=== PATIENT | male | born 1970 | race Caucasian/White ===

== ENCOUNTER 2020-12-17 08:38 | Outpatient (CLI) | payer MEDICARE, SELFPAY ==
--- NOTE | 2020-12-17 08:46 | FL_ITS ---
WS: [id number] DOUBLE CONTRAST UPPER GI EXAMINATION HISTORY: K21.9 - Gastro-esophageal reflux disease without esophagitis COMPARISON: None available. FLUOROSCOPY TIME: 2.5 minutes. Barium mixture traversed normally throughout the esophagus. No filling defects within the stomach. Du odenal bulb was normally distensible and pliable. No gastroesophageal reflux No hiatal hernia was demonstrated on this exam. FL/FL upper GI w air* [id number] IMPRESSION: Normal upper GI examination.
== END 2020-12-17 08:39 | disposition home or self-care (01) ==
LOC: RADWPI 08:41
PROVIDERS: PCP Nurse Practitioner Family; Visit Provider Surgery
DX: K21.9 Gastro-esophageal reflux disease without esophagitis (principal)
CPT/HCPCS: 74246

== ENCOUNTER 2021-02-03 13:11 | Outpatient (CLI) | payer MEDICARE, SELFPAY | END 2021-02-03 13:12 | disposition home or self-care (01) | LOC: WOUND 13:12 | PROVIDERS: PCP Nurse Practitioner Family; Visit Provider Thoracic Surgery (Cardiothoracic Vascular Surgery) | DX: E11.621 Type 2 diabetes mellitus with foot ulcer (principal); L97.422 Non-pressure chronic ulcer of left heel and midfoot with fat layer exposed | CPT/HCPCS: 11042; G0463 ==

== ENCOUNTER 2021-02-05 07:59 | Day surgery (SDC) | payer MEDICARE, SELFPAY ==
[2021-02-03 10:45] VITALS: BMI 37.5
--- NOTE | 2021-02-05 08:07 | ANES.PREANE2 ---
Pre-Anesthetic Assessment Pre-Anesthetic Assessment: Height/Weight: Height 2.03 m Weight 155.129 kg Preop Diagnosis: screning Proposed Procedure: Operation Date: 02/05/21 09:45 Proposed Procedures p Colonoscopy 46296 Z12.11(Not Applicable) - Orlando Olguin MD Familial anesthetic complications: None Was Beta Kennedy taken within 24 hours: Yes Was Clonidine taken within 24 hours: N/A Last intake: NPO > 8 hrs Social: Social History: No alcohol and No tobacco Exam: Pre-Anes Outpt Exam: alert, oriented x 3, clear to auscultation bilaterally and regular rate & rhythm Airway: Cervical ROM: WNL MP: 3 Dentition: Other (missing) Additional comments: full [place] Pulmonary: Pulmonary: COPD and Sleep apnea CV/HEM: CV/HEM: Arrythmia and HTN Comments: hx infective endocarditis afer back surgery infection in 2016, heart doing well now, unable to achieve > 4 METS without SOB, but he attributes this to physical deconditioning. Denies chest pains or palpitations. Metabolic: Metabolic: DM and Hyperlipidemia PFSH Anesthesia PFSH: Family History Denies family history of Anesthesia complication Bleeding disorder Social History Smoking and tobacco status: never smoked Data Anesthesia Cardiac Studies: No Data to Display
[2021-02-05 08:55] VITALS: BP 152/106; PULSE 69; RESP 18; TEMP 36.7; O2SAT 99
[2021-02-05] MEDS: sodium chloride 0.9% 1,000 ML 30 ML IV (09:12)
[2021-02-05 09:14] LABS: Glucose Point of Care 85 mg/dL (70-110)
--- NOTE | 2021-02-05 09:24 | W.PM.OPSUD ---
Surgery/Procedure H&P Update DATE OF PROCEDURE: February 05, 2021 DATE H&P PERFORMED: 01/09/21 H&P UPDATE INFORMATION: I have reviewed H&P completed within last 30 days, I have examined patient prior to procedure and No changes to prior documentation PREOP DIAGNOSIS: Screening colonoscopy PRIMARY INDICATION FOR PROCEDURE: The same PLANNED PROCEDURE: Operation Date: 02/05/21 09:45 Proposed Procedures p Colonoscopy 82953 Z12.11(Not Applicable) - Orlando Olguin MD
[2021-02-05 10:18] VITALS: BP 128/74; PULSE 68; RESP 16; TEMP 36.4; O2SAT 94
[2021-02-05 10:28] VITALS: BP 140/81; PULSE 70; RESP 18; O2SAT 98
--- NOTE | 2021-02-05 13:14 | ANE.PACU2 ---
Inpatient post-anesthesia follow up: Airway intact: Yes Vital signs: Temperature 97.6 F Pulse Rate 70 Respiratory Rate 18 Blood Pressure 140/81 Pulse Oximetry 98 Oxygen Delivery Me thod Room Air Oxygen Flow Rate Fraction of Inspir ed Oxygen Hydration adequate: Yes Nausea and vomiting: No Pain level: 1 Mental status: Baseline
== END 2021-02-05 10:50 | disposition home or self-care (01) ==
PROVIDERS: PCP Nurse Practitioner Family; Visit Provider Surgery
PROC: 0DJD8ZZ Inspection of Lower Intestinal Tract, Via Natural or Artificial Opening Endoscopic (ICD-10-PCS; CPT 45378; principal; 2021-02-05 09:45)
DX: Z12.11 Encounter for screening for malignant neoplasm of colon (principal); D12.2 Benign neoplasm of ascending colon; D12.8 Benign neoplasm of rectum; J44.9 Chronic obstructive pulmonary disease, unspecified; G47.30 Sleep apnea, unspecified; I10 Essential (primary) hypertension; E78.5 Hyperlipidemia, unspecified; E11.9 Type 2 diabetes mellitus without complications
CPT/HCPCS: 36416; 45385; 82962; 88305; 96360; J2704; J7030

== ENCOUNTER 2021-02-10 14:31 | Outpatient (CLI) | payer MEDICARE, SELFPAY | END 2021-02-10 14:32 | disposition home or self-care (01) | LOC: WOUND 14:32 | PROVIDERS: PCP Nurse Practitioner Family; Visit Provider Thoracic Surgery (Cardiothoracic Vascular Surgery) | DX: E11.621 Type 2 diabetes mellitus with foot ulcer (principal); L97.422 Non-pressure chronic ulcer of left heel and midfoot with fat layer exposed | CPT/HCPCS: 11042 ==

== ENCOUNTER 2021-02-17 13:59 | Outpatient (CLI) | payer MEDICARE, SELFPAY | END 2021-02-17 14:00 | disposition home or self-care (01) | LOC: WOUND 14:00 | PROVIDERS: PCP Nurse Practitioner Family; Visit Provider Thoracic Surgery (Cardiothoracic Vascular Surgery) | DX: E11.621 Type 2 diabetes mellitus with foot ulcer (principal); L97.421 Non-pressure chronic ulcer of left heel and midfoot limited to breakdown of skin | CPT/HCPCS: 97597 ==

== ENCOUNTER 2021-02-24 13:49 | Outpatient (CLI) | payer MEDICARE, SELFPAY | END 2021-02-24 13:50 | disposition home or self-care (01) | LOC: WOUND 13:51 | PROVIDERS: PCP Nurse Practitioner Family; Visit Provider Thoracic Surgery (Cardiothoracic Vascular Surgery) | DX: Z09 Encounter for follow-up examination after completed treatment for conditions other than malignant neoplasm (principal) | CPT/HCPCS: 99212 ==

== ENCOUNTER → 2021-05-29 13:27 | Outpatient (BNVA) | payer MEDICARE, SELFPAY | PROVIDERS: PCP Nurse Practitioner Family; Visit Provider Psychiatry & Neurology Psychiatry | DX: F32.9 Major depressive disorder, single episode, unspecified (principal); F41.1 Generalized anxiety disorder; F17.200 Nicotine dependence, unspecified, uncomplicated; Z63.4 Disappearance and death of family member | CPT/HCPCS: 99204 ==

== ENCOUNTER 2021-07-07 14:21 | Outpatient (CLI) | payer MEDICARE, SELFPAY ==
[2021-07-07 15:34] LABS: Basophils % 0.7 %; Eosinophils # 0.1 10^3/uL (0.0-0.8); Hematocrit 40.3 % (42.0-52.0); Hemoglobin 12.7 g/dL (11.7-16.6); Lymphocytes # 1.1 10^3/uL (0.8-4.8); Lymphocytes % 18.8 %; Mean Corpuscular HGB Conc 31.5 g/dL (30.0-36.0); Mean Corpuscular Hemoglobin 28.2 pg (28.0-34.0); Mean Corpuscular Volume 89.6 fl (80-94); Mean Platelet Volume 11.7 fL (7.4-10.4); Monocytes # 0.4 10^3/uL (0.2-0.9); Monocytes % 6.9 %; Neutrophils # 4.34 10^3/uL (1.8-7.7); Neutrophils % 71.4 %; Nucleated Red Blood Cells % 0 %; Platelet Count 182 10^3/cmm (130-400); Red Cell Distribution Width 13.6 % (12.1-15.1); White Blood Count 6.1 10^3/uL (4.0-10.0)
[2021-07-07 16:16] LABS: Calcium 8.5 mg/dL (8.5-10.5)
[2021-07-07 16:21] LABS: Parathyroid Hormone 50.4 pg/mL (15-65)
[2021-07-07 16:27] LABS: Alanine Aminotransferase 29 U/L (0-41); Albumin Level 3.2 g/dL (3.5-5.2); Alkaline Phosphatase 88 IU/L (40-130); Anion Gap 12.5 (5-19); Aspartate Amino Transferase 26 U/L (0-40); Blood Urea Nitrogen 27 mg/dL (6-20); Calcium 8.7 mg/dL (8.5-10.5); Carbon Dioxide 30 mmol/L (22-29); Chloride 105 mmol/L (98-107); Chol HDL Ratio 3.54 mg/dL (1.0-5.00); Cholesterol 145 mg/dL (0-200); Ferritin 290 ng/mL (30-400); Globulin 2.8 g/dL (1.3-4.6); Glomerular Filtration Rate 49.3 mL/min (90-130); Glucose 89 mg/dL (65-115); HDL Cholesterol 41 mg/dL (60-100); Iron 52 ug/dL (59-158); LDL Cholesterol Calculated 73 mg/dL (50-129); LDL HDL Ratio 1.78 RATIO (0.00-3.22); Magnesium 1.9 mg/dL (1.7-2.3); Osmolality Calculated 301 mOsm/kg (285-295); Percent Saturation 19.4 % (20-50); Potassium 4.5 mmol/L (3.5-5.1); Sodium 143 mmol/L (136-145); Thyroid Stimulating Hormone 3.06 uIU/mL (0.27-4.20); Total Bilirubin 0.2 mg/dL (0.15-1.2); Total Iron Binding Capacity 267 mcg/dl; Triglycerides 157 mg/dL (0-150); Unsaturated Iron Binding 215 ug/dL (112-347); Vitamin B12 744 pg/mL (232-1245)
[2021-07-07 16:49] LABS: Folate Level 15.2 ng/mL (4.5-32.2)
[2021-07-10 16:41] LABS: Vit D 1,25 (Oh)2, Total 15 pg/mL (18-72); Vit D2 1,25 (Oh)2 <8 pg/mL; Vit D3 1,25 (Oh)2 15 pg/mL
[2021-07-11 16:29] LABS: Vitamin B1(Thiamin) Plas/Ser 22 nmol/L (8-30)
[2021-07-18 16:02] LABS: Zinc Level, Serum or Plasma 67 mcg/dL (60-130)
== END 2021-07-07 14:22 | disposition home or self-care (01) ==
LOC: LAB 14:35
PROVIDERS: PCP Nurse Practitioner Family; Visit Provider Surgery
DX: E11.9 Type 2 diabetes mellitus without complications (principal); E66.01 Morbid (severe) obesity due to excess calories
CPT/HCPCS: 36415; 80053; 80061; 82310; 82607; 82652; 82728; 82746; 83540; 83550; 83735; 83970; 84425; 84443; 84630; 85025

== ENCOUNTER → 2021-07-10 10:23 | Outpatient (BNVA) | payer MEDICARE, SELFPAY | PROVIDERS: PCP Nurse Practitioner Family; Visit Provider Psychiatry & Neurology Psychiatry | DX: F41.1 Generalized anxiety disorder (principal); F33.2 Major depressive disorder, recurrent severe without psychotic features; F17.200 Nicotine dependence, unspecified, uncomplicated | CPT/HCPCS: 87635; 99214 ==

== ENCOUNTER 2021-07-15 13:45 | Inpatient (IN) | payer MEDICARE, SELFPAY ==
[2021-07-14 09:11] VITALS: BMI 38.3
--- NOTE | 2021-07-14 18:38 | ANES.PREANE2 ---
Pre-Anesthetic Assessment Pre-Anesthetic Assessment: Height/Weight: Height 2.03 m Weight 158.304 kg Preop Diagnosis: Screening colonoscopy Proposed Procedure: Operation Date: 07/15/21 09:00 Proposed Procedures p Laparoscopic Gastric Sleeve w/ EGD 13671 07301 E66.01 Z68.41 e11.9(Not Applicable) - Orlando Olguin MD Was Beta Kennedy taken within 24 hours: Yes Was Clonidine taken within 24 hours: N/A Social: Social History: Tobacco and No alcohol Exam: Pre-Anes Outpt Exam: alert, oriented x 3 and regular rate & rhythm Airway: Submandibular: WNL Cervical ROM: WNL MP: 2 Dentition: Chipped Pulmonary: Pulmonary: Asthma and Sleep apnea CV/HEM: CV/HEM: HTN Metabolic: Metabolic: DM, Hyperlipidemia and Morbid obesity Musc/skel: Musc/skel: Lower Back Pain Neuropsych: Neuropsych: Anxiety and Depression Anesthetic Plan: ASA status: 3 Anesthesia: General Risk of > 500 ml blood loss (7ml/kg in children): No PFSH Anesthesia PFSH: Medical History Chronic major depressive disorder Colon polyp Diabetes Encounter for screening colonoscopy Morbid obesity Family History Denies family history of Anesthesia complication Bleeding disorder Social History Quit status (tobacco): has tried quititng Number of times tried to quit tobacco: 3 Second hand smoke exposure: Yes Data Anesthesia Cardiac Studies: No Data to Display
[2021-07-15] VITALS (15 sets, daily range): BP systolic 130–169; BP diastolic 75–103; PULSE 78–113; RESP 12–20; TEMP 36.1–36.8; O2SAT 91–98
[2021-07-15] MEDS: sodium chloride 0.9% 1,000 ML 999 ML IV (07:51)
[2021-07-15] MEDS: acetaminophen 1,000 MG/100 ML PIGGYBACK 400 MG IV ×2 (07:53→16:04)
[2021-07-15] MEDS: heparin 5,000 unit/mL INJ 1 mL 5000 UNIT SUBCUT (07:55)
--- NOTE | 2021-07-15 07:55 | P.ANESUD_ITS ---
Pre-Anesthetic Update Pre-Anesthetic Assessment: Date of Surgery/Procedure: 07/15/21 Preop Angle gnosis: Screening colonoscopy Proposed Procedure: Operation Date: 07/15/21 09:00 Proposed Procedures p Laparoscopic Gastric Sleeve w/ EGD 41595 76483 E66.01 Z68.41 e11.9(Not Applicable) - Orlando Olguin MD Any changes to Pre-Anesthetic Assessment?: No Last Intake: Intake Last Liquid Date 07/14/21 Last Liquid Time 19:30 Last Solid Date 07/14/21 Last Solid Time 19:30 Vitals: Temperature 97.3 F L 07/15/21 07:34 Temperature Source Temporal Artery S can 07/15/21 07:34 Pulse Rate 78 07/15/21 07:34 Respiratory Rate 18 07/15/21 07:34 Blood Pressure 165/82 07/15/21 07:34 Blood Pressure [place] 109 07/15/21 07:34 Pulse Oximetry 93 07/15/21 07:34 Oxygen Delivery Me thod 07/15/21 07:37 Exam: Pre-Anes Outpt Exam: alert, oriented x 3, clear to auscultation bilaterally and regular rate & rhythm Cardiac Studies: No Data to Display
[2021-07-15] MEDS: scopolamine 1.5 Patch 1 PATCH TRANSDERMA ×2 (07:56→15:05)
[2021-07-15] MEDS: pantoprazole 40 mg SDV IVP (08:00)
--- NOTE | 2021-07-15 09:27 | W.PM.OPSUD ---
Surgery/Procedure H&P Update DATE OF PROCEDURE: July 15, 2021 DATE H&P PERFORMED: 06/19/21 H&P UPDATE INFORMATION: I have reviewed H&P completed within last 30 days, I have examined patient prior to procedure and Changes to prior documentation as noted here (Patient lost 16 pounds over 2 weeks on liquid protein diet.) PREOP DIAGNOSIS: Obesity PRIMARY INDICATION FOR PROCEDURE: The same PLANNED PROCEDURE: Operation Date: 07/15/21 09:00 Proposed Procedures p Laparoscopic Gastric Sleeve w/ EGD 91629 36769 E66.01 Z68.41 e11.9(Not Applicable) - Orlando Olguin MD
[2021-07-15] MEDS: clindamycin 900 MG/50 ML PREMIX 100 MG IV (10:20)
[2021-07-15 10:50] LABS: Glucose Point of Care 72 mg/dL (70-110)
--- NOTE | 2021-07-15 13:04 | P.OP_ITS ---
Operative Report Date of procedure: July 15, 2021 Pre-op Diagnosis: Obesity Post-op diagnosis: same Procedure Done: Laparoscopic vertical sleeve gastrectomy and intraoperative EGD Implants: Surgicel towards the GE junction Specimens removed/disposition: Subtotal gastrectomy status post sleeve gastrectomy with sutures marked proximal Surgeon: Orlando Olguin Tube Sizer And Cutter Operator: Surgical rome Keating/PAT Circulating nurse Sunshine Proctor Anesthesia: General (ALVARO Estrada and Dr. Luz) Estimated blood loss (mL): 20 IV fluids (mL): 1,100 Urine output (mL): 300 Condition: stable Disposition: floor Brief History: Obesity Procedure: Patient was identified in holding area , appropriate pharmacologic DVT prophylaxis was given and preoperative IV fluid hydration, patient was then taken to the operating room where the patient was placed in supine position, intubated by anesthesia prophylactic antibiotics were given per protocol,Time- out was done verifying the patient's name/date of /planned procedure and destination after the procedure, all were in agreement.SCDs confirmed to be functioning, and beta twyla protocol was confirmed. A Viramontes catheter was inserted by the circulating nurse revealing clear urine. A foot board was applied to secure the patient while the patient is placed in reversed Trendelenburg, all pressure points were padded, and the patient was appropriately secured to the table, anesthesia was asked to rotate the table back and forth to verify that the patient is appropriately secured, and that was the case, special attention was paid to the patient's feet due to history of diabetic foot ulcers. As they were well padded. The abdomen was prepped and draped under the usual sterile technique. A transverse incision was made with a 15 blade scalpel approximately 15 cm below the xiphoid process and 3 cm left of the midline.A 5 mm optical trocar port was placed under direct vision into the peritoneal cavity without intial evidence of injury to peritoneal structures upon entry. The peritoneal cavity was insufflated with carbon dioxide gas up to 15 mmHg pressure.A 45? angle laparoscopy was placed through the port into the peritoneal cavity there was no significant blood, fluid, or evidence of intra-abdominal injury under direct visualization,Longer trocars were then used;a 12 mm trocar port was placed in the right epigastric region and a fourth 5 mm trocar port was placed in the mid epigastric region more caudad than and medial to the previous port. A 5 mm trocar port was placed in the left lateral flank and additional 5 mm trocar was inserted midway between the left lateral flank trocar and the initial 5 mm trocar. There after the index 5 mm trocar was switched to a 12 mm trocar under direct visualization after extending the skin incision. I lifted the omentum up to make sure there were no injuries encountered from the initial trocar insertion, the underlying transverse colon and small bowel viscera were normal. A subxiphoid stab incision was made and dissection into the peritoneum with 5 mm obturator. A grasping laparoscopic clamp was inserted through here and clamped to the right eulalia of the diaphragm to elevate The liver for the entirety of the case. All trocars inserted were long arc trocars due to the thick layer of subcutaneous tissue that the patient has Patient was then placed in the reversed Trendelenburg. Following this, the greater curvature of the stomach was freed from the omentum using the Enseal device. This division included the short gastric vessels proximally. This dissection was carried from approximately 4 cm-6 cm proximal to the pylorus and extending all the way up to the angle of Hiss. During this process the posterior aspect of the stomach was mobilized from the underlying peritoneum and the posterior aspect of the stomach was well exposed. With the greater curvature of the stomach exposed from within 4-6 cm of the pylorus and extending to the angle of Hiss, which also included the posterior stomach, a 40 Emir[place] standard template passed under direct vision down the esophagus, stomach, and into the first part of the duodenum by the anesthesia provider and under direct guidance and visualization by me,via the laparoscopy. Using the template 40 Emir[place] aligned along the lesser curvature of the stomach and all the way to the first part of the Duodenum,the 40 [place] Bougie was used as a template the laparoscopic vertical gastric sleeve was performed starting from a point about 5 cm from the pylorus along the greater curvature.Using the Gorst Laparoscopic EMILY linear cutting stapler with Poly Adaptive enforcement, a series of osiel were used to transect the stomach in a vertical fashion along the left side of the template. Through the entire division of the stomach using the staplers,the template was always checked to be in good place and well aligned to the lesser curvature while dividing the stomach. This was carried all the way to the angle of Hiss.Gorst 60 mm Green loads were used for the distal third of the stomach and Gold loads were used for the more proximal part of the stomach and then blue loads with reinforcement.All staplers were reinforced by Endopath. The staple line along the remaining tubularized stomach was tested for leaks and bleeding under direct vision as the 40 [place] template was exchanged (and there was no evidence of blood on the tip of the template) by a standard diagnostic EGD via the mouth by my me after I scrubbed out, insufflation was achieved using CO2 gas and the staple line submerged under saline ,meanwhile a clamp was applied distally onto the end of the tubularized stomach to allow insufflation test for leak. There was no evidence of leak .There was adequate hemostasis along the staple line.EGD was taken out at this point after deflation of the tubularized stomach. The transected partial stomach, which included the greater curvature, was removed from the peritoneum through the first 12 mm trocar site, and was sent fo r permanent pathology.Prior to closure of the fascia. A final look laparoscopy identified no injuries or bleeding. Multiple 5 mm clips were applied to secure hemostasis along the staple line and small piece of Surgicel at the GE junction was placed followed by placement of [id number] suture to grab the omentum onto that same site to secure hemostasis. Bilateral TAP (transversus abdominous plain peripheral nerve block )block using Exparel 20 mL Exparel 40 ml Normal saline 20 ml bupivacaine 0.25% 30 mL on each side injected 20 mL injected the port sites An interrupted #1 PDS suture on a granny needle suture passer was used to close the right epigastric and the other 12 mm trocar left of the midline fascial defects under direct visualization.The other trocars were removed under direct vision and no evidence of bleeding was identified. The pneumoperitoneum was decompressed.All skin incisions were irrigated with saline, then closed with osiel, followed by application of sterile dressings.The patient was extubated and taken to the recovery room with normal vital signs. All counts of instruments,sponges and needles were completed at the end of the procedure I was present for the whole entire procedure
--- NOTE | 2021-07-15 13:58 | PC.NUTR ---
Nutrition consult for post-bariatric surgery received. Have updated diet order per Bariatric Phase 1 guidelines. Will complete full assessment tomorrow 07/16/21.
[2021-07-15] MEDS: sodium chloride 0.9% 1,000 ML 150 ML IV ×2 (15:05→22:04)
[2021-07-15] MEDS: ondansetron 2 mg/ML SDV 2 mL 4 MG IVP (15:06)
[2021-07-15 17:08] LABS: Glucose Point of Care 165 mg/dL (70-110)
[2021-07-15] MEDS: morphine 4 mg/mL SDV 1 mL 2 MG IVP (18:19)
[2021-07-15] MEDS: metoprolol tartrate 50 mg Tablet 75 MG PO (19:46)
--- NOTE | 2021-07-15 19:52 | NUR.SHIFT ---
Dr Pereira called and said to give the 75mg of metoprolol ordered at 2099 as soon as possible due to patients high bp and tachy heart rate. Metoprolol given to patient at 1946. Bp was 174/111. Tameka Reeder LPN
--- NOTE | 2021-07-15 20:22 | PC.NURSE ---
i reported high pulse 110
[2021-07-15 21:18] LABS: Glucose Point of Care 164 mg/dL (70-110)
[2021-07-15] MEDS: lisinopril 10 mg Tablet PO (22:03)
[2021-07-15] MEDS: HYDROmorphone 1 mg/mL INJ 1 mL IVP (23:52)
--- NOTE | 2021-07-15 23:55 | PC.NURSE ---
prn pain med Dilaudid admin per order for primary nurse.
--- NOTE | 2021-07-15 23:59 | PC.NURSE ---
Called Dr. Olguin about Mr. Cochran at 2129 and explained to him that after taking the metoprolol at 1946 patients BP was 174/111. Explained to doctor that patient takes captopril 25mg BID at home per his home meds. Dr. Olguin said to order the Captopril BID for him for now as well. also said that after the GI series in the morning he would consider starting the patient back on his home medications. Non formulary medication ordered through pharmacy and given to patient. BP is still remaining high. Will continue monitoring. Murray is resting in bed with no complaints. HENOK Cuenca
[2021-07-16] VITALS (11 sets, daily range): BP systolic 137–178; BP diastolic 89–100; PULSE 77–103; RESP 16–20; TEMP 36.4–37.2; O2SAT 88–93
--- NOTE | 2021-07-16 01:01 | PC.NURSE ---
i reported high pulse 103 and low 02 88 to nurse
[2021-07-16 02:35] LABS: Hemoglobin 13.3 g/dL (11.7-16.6)
[2021-07-16 03:11] LABS: Anion Gap 20.2 (5-19); Blood Urea Nitrogen 30 mg/dL (6-20); Calcium 8.4 mg/dL (8.5-10.5); Carbon Dioxide 18 mmol/L (22-29); Chloride 108 mmol/L (98-107); Glomerular Filtration Rate 45.8 mL/min (90-130); Glucose 160 mg/dL (65-115); Osmolality Calculated 302 mOsm/kg (285-295); Potassium 5.2 mmol/L (3.5-5.1); Sodium 141 mmol/L (136-145)
[2021-07-16] MEDS: heparin 5,000 unit/mL INJ 1 mL 5000 UNIT SUBCUT ×3 (04:00→20:41)
[2021-07-16] MEDS: sodium chloride 0.9% 1,000 ML 150 ML IV ×2 (04:01→13:16)
[2021-07-16] MEDS: morphine 4 mg/mL SDV 1 mL 2 MG IVP (05:12)
--- NOTE | 2021-07-16 06:14 | PM.PN ---
Documented by User: CECILIA Cadet [email or web address] 07/16/21 06:38 Subjective Subjective: Interval history: Mr. Cochran is postop day one from laparoscopic vertical sleeve gastrectomy. He reports he is overall feeling well. He does report some mild abdominal tenderness at incision sites. Viramontes catheter was removed last night. He has been able to ambulate. He denies fever, nausea, and vomiting. He has not had a bowel movement, but has passed flatus. There were no acute events overnight. Vitals/I&O/Wt Last Vital Signs Temp 98.6 F 07/16/21 04:00 Pulse 97 07/16/21 04:00 Resp 18 07/16/21 05:12 BP 159/94 07/16/21 04:00 Pulse Ox 91 07/16/21 04:00 07/15/21 07/15/21 07/16/21 14:59 22:59 06:59 Intake Total 1150 / 1150 1100 / 2250 892.5 / 3142.5 Output Total 620 / 620 1800 / 2420 Balance 530 / 530 1100 / 1630 -907.5 / 722.5 Weight last 48 hrs Weight 158.304 kg Physical Exam Narrative: EXAM NARRATIVE: General pleasant male in no acute distress. HEENT pupils reactive, oropharynx clear. No JVD or lymphadenopathy. Cardio regular rate and rhythm, positive S1-S2. No murmurs rubs or gallops. Respiratory clear to auscultation bilaterally. No wheezes rales or rhonchi. Abdomen mild tenderness at incision sites. Incisions are dry and clean. Otherwise abdomen soft nontender, no organomegaly, positive bowel sounds. Skin no rash. Extremities no cyanosis clubbing or edema. deferred. Urinary Catheter Management^: Viramontes: Cath Placed During This Visit: yes Reason for Continuing Indwelling Catheter: Perioperative Use in Selected Surgeries Urinary Catheter Date of Insertion: 07/15/21 Urinary Catheter Time of Insertion: 10:30 Data : 07/16/21 02:20 07/16/21 02:20 Other data: Anion gap 20.2 Calcium 8.4 A&P Additional A&P Information Remain n.p.o. until upper GI study is completed today, will reevaluate advancing diet once study is reviewed. Continue incentive spirometry. Encourage ambulation Coding Level of Care Code Acute Lockstitch Hemmer for Chg Fwd Diagnoses S/P laparoscopic sleeve gastrectomy Z98.84 Documented by User: Orlando Olguin MD 07/16/21 18:43 Subjective Subjective: Interval history: Overall patient is feeling well,no acute events overnight,foly catheter emoved on am rounds,BP meds started post op w sips of water. Medications: Reviewed: Yes Physical Exam Urinary Catheter Management^: Viramontes: Cath Placed During This Visit: no Data : 07/16/21 02:20 07/16/21 02:20 A&P Assessment and plan (1) S/P laparoscopic sleeve gastrectomy: S/P Laparoscopic Sleeve Gastrectomy 07/15/21 Will follow on Upper GI study,once cleared will start PO stage one psot Bariatirc surgery Drop IVF to 100 ml /hr Encourge ambulation DVT propylaxis Close monitring of K levels Status: Acute Attestations Medical Necessity Statement*: Patient will require inpatient hospitalization passing two midnights for post op care and awaiting GI study Time Spent in Patient Care: 16 - 35 minutes (>than 50% of time spent in counselling and/or direct pt care on unit). Other Attestations: I have reviewed the medical student chas's evaluation and I did perform physical exam my self and I agree on the assessment and plan of care. Coding Level of Care Code Acute Lockstitch Hemmer for Chg Fwd Diagnoses S/P laparoscopic sleeve gastrectomy Z98.84
[2021-07-16 06:46] LABS: Glucose Point of Care 149 mg/dL (70-110)
--- NOTE | 2021-07-16 08:00 | FL_ITS ---
WS: [id number] [place] upper GI series [id number] REASON FOR EXAM: Status Post Gastric Sleeve FLUOROSCOPY TIME: 0.4 minutes FINDINGS: Expected narrowing of the stomach from the gastric sleeve procedure. Orally ingested contrast passed through the region of the sleeve into the distal stomach and on into the duodenal sweep without reten tion. There was no extravasation of contrast. FL/FL upper GI series 83771 IMPRESSION: Normal postgastric sleeve upper GI examination.
[2021-07-16] MEDS: diatrizoate meglumine 120 mL Sol PO (08:40)
[2021-07-16] MEDS: metoprolol tartrate 50 mg Tablet 75 MG PO ×2 (08:50→20:41)
[2021-07-16] MEDS: lisinopril 10 mg Tablet PO ×2 (08:50→17:28)
[2021-07-16] MEDS: acetaminophen 1,000 MG/100 ML PIGGYBACK 400 MG IV ×3 (08:52→23:52)
--- NOTE | 2021-07-16 09:56 | PC.CHAP ---
Pastoral Care Encounter/Spiritual Assessment Type of Contact [] Declined county nurse visit [] Patient/Family/Request visit [] Outpatient visit [] Follow-up visit [] Physician referral [] Code/Alert [X] Routine visit [] Staff referral [] Actively dying [] Patient sleeping [] Family support [] [] Out of room [] Palliative care [] [] Receiving care in room [] Pre-surgical visit [] Trauma [] Long length of stay [] ICU visit [] Other: Relational/Emotional Strength [X] Patient feels connected with others/family/visitors/staff [] Distress [] Loneliness/isolation [] Abandonment Spirituality of Patient [X] Person of Jania [X] Attends Religious of their Jania [X] Believes in Prayer [] Reads Bible or Roman Catholic materials [] There are Spiritual issues to be addressed Hospital Mortician Interventions [X] Prayer [X] Active listening [X] Non-anxious presence [] Spiritual/emotional support [] Crisis/trauma care [] Spiritual counseling [] Bereavement support [] Provided bereavement packet [] Provided Bible/devotional materials [] Provided toy/stuffed animal, coloring book to patient or family member [] Provided Communion [] Anointing/[place] [] Salvation [X] Completed spiritual assessment [] Other: Impact on Illness or Injury [] Angry [] Fearful [] Anxious [] Often cries [] Exhaustion [] Unable to work [] Unable to attend orthodoxy [] Unable to walk/stand [] Unable to read [] Unable to drive [] Unable to eat/drink [] Unable to sleep [] Unable to be with family [] Patient intubated [] Other: Summary Time spent with patient 15 MIN
[2021-07-16 11:05] LABS: Glucose Point of Care 111 mg/dL (70-110)
[2021-07-16] MEDS: HYDROcodone-acetaminophen 5-325 mg Tablet 1 TAB PO ×2 (13:19→18:47)
--- NOTE | 2021-07-16 16:45 | ANE.PACU2 ---
Inpatient post-anesthesia follow up: Airway intact: Yes Vital signs: Temperature 99.0 F Pulse Rate 89 Respiratory Rate 16 Blood Pressure 141/90 Pulse Oximetry 91 Oxygen Delivery Me thod Room Air Oxygen Flow Rate 0 Fraction of Inspir ed Oxygen Hydration adequate: Yes Nausea and vomiting: No Pain level: 3 Mental status: Baseline
[2021-07-16 17:37] LABS: Glucose Point of Care 126 mg/dL (70-110)
--- NOTE | 2021-07-16 19:49 | PC.NURSE ---
It was reported this nurse that the patient's BP was 169/100 at the start of shift, looking back he has had high pressures all day, this nurse assessed the patient and at the time he denied any pain, DILLON, SOB, or visually changes. BANANA CARRIER took a manual BP and got 160/89.
[2021-07-16 20:37] LABS: Glucose Point of Care 122 mg/dL (70-110)
[2021-07-17] VITALS (12 sets, daily range): BP systolic 160–206; BP diastolic 80–115; PULSE 83–88; RESP 16–20; TEMP 36.4–36.9; O2SAT 91–92
[2021-07-17] MEDS: morphine 4 mg/mL SDV 1 mL 2 MG IVP ×2 (02:45→11:18)
[2021-07-17 03:47] LABS: Hematocrit 36.7 % (42.0-52.0); Hemoglobin 11.9 g/dL (11.7-16.6)
[2021-07-17 04:17] LABS: Anion Gap 12.6 (5-19); Blood Urea Nitrogen 26 mg/dL (6-20); Carbon Dioxide 23 mmol/L (22-29); Chloride 107 mmol/L (98-107); Glomerular Filtration Rate 45.8 mL/min (90-130); Glucose 122 mg/dL (65-115); Osmolality Calculated 292 mOsm/kg (285-295); Potassium 4.6 mmol/L (3.5-5.1); Sodium 138 mmol/L (136-145)
[2021-07-17] MEDS: heparin 5,000 unit/mL INJ 1 mL 5000 UNIT SUBCUT (05:19)
[2021-07-17 06:43] LABS: Glucose Point of Care 122 mg/dL (70-110)
--- NOTE | 2021-07-17 06:47 | P.PN_ITS ---
Subjective Subjective: Interval history: No acute events per night per nursing staff except a trend of high BP fluctuates and respond some to pain meds.BP home meds have been resumed.Adequate UOP. Patient passing gas. Per patient's description has been doing well and denies any complaints. He r eports that he receives 75 mg of metoprolol 3 times daily. Medications: Reviewed: Yes Vitals/I&O/Wt Last Vital Signs Temp 98.4 F 07/17/21 03:02 Pulse 83 07/17/21 03:02 Resp 16 07/17/21 03:02 BP 160/80 07/17/21 03:02 Pulse Ox 92 07/17/21 03:02 07/16/21 07/16/21 07/17/21 14:59 22:59 06:59 Intake Total 1340 / 1340 460 / 1800 340 / 2140 Output Total 400 / 400 1375 / 1775 Balance 1340 / 1340 60 / 1400 -1035 / 365 Physical Exam Narrative: EXAM NARRATIVE: Patient is conscious alert oriented X3 BMI 38.3 Head and neck examination PERRLA no masses no cervical lymphadenopathy no ja undice Cardiac examination audible S1-S2 no murmurs no gallops no arrhythmias Chest is clear bilateral,abscence of Rhonchi or wheezes,no surgical emphysema Abdomen nontender nondistended soft no organomegaly guarding or rigidity/no signs of peritonitis. Incisions are clean dry and intact and skin osiel in place Urinary Catheter Management^: Viramontes: Cath Placed During This Visit: yes, but has since been removed by the nurse Reason for Continuing Indwelling Catheter: Perioperative Use in Selected Surg eries Urinary Catheter Date of Insertion: 07/15/21 Urinary Catheter Time of Insertion: 10:30 Date Urinary Catheter Removed: 07/16/21 Time Urinary Catheter Discontinued: 06:05 Data : 07/17/21 03:33 07/17/21 03:33 Attestation for Other Data: I personally reviewed and interpreted the following: (Normal looking gastric conduit s/p Gastric sleeve w/o extravasation or strictures.) Other data: Upper GI study: Expected narrowing of the stomach from the gastric sleeve procedure. Orally ingested contrast passed through the region of the sleeve into the distal stomach and on into the duodenal sweep without retention. There was no extravasation of contrast. FL/[place] upper GI series [id number] IMPRESSION: Normal postgastric sleeve upper GI examination. A&P Assessment and plan (1) S/P laparoscopic sleeve gastrectomy: Assessment Status post laparoscopic sleeve gastrectomy 07/15/2021. Plan of care; Continue p.o. intake as patient tolerating it well. We will adjust blood pressure medications after confirming with pharmacy. Consider hospitalist consultation for blood pressure management Potential discharge home today when appropriate Assurance and education All questions have been answered. Status: Acute Attestations Medical Necessity Statement*: Patient requiring inpatient hospitalization passing 2 midnights for perioperative bariatric surgery care. Time Spent in Patient Care: (>than 50% of time spent in counselling and/or direct pt care on unit) . Coding Level of Care Code Acute Venetian Blind Cleaner And Repairer for Chg Fwd Diagnoses S/P laparoscopic sleeve gastrectomy Z98.84
[2021-07-17] MEDS: hyDRALAzine 20 mg/mL INJ 1 mL 10 MG IVP (07:15)
[2021-07-17] MEDS: HYDROcodone-acetaminophen 5-325 mg Tablet 1 TAB PO (07:25)
[2021-07-17] MEDS: tamsulosin 0.4 mg Capsule PO (08:08)
[2021-07-17] MEDS: metoprolol tartrate 50 mg Tablet 75 MG PO ×2 (08:08→14:31)
[2021-07-17] MEDS: lisinopril 10 mg Tablet PO (08:08)
[2021-07-17] MEDS: sodium chloride 0.9% 1,000 ML 150 ML IV (09:56)
[2021-07-17] MEDS: famotidine 20 mg/2 mL INJ IVP (11:16)
--- NOTE | 2021-07-17 11:27 | PM.CONSULT ---
Providers/Reason For Consult Consulting Physician/Specialty*: Ruy Nguyen MD Reason for Consult*: Elevated blood pressure Attending Physician: Orlando Olguin MD Primary Care Provider: ALONDRA Caldera History of Present Illness History of Present Illness Abimael Cochran is a 51 year old male who I am seeing for elevated blood pressure. On July 15 he underwent laparoscopic vertical sleeve gastrectomy. From what I understand he has done well with the surgery with no significant complications. Blood pressure has been high so I been consulted. Patient reports he is asymptomatic without chest discomfort or other symptomatology. Nurse reports that his metoprolol has just been adjusted to 3 times a day which he was taking at home. Review of Systems General: Reports: 10 or more systems reviewed and unremarkable except in HPI and below Const: Denies: fever(s) Eyes: Denies: change in vision ENMT: Denies: throat pain Card: Denies: chest pain Resp: Denies: dyspnea GI: Reports: abdominal pain (Postsurgical) : Denies: flank pain Musc: Denies: neck pain Skin/Breast: Denies: rash Neuro: Denies: headache(s) Psych: Denies: anxiety Endo: Denies: polyuria Liban/Lymph: Denies: easy bruising All/Imm: Denies: urticaria Meds/Allergies Home Medications and Allergies Home Medications Medication Instructions Recorded Confirmed Last Taken Type albuterol sulfate 90 mcg/actuation 2 puff INHALATION Q6H PRN 11/07/20 07/15/21 07/13/21 History aerosol inhaler atorvastatin 40 mg tablet 40 mg PO DAILY 11/07/20 07/15/21 07/14/21 History captopril 25 mg tablet 25 mg PO BID 11/07/20 07/15/21 07/14/21 History cetirizine 10 mg tablet 10 mg PO DAILY 11/07/20 07/15/21 07/14/21 History diltiazem HCl 240 mg 240 mg PO DAILY 11/07/20 07/15/21 07/14/21 History capsule,extended release 24 hr fluticasone furoate 50 1 inh INHALATION BID ea 11/07/20 07/15/21 07/11/21 History mcg/actuation blister powder for inhalation insulin aspart U-100 100 unit/mL 100 unit SUBCUT DAILY 11/07/20 07/15/21 07/09/21 History (3 mL) subcutaneous pen insulin glargine U-300 conc 300 60 unit SUBCUT BID ml 11/07/20 07/15/21 07/09/21 History unit/mL (3 mL) subcutaneous pen oxycodone 10 mg tablet 10 mg PO Q6H PRN 11/07/20 07/15/21 07/14/21 History tamsulosin 0.4 mg capsule 0.4 mg PO DAILY 11/07/20 07/15/21 07/14/21 History aspirin 81 mg PO DAILY 02/03/21 07/15/21 07/11/21 History brexpiprazole 2 mg tablet 2 mg PO DAILY #30 tab 05/29/21 07/15/21 07/14/21 Rx cyclobenzaprine 10 mg tablet 10 mg PO TID 05/29/21 07/15/21 06/25/21 History metoprolol tartrate 75 mg tablet 75 mg PO TID tab 05/29/21 07/15/21 07/15/21 06:00 History multivitamin 1 tab PO DAILY 05/29/21 07/15/21 07/14/21 History pregabalin 100 mg capsule 100 mg PO TID cap 05/29/21 07/15/21 07/14/21 History sertraline 100 mg tablet 150 mg PO DAILY #45 tab 05/29/21 07/15/21 07/14/21 Rx trazodone 100 mg tablet 200 mg PO .HS PRN #60 tab 05/29/21 07/15/21 07/14/21 Rx alprazolam 0.5 mg tablet 0.5 mg PO DAILY PRN #14 tab 07/10/21 07/15/21 07/14/21 Rx duloxetine 200 mg PO DAILY 07/14/21 07/15/21 07/14/21 History Allergies Allergy/AdvReac Type Severity Reaction Status Date / Time diphenhydramine Allergy Unknown Unknown Verified 07/15/21 07:30 [From Benadryl] ertapenem [From Invanz] Allergy Unknown Unknown Verified 07/15/21 07:30 Current Medications Current Medications Generic Name Dose Route Start Last Admin Trade Name Freq PRN Reason Stop Dose Admin Hydrocodone Bitart/Acetaminophen 1 tab 07/16/21 13:11 07/17/21 07:25 Hydrocodone-Acetaminophen 5-325 Mg Tablet PO 1 tab Q6H PRN Administration MODERATE PAIN Famotidine 20 mg 07/17/21 11:00 07/17/21 11:16 Famotidine 20 Mg/2 Ml Inj IVP 20 mg Q12H ISABEL Administration Hydromorphone HCl 1 mg 07/15/21 13:05 07/15/21 23:52 Hydromorphone 1 Mg/Ml Inj 1 Ml IVP 1 mg Q2H PRN Administration PAIN Sodium Chloride 1,000 mls @ 50 mls/hr 07/15/21 13:15 07/17/21 09:56 Sodium Chloride 0.9% IV 150 mls/hr .Q20H ISABEL Administration Insulin Aspart 0 unit 07/15/21 18:00 07/17/21 07:32 Insulin Aspart 100 Unit/1 Ml SUBCUT Not Given [facility] Protocol Lisinopril 10 mg 07/15/21 22:00 07/17/21 08:08 Lisinopril 10 Mg Tablet PO 10 mg BID ISABEL Administration Morphine Sulfate 2 mg 07/15/21 13:05 07/17/21 11:18 Morphine 4 Mg/Ml Sdv 1 Ml IVP 2 mg Q2H PRN Administration SEVERE PAIN Ondansetron HCl 4 mg 07/15/21 13:05 07/15/21 15:06 Ondansetron 2 Mg/Ml Sdv 2 Ml IVP 4 mg Q6H PRN Administration NAUSEA AND VOMITING Scopolamine 1 patch 07/15/21 13:15 07/15/21 15:05 Scopolamine 1.5 Patch TRANSDERMA 1 patch Q3D ISABEL Administration Tamsulosin HCl 0.4 mg 07/17/21 09:00 07/17/21 08:08 Tamsulosin 0.4 Mg Capsule PO 0.4 mg DAILY ISABEL Administration PFSH Acute PFSH: Medical History (Updated 07/17/21 @ 13:36 by Ruy Nguyen MD) Chronic kidney disease Chronic major depressive disorder Colon polyp Diabetes Encounter for screening colonoscopy GERD (gastroesophageal reflux disease) Hyperlipidemia Hypertension Morbid obesity Surgical History (Updated 07/17/21 @ 13:35 by Ruy Nguyen MD) History of colonoscopy with polypectomy History of foot surgery History of shoulder surgery History of tonsillectomy Family History Denies family history of Anesthesia complication Bleeding disorder Social History Quit status (tobacco): has tried quititng Number of times tried to quit tobacco: 3 Second hand smoke exposure: Yes Vitals/I&O/Wt Last Vital Signs Temp 97.6 F 07/17/21 07:08 Pulse 88 07/17/21 07:08 Resp 20 H 07/17/21 11:18 BP 164/98 07/17/21 09:45 Pulse Ox 91 07/17/21 07:08 07/16/21 07/17/21 07/17/21 22:59 06:59 14:59 Intake Total 1460 / 2800 340 / 3140 310 / 310 Output Total 400 / 400 1375 / 1775 875 / 875 Balance 1060 / 2400 -1035 / 1365 -565 / -565 Physical Exam Narrative: EXAM NARRATIVE: General exam is a white male, no distress HEENT: Atraumatic normocephalic. Oropharynx clear Neck is supple no lymphadenopathy or thyromegaly Cardiovascular regular rate and rhythm, no murmur Lungs clear Abdomen is soft. Laparoscopic surgical sites noted without significant drainage. deferred Extremities no cyanosis clubbing or edema, cap refill brisk Skin without rash Neuro no obvious focal deficits. Urinary Catheter Management^: Viramontes: Cath Placed During This Visit: yes, but has since been removed by the nurse Reason for Continuing Indwelling Catheter: Perioperative Use in Selected Surgeries Urinary Catheter Date of Insertion: 07/15/21 Urinary Catheter Time of Insertion: 10:30 Date Urinary Catheter Removed: 07/16/21 Time Urinary Catheter Discontinued: 06:05 A&P Assessment and plan (1) Hypertension: Significant elevations in have been recorded. Agree with increasing his metoprolol to 3 times daily Add back his Cardizem which he takes at home We will restart his Lyrica he takes for neuropathy. Discontinuation of this abruptly can occasionally cause hypertension. Continue his lisinopril he has been placed on here in substitution for his captopril No issues from a blood pressure standpoint to keep him in the hospital. He can resume his blood pressure medications, and do home blood pressure monitoring if discharged. Status: Acute (2) Diabetes: Currently on sliding scale Status: Chronic (3) Peripheral neuropathy: Will resume Lyrica Status: Acute (4) Morbid obesity with BMI of 40.0-44.9, adult: Status post laparoscopic gastric sleeve Status: Chronic Additional A&P Information Thank you for this consultation. Consult Attestations Medical Necessity Statement: As per primary Time Spent in Patient Care: Greater than 35 minutes Coding Level of Care Code Acute Geriatric Personal Care Aide for Rhondag Fwd Diagnoses Hypertension I10 Diabetes E11.9 Peripheral neuropathy G62.9 Morbid obesity with BMI of 40.0-44.9, adult E66.01; Z68.41
[2021-07-17] MEDS: dilTIAZem ER (24HR) 240 mg Capsule PO (11:49)
[2021-07-17 12:03] LABS: Glucose Point of Care 175 mg/dL (70-110)
--- NOTE | 2021-07-17 14:08 | P.DS_ITS ---
Discharge Providers Date of Admission: 07/15/21 13:45 Date of Discharge: July 17, 2021 Attending Provider at Admission: Orlando Olguin MD Attending Provider at Discharge: Orlando Olguin MD Primary Care Provider: ALONDRA Caldera Diagnoses at Discharge Discharge Diagnosis (1) S/P laparoscopic sleeve gastrectomy: Status: Acute Reason for Visit Reason for Visit: lap gastric sleeve Hospital Course Hospital Course Mr. Cochran is a pleasant 51 years old gentleman with history of obesity and associated multiple medical comorbidities. Patient undergone uneventful laparoscopic vertical sleeve gastrectomy. Postoperative course showed high blood pressure that required resumption of home medications and hospitalist was consulted for further evaluation and adjustment of medications. Adequate urine output and patient has been passing gas. Pain is under control. And patient's hyperglycemia was under appropriate control based on a sliding scale. Patient has been receiving pharmacologic DVT prophylaxis as well as SCDs and has been mobile. And has been working on the incentive spirometer. Upper GI study was done and showed appropriate postoperative findings. Patient meets the appropriate criteria for safe discharge and [facility] with regard to hypertension, is deemed appropriate to be discharged home and resume his blood pressure medications. Patient was offered pain medications yet he prefers to stay on his chronic pain dosages. Patient was educated about the importance of following up with the primary care provider service upon discharge for close monitoring of blood glucose and hypertension. Physical Exam Urinary Catheter Management^: Viramontes: Cath Placed During This Visit: yes, but has since been removed by the nurse Reason for Continuing Indwelling Catheter: Perioperative Use in Selected Surgeries Urinary Catheter Date of Insertion: 07/15/21 Urinary Catheter Time of Insertion: 10:30 Date Urinary Catheter Removed: 07/16/21 Time Urinary Catheter Discontinued: 06:05 Discharge Data Data Completed and Pending: Completed Studies During Hospitalization Category Date Time Status [place] [id number] Routine Exams 07/16/21 08:00 Completed Pathology: Surgic al [PTH] Routine Pth 07/15/21 13:38 Completed Pending at discharge Category Date Time Status ES surgery / GI i mages Routine Exams 07/15/21 11:42 Ordered Basic Metabolic P hazel AM LABS Lab 07/18/21 04:00 Ordered Hemoglobin and He matocrit AM LABS Lab 07/18/21 04:00 Ordered Labs from last 24 hours 07/17/21 07/17/21 07/17/21 11:46 06:32 03:33 Hgb Hct Sodium 138 Potassium 4.6 Chloride 107 Carbon Dioxide 23 Anion Gap 12.6 BUN 26 H Creatinine 1.6 H GFR Calculation 45.8 L Glucose 122 H POC Glucose 175 H 122 H Calculated Osmolal ity 292 Calcium 8.0 L 07/17/21 07/16/21 07/16/21 03:33 20:28 17:34 Hgb 11.9 Hct 36.7 L Sodium Potassium Chloride Carbon Dioxide Anion Gap BUN Creatinine GFR Calculation Glucose POC Glucose 122 H 126 H Calculated Osmolal ity Calcium Vitals: Last Vital Signs Temp 97.6 F 07/17/21 11:50 Pulse 87 07/17/21 11:47 Resp 18 07/17/21 11:50 BP 174/96 07/17/21 11:47 Pulse Ox 92 07/17/21 11:50 Discharge Plan Discharge Patient Disposition: Home Condition: Stable Prescriptions: New Protonix 40 mg tablet,delayed release (DR/EC) 40 mg PO DAILY 30 Days Qty: 30 RF: 3 Zofran 4 mg tablet 4 mg PO Q6H PRN (Reason: nausea and vomiting) Qty: 30 RF: 2 Continued atorvastatin 40 mg tablet 40 mg PO DAILY RF: 0 captopril 25 mg tablet 25 mg PO BID RF: 0 diltiazem HCl [Cartia XT] 240 mg capsule,extended release 24hr 240 mg PO DAILY RF: 0 cetirizine 10 mg tablet 10 mg PO DAILY RF: 0 fluticasone furoate 50 mcg/actuation blister with device 1 inh inhalation BID RF: 0 insulin aspart U-100 [Novolog Flexpen U-100 Insulin] 100 unit/mL (3 mL) insulin pen 100 unit SUBCUT DAILY RF: 0 oxycodone 10 mg tablet 10 mg PO Q6H PRN (Reason: Pain) RF: 0 tamsulosin [Flomax] 0.4 mg capsule 0.4 mg PO DAILY RF: 0 Toujeo Max U-300 SoloStar 300 unit/mL (3 mL) insulin pen 60 unit SUBCUT BID RF: 0 albuterol sulfate [Ventolin HFA] 90 mcg/actuation HFA aerosol inhaler 2 puff inhalation Q6H PRN (Reason: sob) RF: 0 metoprolol tartrate 75 mg tablet 75 mg PO TID RF: 0 pregabalin [Lyrica] 100 mg capsule 100 mg PO TID RF: 0 multivitamin Tablet 1 tab PO DAILY RF: 0 cyclobenzaprine 10 mg tablet 10 mg PO TID RF: 0 sertraline [Zoloft] 100 mg tablet 150 mg PO DAILY Qty: 45 RF: 2 trazodone 100 mg tablet 200 mg PO .HS PRN (Reason: insomnia) Qty: 60 RF: 2 Rexulti 2 mg tablet 2 mg PO DAILY Qty: 30 RF: 2 alprazolam [Xanax] 0.5 mg tablet 0.5 mg PO DAILY PRN (Reason: anxiety) Qty: 14 RF: 0 duloxetine 60 mg capsule,delayed release(DR/EC) 200 mg PO DAILY RF: 0 Held aspirin 81 mg Tablet,Delayed Release (Dr/Ec) 81 mg PO DAILY RF: 0 Hold Instructions: Resume on 07/23/21. Discharge Orders: Discharge Order (Routine); Ordered 07/17/21 Ordered By: Orlando Olguin Referrals: Orlando Olguin MD [Physician] - (Return to bariatric surgery office in person in 1 week) Discharge Diet: As Directed Discharge Activity: Limit activity as instructed Patient Instructions: Opioid Safety Activity Restrictions/Additional Instructions: 1. Patient can shower after 48 hours from surgery 2. Remove Dermabond 7 to 10 days after surgery, if there is a secondary dressing can take down after 48 hours. 3. Up and walking as tolerated 4. Do NOT lift more than 5 pounds first 2 weeks after surgery and not more than 25 pounds 6 to 8 weeks after surgery. 5. Do not operate heavy machinery or drive while using pain medications. 6.Contact the office or return to the ER for worsening nausea vomiting fevers or chills, or noticing any redness around incision sites or discharge. Diet guidelines Stage 1 When do I start this stage? The day after your surgery (Day 1). You will get to start this stage after you pass the upper GI study and/or methylene blue test. How long will I be on this stage? Day 1 thru day 2 or until you are discharged from the hospital. Goals: ? Drink 4 to 6 ounces of fluid per hour. ? Aim for a total of 64 ounces of fluid daily. Add the following food/beverages to your diet: Clear broth or bouillon 100% no sugar added apple, cranberry, or grape juice. Dilute with 1 part juice and 1 part water. No citrus justice (i.e. organe juice, grapefruit juice, etc.) Limit to 8 ounces per or less per day. Tea (do not add milk) Coffee (do not add milk or creamer) Sugar-free gelatin Sugar-free popsicles Sugar-free flavored beverages (Crystal Light?, Sugar-Free Javier-Aid?, Propel?, PowerAde Zero?, Vitamin Water 10?, Fruit?0?, Sob? Lean?, etc.) Artificial sweetener of your choice Stage 2 When do I start this stage? Day 3 (or once you are discharged from the hospital) How long will I be on this stage? Day 3 thru Day 13 Goals: ? Drink 4 to 6 ounces of fluid per hour. ? Aim for a total of 64 ounces of fluid daily. ? Aim to meet protein goals with liquid protein supplements Add the following food/beverages to your diet: Protein supplements (thin, water-based supplement may be easier to digest at first while milk-based supplements may feel ``heavy?? and uncomfortable at first) Milk: 1%, skim, light soy milk, or lactose-free milk Educate patient about the importance to monitor blood glucose closely at home due to the need for adjustment of his insulin accordingly, guided by patient's primary care provider supervision. Also the importance of close monitoring of blood pressure. Discharge Attestations Time Spent in Discharge Care*: greater than 30 min Specific Discharge Activities: educating patient Status at Discharge: Cognitive status at discharge: cognitively intact , Behavioral status at discharge: cooperative , Functional status at discharge: independent ambulation Overall status at discharge: patient is progressing back to baseline Quality Metrics Clinical Quality Measures During this hospital stay, did patient experience: None Coding Level of Care Code Acute Chg FW DC note Diagnoses S/P laparoscopic sleeve gastrectomy Z98.84
[2021-07-17] MEDS: pregabalin 100 mg Capsule PO (14:31)
--- NOTE | 2021-07-18 08:31 | PC.SOCIAL ---
discharge follow up call made, spoke with patient. patient reports he is doing good. patient picked up zofran and protonix from the pharmacy and he is taking as directed. patient is aware to hold aspirin, he reports until next week when he sees Dr. Lee. patient is taking oxycodone for patient with pain relief. patient is aware of follow up appointment dates and times with pcp and dr. lee. discussed wound care with patient, shower after 48 hours, dermabond in place. patient denies any redness or swelling to incision sites. patient is aware of lifting restrictions. patient is on day 3 of the diet plan and has understanding. patient denies questions or concerns.
--- NOTE | 2021-07-18 14:24 | PC.RESP ---
SMOKING CESSATION INFORMATION SENT TO PATIENT.
== END 2021-07-17 16:26 | disposition home or self-care (01) | DRG 621 ==
LOC: MEDSURG 13:49
PROVIDERS: Admitting Provider Surgery; PCP Nurse Practitioner Family; Visit Provider Surgery
PROC: 0DB64Z3 Excision of Stomach, Percutaneous Endoscopic Approach, Vertical (ICD-10-PCS; CPT 43775; principal; 2021-07-15 09:00)
PROC: 0DJ08ZZ Inspection of Upper Intestinal Tract, Via Natural or Artificial Opening Endoscopic (ICD-10-PCS; CPT 43235; 2021-07-15 09:00)
DX: E66.01 Morbid (severe) obesity due to excess calories (principal); Z68.41 Body mass index [BMI] 40.0-44.9, adult; E11.9 Type 2 diabetes mellitus without complications; K21.9 Gastro-esophageal reflux disease without esophagitis; J44.9 Chronic obstructive pulmonary disease, unspecified; I10 Essential (primary) hypertension; G47.33 Obstructive sleep apnea (adult) (pediatric); G89.29 Other chronic pain; Z99.89 Dependence on other enabling machines and devices; M54.9 Dorsalgia, unspecified; F41.9 Anxiety disorder, unspecified; Z86.010 Personal history of colon polyps; Z79.51 Long term (current) use of inhaled steroids; Z79.82 Long term (current) use of aspirin; Z79.4 Long term (current) use of insulin; Z79.891 Long term (current) use of opiate analgesic; F32.9 Major depressive disorder, single episode, unspecified; F17.210 Nicotine dependence, cigarettes, uncomplicated; G62.9 Polyneuropathy, unspecified
CPT/HCPCS: 36415; 36416; 51702; 74240; 80048; 82962; 85014; 85018; 88309; 96372; C9113; C9290; J0330; J0360; J0610; J1100; J1170; J1644; J1815; J2270; J2310; J2405; J2704; J2710; J3010; J3490; J7030; Q9963

== ENCOUNTER → 2021-08-21 10:25 | Outpatient (BNVA) | payer MEDICARE, SELFPAY | PROVIDERS: PCP Nurse Practitioner Family; Visit Provider Psychiatry & Neurology Psychiatry | DX: F41.1 Generalized anxiety disorder (principal); F33.2 Major depressive disorder, recurrent severe without psychotic features; F17.200 Nicotine dependence, unspecified, uncomplicated | CPT/HCPCS: 99213 ==

== ENCOUNTER → 2021-09-11 08:14 | Outpatient (BNVA) | payer MEDICARE, SELFPAY | PROVIDERS: PCP Nurse Practitioner Family; Visit Provider Social Worker | DX: F33.2 Major depressive disorder, recurrent severe without psychotic features (principal); F41.1 Generalized anxiety disorder; Z63.4 Disappearance and death of family member | CPT/HCPCS: 90834 ==

== ENCOUNTER → 2021-09-17 12:18 | Outpatient (BNVA) | payer MEDICARE, SELFPAY | PROVIDERS: PCP Nurse Practitioner Family; Visit Provider Social Worker | DX: F33.2 Major depressive disorder, recurrent severe without psychotic features (principal); F41.1 Generalized anxiety disorder; Z63.4 Disappearance and death of family member | CPT/HCPCS: 90834 ==

== ENCOUNTER → 2021-09-25 08:14 | Outpatient (BNVA) | payer MEDICARE, SELFPAY | PROVIDERS: PCP Nurse Practitioner Family; Visit Provider Social Worker | DX: F33.2 Major depressive disorder, recurrent severe without psychotic features (principal); F41.1 Generalized anxiety disorder | CPT/HCPCS: 90832 ==

== ENCOUNTER → 2021-10-01 11:16 | Outpatient (BNVA) | payer MEDICARE, SELFPAY | PROVIDERS: PCP Nurse Practitioner Family; Visit Provider Social Worker | DX: F33.2 Major depressive disorder, recurrent severe without psychotic features (principal); F41.1 Generalized anxiety disorder; Z63.4 Disappearance and death of family member | CPT/HCPCS: 90837; 90834 ==

== ENCOUNTER → 2021-10-09 08:15 | Outpatient (BNVA) | payer MEDICARE, SELFPAY | PROVIDERS: PCP Nurse Practitioner Family; Visit Provider Social Worker | DX: F33.2 Major depressive disorder, recurrent severe without psychotic features (principal); F41.1 Generalized anxiety disorder | CPT/HCPCS: 90834 ==

== ENCOUNTER 2021-10-13 15:42 | Outpatient (CLI) | payer MEDICARE, SELFPAY ==
[2021-10-13 16:21] LABS: Basophils # 0.1 10^3/uL (0.0-0.1); Basophils % 0.6 %; Eosinophils # 0.1 10^3/uL (0.0-0.8); Eosinophils % 1.7 %; Hematocrit 41.7 % (42.0-52.0); Hemoglobin 13.4 g/dL (11.7-16.6); Lymphocytes # 1.3 10^3/uL (0.8-4.8); Lymphocytes % 17.3 %; Mean Corpuscular HGB Conc 32.1 g/dL (30.0-36.0); Mean Corpuscular Hemoglobin 27.3 pg (28.0-34.0); Mean Corpuscular Volume 85.1 fl (80-94); Mean Platelet Volume 11.2 fL (7.4-10.4); Monocytes # 0.4 10^3/uL (0.2-0.9); Monocytes % 5.4 %; Neutrophils % 74.7 %; Nucleated Red Blood Cells % 0 %; Platelet Count 204 10^3/cmm (130-400); Red Cell Distribution Width 14.1 % (12.1-15.1); White Blood Count 7.8 10^3/uL (4.0-10.0)
[2021-10-13 16:50] LABS: Alanine Aminotransferase 19 U/L (0-41); Albumin Level 3.7 g/dL (3.5-5.2); Alkaline Phosphatase 88 IU/L (40-130); Anion Gap 16.5 (5-19); Aspartate Amino Transferase 15 U/L (0-40); Blood Urea Nitrogen 23 mg/dL (6-20); Calcium 8.5 mg/dL (8.5-10.5); Carbon Dioxide 24 mmol/L (22-29); Chloride 104 mmol/L (98-107); Chol HDL Ratio 3.75 mg/dL (1.0-5.00); Cholesterol 180 mg/dL (0-200); Ferritin 285 ng/mL (30-400); Globulin 2.7 g/dL (1.3-4.6); Glomerular Filtration Rate 49.3 mL/min (90-130); Glucose 135 mg/dL (65-115); HDL Cholesterol 48 mg/dL (60-100); Iron 81 ug/dL (59-158); LDL Cholesterol Calculated 95 mg/dL (50-129); LDL HDL Ratio 1.98 RATIO (0.00-3.22); Magnesium 1.8 mg/dL (1.7-2.3); Osmolality Calculated 296 mOsm/kg (285-295); Percent Saturation 34.1 % (20-50); Potassium 4.5 mmol/L (3.5-5.1); Sodium 140 mmol/L (136-145); Total Bilirubin 0.2 mg/dL (0.15-1.2); Total Iron Binding Capacity 237 mcg/dl; Total Protein 6.4 g/dL (6.6-8.7); Triglycerides 187 mg/dL (0-150); Unsaturated Iron Binding 156 ug/dL (112-347)
[2021-10-13 16:56] LABS: Calcium 8.4 mg/dL (8.5-10.5)
[2021-10-13 17:03] LABS: Parathyroid Hormone 57.6 pg/mL (15-65); Vitamin B12 1130 pg/mL (232-1245)
[2021-10-13 17:29] LABS: Folate Level > 20.0 ng/mL (4.5-32.2)
[2021-10-17 12:18] LABS: Vit D 1,25 (Oh)2, Total 45 pg/mL (18-72); Vit D2 1,25 (Oh)2 <8 pg/mL; Vit D3 1,25 (Oh)2 45 pg/mL
[2021-10-17 17:43] LABS: Vitamin B1(Thiamin) Plas/Ser 24 nmol/L (8-30)
[2021-10-19 08:33] LABS: Zinc Level, Serum or Plasma 59 mcg/dL (60-130)
== END 2021-10-13 15:43 | disposition home or self-care (01) ==
PROVIDERS: PCP Nurse Practitioner Family; Visit Provider Surgery
DX: Z98.84 Bariatric surgery status (principal)
CPT/HCPCS: 80053; 80061; 82310; 82607; 82652; 82728; 82746; 83540; 83550; 83735; 83970; 84425; 84630; 85025

== ENCOUNTER → 2024-02-09 09:58 | Outpatient (BNVA) | payer MEDICARE, SELFPAY | PROVIDERS: PCP Nurse Practitioner Family; Referring Provider Nurse Practitioner Family; Visit Provider Anesthesiology Pain Medicine | DX: M54.16 Radiculopathy, lumbar region (principal); G89.29 Other chronic pain; F11.90 Opioid use, unspecified, uncomplicated; G62.9 Polyneuropathy, unspecified; F12.10 Cannabis abuse, uncomplicated; F33.2 Major depressive disorder, recurrent severe without psychotic features; F41.1 Generalized anxiety disorder; M47.816 Spondylosis without myelopathy or radiculopathy, lumbar region | CPT/HCPCS: 99204 ==

== ENCOUNTER 2024-04-03 08:24 | Outpatient (CLI) | payer MEDICARE, SELFPAY ==
--- NOTE | 2024-04-03 08:31 | MR_ITS ---
WS: [id number] MRI LUMBAR SPINE NONCONTRAST TECHNIQUE: Sagittal T1, T2 and STIR imaging. Axial T1 and T2 imaging. CLINICAL INFORMATION: M54.16 - Radiculopathy, lumbar region COMPARISON: None. FINDINGS: Lumbar curve convex RIGHT. No acute compression fractures. Ankylosis across the L2-3 disc space is ne w since 2014. Complete loss of the L2-3 disc space. Ankylosis across the L3-4 disc space. Anterior hy pertrophic changes at L2-3. L1-L2: Mild osteophytic ridging. Mild LEFT foraminal narrowing. Mild facet arthropathy. L2-L3: Bony fusion across the L2-3 disc space with evidence of prior surgery. Moderate LEFT and no si gnificant RIGHT bony foraminal narrowing. Moderate facet arthropathy. Laminectomy defects. L3-L4: Partial fusion across the L3-4 disc space. Mild LEFT and no significant RIGHT foraminal narrow ing. Narrowing of the LEFT subarticular recess. Moderate facet arthropathy. L4-L5: Mild disc bulge with osteophytic ridging. Moderate facet arthropathy. Mild RIGHT and no signif icant LEFT foraminal narrowing. L5-S1: Mild disc bulging with endplate ridging. Moderate facet arthropathy. Mild RIGHT and no signifi cant LEFT foraminal narrowing. Visualized pelvic bony structures: Normal. Paravertebral soft tissues: Normal. MR/MR lumbar spine wo con* [id number] IMPRESSION: 1. Lumbar curve convex RIGHT. No acute compression. 2. Postoperative changes with bony fusion across the L2-3 and L3-4 disc spaces new from previous with laminectomy defects. Complete loss of the L2-3 disc spa ce. 3. Mild LEFT L1-2 and moderate LEFT L2-3 foraminal narrowing. 4. Mild LEFT L3-4 foraminal narrowing with narrowing of the LEFT subarticular recess 5. Mild RIGHT L4-5 and RIGHT L5-S1 foraminal narrowing. 6. No significant central canal stenosis. 7. Moderate facet arthropathy L3-L5.
== END 2024-04-03 08:25 | disposition home or self-care (01) ==
PROVIDERS: PCP Nurse Practitioner Family; Visit Provider Anesthesiology Pain Medicine
DX: M99.63 Osseous and subluxation stenosis of intervertebral foramina of lumbar region (principal); M43.26 Fusion of spine, lumbar region; M47.896 Other spondylosis, lumbar region; M47.898 Other spondylosis, sacral and sacrococcygeal region
CPT/HCPCS: 72148

== ENCOUNTER 2024-07-04 09:58 | Inpatient (IN) | payer MEDICARE, MEDICAID, SELFPAY ==
[2024-07-04] VITALS (58 sets, daily range): BP systolic 153–208; BP diastolic 91–120; PULSE 62–87; RESP 14–31; TEMP 36.6–36.9; O2SAT 95–100; BMI 34.2
--- NOTE | 2024-07-04 10:23 | XRR_ITS ---
PROCEDURE INFORMATION: Exam: XR Chest Exam date and time: 07/04/2024 10:26 AM Age: 54 years old Clinical indication: Cough and dyspnea and shortness of breath; Additional info: Dyspnea/cough TECHNIQUE: Imaging protocol: Radiologic exam of the chest. Views: 1 view. COMPARISON: [place] [id number] 09/06/2018 10:52 AM FINDINGS: Lungs: Unremarkable. No consolidation. Pleural spaces: Unremarkable. No pleural effusion. No pneumothorax. Heart/Mediastinum: Heart is enlarged. Mediastinal contours are normal. Bones/joints: Unremarkable. XR/XR chest 1V portable [id number] IMPRESSION: 1. Cardiomegaly.
[2024-07-04 10:31] LABS: Basophils # 0.1 10^3/uL (0.0-0.1); Basophils % 1.2 %; Eosinophils # 0.2 10^3/uL (0.0-0.8); Eosinophils % 2.1 %; Hematocrit 33.7 % (37-53); Lymphocytes # 0.9 10^3/uL (0.8-4.8); Lymphocytes % 12.4 %; Mean Corpuscular HGB Conc 33.8 g/dL (30-55); Mean Corpuscular Hemoglobin 27.3 pg (27-33); Mean Corpuscular Volume 80.8 fl (82-101); Mean Platelet Volume 10.2 fL (7.4-10.4); Monocytes # 0.4 10^3/uL (0.2-0.9); Monocytes % 5.2 %; Neutrophils # 5.91 10^3/uL (1.8-7.7); Nucleated Red Blood Cells % 0 %; Platelet Count 192 10^3/cmm (157-399); Red Blood Count 4.17 10^6/uL (3.85-5.65); Red Cell Distribution Width 13.4 % (12.1-15.1); White Blood Count 7.49 10^3/uL (3.29-11.43)
[2024-07-04 10:48] LABS: Ketone (Acetest) Serum Negative (Negative)
[2024-07-04 10:57] LABS: Alanine Aminotransferase 11 U/L (0-41); Albumin Level 3.5 g/dL (3.5-5.2); Alkaline Phosphatase 72 U/L (40-130); Aspartate Amino Transferase 17 U/L (0-40); Blood Urea Nitrogen 49 mg/dL (6-20); Calcium 7.3 mg/dL (8.5-10.5); Carbon Dioxide 23 mmol/L (22-29); Chloride 98 mmol/L (98-107); Creatine Phosphokinase 174 U/L (39-308); Creatinine Clr Calc Pharmacy 17.8411; Globulin 2.2 g/dL (1.3-4.6); Glomerular Filtration Rate 8.4 mL/min (90-130); Glucose 192 mg/dL (65-115); Magnesium 1.8 mg/dL (1.7-2.3); Osmolality Calculated 300 mOsm/kg (285-295); Sodium 136 mmol/L (136-145); Total Bilirubin 0.3 mg/dL (0.15-1.2); Total Protein 5.7 g/dL (6.6-8.7)
--- NOTE | 2024-07-04 12:36 | ED_ITS ---
HPI - Recheck/Abnormal Lab/Rx 2 General: Chief Complaint: Recheck/Abnormal Lab/Rx Stated Complaint: emergency dialysis doctor sent Time Seen by Provider: 07/04/24 10:07 History of Present Illness: 54-year-old male presents emergency room referred here by his primary care doctor after persistent abnormal test. He has had a problem with chronic kidney disease and in 2015 he did require dialysis has not been requiring it recently but his creatinine has been elevating. Potassium is not significantly elevated he has labs from his primary care doctor who directed him here Related Data Home Medications Medication Instructions Recorded Confirmed albuterol sulfate 90 mcg/actuation 2 puff inhalation Q6H PRN sob 11/07/20 07/04/24 aerosol inhaler (Ventolin HFA) atorvastatin 40 mg tablet 40 mg PO DAILY 11/07/20 07/04/24 cetirizine 10 mg tablet 10 mg PO DAILY 11/07/20 07/04/24 diltiazem HCl 240 mg 240 mg PO DAILY 11/07/20 07/04/24 capsule,extended release 24 hr (Cartia XT) fluticasone furoate 50 1 inh inhalation BID 11/07/20 07/04/24 mcg/actuation blister powder for inhalation insulin aspart U-100 100 unit/mL 100 unit SUBCUT DAILY PRN blood 11/07/20 07/04/24 (3 mL) subcutaneous pen (Novolog sugar FlexPen U-100 Insulin aspart) insulin glargine U-300 conc 300 60 unit SUBCUT BID 11/07/20 07/04/24 unit/mL (3 mL) subcutaneous pen (Toujeo Max U-300 SoloStar) oxycodone 10 mg tablet 10 mg PO Q6H PRN Pain 11/07/20 07/04/24 tamsulosin 0.4 mg capsule (Flomax) 0.4 mg PO DAILY 11/07/20 07/04/24 aspirin 81 mg tablet,delayed 81 mg PO DAILY 02/03/21 07/04/24 release cyclobenzaprine 10 mg tablet 10 mg PO TID 05/29/21 07/04/24 metoprolol tartrate 75 mg tablet 75 mg PO TID 05/29/21 07/04/24 multivitamin 1 tab PO DAILY 05/29/21 07/04/24 pregabalin 100 mg capsule (Lyrica) 100 mg PO TID 05/29/21 07/04/24 captopril 25 mg tablet 25 mg PO TID 03/22/23 07/04/24 dapagliflozin propanediol 5 mg 5 mg PO DAILY 03/22/23 07/04/24 tablet (Farxiga) terazosin 1 mg capsule 1 mg PO DAILY 07/06/23 07/04/24 testosterone cypionate 100 mg/mL 100 mg SUBCUT Q7D 01/04/24 07/04/24 intramuscular oil Previous Rx's Medication Instructions Recorded ondansetron HCl 4 mg tablet 4 mg PO Q6H PRN nausea and 07/17/21 (Zofran) vomiting #30 tabs pantoprazole 40 mg tablet,delayed 40 mg PO DAILY POST GASTRIC SLEEVE 07/17/21 release (Protonix) 30 days #30 tabs brexpiprazole 2 mg tablet (Rexulti) 2 mg PO DAILY #30 tabs 04/06/24 duloxetine 60 mg capsule,delayed 120 mg (2 x 60 mg) PO DAILY #60 04/06/24 release caps sertraline 100 mg tablet (Zoloft) 200 mg (2 x 100 mg) PO DAILY #60 04/06/24 tabs trazodone 100 mg tablet 400 mg (4 x 100 mg) PO .HS PRN 04/06/24 insomnia #120 tabs Allergies Allergy/AdvReac Type Severity Reaction Status Date / Time diphenhydramine Allergy Unknown Unknown Verified 01/04/24 09:36 [From Benadryl] ertapenem [From Invanz] Allergy Unknown Unknown Verified 01/04/24 09:36 Review of Systems 2 Const: Denies: fever(s) or chills Card: Denies: chest pain Resp: Denies: dyspnea GI: Denies: abdominal pain : Denies: dysuria, urinary frequency or urinary urgency Musc: Denies: neck pain or back pain Skin/Breast: Denies: rash PFSH ED 2 PFSH: Medical History Psychiatric care GERD (gastroesophageal reflux disease) Chronic kidney disease Hypertension Hyperlipidemia Diabetes Morbid obesity Bereavement Chronic major depressive disorder Colon polyp Encounter for screening colonoscopy Surgical History History of colonoscopy with polypectomy History of tonsillectomy History of foot surgery History of shoulder surgery Family History Denies family history of Anesthesia complication Bleeding disorder Social History Smoking and tobacco/nicotine status: current every day tobacco/nicotine user smokeless tobacco Smokeless tobacco user: snuff Smokeless tobacco details: One can/day. Chewed for 30 or 40 yrs. Quit status (tobacco/nicotine): has tried quititng Number of times tried to quit tobacco: 3 Second hand smoke exposure: Yes (Occ.) Alcohol intake: current Alcohol intake frequency: holidays/special occasions only Alcohol type: beer Substance/Drug Use: current Substance/Drug use frequency: few times a week Other substance/drug use details: A few times a week. Physical Exam 2 Const: COMMON NORMALS: no acute distress GENERAL APPEARANCE: cooperative and comfortable ORIENTATION/CONSCIOUSNESS: Yes awake, Yes oriented to person, Yes oriented to place and Yes oriented to time HENMT: COMMON NORMALS: normocephalic, atraumatic and hearing grossly normal bilaterally HEAD & SCALP: normocephalic and atraumatic Resp: COMMON NORMALS: normal respiratory effort, No retractions, No use of accessory muscles and clear to auscultation bilaterally AUSCULTATION: clear to auscultation bilaterally Cardio: COMMON NORMALS: regular rate, regular rhythm and No murmurs present (Cardio) RATE: regular rate RHYTHM: regular rhythm GI: COMMON NORMALS: Soft to palpation and No hepatosplenomegaly present A USCULTATION: Yes normoactive bowel sounds PALPATION: Yes Soft to palpation, No Tenderness to palpation present (GI), No Guarding due to palpation present (GI) and Yes No hepatosplenomegaly present Extremity: COMMON NORMALS: normal to inspection, capillary refill normal, no clubbing, cyanosis or edema, no calf tenderness and no pedal edema Neuro: SENSORIUM/ORIENTATION: Yes oriented to person, Yes oriented to place and Yes oriented to time Skin: COMMON NORMALS: no rashes or lesions noted GENERAL SKIN EXAM: no rashes or lesions noted Course 2 Vital Signs: Vital signs: Vital Signs Temperature 97.9 F 07/04/24 10:10 Pulse Rate 62 07/04/24 14:00 Respiratory Rate 19 H 07/04/24 10:30 Blood Pressure 200/113 07/04/24 14:00 Pulse Oximetry 96 07/04/24 14:00 Oxygen Delivery Me thod Room Air 07/04/24 10:10 MDM - Recheck/Abnormal Lab/Rx Medical Decision Making Patient does have acute on chronic kidney injury. We did get old labs earlier this year he was 3.4 now is at 6.9 is not developing hyperkalemia his anion gap is normal but his BUN is markedly elevated. I discussed Dr. King nephrology she recommends IV fluids and reevaluate suspect she likely will need dialysis but wants to see his response to fluids first. Will admit to Dr. Demarco. Medical Records I reviewed the patient's medical records. Lab Data I reviewed the patient's lab results. 07/04/24 10:17 07/04/24 10:17 Radiology Impressions Chest X-Ray 07/04/24 10:23 IMPRESSION: 1. Cardiomegaly. Laboratory Results WBC 7.49 10^3/uL (3.29-11.43) 07/04/24 10:17 RBC 4.17 10^6/uL (3.85-5.65) 07/04/24 10:17 Hgb 11.40 g/dL (11.27-16.99) 07/04/24 10:17 Hct 33.7 % (37-53) L 07/04/24 10:17 MCV 80.8 fl (82-101) L 07/04/24 10:17 MCH 27.3 pg (27-33) 07/04/24 10:17 MCHC 33.8 g/dL (30-55) 07/04/24 10:17 RDW 13.4 % (12.1-15.1) 07/04/24 10:17 Plt Count 192 10^3/cmm (157-399) 07/04/24 10:17 MPV 10.2 fL (7.4-10.4) 07/04/24 10:17 Neut % (Auto) 79.0 % 07/04/24 10:17 Lymph % (Auto) 12.4 % 07/04/24 10:17 Crawford % (Auto) 5.2 % 07/04/24 10:17 Eos % (Auto) 2.1 % 07/04/24 10:17 Baso % (Auto) 1.2 % 07/04/24 10:17 Neut # (Auto) 5.91 10^3/uL (1.8-7.7) 07/04/24 10:17 Lymph # (Auto) 0.9 10^3/uL (0.8-4.8) 07/04/24 10:17 Crawford # (Auto) 0.4 10^3/uL (0.2-0.9) 07/04/24 10:17 Eos # (Auto) 0.2 10^3/uL (0.0-0.8) 07/04/24 10:17 Baso # (Auto) 0.1 10^3/uL (0.0-0.1) 07/04/24 10:17 Nucleated RBC % (auto) 0 % 07/04/24 10:17 Nucleated RBCs # 0.0 /100WBC 07/04/24 10:17 Sodium 136 mmol/L (136-145) 07/04/24 10:17 Potassium 3.0 mmol/L (3.5-5.1) L 07/04/24 10:17 Chloride 98 mmol/L (98-107) 07/04/24 10:17 Carbon Dioxide 23 mmol/L (22-29) 07/04/24 10:17 Anion Gap 18.0 (5-19) 07/04/24 10:17 BUN 49 mg/dL (6-20) H 07/04/24 10:17 Creatinine 6.9 mg/dL (0.7-1.2) H* 07/04/24 10:17 GFR Calculation 8.4 mL/min (90-130) L 07/04/24 10:17 Glucose 192 mg/dL (65-115) H 07/04/24 10:17 Calculated Osmolality 300 mOsm/kg (285-295) H 07/04/24 10:17 Calcium 7.3 mg/dL (8.5-10.5) L 07/04/24 10:17 Magnesium 1.8 mg/dL (1.7-2.3) 07/04/24 10:17 Total Bilirubin 0.3 mg/dL (0.15-1.2) 07/04/24 10:17 AST 17 U/L (0-40) 07/04/24 10:17 ALT 11 U/L (0-41) 07/04/24 10:17 Alkaline Phosphatase 72 U/L (40-130) 07/04/24 10:17 Creatine Kinase 174 U/L (39-308) 07/04/24 10:17 Total Protein 5.7 g/dL (6.6-8.7) L 07/04/24 10:17 Albumin 3.5 g/dL (3.5-5.2) 07/04/24 10:17 Globulin 2.2 g/dL (1.3-4.6) 07/04/24 10:17 Serum Ketones Negative (Negative) 07/04/24 10:17 All radiology interpretation(s) finalized by discharge Discharge Plan Discharge Patient Disposition: Admitted As Inpatient Admit Provider: Yaneth Demarco Clinical Impression: Acute kidney injury superimposed on chronic kidney disease, Hypertension, Diabetes mellitus Condition: Stable Coding Level of Care Code ED 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
[2024-07-04] MEDS: sodium chloride 0.9% 1,000 ML 999 ML IV (13:43)
--- NOTE | 2024-07-04 14:38 | PM.HP ---
Providers/Chief Complaint Admitting Physician: Yaneth Demarco MD Primary Care Provider: ALONDRA Caldera Chief Complaint: emergency dialysis doctor sent History of Present Illness Abimael Cochran is a 54 year old male with past medical history of uncontrolled hypertension, hyperlipidemia, major depressive disorder, generalized anxiety disorder, chronic low back pain, type 2 diabetes mellitus was referred by primary care physician for abnormal labs. He was found to have a creatinine of 6.9. He has been following up with nephrology as outpatient, last follow-up was 6 months ago. He has scheduled appointment after 1 week with nephrology for possible kidney biopsy. He denies any complaint of fever, chest pain, palpitations, dizziness, shortness of breath, urinary or bowel complaints. He has history of brief dialysis in 2015. Nephrology consulted in ER. As per the ER physician plan for for IV fluids and hydration for now. Nephrology to plan for HD catheter and dialysis later today. He is found to have acute on chronic kidney injury. As per his labs earlier this year he had creatinine of 3.4 and now with 6.9. Review of Systems General: Reports: 10 or more systems reviewed and unremarkable except in HPI and below Medications/Allergies Home Medications Medication Instructions Recorded Confirmed Last Taken Type albuterol sulfate 90 mcg/actuation 2 puff inhalation Q6H PRN sob 11/07/20 07/04/24 07/13/21 History aerosol inhaler (Ventolin HFA) atorvastatin 40 mg tablet 40 mg PO DAILY 11/07/20 07/04/24 07/04/24 09:00 History cetirizine 10 mg tablet 10 mg PO DAILY 11/07/20 07/04/24 07/04/24 09:00 History diltiazem HCl 240 mg 240 mg PO DAILY 11/07/20 07/04/24 07/04/24 09:00 History capsule,extended release 24 hr (Cartia XT) fluticasone furoate 50 1 inh inhalation BID 11/07/20 07/04/24 07/11/21 History mcg/actuation blister powder for inhalation insulin aspart U-100 100 unit/mL 100 unit SUBCUT DAILY PRN blood 11/07/20 07/04/24 07/09/21 History (3 mL) subcutaneous pen (Novolog sugar FlexPen U-100 Insulin aspart) insulin glargine U-300 conc 300 60 unit SUBCUT BID 11/07/20 07/04/24 07/04/24 09:00 History unit/mL (3 mL) subcutaneous pen (Toujeo Max U-300 SoloStar) oxycodone 10 mg tablet 10 mg PO Q6H PRN Pain 11/07/20 07/04/24 07/04/24 09:00 History tamsulosin 0.4 mg capsule (Flomax) 0.4 mg PO DAILY 11/07/20 07/04/24 07/04/24 History aspirin 81 mg tablet,delayed 81 mg PO DAILY 02/03/21 07/04/24 07/03/24 History release cyclobenzaprine 10 mg tablet 10 mg PO TID 05/29/21 07/04/24 07/04/24 09:00 History metoprolol tartrate 75 mg tablet 75 mg PO TID 05/29/21 07/04/24 07/04/24 09:00 History multivitamin 1 tab PO DAILY 05/29/21 07/04/24 07/04/24 History pregabalin 100 mg capsule (Lyrica) 100 mg PO TID 05/29/21 07/04/24 07/04/24 09:00 History ondansetron HCl 4 mg tablet 4 mg PO Q6H PRN nausea and 07/17/21 07/04/24 07/04/24 Rx (Zofran) vomiting #30 tabs pantoprazole 40 mg tablet,delayed 40 mg PO DAILY POST GASTRIC SLEEVE 07/17/21 07/04/24 07/04/24 09:00 Rx release (Protonix) 30 days #30 tabs captopril 25 mg tablet 25 mg PO TID 03/22/23 07/04/24 07/04/24 09:00 History dapagliflozin propanediol 5 mg 5 mg PO DAILY 03/22/23 07/04/24 07/04/24 09:00 History tablet (Farxiga) terazosin 1 mg capsule 1 mg PO DAILY 07/06/23 07/04/24 07/04/24 09:00 History testosterone cypionate 100 mg/mL 100 mg SUBCUT Q7D 01/04/24 07/04/24 Unknown History intramuscular oil brexpiprazole 2 mg tablet (Rexulti) 2 mg PO DAILY #30 tabs 04/06/24 07/04/24 07/04/24 Rx duloxetine 60 mg capsule,delayed 120 mg (2 x 60 mg) PO DAILY #60 04/06/24 07/04/24 07/04/24 Rx release caps sertraline 100 mg tablet (Zoloft) 200 mg (2 x 100 mg) PO DAILY #60 04/06/24 07/04/24 07/04/24 Rx tabs trazodone 100 mg tablet 400 mg (4 x 100 mg) PO .HS PRN 04/06/24 07/04/24 07/03/24 Rx insomnia #120 tabs Allergies Allergy/AdvReac Type Severity Reaction Status Date / Time diphenhydramine Allergy Unknown Unknown Verified 01/04/24 09:36 [From Benadryl] ertapenem [From Invanz] Allergy Unknown Unknown Verified 01/04/24 09:36 PFSH Acute PFSH: Medical History (Updated 07/04/24 @ 14:46 by Yaneth Demarco MD) Psychiatric care GERD (gastroesophageal reflux disease) Chronic kidney disease Hypertension Hyperlipidemia Diabetes Morbid obesity Bereavement Chronic major depressive disorder Colon polyp Encounter for screening colonoscopy Surgical History History of colonoscopy with polypectomy History of tonsillectomy History of foot surgery History of shoulder surgery Family History Denies family history of Anesthesia complication Bleeding disorder Social History Smoking and tobacco/nicotine status: current every day tobacco/nicotine user smokeless tobacco Smokeless tobacco user: snuff Smokeless tobacco details: One can/day. Chewed for 30 or 40 yrs. Quit status (tobacco/nicotine): has tried quititng Number of times tried to quit tobacco: 3 Second hand smoke exposure: Yes (Occ.) Alcohol intake: current Alcohol intake frequency: holidays/special occasions only Alcohol type: beer Substance/Drug Use: current Substance/Drug use frequency: few times a week Other substance/drug use details: A few times a week. Vitals/I&O/Wt Last Vital Signs Temp 97.9 F 07/04/24 10:10 Pulse 62 07/04/24 14:00 Resp 19 H 07/04/24 10:30 BP 200/113 07/04/24 14:00 Pulse Ox 96 07/04/24 14:00 O2 Del Method Room Air 07/04/24 10:10 Weight last 48 hrs Weight 127.459 kg Physical Exam Narrative: He is alert awake oriented x 3, obese, not in acute distress but seems highly anxious. Chest clear to auscultation bilaterally Cardiovascular normal heart sounds Abdomen NAD Extremities no edema noted bilateral lower extremity Data 07/04/24 10:17 07/04/24 10:17 A&P Assessment and plan (1) Acute kidney injury superimposed on chronic kidney disease: (2) Diabetes mellitus: (3) Hypertension: (4) Peripheral neuropathy: (5) Morbid obesity: (6) Generalized anxiety disorder: (7) Major depressive disorder, recurrent severe without psychotic features: (8) GERD (gastroesophageal reflux disease): Plan Abimael Cochran is a 54 year old male with past medical history of uncontrolled hypertension, hyperlipidemia, major depressive disorder, generalized anxiety disorder, chronic low back pain, type 2 diabetes mellitus was referred by primary care physician for abnormal labs and found to have creatinine of 6.9, potassium of 3.0, BUN 49. Admit to [facility] Acute on chronic kidney disease- Nephrology consulted in ED Plan for hydration with IV fluids at 125cc/hr Follow up nephrology for further recommendations. Follow-up renal ultrasound Uncontrolled hypertension-systolic blood pressure in high 190s Also has component of anxiety, hence will do Xanax 0.5 mg 3 times daily as needed Captopril, diltiazem and metoprolol on hold secondary to Tommie Continue Coreg 12.5 mg twice daily, hydralazine 50 mg 3 times daily and nifedipine ER 30 mg daily as per nephrology. Monitor for now. 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 for now for possible HD catheter later today. Attestations Medical Necessity Statement*: He needs continued hospitalization for management and monitoring of acute on chronic kidney disease and uncontrolled hypertension Time Spent in Patient Care: 40 minutes Coding Level of Care Code Acute Code for Chg Fwd Diagnoses Acute kidney injury superimposed on chronic kidney disease N17.9; N18.9 Diabetes mellitus E11.9 Hypertension I10 Peripheral neuropathy G62.9 Morbid obesity E66.01 Generalized anxiety disorder F41.1 Major depressive disorder, recurrent severe without psychotic features F33.2 GERD (gastroesophageal reflux disease) K21.9 Time Spent (min) 40
--- NOTE | 2024-07-04 14:45 | US_ITS ---
WS: [id number] ULTRASOUND RENAL TECHNIQUE: Ultrasound examination of both kidneys. CLINICAL INFORMATION: MIRANDA COMPARISON: CT 2018 FINDINGS: RIGHT: Right kidney is normal in size and appearance. Echogenicity: Normal. Cortical thickness: 2.0 cm; Normal. Hydronephrosis: None. Perinephric fluid: None. Right kidney measures: 11.2 cm x 6.2 cm x 6.1 cm. LEFT: Left kidney is normal in size and appearance. Echogenicity: Normal. Cortical thickness: 2.1 cm; Normal. Hydronephrosis: None. Perinephric fluid: None. Left kidney measures: 11.3 cm x 4.9 cm x 5.5 cm. Normal visualized aorta. Normal bladder. US/US renal BI* [id number] IMPRESSION: 1. No hydronephrosis in either kidney. 2. Normal-appearing bladder. 3. No other acute findings.
--- NOTE | 2024-07-04 14:46 | P.CONIM_ITS ---
Providers/Reason For Consult 2 Consulting Physician/Specialty*: kommana/ nEPHROLOGY Reason for Consult*: aCUTE ON ckd Attending Physician: Yaneth Demarco MD Primary Care Provider: ALONDRA Caldera History of Present Illness History of Present Illness Abimael Cochran is a 54 year old male 54-year-old male with past medical history of poorly controlled hypertension, dyslipidemia, depression, chronic kidney disease followed by nephrology as outpatient, was sent to the emergency department due to abnormal labs. No no recent labs available. Patient reports that he a follows with nephrology was last seen them about 6 months ago, at that time patient was recommended to have kidney biopsy but due to high blood pressures biopsy was not performed. Earlier this year creatinine was around 3.4. In the ER his blood pressures were elevated up to 200s, on room air, lab data was significant for potassium of 3.0 and creatinine was 6.9. Patient reports poor p.o. intake and nausea. Review of Systems 2 Narrative: Other review of systems negative Medications/Allergies Home Medications Medication Instructions Recorded Confirmed Last Taken Type albuterol sulfate 90 mcg/actuation 2 puff inhalation Q6H PRN sob 11/07/20 07/04/24 07/13/21 History aerosol inhaler (Ventolin HFA) atorvastatin 40 mg tablet 40 mg PO DAILY 11/07/20 07/04/24 07/04/24 09:00 History cetirizine 10 mg tablet 10 mg PO DAILY 11/07/20 07/04/24 07/04/24 09:00 History diltiazem HCl 240 mg 240 mg PO DAILY 11/07/20 07/04/24 07/04/24 09:00 History capsule,extended release 24 hr (Cartia XT) fluticasone furoate 50 1 inh inhalation BID 11/07/20 07/04/24 07/11/21 History mcg/actuation blister powder for inhalation insulin aspart U-100 100 unit/mL 100 unit SUBCUT DAILY PRN blood 11/07/20 07/04/24 07/09/21 History (3 mL) subcutaneous pen (Novolog sugar FlexPen U-100 Insulin aspart) insulin glargine U-300 conc 300 60 unit SUBCUT BID 11/07/20 07/04/24 07/04/24 09:00 History unit/mL (3 mL) subcutaneous pen (Toujeo Max U-300 SoloStar) oxycodone 10 mg tablet 10 mg PO Q6H PRN Pain 11/07/20 07/04/24 07/04/24 09:00 History tamsulosin 0.4 mg capsule (Flomax) 0.4 mg PO DAILY 11/07/20 07/04/24 07/04/24 History aspirin 81 mg tablet,delayed 81 mg PO DAILY 02/03/21 07/04/24 07/03/24 History release cyclobenzaprine 10 mg tablet 10 mg PO TID 05/29/21 07/04/24 07/04/24 09:00 History metoprolol tartrate 75 mg tablet 75 mg PO TID 05/29/21 07/04/24 07/04/24 09:00 History multivitamin 1 tab PO DAILY 05/29/21 07/04/24 07/04/24 History pregabalin 100 mg capsule (Lyrica) 100 mg PO TID 05/29/21 07/04/24 07/04/24 09:00 History ondansetron HCl 4 mg tablet 4 mg PO Q6H PRN nausea and 07/17/21 07/04/24 07/04/24 Rx (Zofran) vomiting #30 tabs pantoprazole 40 mg tablet,delayed 40 mg PO DAILY POST GASTRIC SLEEVE 07/17/21 07/04/24 07/04/24 09:00 Rx release (Protonix) 30 days #30 tabs captopril 25 mg tablet 25 mg PO TID 03/22/23 07/04/24 07/04/24 09:00 History dapagliflozin propanediol 5 mg 5 mg PO DAILY 03/22/23 07/04/24 07/04/24 09:00 History tablet (Farxiga) terazosin 1 mg capsule 1 mg PO DAILY 07/06/23 07/04/24 07/04/24 09:00 History testosterone cypionate 100 mg/mL 100 mg SUBCUT Q7D 01/04/24 07/04/24 Unknown History intramuscular oil brexpiprazole 2 mg tablet (Rexulti) 2 mg PO DAILY #30 tabs 04/06/24 07/04/24 07/04/24 Rx duloxetine 60 mg capsule,delayed 120 mg (2 x 60 mg) PO DAILY #60 04/06/24 07/04/24 07/04/24 Rx release caps sertraline 100 mg tablet (Zoloft) 200 mg (2 x 100 mg) PO DAILY #60 04/06/24 07/04/24 07/04/24 Rx tabs trazodone 100 mg tablet 400 mg (4 x 100 mg) PO .HS PRN 04/06/24 07/04/24 07/03/24 Rx insomnia #120 tabs Allergies Allergy/AdvReac Type Severity Reaction Status Date / Time diphenhydramine Allergy Unknown Unknown Verified 01/04/24 09:36 [From Benadryl] ertapenem [From Invanz] Allergy Unknown Unknown Verified 01/04/24 09:36 PFSH Acute 2 PFSH: Medical History (Updated 07/04/24 @ 14:46 by Yaneth Demarco MD) Psychiatric care GERD (gastroesophageal reflux disease) Chronic kidney disease Hypertension Hyperlipidemia Diabetes Morbid obesity Bereavement Chronic major depressive disorder Colon polyp Encounter for screening colonoscopy Surgical History History of colonoscopy with polypectomy History of tonsillectomy History of foot surgery History of shoulder surgery Family History Denies family history of Anesthesia complication Bleeding disorder Social History Smoking and tobacco/nicotine status: current every day tobacco/nicotine user smokeless tobacco Smokeless tobacco user: snuff Smokeless tobacco details: One can/day. Chewed for 30 or 40 yrs. Quit status (tobacco/nicotine): has tried quititng Number of times tried to quit tobacco: 3 Second hand smoke exposure: Yes (Occ.) Alcohol intake: current Alcohol intake frequency: holidays/special occasions only Alcohol type: beer Substance/Drug Use: current Substance/Drug use frequency: few times a week Other substance/drug use details: A few times a week. Vitals/I&O/Wt Last Vital Signs Temp 97.9 F 07/04/24 10:10 Pulse 62 07/04/24 14:00 Resp 19 H 07/04/24 10:30 BP 200/113 07/04/24 14:00 Pulse Ox 96 07/04/24 14:00 O2 Del Method Room Air 07/04/24 10:10 Weight last 48 hrs Weight 127.459 kg Physical Exam 2 Narrative: Patient is awake alert, no distress and on room air HEENT S1-S2 regular rate and rhythm per report Lungs clear per report has pedal edema Data 07/04/24 10:17 07/04/24 10:17 A&P Assessment and plan (1) Acute kidney injury superimposed on chronic kidney disease: 1. Acute on chronic kidney disease: Last creatinine known was October and creatinine was 3.4. I suspect patient has progression of CKD due to poorly controlled hypertension but may have a component of MIRANDA as well., Will give gentle IV fluids tonight and if no improvement in renal function, will likely benefit from initiation of HD ,will discussed with patient. Will also order UA urine protein to creatinine ratio, other serologies, -Once blood pressures are optimized could consider renal biopsy-can be done as outpatient . 2. Hypertension: Poorly controlled, started on Coreg nifedipine and hydralazine 3. Hypokalemia: Monitor, repleted 4. History of diabetes Patient evaluated using audiovisual cart. Time spent 40 minutes. Consult Attestations 2 Medical Necessity Statement: per mediicne team Coding Level of Care Code Acute Code for Chg Fwd Diagnoses Acute kidney injury superimposed on chronic kidney disease N17.9; N18.9
[2024-07-04] MEDS: pregabalin 100 mg Capsule PO ×2 (15:40→21:17)
[2024-07-04] MEDS: famotidine 20 mg/2 mL INJ IVP (15:40)
[2024-07-04] MEDS: hyDRALAzine 50 mg Tablet PO ×2 (15:40→21:17)
[2024-07-04] MEDS: sodium chloride 0.9% 1,000 ML 125 ML IV (15:41)
[2024-07-04 16:15] LABS: Bilirubin Urine Negative (Negative); Blood Urine 1+ (Negative); Glucose Urine UA 3+ (Normal); Ketones Urine Negative (Negative); Leukocyte Esterase Urine Negative (Negative); Nitrate Urine Negative (Negative); Protein Urine 4+ (Negative); Specific Gravity, Urine 1.014 (1.005-1.030); Urine Appearance Clear (CLEAR); Urine Color Yellow (Yellow); Urobilinogen Urine 0.2 mg/dL (Negative); pH Urine 6.5 (5-7)
[2024-07-04 16:17] LABS: Add Urine Microscopic? YES; Bacteria Urine None Seen /hpf; Hyaline Casts Urine 2.05 /lpf; RBC Urine 0-2 /hpf (0-2); Squamous Epithelial Cell Urine 0-5 /hpf (0-5); WBC Urine 0-5 /hpf (0-5)
[2024-07-04] MEDS: hyDRALAzine 20 mg/mL INJ 1 mL 10 MG IVP ×2 (16:31→18:33)
[2024-07-04] MEDS: ALPRAZolam 0.5 mg Tablet PO (16:31)
[2024-07-04 16:51] LABS: Creatinine Urine, Random 47 mg/dL (39-259)
[2024-07-04 16:56] LABS: Urine Random Sodium 41 mmol/L
--- NOTE | 2024-07-04 17:00 | PC.NURSE ---
Physician orders: Potassium 40MEQ q6h x2
[2024-07-04 17:07] LABS: Urine Protein Random 565 mg/dL
[2024-07-04 17:22] LABS: Glucose Point of Care 108 mg/dL (70-110)
[2024-07-04] MEDS: potassium chloride ER 20 mEq Tablet 40 MEQ PO ×2 (18:11→23:46)
[2024-07-04] MEDS: carvedilol 12.5 mg Tablet PO (18:11)
[2024-07-04] MEDS: NIFEdipine ER (24 hr) 30 mg Tablet PO (18:33)
[2024-07-04 19:16] LABS: Anion Gap 16.8 (5-19); Blood Urea Nitrogen 49 mg/dL (6-20); Calcium 7.2 mg/dL (8.5-10.5); Carbon Dioxide 22 mmol/L (22-29); Chloride 101 mmol/L (98-107); Creatinine Clr Calc Pharmacy 18.6521; Glomerular Filtration Rate 8.8 mL/min (90-130); Glucose 116 mg/dL (65-115); Osmolality Calculated 298 mOsm/kg (285-295); Sodium 137 mmol/L (136-145)
[2024-07-04 19:21] LABS: Potassium 2.8 mmol/L (3.5-5.1)
[2024-07-04] MEDS: insulin glargine 100 units/1 mL 40 UNIT SUBCUT (20:06)
[2024-07-04 20:58] LABS: Complement C3 100 mg/dL (90-180)
[2024-07-04 22:50] LABS: Hepatitis B Surface AB < 3.5 (11.5-1000); Hepatitis B Surface Antigen Non-Reactive (Nonreactive); Hepatitis C Virus Antibody Non-Reactive (Nonreactive)
[2024-07-05] VITALS (9 sets, daily range): BP systolic 147–187; BP diastolic 84–96; PULSE 71–89; RESP 15–25; TEMP 36.4–36.9; O2SAT 93–98; BMI 34.4
[2024-07-05] MEDS: trazodone 100 mg Tablet 400 MG PO ×2 (00:04→20:42)
[2024-07-05 00:34] LABS: Bilirubin Urine Negative (Negative); Blood Urine Trace (Negative); Glucose Urine UA 2+ (Normal); Ketones Urine Negative (Negative); Leukocyte Esterase Urine Negative (Negative); Nitrate Urine Negative (Negative); Protein Urine 3+ (Negative); Specific Gravity, Urine 1.011 (1.005-1.030); Urine Appearance Clear (CLEAR); Urine Color Yellow (Yellow); Urobilinogen Urine 0.2 mg/dL (Negative); pH Urine 6.5 (5-7)
[2024-07-05 00:36] LABS: Add Urine Microscopic? YES; Bacteria Urine None Seen /hpf; Hyaline Casts Urine 0-4 /lpf; RBC Urine 0-2 /hpf (0-2); Squamous Epithelial Cell Urine 0-5 /hpf (0-5); WBC Urine 0-5 /hpf (0-5)
[2024-07-05 00:48] LABS: Creatinine Urine, Random 42 mg/dL (39-259)
[2024-07-05 01:06] LABS: Urine Protein Random 386 mg/dL
[2024-07-05] MEDS: famotidine 20 mg/2 mL INJ IVP ×2 (03:08→13:56)
[2024-07-05 04:18] LABS: Basophils # 0.1 10^3/uL (0.0-0.1); Basophils % 1.2 %; Eosinophils # 0.2 10^3/uL (0.0-0.8); Hematocrit 33.8 % (37-53); Lymphocytes # 0.9 10^3/uL (0.8-4.8); Lymphocytes % 11.7 %; Mean Corpuscular HGB Conc 33.7 g/dL (30-55); Mean Corpuscular Hemoglobin 27.4 pg (27-33); Mean Corpuscular Volume 81.3 fl (82-101); Mean Platelet Volume 10.2 fL (7.4-10.4); Monocytes # 0.4 10^3/uL (0.2-0.9); Monocytes % 5.2 %; Neutrophils % 79.6 %; Nucleated Red Blood Cells % 0 %; Platelet Count 179 10^3/cmm (157-399); Red Blood Count 4.16 10^6/uL (3.85-5.65); Red Cell Distribution Width 13.6 % (12.1-15.1); White Blood Count 7.53 10^3/uL (3.29-11.43)
[2024-07-05 04:40] LABS: Anion Gap 17.3 (5-19); Blood Urea Nitrogen 46 mg/dL (6-20); Calcium 7.6 mg/dL (8.5-10.5); Carbon Dioxide 21 mmol/L (22-29); Chloride 105 mmol/L (98-107); Creatinine Clr Calc Pharmacy 18.3737; Glomerular Filtration Rate 8.7 mL/min (90-130); Glucose 114 mg/dL (65-115); Osmolality Calculated 303 mOsm/kg (285-295); Potassium 3.3 mmol/L (3.5-5.1); Sodium 140 mmol/L (136-145)
[2024-07-05 06:54] LABS: Glucose Point of Care 97 mg/dL (70-110)
[2024-07-05] MEDS: sertraline 100 mg Tablet 200 MG PO (08:42)
[2024-07-05] MEDS: tamsulosin 0.4 mg Capsule PO (08:43)
[2024-07-05] MEDS: potassium chloride ER 20 mEq Tablet 40 MEQ PO ×2 (08:43→13:56)
[2024-07-05] MEDS: duloxetine 60 mg Capsule 120 MG PO (08:43)
[2024-07-05] MEDS: atorvastatin 40 mg Tablet PO (08:44)
[2024-07-05] MEDS: hyDRALAzine 50 mg Tablet PO ×3 (08:44→20:32)
[2024-07-05] MEDS: carvedilol 12.5 mg Tablet PO ×2 (08:44→17:29)
[2024-07-05] MEDS: NIFEdipine ER (24 hr) 30 mg Tablet PO (08:44)
[2024-07-05] MEDS: aspirin 81 mg EC Tablet PO (08:45)
[2024-07-05] MEDS: pregabalin 100 mg Capsule PO ×3 (08:45→20:32)
[2024-07-05] MEDS: insulin glargine 100 units/1 mL 40 UNIT SUBCUT ×2 (08:46→17:30)
[2024-07-05] MEDS: ALPRAZolam 0.5 mg Tablet PO ×2 (08:53→20:32)
[2024-07-05 11:47] LABS: Glucose Point of Care 89 mg/dL (70-110)
--- NOTE | 2024-07-05 13:21 | P.PN_ITS ---
Subjective 2 Subjective: No acute overnight events noted. Seen him at bedside this morning. Denies any new complaints. Blood pressure has been trending down with most recent blood pressure of 147/90. Medications: Reviewed: Yes Vitals/I&O/Wt Last Vital Signs Temp 97.6 F 07/05/24 12:00 Pulse 77 07/05/24 12:00 Resp 16 07/05/24 12:00 BP 147/90 07/05/24 12:00 Pulse Ox 98 07/05/24 12:00 O2 Del Method Room Air 07/05/24 12:00 07/04/24 07/05/24 07/05/24 22:59 06:59 14:59 Intake Total 1240 / 1240 1000 / 2240 Output Total 600 / 600 450 / 1050 Balance 640 / 640 550 / 1190 Weight last 48 hrs Weight 128.367 kg Weight 127.459 kg Weight 127.459 kg Physical Exam 2 Narrative: He is alert awake oriented x 3, obese, not in acute distress but seems highly anxious. Chest clear to auscultation bilaterally Cardiovascular normal heart sounds Abdomen NAD Extremities no edema noted bilateral lower extremity Data 07/05/24 03:50 07/05/24 03:50 A&P Assessment and plan (1) Acute kidney injury superimposed on chronic kidney disease: (2) Diabetes mellitus: (3) Hypertension: (4) Peripheral neuropathy: (5) Morbid obesity: (6) Generalized anxiety disorder: (7) Major depressive disorder, recurrent severe without psychotic features: (8) GERD (gastroesophageal reflux disease): Plan Abimael Cochran is a 54 year old male with past medical history of uncontrolled hypertension, hyperlipidemia, major depressive disorder, generalized anxiety disorder, chronic low back pain, type 2 diabetes mellitus was referred by primary care physician for abnormal labs and found to have creatinine of 6.9, potassium of 3.0, BUN 49. Admit to CSU Acute on chronic kidney disease- Nephrology consulted in ED Plan for hydration with IV fluids at 125cc/hr Follow up nephrology for further recommendations. Follow-up renal ultrasound Uncontrolled hypertension-systolic blood pressure in high 190s Also has component of anxiety, hence will do Xanax 0.5 mg 3 times daily as needed Captopril, diltiazem and metoprolol on hold secondary to Tommie Continue Coreg 12.5 mg twice daily, hydralazine 50 mg 3 times daily and nifedipine ER 30 mg daily as per nephrology. Monitor for now. Continue aspirin and Lipitor Type 2 diabetes mellitus-will continue with insulin glargine 60 units twice daily Monitor fingersticks 3 times daily with meals and bedtime Major depressive disorder/RODERICK-continue OPERATIONS CLERK Cymbalta, Zoloft, trazodone and Rexulti Chronic low back pain-continue OPERATIONS CLERK pregabalin GI prophylaxis with IV Pepcid DVT prophylaxis with SCD N.p.o. for now for possible HD catheter later today. 07/05-creatinine still 6.7 today. Spoke with nephrology, wants to monitor for 1 more day. In view of normal renal ultrasound, normal potassium levels, patient not uremic, as per nephrology patient can have an outpatient kidney biopsy and further intervention if needed. Blood pressure better controlled on current regimen. Will continue to monitor. Attestations 2 Medical Necessity Statement*: Patient needs continued hospitalization for monitoring of creatinine and further intervention if needed. Awaiting tentative discharge in a.m. Time Spent in Patient Care: 15 minutes Coding Level of Care Code Acute Code for [facility] Fwd Diagnoses Acute kidney injury superimposed on chronic kidney disease N17.9; N18.9 Diabetes mellitus E11.9 Hypertension I10 Peripheral neuropathy G62.9 Morbid obesity E66.01 Generalized anxiety disorder F41.1 Major depressive disorder, recurrent severe without psychotic features F33.2 GERD (gastroesophageal reflux disease) K21.9 Time Spent (min) 15
--- NOTE | 2024-07-05 13:24 | PC.NURSE ---
Patient asked for an update on progress about hemodialysis port placement. I asked the hospitalist and she said that Dr. Hughes wanted to wait and watch him today and to make patient renal dialysis diet. I took a tray into him and told him the news and the patient told me he wants to leave AMA because we aren't doing anything for him . I relayed this information to the doctor, who said she would come see him in 15 min.
--- NOTE | 2024-07-05 18:09 | P.PN_ITS ---
Subjective 2 Subjective: no new c/p BP better controlled Medications: Reviewed: Yes Vitals/I&O/Wt Last Vital Signs Temp 97.7 F 07/05/24 16:00 Pulse 84 07/05/24 16:30 Resp 20 H 07/05/24 16:00 BP 170/94 07/05/24 16:00 Pulse Ox 97 07/05/24 16:00 O2 Del Method Room Air 07/05/24 16:00 07/05/24 07/05/24 07/05/24 06:59 14:59 22:59 Intake Total 1000 / 2240 240 / 240 Output Total 450 / 1050 Balance 550 / 1190 240 / 240 Weight last 48 hrs Weight 128.367 kg Weight 127.459 kg Weight 127.459 kg Physical Exam 2 Narrative: Patient is awake alert, no distress and on room air HEENT S1-S2 regular rate and rhythm per report Lungs clear per report has pedal edema Data 07/05/24 03:50 07/05/24 03:50 A&P Assessment and plan (1) Acute kidney injury superimposed on chronic kidney disease: 1. Acute on chronic kidney disease: Last creatinine known was October and creatinine was 3.4. I suspect patient has progression of CKD due to poorly controlled hypertension but may have a component of MIRANDA as well., getting IV fluidbut no improvement in renal fxn yet . Recheck renal fxn in Am and if Cr remains high , will discuss inititation of HD Will also order UA urine protein to creatinine ratio, other serologies- PENDING -Once blood pressures are optimized could consider renal biopsy-can be done as outpatient . 2. Hypertension: Poorly controlled on presentation , started on Coreg nifedipine and hydralazine- better 3. Hypokalemia: Monitor, repleted 4. History of diabetes Patient evaluated using audiovisual cart. Time spent 40 minutes. Plan per [facility] Attestations 2 Medical Necessity Statement*: per mediicne team Coding Level of Care Code Acute Code for Chg Fwd Diagnoses Acute kidney injury superimposed on chronic kidney disease N17.9; N18.9
[2024-07-06] VITALS (95 sets, daily range): BP systolic 118–198; BP diastolic 63–106; PULSE 65–104; RESP 0–41; TEMP 36.2–36.8; O2SAT 81–100; BMI 34.4
[2024-07-06] MEDS: famotidine 20 mg/2 mL INJ IVP ×2 (03:14→14:35)
[2024-07-06 05:34] LABS: Anion Gap 16.4 (5-19); Blood Urea Nitrogen 47 mg/dL (6-20); Calcium 7.4 mg/dL (8.5-10.5); Carbon Dioxide 21 mmol/L (22-29); Chloride 105 mmol/L (98-107); Glomerular Filtration Rate 7.9 mL/min (90-130); Glucose 65 mg/dL (65-115); Osmolality Calculated 298 mOsm/kg (285-295); Potassium 3.4 mmol/L (3.5-5.1); Sodium 139 mmol/L (136-145)
[2024-07-06] MEDS: dextrose 10% 1,000 ML 30 ML IV (06:18)
[2024-07-06 07:47] LABS: Glucose Point of Care 255 mg/dL (70-110)
[2024-07-06 07:47] LABS: Glucose Point of Care 64 mg/dL (70-110)
[2024-07-06] MEDS: lidocaine 1% 5 ML in potassium chloride premix 100 ML 26.25 ML IV (07:59)
--- NOTE | 2024-07-06 08:03 | PM.PN ---
Subjective Subjective: no new c/o Medications: Reviewed: Yes Vitals/I&O/Wt Last Vital Signs Temp 97.5 F L 07/06/24 07:25 Pulse 97 07/06/24 07:25 Resp 20 H 07/06/24 07:25 BP 179/87 07/06/24 07:25 Pulse Ox 96 07/06/24 07:25 O2 Del Method Room Air 07/06/24 07:25 07/05/24 07/06/24 07/06/24 22:59 06:59 14:59 Intake Total 480 / 480 Output Total 800 / 800 Balance -320 / -320 Weight last 48 hrs Weight 128.367 kg Weight 128.367 kg Weight 127.459 kg Weight 127.459 kg Physical Exam Narrative: Patient is awake alert, no distress and on room air HEENT S1-S2 regular rate and rhythm per report Lungs clear per report has pedal edema Data 07/05/24 03:50 07/06/24 04:37 A&P Assessment and plan (1) Acute kidney injury superimposed on chronic kidney disease: 1. Acute on chronic kidney disease: Last creatinine known was October and creatinine was 3.4. I suspect patient has progression of CKD due to poorly controlled hypertension but may have a component of MIRANDA as well., getting IV fluidbut no improvement in renal fxn yet . Cr remains high , plan for inititation of HD --> pt agreed - recommend tunnelled catheter placement and plan to start HD Will also order UA urine protein to creatinine ratio, other serologies- PENDING -will benefit from renal biopsy-can be done as outpatient . - Also he wants to switch to PD at a later time 2. Hypertension: Poorly controlled on presentation , started on Coreg nifedipine and hydralazine- better 3. Hypokalemia: Monitor, repleted 4. History of diabetes Patient evaluated using audiovisual cart. Time spent 40 minutes. [facility] Attestations Medical Necessity Statement*: per oscar Coding Level of Care Code Acute Code for Chg Fwd Diagnoses Acute kidney injury superimposed on chronic kidney disease N17.9; N18.9
[2024-07-06] MEDS: hyDRALAzine 50 mg Tablet PO ×3 (08:10→20:31)
[2024-07-06] MEDS: tamsulosin 0.4 mg Capsule PO (08:11)
[2024-07-06] MEDS: carvedilol 12.5 mg Tablet PO ×2 (08:11→18:07)
[2024-07-06] MEDS: ALPRAZolam 0.5 mg Tablet PO ×2 (08:11→20:38)
[2024-07-06] MEDS: duloxetine 60 mg Capsule 120 MG PO (08:11)
[2024-07-06] MEDS: NIFEdipine ER (24 hr) 30 mg Tablet PO (08:11)
[2024-07-06] MEDS: pregabalin 100 mg Capsule PO ×3 (08:11→20:31)
[2024-07-06] MEDS: aspirin 81 mg EC Tablet PO (08:11)
[2024-07-06] MEDS: atorvastatin 40 mg Tablet PO (08:11)
[2024-07-06] MEDS: sertraline 100 mg Tablet 200 MG PO (08:12)
--- NOTE | 2024-07-06 09:55 | P.CONIM_ITS ---
Providers/Reason For Consult 2 Consulting Physician/Specialty*: Dr. Jose Garza, DO/General Surgery Reason for Consult*: Acute on chronic kidney disease Attending Physician: Yaneth Demarco MD Primary Care Provider: ALONDRA Caldera History of Present Illness History of Present Illness Abimael Cochran is a 54 year old male who presented to the hospital with acute on chronic kidney disease. He is very somnolent in bed while I am talking to him. Nephrology saw the patient and is requesting a tunneled hemodialysis catheter placement. Patient denies any abdominal pain, nausea, emesis, diarrhea, constipation, hematochezia and/or melena. Review of Systems 2 General: Reports: 10 or more systems reviewed and unremarkable except in HPI and below Medications/Allergies Home Medications Medication Instructions Recorded Confirmed Last Taken Type albuterol sulfate 90 mcg/actuation 2 puff inhalation Q6H PRN sob 11/07/20 07/04/24 07/13/21 History aerosol inhaler (Ventolin HFA) atorvastatin 40 mg tablet 40 mg PO DAILY 11/07/20 07/04/24 07/04/24 09:00 History cetirizine 10 mg tablet 10 mg PO DAILY 11/07/20 07/04/24 07/04/24 09:00 History diltiazem HCl 240 mg 240 mg PO DAILY 11/07/20 07/04/24 07/04/24 09:00 History capsule,extended release 24 hr (Cartia XT) fluticasone furoate 50 1 inh inhalation BID 11/07/20 07/04/24 07/11/21 History mcg/actuation blister powder for inhalation insulin aspart U-100 100 unit/mL 100 unit SUBCUT DAILY PRN blood 11/07/20 07/04/24 07/09/21 History (3 mL) subcutaneous pen (Novolog sugar FlexPen U-100 Insulin aspart) insulin glargine U-300 conc 300 60 unit SUBCUT BID 11/07/20 07/04/24 07/04/24 09:00 History unit/mL (3 mL) subcutaneous pen (Toujeo Max U-300 SoloStar) oxycodone 10 mg tablet 10 mg PO Q6H PRN Pain 11/07/20 07/04/24 07/04/24 09:00 History tamsulosin 0.4 mg capsule (Flomax) 0.4 mg PO DAILY 11/07/20 07/04/24 07/04/24 History aspirin 81 mg tablet,delayed 81 mg PO DAILY 02/03/21 07/04/24 07/03/24 History release cyclobenzaprine 10 mg tablet 10 mg PO TID 05/29/21 07/04/24 07/04/24 09:00 History metoprolol tartrate 75 mg tablet 75 mg PO TID 05/29/21 07/04/24 07/04/24 09:00 History multivitamin 1 tab PO DAILY 05/29/21 07/04/24 07/04/24 History pregabalin 100 mg capsule (Lyrica) 100 mg PO TID 05/29/21 07/04/24 07/04/24 09:00 History ondansetron HCl 4 mg tablet 4 mg PO Q6H PRN nausea and 07/17/21 07/04/24 07/04/24 Rx (Zofran) vomiting #30 tabs pantoprazole 40 mg tablet,delayed 40 mg PO DAILY POST GASTRIC SLEEVE 07/17/21 07/04/24 07/04/24 09:00 Rx release (Protonix) 30 days #30 tabs captopril 25 mg tablet 25 mg PO TID 03/22/23 07/04/24 07/04/24 09:00 History dapagliflozin propanediol 5 mg 5 mg PO DAILY 03/22/23 07/04/24 07/04/24 09:00 History tablet (Farxiga) terazosin 1 mg capsule 1 mg PO DAILY 07/06/23 07/04/24 07/04/24 09:00 History testosterone cypionate 100 mg/mL 100 mg SUBCUT Q7D 01/04/24 07/04/24 Unknown History intramuscular oil brexpiprazole 2 mg tablet (Rexulti) 2 mg PO DAILY #30 tabs 04/06/24 07/04/24 07/04/24 Rx duloxetine 60 mg capsule,delayed 120 mg (2 x 60 mg) PO DAILY #60 04/06/24 07/04/24 07/04/24 Rx release caps sertraline 100 mg tablet (Zoloft) 200 mg (2 x 100 mg) PO DAILY #60 04/06/24 07/04/24 07/04/24 Rx tabs trazodone 100 mg tablet 400 mg (4 x 100 mg) PO .HS PRN 04/06/24 07/04/24 07/03/24 Rx insomnia #120 tabs Allergies Allergy/AdvReac Type Severity Reaction Status Date / Time diphenhydramine Allergy Unknown Unknown Verified 01/04/24 09:36 [From Benadryl] ertapenem [From Invanz] Allergy Unknown Unknown Verified 01/04/24 09:36 Current Medications Generic Name Dose Route Start Last Admin Trade Name Fresarah PRN Reason Stop Dose Admin Alprazolam 0.5 mg 07/04/24 14:19 07/06/24 08:11 Alprazolam 0.5 Mg Tablet PO 0.5 mg TID PRN Administration ANXIETY Aspirin 81 mg 07/05/24 09:00 07/06/24 08:11 Aspirin 81 Mg Ec Tablet PO 81 mg DAILY ISABEL Administration Atorvastatin Calcium 40 mg 07/05/24 09:00 07/06/24 08:11 Atorvastatin 40 Mg Tablet PO 40 mg DAILY ISABEL Administration Carvedilol 12.5 mg 07/04/24 18:00 07/06/24 08:11 Carvedilol 12.5 Mg Tablet PO 12.5 mg BID ISABEL Administration Duloxetine HCl 120 mg 07/05/24 09:00 07/06/24 08:11 Duloxetine 60 Mg Capsule PO 120 mg DAILY ISABEL Administration Famotidine 20 mg 07/04/24 14:15 07/06/24 03:14 Famotidine 20 Mg/2 Ml Inj IVP 20 mg Q12H ISABEL Administration Hydralazine HCl 50 mg 07/04/24 15:00 07/06/24 08:10 Hydralazine 50 Mg Tablet PO 50 mg TID ISABEL Administration Sodium Chloride 1,000 mls @ 125 mls/hr 07/04/24 14:09 07/05/24 15:51 Sodium Chloride 0.9% IV Not Given .Q8H ISABEL Dextrose 1,000 mls @ 30 mls/hr 07/06/24 06:00 07/06/24 06:18 D10w IV 30 mls/hr .Q24H ISABEL Administration Lidocaine HCl 5 ml/ Potassium 105 mls @ 26.25 mls/hr 07/06/24 07:45 07/06/24 07:59 Chloride IV 07/06/24 11:44 26.25 mls/hr ONCE ONE Administration Insulin Glargine 40 unit 07/04/24 18:00 07/05/24 17:30 Insulin Glargine 100 Units/1 Ml SUBCUT 40 unit BID ISABEL Administration Nifedipine 30 mg 07/05/24 09:00 07/06/24 08:11 Nifedipine Er (24 Hr) 30 Mg Tablet PO 30 mg DAILY ISABEL Administration Pregabalin 100 mg 07/04/24 15:00 07/06/24 08:11 Pregabalin 100 Mg Capsule PO 100 mg TID ISABEL Administration Sertraline HCl 200 mg 07/05/24 09:00 07/06/24 08:12 Sertraline 100 Mg Tablet PO 200 mg DAILY ISABEL Administration Tamsulosin HCl 0.4 mg 07/05/24 09:00 07/06/24 08:11 Tamsulosin 0.4 Mg Capsule PO 0.4 mg DAILY ISABEL Administration Terazosin HCl 1 mg 07/05/24 09:00 07/06/24 08:10 Terazosin 1 Mg Capsule PO 1 mg DAILY ISABEL Administration Trazodone HCl 400 mg 07/04/24 14:17 07/05/24 20:42 Trazodone 100 Mg Tablet PO 400 mg BEDTIME PRN Administration insomnia PFSH Acute 2 PFSH: Medical History Psychiatric care GERD (gastroesophageal reflux disease) Chronic kidney disease Hypertension Hyperlipidemia Diabetes Morbid obesity Bereavement Chronic major depressive disorder Colon polyp Encounter for screening colonoscopy Surgical History History of colonoscopy with polypectomy History of tonsillectomy History of foot surgery History of shoulder surgery Family History Denies family history of Anesthesia complication Bleeding disorder Social History Smoking and tobacco/nicotine status: current every day tobacco/nicotine user smokeless tobacco Smokeless tobacco user: snuff Smokeless tobacco details: One can/day. Chewed for 30 or 40 yrs. Quit status (tobacco/nicotine): has tried quititng Number of times tried to quit tobacco: 3 Second hand smoke exposure: Yes (Occ.) Alcohol intake: current Alcohol intake frequency: holidays/special occasions only Alcohol type: beer Substance/Drug Use: current Substance/Drug use frequency: few times a week Other substance/drug use details: A few times a week. Vitals/I&O/Wt Last Vital Signs Temp 97.5 F L 07/06/24 07:25 Pulse 97 07/06/24 07:25 Resp 20 H 07/06/24 07:25 BP 179/87 07/06/24 07:25 Pulse Ox 96 07/06/24 07:25 O2 Del Method Room Air 07/06/24 07:25 07/05/24 07/06/24 07/06/24 22:59 06:59 14:59 Intake Total 480 / 480 Output Total 800 / 800 Balance -320 / -320 Weight last 48 hrs Weight 283 lb Weight 283 lb Weight 281 lb Weight 281 lb Physical Exam 2 Narrative: General : Patient is well developed , no acute distress, somnolent, oriented x3 Head : Normal cephalic, a-traumatic. Ears : Pinnae and external canal are normal. Hearing is normal. Eyes : PERRLA, Sclera and injection are normal. No conjunctival discharge. Nose : Mucous membranes are without erythema. Throat : buccal mucosa is normal, gums are without significant recession or hypertrophy. Lungs : Equal chest rise bilaterally, no use of accessory muscles, trachea is midline. Cor : Rate and rhythm are normal. Abdomen : Soft, ND, NT, no g/r/m Extremities : No edema, no cyanosis or clubbing, dorsalis pedis pulses are present bilaterally, non-tender to palpation of calves. Upper extremities are normal bilaterally. Back : non-tender to palpation, no CVA tenderness. Neuro : CN II - XII intact, Upper and lower extremities have equal and full strength Data 07/05/24 03:50 07/06/24 04:37 A&P Assessment and plan (1) Acute kidney injury superimposed on chronic kidney disease: Plan Permacath placement The risks and benefits of the procedure, including but not limited to, bleeding, infection, infection requiring Mediport removal antibiotic therapy and repeat surgery, damage to surrounding structures, scar, numbness, pain, pneumothorax requiring thoracostomy tube, were explained to the patient. He/She is understanding of the risks and wishes to proceed. Coding Level of Care Code 44685 Diagnoses Acute kidney injury superimposed on chronic kidney disease N17.9; N18.9
--- NOTE | 2024-07-06 10:46 | PM.PN ---
Subjective Subjective: No acute overnight events noted. Blood pressure is still on the higher side at 179/87. He denies any complaint of chest pain or shortness of breath. Medications: Reviewed: Yes Vitals/I&O/Wt Last Vital Signs Temp 97.5 F L 07/06/24 07:25 Pulse 97 07/06/24 07:25 Resp 20 H 07/06/24 07:25 BP 179/87 07/06/24 07:25 Pulse Ox 96 07/06/24 07:25 O2 Del Method Room Air 07/06/24 07:25 07/05/24 07/06/24 07/06/24 22:59 06:59 14:59 Intake Total 480 / 480 Output Total 800 / 800 Balance -320 / -320 Weight last 48 hrs Weight 128.367 kg Weight 128.367 kg Weight 127.459 kg Physical Exam Narrative: He is alert awake oriented x 3, obese, not in acute distress but seems highly anxious. Chest clear to auscultation bilaterally Cardiovascular normal heart sounds Abdomen NAD Extremities no edema noted bilateral lower extremity Data 07/05/24 03:50 07/06/24 04:37 A&P Assessment and plan (1) Acute kidney injury superimposed on chronic kidney disease: (2) Diabetes mellitus: (3) Hypertension: (4) Peripheral neuropathy: (5) Morbid obesity: (6) Generalized anxiety disorder: (7) Major depressive disorder, recurrent severe without psychotic features: (8) GERD (gastroesophageal reflux disease): Plan Abimael Cochran is a 54 year old male with past medical history of uncontrolled hypertension, hyperlipidemia, major depressive disorder, generalized anxiety disorder, chronic low back pain, type 2 diabetes mellitus was referred by primary care physician for abnormal labs and found to have creatinine of 6.9, potassium of 3.0, BUN 49. Admit to CSU Acute on chronic kidney disease- Nephrology consulted in ED Plan for hydration with IV fluids at 125cc/hr Follow up nephrology for further recommendations. Follow-up renal ultrasound Uncontrolled hypertension-systolic blood pressure in high 190s Also has component of anxiety, hence will do Xanax 0.5 mg 3 times daily as needed Captopril, diltiazem and metoprolol on hold secondary to Tommie Continue Coreg 12.5 mg twice daily, hydralazine 50 mg 3 times daily and nifedipine ER 30 mg daily as per nephrology. Monitor for now. Continue aspirin and Lipitor Type 2 diabetes mellitus-will continue with insulin glargine 60 units twice daily Monitor fingersticks 3 times daily with meals and bedtime Major depressive disorder/RODERICK-continue DIRECTOR OF COLLECTIONS Cymbalta, Zoloft, trazodone and Rexulti Chronic low back pain-continue DIRECTOR OF COLLECTIONS pregabalin GI prophylaxis with IV Pepcid DVT prophylaxis with SCD N.p.o. for now for possible HD catheter later today. 07/05-creatinine still 6.7 today. Spoke with nephrology, wants to monitor for 1 more day. In view of normal renal ultrasound, normal potassium levels, patient not uremic, as per nephrology patient can have an outpatient kidney biopsy and further intervention if needed. Blood pressure better controlled on current regimen. Will continue to monitor. 07/06-creatinine trending up to 7.3 today. Spoke with nephrology plan for permacath and initiation of hemodialysis. Surgery consulted. N.p.o. for procedure for now. Will continue Coreg, hydralazine and nifedipine for blood pressure control. Patient educated and counseled about plan of care.Had low sugars overnight, hence will change lantus to daily for now. Attestations Medical Necessity Statement*: Patient needs continued hospitalization crossing 2 midnights for Management of TOMMIE and permacath for new onset dialysis. Time Spent in Patient Care: 15 minutes Coding Level of Care Code Acute Code for g Fwd Diagnoses Acute kidney injury superimposed on chronic kidney disease N17.9; N18.9 Diabetes mellitus E11.9 Hypertension I10 Peripheral neuropathy G62.9 Morbid obesity E66.01 Generalized anxiety disorder F41.1 Major depressive disorder, recurrent severe without psychotic features F33.2 GERD (gastroesophageal reflux disease) K21.9 Time Spent (min) 15
--- NOTE | 2024-07-06 11:48 | PC.NURSE ---
Patient left unit for surgery.
--- NOTE | 2024-07-06 11:53 | P.ANESASSM_ITS ---
Pre-Anesthetic Assessment Height/Weight: Height 1.93 m Weight 128.367 kg Temp Pulse Resp BP Pulse Ox O2 Del Method 97.8 F 81 18 198/106 98 Room Air 07/06/24 11:52 07/06/24 11:52 07/06/24 11:52 07/06/24 11:52 07/06/24 11:52 07/06/24 11:52 Operation Date: 07/06/24 12:10 Proposed Procedures p Dialysis Catheter Insertion Permacath Insertion(Not Applicable) - Jose Garza DO Familial anesthetic complications: None Was Beta Kennedy taken within 24 hours: N/A Was Clonidine taken within 24 hours: N/A Last intake: > 8 hrs, no nausea Social Tobacco and No alcohol Exam alert, oriented x 3, clear to auscultation bilaterally and regular rate & rhythm Airway Mallampati: Class IV Dentition: other (missing) Comments: Comments: large neck circumference, excess submandibular tissue Pulmonary Chronic Obstructive Pulmonary Disease and Sleep Apnea Chronic Renal Failure Metabolic Diabetes Mellitus and Hyperlipidemia Anesthetic Plan ASA status: 4 Anesthesia: General Risk of > 500 ml blood loss (7ml/kg in children): No Medications/Allergies Home Medications Medication Instructions Recorded Confirmed Last Taken Type albuterol sulfate 90 mcg/actuation 2 puff inhalation Q6H PRN sob 11/07/20 07/04/24 07/13/21 History aerosol inhaler (Ventolin HFA) atorvastatin 40 mg tablet 40 mg PO DAILY 11/07/20 07/04/24 07/04/24 09:00 History cetirizine 10 mg tablet 10 mg PO DAILY 11/07/20 07/04/24 07/04/24 09:00 History diltiazem HCl 240 mg 240 mg PO DAILY 11/07/20 07/04/24 07/04/24 09:00 History capsule,extended release 24 hr (Cartia XT) fluticasone furoate 50 1 inh inhalation BID 11/07/20 07/04/24 07/11/21 History mcg/actuation blister powder for inhalation insulin aspart U-100 100 unit/mL 100 unit SUBCUT DAILY PRN blood 11/07/20 07/04/24 07/09/21 History (3 mL) subcutaneous pen (Novolog sugar FlexPen U-100 Insulin aspart) insulin glargine U-300 conc 300 60 unit SUBCUT BID 11/07/20 07/04/24 07/04/24 09:00 History unit/mL (3 mL) subcutaneous pen (Toujeo Max U-300 SoloStar) oxycodone 10 mg tablet 10 mg PO Q6H PRN Pain 11/07/20 07/04/24 07/04/24 09:00 History tamsulosin 0.4 mg capsule (Flomax) 0.4 mg PO DAILY 11/07/20 07/04/24 07/04/24 History aspirin 81 mg tablet,delayed 81 mg PO DAILY 02/03/21 07/04/24 07/03/24 History release cyclobenzaprine 10 mg tablet 10 mg PO TID 05/29/21 07/04/24 07/04/24 09:00 History metoprolol tartrate 75 mg tablet 75 mg PO TID 05/29/21 07/04/24 07/04/24 09:00 History multivitamin 1 tab PO DAILY 05/29/21 07/04/24 07/04/24 History pregabalin 100 mg capsule (Lyrica) 100 mg PO TID 05/29/21 07/04/24 07/04/24 09:00 History ondansetron HCl 4 mg tablet 4 mg PO Q6H PRN nausea and 07/17/21 07/04/24 07/04/24 Rx (Zofran) vomiting #30 tabs pantoprazole 40 mg tablet,delayed 40 mg PO DAILY POST GASTRIC SLEEVE 07/17/21 07/04/24 07/04/24 09:00 Rx release (Protonix) 30 days #30 tabs captopril 25 mg tablet 25 mg PO TID 03/22/23 07/04/24 07/04/24 09:00 History dapagliflozin propanediol 5 mg 5 mg PO DAILY 03/22/23 07/04/24 07/04/24 09:00 History tablet (Farxiga) terazosin 1 mg capsule 1 mg PO DAILY 07/06/23 07/04/24 07/04/24 09:00 History testosterone cypionate 100 mg/mL 100 mg SUBCUT Q7D 01/04/24 07/04/24 Unknown History intramuscular oil brexpiprazole 2 mg tablet (Rexulti) 2 mg PO DAILY #30 tabs 04/06/24 07/04/24 07/04/24 Rx duloxetine 60 mg capsule,delayed 120 mg (2 x 60 mg) PO DAILY #60 04/06/24 07/04/24 07/04/24 Rx release caps sertraline 100 mg tablet (Zoloft) 200 mg (2 x 100 mg) PO DAILY #60 04/06/24 07/04/24 07/04/24 Rx tabs trazodone 100 mg tablet 400 mg (4 x 100 mg) PO .HS PRN 04/06/24 07/04/24 07/03/24 Rx insomnia #120 tabs Allergies Allergy/AdvReac Type Severity Reaction Status Date / Time diphenhydramine Allergy Unknown Unknown Verified 01/04/24 09:36 [From Benadryl] ertapenem [From Invanz] Allergy Unknown Unknown Verified 01/04/24 09:36 Current Medications Generic Name Dose Route Start Last Admin Trade Name Freq PRN Reason Stop Dose Admin Alprazolam 0.5 mg 07/04/24 14:19 07/06/24 08:11 Alprazolam 0.5 Mg Tablet PO 0.5 mg TID PRN Administration ANXIETY Aspirin 81 mg 07/05/24 09:00 07/06/24 08:11 Aspirin 81 Mg Ec Tablet PO 81 mg DAILY ISABEL Administration Atorvastatin Calcium 40 mg 07/05/24 09:00 07/06/24 08:11 Atorvastatin 40 Mg Tablet PO 40 mg DAILY ISABEL Administration Carvedilol 12.5 mg 07/04/24 18:00 07/06/24 08:11 Carvedilol 12.5 Mg Tablet PO 12.5 mg BID ISABEL Administration Duloxetine HCl 120 mg 07/05/24 09:00 07/06/24 08:11 Duloxetine 60 Mg Capsule PO 120 mg DAILY ISABEL Administration Famotidine 20 mg 07/04/24 14:15 07/06/24 03:14 Famotidine 20 Mg/2 Ml Inj IVP 20 mg Q12H ISABEL Administration Hydralazine HCl 50 mg 07/04/24 15:00 07/06/24 08:10 Hydralazine 50 Mg Tablet PO 50 mg TID ISABEL Administration Sodium Chloride 1,000 mls @ 125 mls/hr 07/04/24 14:09 07/06/24 10:39 Sodium Chloride 0.9% IV Not Given .Q8H ISABEL Dextrose 1,000 mls @ 30 mls/hr 07/06/24 06:00 07/06/24 06:18 D10w IV 30 mls/hr .Q24H ISABEL Administration Nifedipine 30 mg 07/05/24 09:00 07/06/24 08:11 Nifedipine Er (24 Hr) 30 Mg Tablet PO 30 mg DAILY ISABEL Administration Pregabalin 100 mg 07/04/24 15:00 07/06/24 08:11 Pregabalin 100 Mg Capsule PO 100 mg TID ISABEL Administration Sertraline HCl 200 mg 07/05/24 09:00 07/06/24 08:12 Sertraline 100 Mg Tablet PO 200 mg DAILY ISABEL Administration Tamsulosin HCl 0.4 mg 07/05/24 09:00 07/06/24 08:11 Tamsulosin 0.4 Mg Capsule PO 0.4 mg DAILY ISABEL Administration Terazosin HCl 1 mg 07/05/24 09:00 07/06/24 08:10 Terazosin 1 Mg Capsule PO 1 mg DAILY ISABEL Administration Trazodone HCl 400 mg 07/04/24 14:17 07/05/24 20:42 Trazodone 100 Mg Tablet PO 400 mg BEDTIME PRN Administration insomnia PFSH Anesthesia Medical History Psychiatric care GERD (gastroesophageal reflux disease) Chronic kidney disease Hypertension Hyperlipidemia Diabetes Morbid obesity Bereavement Chronic major depressive disorder Colon polyp Encounter for screening colonoscopy Surgical History History of colonoscopy with polypectomy History of tonsillectomy History of foot surgery History of shoulder surgery Family History Denies family history of Anesthesia complication Bleeding disorder Social History Smoking and tobacco/nicotine status: current every day tobacco/nicotine user smokeless tobacco Smokeless tobacco user: snuff Smokeless tobacco details: One can/day. Chewed for 30 or 40 yrs. Quit status (tobacco/nicotine): has tried quititng Number of times tried to quit tobacco: 3 Second hand smoke exposure: Yes (Occ.) Alcohol intake: current Alcohol intake frequency: holidays/special occasions only Alcohol type: beer Substance/Drug Use: current Substance/Drug use frequency: few times a week Other substance/drug use details: A few times a week. Data Anesthesia 07/05/24 03:50 07/06/24 04:37 Short CBC 07/05/24 Range/Units 03:50 WBC 7.53 (3.29-11.43) 10^3/uL Hgb 11.40 (11.27-16.99) g/dL Hct 33.8 L (37-53) % MCV 81.3 L (82-101) fl Plt Count 179 (157-399) 10^3/cmm Neut % (Auto) 79.6 % Neut # (Auto) 6.00 (1.8-7.7) 10^3/uL BMP 07/04/24 07/05/24 07/06/24 18:37 03:50 04:37 Sodium 137 140 139 Potassium 2.8 L* 3.3 L 3.4 L Chloride 101 105 105 Carbon Dioxide 22 21 L 21 L BUN 49 H 46 H 47 H Creatinine 6.6 H* 6.7 H* 7.3 H* Glucose 116 H 114 65 Calcium 7.2 L 7.6 L 7.4 L Urine 07/04/24 07/05/24 Range/Units 15:50 00:10 Urine Color Yellow Yellow (Yellow) Urine Appearance Clear Clear (CLEAR) Urine pH 6.5 6.5 (5-7) Ur Specific [place] 1.014 1.011 (1.005-1.030) Urine Protein 4+ A 3+ A (Negative) Urine Glucose (UA) 3+ H 2+ H (Normal) Urine Ketones Negative Negative (Negative) Urine Nitrate Negative Negative (Negative) Urine Bilirubin Negative Negative (Negative) Ur Leukocyte Esterase Negative Negative (Negative) Urine RBC 0-2 0-2 (0-2) /hpf Urine WBC 0-5 0-5 (0-5) /hpf Cardiac Studies: 2 No Data to Display
[2024-07-06] MEDS: sodium chloride 0.9% 1,000 ML 30 ML IV (11:56)
--- NOTE | 2024-07-06 12:12 | SC_ITS ---
WS: [id number] Insertion dialysis catheter, 07/06/2024 Clinical Data: diaylsis cath Comparison: Portable chest, 07/04/2024 Findings: Dr. Garza inserted a right dialysis catheter. SC/C-arm FL for CVA [id number] Impression: Right dialysis catheter insertion.
--- NOTE | 2024-07-06 12:31 | PC.NURSE ---
1225 3gm Ancef given IVP by anesthesia in OR room. Will not be charted at MAR
[2024-07-06] MEDS: heparin, porcine 1,000 unit/mL INJ 10 mL 10000 UNIT INJECTION (12:40)
[2024-07-06] MEDS: lidocaine-epi 2% PF 1:200,000 20 mL SDV XX (12:42)
--- NOTE | 2024-07-06 12:58 | PM.OP ---
Operative Report Date of procedure: July 06, 2024 Pre-op diagnosis: Acute on chronic kidney disease Post-op diagnosis: same Procedure done: Permacath placement Intraoperative interpretation of fluoroscopy Implants: 27 cm permacath Specimens removed/disposition: None Surgeon: Jose Garza DO Anesthesia: General and Local Estimated blood loss (mL): 5 Complications: None apparent Brief History: This is a very pleasant 54-year-old gentleman who presented to the hospital with acute on chronic kidney disease. Nephrology requested PermCath placement. The risks and benefits of procedure were explained to the patient and documented. They were willing to proceed. Procedure: Patient was taken to the operating room and placed supine on the operating room table. All bony prominences were padded. He was given IV sedation and monitored throughout the case by the anesthesia personnel. SCDs were placed and turned on. The arms were tucked to the side. Patient received Vancomycin preoperatively IV. The bilateral chest wall was prepped and draped in usual sterile fashion using chlorhexidine base prep. Sterile drapes were applied. We did procedure pause prior to beginning. An 18 gauge needle was placed in the right internal jugular vein under ultrasound guidance. Dark, nonpulsatile blood was aspirated. A guidewire was placed through the needle centrally toward the atrial/vena caval junction. Fluoroscopy visualized good placement. The needle was removed and the guidewire was clipped to the drape with a hemostat. Further local anesthetic was infiltrated in the soft tissues of the right chest wall and a #15 blade was used to make a vertical skin incision. A #15 blade was used to make a small skin hany around the guidewire insertion area. The permacath tubing was tunneled through the subcutaneous tissues up to the needle insertion location. Serial dilators were used to serially dilate over the guidewire . A dilator with a peel-away sheath was placed over the guidewire and placed centrally. The guidewire was removed as well as the dilator and the permacath was fed into the split sheath. The split sheath was removed. Both ports were aspirated to reveal dark blood and were flushed with saline only as the patient has a heparin allergy. Final fluoroscopy visualization showed no kink in the catheter and the tip of the permacath overlying the right atrium. No obvious pneumothorax. Both skin incisions were thoroughly irrigated and suctioned dry. Meticulous hemostasis noted. The internal jugular access site was closed with 4-0 Vicryl in a subcuticular fashion. The skin overlying the permacath was closed in a similar manner. The permacath was then sutured into place using 2-0 nylon in a simple interrupted fashion. skin glue was applied as a topical dressing. This was allowed to dry. Patient was awakened from anesthesia and transferred via her cart to the recovery room in stable condition. All needle, sponge, and instrument counts were correct per the operating personnel x2 counts.
--- NOTE | 2024-07-06 13:00 | XR_ITS ---
WS: [id number] Portable AP semiupright chest, 07/06/2024 Clinical Data: S/P Permacath placement Comparison: Portable chest, 07/04/2024 Findings: There is a right dialysis catheter which enters the right internal jugular vein and ends at the caval atrial junction. No nodules, masses or effusions are seen. The heart is normal. The pulmon roberto vascularity is not increased. No pneumonia or pneumothorax is seen. The aortic arch shows mild to rtuosity. There are monitor leads on the chest wall. XR/XR chest 1V portable [id number] Impression: Satisfactory insertion of right dialysis catheter.
--- NOTE | 2024-07-06 13:35 | ANE.PACU2 ---
Inpatient post-anesthesia follow up: Airway intact: Yes Vital signs: Temperature 97.1 F Pulse Rate 82 Respiratory Rate 16 Blood Pressure 155/83 Pulse Oximetry 96 Oxygen Delivery Me thod Room Air Oxygen Flow Rate 6 Fraction of Inspir ed Oxygen Hydration adequate: Yes Nausea and vomiting: No Pain level: 1 Mental status: Baseline
--- NOTE | 2024-07-06 13:49 | PC.NURSE ---
Patient is back from surgery at 1350.
[2024-07-06 14:28] LABS: COMPLEMENT COMPONENT C3C 85 mg/dL (82-185); COMPLEMENT COMPONENT C4C 28 mg/dL (15-53)
[2024-07-06 14:39] LABS: CENTROMERE B ANTIBODY <1.0 NEG AI (<1.0 NEG); JO-1 ANTIBODY <1.0 NEG AI (<1.0 NEG); RNP ANTIBODY <1.0 NEG AI (<1.0 NEG); SCL-70 ANTIBODY <1.0 NEG AI (<1.0 NEG); SJOGREN'S ANTIBODY (SS-A) <1.0 NEG AI (<1.0 NEG); SM ANTIBODY <1.0 NEG AI (<1.0 NEG); SS-B <1.0 NEG AI (<1.0 NEG)
[2024-07-06] MEDS: sodium chloride 0.9% 1,000 ML 125 ML IV (14:51)
[2024-07-06] MEDS: HYDROcodone-acetaminophen 7.5-325 mg Tablet 1 TAB PO (14:56)
--- NOTE | 2024-07-06 15:16 | PC.NURSE ---
Patient is leaving the unit to dialysis at 1517.
--- NOTE | 2024-07-06 15:44 | PC.HD ---
Heparin 1000 units loading dose administered at 1534 via venous port of HD catheter per job training specialist's orders.
[2024-07-06 16:25] LABS: Glucose Point of Care 201 mg/dL (70-110)
[2024-07-06] MEDS: trazodone 100 mg Tablet 400 MG PO (20:31)
[2024-07-07] VITALS (17 sets, daily range): BP systolic 148–197; BP diastolic 82–102; PULSE 64–114; RESP 16–36; TEMP 36.3–37; O2SAT 78–100
[2024-07-07] MEDS: famotidine 20 mg/2 mL INJ IVP ×2 (03:02→14:42)
[2024-07-07 04:09] LABS: Basophils % 0.4 %; Eosinophils % 0.1 %; Hematocrit 35.5 % (37-53); Lymphocytes # 0.5 10^3/uL (0.8-4.8); Lymphocytes % 5.6 %; Mean Corpuscular HGB Conc 32.1 g/dL (30-55); Mean Corpuscular Hemoglobin 27.3 pg (27-33); Mean Corpuscular Volume 84.9 fl (82-101); Mean Platelet Volume 10.4 fL (7.4-10.4); Monocytes # 0.3 10^3/uL (0.2-0.9); Monocytes % 3.2 %; Neutrophils # 7.66 10^3/uL (1.8-7.7); Neutrophils % 90.5 %; Nucleated Red Blood Cells % 0 %; Platelet Count 196 10^3/cmm (157-399); Red Blood Count 4.18 10^6/uL (3.85-5.65); White Blood Count 8.46 10^3/uL (3.29-11.43)
[2024-07-07 04:28] LABS: Anion Gap 14.3 (5-19); Blood Urea Nitrogen 36 mg/dL (6-20); Calcium 7.6 mg/dL (8.5-10.5); Carbon Dioxide 24 mmol/L (22-29); Chloride 104 mmol/L (98-107); Creatinine Clr Calc Pharmacy 19.8894; Glomerular Filtration Rate 9.5 mL/min (90-130); Glucose 151 mg/dL (65-115); Osmolality Calculated 297 mOsm/kg (285-295); Potassium 4.3 mmol/L (3.5-5.1); Sodium 138 mmol/L (136-145)
--- NOTE | 2024-07-07 04:56 | PM.PN ---
Subjective Subjective: no new c/o Medications: Reviewed: Yes Vitals/I&O/Wt Last Vital Signs Temp 98.5 F 07/07/24 04:00 Pulse 92 07/07/24 04:00 Resp 19 H 07/07/24 04:00 BP 180/102 07/07/24 04:00 Pulse Ox 100 07/07/24 04:00 O2 Del Method Room Air 07/06/24 13:32 O2 Flow Rate 6 07/06/24 13:17 07/06/24 07/06/24 07/07/24 14:59 22:59 06:59 Intake Total 240 / 240 1158.5 / 1398.5 960 / 2358.5 Output Total / 3000 / 3002 750 / 3752 Balance 238 / 238 -1841.5 / -1603.5 210 / -1393.5 Weight last 48 hrs Weight 127.9 kg Weight 128.4 kg Weight 128.367 kg Weight 128.367 kg Physical Exam Narrative: Patient is awake alert, no distress and on room air HEENT S1-S2 regular rate and rhythm per report Lungs clear per report has pedal edema Data 07/07/24 03:15 07/07/24 03:15 A&P Assessment and plan (1) Acute kidney injury superimposed on chronic kidney disease: 1. Acute on chronic kidney disease: Last creatinine known was October and creatinine was 3.4. I suspect patient has progression of CKD due to poorly controlled hypertension but may have a component of MIRANDA as well., getting IV fluidbut no improvement in renal fxn yet . Cr remains high , plan for inititation of HD --> pt agreed - s/p tunnelled catheter placement and started HD , # 2 today Will also order UA urine protein to creatinine ratio, other serologies- PENDING -will benefit from renal biopsy-can be done as outpatient . - Also he wants to switch to PD at a later time 2. Hypertension: Poorly controlled on presentation , started on Coreg nifedipine and hydralazine- better 3. Hypokalemia: Monitor, repleted 4. History of diabetes Patient evaluated using audiovisual cart. Time spent 40 minutes. Plan per [facility] Attestations Medical Necessity Statement*: per [facility] team Coding Level of Care Code Acute Code for Chg Fwd Diagnoses Acute kidney injury superimposed on chronic kidney disease N17.9; N18.9
[2024-07-07 06:30] LABS: Glucose Point of Care 100 mg/dL (70-110)
[2024-07-07] MEDS: ALPRAZolam 0.5 mg Tablet PO ×2 (08:14→14:56)
[2024-07-07] MEDS: aspirin 81 mg EC Tablet PO (08:15)
[2024-07-07] MEDS: atorvastatin 40 mg Tablet PO (08:15)
[2024-07-07] MEDS: hyDRALAzine 50 mg Tablet PO ×3 (08:15→21:00)
[2024-07-07] MEDS: tamsulosin 0.4 mg Capsule PO (08:15)
[2024-07-07] MEDS: NIFEdipine ER (24 hr) 30 mg Tablet PO (08:15)
[2024-07-07] MEDS: pregabalin 100 mg Capsule PO ×3 (08:15→20:59)
[2024-07-07] MEDS: duloxetine 60 mg Capsule 120 MG PO (08:15)
[2024-07-07] MEDS: carvedilol 12.5 mg Tablet PO ×2 (08:15→17:23)
[2024-07-07] MEDS: sertraline 100 mg Tablet 200 MG PO (08:15)
[2024-07-07 09:08] LABS: Glucose Point of Care 149 mg/dL (70-110)
--- NOTE | 2024-07-07 09:27 | PC.HD ---
Heparin 1000 units loading dose administered via venous port of HD catheter at 0912 per program engagement director's orders. Dressing with small amount of bleeding breakthrough as well as running out the bottom of dressing. Dressing removed, clots cleansed with chloraprep, 2x2s applied to catheter access site, and fresh dressing applied.
--- NOTE | 2024-07-07 09:33 | PC.NURSE ---
Patient left unit for dialysis at 0855.
--- NOTE | 2024-07-07 11:16 | PC.SOCIAL ---
IMM Updated IMM dated and initialed, copy placed in chart and given to patient.
--- NOTE | 2024-07-07 12:12 | PC.NURSE ---
Patient returned from dialysis to CSU at 1210. TR Braga said that she pulled 2.5L off.
--- NOTE | 2024-07-07 12:20 | PC.NURSE ---
Provider ordered to discontinue his NS at 125ml/hr.
--- NOTE | 2024-07-07 12:43 | PM.PN ---
Subjective Subjective: No acute overnight events noted. He is s/p permacath yesterday. Planning for HD today. Denies any complaint of chest pain or shortness of breath. Medications: Reviewed: Yes Vitals/I&O/Wt Last Vital Signs Temp 98.6 F 07/07/24 09:25 Pulse 91 07/07/24 12:00 Resp 23 H 07/07/24 12:00 BP 148/82 07/07/24 12:00 Pulse Ox 94 07/07/24 12:00 O2 Del Method Room Air 07/07/24 12:00 O2 Flow Rate 2 07/07/24 07:59 07/06/24 07/07/24 07/07/24 22:59 06:59 14:59 Intake Total 1158.5 / 1398.5 960 / 2358.5 593 / 593 Output Total 3000 / 3002 750 / 3752 Balance -1841.5 / -1603.5 210 / -1393.5 593 / 593 Weight last 48 hrs Weight 127.9 kg Weight 128.4 kg Weight 128.367 kg Physical Exam Narrative: He is alert awake oriented x 3, obese, not in acute distress but seems highly anxious. Chest clear to auscultation bilaterally, HD catheter in place, no signs of active bleeding or infection seen. Cardiovascular normal heart sounds Abdomen NAD Extremities no edema noted bilateral lower extremity Data 07/07/24 03:15 07/07/24 03:15 A&P Assessment and plan (1) Acute kidney injury superimposed on chronic kidney disease: (2) Diabetes mellitus: (3) Hypertension: (4) Peripheral neuropathy: (5) Morbid obesity: (6) Generalized anxiety disorder: (7) Major depressive disorder, recurrent severe without psychotic features: (8) GERD (gastroesophageal reflux disease): Plan Abimael Cochran is a 54 year old male with past medical history of uncontrolled hypertension, hyperlipidemia, major depressive disorder, generalized anxiety disorder, chronic low back pain, type 2 diabetes mellitus was referred by primary care physician for abnormal labs and found to have creatinine of 6.9, potassium of 3.0, BUN 49. Admit to CSU Acute on chronic kidney disease- Nephrology consulted in ED Plan for hydration with IV fluids at 125cc/hr Follow up nephrology for further recommendations. Follow-up renal ultrasound Uncontrolled hypertension-systolic blood pressure in high 190s Also has component of anxiety, hence will do Xanax 0.5 mg 3 times daily as needed Captopril, diltiazem and metoprolol on hold secondary to Tommie Continue Coreg 12.5 mg twice daily, hydralazine 50 mg 3 times daily and nifedipine ER 30 mg daily as per nephrology. Monitor for now. 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 for now for possible HD catheter later today. 07/05-creatinine still 6.7 today. Spoke with nephrology, wants to monitor for 1 more day. In view of normal renal ultrasound, normal potassium levels, patient not uremic, as per nephrology patient can have an outpatient kidney biopsy and further intervention if needed. Blood pressure better controlled on current regimen. Will continue to monitor. 07/06-creatinine trending up to 7.3 today. Spoke with nephrology plan for permacath and initiation of hemodialysis. Surgery consulted. N.p.o. for procedure for now. Will continue Coreg, hydralazine and nifedipine for blood pressure control. Patient educated and counseled about plan of care.Had low sugars overnight, hence will change lantus to daily for now. 07/07-he received hemodialysis this morning. Creatinine trending down to 6.2 today. Blood pressure improved post dialysis, 148/82 on Coreg, hydralazine and nifedipine. Will continue to monitor and follow-up nephrology for further recommendations. Attestations Medical Necessity Statement*: Patient needs continued hospitalization crossing 2 midnights for Management of acute on chronic renal failure, with hemodialysis. Anticipating discharge in a.m. Time Spent in Patient Care: 15 minutes Coding Level of Care Code Acute Code for Chg Fwd Diagnoses Acute kidney injury superimposed on chronic kidney disease N17.9; N18.9 Diabetes mellitus E11.9 Hypertension I10 Peripheral neuropathy G62.9 Morbid obesity E66.01 Generalized anxiety disorder F41.1 Major depressive disorder, recurrent severe without psychotic features F33.2 GERD (gastroesophageal reflux disease) K21.9 Time Spent (min) 15
--- NOTE | 2024-07-07 13:33 | PC.HD ---
At conclusion of treatment, catheter site no longer oozing/bleeding. Dressing clean and dry.
[2024-07-07 14:44] LABS: COMPLEMENT, TOTAL (CH50) 55 U/mL (31-60)
[2024-07-07 15:18] LABS: ANA SCREEN, IFA NEGATIVE (NEGATIVE)
[2024-07-07 17:13] LABS: Glucose Point of Care 211 mg/dL (70-110)
--- NOTE | 2024-07-07 18:38 | PC.NURSE ---
Provider is updated on patients blood sugars, his lantus has been on hold because of being NPO for surgery and low blood sugars. Patient is now eating and drinking normally so lantus will be started tonight. order entered.
[2024-07-07 20:27] LABS: Glucose Point of Care 258 mg/dL (70-110)
[2024-07-07] MEDS: insulin glargine 100 units/1 mL 40 UNIT SUBCUT (20:59)
[2024-07-07] MEDS: trazodone 100 mg Tablet 400 MG PO (21:00)
[2024-07-08] VITALS (67 sets, daily range): BP systolic 130–205; BP diastolic 76–113; PULSE 78–109; RESP 6–51; TEMP 36.4–37.3; O2SAT 94–100
[2024-07-08] MEDS: famotidine 20 mg/2 mL INJ IVP ×2 (02:36→16:45)
[2024-07-08 04:08] LABS: Anion Gap 13.6 (5-19); Blood Urea Nitrogen 32 mg/dL (6-20); Calcium 7.4 mg/dL (8.5-10.5); Carbon Dioxide 26 mmol/L (22-29); Chloride 99 mmol/L (98-107); Glomerular Filtration Rate 11.6 mL/min (90-130); Glucose 101 mg/dL (65-115); Osmolality Calculated 287 mOsm/kg (285-295); Potassium 3.6 mmol/L (3.5-5.1); Sodium 135 mmol/L (136-145)
[2024-07-08 04:16] LABS: Creatinine Clr Calc Pharmacy 23.5949
--- NOTE | 2024-07-08 06:02 | P.PN_ITS ---
Subjective 2 Subjective: no new c/o Medications: Reviewed: Yes Vitals/I&O/Wt Last Vital Signs Temp 97.7 F 07/08/24 04:12 Pulse 79 07/08/24 05:28 Resp 9 L 07/08/24 05:28 BP 136/82 07/08/24 05:28 Pulse Ox 96 07/08/24 05:28 O2 Del Method Room Air 07/08/24 00:00 O2 Flow Rate 2 07/07/24 07:59 07/07/24 07/07/24 07/08/24 14:59 22:59 06:59 Intake Total 3395 / 3395 220 / 3615 240 / 3855 Output Total 3000 / 3000 700 / 3700 700 / 4400 Balance 395 / 395 -480 / -85 -460 / -545 Weight last 48 hrs Weight 126.6 kg Weight 127.9 kg Weight 128.4 kg Physical Exam 2 Narrative: Patient is awake alert, no distress and on room air HEENT S1-S2 regular rate and rhythm per report Lungs clear per report has pedal edema Data 07/07/24 03:15 07/08/24 03:32 A&P Assessment and plan (1) Acute kidney injury superimposed on chronic kidney disease: 1. Acute on chronic kidney disease: Last creatinine known was October and creatinine was 3.4. I suspect patient has progression of CKD due to poorly controlled hypertension but may have a component of MIRANDA as well., getting IV fluidbut no improvement in renal fxn yet . Cr remains high , plan for inititation of HD --> pt agreed - s/p tunnelled catheter placement and started HD , # 3 today Will also order UA urine protein to creatinine ratio, other serologies- PENDING -will benefit from renal biopsy-can be done as outpatient . - Also he wants to switch to PD at a later time 2. Hypertension: Poorly controlled on presentation , started on Coreg nifedipine and hydralazine- better 3. Hypokalemia: Monitor, repleted 4. History of diabetes Patient evaluated using audiovisual cart. Time spent 40 minutes. Plan per [facility] Attestations 2 Medical Necessity Statement*: per medicine Coding Level of Care Code Acute Code for Chg Fwd Diagnoses Acute kidney injury superimposed on chronic kidney disease N17.9; N18.9
[2024-07-08 06:30] LABS: Glucose Point of Care 83 mg/dL (70-110)
[2024-07-08 07:01] LABS: Glucose Point of Care 88 mg/dL (70-110)
[2024-07-08] MEDS: atorvastatin 40 mg Tablet PO (09:35)
[2024-07-08] MEDS: NIFEdipine ER (24 hr) 30 mg Tablet PO ×2 (09:35→18:42)
[2024-07-08] MEDS: sertraline 100 mg Tablet 200 MG PO (09:35)
[2024-07-08] MEDS: hyDRALAzine 50 mg Tablet PO ×3 (09:36→20:23)
[2024-07-08] MEDS: pregabalin 100 mg Capsule PO (09:36)
[2024-07-08] MEDS: carvedilol 12.5 mg Tablet PO ×2 (09:36→17:48)
[2024-07-08] MEDS: aspirin 81 mg EC Tablet PO (09:36)
[2024-07-08] MEDS: duloxetine 60 mg Capsule 120 MG PO (09:36)
[2024-07-08] MEDS: tamsulosin 0.4 mg Capsule PO (09:36)
--- NOTE | 2024-07-08 10:25 | P.DS_ITS ---
Discharge Providers Date of Admission: 07/04/24 13:28 Date of Discharge: July 08, 2024 Attending Provider at Admission: Yaneth Demarco MD Attending Provider at Discharge: Yaneth Demarco MD Consults: Nephrology and surgery Primary Care Provider: ALONDRA Caldera Diagnoses at Discharge Discharge Diagnosis (1) Acute kidney injury superimposed on chronic kidney disease: Status: Acute Reason for Visit Reason for Visit: emergency dialysis doctor sent Brief History: Abimael Cochran is a 54 year old male with past medical history of uncontrolled hypertension, hyperlipidemia, major depressive disorder, generalized anxiety disorder, chronic low back pain, type 2 diabetes mellitus was referred by primary care physician for abnormal labs. He was found to have a creatinine of 6.9. He has been following up with nephrology as outpatient, last follow-up was 6 months ago. He has scheduled appointment after 1 week with nephrology for possible kidney biopsy. He denies any complaint of fever, chest pain, palpitations, dizziness, shortness of breath, urinary or bowel complaints. He has history of brief dialysis in 2014. Nephrology consulted in ER. As per the ER physician plan for for IV fluids and hydration for now. Nephrology to plan for HD catheter and dialysis later today. He is found to have acute on chronic kidney injury. As per his labs earlier this year he had creatinine of 3.4 and now with 6.9. Hospital Course Hospital Course Acute on chronic kidney disease- Nephrology consulted in ED Plan for hydration with IV fluids at 125cc/hr Follow up nephrology for further recommendations. Follow-up renal ultrasound Uncontrolled hypertension-systolic blood pressure in high 190s Also has component of anxiety, hence will do Xanax 0.5 mg 3 times daily as needed Captopril, diltiazem and metoprolol on hold secondary to Tommie Continue Coreg 12.5 mg twice daily, hydralazine 50 mg 3 times daily and nifedipine ER 30 mg daily as per nephrology. Monitor for now. Continue aspirin and Lipitor 07/05-creatinine still 6.7 today. Spoke with nephrology, wants to monitor for 1 more day. In view of normal renal ultrasound, normal potassium levels, patient not uremic, as per nephrology patient can have an outpatient kidney biopsy and further intervention if needed. Blood pressure better controlled on current regimen. Will continue to monitor. 07/06-creatinine trending up to 7.3 today. Spoke with nephrology plan for p ermacath and initiation of hemodialysis. Surgery consulted. N.p.o. for procedure for now. Will continue Coreg, hydralazine and nifedipine for blood pressure control. Patient educated and counseled about plan of care.Had low sugars overnight, hence will change lantus to daily for now. 07/07-he received hemodialysis this morning. Creatinine trending down to 6.2 today. Blood pressure improved post dialysis, 148/82 on Coreg, hydralazine and nifedipine. Will continue to monitor and follow-up nephrology for further recommendations. 07/08-Creatinine 5.2 today. he is doing and feeling better, will discharge home today. Blood pressure stable. Case management set him up for Hemodialysis for MWF. Physical Exam Narrative: He is alert awake oriented x 3, obese, not in acute distress but seems highly anxious. Chest clear to auscultation bilaterally, HD catheter in place, no signs of active bleeding or infection seen. Cardiovascular normal heart sounds Abdomen NAD Extremities no edema noted bilateral lower extremity Discharge Data Studies Completed and Pending Completed Studies During Hospitalization Category Date Time Status CXRP [XR chest 1V portable [id number]] Stat Exams 07/06/24 13:00 Completed XR chest 1V portable [id number] Stat Exams 07/04/24 10:23 Completed US renal BI* [id number] Routine Ultrasound 07/04/24 14:45 Completed Pending at discharge Category Date Time Status JULIANNE Profile Rheumatology Routine Lab 07/04/24 19:45 Results Radiology Impressions Renal Ultrasound 07/04/24 14:45 IMPRESSION: 1. No hydronephrosis in either kidney. 2. Normal-appearing bladder. 3. No other acute findings. C-Arm Fluoroscopy 07/06/24 12:12 Impression: Right dialysis catheter insertion. Chest X-Ray 07/06/24 13:00 Impression: Satisfactory insertion of right dialysis catheter. Laboratory Results WBC 8.46 10^3/uL (3.29-11.43) 07/07/24 03:15 RBC 4.18 10^6/uL (3.85-5.65) 07/07/24 03:15 Hgb 11.40 g/dL (11.27-16.99) 07/07/24 03:15 Hct 35.5 % (37-53) L 07/07/24 03:15 MCV 84.9 fl (82-101) 07/07/24 03:15 MCH 27.3 pg (27-33) 07/07/24 03:15 MCHC 32.1 g/dL (30-55) 07/07/24 03:15 RDW 14.0 % (12.1-15.1) 07/07/24 03:15 Plt Count 196 10^3/cmm (157-399) 07/07/24 03:15 MPV 10.4 fL (7.4-10.4) 07/07/24 03:15 Neut % (Auto) 90.5 % 07/07/24 03:15 Lymph % (Auto) 5.6 % 07/07/24 03:15 [place] % (Auto) 3.2 % 07/07/24 03:15 Eos % (Auto) 0.1 % 07/07/24 03:15 Baso % (Auto) 0.4 % 07/07/24 03:15 Neut # (Auto) 7.66 10^3/uL (1.8-7.7) 07/07/24 03:15 Lymph # (Auto) 0.5 10^3/uL (0.8-4.8) L 07/07/24 03:15 [place] # (Auto) 0.3 10^3/uL (0.2-0.9) 07/07/24 03:15 Eos # (Auto) 0.0 10^3/uL (0.0-0.8) 07/07/24 03:15 Baso # (Auto) 0.0 10^3/uL (0.0-0.1) 07/07/24 03:15 Nucleated RBC % (auto) 0 % 07/07/24 03:15 Nucleated RBCs # 0.0 /100WBC 07/07/24 03:15 Sodium 135 mmol/L (136-145) L 07/08/24 03:32 Potassium 3.6 mmol/L (3.5-5.1) 07/08/24 03:32 Chloride 99 mmol/L (98-107) 07/08/24 03:32 Carbon Dioxide 26 mmol/L (22-29) 07/08/24 03:32 Anion Gap 13.6 (5-19) 07/08/24 03:32 BUN 32 mg/dL (6-20) H 07/08/24 03:32 Creatinine 5.2 mg/dL (0.7-1.2) H 07/08/24 03:32 GFR Calculation 11.6 mL/min (90-130) L 07/08/24 03:32 Glucose 101 mg/dL (65-115) 07/08/24 03:32 POC Glucose 88 mg/dL (70-110) 07/08/24 06:58 Calculated Osmolality 287 mOsm/kg (285-295) 07/08/24 03:32 Calcium 7.4 mg/dL (8.5-10.5) L 07/08/24 03:32 Magnesium 1.8 mg/dL (1.7-2.3) 07/04/24 10:17 Total Bilirubin 0.3 mg/dL (0.15-1.2) 07/04/24 10:17 AST 17 U/L (0-40) 07/04/24 10:17 ALT 11 U/L (0-41) 07/04/24 10:17 Alkaline Phosphatase 72 U/L (40-130) 07/04/24 10:17 Creatine Kinase 174 U/L (39-308) 07/04/24 10:17 Total Protein 5.7 g/dL (6.6-8.7) L 07/04/24 10:17 Albumin 3.5 g/dL (3.5-5.2) 07/04/24 10:17 Globulin 2.2 g/dL (1.3-4.6) 07/04/24 10:17 Urine Color Yellow (Yellow) 07/05/24 00:10 Urine Appearance Clear (CLEAR) 07/05/24 00:10 Urine pH 6.5 (5-7) 07/05/24 00:10 Ur Specific [place] 1.011 (1.005-1.030) 07/05/24 00:10 Urine Protein 3+ (Negative) A 07/05/24 00:10 Urine Glucose (UA) 2+ (Normal) H 07/05/24 00:10 Urine Ketones Negative (Negative) 07/05/24 00:10 Urine Blood Trace (Negative) A 07/05/24 00:10 Urine Nitrate Negative (Negative) 07/05/24 00:10 Urine Bilirubin Negative (Negative) 07/05/24 00:10 Urine Urobilinogen 0.2 mg/dL (Negative) 07/05/24 00:10 Ur Leukocyte Esterase Negative (Negative) 07/05/24 00:10 Urine RBC 0-2 /hpf (0-2) 07/05/24 00:10 Urine WBC 0-5 /hpf (0-5) 07/05/24 00:10 Ur Squamous Epith Cells 0-5 /hpf (0-5) 07/05/24 00:10 Amorphous Sediment Not Reportable 07/05/24 00:10 Urine Bacteria None seen /hpf (NONE) 07/05/24 00:10 Hyaline Casts 0-4 /lpf H 07/05/24 00:10 U Random Total Protein 386 mg/dL 07/05/24 00:10 Ur Random Sodium 41 mmol/L 07/04/24 15:50 Urine Creatinine 42 mg/dL (39-259) 07/05/24 00:10 Serum Ketones Negative (Negative) 07/04/24 10:17 JULIANNE IFA Animal Tis Res Negative (NEGATIVE) 07/04/24 19:45 JIA-1 Antibody <1.0 neg AI (<1.0 NEG) 07/04/24 19:45 SS-A Antibody <1.0 neg AI (<1.0 NEG) 07/04/24 19:45 SS-B Antibody <1.0 neg AI (<1.0 NEG) 07/04/24 19:45 Sm ([place]) Antibody <1.0 neg AI (<1.0 NEG) 07/04/24 19:45 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 Antibody <1.0 neg AI (<1.0 NEG) 07/04/24 19:45 Scl-70 Antibody <1.0 neg AI (<1.0 NEG) 07/04/24 19:45 Anti-ds DNA IgG ([place]) Not Reportable 07/04/24 19:45 Centromere B Antibody <1.0 neg AI (<1.0 NEG) 07/04/24 19:45 Complement C3 100 mg/dL (90-180) 07/04/24 18:37 Complement C3c 85 mg/dL (82-185) 07/04/24 19:45 Complement C4 31 mg/dL (10-40) 07/04/24 18:37 Complement C4c 28 mg/dL (15-53) 07/04/24 19:45 CH50 Classical Pathway 55 U/mL (31-60) 07/04/24 19:45 Hep Bs Antigen Non-reactive (Nonreactive) 07/04/24 19:45 Hep Bs Antibody < 3.5 (11.5-1000) L 07/04/24 19:45 Hepatitis C Antibody Non-reactive (Nonreactive) 07/04/24 19:45 Vitals Last Vital Signs Temp 97.6 F 07/08/24 08:00 Pulse 98 07/08/24 08:00 Resp 15 07/08/24 08:00 BP 145/102 07/08/24 08:00 Pulse Ox 99 07/08/24 08:00 O2 Del Method Room Air 07/08/24 00:00 O2 Flow Rate 2 07/07/24 07:59 Discharge Plan Discharge Patient Disposition: Home Condition: Stable Prescriptions: New nifedipine 30 mg Tablet Extended Release 24hr 30 mg PO DAILY 30 Days Qty: 30 0RF carvedilol 12.5 mg Tablet 12.5 mg PO BID 30 Days Qty: 60 0RF hydralazine 50 mg Tablet 50 mg PO TID 30 Days Qty: 90 0RF Continued atorvastatin 40 mg tablet 40 mg PO DAILY cetirizine 10 mg tablet 10 mg PO DAILY fluticasone furoate 50 mcg/actuation blister with device 1 inh inhalation BID insulin aspart U-100 [Novolog FlexPen U-100 Insulin] 100 unit/mL (3 mL) insulin pen 100 unit SUBCUT DAILY PRN (Reason: blood sugar) tamsulosin [Flomax] 0.4 mg capsule 0.4 mg PO DAILY Toujeo Max U-300 SoloStar 300 unit/mL (3 mL) insulin pen 60 unit SUBCUT BID albuterol sulfate [Ventolin HFA] 90 mcg/actuation HFA aerosol inhaler 2 puff inhalation Q6H PRN (Reason: sob) metoprolol tartrate 75 mg tablet 75 mg PO TID pregabalin [Lyrica] 100 mg capsule 100 mg PO TID multivitamin Tablet 1 tab PO DAILY cyclobenzaprine 10 mg tablet 10 mg PO TID Farxiga 5 mg tablet 5 mg PO DAILY terazosin 1 mg capsule 1 mg PO DAILY Rexulti 2 mg tablet 2 mg PO DAILY Qty: 30 2RF duloxetine 60 mg capsule,delayed release(DR/EC) 120 mg PO DAILY Qty: 60 2RF sertraline [Zoloft] 100 mg tablet 200 mg PO DAILY Qty: 60 2RF trazodone 100 mg tablet 400 mg PO .HS PRN (Reason: insomnia) Qty: 120 2RF pantoprazole [Protonix] 40 mg tablet,delayed release (DR/EC) 40 mg PO DAILY 30 Days Qty: 30 3RF aspirin 81 mg Tablet,Delayed Release (Dr/Ec) 81 mg PO DAILY Hold Instructions: Resume on 07/23/21. Discontinued diltiazem HCl [Cartia XT] 240 mg capsule,extended release 24hr 240 mg PO DAILY oxycodone 10 mg tablet 10 mg PO Q6H PRN (Reason: Pain) captopril 25 mg tablet 25 mg PO TID testosterone cypionate 100 mg/mL oil 100 mg SUBCUT Q7D ondansetron HCl [Zofran] 4 mg tablet 4 mg PO Q6H PRN (Reason: nausea and vomiting) Qty: 30 2RF Discharge Orders: Discharge Order (Routine); Ordered 07/08/24 Ordered By: Yaneth Demarco Referrals: [facility] - [Outside] - 07/10/24 12:50 pm (Your chair time for Dialysis is 12:50 on Wednesday, Wednesday, Wednesday. Please arrive 30 minutes prior on your 1st treatment to fill out paperwork. ) Funmilayo Horne FNP [Primary Care Provider] - Discharge Diet: As Directed Discharge Activity: Increase activity as tolerated Patient Instructions: Generalized Anxiety Disorder, Type 2 Diabetes, Hypertension, Acute Kidney Injury (GEN), Dialysis Diet (DC), Depression (GEN), GERD (Gastroesophageal Reflux Disease) (GEN), Acute Wound Care (DC), Peripheral Neuropathy (GEN), Hemodialysis (DC), Opioid Safety, Post Anesthesia Care Discharge Attestations Time Spent in Discharge Care*: less than 30 min Status at Discharge: Cognitive status at discharge: cognitively intact , Behavioral status at discharge: cooperative , Quality Metrics Clinical Quality Measures [ No reported AMI, CVA or VTE this stay] Coding Level of Care Code Acute Code for Chg Fwd Diagnoses Acute kidney injury superimposed on chronic kidney disease N17.9; N18.9 Time Spent (min) 15
--- NOTE | 2024-07-08 11:15 | P.PN_ITS ---
Subjective 2 Subjective: Patient seen and examined. The permacath has been used twice successfully for hemodialysis. He has no complaints Vitals/I&O/Wt Last Vital Signs Temp 97.6 F 07/08/24 08:00 Pulse 98 07/08/24 08:00 Resp 15 07/08/24 08:00 BP 145/102 07/08/24 08:00 Pulse Ox 99 07/08/24 08:00 O2 Del Method Room Air 07/08/24 00:00 O2 Flow Rate 2 07/07/24 07:59 07/07/24 07/08/24 07/08/24 22:59 06:59 14:59 Intake Total 220 / 3615 240 / 3855 360 / 360 Output Total 700 / 3700 700 / 4400 Balance -480 / -85 -460 / -545 360 / 360 Weight last 48 hrs Weight 279 lb 1.683 oz Weight 281 lb 15.539 oz Weight 283 lb 1.176 oz Physical Exam 2 Narrative: General: No acute distress, awake alert and oriented x 3 Skin: Insertion site intact without erythema exudate or bleeding Data 07/07/24 03:15 07/08/24 03:32 A&P Assessment and plan (1) Acute kidney injury superimposed on chronic kidney disease: Plan Postoperative day #2 status post right IJ permacath placement No further surgical intervention Medical management per hospitalist General Surgery will sign off. Please reconsult if need arises Attestations 2 Medical Necessity Statement*: Per primary Coding Level of Care Code 37596 Diagnoses Acute kidney injury superimposed on chronic kidney disease N17.9; N18.9
[2024-07-08 11:22] LABS: Glucose Point of Care 150 mg/dL (70-110)
--- NOTE | 2024-07-08 12:50 | PC.NURSE ---
Patient leaving unit to dialysis.
--- NOTE | 2024-07-08 13:23 | PC.HD ---
Heparin 1000 units loading dose administered at 1305 via venous port of HD catheter per human resources technician's orders. Upon treatment initiation, patient's BP was noted to be 205/96. Primary RN notified; requested antihypertensives if available/due.
--- NOTE | 2024-07-08 13:40 | PC.NURSE ---
Maria Luz, dialysis nurse called and said that patients blood pressure was 205/96, nurse was wondering if he had something we could give him to bring that down. He is due for hydralazine at 1500 and that was given.
--- NOTE | 2024-07-08 15:00 | PC.NURSE ---
Mr Dimas, he is up in dialysis since about 1220. His blood pressure has been elevated so, I gave him his 1500 hydralazine 50mg at 1322. Maria Luz from dialysis called me again and said that his blood pressure has not gone down. the last one was 194/130. Any new orders? Provider ordered hydralazine 10mg IVP once, now.
[2024-07-08] MEDS: hyDRALAzine 20 mg/mL INJ 1 mL 10 MG IVP (15:06)
--- NOTE | 2024-07-08 16:39 | PC.NURSE ---
Patient returned to unit from dialysis.
[2024-07-08] MEDS: hyDRALAzine 25 mg Tablet PO (16:45)
[2024-07-08] MEDS: ALPRAZolam 0.5 mg Tablet PO ×2 (17:05→23:07)
--- NOTE | 2024-07-08 17:09 | PC.NURSE ---
he just returned from dialysis. His current BP is 192/105, HR 100. Provider order hydralazine.
--- NOTE | 2024-07-08 17:12 | PC.NURSE ---
his xanax 0.5mg PO TID PRN has been discontinued. Can it be reordered? Provider ordered Xanax 0.5mg PO TID PRN.
[2024-07-08 17:35] LABS: Glucose Point of Care 94 mg/dL (70-110)
--- NOTE | 2024-07-08 18:29 | ECG_ITS ---
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 Measurements Intervals [place] Rate: 99 P: 45 ME: 186 QRS: -19 QRSD: 92 T: 110 QT: 369 QTc: 475 Interpretive Statements SINUS RHYTHM MINIMAL VOLTAGE CRITERIA FOR LVH, CONSIDER NORMAL VARIANT [MEETS CRITERIA IN ONE OF: R(aVL), S(V1), R(V5), R(V5/V6)+S(V1)] SEPTAL MYOCARDIAL INFARCTION , OF INDETERMINATE AGE [40+ ms Q WAVE IN V1/V2] MODERATE T-WAVE ABNORMALITY, CONSIDER LATERAL ISCHEMIA [-0.1+ mV T-WAVE IN I/aVL/V5/V6] Compared to ECG 09/06/2018 09:53:53 Myocardial infarct finding now present Possible ischemia now present T-wave abnormality still present Electronically Signed On 07-10-2024 18:50:45 CDT by Damaso Rivera M.D. [id number]
--- NOTE | 2024-07-08 18:32 | P.PN_ITS ---
Subjective 2 Subjective: Seen him at bedside today. He continues to have systolic blood pressure in 190s. He has been high all throughout his hemodialysis session. Was also complaining of chest pain initially at the start of hemodialysis. Medications: Reviewed: Yes Vitals/I&O/Wt Last Vital Signs Temp 98.2 F 07/08/24 16:18 Pulse 100 07/08/24 16:40 Resp 15 07/08/24 16:40 BP 192/105 07/08/24 16:40 Pulse Ox 98 07/08/24 16:40 O2 Del Method Room Air 07/08/24 16:40 O2 Flow Rate 2 07/07/24 07:59 07/08/24 07/08/24 07/08/24 06:59 14:59 22:59 Intake Total 240 / 3855 960 / 960 500 / 1460 Output Total 700 / 4400 3000 / 3000 Balance -460 / -545 960 / 960 -2500 / -1540 Weight last 48 hrs Weight 126.5 kg Weight 159 kg Weight 126.6 kg Weight 127.9 kg Physical Exam 2 Narrative: He is alert awake oriented x 3, obese, not in acute distress but seems highly anxious. Chest clear to auscultation bilaterally, HD catheter in place, no signs of active bleeding or infection seen. Cardiovascular normal heart sounds Abdomen NAD Extremities no edema noted bilateral lower extremity Data 07/09/24 00:36 07/09/24 00:36 A&P Assessment and plan (1) Acute kidney injury superimposed on chronic kidney disease: (2) Diabetes mellitus: (3) Hypertension: (4) Peripheral neuropathy: (5) Morbid obesity: (6) Generalized anxiety disorder: (7) Major depressive disorder, recurrent severe without psychotic features: (8) GERD (gastroesophageal reflux disease): Plan Abimael Cochran is a 54 year old male with past medical history of uncontrolled hypertension, hyperlipidemia, major depressive disorder, generalized anxiety disorder, chronic low back pain, type 2 diabetes mellitus was referred by primary care physician for abnormal labs and found to have creatinine of 6.9, potassium of 3.0, BUN 49. Admit to CSU Acute on chronic kidney disease- Nephrology consulted in ED Plan for hydration with IV fluids at 125cc/hr Follow up nephrology for further recommendations. Follow-up renal ultrasound Uncontrolled hypertension-systolic blood pressure in high 190s Also has component of anxiety, hence will do Xanax 0.5 mg 3 times daily as needed Captopril, diltiazem and metoprolol on hold secondary to Tommie Continue Coreg 12.5 mg twice daily, hydralazine 50 mg 3 times daily and nifedipine ER 30 mg daily as per nephrology. Monitor for now. Continue aspirin and Lipitor Type 2 diabetes mellitus-will continue with insulin glargine 60 units twice daily Monitor fingersticks 3 times daily with meals and bedtime Major depressive disorder/RODERICK-continue [place]ER Cymbalta, Zoloft, trazodone and Rexulti Chronic low back pain-continue [place] pregabalin GI prophylaxis with IV Pepcid DVT prophylaxis with SCD N.p.o. for now for possible HD catheter later today. 07/05-creatinine still 6.7 today. Spoke with nephrology, wants to monitor for 1 more day. In view of normal renal ultrasound, normal potassium levels, patient not uremic, as per nephrology patient can have an outpatient kidney biopsy and further intervention if needed. Blood pressure better controlled on current regimen. Will continue to monitor. 07/06-creatinine trending up to 7.3 today. Spoke with nephrology plan for permacath and initiation of hemodialysis. Surgery consulted. N.p.o. for procedure for now. Will continue Coreg, hydralazine and nifedipine for blood pressure control. Patient educated and counseled about plan of care.Had low sugars overnight, hence will change lantus to daily for now. 07/07-he received hemodialysis this morning. Creatinine trending down to 6.2 today. Blood pressure improved post dialysis, 148/82 on Coreg, hydralazine and nifedipine. Will continue to monitor and follow-up nephrology for further recommendations. 07/08-was plan to discharge today after hemodialysis but was found to have systolic blood pressure in 190s all throughout the hemodialysis session. Also complained of chest pain initially. Given IV hydralazine 10 mg x 1 with no significant change. Also given p.o. hydralazine 25 mg additional dose with no significant change hence will do Procardia XL 30 mg x 1 dose now. Check EKG and follow up. Attestations 2 Medical Necessity Statement*: He needs continued hospitalization for uncontrolled hypertension and workup for new chest pain with troponin and EKG series. Coding Level of Care Code Acute Code for Chg Fwd Diagnoses Acute kidney injury superimposed on chronic kidney disease N17.9; N18.9 Diabetes mellitus E11.9 Hypertension I10 Peripheral neuropathy G62.9 Morbid obesity E66.01 Generalized anxiety disorder F41.1 Major depressive disorder, recurrent severe without psychotic features F33.2 GERD (gastroesophageal reflux disease) K21.9
[2024-07-08 19:31] LABS: Troponin(5th) Baseline 118 ng/L (0-15)
--- NOTE | 2024-07-08 19:45 | P.EN_ITS ---
Event Note Event Note: Received notification that he was having chest discomfort with dialysis. He describes it as chest getting tight, he has also been hypertensive and received several antihypertensives so far including IV hydralazine, p.o. hydralazine, carvedilol and a dose of nifedipine 30 minutes ago. So far his blood pressure still elevated, 202/107 at the moment. He is no longer having chest pain. Troponin and EKG were obtained, baseline troponin 118. No priors available. He has history of smoking, DM2, HTN, HLD, currently MIRANDA, last stress test he had was 10 years ago. Complete troponin EKG series, assess for possible demand ischemia versus NSTEMI. He is on aspirin, beta-twyla and statin. Continue. With uncontrolled resistant, hypertension will start nitroglycerin drip. Discussed with nursing staff for now target blood pressure 160-170 systolic, subsequently with further slow optimization. Discussed with him to let us know in case he develops headache. Discussed with him consideration of anticoagulation in case of NSTEMI, he denies any issues with bleeding, no active or past bleeding, hematochezia, melena, hematuria, etc. Will obtain echocardiogram. He would benefit from further workup of progressed underlying heart disease with demand ischemia versus NSTEMI. Depending on further findings on troponin levels, his condition, echocardiographic findings, additional assessment could include stress test prior to discharge as opposed to cardiology consultation and coronary gavin ography depending on the above. He states in case of a stress test, states he could not do a treadmill test would have to have a chemical one.
[2024-07-08] MEDS: nitroglycerin drip 50 MG/250 ML PREMIX IV (20:04)
[2024-07-08 20:17] LABS: Glucose Point of Care 138 mg/dL (70-110)
[2024-07-08] MEDS: trazodone 100 mg Tablet 400 MG PO (20:24)
[2024-07-08] MEDS: insulin glargine 100 units/1 mL 40 UNIT SUBCUT (20:35)
--- NOTE | 2024-07-08 20:51 | ECG_ITS ---
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 Measurements Intervals [place] Rate: 96 P: 41 MN: 182 QRS: -4 QRSD: 92 T: 119 QT: 376 QTc: 477 Interpretive Statements SINUS RHYTHM SEPTAL MYOCARDIAL INFARCTION , OF INDETERMINATE AGE [40+ ms Q WAVE IN V1/V2] MODERATE T-WAVE ABNORMALITY, CONSIDER LATERAL ISCHEMIA [-0.1+ mV T-WAVE IN I/aVL/V5/V6] Compared to ECG 07/08/2024 18:29:52 No significant changes Electronically Signed On 07-10-2024 18:58:43 CDT by Damaso Rivera M.D. [id number]
[2024-07-08 21:08] LABS: Troponin 5 2HR Delta -0.8 ABS# (0-10)
[2024-07-08 21:11] LABS: Troponin 5 2HR 117.2 ng/L (0-15)
[2024-07-09] VITALS (27 sets, daily range): BP systolic 148–200; BP diastolic 73–107; PULSE 81–102; RESP 12–24; TEMP 36.6–37.1; O2SAT 92–100
[2024-07-09 01:03] LABS: Troponin 5 6HR Delta 5.9 ng/L (0-12)
[2024-07-09 01:10] LABS: Troponin 5 6HR 123.9 ng/L (0-15)
--- NOTE | 2024-07-09 01:10 | ECG_ITS ---
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 Measurements Intervals [place] Rate: 94 P: 46 SD: 169 QRS: -25 QRSD: 96 T: 114 QT: 393 QTc: 493 Interpretive Statements SINUS RHYTHM LEFT VENTRICULAR HYPERTROPHY AND ST-T CHANGE [VOLTAGE CRITERIA PLUS ST/T ABNORMALITY] POSSIBLE SEPTAL MYOCARDIAL INFARCTION , OF INDETERMINATE AGE [30 ms Q WAVE IN V1/V2] Compared to ECG 07/08/2024 21:58:24 Left ventricular hypertrophy now present ST (T wave) deviation now present T-wave abnormality no longer present Possible ischemia no longer present Myocardial infarct finding still present Electronically Signed On 07-10-2024 18:58:15 CDT by Damaso Rivera M.D. [id number]
[2024-07-09 01:17] LABS: Glucose Point of Care 91 mg/dL (70-110)
[2024-07-09] MEDS: famotidine 20 mg/2 mL INJ IVP ×2 (03:02→13:22)
--- NOTE | 2024-07-09 03:31 | XRR_ITS ---
PROCEDURE INFORMATION: Exam: XR Chest Exam date and time: 07/09/2024 5:04 AM Age: 54 years old Clinical indication: Shortness of breath; Prior surgery; Surgery date: 3-7 days post-operative; Surgery type: Permacath placement; Additional info: Cvc TECHNIQUE: Imaging protocol: Radiologic exam of the chest. Views: 1 view. COMPARISON: CR XR chest 1V portable [id number] 07/06/2024 1:23 PM FINDINGS: Tubes, catheters and devices: Dual-lumen catheter seen on the right with tips overlying the SVC. Lungs: Unremarkable. No consolidation. Pleural spaces: Unremarkable. No pleural effusion. No pneumothorax. Heart/Mediastinum: Unremarkable. No cardiomegaly. Bones/joints: Unremarkable. XR/XR chest 1V portable [id number] IMPRESSION: 1. No acute cardiopulmonary findings.
--- NOTE | 2024-07-09 06:00 | ECG_ITS ---
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 Measurements Intervals [place] Rate: 97 P: 42 IL: 175 QRS: -26 QRSD: 93 T: 92 QT: 377 QTc: 479 Interpretive Statements SINUS RHYTHM MODERATE VOLTAGE CRITERIA FOR LVH, CONSIDER NORMAL VARIANT [MEETS CRITERIA IN ONE OF: R(aVL), S(V1), R(V5), R(V5/V6)+S(V1)] POSSIBLE SEPTAL MYOCARDIAL INFARCTION , OF INDETERMINATE AGE [30 ms Q WAVE IN V1/V2] Compared to ECG 07/09/2024 01:10:23 ST (T wave) deviation no longer present Myocardial infarct finding still present Electronically Signed On 07-10-2024 18:57:19 CDT by Damaso Rivera M.D. [id number]
[2024-07-09 06:06] LABS: Basophils # 0.1 10^3/uL (0.0-0.1); Basophils % 1.2 %; Eosinophils # 0.2 10^3/uL (0.0-0.8); Eosinophils % 3.4 %; Hematocrit 32.1 % (37-53); Lymphocytes # 1.1 10^3/uL (0.8-4.8); Mean Corpuscular HGB Conc 32.4 g/dL (30-55); Mean Corpuscular Hemoglobin 27.4 pg (27-33); Mean Corpuscular Volume 84.5 fl (82-101); Mean Platelet Volume 11.1 fL (7.4-10.4); Monocytes # 0.5 10^3/uL (0.2-0.9); Monocytes % 7.4 %; Neutrophils # 4.85 10^3/uL (1.8-7.7); Neutrophils % 71.7 %; Nucleated Red Blood Cells % 0 %; Platelet Count 166 10^3/cmm (157-399); Red Cell Distribution Width 13.9 % (12.1-15.1); White Blood Count 6.76 10^3/uL (3.29-11.43)
[2024-07-09 06:26] LABS: Alanine Aminotransferase < 5 U/L (0-41); Albumin Level 3.1 g/dL (3.5-5.2); Alkaline Phosphatase 62 U/L (40-130); Anion Gap 12.5 (5-19); Aspartate Amino Transferase 15 U/L (0-40); Blood Urea Nitrogen 23 mg/dL (6-20); Calcium 7.7 mg/dL (8.5-10.5); Carbon Dioxide 26 mmol/L (22-29); Chloride 103 mmol/L (98-107); Creatinine Clr Calc Pharmacy 29.7038; Globulin 2.1 g/dL (1.3-4.6); Glomerular Filtration Rate 15.3 mL/min (90-130); Glucose 98 mg/dL (65-115); Osmolality Calculated 290 mOsm/kg (285-295); Potassium 3.5 mmol/L (3.5-5.1); Sodium 138 mmol/L (136-145); Total Bilirubin 0.2 mg/dL (0.15-1.2); Total Protein 5.2 g/dL (6.6-8.7)
[2024-07-09 06:35] LABS: Glucose Point of Care 88 mg/dL (70-110)
[2024-07-09] MEDS: sertraline 100 mg Tablet 200 MG PO (08:30)
[2024-07-09] MEDS: NIFEdipine ER (24 hr) 30 mg Tablet PO (08:30)
[2024-07-09] MEDS: duloxetine 60 mg Capsule 120 MG PO (08:31)
[2024-07-09] MEDS: carvedilol 12.5 mg Tablet PO ×2 (08:31→18:25)
[2024-07-09] MEDS: tamsulosin 0.4 mg Capsule PO (08:31)
[2024-07-09] MEDS: atorvastatin 40 mg Tablet PO (08:31)
[2024-07-09] MEDS: HYDROcodone-acetaminophen 7.5-325 mg Tablet 1 TAB PO (08:31)
[2024-07-09] MEDS: hyDRALAzine 50 mg Tablet PO (08:31)
[2024-07-09] MEDS: aspirin 81 mg EC Tablet PO (08:31)
--- NOTE | 2024-07-09 10:57 | PC.NURSE ---
Decreased nitroglycerin due to blood pressures reading slightly lower and due to patient's complaint of headache while waiting on doctor to write an order for something for it as the patient does not take acetaminophen.
[2024-07-09] MEDS: ALPRAZolam 0.5 mg Tablet PO ×2 (12:15→21:06)
[2024-07-09] MEDS: acetaminophen 325 mg Tablet 650 MG PO (12:15)
--- NOTE | 2024-07-09 12:22 | P.PN_ITS ---
Subjective 2 Subjective: denies any complaints Discharge post poned due to high BPs Medications: Reviewed: Yes Vitals/I&O/Wt Last Vital Signs Temp 97.8 F 07/09/24 07:31 Pulse 90 07/09/24 07:31 Resp 14 07/09/24 07:31 BP 158/107 07/09/24 07:31 Pulse Ox 97 07/09/24 07:31 O2 Del Method Nasal Cannula 07/09/24 07:31 O2 Flow Rate 2 07/09/24 07:31 07/08/24 07/09/24 07/09/24 22:59 06:59 14:59 Intake Total 626.35 / 1586.35 480.825 / 2067.175 1030.475 / 1030.475 Output Total 3500 / 3500 700 / 4200 Balance -2873.65 / -1913.65 -219.175 / -2132.825 1030.475 / 1030.475 Weight last 48 hrs Weight 124.7 kg Weight 126.5 kg Weight 159 kg Weight 126.6 kg Physical Exam 2 Narrative: Patient is awake alert, no distress and on room air HEENT S1-S2 regular rate and rhythm per report Lungs clear per report has pedal edema Data 07/09/24 00:36 07/09/24 00:36 A&P Assessment and plan (1) Acute kidney injury superimposed on chronic kidney disease: 1. Acute on chronic kidney disease: Last creatinine known was October and creatinine was 3.4. I suspect patient has progression of CKD due to poorly controlled hypertension but may have a component of MIRANDA as well., getting IV fluidbut no improvement in renal fxn yet . Cr remains high , plan for inititation of HD --> pt agreed - s/p tunnelled catheter placement and started HD , om MWF schedule Will also order UA urine protein to creatinine ratio, other serologies- PENDING -will benefit from renal biopsy-can be done as outpatient . - Also he wants to switch to PD at a later time 2. Hypertension: Poorly controlled on presentation , started on Coreg nifedipine and hydralazine-titrating doses 3. Hypokalemia: Monitor, repleted 4. History of diabetes Patient evaluated using audiovisual cart. Time spent 40 minutes. Plan per oscar Attestations 2 Medical Necessity Statement*: per medicine Coding Level of Care Code Acute Code for Chg Fwd Diagnoses Acute kidney injury superimposed on chronic kidney disease N17.9; N18.9
--- NOTE | 2024-07-09 12:52 | PC.NURSE ---
Dr Murillo called via telenephrology cart and ordered patient's nitro gtt be turned to 60 to bring down blood pressure. Blood pressure currently 167/73 iwth nitro at 60 and patient's pain (headache) assessed as a [address] Hughes did give permission to give patient tylenol, even though patient was told it would hurt his kidneys. Nurse informed patient that tylenol is more harmful to the liver. Dr Hughes also ordered 75mg of hydralizine to be given.
[2024-07-09] MEDS: hyDRALAzine 50 mg Tablet 75 MG PO ×3 (13:23→21:06)
--- NOTE | 2024-07-09 13:51 | PM.PN ---
Subjective Subjective: Seen at bedside this morning. Denies any more episodes of chest pain since yesterday afternoon. Denies any complaint of shortness of breath or palpitations. Blood pressure still between 1 70-1 90s. Was started on nitro drip yesterday. Also complained of headache intermittently. Medications: Reviewed: Yes Vitals/I&O/Wt Last Vital Signs Temp 97.9 F 07/09/24 12:00 Pulse 95 07/09/24 12:48 Resp 24 H 07/09/24 12:48 BP 167/73 07/09/24 12:48 Pulse Ox 96 07/09/24 12:48 O2 Del Method Room Air 07/09/24 12:00 O2 Flow Rate 2 07/09/24 07:31 07/08/24 07/09/24 07/09/24 22:59 06:59 14:59 Intake Total 626.35 / 1586.35 480.825 / 2067.175 1280.425 / 1280.425 Output Total 3500 / 3500 700 / 4200 Balance -2873.65 / -1913.65 -219.175 / -2132.825 1280.425 / 1280.425 Weight last 48 hrs Weight 124.7 kg Weight 126.5 kg Weight 159 kg Physical Exam Narrative: He is alert awake oriented x 3, obese, not in acute distress but seems highly anxious. Chest clear to auscultation bilaterally, HD catheter in place, no signs of active bleeding or infection seen. Cardiovascular normal heart sounds Abdomen NAD Extremities no edema noted bilateral lower extremity Data 07/09/24 00:36 07/09/24 00:36 A&P Assessment and plan (1) Acute kidney injury superimposed on chronic kidney disease: (2) Diabetes mellitus: (3) Hypertension: (4) Peripheral neuropathy: (5) Morbid obesity: (6) Generalized anxiety disorder: (7) Major depressive disorder, recurrent severe without psychotic features: (8) GERD (gastroesophageal reflux disease): Plan Abimael Cochran is a 54 year old male with past medical history of uncontrolled hypertension, hyperlipidemia, major depressive disorder, generalized anxiety disorder, chronic low back pain, type 2 diabetes mellitus was referred by primary care physician for abnormal labs and found to have creatinine of 6.9, potassium of 3.0, BUN 49. Admit to CSU Acute on chronic kidney disease- Nephrology consulted in ED Plan for hydration with IV fluids at 125cc/hr Follow up nephrology for further recommendations. Follow-up renal ultrasound Uncontrolled hypertension-systolic blood pressure in high 190s Also has component of anxiety, hence will do Xanax 0.5 mg 3 times daily as needed Captopril, diltiazem and metoprolol on hold secondary to Tommie Continue Coreg 12.5 mg twice daily, hydralazine 50 mg 3 times daily and nifedipine ER 30 mg daily as per nephrology. Monitor for now. 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 for now for possible HD catheter later today. 07/05-creatinine still 6.7 today. Spoke with nephrology, wants to monitor for 1 more day. In view of normal renal ultrasound, normal potassium levels, patient not uremic, as per nephrology patient can have an outpatient kidney biopsy and further intervention if needed. Blood pressure better controlled on current regimen. Will continue to monitor. 07/06-creatinine trending up to 7.3 today. Spoke with nephrology plan for permacath and initiation of hemodialysis. Surgery consulted. N.p.o. for procedure for now. Will continue Coreg, hydralazine and nifedipine for blood pressure control. Patient educated and counseled about plan of care.Had low sugars overnight, hence will change lantus to daily for now. 07/07-he received hemodialysis this morning. Creatinine trending down to 6.2 today. Blood pressure improved post dialysis, 148/82 on Coreg, hydralazine and nifedipine. Will continue to monitor and follow-up nephrology for further recommendations. 07/08-was plan to discharge today after hemodialysis but was found to have systolic blood pressure in 190s all throughout the hemodialysis session. Also complained of chest pain initially. Given IV hydralazine 10 mg x 1 with no significant change. Also given p.o. hydralazine 25 mg additional dose with no significant change hence will do Procardia XL 30 mg x 1 dose now. Check EKG and follow up. 07/09-discharge plan postponed due to uncontrolled hypertension/hypertensive urgency. Blood pressure still between 1 70-1 90s, started on nitro drip yesterday afternoon, continue nitro drip for now. 3 sets of troponins elevated at 118, 117, 123 but EKG did not show ST elevation. Since he is on nitro drip, will plan chemical stress test once blood pressure controlled. No more episodes of chest pain noted. Will do anticoagulation with subcutaneous Lovenox 120 mg daily as per creatinine clearance. Continue Coreg, hydralazine and Procardia for now. Attestations Medical Necessity Statement*: He needs continued hospitalization for management of uncontrolled hypertension/hypertensive urgency with nitroglycerin drip, and NSTEMI with further workup with chemical stress test and cardiology consult if needed. Time Spent in Patient Care: 20 minutes Coding Level of Care Code Acute Code for g Fwd Diagnoses Acute kidney injury superimposed on chronic kidney disease N17.9; N18.9 Diabetes mellitus E11.9 Hypertension I10 Peripheral neuropathy G62.9 Morbid obesity E66.01 Generalized anxiety disorder F41.1 Major depressive disorder, recurrent severe without psychotic features F33.2 GERD (gastroesophageal reflux disease) K21.9 Time Spent (min) 20
[2024-07-09] MEDS: enoxaparin 120 mg/0.8 mL Syringe SUBCUT (15:22)
[2024-07-09 16:49] LABS: Glucose Point of Care 160 mg/dL (70-110)
[2024-07-09] MEDS: nitroglycerin drip 50 MG/250 ML PREMIX 13.5 MG IV (18:29)
--- NOTE | 2024-07-09 19:52 | USCV_ITS ---
Abimael Cochran Age: 54 Gender: M : 1970 Exam Date: 07/09/2024 09:24 Ordering Phys: Anthony Talamantes MD Technologist: Trent Tan [place] [facility] [place]: chest tightness BP: 158 / 107 HR: 91 Rhythm: Sinus Technical Quality: Adequate MEASUREMENTS (Male / Female) Normal Values 2D ECHO LV Diastolic Diameter PLAX 4.1 cm 4.2 - 5.9 / 3.9 - 5.3 cm IVS Diastolic Thickness 1.7 cm 0.6 - 1.0 / 0.6 - 0.9 cm IVS Systolic Thickness 1.6 cm LVPW Diastolic Thickness 2.1 cm 0.6 - 1.0 / 0.6 - 0.9 cm LVPW Systolic Thickness 3.5 cm LVOT Diameter 2.3 cm LV Ejection Fraction 2D Teich 69.6 % LV Ejection Fraction MOD 4C 61.8 % LV Ejection Fraction MOD 2C 53.9 % LV Ejection Fraction 2C AL 55.4 % LA Diameter 4.6 cm RA Systolic Volume 4C AL 44.2 ml RA Systolic Volume 4C MOD 45.4 ml LA Sys Volume AL 58.3 cm cubed LA Sys Volume Index AL 22.3 cm cubed/m squared Aorta at Sinotubular Diameter 2.4 cm IVC Diameter 1.8 cm M-MODE LA Ao Ratio MM 1.2 AV Cusp Separation MM 2.8 cm DOPPLER AV Peak Velocity 145.0 cm/s LVOT Peak Velocity 133.0 cm/s AV Area Cont Eq vti 2.5 cm squared AV Area Cont Eq pk 3.6 cm squared MV Peak Velocity 139.0 cm/s MV Area PHT 22.4 cm squared Mitral E to A Ratio 0.7 TV Peak Velocity 135.5 cm/s TR Peak Velocity 140.0 cm/s TR Peak Gradient 7.8 mmHg TR Mean Velocity 102.0 cm/s TR Mean Gradient 5.1 mmHg TR Velocity Time Integral 24.0 cm PV Peak Velocity 154.0 cm/s RV Ejection Time 0.3 s FINDINGS Left Ventricle Left ventricle is normal size. LV systolic function is normal with EF of 55 to 60%. No regional wall motion abnormalities are seen. Grade 1 diastolic dysfunction. Moderate left ventricular hypertrophy. Right Ventricle Normal in size and function Right Atrium Normal in size Left Atrium Normal in size Mitral Valve Structurally normal mitral valve. Mild mitral regurgitation. Aortic Valve Structurally normal aortic valve. No stenosis or regurgitation Tricuspid Valve Mild tricuspid regurgitation. Pulmonary artery systolic function is normal. Pulmonic Valve Not well visualized Pericardium Normal Aorta Normal in size IVC Appears to be normal CONCLUSIONS LV systolic function is normal with EF of 55 to 60%. Grade 1 diastolic dysfunction. Moderate LVH Mild mitral regurgitation Mild tricuspid regurgitation Damaso Rivera MD (Electronically Signed) Final Date: 09 July 2024 10:56 S
[2024-07-09 20:45] LABS: Glucose Point of Care 126 mg/dL (70-110)
[2024-07-09] MEDS: insulin glargine 100 units/1 mL 40 UNIT SUBCUT (21:05)
[2024-07-09] MEDS: trazodone 100 mg Tablet 400 MG PO (21:06)
--- NOTE | 2024-07-09 22:30 | PC.NURSE ---
pt refused all 40 units of lantus. allowed nurse to give 20 units.
[2024-07-10] VITALS (11 sets, daily range): BP systolic 121–172; BP diastolic 68–98; PULSE 80–102; RESP 16–20; TEMP 36.7–36.9; O2SAT 93–98
[2024-07-10 01:00] LABS: Glucose Point of Care 128 mg/dL (70-110)
[2024-07-10] MEDS: famotidine 20 mg/2 mL INJ IVP ×2 (03:08→13:39)
[2024-07-10] MEDS: acetaminophen 325 mg Tablet 650 MG PO (03:11)
[2024-07-10 03:54] LABS: Basophils # 0.1 10^3/uL (0.0-0.1); Basophils % 0.5 %; Eosinophils # 0.2 10^3/uL (0.0-0.8); Eosinophils % 1.4 %; Hematocrit 30.1 % (37-53); Lymphocytes # 0.9 10^3/uL (0.8-4.8); Lymphocytes % 7.3 %; Mean Corpuscular HGB Conc 31.6 g/dL (30-55); Mean Corpuscular Hemoglobin 26.9 pg (27-33); Mean Corpuscular Volume 85.3 fl (82-101); Monocytes # 0.8 10^3/uL (0.2-0.9); Monocytes % 6.4 %; Neutrophils # 10.17 10^3/uL (1.8-7.7); Nucleated Red Blood Cells % 0 %; Platelet Count 175 10^3/cmm (157-399); Red Blood Count 3.53 10^6/uL (3.85-5.65); Red Cell Distribution Width 13.5 % (12.1-15.1); White Blood Count 12.11 10^3/uL (3.29-11.43)
[2024-07-10 04:14] LABS: Alanine Aminotransferase < 5 U/L (0-41); Alkaline Phosphatase 59 U/L (40-130); Aspartate Amino Transferase 15 U/L (0-40); Blood Urea Nitrogen 36 mg/dL (6-20); Calcium 7.7 mg/dL (8.5-10.5); Carbon Dioxide 24 mmol/L (22-29); Chloride 101 mmol/L (98-107); Globulin 2.1 g/dL (1.3-4.6); Glomerular Filtration Rate 11.4 mL/min (90-130); Glucose 98 mg/dL (65-115); Osmolality Calculated 288 mOsm/kg (285-295); Sodium 135 mmol/L (136-145); Total Bilirubin 0.3 mg/dL (0.15-1.2); Total Protein 5.1 g/dL (6.6-8.7)
[2024-07-10 04:15] LABS: Creatinine Clr Calc Pharmacy 24.2224
[2024-07-10 04:16] LABS: Anion Gap 14.1 (5-19); Potassium 4.1 mmol/L (3.5-5.1)
[2024-07-10 05:13] LABS: Glucose Point of Care 106 mg/dL (70-110)
--- NOTE | 2024-07-10 07:30 | PM.PN ---
Subjective Subjective: Patient was seen and examined. Patient has been on dialysis. Patient remains on a nitro drip. Patient has no nausea or vomiting. Decreasing edema. Rest review of systems within normal limits. Medications: Reviewed: Yes Medication Review Details: Current Medications Acetaminophen (Acetaminophen 325 Mg Tablet) 650 mg PO Q4H PRN PRN Reason: MILD PAIN OR INCREASE TEMP Last Admin: 07/10/24 03:11 Dose: 650 mg Hydrocodone Bitart/Acetaminophen (Hydrocodone-Acetaminophen 7.5-325 Mg Tablet) 1 tab PO Q4H PRN PRN Reason: MODERATE PAIN Last Admin: 07/09/24 08:31 Dose: 1 tab Albuterol Sulfate (Albuterol 2.5 Mg/3 Ml Neb) 2.5 mg INHALATION ONCE PRN PRN Reason: WHEEZING Alprazolam (Alprazolam 0.5 Mg Tablet) 0.5 mg PO TID PRN PRN Reason: ANXIETY Last Admin: 07/09/24 21:06 Dose: 0.5 mg Aspirin (Aspirin 81 Mg Ec Tablet) 81 mg PO DAILY [facility] Last Admin: 07/09/24 08:31 Dose: 81 mg Atorvastatin Calcium (Atorvastatin 40 Mg Tablet) 40 mg PO DAILY [facility] Last Admin: 07/09/24 08:31 Dose: 40 mg Carvedilol (Carvedilol 12.5 Mg Tablet) 12.5 mg PO BID [facility] Last Admin: 07/09/24 18:25 Dose: 12.5 mg Duloxetine HCl (Duloxetine 60 Mg Capsule) 120 mg PO DAILY [facility] Last Admin: 07/09/24 08:31 Dose: 120 mg Enoxaparin Sodium (Enoxaparin 120 Mg/0.8 Ml Syringe) 120 mg SUBCUT Q24H [facility] Last Admin: 07/09/24 15:22 Dose: 120 mg Famotidine (Famotidine 20 Mg/2 Ml Inj) 20 mg IVP Q12H [facility] Last Admin: 07/10/24 03:08 Dose: 20 mg Famotidine (Famotidine 20 Mg/2 Ml Inj) 20 mg IVP ONCE PRN PRN Reason: HEARTBURN Fentanyl (Fentanyl 50 Mcg/Ml Inj 2ml) 50 mcg IVP Q10M PRN PRN Reason: Preop Pain Fentanyl (Fentanyl 50 Mcg/Ml Inj 2ml) 100 mcg IVP ONCE PRN PRN Reason: Per anesthesia for block Glucagon (Glucagon 1 Mg/Ml Kit 1 Ml) 1 mg IM ONCE PRN; Protocol PRN Reason: Adult Acute Hypoglycemia Nursing Prot. Hydralazine HCl (Hydralazine 50 Mg Tablet) 75 mg PO TID [facility] Last Admin: 07/09/24 21:06 Dose: 75 mg Dextrose (D5w) 500 mls @ 0 mls/hr IV ONCE PRN; Protocol PRN Reason: Adult Acute Hypoglycemia Prot Dextrose (D10w) 125 mls @ 750 mls/hr IV PRN PRN; Protocol PRN Reason: Adult Acute Hypoglycemia Nursing Protocol Dextrose (D10w) 250 mls @ 1,000 mls/hr IV PRN PRN; Protocol PRN Reason: Adult Acute Hypoglycemia Nursing Protocol Sodium Chloride (Sodium Chloride 0.9%) 1,000 mls @ 0 mls/hr IV .Q0M PRN PRN Reason: hypotension or symptomatic Sodium Chloride (Sodium Chloride 0.9%) 1,000 mls @ 0 mls/hr IV .Q0M PRN PRN Reason: hypotension or symptomatic Sodium Chloride (Sodium Chloride 0.9%) 1,000 mls @ 0 mls/hr IV .Q0M PRN PRN Reason: hypotension or symptomatic Nitroglycerin/Dextrose (Nitroglycerin Drip) 50 mg in 250 mls @ 0 mls/hr IV .Q0M ISABEL; Protocol Last Admin: 07/09/24 18:29 Dose: 45 mcg/min, 13.5 mls/hr Sodium Chloride (Sodium Chloride 0.9%) 1,000 mls @ 0 mls/hr IV .Q0M PRN PRN Reason: hypotension or symptomatic Albumin Human (Albumin) 12.5 gm in 50 mls @ 60 mls/hr IV PRN PRN PRN Reason: Hypotension and/or symptomatic Insulin Glargine (Insulin Glargine 100 Units/1 Ml) 40 unit SUBCUT DAILY [facility] Insulin Glargine (Insulin Glargine 100 Units/1 Ml) 40 unit SUBCUT BEDTIME [facility] Last Admin: 07/09/24 21:05 Dose: 40 unit Ipratropium [place] (Ipratropium 0.5 Mg/2.5 Ml Neb) 0.5 mg INHALATION ONCE PRN PRN Reason: WHEEZING Metoclopramide HCl (Metoclopramide 5 Mg/Ml Sdv 2 Ml) 10 mg IVP ONCE PRN PRN Reason: N/V if zofran ineffective Midazolam HCl (Midazolam 1 Mg/Ml Inj 2 Ml) 2 mg IVP Q5M PRN PRN Reason: Preop Anxiety Midazolam HCl (Midazolam 1 Mg/Ml Inj 5 Ml) 5 mg IVP ONCE PRN PRN Reason: Per anesthesia for block Nifedipine (Nifedipine Er (24 Hr) 30 Mg Tablet) 60 mg PO DAILY [facility] Ondansetron HCl (Ondansetron 2 Mg/Ml Sdv 2 Ml) 4 mg IVP Q5M PRN PRN Reason: NAUSEA AND VOMITING Scopolamine (Scopolamine 1.5 Patch) 1 patch TRANSDERMA ONCE PRN PRN Reason: Nausea/ Vomiting Prophylaxis Sertraline HCl (Sertraline 100 Mg Tablet) 200 mg PO DAILY [facility] Last Admin: 07/09/24 08:30 Dose: 200 mg Tamsulosin HCl (Tamsulosin 0.4 Mg Capsule) 0.4 mg PO DAILY [facility] Last Admin: 07/09/24 08:31 Dose: 0.4 mg Terazosin HCl (Terazosin 1 Mg Capsule) 1 mg PO DAILY [facility] Last Admin: 07/09/24 08:31 Dose: 1 mg Trazodone HCl (Trazodone 100 Mg Tablet) 400 mg PO BEDTIME PRN PRN Reason: insomnia Last Admin: 07/09/24 21:06 Dose: 400 mg Vitals/I&O/Wt Last Vital Signs Temp 98.5 F 07/10/24 07:27 Pulse 87 07/10/24 07:27 Resp 18 07/10/24 07:27 BP 166/95 07/10/24 07:27 Pulse Ox 94 07/10/24 07:27 O2 Del Method Room Air 07/10/24 07:27 O2 Flow Rate 2 07/09/24 07:31 07/09/24 07/10/24 07/10/24 22:59 06:59 14:59 Intake Total 332.4 / 1612.825 Output Total 700 / 700 400 / 1100 Balance -367.6 / 912.825 -400 / 512.825 Weight last 48 hrs Weight 128.8 kg Weight 124.7 kg Weight 126.5 kg Physical Exam Narrative: Obese man in bed in no apparent distress. On nitro drip. Using oxygen. HEENT normocephalic atraumatic. Neck is supple no JVP. Lungs have dull bases. Heart is regular positive systolic murmur. Abdomen is soft positive bowel sounds. Extremities bilateral edema. Neuro awake alert oriented x 3. Patient has a right IJ permacath. Data 07/10/24 03:18 07/10/24 03:18 A&P Assessment and plan (1) Acute kidney injury superimposed on chronic kidney disease: 54-year-old gentleman with progressive renal insufficiency working diagnosis is diabetic hypertensive nephrosclerosis. Patient is starting dialysis as of is improving. Patient has severe volume overload and hypertension we will see if we can improve blood pressure with volume removal. Plan is for dialysis today for 3 hours to remove 3 L. Can do pure ultrafiltration. Plan dialysis, wean off nitro drip= start an arb Attestations Medical Necessity Statement*: htn urgency, esrd Time Spent in Patient Care: 16 - 35 minutes (>than 50% of time spent in counselling and/or direct pt care on unit). Coding Level of Care Code Acute Code for [facility] Fwd Diagnoses Acute kidney injury superimposed on chronic kidney disease N17.9; N18.9
[2024-07-10 08:09] LABS: Calcium 7.5 mg/dL (8.5-10.5); Ferritin 243 ng/mL (30-400); Iron 16 ug/dL (59-158); Percent Saturation 9.2 % (20-50); Total Iron Binding Capacity 173 mcg/dl; Unsaturated Iron Binding 157 ug/dL (112-347)
[2024-07-10 08:15] LABS: Parathyroid Hormone 316.1 pg/mL (15-65)
[2024-07-10 08:24] LABS: 25 Hydroxy Vitamin D 10 ng/mL (30-100)
[2024-07-10] MEDS: losartan 50 mg Tablet PO (08:27)
[2024-07-10] MEDS: tamsulosin 0.4 mg Capsule PO (08:27)
[2024-07-10] MEDS: sertraline 100 mg Tablet 200 MG PO (08:27)
[2024-07-10] MEDS: duloxetine 60 mg Capsule 120 MG PO (08:27)
[2024-07-10] MEDS: atorvastatin 40 mg Tablet PO (08:27)
[2024-07-10] MEDS: carvedilol 12.5 mg Tablet PO (08:27)
[2024-07-10] MEDS: NIFEdipine ER (24 hr) 30 mg Tablet 60 MG PO (08:28)
[2024-07-10] MEDS: aspirin 81 mg EC Tablet PO (08:28)
[2024-07-10] MEDS: ALPRAZolam 0.5 mg Tablet PO ×2 (08:35→22:04)
--- NOTE | 2024-07-10 11:17 | PC.SOCIAL ---
IMM Updated Updated pt on IMM. No questions voiced. Provided pt a copy. Initialed, dated, & timed copy in chart.
[2024-07-10] MEDS: nitroglycerin drip 50 MG/250 ML PREMIX 12 MG IV (13:39)
--- NOTE | 2024-07-10 13:53 | P.PN_ITS ---
Subjective 2 Subjective: No acute overnight events noted. He denies any more complaint of chest pain or palpitations. Explained to him about plan of care with nitro drip for control of blood pressure and once off drip plan for stress test. Medications: Reviewed: Yes Vitals/I&O/Wt Last Vital Signs Temp 98.3 F 07/10/24 11:23 Pulse 84 07/10/24 11:23 Resp 18 07/10/24 11:23 BP 172/82 07/10/24 11:23 Pulse Ox 98 07/10/24 11:23 O2 Del Method Room Air 07/10/24 11:23 O2 Flow Rate 2 07/09/24 07:31 07/09/24 07/10/24 07/10/24 22:59 06:59 14:59 Intake Total 332.4 / 1612.825 490.000 / 490.000 Output Total 700 / 700 400 / 1100 Balance -367.6 / 912.825 -400 / 512.825 490.000 / 490.000 Weight last 48 hrs Weight 128.8 kg Weight 124.7 kg Weight 126.5 kg Physical Exam 2 Narrative: He is alert awake oriented x 3, obese, not in acute distress but seems highly anxious. Chest clear to auscultation bilaterally, HD catheter in place, no signs of active bleeding or infection seen. Cardiovascular normal heart sounds Abdomen NAD Extremities no edema noted bilateral lower extremity Data 07/10/24 03:18 07/10/24 03:18 A&P Assessment and plan (1) Acute kidney injury superimposed on chronic kidney disease: (2) Diabetes mellitus: (3) Hypertension: (4) Peripheral neuropathy: (5) Morbid obesity: (6) Generalized anxiety disorder: (7) Major depressive disorder, recurrent severe without psychotic features: (8) GERD (gastroesophageal reflux disease): Plan Abimael Cochran is a 54 year old male with past medical history of uncontrolled hypertension, hyperlipidemia, major depressive disorder, generalized anxiety disorder, chronic low back pain, type 2 diabetes mellitus was referred by primary care physician for abnormal labs and found to have creatinine of 6.9, potassium of 3.0, BUN 49. Admit to CSU Acute on chronic kidney disease- Nephrology consulted in ED Plan for hydration with IV fluids at 125cc/hr Follow up nephrology for further recommendations. Follow-up renal ultrasound Uncontrolled hypertension-systolic blood pressure in high 190s Also has component of anxiety, hence will do Xanax 0.5 mg 3 times daily as needed Captopril, diltiazem and metoprolol on hold secondary to Tommie Continue Coreg 12.5 mg twice daily, hydralazine 50 mg 3 times daily and nifedipine ER 30 mg daily as per nephrology. Monitor for now. 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 for now for possible HD catheter later today. 07/05-creatinine still 6.7 today. Spoke with nephrology, wants to monitor for 1 more day. In view of normal renal ultrasound, normal potassium levels, patient not uremic, as per nephrology patient can have an outpatient kidney biopsy and further intervention if needed. Blood pressure better controlled on current regimen. Will continue to monitor. 07/06-creatinine trending up to 7.3 today. Spoke with nephrology plan for permacath and initiation of hemodialysis. Surgery consulted. N.p.o. for procedure for now. Will continue Coreg, hydralazine and nifedipine for blood pressure control. Patient educated and counseled about plan of care.Had low sugars overnight, hence will change lantus to daily for now. 07/07-he received hemodialysis this morning. Creatinine trending down to 6.2 today. Blood pressure improved post dialysis, 148/82 on Coreg, hydralazine and nifedipine. Will continue to monitor and follow-up nephrology for further recommendations. 07/08-was plan to discharge today after hemodialysis but was found to have systolic blood pressure in 190s all throughout the hemodialysis session. Also complained of chest pain initially. Given IV hydralazine 10 mg x 1 with no significant change. Also given p.o. hydralazine 25 mg additional dose with no significant change hence will do Procardia XL 30 mg x 1 dose now. Check EKG and follow up. 07/09-discharge plan postponed due to uncontrolled hypertension/hypertensive urgency. Blood pressure still between 1 70-1 90s, started on nitro drip yesterday afternoon, continue nitro drip for now. 3 sets of troponins elevated at 118, 117, 123 but EKG did not show ST elevation. Since he is on nitro drip, will plan chemical stress test once blood pressure controlled. No more episodes of chest pain noted. Will do anticoagulation with subcutaneous Lovenox 120 mg daily as per creatinine clearance. Continue Coreg, hydralazine and Procardia for now. 07/10-blood pressure still 172/82. Will continue nitro drip. Blood pressure medications adjusted as per nephro, on Coreg 12.5 twice daily, Procardia XL 60 mg daily and Cozaar 50 mg daily. Will increase Coreg to 25 mg twice a day and titrate down nitro drip. Once off nitro drip will plan for stress test. Continue therapeutic Lovenox. Attestations 2 Medical Necessity Statement*: He needs continued hospitalization for management of uncontrolled hypertension/hypertensive urgency with nitroglycerin drip, and NSTEMI with further workup with chemical stress test and cardiology consult if needed. Time Spent in Patient Care: 20 minutes Coding Level of Care Code Acute Code for [facility] Diagnoses Acute kidney injury superimposed on chronic kidney disease N17.9; N18.9 Diabetes mellitus E11.9 Hypertension I10 Peripheral neuropathy G62.9 Morbid obesity E66.01 Generalized anxiety disorder F41.1 Major depressive disorder, recurrent severe without psychotic features F33.2 GERD (gastroesophageal reflux disease) K21.9 Time Spent (min) 20
[2024-07-10 15:45] LABS: THYROID PEROXIDASE ANTIBODIES 1 IU/mL (<9)
[2024-07-10] MEDS: enoxaparin 120 mg/0.8 mL Syringe SUBCUT (15:58)
--- NOTE | 2024-07-10 17:00 | PC.NURSE ---
Patient left unit to dialysis at 1635.
[2024-07-10 17:24] LABS: Glucose Point of Care 250 mg/dL (70-110)
[2024-07-10 17:24] LABS: Glucose Point of Care 182 mg/dL (70-110)
[2024-07-10] MEDS: trazodone 100 mg Tablet 400 MG PO (22:04)
[2024-07-10] MEDS: carvedilol 12.5 mg Tablet 25 MG PO (22:05)
[2024-07-10] MEDS: insulin glargine 100 units/1 mL 40 UNIT SUBCUT (22:08)
[2024-07-11] VITALS (10 sets, daily range): BP systolic 141–200; BP diastolic 81–106; PULSE 74–92; RESP 14–24; TEMP 36.5–36.9; O2SAT 91–99
[2024-07-11] MEDS: famotidine 20 mg/2 mL INJ IVP ×2 (02:37→14:53)
--- NOTE | 2024-07-11 02:45 | PC.NURSE ---
nurse came to pt room to give meds. nurse uncovered pt to find blood covering pts gown. when investigated further, it was discovered the blood was coming from dialysis port in his right chest. dressing completly saturated. pressure dressing applied and nurse to continue to monitor site through the rest of the shift.
[2024-07-11 05:13] LABS: Hematocrit 32.3 % (37-53)
[2024-07-11 05:15] LABS: Alanine Aminotransferase < 5 U/L (0-41); Albumin Level 3.1 g/dL (3.5-5.2); Alkaline Phosphatase 58 U/L (40-130); Anion Gap 12.7 (5-19); Aspartate Amino Transferase 13 U/L (0-40); Blood Urea Nitrogen 27 mg/dL (6-20); Calcium 7.6 mg/dL (8.5-10.5); Carbon Dioxide 29 mmol/L (22-29); Chloride 103 mmol/L (98-107); Creatinine Clr Calc Pharmacy 28.3343; Globulin 2.3 g/dL (1.3-4.6); Glomerular Filtration Rate 13.4 mL/min (90-130); Glucose 105 mg/dL (65-115); Magnesium 2.1 mg/dL (1.7-2.3); Osmolality Calculated 297 mOsm/kg (285-295); Phosphorus 4.1 mg/dL (2.5-4.5); Potassium 3.7 mmol/L (3.5-5.1); Sodium 141 mmol/L (136-145); Total Bilirubin 0.2 mg/dL (0.15-1.2); Total Protein 5.4 g/dL (6.6-8.7)
--- NOTE | 2024-07-11 07:01 | PC.NURSE ---
Dr Garza is called and told that his dialysis catheter is bleeding. Night nurse has place a pressure dressing on the site and it has bleed through. Night nurse is holding pressure now. Provider order TXA 1 gram give now and give another 1 gram in one hour.
[2024-07-11] MEDS: tranexamic acid 1,000 MG/100 ML PREMIX 600 MG IV ×2 (07:20→10:05)
--- NOTE | 2024-07-11 07:31 | PM.PN ---
Subjective Subjective: The patient was seen and examined. Patient is feeling better however still swollen. No headaches no nausea vomiting no chest pain decreased shortness of breath Medications: Reviewed: Yes Medication Review Details: Current Medications Acetaminophen (Acetaminophen 325 Mg Tablet) 650 mg PO Q4H PRN PRN Reason: MILD PAIN OR INCREASE TEMP Last Admin: 07/10/24 03:11 Dose: 650 mg Albuterol Sulfate (Albuterol 2.5 Mg/3 Ml Neb) 2.5 mg INHALATION ONCE PRN PRN Reason: WHEEZING Alprazolam (Alprazolam 0.5 Mg Tablet) 0.5 mg PO TID PRN PRN Reason: ANXIETY Last Admin: 07/10/24 22:04 Dose: 0.5 mg Aspirin (Aspirin 81 Mg Ec Tablet) 81 mg PO DAILY ON LICENSE OF [facility] Last Admin: 07/10/24 08:28 Dose: 81 mg Atorvastatin Calcium (Atorvastatin 40 Mg Tablet) 40 mg PO DAILY ON LICENSE OF [facility] Last Admin: 07/10/24 08:27 Dose: 40 mg Carvedilol (Carvedilol 12.5 Mg Tablet) 25 mg PO BID ON LICENSE OF [facility] Last Admin: 07/10/24 22:05 Dose: 25 mg Duloxetine HCl (Duloxetine 60 Mg Capsule) 120 mg PO DAILY ON LICENSE OF [facility] Last Admin: 07/10/24 08:27 Dose: 120 mg Famotidine (Famotidine 20 Mg/2 Ml Inj) 20 mg IVP Q12H ON LICENSE OF [facility] Last Admin: 07/11/24 02:37 Dose: 20 mg Famotidine (Famotidine 20 Mg/2 Ml Inj) 20 mg IVP ONCE PRN PRN Reason: HEARTBURN Glucagon (Glucagon 1 Mg/Ml Kit 1 Ml) 1 mg IM ONCE PRN; Protocol PRN Reason: Adult Acute Hypoglycemia Nursing Prot. Dextrose (D5w) 500 mls @ 0 mls/hr IV ONCE PRN; Protocol PRN Reason: Adult Acute Hypoglycemia Prot Dextrose (D10w) 125 mls @ 750 mls/hr IV PRN PRN; Protocol PRN Reason: Adult Acute Hypoglycemia Nursing Protocol Dextrose (D10w) 250 mls @ 1,000 mls/hr IV PRN PRN; Protocol PRN Reason: Adult Acute Hypoglycemia Nursing Protocol Sodium Chloride (Sodium Chloride 0.9%) 1,000 mls @ 0 mls/hr IV .Q0M PRN PRN Reason: hypotension or symptomatic Nitroglycerin/Dextrose (Nitroglycerin Drip) 50 mg in 250 mls @ 0 mls/hr IV .Q0M ON LICENSE OF [facility]; Protocol Last Titration: 07/11/24 05:03 Dose: 10 mcg/min, 3 mls/hr Albumin Human (Albumin) 12.5 gm in 50 mls @ 60 mls/hr IV PRN PRN PRN Reason: Hypotension and/or symptomatic Tranexamic Acid (Tranexamic Acid) 1,000 mg in 100 mls @ 600 mls/hr IV Q1H PRN PRN Reason: BLEEDING Last Admin: 07/11/24 07:20 Dose: 600 mls/hr Insulin Glargine (Insulin Glargine 100 Units/1 Ml) 40 unit SUBCUT DAILY ON LICENSE OF [facility] Insulin Glargine (Insulin Glargine 100 Units/1 Ml) 40 unit SUBCUT BEDTIME ON LICENSE OF [facility] Last Admin: 07/10/24 22:08 Dose: 40 unit Ipratropium [place] (Ipratropium 0.5 Mg/2.5 Ml Neb) 0.5 mg INHALATION ONCE PRN PRN Reason: WHEEZING Losartan Potassium (Losartan 50 Mg Tablet) 50 mg PO DAILY ON LICENSE OF [facility] Last Admin: 07/10/24 08:27 Dose: 50 mg Metoclopramide HCl (Metoclopramide 5 Mg/Ml Sdv 2 Ml) 10 mg IVP ONCE PRN PRN Reason: N/V if zofran ineffective Nifedipine (Nifedipine Er (24 Hr) 30 Mg Tablet) 60 mg PO DAILY ON LICENSE OF [facility] Last Admin: 07/10/24 08:28 Dose: 60 mg Ondansetron HCl (Ondansetron 2 Mg/Ml Sdv 2 Ml) 4 mg IVP Q5M PRN PRN Reason: NAUSEA AND VOMITING Scopolamine (Scopolamine 1.5 Patch) 1 patch TRANSDERMA ONCE PRN PRN Reason: Nausea/ Vomiting Prophylaxis Sertraline HCl (Sertraline 100 Mg Tablet) 200 mg PO DAILY ON LICENSE OF [facility] Last Admin: 07/10/24 08:27 Dose: 200 mg Tamsulosin HCl (Tamsulosin 0.4 Mg Capsule) 0.4 mg PO DAILY ON LICENSE OF [facility] Last Admin: 07/10/24 08:27 Dose: 0.4 mg Terazosin HCl (Terazosin 1 Mg Capsule) 1 mg PO DAILY ON LICENSE OF [facility] Last Admin: 07/10/24 08:27 Dose: 1 mg Trazodone HCl (Trazodone 100 Mg Tablet) 400 mg PO BEDTIME PRN PRN Reason: insomnia Last Admin: 07/10/24 22:04 Dose: 400 mg Vitals/I&O/Wt Last Vital Signs Temp 97.7 F 07/11/24 04:00 Pulse 75 07/11/24 05:50 Resp 18 07/11/24 04:00 BP 164/85 07/11/24 04:00 Pulse Ox 91 07/11/24 04:00 O2 Del Method Room Air 07/11/24 04:00 O2 Flow Rate 2 07/09/24 07:31 07/10/24 07/11/24 07/11/24 22:59 06:59 14:59 Intake Total 370.05 / 1113.250 19.35 / 1132.600 Output Total 550 / 550 Balance 370.05 / 1113.250 -530.65 / 582.600 Weight last 48 hrs Weight 128.8 kg Weight 128.8 kg Physical Exam Narrative: Obese man in bed in no apparent distress. On nitro drip. Using oxygen. HEENT normocephalic atraumatic. Neck is supple no JVP. Lungs have dull bases. Heart is regular positive systolic murmur. Abdomen is soft positive bowel sounds. Extremities bilateral edema decreased Neuro awake alert oriented x 3. Patient has a right IJ permacath. Data 07/11/24 04:37 07/11/24 04:37 A&P Assessment and plan (1) Acute kidney injury superimposed on chronic kidney disease: 54-year-old gentleman with progressive renal insufficiency working diagnosis is diabetic hypertensive nephrosclerosis. Patient is starting dialysis as of is improving. 1. ESRD s/p HD yesterday 2. htn- remains on nitro-drip - will do extra fluid removal and full dialysis tomorrow. 3. cardiology appreciated for stress test 4. anemia- monitor hgb. epo when BP stable seen and examined w/ RN- telehealth-pt consents to telehealth and HD Plan dialysis, wean off nitro drip= start an arb Attestations Medical Necessity Statement*: nitro drip, ESRD, htn. needs stress test Time Spent in Patient Care: 16 - 35 minutes (>than 50% of time spent in counselling and/or direct pt care on unit). Coding Level of Care Code Acute Code for [facility] Fwd Diagnoses Acute kidney injury superimposed on chronic kidney disease N17.9; N18.9
--- NOTE | 2024-07-11 08:03 | PC.NURSE ---
upon nursing report to day shift it was discovered the pressure dressing came loose and dialysis catheter site was bleeding again. one nurse held direct pressure while the other nurse called physician for further treatment. pressure held for approximately 20 minutes. second nurse came back with new supplies and new pressure dressing applied. see second nurse note for other new orders.
[2024-07-11] MEDS: sertraline 100 mg Tablet 200 MG PO (08:49)
[2024-07-11] MEDS: duloxetine 60 mg Capsule 120 MG PO (08:49)
[2024-07-11] MEDS: atorvastatin 40 mg Tablet PO (08:49)
[2024-07-11] MEDS: losartan 50 mg Tablet PO (08:49)
[2024-07-11] MEDS: NIFEdipine ER (24 hr) 30 mg Tablet 60 MG PO (08:49)
[2024-07-11] MEDS: ALPRAZolam 0.5 mg Tablet PO ×2 (08:49→21:50)
[2024-07-11] MEDS: aspirin 81 mg EC Tablet PO (08:50)
[2024-07-11] MEDS: carvedilol 12.5 mg Tablet 25 MG PO ×2 (08:50→17:07)
[2024-07-11] MEDS: tamsulosin 0.4 mg Capsule PO (08:50)
--- NOTE | 2024-07-11 10:27 | PC.NURSE ---
Patient left unit to dialysis at 1026.
--- NOTE | 2024-07-11 12:18 | PM.PN ---
Subjective Subjective: Overnight around 3 AM he started having bleeding from permacath site. Pressure dressing done but still bleeding hence surgery consulted. Recommended IV tranexamic acid x 2 and pressure dressing. No surgical intervention needed. Hemoglobin this morning has been stable at 10.4. He denies any complaint of chest pain or dizziness. Was started on subcutaneous Lovenox 120 mg daily for possible NSTEMI. Will discontinue Lovenox for now and monitor. Medications: Reviewed: Yes Vitals/I&O/Wt Last Vital Signs Temp 98.2 F 07/11/24 08:00 Pulse 75 07/11/24 12:00 Resp 18 07/11/24 12:00 BP 141/88 07/11/24 12:00 Pulse Ox 96 07/11/24 08:00 O2 Del Method Room Air 07/11/24 08:00 O2 Flow Rate 2 07/09/24 07:31 07/10/24 07/11/24 07/11/24 22:59 06:59 14:59 Intake Total 370.05 / 1113.250 19.35 / 1132.600 465.60 / 465.60 Output Total 550 / 550 Balance 370.05 / 1113.250 -530.65 / 582.600 465.60 / 465.60 Weight last 48 hrs Weight 127 kg Weight 128.8 kg Weight 128.8 kg Physical Exam Narrative: He is alert awake oriented x 3, obese, not in acute distress but seems highly anxious. Chest clear to auscultation bilaterally, HD catheter in place, pressure dressing present but bleeding still seen. Cardiovascular normal heart sounds Abdomen NAD Extremities no edema noted bilateral lower extremity Data 07/11/24 04:37 07/11/24 04:37 A&P Assessment and plan (1) Acute kidney injury superimposed on chronic kidney disease: (2) Diabetes mellitus: (3) Hypertension: (4) Peripheral neuropathy: (5) Morbid obesity: (6) Generalized anxiety disorder: (7) Major depressive disorder, recurrent severe without psychotic features: (8) GERD (gastroesophageal reflux disease): Plan Abimael Cochran is a 54 year old male with past medical history of uncontrolled hypertension, hyperlipidemia, major depressive disorder, generalized anxiety disorder, chronic low back pain, type 2 diabetes mellitus was referred by primary care physician for abnormal labs and found to have creatinine of 6.9, potassium of 3.0, BUN 49. Admit to [facility] Acute on chronic kidney disease- Nephrology consulted in ED Plan for hydration with IV fluids at 125cc/hr Follow up nephrology for further recommendations. Follow-up renal ultrasound Uncontrolled hypertension-systolic blood pressure in high 190s Also has component of anxiety, hence will do Xanax 0.5 mg 3 times daily as needed Captopril, diltiazem and metoprolol on hold secondary to Tommie Continue Coreg 12.5 mg twice daily, hydralazine 50 mg 3 times daily and nifedipine ER 30 mg daily as per nephrology. Monitor for now. 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 for now for possible HD catheter later today. 07/05-creatinine still 6.7 today. Spoke with nephrology, wants to monitor for 1 more day. In view of normal renal ultrasound, normal potassium levels, patient not uremic, as per nephrology patient can have an outpatient kidney biopsy and further intervention if needed. Blood pressure better controlled on current regimen. Will continue to monitor. 07/06-creatinine trending up to 7.3 today. Spoke with nephrology plan for permacath and initiation of hemodialysis. Surgery consulted. N.p.o. for procedure for now. Will continue Coreg, hydralazine and nifedipine for blood pressure control. Patient educated and counseled about plan of care.Had low sugars overnight, hence will change lantus to daily for now. 07/07-he received hemodialysis this morning. Creatinine trending down to 6.2 today. Blood pressure improved post dialysis, 148/82 on Coreg, hydralazine and nifedipine. Will continue to monitor and follow-up nephrology for further recommendations. 07/08-was plan to discharge today after hemodialysis but was found to have systolic blood pressure in 190s all throughout the hemodialysis session. Also complained of chest pain initially. Given IV hydralazine 10 mg x 1 with no significant change. Also given p.o. hydralazine 25 mg additional dose with no significant change hence will do Procardia XL 30 mg x 1 dose now. Check EKG and follow up. 07/09-discharge plan postponed due to uncontrolled hypertension/hypertensive urgency. Blood pressure still between 1 70-1 90s, started on nitro drip yesterday afternoon, continue nitro drip for now. 3 sets of troponins elevated at 118, 117, 123 but EKG did not show ST elevation. Since he is on nitro drip, will plan chemical stress test once blood pressure controlled. No more episodes of chest pain noted. Will do anticoagulation with subcutaneous Lovenox 120 mg daily as per creatinine clearance. Continue Coreg, hydralazine and Procardia for now. 07/10-blood pressure still 172/82. Will continue nitro drip. Blood pressure medications adjusted as per nephro, on Coreg 12.5 twice daily, Procardia XL 60 mg daily and Cozaar 50 mg daily. Will increase Coreg to 25 mg twice a day and titrate down nitro drip. Once off nitro drip will plan for stress test. Continue therapeutic Lovenox. 07/11-blood pressure still elevated and on nitro drip. Will follow-up nephrology for medication adjustment. Permacath site bleeding likely secondary to anticoagulation, will discontinue Lovenox. HD session today as per nephro. Once blood pressure stabilized, we will plan for stress test. Attestations Medical Necessity Statement*: He needs continued hospitalization for management of uncontrolled hypertension/hypertensive urgency with nitroglycerin drip, and NSTEMI with further workup with chemical stress test and permacath site bleeding Time Spent in Patient Care: 20 minutes Coding Level of Care Code Acute Code for [facility] Diagnoses Acute kidney injury superimposed on chronic kidney disease N17.9; N18.9 Diabetes mellitus E11.9 Hypertension I10 Peripheral neuropathy G62.9 Morbid obesity E66.01 Generalized anxiety disorder F41.1 Major depressive disorder, recurrent severe without psychotic features F33.2 GERD (gastroesophageal reflux disease) K21.9 Time Spent (min) 20
[2024-07-11 12:24] LABS: Glucose Point of Care 147 mg/dL (70-110)
--- NOTE | 2024-07-11 18:37 | PC.NURSE ---
Dressing was changed on patients dialysis site every 3 hours.
--- NOTE | 2024-07-11 20:00 | PC.NURSE ---
dressing changed at dialysis port. dressing completely saturated
[2024-07-11 20:55] LABS: Glucose Point of Care 196 mg/dL (70-110)
[2024-07-11] MEDS: insulin glargine 100 units/1 mL 40 UNIT SUBCUT (21:40)
[2024-07-11] MEDS: trazodone 100 mg Tablet 400 MG PO (21:50)
--- NOTE | 2024-07-11 21:55 | PC.NURSE ---
dressing changed at dialysis port. dressing completely saturated
--- NOTE | 2024-07-11 22:38 | PC.NURSE ---
called physician about pt bleeding. new order for a pressure dressing and cbc to be drawn.
[2024-07-11 23:01] LABS: Basophils # 0.1 10^3/uL (0.0-0.1); Basophils % 0.7 %; Eosinophils # 0.3 10^3/uL (0.0-0.8); Hematocrit 29.2 % (37-53); Lymphocytes % 11.3 %; Mean Corpuscular HGB Conc 32.5 g/dL (30-55); Mean Corpuscular Hemoglobin 27.6 pg (27-33); Mean Corpuscular Volume 84.9 fl (82-101); Mean Platelet Volume 10.9 fL (7.4-10.4); Monocytes # 0.6 10^3/uL (0.2-0.9); Monocytes % 7.1 %; Neutrophils # 6.78 10^3/uL (1.8-7.7); Neutrophils % 77.6 %; Nucleated Red Blood Cells % 0 %; Platelet Count 165 10^3/cmm (157-399); Red Blood Count 3.44 10^6/uL (3.85-5.65); Red Cell Distribution Width 13.6 % (12.1-15.1); White Blood Count 8.74 10^3/uL (3.29-11.43)
[2024-07-12] VITALS (12 sets, daily range): BP systolic 136–177; BP diastolic 79–93; PULSE 68–88; RESP 13–30; TEMP 36.3–36.9; O2SAT 94–99
[2024-07-12] MEDS: famotidine 20 mg/2 mL INJ IVP ×2 (03:00→14:54)
--- NOTE | 2024-07-12 03:04 | PC.NURSE ---
pressure dressing saturated. new pressure dressing applied.
[2024-07-12 05:14] LABS: Basophils # 0.1 10^3/uL (0.0-0.1); Eosinophils # 0.3 10^3/uL (0.0-0.8); Eosinophils % 3.4 %; Hematocrit 28.6 % (37-53); Lymphocytes # 1.1 10^3/uL (0.8-4.8); Lymphocytes % 13.9 %; Mean Corpuscular HGB Conc 31.8 g/dL (30-55); Mean Corpuscular Hemoglobin 27.5 pg (27-33); Mean Corpuscular Volume 86.4 fl (82-101); Mean Platelet Volume 10.9 fL (7.4-10.4); Monocytes # 0.6 10^3/uL (0.2-0.9); Monocytes % 7.7 %; Neutrophils % 73.5 %; Nucleated Red Blood Cells % 0 %; Platelet Count 155 10^3/cmm (157-399); Red Blood Count 3.31 10^6/uL (3.85-5.65); Red Cell Distribution Width 13.6 % (12.1-15.1); White Blood Count 8.03 10^3/uL (3.29-11.43)
[2024-07-12 05:28] LABS: Alanine Aminotransferase < 5 U/L (0-41); Albumin Level 2.9 g/dL (3.5-5.2); Alkaline Phosphatase 51 U/L (40-130); Anion Gap 12.6 (5-19); Aspartate Amino Transferase 10 U/L (0-40); Blood Urea Nitrogen 35 mg/dL (6-20); Calcium 7.4 mg/dL (8.5-10.5); Carbon Dioxide 27 mmol/L (22-29); Chloride 102 mmol/L (98-107); Globulin 2.1 g/dL (1.3-4.6); Glomerular Filtration Rate 10.7 mL/min (90-130); Glucose 91 mg/dL (65-115); Magnesium 2.1 mg/dL (1.7-2.3); Osmolality Calculated 294 mOsm/kg (285-295); Potassium 3.6 mmol/L (3.5-5.1); Sodium 138 mmol/L (136-145); Total Bilirubin 0.3 mg/dL (0.15-1.2)
[2024-07-12 06:42] LABS: Glucose Point of Care 88 mg/dL (70-110)
[2024-07-12] MEDS: ALPRAZolam 0.5 mg Tablet PO ×2 (08:35→21:19)
[2024-07-12] MEDS: tamsulosin 0.4 mg Capsule PO (08:35)
[2024-07-12] MEDS: atorvastatin 40 mg Tablet PO (08:36)
[2024-07-12] MEDS: duloxetine 60 mg Capsule 120 MG PO (08:37)
[2024-07-12] MEDS: losartan 50 mg Tablet PO (08:37)
[2024-07-12] MEDS: sertraline 100 mg Tablet 200 MG PO (08:37)
[2024-07-12] MEDS: carvedilol 12.5 mg Tablet 25 MG PO ×2 (08:37→17:37)
[2024-07-12] MEDS: aspirin 81 mg EC Tablet PO (08:37)
--- NOTE | 2024-07-12 08:44 | PC.NURSE ---
Dr Garza came at 0840 to look at patients dialysis site. The dressing is removed and it is currently not bleeding. Dr. Garza requested that if it is not bleeding to leave it uncovered.
--- NOTE | 2024-07-12 10:30 | PC.NURSE ---
Patient left the unit for dialysis at 1015.
--- NOTE | 2024-07-12 10:39 | PC.SOCIAL ---
IMM Updated Updated pt on IMM. No questions voiced. Provided pt a copy. Initialed, dated, & timed copy in chart.
--- NOTE | 2024-07-12 10:51 | PC.NURSE ---
Patient ambulated in the hallway yesterday (07/11) 350 feet. Vitals remained stable and no shortness of breath.
--- NOTE | 2024-07-12 11:29 | PC.HD ---
CS[facility] RN reports that Dr Garza removed pt's cath drsg this am, said not to dress it unless bleeding, Dr Karla carr w/instructions rec'd to dress it per protocol. Cleaned w/CHG & JAIME and Covaderm applied.
[2024-07-12 12:02] LABS: Glucose Point of Care 102 mg/dL (70-110)
--- NOTE | 2024-07-12 14:01 | PC.NURSE ---
Patient returned to the unit from dialysis at 1400.
--- NOTE | 2024-07-12 14:43 | P.PN_ITS ---
Subjective 2 Subjective: No acute overnight events noted. Bleeding from the permacath site resolved. Surgery to see him at bedside this morning, recommended no further pressure dressing needed. Denies any complaint of chest pain or shortness of breath. Medications: Reviewed: Yes Vitals/I&O/Wt Last Vital Signs Temp 97.4 F L 07/12/24 07:24 Pulse 84 07/12/24 14:11 Resp 22 H 07/12/24 14:11 BP 158/79 07/12/24 14:11 Pulse Ox 99 07/12/24 14:11 O2 Del Method Room Air 07/12/24 14:11 O2 Flow Rate 2 07/09/24 07:31 FiO2 21 07/12/24 05:35 07/11/24 07/12/24 07/12/24 22:59 06:59 14:59 Intake Total 240 / 1186.35 220 / 220 Output Total 850 / 850 Balance 240 / 1186.35 -630 / -630 Weight last 48 hrs Weight 127 kg Weight 127 kg Weight 128.8 kg Physical Exam 2 Narrative: He is alert awake oriented x 3, obese, not in acute distress but seems highly anxious. Chest clear to auscultation bilaterally, HD catheter in place, pressure dressing present but bleeding still seen. Cardiovascular normal heart sounds Abdomen NAD Extremities no edema noted bilateral lower extremity Data 07/12/24 04:30 07/12/24 04:30 A&P Assessment and plan (1) Acute kidney injury superimposed on chronic kidney disease: (2) Diabetes mellitus: (3) Hypertension: (4) Peripheral neuropathy: (5) Morbid obesity: (6) Generalized anxiety disorder: (7) Major depressive disorder, recurrent severe without psychotic features: (8) GERD (gastroesophageal reflux disease): Plan Abimael Cochran is a 54 year old male with past medical history of uncontrolled hypertension, hyperlipidemia, major depressive disorder, generalized anxiety disorder, chronic low back pain, type 2 diabetes mellitus was referred by primary care physician for abnormal labs and found to have creatinine of 6.9, potassium of 3.0, BUN 49. Admit to [facility] Acute on chronic kidney disease- Nephrology consulted in ED Plan for hydration with IV fluids at 125cc/hr Follow up nephrology for further recommendations. Follow-up renal ultrasound Uncontrolled hypertension-systolic blood pressure in high 190s Also has component of anxiety, hence will do Xanax 0.5 mg 3 times daily as needed Captopril, diltiazem and metoprolol on hold secondary to Tommie Continue Coreg 12.5 mg twice daily, hydralazine 50 mg 3 times daily and nifedipine ER 30 mg daily as per nephrology. Monitor for now. Continue aspirin and Lipitor Type 2 diabetes mellitus-will continue with insulin glargine 60 units twice daily Monitor fingersticks 3 times daily with meals and bedtime Major depressive disorder/RODERICK-continue [employer] Cymbalta, Zoloft, trazodone and Rexulti Chronic low back pain-continue [employer] pregabalin GI prophylaxis with IV Pepcid DVT prophylaxis with SCD N.p.o. for now for possible HD catheter later today. 07/05-creatinine still 6.7 today. Spoke with nephrology, wants to monitor for 1 more day. In view of normal renal ultrasound, normal potassium levels, patient not uremic, as per nephrology patient can have an outpatient kidney biopsy and further intervention if needed. Blood pressure better controlled on current regimen. Will continue to monitor. 07/06-creatinine trending up to 7.3 today. Spoke with nephrology plan for permacath and initiation of hemodialysis. Surgery consulted. N.p.o. for procedure for now. Will continue Coreg, hydralazine and nifedipine for blood pressure control. Patient educated and counseled about plan of care.Had low sugars overnight, hence will change lantus to daily for now. 07/07-he received hemodialysis this morning. Creatinine trending down to 6.2 today. Blood pressure improved post dialysis, 148/82 on Coreg, hydralazine and nifedipine. Will continue to monitor and follow-up nephrology for further recommendations. 07/08-was plan to discharge today after hemodialysis but was found to have systolic blood pressure in 190s all throughout the hemodialysis session. Also complained of chest pain initially. Given IV hydralazine 10 mg x 1 with no significant change. Also given p.o. hydralazine 25 mg additional dose with no significant change hence will do Procardia XL 30 mg x 1 dose now. Check EKG and follow up. 07/09-discharge plan postponed due to uncontrolled hypertension/hypertensive urgency. Blood pressure still between 1 70-1 90s, started on nitro drip yesterday afternoon, continue nitro drip for now. 3 sets of troponins elevated at 118, 117, 123 but EKG did not show ST elevation. Since he is on nitro drip, will plan chemical stress test once blood pressure controlled. No more episodes of chest pain noted. Will do anticoagulation with subcutaneous Lovenox 120 mg daily as per creatinine clearance. Continue Coreg, hydralazine and Procardia for now. 07/10-blood pressure still 172/82. Will continue nitro drip. Blood pressure medications adjusted as per nephro, on Coreg 12.5 twice daily, Procardia XL 60 mg daily and Cozaar 50 mg daily. Will increase Coreg to 25 mg twice a day and titrate down nitro drip. Once off nitro drip will plan for stress test. Continue therapeutic Lovenox. 07/11-blood pressure still elevated and on nitro drip. Will follow-up nephrology for medication adjustment. Permacath site bleeding likely secondary to anticoagulation, will discontinue Lovenox. HD session today as per nephro. Once blood pressure stabilized, we will plan for stress test. 07/12-blood pressure slightly improved to 158/79. Nitro drip discontinued at 12 noon on 07/11. Will plan for stress test in a.m. he is n.p.o. past midnight. Going for hemodialysis today Attestations 2 Medical Necessity Statement*: He needs continued hospitalization for management for NSTEMI with further workup with chemical stress test. Hypertensive urgency resolved, blood pressure stable on current oral medications and daily hemodialysis. Time Spent in Patient Care: 20 minutes Coding Level of Care Code Acute Code for Chg Fwd Diagnoses Acute kidney injury superimposed on chronic kidney disease N17.9; N18.9 Diabetes mellitus E11.9 Hypertension I10 Peripheral neuropathy G62.9 Morbid obesity E66.01 Generalized anxiety disorder F41.1 Major depressive disorder, recurrent severe without psychotic features F33.2 GERD (gastroesophageal reflux disease) K21.9 Time Spent (min) 20
--- NOTE | 2024-07-12 14:49 | P.PN_ITS ---
Subjective 2 Subjective: no new c/o Medications: Reviewed: Yes Vitals/I&O/Wt Last Vital Signs Temp 97.4 F L 07/12/24 07:24 Pulse 84 07/12/24 14:11 Resp 22 H 07/12/24 14:11 BP 158/79 07/12/24 14:11 Pulse Ox 99 07/12/24 14:11 O2 Del Method Room Air 07/12/24 14:11 O2 Flow Rate 2 07/09/24 07:31 FiO2 21 07/12/24 05:35 07/11/24 07/12/24 07/12/24 22:59 06:59 14:59 Intake Total 240 / 1186.35 220 / 220 Output Total 850 / 850 Balance 240 / 1186.35 -630 / -630 Weight last 48 hrs Weight 127 kg Weight 127 kg Weight 128.8 kg Physical Exam 2 Narrative: Obese man in bed in no apparent distress Using oxygen. HEENT normocephalic atraumatic. Neck is supple no JVP. Lungs have dull bases. Heart is regular positive systolic murmur. Abdomen is soft positive bowel sounds. Extremities bilateral edema decreased Neuro awake alert oriented x 3. Patient has a right IJ permacath. Data 07/12/24 04:30 07/12/24 04:30 A&P Assessment and plan (1) Acute kidney injury superimposed on chronic kidney disease: 54-year-old gentleman with progressive renal insufficiency working diagnosis is diabetic hypertensive nephrosclerosis. 1. ESRD - HD today 2. htn-s/p nitro-drip - HD today 3. NSTEMI - plan for stress test 4. anemia- monitor hgb. epo when BP stable seen and examined w/ RN- telehealth-pt consents to telehealth and HD Attestations 2 Medical Necessity Statement*: per brandonma Coding Level of Care Code Acute Code for [facility] Fwd Diagnoses Acute kidney injury superimposed on chronic kidney disease N17.9; N18.9
[2024-07-12 17:20] LABS: Glucose Point of Care 190 mg/dL (70-110)
--- NOTE | 2024-07-12 18:44 | PC.NURSE ---
Patient ambulated in the hallway 350 feet this afternoon. Patient's vitals remained stable and no shortness of breath.
[2024-07-12] MEDS: insulin glargine 100 units/1 mL 40 UNIT SUBCUT (20:45)
[2024-07-12 20:53] LABS: Glucose Point of Care 240 mg/dL (70-110)
[2024-07-12] MEDS: trazodone 100 mg Tablet 400 MG PO (21:19)
[2024-07-13] VITALS (11 sets, daily range): BP systolic 159–183; BP diastolic 80–93; PULSE 66–87; RESP 13–31; TEMP 36.7–37.2; O2SAT 97–100; BMI 30.4
[2024-07-13] MEDS: famotidine 20 mg/2 mL INJ IVP ×2 (01:56→14:20)
[2024-07-13 04:59] LABS: Alanine Aminotransferase < 5 U/L (0-41); Alkaline Phosphatase 51 U/L (40-130); Anion Gap 12.6 (5-19); Aspartate Amino Transferase 12 U/L (0-40); Blood Urea Nitrogen 27 mg/dL (6-20); Calcium 7.6 mg/dL (8.5-10.5); Carbon Dioxide 27 mmol/L (22-29); Chloride 105 mmol/L (98-107); Creatinine Clr Calc Pharmacy 26.2875; Globulin 2.1 g/dL (1.3-4.6); Glomerular Filtration Rate 12.4 mL/min (90-130); Glucose 81 mg/dL (65-115); Osmolality Calculated 296 mOsm/kg (285-295); Phosphorus 4.5 mg/dL (2.5-4.5); Potassium 3.6 mmol/L (3.5-5.1); Sodium 141 mmol/L (136-145); Total Bilirubin 0.2 mg/dL (0.15-1.2); Total Protein 5.1 g/dL (6.6-8.7)
--- NOTE | 2024-07-13 06:27 | ECG_ITS ---
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
[2024-07-13 06:30] LABS: Glucose Point of Care 76 mg/dL (70-110)
[2024-07-13] MEDS: regadenoson 0.4 Mg/5 ml Syringe IVP (07:30)
--- NOTE | 2024-07-13 07:40 | P.PN_ITS ---
Subjective 2 Subjective: s/p HD yesterday Medications: Reviewed: Yes Vitals/I&O/Wt Last Vital Signs Temp 98.1 F 07/13/24 04:00 Pulse 68 07/13/24 05:21 Resp 14 07/13/24 04:00 BP 180/91 07/13/24 04:00 Pulse Ox 98 07/13/24 04:27 O2 Del Method Room Air 07/13/24 04:00 O2 Flow Rate 2 07/09/24 07:31 FiO2 21 07/13/24 04:27 07/12/24 07/13/24 07/13/24 22:59 06:59 14:59 Intake Total 240 / 460 930 / 1390 Balance 240 / -390 930 / 540 Weight last 48 hrs Weight 125.6 kg Weight 127 kg Weight 127 kg Physical Exam 2 Narrative: Obese man in bed in no apparent distress Using oxygen. HEENT normocephalic atraumatic. Neck is supple no JVP. Lungs have dull bases. Heart is regular positive systolic murmur. Abdomen is soft positive bowel sounds. Extremities bilateral edema decreased Neuro awake alert oriented x 3. Patient has a right IJ permacath. Data 07/14/24 04:17 07/14/24 04:17 A&P Assessment and plan (1) Acute kidney injury superimposed on chronic kidney disease: 54-year-old gentleman with progressive renal insufficiency working diagnosis is diabetic hypertensive nephrosclerosis. 1. ESRD - HD tomorrow 2. htn-s/p nitro-drip - HD tomorrow 3. NSTEMI - s/p stress test 4. anemia- monitor hgb. epo when BP stable seen and examined w/ RN- telehealth-pt consents to telehealth and HD Attestations 2 Medical Necessity Statement*: per medicine Coding Level of Care Code Acute Code for Chg Fwd Diagnoses Acute kidney injury superimposed on chronic kidney disease N17.9; N18.9
[2024-07-13] MEDS: tamsulosin 0.4 mg Capsule PO (08:56)
[2024-07-13] MEDS: sertraline 100 mg Tablet 200 MG PO (08:56)
[2024-07-13] MEDS: losartan 50 mg Tablet PO (08:56)
[2024-07-13] MEDS: atorvastatin 40 mg Tablet PO (08:56)
[2024-07-13] MEDS: duloxetine 60 mg Capsule 120 MG PO (08:56)
[2024-07-13] MEDS: carvedilol 12.5 mg Tablet 25 MG PO ×2 (08:56→18:17)
[2024-07-13] MEDS: aspirin 81 mg EC Tablet PO (08:56)
[2024-07-13] MEDS: ALPRAZolam 0.5 mg Tablet PO ×2 (09:04→16:34)
[2024-07-13] MEDS: ondansetron 2 mg/ML SDV 2 mL 4 MG IVP ×2 (10:09→19:57)
[2024-07-13 11:16] LABS: Glucose Point of Care 147 mg/dL (70-110)
[2024-07-13 14:40] LABS: DNA AB (DS) CRITHIDIA,IFA NEGATIVE (NEGATIVE)
--- NOTE | 2024-07-13 14:40 | NMCV_ITS ---
NM amy perf SPECT r/s* [id number] Abimael Cochran Age: 54 Gender: M : 1970 Exam Date: 07/13/2024 06:40 Ordering Phys: Yaneth Demarco MD Technologist: ELAYNE Li Exam Location: [facility] Indications: CP STRESS TEST Please see separate stress test report in [facility] for full findings IMAGE PROTOCOL Rest/Stress 1 Lexiscan Day Radiopharmaceutical Dose (mCi) Administration Site Administered by Rest: Tc-99m 10.7 IV ELAYNE Bermudez Sestamibi Stress:Tc-99m 32.6 IV ELAYNE Li Sestaminatan Rest: 13-Jul-2024 60 Discovery 630 Stress: 13-Jul-2024 15 Discovery 630 0.4mg Lexiscan. Images obtained in supine and prone position. SPECT RESULTS Technical Quality: Excellent Raw Data Analysis: Normal Image Corrections: No attenuation or motion correction applied Summed Stress Score: 5 Summed Rest Score: 0 Summed Difference Score: 5 PERFUSION FINDINGS There is medium sized area of mostly reversible perfusion defect seen in the inferolateral and inferior vazquez. This is consistent with medium sized area of prior infarct with significant jennifer-infarct ischemia in these territories. FUNCTIONAL RESULTS (calculated via Gated SPECT) Stress Image LV EF (%): 43 Stress EDV (mL):206 TID: 1.05 Stress ESV (mL):0 FUNCTIONAL FINDINGS: LV systolic function is mildly reduced with EF of 43% IMPRESSIONS 1. Abnormal myocardial perfusion imaging with medium sized area of prior infarct with significant jennifer-infarct ischemia in inferior and inferolateral vazquez. Perfusion defect is mostly reversible. 2. LV systolic function is mildly reduced with EF of 43% Damaso Rivera MD (Electronically Signed) Final Date: 13 July 2024 08:56 S
[2024-07-13 16:45] LABS: Glucose Point of Care 157 mg/dL (70-110)
[2024-07-13 21:06] LABS: Glucose Point of Care 150 mg/dL (70-110)
--- NOTE | 2024-07-13 21:21 | P.CONIM_ITS ---
Providers/Reason For Consult 2 Consulting Physician/Specialty*: MARIA ESTHER Ennis MD/cardiology Reason for Consult*: Patient with chest pain and abnormal Myocardial perfusion imaging Requesting Physician: Dr. Demarco Attending Physician: Yaneth Demarco MD Primary Care Provider: ALONDRA Caldera History of Present Illness History of Present Illness Abimael Cochran is a 54 year old male with a history of hypertension, diabetes, dyslipidemia, end-stage renal disease, was admitted to the hospital for dialysis catheter placement and hemodialysis. While getting the third hemodialysis, patient started having chest pain. The pain might have lasted for 45 seconds or so and then gradually subsided. He underwent a Myocardial perfusion imaging today. The study was found to be abnormal. Cardiology consult is requested for further cardiac evaluation recommendations. This patient has a history of hypertension, diabetes and dyslipidemia for the last more than 10 years. In 2017, he had a brown recluse bite which ended up causing sepsis and renal failure. He had dialysis for a while and then was discontinued. His kidney function improved at that time. But over the years, the kidney function started getting worse again and apparently ended up requiring dialysis now. More than 10 years ago, he had stress test and cardiac catheterization. He was found to have no significant blockages at that time. His father had a myocardial infarction in his 50s. Mother had congestive heart failure. One of his sisters had myocardial infarction in her 40s. Patient has history of smoking abuse with a pack to a pack and a half a day for 10 years or so which he quit in 2017. History of heavy alcohol abuse for 15 years or so which he quit more than 20 years ago. No other substance abuse. Review of Systems 2 Narrative: CONSTITUTIONAL: No fever or chills. EYES: No blurring of vision or other visual disturbances lately. ENT: No hoarseness of voice, auditory disturbances or sore throat. CARDIOVASCULAR: As mentioned above. RESPIRATORY: No significant cough. GASTROINTESTINAL: No hematemesis or melena. GENITOURINARY: As mentioned above. INTEGUMENTARY: No skin rashes or history of skin cancer. NEURO: No transient ischemic attacks or amaurosis. PSYCHIATRIC: No history of psychosis or major depression. HEMATOLOGIC: No bleeding disorders or significant anemia. ENDOCRINE: Type 2 diabetes MUSCULOSKELETAL: No recent joint pain or swelling. ALLERGY/IMMUNOLOGY: As mentioned above. Medications/Allergies Home Medications Medication Instructions Recorded Confirmed Last Taken Type albuterol sulfate 90 mcg/actuation 2 puff inhalation Q6H PRN sob 11/07/20 07/04/24 07/13/21 History aerosol inhaler (Ventolin HFA) atorvastatin 40 mg tablet 40 mg PO DAILY 11/07/20 07/04/24 07/04/24 09:00 History cetirizine 10 mg tablet 10 mg PO DAILY 11/07/20 07/04/24 07/04/24 09:00 History fluticasone furoate 50 1 inh inhalation BID 11/07/20 07/04/24 07/11/21 History mcg/actuation blister powder for inhalation insulin aspart U-100 100 unit/mL 100 unit SUBCUT DAILY PRN blood 11/07/20 07/04/24 07/09/21 History (3 mL) subcutaneous pen (Novolog sugar FlexPen U-100 Insulin aspart) insulin glargine U-300 conc 300 60 unit SUBCUT BID 11/07/20 07/04/24 07/04/24 09:00 History unit/mL (3 mL) subcutaneous pen (Toujeo Max U-300 SoloStar) tamsulosin 0.4 mg capsule (Flomax) 0.4 mg PO DAILY 11/07/20 07/04/24 07/04/24 History aspirin 81 mg tablet,delayed 81 mg PO DAILY 02/03/21 07/04/24 07/03/24 History release cyclobenzaprine 10 mg tablet 10 mg PO TID 05/29/21 07/04/24 07/04/24 09:00 History metoprolol tartrate 75 mg tablet 75 mg PO TID 05/29/21 07/04/24 07/04/24 09:00 History multivitamin 1 tab PO DAILY 05/29/21 07/04/24 07/04/24 History pregabalin 100 mg capsule (Lyrica) 100 mg PO TID 05/29/21 07/04/24 07/04/24 09:00 History pantoprazole 40 mg tablet,delayed 40 mg PO DAILY POST GASTRIC SLEEVE 07/17/21 07/04/24 07/04/24 09:00 Rx release (Protonix) 30 days #30 tabs dapagliflozin propanediol 5 mg 5 mg PO DAILY 03/22/23 07/04/24 07/04/24 09:00 History tablet (Farxiga) terazosin 1 mg capsule 1 mg PO DAILY 07/06/23 07/04/24 07/04/24 09:00 History brexpiprazole 2 mg tablet (Rexulti) 2 mg PO DAILY #30 tabs 04/06/24 07/04/24 07/04/24 Rx duloxetine 60 mg capsule,delayed 120 mg (2 x 60 mg) PO DAILY #60 04/06/24 07/04/24 07/04/24 Rx release caps sertraline 100 mg tablet (Zoloft) 200 mg (2 x 100 mg) PO DAILY #60 04/06/24 07/04/24 07/04/24 Rx tabs trazodone 100 mg tablet 400 mg (4 x 100 mg) PO .HS PRN 04/06/24 07/04/24 07/03/24 Rx insomnia #120 tabs carvedilol 12.5 mg tablet 12.5 mg PO BID 30 days #60 tabs 07/08/24 Unknown Rx hydralazine 50 mg tablet 50 mg PO TID 30 days #90 tabs 07/08/24 Unknown Rx nifedipine 30 mg tablet,extended 30 mg PO DAILY 30 days #30 tabs 07/08/24 Unknown Rx release 24 hr Allergies Allergy/AdvReac Type Severity Reaction Status Date / Time diphenhydramine Allergy Unknown Unknown Verified 01/04/24 09:36 [From Gordonzuleyma] ertapenem [From Invanz] Allergy Unknown Unknown Verified 01/04/24 09:36 Current Medications Generic Name Dose Route Start Last Admin Trade Name Freq PRN Reason Stop Dose Admin Acetaminophen 650 mg 07/05/24 02:16 07/10/24 03:11 Acetaminophen 325 Mg Tablet PO 650 mg Q4H PRN Administration MILD PAIN OR INCREASE TEMP Alprazolam 0.5 mg 07/12/24 20:52 07/13/24 16:34 Alprazolam 0.5 Mg Tablet PO 0.5 mg TID PRN Administration ANXIETY Aspirin 81 mg 07/05/24 09:00 07/13/24 08:56 Aspirin 81 Mg Ec Tablet PO 81 mg DAILY ISABEL Administration Atorvastatin Calcium 40 mg 07/05/24 09:00 07/13/24 08:56 Atorvastatin 40 Mg Tablet PO 40 mg DAILY ISABEL Administration Carvedilol 25 mg 07/10/24 18:00 07/13/24 18:17 Carvedilol 12.5 Mg Tablet PO 25 mg BID ISABEL Administration Duloxetine HCl 120 mg 07/05/24 09:00 07/13/24 08:56 Duloxetine 60 Mg Capsule PO 120 mg DAILY ISABEL Administration Famotidine 20 mg 07/04/24 14:15 07/13/24 14:20 Famotidine 20 Mg/2 Ml Inj IVP 20 mg Q12H ISABEL Administration Nitroglycerin/Dextrose 50 mg in 250 mls @ 0 mls/hr 07/08/24 19:45 07/11/24 12:22 Nitroglycerin Drip IV 0 mcg/min .Q0M ISABEL 0 mls/hr Titration Protocol Per Protocol Insulin Glargine 40 unit 07/07/24 21:00 07/12/24 20:45 Insulin Glargine 100 Units/1 Ml SUBCUT 40 unit BEDTIME ISABEL Administration Losartan Potassium 50 mg 07/10/24 09:00 07/13/24 08:56 Losartan 50 Mg Tablet PO 50 mg DAILY ISABEL Administration Ondansetron HCl 4 mg 07/06/24 11:51 07/13/24 19:57 Ondansetron 2 Mg/Ml Sdv 2 Ml IVP 4 mg Q5M PRN Administration NAUSEA AND VOMITING Sertraline HCl 200 mg 07/05/24 09:00 07/13/24 08:56 Sertraline 100 Mg Tablet PO 200 mg DAILY ISABEL Administration Tamsulosin HCl 0.4 mg 07/05/24 09:00 07/13/24 08:56 Tamsulosin 0.4 Mg Capsule PO 0.4 mg DAILY ISABEL Administration Terazosin HCl 1 mg 07/05/24 09:00 07/13/24 08:55 Terazosin 1 Mg Capsule PO 1 mg DAILY ISABEL Administration Trazodone HCl 400 mg 07/04/24 14:17 07/12/24 21:19 Trazodone 100 Mg Tablet PO 400 mg BEDTIME PRN Administration insomnia PFSH Acute 2 PFSH: Medical History (Updated 07/13/24 @ 22:17 by Kareem Ennis MD) Psychiatric care GERD (gastroesophageal reflux disease) Chronic kidney disease Hypertension Hyperlipidemia Diabetes Morbid obesity Bereavement Chronic major depressive disorder Colon polyp Encounter for screening colonoscopy Surgical History History of colonoscopy with polypectomy History of tonsillectomy History of foot surgery History of shoulder surgery Family History Denies family history of Anesthesia complication Bleeding disorder Social History Smoking and tobacco/nicotine status: current every day tobacco/nicotine user smokeless tobacco Smokeless tobacco user: snuff Smokeless tobacco details: One can/day. Chewed for 30 or 40 yrs. Quit status (tobacco/nicotine): has tried quititng Number of times tried to quit tobacco: 3 Second hand smoke exposure: Yes (Occ.) Alcohol intake: current Alcohol intake frequency: holidays/special occasions only Alcohol type: beer Substance/Drug Use: current Substance/Drug use frequency: few times a week Other substance/drug use details: A few times a week. Vitals/I&O/Wt Last Vital Signs Temp 98.9 F 07/13/24 20:00 Pulse 72 07/13/24 20:00 Resp 21 H 07/13/24 20:00 BP 159/91 07/13/24 20:00 Pulse Ox 97 07/13/24 20:00 O2 Del Method Room Air 07/13/24 20:00 O2 Flow Rate 2 07/09/24 07:31 FiO2 21 07/13/24 04:27 07/13/24 07/13/24 07/13/24 06:59 14:59 22:59 Intake Total 930 / 1390 960 / 960 480 / 1440 Balance 930 / 540 960 / 960 480 / 1440 Weight last 48 hrs Weight 276 lb 14.409 oz Weight 279 lb 15.793 oz Physical Exam 2 Narrative: GENERAL: The patient is alert and oriented times three. Not in any acute distress. HEENT: No significant pallor, icterus or lymphadenopathy.Oral cavity: There are no mucous membrane lesions. NECK: Trachea appears to be central. No masses noted. No JVD or thyromegaly appreciated. RESPIRATORY: Chest is symmetrical. No intercostals muscle retraction or any accessory muscle activation. There is no chest wall tenderness. Breath sounds are heard bilaterally. No rales or rhonchi heard. No evidence of any consolidation. Dialysis catheter in the right subclavian vein BREASTS: Deferred. HEART: The heart sounds are normal. No S3 or S4. No significant murmurs. No pericardial rub ABDOMEN: No vessel pulsations or distention. No tenderness. No organomegaly appreciated. Bowel sounds are normally heard. : Deferred. RECTAL: Deferred. LYMPHATIC: No lymphadenopathy noted in the neck. EXTREMITIES: No edema or cyanosis. No clubbing. MUSCULOSKELETAL: No acute joint deformities or swelling SKIN: There are no significant rashes or ecchymosis NEUROPSYCHIATRIC: The patient is alert and oriented x3. Appears to be in a good mood. No tremors or rigidity noted. Data 07/12/24 04:30 07/13/24 04:07 Other Labs: Laboratory Last Values WBC 8.03 10^3/uL (3.29-11.43) 07/12/24 04:30 RBC 3.31 10^6/uL (3.85-5.65) L 07/12/24 04:30 Hgb 9.10 g/dL (11.27-16.99) L 07/12/24 04:30 Hct 28.6 % (37-53) L 07/12/24 04:30 MCV 86.4 fl (82-101) 07/12/24 04:30 MCH 27.5 pg (27-33) 07/12/24 04:30 MCHC 31.8 g/dL (30-55) 07/12/24 04:30 RDW 13.6 % (12.1-15.1) 07/12/24 04:30 Plt Count 155 10^3/cmm (157-399) L 07/12/24 04:30 MPV 10.9 fL (7.4-10.4) H 07/12/24 04:30 Neut % (Auto) 73.5 % 07/12/24 04:30 Lymph % (Auto) 13.9 % 07/12/24 04:30 Harvey % (Auto) 7.7 % 07/12/24 04:30 Eos % (Auto) 3.4 % 07/12/24 04:30 Baso % (Auto) 1.0 % 07/12/24 04:30 Neut # (Auto) 5.90 10^3/uL (1.8-7.7) 07/12/24 04:30 Lymph # (Auto) 1.1 10^3/uL (0.8-4.8) 07/12/24 04:30 Harvey # (Auto) 0.6 10^3/uL (0.2-0.9) 07/12/24 04:30 Eos # (Auto) 0.3 10^3/uL (0.0-0.8) 07/12/24 04:30 Baso # (Auto) 0.1 10^3/uL (0.0-0.1) 07/12/24 04:30 Nucleated RBC % (auto) 0 % 07/12/24 04:30 Nucleated RBCs # 0.0 /100WBC 07/12/24 04:30 Sodium 141 mmol/L (136-145) 07/13/24 04:07 Potassium 3.6 mmol/L (3.5-5.1) 07/13/24 04:07 Chloride 105 mmol/L (98-107) 07/13/24 04:07 Carbon Dioxide 27 mmol/L (22-29) 07/13/24 04:07 Anion Gap 12.6 (5-19) 07/13/24 04:07 BUN 27 mg/dL (6-20) H 07/13/24 04:07 Creatinine 4.9 mg/dL (0.7-1.2) H 07/13/24 04:07 GFR Calculation 12.4 mL/min (90-130) L 07/13/24 04:07 Glucose 81 mg/dL (65-115) 07/13/24 04:07 POC Glucose 150 mg/dL (70-110) H 07/13/24 20:46 Calculated Osmolality 296 mOsm/kg (285-295) H 07/13/24 04:07 Calcium 7.6 mg/dL (8.5-10.5) L 07/13/24 04:07 Phosphorus 4.5 mg/dL (2.5-4.5) 07/13/24 04:07 Magnesium 2.0 mg/dL (1.7-2.3) 07/13/24 04:07 Iron 16 ug/dL (59-158) L 07/10/24 03:18 TIBC 173 mcg/dl 07/10/24 03:18 % Saturation 9.2 % (20-50) L 07/10/24 03:18 Unsat Iron Binding 157 ug/dL (112-347) 07/10/24 03:18 Ferritin 243 ng/mL (30-400) 07/10/24 03:18 Total Bilirubin 0.2 mg/dL (0.15-1.2) 07/13/24 04:07 AST 12 U/L (0-40) 07/13/24 04:07 ALT < 5 U/L (0-41) 07/13/24 04:07 Alkaline Phosphatase 51 U/L (40-130) 07/13/24 04:07 Creatine Kinase 174 U/L (39-308) 07/04/24 10:17 Troponin T Baseline 118 ng/L (0-15) H* 07/08/24 19:00 Troponin T 120 Minute 117.2 ng/L (0-15) H 07/08/24 20:36 Delta Troponin T -0.8 ABS# (0-10) L 07/08/24 20:36 Troponin T Hi Sens 6Hr 123.9 ng/L (0-15) H 07/09/24 00:36 Troponin T Hi Sens 6Hr Delta 5.9 ng/L (0-12) 07/09/24 00:36 Total Protein 5.1 g/dL (6.6-8.7) L 07/13/24 04:07 Albumin 3.0 g/dL (3.5-5.2) L 07/13/24 04:07 Globulin 2.1 g/dL (1.3-4.6) 07/13/24 04:07 25-OH Vitamin D Total 10 ng/mL (30-100) L 07/10/24 03:18 PTH Intact 316.1 pg/mL (15-65) H 07/10/24 03:18 Calcium (PTH Intact) 7.5 mg/dL (8.5-10.5) L 07/10/24 03:18 Urine Color Yellow (Yellow) 07/05/24 00:10 Urine Appearance Clear (CLEAR) 07/05/24 00:10 Urine pH 6.5 (5-7) 07/05/24 00:10 Ur Specific Hulbert 1.011 (1.005-1.030) 07/05/24 00:10 Urine Protein 3+ (Negative) A 07/05/24 00:10 Urine Glucose (UA) 2+ (Normal) H 07/05/24 00:10 Urine Ketones Negative (Negative) 07/05/24 00:10 Urine Blood Trace (Negative) A 07/05/24 00:10 Urine Nitrate Negative (Negative) 07/05/24 00:10 Urine Bilirubin Negative (Negative) 07/05/24 00:10 Urine Urobilinogen 0.2 mg/dL (Negative) 07/05/24 00:10 Ur Leukocyte Esterase Negative (Negative) 07/05/24 00:10 Urine RBC 0-2 /hpf (0-2) 07/05/24 00:10 Urine WBC 0-5 /hpf (0-5) 07/05/24 00:10 Ur Squamous Epith Cells 0-5 /hpf (0-5) 07/05/24 00:10 Amorphous Sediment Not Reportable 07/05/24 00:10 Urine Bacteria None seen /hpf (NONE) 07/05/24 00:10 Hyaline Casts 0-4 /lpf H 07/05/24 00:10 U Random Total Protein 386 mg/dL 07/05/24 00:10 Ur Random Sodium 41 mmol/L 07/04/24 15:50 Urine Creatinine 42 mg/dL (39-259) 07/05/24 00:10 Serum Ketones Negative (Negative) 07/04/24 10:17 JULIANNE IFA Animal Tis Res Negative (NEGATIVE) 07/04/24 19:45 JIA-1 Antibody <1.0 neg AI (<1.0 NEG) 07/04/24 19:45 SS-A Antibody <1.0 neg AI (<1.0 NEG) 07/04/24 19:45 SS-B Antibody <1.0 neg AI (<1.0 NEG) 07/04/24 19:45 Sm (Stephens) Antibody <1.0 neg AI (<1.0 NEG) 07/04/24 19:45 PRINTING PLATE SETTER Antibody <1.0 neg AI (<1.0 NEG) 07/04/24 19:45 Scl-70 Antibody <1.0 neg AI (<1.0 NEG) 07/04/24 19:45 Anti-ds DNA IgG (Crith) Negative (NEGATIVE) 07/04/24 19:45 Centromere B Antibody <1.0 neg AI (<1.0 NEG) 07/04/24 19:45 Thyroid Peroxidase Ab 1 IU/mL (<9) 07/04/24 19:45 Complement C3 100 mg/dL (90-180) 07/04/24 18:37 Complement C3c 85 mg/dL (82-185) 07/04/24 19:45 Complement C4 31 mg/dL (10-40) 07/04/24 18:37 Complement C4c 28 mg/dL (15-53) 07/04/24 19:45 CH50 Classical Pathway 55 U/mL (31-60) 07/04/24 19:45 Hep Bs Antigen Non-reactive (Nonreactive) 07/04/24 19:45 Hep Bs Antibody < 3.5 (11.5-1000) L 07/04/24 19:45 Hepatitis C Antibody Non-reactive (Nonreactive) 07/04/24 19:45 EKG 1: My Interpretation: The EKG revealed normal sinus rhythm with a left axis deviation. Nonspecific changes. Voltage criteria for LVH. Other data: Myocardial perfusion imaging from today 1. Abnormal myocardial perfusion imaging with medium sized area of prior infarct with significant jennifer-infarct ischemia in inferior and inferolateral vazquez. Perfusion defect is mostly reversible. 2. LV systolic function is mildly reduced with EF of 43% Echocardiogram on 07/09/2024 LV systolic function is normal with EF of 55 to 60%. Grade 1 diastolic dysfunction. Moderate LVH Mild mitral regurgitation Mild tricuspid regurgitation A&P Assessment and plan (1) Abnormal cardiovascular stress test: I discussed the Myocardial perfusion imaging results with the patient in detail. His LV ejection fraction was 43% by the Perfusion scan but apparently was normal by echocardiogram. In view of the multiple the risk factors and the current symptoms, in order to further evaluate the coronary status, a cardiac catheterization would be appropriate. The risk of bleeding, hematoma, vascular injury, myocardial infarction, myocardial perforation, malignant cardiac arrhythmias ,CVA, and other concomitant complications were explained in detail. Patient understood this well and consented to proceed. (2) Diabetes mellitus: May continue on the current management. Qualifiers: Diabetes mellitus type: type 2 Diabetes mellitus complication status: [facility] complication Diabetes mellitus intermediate designer insulin use: without intermediate designer use Qualified Code(s): E11.9 - Type 2 diabetes mellitus without complications (3) ESRD needing dialysis: Patient is on hemodialysis. Consider dialysis after the angiogram. (4) Hypertension: The blood pressures are stage II. Seems to be getting under control. Qualifiers: Hypertension type: primary hypertension Qualified Code(s): I10 - Essential (primary) hypertension (5) Hyperlipidemia: May continue on the current treatment. Qualifiers: Hyperlipidemia type: mixed hyperlipidemia Qualified Code(s): E78.2 - Mixed hyperlipidemia Plan Based on the results of the above tests and the patient's clinical progress, further recommendations will be made. Thank you for the opportunity to evaluate this patient and make these recommendations Coding Level of Care Code 89185 Diagnoses Abnormal cardiovascular stress test R94.39 Type 2 diabetes mellitus without complication, without long-term current use of insulin E11.9 Diabetes mellitus type: type 2 Diabetes mellitus complication status: without complication Diabetes mellitus mcc insulin use: without intermediate designer use ESRD needing dialysis N18.6; Z99.2 Primary hypertension I10 Hypertension type: primary hypertension Mixed hyperlipidemia E78.2 Hyperlipidemia type: mixed hyperlipidemia
[2024-07-13] MEDS: trazodone 100 mg Tablet 400 MG PO (21:42)
[2024-07-14] VITALS (10 sets, daily range): BP systolic 150–198; BP diastolic 87–107; PULSE 64–84; RESP 12–21; TEMP 36.7–36.9; O2SAT 97–98; BMI 30.8
[2024-07-14] MEDS: ALPRAZolam 0.5 mg Tablet PO ×3 (00:07→20:24)
[2024-07-14] MEDS: famotidine 20 mg/2 mL INJ IVP ×2 (03:15→18:43)
[2024-07-14 04:59] LABS: Basophils # 0.1 10^3/uL (0.0-0.1); Basophils % 0.8 %; Eosinophils # 0.2 10^3/uL (0.0-0.8); Hematocrit 27.2 % (37-53); Lymphocytes # 1.1 10^3/uL (0.8-4.8); Lymphocytes % 17.3 %; Mean Corpuscular HGB Conc 30.9 g/dL (30-55); Mean Corpuscular Hemoglobin 27.2 pg (27-33); Mean Platelet Volume 10.5 fL (7.4-10.4); Monocytes # 0.7 10^3/uL (0.2-0.9); Monocytes % 11.2 %; Neutrophils # 4.21 10^3/uL (1.8-7.7); Neutrophils % 67.2 %; Nucleated Red Blood Cells % 0 %; Platelet Count 146 10^3/cmm (157-399); Red Blood Count 3.09 10^6/uL (3.85-5.65); Red Cell Distribution Width 13.2 % (12.1-15.1); White Blood Count 6.26 10^3/uL (3.29-11.43)
[2024-07-14 05:26] LABS: Anion Gap 13.8 (5-19); Blood Urea Nitrogen 33 mg/dL (6-20); Calcium 7.4 mg/dL (8.5-10.5); Carbon Dioxide 26 mmol/L (22-29); Chloride 103 mmol/L (98-107); Creatinine Clr Calc Pharmacy 22.2084; Glomerular Filtration Rate 10.2 mL/min (90-130); Glucose 142 mg/dL (65-115); Osmolality Calculated 298 mOsm/kg (285-295); Potassium 3.8 mmol/L (3.5-5.1); Sodium 139 mmol/L (136-145)
[2024-07-14] MEDS: sodium chloride 0.9% 1,000 ML 50 ML IV (06:52)
[2024-07-14 06:59] LABS: Glucose Point of Care 118 mg/dL (70-110)
[2024-07-14 08:35] LABS: Glucose Point of Care 118 mg/dL (70-110)
--- NOTE | 2024-07-14 08:45 | PM.PN ---
Subjective Subjective: no new c/o Medications: Reviewed: Yes Vitals/I&O/Wt Last Vital Signs Temp 98.0 F 07/14/24 05:01 Pulse 75 07/14/24 07:39 Resp 20 H 07/14/24 07:39 BP 160/93 07/14/24 07:39 Pulse Ox 98 07/14/24 05:01 O2 Del Method Room Air 07/14/24 07:39 O2 Flow Rate 2 07/09/24 07:31 FiO2 21 07/14/24 04:26 07/13/24 07/14/24 07/14/24 22:59 06:59 14:59 Intake Total 480 / 1440 Output Total 700 / 700 Balance -220 / 740 Weight last 48 hrs Weight 127.3 kg Weight 125.6 kg Physical Exam Narrative: Obese man in bed in no apparent distress Using oxygen. HEENT normocephalic atraumatic. Neck is supple no JVP. Lungs have dull bases. Heart is regular positive systolic murmur. Abdomen is soft positive bowel sounds. Extremities bilateral edema decreased Neuro awake alert oriented x 3. Patient has a right IJ permacath. Data 07/14/24 04:17 07/14/24 04:17 A&P Assessment and plan (1) Acute kidney injury superimposed on chronic kidney disease: 54-year-old gentleman with progressive renal insufficiency working diagnosis is diabetic hypertensive nephrosclerosis. 1. ESRD - HD today 2. htn-s/p nitro-drip - HD today 3. NSTEMI - s/p stress test 4. anemia- monitor hgb. epo when BP stable seen and examined w/ RN- telehealth-pt consents to telehealth and HD Attestations Medical Necessity Statement*: per oscar Coding Level of Care Code Acute Code for Chg Fwd Diagnoses Acute kidney injury superimposed on chronic kidney disease N17.9; N18.9
--- NOTE | 2024-07-14 08:46 | PM.PN ---
Subjective Subjective: s/p LHC yesterday and s/p HD after cath last night Medications: Reviewed: Yes Vitals/I&O/Wt Last Vital Signs Temp 98.0 F 07/14/24 05:01 Pulse 75 07/14/24 07:39 Resp 20 H 07/14/24 07:39 BP 160/93 07/14/24 07:39 Pulse Ox 98 07/14/24 05:01 O2 Del Method Room Air 07/14/24 07:39 O2 Flow Rate 2 07/09/24 07:31 FiO2 21 07/14/24 04:26 07/13/24 07/14/24 07/14/24 22:59 06:59 14:59 Intake Total 480 / 1440 Output Total 700 / 700 Balance -220 / 740 Weight last 48 hrs Weight 127.3 kg Weight 125.6 kg Physical Exam Narrative: Obese man in bed in no apparent distress Using oxygen. HEENT normocephalic atraumatic. Neck is supple no JVP. Lungs have dull bases. Heart is regular positive systolic murmur. Abdomen is soft positive bowel sounds. Extremities bilateral edema decreased Neuro awake alert oriented x 3. Patient has a right IJ permacath. Data 07/15/24 04:08 07/15/24 04:08 A&P Assessment and plan (1) Acute kidney injury superimposed on chronic kidney disease: 54-year-old gentleman with progressive renal insufficiency working diagnosis is diabetic hypertensive nephrosclerosis. 1. ESRD - HD per [facility] schedule 2. htn-s/p nitro-drip - HD done yesterday 3. NSTEMI - s/p stress test , s/p LHC -lad STENT 4. anemia- monitor hgb. epo when BP ELEVATED - added Nifedipine and hydralazine seen and examined w/ RN- telehealth-pt consents to telehealth and HD Attestations Medical Necessity Statement*: per oscar Coding Level of Care Code Acute Code for Chg Fwd Diagnoses Acute kidney injury superimposed on chronic kidney disease N17.9; N18.9
[2024-07-14] MEDS: sertraline 100 mg Tablet 200 MG PO (08:48)
[2024-07-14] MEDS: atorvastatin 40 mg Tablet PO (08:48)
[2024-07-14] MEDS: losartan 50 mg Tablet PO (08:49)
[2024-07-14] MEDS: aspirin 81 mg EC Tablet PO (08:49)
[2024-07-14] MEDS: duloxetine 60 mg Capsule 120 MG PO (08:49)
[2024-07-14] MEDS: tamsulosin 0.4 mg Capsule PO (08:49)
[2024-07-14] MEDS: carvedilol 12.5 mg Tablet 25 MG PO ×2 (08:49→18:43)
--- NOTE | 2024-07-14 09:16 | PC.SOCIAL ---
IMM Updated Updated pt on IMM. No questions voiced. Provided pt a copy. Initialed, dated, & timed copy in chart.
--- NOTE | 2024-07-14 09:23 | XACV_ITS ---
Exam Room: 2 Ht: 203 cm Wt: 127 kg BSA: 2.70 m2 Gender: Male : 1970 Any Known Allergies: Other Exam Priority: Routine Procedure(s): Procedure Description: Diagnostic procedure Procedure Description: PCI procedure Procedure Description: Left Heart Catheterization Procedure Description: Left ventriculography Procedure Description: Drug Eluting Coronary Stent Procedure Description: PTCA Procedure Description: Miscellaneous Procedure Description: ACT Procedure Description: Coronary Angiography Raymon LOPEZ; Diagnostic Cath Status: Elective Diagnostic Findings * The left main is a medium caliber vessel with no significant stenotic lesions. * Left anterior descending artery is a medium caliber vessel which appears to wraparound the LV apex. At the takeoff of the second septal orange picking supervisor, there was a segmental stenosis of around 70%. The rest of the artery was found to have mild diffuse intimal irregularities. The first diagonal branch is a relative small caliber vessel which was found to have around 50% proximal tubular narrowing. * The left circumflex artery is a medium caliber nondominant vessel which was found to have mild diffuse intimal irregularities. The first obtuse marginal branch was found to have around 40 to 50% diffuse tubular narrowing proximally. No other significant stenotic lesions were noted. * The right coronary artery is a medium to large caliber dominant vessel which appears to be totally occluded proximally after giving off the sinus akash branch. Grade 3 [id number] collaterals were noted during the left coronary injection. PCI Indication: NSTE - ACS Interventional Findings * Successful PCI to mid LAD. Lesion was prepared with 2.5 x 12 mm AB TREK balloon, followed by deployment of MDT FEDERICO 3.0 x 18 mm stent posted at high SANCHEZ of 12 mm. Stent was then post-dilated with serial dilatation of NC MDT EUPHORA 3.5 x 12 at 14 SANCHEZ in its entire length to ensure proper approximation. Excellent angiographic result with NATALIE-3 flow was achieved. Conclusions 1. 54-year-old white male with a history of hypertension, diabetes, dyslipidemia, end-stage renal disease, on hemodialysis, started having new onset onset of chest pain. He had an abnormal Myocardial perfusion imaging revealing myocardial scarring with ischemia in the distribution of the right coronary artery. For further evaluation of his coronary status, cardiac catheterization was recommended. Patient underwent left heart catheterization with a left and right coronary angiogram and LV angiogram today. The findings are as follows. 2. Short left main with no significant lesions. Left anterior descending artery was found to have a 70% segmental stenosis at the takeoff of the second septal orange picking supervisor. 40 to 50% tubular narrowing in the proximal segments of the first diagonal and first obtuse marginal branch. Total occlusion of the right coronary artery proximally, after the takeoff of the sinus akash branch. Grade 3 [id number] collaterals. LVEDP of 28 mmHg. LV ejection fraction of 50%.. 3. I reviewed and discussed the cardiac catheterization data with Dr. Flores. It was thought to be appropriate to consider PCI of the mid LAD lesion. Dr. Flores took over further management of this patient at this point. 4. Successful PCI to mid LAD using drug-eluting stent as described above. Recommendations * 1-Return to inpatient for close monitoring and routine cath care 2-Risk factor modification for secondary prevention 3-Statin with LDL goal <70 mg/dl, aspirin 81 mg life-long 4-Patient was pre-loaded with 180mg of Brillinta. Continue Brillinta 90mg p.o. twice daily for at least one year. We will assess at the end of one year again to continue it further or not 5-Continue optimal medical management 6-Follow up with Dr. Ennis in four weeks and with cardiology nurse practitioner in 1 week and primary care physician 2 weeks. Interventional RX Recommendation: PCI w/o planned CABG Diagnostic RX Recommendation: none Ventriculography Ejection Fraction: 50.0 % LV EDP: 28 mmHg Left Ventriculography Findings: * The LV gram was performed in the WAGNER projection. The LV cavity appeared to be of normal size. There was no filling defect. The basal inferior wall segment was found to have mild hypokinesia. No significant mitral valve prolapse or mitral regurgitation. The LV ejection fraction was 50%. The LVEDP was 28 mmHg. Pressures Phase:Rest AO : 137 / 95 ( 108 ) @ 1:17:00 PM 161 / 91 ( 121 ) @ 1:28:00 PM 172 / 77 ( 120 ) @ 1:28:00 PM 163 / 83 ( 113 ) @ 1:29:00 PM 164 / 86 ( 117 ) @ 1:59:00 PM LV : 154 / 6 / 28 @ 1:26:00 PM 159 / 11 / 32 @ 1:28:00 PM 159 / 11 / 32 @ 1:28:00 PM Valves Phase:DefaultPhase AV : 0.0 @ 1:36:28 PM 0.0 @ 1:36:28 PM AV Mean Gradient: 0.0 @ 1:36:28 PM 0.0 @ 1:36:28 PM Clinical Evaluation EBL: 5mL-10mL Procedural Details Procedure Consent Obtained. Pre-Procedure Time Out. Identified patient by full name and date of as verbalized by the patient/guarantor. Does the consent match the physician's order: Yes. Accurate & Complete Informed Consent: Yes. Inpatient/Outpatient History & Physical on Chart: Yes. If H&P is completed, is and addenduem needed: No; If yes, is the addendum complete: N/A. Visualize and Verify Site with Patient/Guarantor: N/A. Relevant Radiology Images available: Yes. Pre-op teaching completed and patient verbalized understanding. The risks, benefits, and alternatives of sedation and/or procedure were discussed by physician. The patient agrees to continue. Procedure started. Admit Source: In Patient. CSHA Clinical Fraility Score: 3: Managing Well. Service Station Equipment Mechanic Indications: Worsening Angina. Chest Pain Symptom Assessment: Typical Angina Symptoms. Correct patient, site and procedure confirmed by cath team. Current diagnosis: Chest Pain, Abnormal stress test. PERRLA. Strong, equal hand muffle operator bilaterally. Lungs clear x 5 lobes. IV Site on Arrival: 20 gauge in the left wrist. IV Fluids: 0.9% NaCl at KVO. 300 mL infused prior to bolt labeler. Pre Procedural Pulses: bilateral radial was 3+. Pre Procedural Pulses: bilateral dorsalis pedis was 3+. Pre Procedural Pulses: bilateral posterior tibial was 3+. Oxygen started at 2liters/min via nasal canula. right radial was prepped with chloroprep then draped in the usual sterile fashion. right groin was prepped with chloroprep then draped in the usual sterile fashion. Physician notified. Baseline sample Acquired. HR: 71 BPM. Physician arrived. Physician scrubbed in. Immediate Pre-Procedure Time Out. Correct Patient: Yes; Correct Procedure: Yes; Correct Site: Yes; Correct Patient Position: Yes; Correct Supplies: Yes; Dried Flammable Prep: Yes; Blood Products Available: No;. Lidocaine 1% infiltrated to the right radial. Arterial access obtained. A 5 pakistani 125cm JL4 catheter in over exchange wire. Multiple views taken of left coronary artery. Catheter removed over the exchange wire. A 5 pakistani 125cm JR4 catheter in over wire. Multiple views taken of right coronary artery. Catheter removed over the exchange wire. A 5 pakistani 125 cm Straight Pig catheter in over wire. EDP Sample taken: LV 154/6,28; HR: 70 BPM; SpO2: 94%. LV gram performed in WAGNER @ 18 mL/second for a total of 36 mL. EDP Sample taken: LV 159/11,32; HR: 69 BPM; SpO2: 97%. Pullback taken: LV 159/11,32; AO 161/91(121); Mean: 0mmHg, Peak to Peak: 0mmHg, SEP: 11sec/min; HR: 71 BPM; SpO2: 97%. Catheter removed over the exchange wire. Dr. Flores called to lab to review cine films. Side port of sheath attached to Normal Saline flush at KVO to maintain patency. ACT drawn. Results 68 seconds. Therapeutic limits - pre-heparin administration 90-150 seconds and monitoring heparin during a vascular procedure >250 seconds. ACT drawn. Results 176 seconds. Therapeutic limits - pre-heparin administration 90-150 seconds and monitoring heparin during a vascular procedure >250 seconds. Mathieu Ma RN was relieved by Javi Higuera RN COSMETOLOGY EDUCATOR as circulating nurse. Dr. Flores scrubbed in to perform intervention. 6 pakistani 125 cm XB 3.5 guide catheter was inserted over the wire. Runthrough guidewire was advanced through the guide catheter to lesion in the mid LAD. Balloon inserted to lesion in the mid LAD. Balloon unable to reach lesion. Undeployed balloon out over wire. Runthrough wire out. Guide catheter out over exchange wire. 6 pakistani CLS 3.5 guide catheter was inserted over the wire. Runthrough guidewire was advanced through the guide catheter to lesion in the mid LAD. Balloon inserted to lesion in the mid LAD. Inflation number : 1 A AB TREK 2.50X12 RX BALLOON was prepped and advanced across the Mid LAD , then inflated to 8 SANCHEZ for 0:18 seconds. Inflation number: 2 The AB TREK 2.50X12 RX BALLOON was reinflated across the Mid LAD, to 8 SANCHEZ for 0:13 seconds. Results checked. Inflation number: 3 The AB TREK 2.50X12 RX BALLOON was reinflated across the Mid LAD, to 12 SANCHEZ for 0:11 seconds. Balloon out. Stent inserted to lesion in the mid LAD. Inflation Number : 4 A MDT R FEDERICO 3.0X18 SAKSHI -Lot Number#[id number] EXP 07-07-2026 was prepped and advanced across the Mid LAD. The stent was deployed at 12 SANCHEZ for 0:15 seconds. Stent balloon out over wire. Balloon inserted to lesion in the mid LAD. Inflation number : 5 A MDT NC EUPHORA RX [id number] BALLOON was prepped and advanced across the Mid LAD , then inflated to 14 SANCHEZ for 0:22 seconds. Inflation number: 6 The MDT NC EUPHORA RX [id number] BALLOON was reinflated across the Mid LAD, to 12 SANCHEZ for 0:07 seconds. Inflation number: 7 The MDT NC EUPHORA RX [id number] BALLOON was reinflated across the Mid LAD, to 14 SANCHEZ for 0:12 seconds. Inflation number: 8 The MDT NC EUPHORA RX [id number] BALLOON was reinflated across the Mid LAD, to 14 SANCHEZ for 0:09 seconds. Balloon out. Results checked. Wire out. ACT drawn. Results 252 seconds. Therapeutic limits - pre-heparin administration 90-150 seconds and monitoring heparin during a vascular procedure >250 seconds. Guide catheter out. Wire out. A TR Band was successful obtaining hemostatsis at the Right Radial artery insertion site. Post Procedure: Pulses reassessed and unchanged. PERRLA. Strong, equal hand muffle operator bilaterally. No VTE prophylaxis required. Medication's Wasted: Lidocaine 1% = 18 mL. Medication's Wasted: Nitro = 49.8 mg. Medication's Wasted: Heparin = 2000 units. Total IV fluids: 100 mL. Post-op diagnosis: Severe mid LAD stenosis , status post PCI placement of 1 stent. Complications: None. Estimated blood loss: 5mL-10mL. Responsiveness - Normal response to verbal stimuli; alert and oriented, PERRLA. Airway - Unaffected, no intervention required; spontaneous ventilation. Circulation: W/N/L, pulses unchanged. Nausea/Vomiting: No. Procedure completed. Patient transferred by bed to 1st floor. Vital chart was stopped. Access Site Site: Right Radial artery Sheath Size: 6 Fr Hemostasis Method: TR Band Hemostasis Success: Successful Procedure Medications Start: 12:01 PM Stop: 12:01 PM Medication: Fentanyl Amount: 50 mcg Route: I.V. Start: 12:01 PM Stop: 12:01 PM Medication: Versed Amount: 1 mg Route: I.V. Start: 12:11 PM Stop: 12:11 PM Medication: Nitrogylcerin Amount: 200 mcg Route: I.A. Start: 12:13 PM Stop: 12:13 PM Medication: Heparin Amount: 5000 units Route: I.V. Start: 12:14 PM Stop: 12:14 PM Medication: Versed Amount: 1 mg Route: I.V. Start: 12:37 PM Stop: 12:37 PM Medication: Fentanyl Amount: 25 mcg Route: I.V. Start: 12:52 PM Stop: 12:52 PM Medication: Plavix Amount: 600 mg Route: P.O. Start: 12:56 PM Stop: 12:56 PM Medication: Versed Amount: 1 mg Route: I.V. Start: 12:56 PM Stop: 12:56 PM Medication: Fentanyl Amount: 25 mcg Route: I.V. Start: 12:56 PM Stop: 12:56 PM Medication: Heparin Amount: 7000 units Route: I.V. Start: 1:26 PM Stop: 1:26 PM Medication: Versed Amount: 1 mg Route: I.V. Start: 1:33 PM Stop: 1:33 PM Medication: Heparin Amount: 2000 units Route: I.V. I, the attending physician, have reviewed and verified all procedure medications. Yes, all medications given per verbal order History/Risk Factors Hypertension: Yes Dyslipidemia: Yes Peripheral Arterial Disease (PAD): No Myocardial Infarction ([place]): No Obesity: Yes Renal Disease: No Tobacco Use: Current/Recent(w/in 1 year) Prior Interventions PCI: No CABG: No Valve Surgery: No Report Signatures Interventional Workflow Finalized by Shantel Flores MD on 07/15/2024 05:19 PM Diagnostic Workflow Finalized by Dr Kareem Ennis MD [facility] on 07/14/2024 07:58 PM
--- NOTE | 2024-07-14 10:30 | PM.PN ---
Subjective Subjective: No acute overnight events noted. Seen him at bedside this morning, denies any chest pain or palpitations. Was able to sleep last night. Blood pressure has been better controlled with systolic of 160. Medications: Reviewed: Yes Vitals/I&O/Wt Last Vital Signs Temp 98.0 F 07/14/24 05:01 Pulse 75 07/14/24 07:39 Resp 20 H 07/14/24 07:39 BP 160/93 07/14/24 07:39 Pulse Ox 98 07/14/24 05:01 O2 Del Method Room Air 07/14/24 07:39 O2 Flow Rate 2 07/09/24 07:31 FiO2 21 07/14/24 04:26 07/13/24 07/14/24 07/14/24 22:59 06:59 14:59 Intake Total 480 / 1440 Output Total 700 / 700 Balance -220 / 740 Weight last 48 hrs Weight 127.3 kg Weight 125.6 kg Physical Exam Narrative: He is alert awake oriented x 3, obese, not in acute distress but seems highly anxious. Chest clear to auscultation bilaterally, HD catheter in place, pressure dressing present but bleeding still seen. Cardiovascular normal heart sounds Abdomen NAD Extremities no edema noted bilateral lower extremity Data 07/14/24 04:17 07/14/24 04:17 A&P Assessment and plan (1) Acute kidney injury superimposed on chronic kidney disease: (2) Diabetes mellitus: Qualifiers: Diabetes mellitus complication status: without complication Diabetes mellitus extermination supervisor insulin use: without extermination supervisor use Diabetes mellitus type: type 2 Qualified Code(s): E11.9 - Type 2 diabetes mellitus without complications (3) Hypertension: (4) Peripheral neuropathy: (5) Morbid obesity: (6) Generalized anxiety disorder: (7) Major depressive disorder, recurrent severe without psychotic features: (8) GERD (gastroesophageal reflux disease): Plan Abimael Cochran is a 54 year old male with past medical history of uncontrolled hypertension, hyperlipidemia, major depressive disorder, generalized anxiety disorder, chronic low back pain, type 2 diabetes mellitus was referred by primary care physician for abnormal labs and found to have creatinine of 6.9, potassium of 3.0, BUN 49. Admit to [facility] Acute on chronic kidney disease- Nephrology consulted in ED Plan for hydration with IV fluids at 125cc/hr Follow up nephrology for further recommendations. Follow-up renal ultrasound Uncontrolled hypertension-systolic blood pressure in high 190s Also has component of anxiety, hence will do Xanax 0.5 mg 3 times daily as needed Captopril, diltiazem and metoprolol on hold secondary to Tommie Continue Coreg 12.5 mg twice daily, hydralazine 50 mg 3 times daily and nifedipine ER 30 mg daily as per nephrology. Monitor for now. Continue aspirin and Lipitor Type 2 diabetes mellitus-will continue with insulin glargine 60 units twice daily Monitor fingersticks 3 times daily with meals and bedtime Major depressive disorder/RODERICK-continue EXCEL DEVELOPER Cymbalta, Zoloft, trazodone and Rexulti Chronic low back pain-continue EXCEL DEVELOPER pregabalin GI prophylaxis with IV Pepcid DVT prophylaxis with SCD N.p.o. for now for possible HD catheter later today. 07/05-creatinine still 6.7 today. Spoke with nephrology, wants to monitor for 1 more day. In view of normal renal ultrasound, normal potassium levels, patient not uremic, as per nephrology patient can have an outpatient kidney biopsy and further intervention if needed. Blood pressure better controlled on current regimen. Will continue to monitor. 07/06-creatinine trending up to 7.3 today. Spoke with nephrology plan for permacath and initiation of hemodialysis. Surgery consulted. N.p.o. for procedure for now. Will continue Coreg, hydralazine and nifedipine for blood pressure control. Patient educated and counseled about plan of care.Had low sugars overnight, hence will change lantus to daily for now. 07/07-he received hemodialysis this morning. Creatinine trending down to 6.2 today. Blood pressure improved post dialysis, 148/82 on Coreg, hydralazine and nifedipine. Will continue to monitor and follow-up nephrology for further recommendations. 07/08-was plan to discharge today after hemodialysis but was found to have systolic blood pressure in 190s all throughout the hemodialysis session. Also complained of chest pain initially. Given IV hydralazine 10 mg x 1 with no significant change. Also given p.o. hydralazine 25 mg additional dose with no significant change hence will do Procardia XL 30 mg x 1 dose now. Check EKG and follow up. 07/09-discharge plan postponed due to uncontrolled hypertension/hypertensive urgency. Blood pressure still between 1 70-1 90s, started on nitro drip yesterday afternoon, continue nitro drip for now. 3 sets of troponins elevated at 118, 117, 123 but EKG did not show ST elevation. Since he is on nitro drip, will plan chemical stress test once blood pressure controlled. No more episodes of chest pain noted. Will do anticoagulation with subcutaneous Lovenox 120 mg daily as per creatinine clearance. Continue Coreg, hydralazine and Procardia for now. 07/10-blood pressure still 172/82. Will continue nitro drip. Blood pressure medications adjusted as per nephro, on Coreg 12.5 twice daily, Procardia XL 60 mg daily and Cozaar 50 mg daily. Will increase Coreg to 25 mg twice a day and titrate down nitro drip. Once off nitro drip will plan for stress test. Continue therapeutic Lovenox. 07/11-blood pressure still elevated and on nitro drip. Will follow-up nephrology for medication adjustment. Permacath site bleeding likely secondary to anticoagulation, will discontinue Lovenox. HD session today as per nephro. Once blood pressure stabilized, we will plan for stress test. 07/12-blood pressure slightly improved to 158/79. Nitro drip discontinued at 12 noon on 07/11. Will plan for stress test in a.m. he is n.p.o. past midnight. Going for hemodialysis today 07/13-s/p stress test today. Stress test positive. Need cardiology consult for further recommendations and intervention if needed. Attestations Medical Necessity Statement*: He needs continued hospitalization for management for NSTEMI with further workup with chemical stress test. Hypertensive urgency resolved, blood pressure stable on current oral medications and daily hemodialysis. Time Spent in Patient Care: 20 minutes Coding Level of Care Code Acute Code for g Fwd Diagnoses Acute kidney injury superimposed on chronic kidney disease N17.9; N18.9 Type 2 diabetes mellitus without complication, without long-term current use of insulin E11.9 Diabetes mellitus complication status: without complication Diabetes mellitus group home insulin use: without extermination supervisor use Diabetes mellitus type: type 2 Hypertension I10 Peripheral neuropathy G62.9 Morbid obesity E66.01 Generalized anxiety disorder F41.1 Major depressive disorder, recurrent severe without psychotic features F33.2 GERD (gastroesophageal reflux disease) K21.9 Time Spent (min) 20
--- NOTE | 2024-07-14 10:38 | P.PN_ITS ---
Subjective 2 Subjective: No acute events noted so far. Seen him at bedside this morning denies any new complaints. Medications: Reviewed: Yes Vitals/I&O/Wt Last Vital Signs Temp 98.0 F 07/14/24 05:01 Pulse 75 07/14/24 07:39 Resp 20 H 07/14/24 07:39 BP 160/93 07/14/24 07:39 Pulse Ox 98 07/14/24 05:01 O2 Del Method Room Air 07/14/24 07:39 O2 Flow Rate 2 07/09/24 07:31 FiO2 21 07/14/24 04:26 07/13/24 07/14/24 07/14/24 22:59 06:59 14:59 Intake Total 480 / 1440 Output Total 700 / 700 Balance -220 / 740 Weight last 48 hrs Weight 127.3 kg Weight 125.6 kg Physical Exam 2 Narrative: He is alert awake oriented x 3, obese, not in acute distress but seems highly anxious. Chest clear to auscultation bilaterally, HD catheter in place, pressure dressing present but bleeding still seen. Cardiovascular normal heart sounds Abdomen NAD Extremities no edema noted bilateral lower extremity Data 07/14/24 04:17 07/14/24 04:17 A&P Assessment and plan (1) Acute kidney injury superimposed on chronic kidney disease: (2) Diabetes mellitus: Qualifiers: Diabetes mellitus complication status: without complication Diabetes mellitus fdc insulin use: without bed bug exterminator use Diabetes mellitus type: t ype 2 Qualified Code(s): E11.9 - Type 2 diabetes mellitus without complications (3) Hypertension: (4) Peripheral neuropathy: (5) Morbid obesity: (6) Generalized anxiety disorder: (7) Major depressive disorder, recurrent severe without psychotic features: (8) GERD (gastroesophageal reflux disease): Plan Abimael Cochran is a 54 year old male with past medical history of uncontrolled hypertension, hyperlipidemia, major depressive disorder, generalized anxiety disorder, chronic low back pain, type 2 diabetes mellitus was referred by primary care physician for abnormal labs and found to have creatinine of 6.9, potassium of 3.0, BUN 49. Admit to [facility] Acute on chronic kidney disease- Nephrology consulted in ED Plan for hydration with IV fluids at 125cc/hr Follow up nephrology for further recommendations. Follow-up renal ultrasound Uncontrolled hypertension-systolic blood pressure in high 190s Also has component of anxiety, hence will do Xanax 0.5 mg 3 times daily as needed Captopril, diltiazem and metoprolol on hold secondary to Tommie Continue Coreg 12.5 mg twice daily, hydralazine 50 mg 3 times daily and nifedipine ER 30 mg daily as per nephrology. Monitor for now. 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 for now for possible HD catheter later today. 07/05-creatinine still 6.7 today. Spoke with nephrology, wants to monitor for 1 more day. In view of normal renal ultrasound, normal potassium levels, patient not uremic, as per nephrology patient can have an outpatient kidney biopsy and further intervention if needed. Blood pressure better controlled on current regimen. Will continue to monitor. 07/06-creatinine trending up to 7.3 today. Spoke with nephrology plan for permacath and initiation of hemodialysis. Surgery consulted. N.p.o. for procedure for now. Will continue Coreg, hydralazine and nifedipine for blood pressure control. Patient educated and counseled about plan of care.Had low sugars overnight, hence will change lantus to daily for now. 07/07-he received hemodialysis this morning. Creatinine trending down to 6.2 today. Blood pressure improved post dialysis, 148/82 on Coreg, hydralazine and nifedipine. Will continue to monitor and follow-up nephrology for further recommendations. 07/08-was plan to discharge today after hemodialysis but was found to have systolic blood pressure in 190s all throughout the hemodialysis session. Also complained of chest pain initially. Given IV hydralazine 10 mg x 1 with no significant change. Also given p.o. hydralazine 25 mg additional dose with no significant change hence will do Procardia XL 30 mg x 1 dose now. Check EKG and follow up. 07/09-discharge plan postponed due to uncontrolled hypertension/hypertensive urgency. Blood pressure still between 1 70-1 90s, started on nitro drip yesterday afternoon, continue nitro drip for now. 3 sets of troponins elevated at 118, 117, 123 but EKG did not show ST elevation. Since he is on nitro drip, will plan chemical stress test once blood pressure controlled. No more episodes of chest pain noted. Will do anticoagulation with subcutaneous Lovenox 120 mg daily as per creatinine clearance. Continue Coreg, hydralazine and Procardia for now. 07/10-blood pressure still 172/82. Will continue nitro drip. Blood pressure medications adjusted as per nephro, on Coreg 12.5 twice daily, Procardia XL 60 mg daily and Cozaar 50 mg daily. Will increase Coreg to 25 mg twice a day and titrate down nitro drip. Once off nitro drip will plan for stress test. Continue therapeutic Lovenox. 07/11-blood pressure still elevated and on nitro drip. Will follow-up nephrology for medication adjustment. Permacath site bleeding likely secondary to anticoagulation, will discontinue Lovenox. HD session today as per nephro. Once blood pressure stabilized, we will plan for stress test. 07/12-blood pressure slightly improved to 158/79. Nitro drip discontinued at 12 noon on 07/11. Will plan for stress test in a.m. he is n.p.o. past midnight. Going for hemodialysis today 07/13-s/p stress test today. Stress test positive. Need cardiology consult for further recommendations and intervention if needed. 07/14-cardiology consult appreciated. He is n.p.o. past midnight for coronary angiogram this morning. Will follow-up cardiology for further recommendations. Will have hemodialysis post cath. Monitor for blood pressure. Attestations 2 Medical Necessity Statement*: Awaiting for coronary angiogram this morning. Time Spent in Patient Care: 10 minutes Coding Level of Care Code Acute Code for [facility] Diagnoses Acute kidney injury superimposed on chronic kidney disease N17.9; N18.9 Type 2 diabetes mellitus without complication, without long-term current use of insulin E11.9 Diabetes mellitus complication status: without complication Diabetes mellitus bed bug exterminator insulin use: without bed bug exterminator use Diabetes mellitus type: type 2 Hypertension I10 Peripheral neuropathy G62.9 Morbid obesity E66.01 Generalized anxiety disorder F41.1 Major depressive disorder, recurrent severe without psychotic features F33.2 GERD (gastroesophageal reflux disease) K21.9 Time Spent (min) 10
--- NOTE | 2024-07-14 10:42 | P.PN_ITS ---
Subjective 2 Subjective: no acute overnight events noted. Medications: Reviewed: Yes Vitals/I&O/Wt Last Vital Signs Temp 98.0 F 07/14/24 05:01 Pulse 75 07/14/24 07:39 Resp 20 H 07/14/24 07:39 BP 160/93 07/14/24 07:39 Pulse Ox 98 07/14/24 05:01 O2 Del Method Room Air 07/14/24 07:39 O2 Flow Rate 2 07/09/24 07:31 FiO2 21 07/14/24 04:26 07/13/24 07/14/24 07/14/24 22:59 06:59 14:59 Intake Total 480 / 1440 Output Total 700 / 700 Balance -220 / 740 Weight last 48 hrs Weight 127.3 kg Weight 125.6 kg Physical Exam 2 Narrative: He is alert awake oriented x 3, obese, not in acute distress but seems highly anxious. Chest clear to auscultation bilaterally, HD catheter in place, pressure dressing present but bleeding still seen. Cardiovascular normal heart sounds Abdomen NAD Extremities no edema noted bilateral lower extremity Data 07/14/24 04:17 07/14/24 04:17 A&P Assessment and plan (1) Acute kidney injury superimposed on chronic kidney disease: (2) Diabetes mellitus: Qualifiers: Diabetes mellitus complication status: without complication Diabetes mellitus senior care insulin use: without senior care use Diabetes mellitus type: t ype 2 Qualified Code(s): E11.9 - Type 2 diabetes mellitus without complications (3) Hypertension: (4) Peripheral neuropathy: (5) Morbid obesity: (6) Generalized anxiety disorder: (7) Major depressive disorder, recurrent severe without psychotic features: (8) GERD (gastroesophageal reflux disease): Plan Abimael Cochran is a 54 year old male with past medical history of uncontrolled hypertension, hyperlipidemia, major depressive disorder, generalized anxiety disorder, chronic low back pain, type 2 diabetes mellitus was referred by primary care physician for abnormal labs and found to have creatinine of 6.9, potassium of 3.0, BUN 49. Admit to [facility] Acute on chronic kidney disease- Nephrology consulted in ED Plan for hydration with IV fluids at 125cc/hr Follow up nephrology for further recommendations. Follow-up renal ultrasound Uncontrolled hypertension-systolic blood pressure in high 190s Also has component of anxiety, hence will do Xanax 0.5 mg 3 times daily as needed Captopril, diltiazem and metoprolol on hold secondary to Tommie Continue Coreg 12.5 mg twice daily, hydralazine 50 mg 3 times daily and nifedipine ER 30 mg daily as per nephrology. Monitor for now. 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 for now for possible HD catheter later today. 07/05-creatinine still 6.7 today. Spoke with nephrology, wants to monitor for 1 more day. In view of normal renal ultrasound, normal potassium levels, patient not uremic, as per nephrology patient can have an outpatient kidney biopsy and further intervention if needed. Blood pressure better controlled on current regimen. Will continue to monitor. 07/06-creatinine trending up to 7.3 today. Spoke with nephrology plan for permacath and initiation of hemodialysis. Surgery consulted. N.p.o. for procedure for now. Will continue Coreg, hydralazine and nifedipine for blood pressure control. Patient educated and counseled about plan of care.Had low sugars overnight, hence will change lantus to daily for now. 07/07-he received hemodialysis this morning. Creatinine trending down to 6.2 today. Blood pressure improved post dialysis, 148/82 on Coreg, hydralazine and nifedipine. Will continue to monitor and follow-up nephrology for further recommendations. 07/08-was plan to discharge today after hemodialysis but was found to have systolic blood pressure in 190s all throughout the hemodialysis session. Also complained of chest pain initially. Given IV hydralazine 10 mg x 1 with no significant change. Also given p.o. hydralazine 25 mg additional dose with no significant change hence will do Procardia XL 30 mg x 1 dose now. Check EKG and follow up. 07/09-discharge plan postponed due to uncontrolled hypertension/hypertensive urgency. Blood pressure still between 1 70-1 90s, started on nitro drip yesterday afternoon, continue nitro drip for now. 3 sets of troponins elevated at 118, 117, 123 but EKG did not show ST elevation. Since he is on nitro drip, will plan chemical stress test once blood pressure controlled. No more episodes of chest pain noted. Will do anticoagulation with subcutaneous Lovenox 120 mg daily as per creatinine clearance. Continue Coreg, hydralazine and Procardia for now. 07/10-blood pressure still 172/82. Will continue nitro drip. Blood pressure medications adjusted as per nephro, on Coreg 12.5 twice daily, Procardia XL 60 mg daily and Cozaar 50 mg daily. Will increase Coreg to 25 mg twice a day and titrate down nitro drip. Once off nitro drip will plan for stress test. Continue therapeutic Lovenox. 07/11-blood pressure still elevated and on nitro drip. Will follow-up nephrology for medication adjustment. Permacath site bleeding likely secondary to anticoagulation, will discontinue Lovenox. HD session today as per nephro. Once blood pressure stabilized, we will plan for stress test. 07/12-blood pressure slightly improved to 158/79. Nitro drip discontinued at 12 noon on 07/11. Will plan for stress test in a.m. he is n.p.o. past midnight. Going for hemodialysis today 07/13-s/p stress test today. Stress test positive. Need cardiology consult for further recommendations and intervention if needed. Attestations 2 Medical Necessity Statement*: He needs continued hospitalization for management for NSTEMI with further workup with chemical stress test. Hypertensive urgency resolved, blood pressure stable on current oral medications and daily hemodialysis. Time Spent in Patient Care: 20 minutes Coding Level of Care Code [facility] Diagnoses Acute kidney injury superimposed on chronic kidney disease N17.9; N18.9 Type 2 diabetes mellitus without complication, without long-term current use of insulin E11.9 Diabetes mellitus complication status: without complication Diabetes mellitus emergency medical technician insulin use: without senior care use Diabetes mellitus type: type 2 Hypertension I10 Peripheral neuropathy G62.9 Morbid obesity E66.01 Generalized anxiety disorder F41.1 Major depressive disorder, recurrent severe without psychotic features F33.2 GERD (gastroesophageal reflux disease) K21.9 Time Spent (min) 20
--- NOTE | 2024-07-14 12:41 | PM.PN ---
Subjective Subjective: The patient is feeling okay. No chest pain or shortness of breath. Medications: Medication Review Details: Current Medications Acetaminophen (Acetaminophen 325 Mg Tablet) 650 mg PO Q4H PRN PRN Reason: MILD PAIN OR INCREASE TEMP Last Admin: 07/10/24 03:11 Dose: 650 mg Albuterol Sulfate (Albuterol 2.5 Mg/3 Ml Neb) 2.5 mg INHALATION ONCE PRN PRN Reason: WHEEZING Alprazolam (Alprazolam 0.5 Mg Tablet) 0.5 mg PO TID PRN PRN Reason: ANXIETY Last Admin: 07/14/24 08:49 Dose: 0.5 mg Aspirin (Aspirin 81 Mg Ec Tablet) 81 mg PO DAILY [facility] Last Admin: 07/14/24 08:49 Dose: 81 mg Atorvastatin Calcium (Atorvastatin 40 Mg Tablet) 40 mg PO DAILY [facility] Last Admin: 07/14/24 08:48 Dose: 40 mg Carvedilol (Carvedilol 12.5 Mg Tablet) 25 mg PO BID [facility] Last Admin: 07/14/24 08:49 Dose: 25 mg Duloxetine HCl (Duloxetine 60 Mg Capsule) 120 mg PO DAILY [facility] Last Admin: 07/14/24 08:49 Dose: 120 mg Famotidine (Famotidine 20 Mg/2 Ml Inj) 20 mg IVP Q12H [facility] Last Admin: 07/14/24 03:15 Dose: 20 mg Famotidine (Famotidine 20 Mg/2 Ml Inj) 20 mg IVP ONCE PRN PRN Reason: HEARTBURN Glucagon (Glucagon 1 Mg/Ml Kit 1 Ml) 1 mg IM ONCE PRN; Protocol PRN Reason: Adult Acute Hypoglycemia Nursing Prot. Dextrose (D5w) 500 mls @ 0 mls/hr IV ONCE PRN; Protocol PRN Reason: Adult Acute Hypoglycemia Prot Dextrose (D10w) 125 mls @ 750 mls/hr IV PRN PRN; Protocol PRN Reason: Adult Acute Hypoglycemia Nursing Protocol Dextrose (D10w) 250 mls @ 1,000 mls/hr IV PRN PRN; Protocol PRN Reason: Adult Acute Hypoglycemia Nursing Protocol Sodium Chloride (Sodium Chloride 0.9%) 1,000 mls @ 0 mls/hr IV .Q0M PRN PRN Reason: hypotension or symptomatic Nitroglycerin/Dextrose (Nitroglycerin Drip) 50 mg in 250 mls @ 0 mls/hr IV .Q0M [facility]; Protocol Last Titration: 07/11/24 12:22 Dose: 0 mcg/min, 0 mls/hr Albumin Human (Albumin) 12.5 gm in 50 mls @ 60 mls/hr IV PRN PRN PRN Reason: Hypotension and/or symptomatic Sodium Chloride (Sodium Chloride 0.9%) 1,000 mls @ 50 mls/hr IV .Q20H ONE Stop: 07/15/24 01:59 Last Admin: 07/14/24 06:52 Dose: 50 mls/hr Sodium Chloride (Sodium Chloride 0.9%) 1,000 mls @ 0 mls/hr IV .Q0M PRN PRN Reason: hypotension or symptomatic Albumin Human (Albumin) 12.5 gm in 50 mls @ 60 mls/hr IV PRN PRN PRN Reason: Hypotension and/or symptomatic Insulin Glargine (Insulin Glargine 100 Units/1 Ml) 40 unit SUBCUT DAILY [facility] Insulin Glargine (Insulin Glargine 100 Units/1 Ml) 40 unit SUBCUT BEDTIME [facility] Last Admin: 07/12/24 20:45 Dose: 40 unit Ipratropium [place] (Ipratropium 0.5 Mg/2.5 Ml Neb) 0.5 mg INHALATION ONCE PRN PRN Reason: WHEEZING Losartan Potassium (Losartan 50 Mg Tablet) 50 mg PO DAILY [facility] Last Admin: 07/14/24 08:49 Dose: 50 mg Metoclopramide HCl (Metoclopramide 5 Mg/Ml Sdv 2 Ml) 10 mg IVP ONCE PRN PRN Reason: N/V if zofran ineffective Ondansetron HCl (Ondansetron 2 Mg/Ml Sdv 2 Ml) 4 mg IVP Q5M PRN PRN Reason: NAUSEA AND VOMITING Last Admin: 07/13/24 19:57 Dose: 4 mg Ondansetron HCl (Ondansetron 2 Mg/Ml Sdv 2 Ml) 4 mg IVP Q2M PRN PRN Reason: NAUSEA Scopolamine (Scopolamine 1.5 Patch) 1 patch TRANSDERMA ONCE PRN PRN Reason: Nausea/ Vomiting Prophylaxis Sertraline HCl (Sertraline 100 Mg Tablet) 200 mg PO DAILY [facility] Last Admin: 07/14/24 08:48 Dose: 200 mg Tamsulosin HCl (Tamsulosin 0.4 Mg Capsule) 0.4 mg PO DAILY [facility] Last Admin: 07/14/24 08:49 Dose: 0.4 mg Terazosin HCl (Terazosin 1 Mg Capsule) 1 mg PO DAILY [facility] Last Admin: 07/14/24 08:49 Dose: 1 mg Trazodone HCl (Trazodone 100 Mg Tablet) 400 mg PO BEDTIME PRN PRN Reason: insomnia Last Admin: 07/13/24 21:42 Dose: 400 mg Vitals/I&O/Wt Last Vital Signs Temp 98.0 F 07/14/24 05:01 Pulse 70 07/14/24 11:11 Resp 20 H 07/14/24 11:11 BP 187/107 07/14/24 11:11 Pulse Ox 97 07/14/24 11:11 O2 Del Method Room Air 07/14/24 11:11 O2 Flow Rate 2 07/09/24 07:31 FiO2 21 07/14/24 04:26 07/13/24 07/14/24 07/14/24 22:59 06:59 14:59 Intake Total 480 / 1440 Output Total 700 / 700 Balance -220 / 740 Weight last 48 hrs Weight 280 lb 10.375 oz Weight 276 lb 14.409 oz Physical Exam Narrative: GENERAL: The patient is alert and oriented times three. Not in any acute distress. HEENT: No significant pallor, icterus or lymphadenopathy.Oral cavity: There are no mucous membrane lesions. NECK: Trachea appears to be central. No masses noted. No JVD or thyromegaly appreciated. RESPIRATORY: Chest is symmetrical. No intercostals muscle retraction or any accessory muscle activation. There is no chest wall tenderness. Breath sounds are heard bilaterally. No rales or rhonchi heard. No evidence of any consolidation. Dialysis catheter in the right subclavian vein BREASTS: Deferred. HEART: The heart sounds are normal. No S3 or S4. No significant murmurs. No pericardial rub ABDOMEN: No vessel pulsations or distention. No tenderness. No organomegaly appreciated. Bowel sounds are normally heard. : Deferred. RECTAL: Deferred. LYMPHATIC: No lymphadenopathy noted in the neck. EXTREMITIES: No edema or cyanosis. No clubbing. MUSCULOSKELETAL: No acute joint deformities or swelling SKIN: There are no significant rashes or ecchymosis NEUROPSYCHIATRIC: The patient is alert and oriented x3. Appears to be in a good mood. No tremors or rigidity noted. Data 07/14/24 04:17 07/14/24 04:17 Other Labs: Laboratory Last Values WBC 6.26 10^3/uL (3.29-11.43) 07/14/24 04:17 RBC 3.09 10^6/uL (3.85-5.65) L 07/14/24 04:17 Hgb 8.40 g/dL (11.27-16.99) L 07/14/24 04:17 Hct 27.2 % (37-53) L 07/14/24 04:17 MCV 88.0 fl (82-101) 07/14/24 04:17 MCH 27.2 pg (27-33) 07/14/24 04:17 MCHC 30.9 g/dL (30-55) 07/14/24 04:17 RDW 13.2 % (12.1-15.1) 07/14/24 04:17 Plt Count 146 10^3/cmm (157-399) L 07/14/24 04:17 MPV 10.5 fL (7.4-10.4) H 07/14/24 04:17 Neut % (Auto) 67.2 % 07/14/24 04:17 Lymph % (Auto) 17.3 % 07/14/24 04:17 Evangeline % (Auto) 11.2 % 07/14/24 04:17 Eos % (Auto) 3.0 % 07/14/24 04:17 Baso % (Auto) 0.8 % 07/14/24 04:17 Neut # (Auto) 4.21 10^3/uL (1.8-7.7) 07/14/24 04:17 Lymph # (Auto) 1.1 10^3/uL (0.8-4.8) 07/14/24 04:17 Evangeline # (Auto) 0.7 10^3/uL (0.2-0.9) 07/14/24 04:17 Eos # (Auto) 0.2 10^3/uL (0.0-0.8) 07/14/24 04:17 Baso # (Auto) 0.1 10^3/uL (0.0-0.1) 07/14/24 04:17 Nucleated RBC % (auto) 0 % 07/14/24 04:17 Nucleated RBCs # 0.0 /100WBC 07/14/24 04:17 Sodium 139 mmol/L (136-145) 07/14/24 04:17 Potassium 3.8 mmol/L (3.5-5.1) 07/14/24 04:17 Chloride 103 mmol/L (98-107) 07/14/24 04:17 Carbon Dioxide 26 mmol/L (22-29) 07/14/24 04:17 Anion Gap 13.8 (5-19) 07/14/24 04:17 BUN 33 mg/dL (6-20) H 07/14/24 04:17 Creatinine 5.8 mg/dL (0.7-1.2) H* 07/14/24 04:17 GFR Calculation 10.2 mL/min (90-130) L 07/14/24 04:17 Glucose 142 mg/dL (65-115) H 07/14/24 04:17 POC Glucose 118 mg/dL (70-110) H 07/14/24 07:40 Calculated Osmolality 298 mOsm/kg (285-295) H 07/14/24 04:17 Calcium 7.4 mg/dL (8.5-10.5) L 07/14/24 04:17 Phosphorus 4.5 mg/dL (2.5-4.5) 07/13/24 04:07 Magnesium 2.0 mg/dL (1.7-2.3) 07/13/24 04:07 Iron 16 ug/dL (59-158) L 07/10/24 03:18 TIBC 173 mcg/dl 07/10/24 03:18 % Saturation 9.2 % (20-50) L 07/10/24 03:18 Unsat Iron Binding 157 ug/dL (112-347) 07/10/24 03:18 Ferritin 243 ng/mL (30-400) 07/10/24 03:18 Total Bilirubin 0.2 mg/dL (0.15-1.2) 07/13/24 04:07 AST 12 U/L (0-40) 07/13/24 04:07 ALT < 5 U/L (0-41) 07/13/24 04:07 Alkaline Phosphatase 51 U/L (40-130) 07/13/24 04:07 Creatine Kinase 174 U/L (39-308) 07/04/24 10:17 Troponin T Baseline 118 ng/L (0-15) H* 07/08/24 19:00 Troponin T 120 Minute 117.2 ng/L (0-15) H 07/08/24 20:36 Delta Troponin T -0.8 ABS# (0-10) L 07/08/24 20:36 Troponin T Hi Sens 6Hr 123.9 ng/L (0-15) H 07/09/24 00:36 Troponin T Hi Sens 6Hr Delta 5.9 ng/L (0-12) 07/09/24 00:36 Total Protein 5.1 g/dL (6.6-8.7) L 07/13/24 04:07 Albumin 3.0 g/dL (3.5-5.2) L 07/13/24 04:07 Globulin 2.1 g/dL (1.3-4.6) 07/13/24 04:07 25-OH Vitamin D Total 10 ng/mL (30-100) L 07/10/24 03:18 PTH Intact 316.1 pg/mL (15-65) H 07/10/24 03:18 Calcium (PTH Intact) 7.5 mg/dL (8.5-10.5) L 07/10/24 03:18 Urine Color Yellow (Yellow) 07/05/24 00:10 Urine Appearance Clear (CLEAR) 07/05/24 00:10 Urine pH 6.5 (5-7) 07/05/24 00:10 Ur Specific [place] 1.011 (1.005-1.030) 07/05/24 00:10 Urine Protein 3+ (Negative) A 07/05/24 00:10 Urine Glucose (UA) 2+ (Normal) H 07/05/24 00:10 Urine Ketones Negative (Negative) 07/05/24 00:10 Urine Blood Trace (Negative) A 07/05/24 00:10 Urine Nitrate Negative (Negative) 07/05/24 00:10 Urine Bilirubin Negative (Negative) 07/05/24 00:10 Urine Urobilinogen 0.2 mg/dL (Negative) 07/05/24 00:10 Ur Leukocyte Esterase Negative (Negative) 07/05/24 00:10 Urine RBC 0-2 /hpf (0-2) 07/05/24 00:10 Urine WBC 0-5 /hpf (0-5) 07/05/24 00:10 Ur Squamous Epith Cells 0-5 /hpf (0-5) 07/05/24 00:10 Amorphous Sediment Not Reportable 07/05/24 00:10 Urine Bacteria None seen /hpf (NONE) 07/05/24 00:10 Hyaline Casts 0-4 /lpf H 07/05/24 00:10 U Random Total Protein 386 mg/dL 07/05/24 00:10 Ur Random Sodium 41 mmol/L 07/04/24 15:50 Urine Creatinine 42 mg/dL (39-259) 07/05/24 00:10 Serum Ketones Negative (Negative) 07/04/24 10:17 JULIANNE IFA Animal Tis Res Negative (NEGATIVE) 07/04/24 19:45 JIA-1 Antibody <1.0 neg AI (<1.0 NEG) 07/04/24 19:45 SS-A Antibody <1.0 neg AI (<1.0 NEG) 07/04/24 19:45 SS-B Antibody <1.0 neg AI (<1.0 NEG) 07/04/24 19:45 Sm ([place]) Antibody <1.0 neg AI (<1.0 NEG) 07/04/24 19:45 FOOD AND BEVERAGE CASHIER Antibody <1.0 neg AI (<1.0 NEG) 07/04/24 19:45 Scl-70 Antibody <1.0 neg AI (<1.0 NEG) 07/04/24 19:45 Anti-ds DNA IgG ([place]) Negative (NEGATIVE) 07/04/24 19:45 Centromere B Antibody <1.0 neg AI (<1.0 NEG) 07/04/24 19:45 Thyroid Peroxidase Ab 1 IU/mL (<9) 07/04/24 19:45 Complement C3 100 mg/dL (90-180) 07/04/24 18:37 Complement C3c 85 mg/dL (82-185) 07/04/24 19:45 Complement C4 31 mg/dL (10-40) 07/04/24 18:37 Complement C4c 28 mg/dL (15-53) 07/04/24 19:45 CH50 Classical Pathway 55 U/mL (31-60) 07/04/24 19:45 Hep Bs Antigen Non-reactive (Nonreactive) 07/04/24 19:45 Hep Bs Antibody < 3.5 (11.5-1000) L 07/04/24 19:45 Hepatitis C Antibody Non-reactive (Nonreactive) 07/04/24 19:45 A&P Assessment and plan (1) Abnormal cardiovascular stress test: I discussed the Myocardial perfusion imaging results and its implications with the patient in detail. His LV ejection fraction was 43% by the Perfusion scan but apparently was normal by echocardiogram. In view of the multiple the risk factors and the current symptoms, in order to further evaluate the coronary status, a cardiac catheterization would be appropriate. The risk of bleeding, hematoma, vascular injury, myocardial infarction, myocardial perforation, malignant cardiac arrhythmias ,CVA, and other concomitant complications were explained in detail. Patient understood this well and consented to proceed. (2) Diabetes mellitus: May continue on the current management. Qualifiers: Diabetes mellitus complication status: without complication Diabetes mellitus termite exterminator helper insulin use: without termite exterminator helper use Diabetes mellitus type: type 2 Qualified Code(s): E11.9 - Type 2 diabetes mellitus without complications (3) ESRD needing dialysis: Patient is on hemodialysis. Consider dialysis after the angiogram. (4) Hypertension: The blood pressures are stage II. Seems to be getting under control. Qualifiers: Hypertension type: primary hypertension Qualified Code(s): I10 - Essential (primary) hypertension (5) Hyperlipidemia: May continue on the current treatment. Qualifiers: Hyperlipidemia type: mixed hyperlipidemia Qualified Code(s): E78.2 - Mixed hyperlipidemia Plan Patient underwent a cardiac catheterization today. He was found to have total occlusion of the right coronary artery with [id number] collaterals from the LAD. The LAD was found to have around 70% mid lesion. He underwent PCI of the LAD lesion by Dr. Flores. Patient need to be on aspirin and Plavix. May continue the current measures. Hemodialysis today Attestations Medical Necessity Statement*: Deferred to the primary Coding Level of Care Code 34901 Diagnoses Abnormal cardiovascular stress test R94.39 Type 2 diabetes mellitus without complication, without long-term current use of insulin E11.9 Diabetes mellitus complication status: without complication Diabetes mellitus fpc insulin use: without termite exterminator helper use Diabetes mellitus type: type 2 ESRD needing dialysis N18.6; Z99.2 Primary hypertension I10 Hypertension type: primary hypertension Mixed hyperlipidemia E78.2 Hyperlipidemia type: mixed hyperlipidemia
[2024-07-14 20:23] LABS: Glucose Point of Care 283 mg/dL (70-110)
[2024-07-14] MEDS: trazodone 100 mg Tablet 400 MG PO (20:25)
--- NOTE | 2024-07-14 22:16 | PC.NURSE ---
Patient TR band removed @ 21:15. No hematoma at site. Dressing dry and intact.
[2024-07-15] VITALS (13 sets, daily range): BP systolic 155–205; BP diastolic 84–104; PULSE 60–84; RESP 13–24; TEMP 36.2–37.2; O2SAT 94–99; BMI 30.3
[2024-07-15 04:44] LABS: Basophils # 0.1 10^3/uL (0.0-0.1); Basophils % 1.2 %; Eosinophils # 0.2 10^3/uL (0.0-0.8); Eosinophils % 3.6 %; Hematocrit 26.7 % (37-53); Lymphocytes # 0.9 10^3/uL (0.8-4.8); Lymphocytes % 18.6 %; Mean Corpuscular HGB Conc 32.2 g/dL (30-55); Mean Corpuscular Hemoglobin 27.6 pg (27-33); Mean Corpuscular Volume 85.6 fl (82-101); Mean Platelet Volume 10.8 fL (7.4-10.4); Monocytes # 0.5 10^3/uL (0.2-0.9); Neutrophils # 3.31 10^3/uL (1.8-7.7); Neutrophils % 66.2 %; Nucleated Red Blood Cells % 0 %; Platelet Count 163 10^3/cmm (157-399); Red Blood Count 3.12 10^6/uL (3.85-5.65); Red Cell Distribution Width 13.2 % (12.1-15.1)
[2024-07-15 04:58] LABS: Anion Gap 12.8 (5-19); Blood Urea Nitrogen 21 mg/dL (6-20); Calcium 7.5 mg/dL (8.5-10.5); Carbon Dioxide 27 mmol/L (22-29); Chloride 103 mmol/L (98-107); Glomerular Filtration Rate 14.1 mL/min (90-130); Glucose 120 mg/dL (65-115); Osmolality Calculated 292 mOsm/kg (285-295); Potassium 3.8 mmol/L (3.5-5.1); Sodium 139 mmol/L (136-145)
[2024-07-15] MEDS: famotidine 20 mg/2 mL INJ IVP ×2 (05:51→17:24)
[2024-07-15 06:51] LABS: Glucose Point of Care 116 mg/dL (70-110)
[2024-07-15] MEDS: aspirin 81 mg EC Tablet PO (08:51)
[2024-07-15] MEDS: carvedilol 12.5 mg Tablet 25 MG PO ×2 (08:51→17:24)
[2024-07-15] MEDS: sertraline 100 mg Tablet 200 MG PO (08:51)
[2024-07-15] MEDS: atorvastatin 40 mg Tablet PO (08:51)
[2024-07-15] MEDS: tamsulosin 0.4 mg Capsule PO (08:51)
[2024-07-15] MEDS: clopidogrel 75 mg Tablet PO (08:51)
[2024-07-15] MEDS: duloxetine 60 mg Capsule 120 MG PO (08:52)
[2024-07-15] MEDS: losartan 50 mg Tablet PO (09:02)
[2024-07-15] MEDS: hyDRALAzine 20 mg/mL INJ 1 mL 10 MG IVP ×2 (09:45→10:42)
[2024-07-15] MEDS: ALPRAZolam 0.5 mg Tablet PO ×2 (09:53→20:16)
--- NOTE | 2024-07-15 10:05 | P.PN_ITS ---
Subjective 2 Subjective: Patient is doing okay with no recurrence of chest pain. He is ambulating on telemetry with no specific complaints. The blood pressure has been running in the 180s. No shortness of breath. He had the hemodialysis yesterday after the cardiac catheterization. Did well. Had PCI of the LAD. Right coronary artery was found to be totally occluded, chronic Medications: Medication Review Details: Current Medications Acetaminophen (Acetaminophen 325 Mg Tablet) 650 mg PO Q4H PRN PRN Reason: MILD PAIN OR INCREASE TEMP Last Admin: 07/10/24 03:11 Dose: 650 mg Al Hydrox/Mg Hydrox/Simethicone (Ywst-Hjd-Xywhkqxhn-Domingo 30 Ml Udc) 30 ml PO Q15M PRN PRN Reason: INDIGESTION Albuterol Sulfate (Albuterol 2.5 Mg/3 Ml Neb) 2.5 mg INHALATION ONCE PRN PRN Reason: WHEEZING Alprazolam (Alprazolam 0.5 Mg Tablet) 0.5 mg PO TID PRN PRN Reason: ANXIETY Last Admin: 07/15/24 09:53 Dose: 0.5 mg Aspirin (Aspirin 81 Mg Ec Tablet) 81 mg PO DAILY [facility] Last Admin: 07/15/24 08:51 Dose: 81 mg Atorvastatin Calcium (Atorvastatin 40 Mg Tablet) 40 mg PO DAILY [facility] Last Admin: 07/15/24 08:51 Dose: 40 mg Atropine Sulfate (Atropine 1 Mg/Ml Sdv 1 Ml) 0.5 mg IVP PRN PRN PRN Reason: Symptomatic bradycardia Carvedilol (Carvedilol 12.5 Mg Tablet) 25 mg PO BID [facility] Last Admin: 07/15/24 08:51 Dose: 25 mg Clopidogrel Bisulfate (Clopidogrel 75 Mg Tablet) 75 mg PO DAILY [facility] Last Admin: 07/15/24 08:51 Dose: 75 mg Duloxetine HCl (Duloxetine 60 Mg Capsule) 120 mg PO DAILY [facility] Last Admin: 07/15/24 08:52 Dose: 120 mg Famotidine (Famotidine 20 Mg/2 Ml Inj) 20 mg IVP Q12H [facility] Last Admin: 07/15/24 05:51 Dose: 20 mg Famotidine (Famotidine 20 Mg/2 Ml Inj) 20 mg IVP ONCE PRN PRN Reason: HEARTBURN Fentanyl (Fentanyl 50 Mcg/Ml Inj 2ml) 50 mcg IVP PRN PRN PRN Reason: Prior to sheath removal Glucagon (Glucagon 1 Mg/Ml Kit 1 Ml) 1 mg IM ONCE PRN; Protocol PRN Reason: Adult Acute Hypoglycemia Nursing Prot. Hydralazine HCl (Hydralazine 20 Mg/Ml Inj 1 Ml) 10 mg IVP Q6H PRN PRN Reason: HYPERTENSION Last Admin: 07/15/24 09:45 Dose: 10 mg Dextrose (D5w) 500 mls @ 0 mls/hr IV ONCE PRN; Protocol PRN Reason: Adult Acute Hypoglycemia Prot Dextrose (D10w) 125 mls @ 750 mls/hr IV PRN PRN; Protocol PRN Reason: Adult Acute Hypoglycemia Nursing Protocol Dextrose (D10w) 250 mls @ 1,000 mls/hr IV PRN PRN; Protocol PRN Reason: Adult Acute Hypoglycemia Nursing Protocol Sodium Chloride (Sodium Chloride 0.9%) 1,000 mls @ 0 mls/hr IV .Q0M PRN PRN Reason: hypotension or symptomatic Albumin Human (Albumin) 12.5 gm in 50 mls @ 60 mls/hr IV PRN PRN PRN Reason: Hypotension and/or symptomatic Sodium Chloride (Sodium Chloride 0.9%) 1,000 mls @ 0 mls/hr IV .Q0M PRN PRN Reason: hypotension or symptomatic Albumin Human (Albumin) 12.5 gm in 50 mls @ 60 mls/hr IV PRN PRN PRN Reason: Hypotension and/or symptomatic Insulin Glargine (Insulin Glargine 100 Units/1 Ml) 40 unit SUBCUT DAILY [facility] Insulin Glargine (Insulin Glargine 100 Units/1 Ml) 40 unit SUBCUT BEDTIME [facility] Last Admin: 07/12/24 20:45 Dose: 40 unit Ipratropium [place] (Ipratropium 0.5 Mg/2.5 Ml Neb) 0.5 mg INHALATION ONCE PRN PRN Reason: WHEEZING Losartan Potassium (Losartan 50 Mg Tablet) 50 mg PO DAILY [facility] Last Admin: 07/15/24 09:02 Dose: 50 mg Magnesium Hydroxide (Magnesium Hydroxide 30 Ml Udc) 30 ml PO DAILY PRN PRN Reason: CONSTIPATION Metoclopramide HCl (Metoclopramide 5 Mg/Ml Sdv 2 Ml) 10 mg IVP ONCE PRN PRN Reason: N/V if zofran ineffective Naloxone HCl (Naloxone 0.4 Mg/Ml Sdv) 0.1 mg IVP Q2M PRN PRN Reason: RESPIRATORY RATE < 8/MIN Nitroglycerin (Nitroglycerin 0.4 Mg Sublingual Tablet) 0.4 mg SUBLINGUAL Q5M PRN PRN Reason: CHEST PAIN Ondansetron HCl (Ondansetron 2 Mg/Ml Sdv 2 Ml) 4 mg IVP Q5M PRN PRN Reason: NAUSEA AND VOMITING Last Admin: 07/13/24 19:57 Dose: 4 mg Ondansetron HCl (Ondansetron 2 Mg/Ml Sdv 2 Ml) 4 mg IVP Q2M PRN PRN Reason: NAUSEA Scopolamine (Scopolamine 1.5 Patch) 1 patch TRANSDERMA ONCE PRN PRN Reason: Nausea/ Vomiting Prophylaxis Sertraline HCl (Sertraline 100 Mg Tablet) 200 mg PO DAILY [facility] Last Admin: 07/15/24 08:51 Dose: 200 mg Tamsulosin HCl (Tamsulosin 0.4 Mg Capsule) 0.4 mg PO DAILY [facility] Last Admin: 07/15/24 08:51 Dose: 0.4 mg Terazosin HCl (Terazosin 1 Mg Capsule) 1 mg PO DAILY [facility] Last Admin: 07/15/24 08:51 Dose: 1 mg Trazodone HCl (Trazodone 100 Mg Tablet) 400 mg PO BEDTIME PRN PRN Reason: insomnia Last Admin: 07/14/24 20:25 Dose: 400 mg Vitals/I&O/Wt Last Vital Signs Temp 98.9 F 07/15/24 07:59 Pulse 60 07/15/24 07:59 Resp 13 07/15/24 07:59 BP 205/104 07/15/24 09:02 Pulse Ox 94 07/15/24 07:59 O2 Del Method BiPAP 07/15/24 07:59 O2 Flow Rate 2 07/09/24 07:31 FiO2 21 07/15/24 03:15 07/14/24 07/15/24 07/15/24 22:59 06:59 14:59 Intake Total 240 / 240 120 / 120 Output Total 700 / 700 450 / 450 Balance -460 / -460 -330 / -330 Weight last 48 hrs Weight 276 lb 7.355 oz Weight 280 lb 10.375 oz Physical Exam 2 Narrative: GENERAL: The patient is alert and oriented times three. Not in any acute distress. HEENT: No significant pallor, icterus or lymphadenopathy.Oral cavity: There are no mucous membrane lesions. NECK: Trachea appears to be central. No masses noted. No JVD or thyromegaly appreciated. RESPIRATORY: Chest is symmetrical. No intercostals muscle retraction or any accessory muscle activation. There is no chest wall tenderness. Breath sounds are heard bilaterally. No rales or rhonchi heard. No evidence of any consolidation. Dialysis catheter in the right subclavian vein BREASTS: Deferred. HEART: The heart sounds are normal. No S3 or S4. No significant murmurs. No pericardial rub ABDOMEN: No vessel pulsations or distention. No tenderness. No organomegaly appreciated. Bowel sounds are normally heard. : Deferred. RECTAL: Deferred. LYMPHATIC: No lymphadenopathy noted in the neck. EXTREMITIES: The radial arterial puncture site has no hematoma bleeding. MUSCULOSKELETAL: No acute joint deformities or swelling SKIN: There are no significant rashes or ecchymosis NEUROPSYCHIATRIC: The patient is alert and oriented x3. Appears to be in a good mood. No tremors or rigidity noted. Data 07/15/24 04:08 07/15/24 04:08 Other Labs: Laboratory Last Values WBC 5.00 10^3/uL (3.29-11.43) 07/15/24 04:08 RBC 3.12 10^6/uL (3.85-5.65) L 07/15/24 04:08 Hgb 8.60 g/dL (11.27-16.99) L 07/15/24 04:08 Hct 26.7 % (37-53) L 07/15/24 04:08 MCV 85.6 fl (82-101) 07/15/24 04:08 MCH 27.6 pg (27-33) 07/15/24 04:08 MCHC 32.2 g/dL (30-55) 07/15/24 04:08 RDW 13.2 % (12.1-15.1) 07/15/24 04:08 Plt Count 163 10^3/cmm (157-399) 07/15/24 04:08 MPV 10.8 fL (7.4-10.4) H 07/15/24 04:08 Neut % (Auto) 66.2 % 07/15/24 04:08 Lymph % (Auto) 18.6 % 07/15/24 04:08 [place] % (Auto) 10.0 % 07/15/24 04:08 Eos % (Auto) 3.6 % 07/15/24 04:08 Baso % (Auto) 1.2 % 07/15/24 04:08 Neut # (Auto) 3.31 10^3/uL (1.8-7.7) 07/15/24 04:08 Lymph # (Auto) 0.9 10^3/uL (0.8-4.8) 07/15/24 04:08 Stewart # (Auto) 0.5 10^3/uL (0.2-0.9) 07/15/24 04:08 Eos # (Auto) 0.2 10^3/uL (0.0-0.8) 07/15/24 04:08 Baso # (Auto) 0.1 10^3/uL (0.0-0.1) 07/15/24 04:08 Nucleated RBC % (auto) 0 % 07/15/24 04:08 Nucleated RBCs # 0.0 /100WBC 07/15/24 04:08 Sodium 139 mmol/L (136-145) 07/15/24 04:08 Potassium 3.8 mmol/L (3.5-5.1) 07/15/24 04:08 Chloride 103 mmol/L (98-107) 07/15/24 04:08 Carbon Dioxide 27 mmol/L (22-29) 07/15/24 04:08 Anion Gap 12.8 (5-19) 07/15/24 04:08 BUN 21 mg/dL (6-20) H 07/15/24 04:08 Creatinine 4.4 mg/dL (0.7-1.2) H 07/15/24 04:08 GFR Calculation 14.1 mL/min (90-130) L 07/15/24 04:08 Glucose 120 mg/dL (65-115) H 07/15/24 04:08 POC Glucose 116 mg/dL (70-110) H 07/15/24 06:25 Calculated Osmolality 292 mOsm/kg (285-295) 07/15/24 04:08 Calcium 7.5 mg/dL (8.5-10.5) L 07/15/24 04:08 Phosphorus 4.5 mg/dL (2.5-4.5) 07/13/24 04:07 Magnesium 2.0 mg/dL (1.7-2.3) 07/13/24 04:07 Iron 16 ug/dL (59-158) L 07/10/24 03:18 TIBC 173 mcg/dl 07/10/24 03:18 % Saturation 9.2 % (20-50) L 07/10/24 03:18 Unsat Iron Binding 157 ug/dL (112-347) 07/10/24 03:18 Ferritin 243 ng/mL (30-400) 07/10/24 03:18 Total Bilirubin 0.2 mg/dL (0.15-1.2) 07/13/24 04:07 AST 12 U/L (0-40) 07/13/24 04:07 ALT < 5 U/L (0-41) 07/13/24 04:07 Alkaline Phosphatase 51 U/L (40-130) 07/13/24 04:07 Creatine Kinase 174 U/L (39-308) 07/04/24 10:17 Troponin T Baseline 118 ng/L (0-15) H* 07/08/24 19:00 Troponin T 120 Minute 117.2 ng/L (0-15) H 07/08/24 20:36 Delta Troponin T -0.8 ABS# (0-10) L 07/08/24 20:36 Troponin T Hi Sens 6Hr 123.9 ng/L (0-15) H 07/09/24 00:36 Troponin T Hi Sens 6Hr Delta 5.9 ng/L (0-12) 07/09/24 00:36 Total Protein 5.1 g/dL (6.6-8.7) L 07/13/24 04:07 Albumin 3.0 g/dL (3.5-5.2) L 07/13/24 04:07 Globulin 2.1 g/dL (1.3-4.6) 07/13/24 04:07 25-OH Vitamin D Total 10 ng/mL (30-100) L 07/10/24 03:18 PTH Intact 316.1 pg/mL (15-65) H 07/10/24 03:18 Calcium (PTH Intact) 7.5 mg/dL (8.5-10.5) L 07/10/24 03:18 Urine Color Yellow (Yellow) 07/05/24 00:10 Urine Appearance Clear (CLEAR) 07/05/24 00:10 Urine pH 6.5 (5-7) 07/05/24 00:10 Ur Specific [place] 1.011 (1.005-1.030) 07/05/24 00:10 Urine Protein 3+ (Negative) A 07/05/24 00:10 Urine Glucose (UA) 2+ (Normal) H 07/05/24 00:10 Urine Ketones Negative (Negative) 07/05/24 00:10 Urine Blood Trace (Negative) A 07/05/24 00:10 Urine Nitrate Negative (Negative) 07/05/24 00:10 Urine Bilirubin Negative (Negative) 07/05/24 00:10 Urine Urobilinogen 0.2 mg/dL (Negative) 07/05/24 00:10 Ur Leukocyte Esterase Negative (Negative) 07/05/24 00:10 Urine RBC 0-2 /hpf (0-2) 07/05/24 00:10 Urine WBC 0-5 /hpf (0-5) 07/05/24 00:10 Ur Squamous Epith Cells 0-5 /hpf (0-5) 07/05/24 00:10 Amorphous Sediment Not Reportable 07/05/24 00:10 Urine Bacteria None seen /hpf (NONE) 07/05/24 00:10 Hyaline Casts 0-4 /lpf H 07/05/24 00:10 U Random Total Protein 386 mg/dL 07/05/24 00:10 Ur Random Sodium 41 mmol/L 07/04/24 15:50 Urine Creatinine 42 mg/dL (39-259) 07/05/24 00:10 Serum Ketones Negative (Negative) 07/04/24 10:17 JULIANNE IFA Animal Tis Res Negative (NEGATIVE) 07/04/24 19:45 JIA-1 Antibody <1.0 neg AI (<1.0 NEG) 07/04/24 19:45 SS-A Antibody <1.0 neg AI (<1.0 NEG) 07/04/24 19:45 SS-B Antibody <1.0 neg AI (<1.0 NEG) 07/04/24 19:45 Sm ([place]) Antibody <1.0 neg AI (<1.0 NEG) 07/04/24 19:45 BELLOWS TESTER Antibody <1.0 neg AI (<1.0 NEG) 07/04/24 19:45 Scl-70 Antibody <1.0 neg AI (<1.0 NEG) 07/04/24 19:45 Anti-ds DNA IgG ([place]) Negative (NEGATIVE) 07/04/24 19:45 Centromere B Antibody <1.0 neg AI (<1.0 NEG) 07/04/24 19:45 Thyroid Peroxidase Ab 1 IU/mL (<9) 07/04/24 19:45 Complement C3 100 mg/dL (90-180) 07/04/24 18:37 Complement C3c 85 mg/dL (82-185) 07/04/24 19:45 Complement C4 31 mg/dL (10-40) 07/04/24 18:37 Complement C4c 28 mg/dL (15-53) 07/04/24 19:45 CH50 Classical Pathway 55 U/mL (31-60) 07/04/24 19:45 Hep Bs Antigen Non-reactive (Nonreactive) 07/04/24 19:45 Hep Bs Antibody < 3.5 (11.5-1000) L 07/04/24 19:45 Hepatitis C Antibody Non-reactive (Nonreactive) 07/04/24 19:45 A&P Assessment and plan (1) Atherosclerotic heart disease [place] coronary artery w/angina pectoris: Patient status post cardiac catheterization revealing total occlusion of the RCA of the proximal segment. High-grade lesion in the mid LAD. Status post PCI of the LAD lesion. Currently remaining stable. Mild disease in the other vessels. Qualifiers: [place] vs. transplanted heart: [place] heart Qualified Code(s): I25.119 - Atherosclerotic heart disease of [place] coronary artery with unspecified angina pectoris (2) Diabetes mellitus: May continue on the current management. Qualifiers: Diabetes mellitus complication status: without complication Diabetes mellitus jail insulin use: without jail use Diabetes mellitus type: t ype 2 Qualified Code(s): E11.9 - Type 2 diabetes mellitus without complications (3) ESRD needing dialysis: Patient is on hemodialysis. Continue on the current follow-up schedule. (4) Hypertension: Blood pressure seems to be under control. I may increase the dose of the hydralazine to 50 mg p.o. every 8 hours. Continue other medications as it is. Qualifiers: Hypertension type: primary hypertension Qualified Code(s): I10 - Essential (primary) hypertension (5) Hyperlipidemia: May continue on the current treatment. Qualifiers: Hyperlipidemia type: mixed hyperlipidemia Qualified Code(s): E78.2 - Mixed hyperlipidemia Plan Disposition as per the primary. Need to be seen in the heart clinic in a week, by the nurse practitioner. Importance of diet, exercise and medication were discussed with the patient which he understands well. Appoint with me in the office in 1 month Attestations 2 Medical Necessity Statement*: Deferred to the primary Coding Level of Care Code 33327 Diagnoses Atherosclerosis of [place] coronary artery of [place] heart with angina pectoris I25.119 [place] vs. transplanted heart: [place] heart Type 2 diabetes mellitus without complication, without long-term current use of insulin E11.9 Diabetes mellitus complication status: without complication Diabetes mellitus jail insulin use: without vermin exterminator use Diabetes mellitus type: type 2 ESRD needing dialysis N18.6; Z99.2 Primary hypertension I10 Hypertension type: primary hypertension Mixed hyperlipidemia E78.2 Hyperlipidemia type: mixed hyperlipidemia
--- NOTE | 2024-07-15 10:13 | P.PN_ITS ---
Subjective 2 Subjective: No overnight event feeling much better. Blood pressure though was elevated he has not had morning meds. Medications: Reviewed: Yes Medication Review Details: Current Medications Acetaminophen (Acetaminophen 325 Mg Tablet) 650 mg PO Q4H PRN PRN Reason: MILD PAIN OR INCREASE TEMP Last Admin: 07/10/24 03:11 Dose: 650 mg Al Hydrox/Mg Hydrox/Simethicone (Zzgm-Ttv-Orldhdfoh-Domingo 30 Ml Udc) 30 ml PO Q15M PRN PRN Reason: INDIGESTION Albuterol Sulfate (Albuterol 2.5 Mg/3 Ml Neb) 2.5 mg INHALATION ONCE PRN PRN Reason: WHEEZING Alprazolam (Alprazolam 0.5 Mg Tablet) 0.5 mg PO TID PRN PRN Reason: ANXIETY Last Admin: 07/15/24 09:53 Dose: 0.5 mg Aspirin (Aspirin 81 Mg Ec Tablet) 81 mg PO DAILY [facility] Last Admin: 07/15/24 08:51 Dose: 81 mg Atorvastatin Calcium (Atorvastatin 40 Mg Tablet) 40 mg PO DAILY [facility] Last Admin: 07/15/24 08:51 Dose: 40 mg Atropine Sulfate (Atropine 1 Mg/Ml Sdv 1 Ml) 0.5 mg IVP PRN PRN PRN Reason: Symptomatic bradycardia Carvedilol (Carvedilol 12.5 Mg Tablet) 25 mg PO BID [facility] Last Admin: 07/15/24 08:51 Dose: 25 mg Clopidogrel Bisulfate (Clopidogrel 75 Mg Tablet) 75 mg PO DAILY [facility] Last Admin: 07/15/24 08:51 Dose: 75 mg Duloxetine HCl (Duloxetine 60 Mg Capsule) 120 mg PO DAILY [facility] Last Admin: 07/15/24 08:52 Dose: 120 mg Famotidine (Famotidine 20 Mg/2 Ml Inj) 20 mg IVP Q12H [facility] Last Admin: 07/15/24 05:51 Dose: 20 mg Famotidine (Famotidine 20 Mg/2 Ml Inj) 20 mg IVP ONCE PRN PRN Reason: HEARTBURN Fentanyl (Fentanyl 50 Mcg/Ml Inj 2ml) 50 mcg IVP PRN PRN PRN Reason: Prior to sheath removal Glucagon (Glucagon 1 Mg/Ml Kit 1 Ml) 1 mg IM ONCE PRN; Protocol PRN Reason: Adult Acute Hypoglycemia Nursing Prot. Hydralazine HCl (Hydralazine 20 Mg/Ml Inj 1 Ml) 10 mg IVP Q6H PRN PRN Reason: HYPERTENSION Last Admin: 07/15/24 09:45 Dose: 10 mg Dextrose (D5w) 500 mls @ 0 mls/hr IV ONCE PRN; Protocol PRN Reason: Adult Acute Hypoglycemia Prot Dextrose (D10w) 125 mls @ 750 mls/hr IV PRN PRN; Protocol PRN Reason: Adult Acute Hypoglycemia Nursing Protocol Dextrose (D10w) 250 mls @ 1,000 mls/hr IV PRN PRN; Protocol PRN Reason: Adult Acute Hypoglycemia Nursing Protocol Sodium Chloride (Sodium Chloride 0.9%) 1,000 mls @ 0 mls/hr IV .Q0M PRN PRN Reason: hypotension or symptomatic Albumin Human (Albumin) 12.5 gm in 50 mls @ 60 mls/hr IV PRN PRN PRN Reason: Hypotension and/or symptomatic Sodium Chloride (Sodium Chloride 0.9%) 1,000 mls @ 0 mls/hr IV .Q0M PRN PRN Reason: hypotension or symptomatic Albumin Human (Albumin) 12.5 gm in 50 mls @ 60 mls/hr IV PRN PRN PRN Reason: Hypotension and/or symptomatic Insulin Glargine (Insulin Glargine 100 Units/1 Ml) 40 unit SUBCUT DAILY [facility] Insulin Glargine (Insulin Glargine 100 Units/1 Ml) 40 unit SUBCUT BEDTIME [facility] Last Admin: 07/12/24 20:45 Dose: 40 unit Ipratropium [place] (Ipratropium 0.5 Mg/2.5 Ml Neb) 0.5 mg INHALATION ONCE PRN PRN Reason: WHEEZING Losartan Potassium (Losartan 50 Mg Tablet) 50 mg PO DAILY [facility] Last Admin: 07/15/24 09:02 Dose: 50 mg Magnesium Hydroxide (Magnesium Hydroxide 30 Ml Udc) 30 ml PO DAILY PRN PRN Reason: CONSTIPATION Metoclopramide HCl (Metoclopramide 5 Mg/Ml Sdv 2 Ml) 10 mg IVP ONCE PRN PRN Reason: N/V if zofran ineffective Naloxone HCl (Naloxone 0.4 Mg/Ml Sdv) 0.1 mg IVP Q2M PRN PRN Reason: RESPIRATORY RATE < 8/MIN Nitroglycerin (Nitroglycerin 0.4 Mg Sublingual Tablet) 0.4 mg SUBLINGUAL Q5M PRN PRN Reason: CHEST PAIN Ondansetron HCl (Ondansetron 2 Mg/Ml Sdv 2 Ml) 4 mg IVP Q5M PRN PRN Reason: NAUSEA AND VOMITING Last Admin: 07/13/24 19:57 Dose: 4 mg Ondansetron HCl (Ondansetron 2 Mg/Ml Sdv 2 Ml) 4 mg IVP Q2M PRN PRN Reason: NAUSEA Scopolamine (Scopolamine 1.5 Patch) 1 patch TRANSDERMA ONCE PRN PRN Reason: Nausea/ Vomiting Prophylaxis Sertraline HCl (Sertraline 100 Mg Tablet) 200 mg PO DAILY [facility] Last Admin: 07/15/24 08:51 Dose: 200 mg Tamsulosin HCl (Tamsulosin 0.4 Mg Capsule) 0.4 mg PO DAILY [facility] Last Admin: 07/15/24 08:51 Dose: 0.4 mg Terazosin HCl (Terazosin 1 Mg Capsule) 1 mg PO DAILY [facility] Last Admin: 07/15/24 08:51 Dose: 1 mg Trazodone HCl (Trazodone 100 Mg Tablet) 400 mg PO BEDTIME PRN PRN Reason: insomnia Last Admin: 07/14/24 20:25 Dose: 400 mg Vitals/I&O/Wt Last Vital Signs Temp 98.9 F 07/15/24 07:59 Pulse 60 07/15/24 07:59 Resp 13 07/15/24 07:59 BP 205/104 07/15/24 09:02 Pulse Ox 94 07/15/24 07:59 O2 Del Method BiPAP 07/15/24 07:59 O2 Flow Rate 2 07/09/24 07:31 FiO2 21 07/15/24 03:15 07/14/24 07/15/24 07/15/24 22:59 06:59 14:59 Intake Total 240 / 240 120 / 120 Output Total 700 / 700 450 / 450 Balance -460 / -460 -330 / -330 Weight last 48 hrs Weight 276 lb 7.355 oz Weight 280 lb 10.375 oz Physical Exam 2 Const: OTHER: GENERAL: Patient is alert, awake and oriented x3. HEART: Regular S1 and S2. No murmur, rub or gallop. LUNGS: Clear to auscultate bilaterally. CENTRAL NERVOUS SYSTEM: Grossly nonfocal. EXTREMITIES: Lower extremities with out edema bilaterally. Data 07/15/24 04:08 10/05/24 04:08 A&P Assessment and plan (1) Abnormal cardiovascular stress test: Status post PCI to mid LAD patient has a [id number] collaterals right coronary artery was occluded it was thought that mid LAD is a culprit it was treated with single drug-eluting stent continue aspirin statin beta-twyla and clopidogrel (2) Diabetes mellitus: Continue current regimen Qualifiers: Diabetes mellitus complication status: without complication Diabetes mellitus snf insulin use: without quality assurance tech use Diabetes mellitus type: t ype 2 Qualified Code(s): E11.9 - Type 2 diabetes mellitus without complications (3) ESRD needing dialysis: Patient is on dialysis. (4) Hypertension: Blood pressure was elevated, advised giving patient regular meds and continue to monitor, will optimize medication of blood pressure not under control over next 3 to 4 hours, can use IV hydralazine 10 mg Q4 for systolic blood pressure more than 160 Qualifiers: Hypertension type: primary hypertension Qualified Code(s): I10 - Essential (primary) hypertension (5) Hyperlipidemia: Continue statin may continue on the current treatment. Qualifiers: Hyperlipidemia type: mixed hyperlipidemia Qualified Code(s): E78.2 - Mixed hyperlipidemia Attestations 2 Medical Necessity Statement*: From a cardiovascular perspective patient can be discharged home once blood pressure is under control Coding Level of Care Code Acute Code for [facility] Fwd Diagnoses Abnormal cardiovascular stress test R94.39 Type 2 diabetes mellitus without complication, without long-term current use of insulin E11.9 Diabetes mellitus complication status: without complication Diabetes mellitus snf insulin use: without quality assurance tech use Diabetes mellitus type: type 2 ESRD needing dialysis N18.6; Z99.2 Primary hypertension I10 Hypertension type: primary hypertension Mixed hyperlipidemia E78.2 Hyperlipidemia type: mixed hyperlipidemia
[2024-07-15 11:56] LABS: Glucose Point of Care 151 mg/dL (70-110)
[2024-07-15] MEDS: NIFEdipine ER (24 hr) 30 mg Tablet PO (11:56)
[2024-07-15] MEDS: hyDRALAzine 50 mg Tablet PO ×2 (16:05→20:16)
[2024-07-15 17:22] LABS: Glucose Point of Care 212 mg/dL (70-110)
--- NOTE | 2024-07-15 18:29 | P.PN_ITS ---
Subjective 2 Subjective: No acute overnight events noted. Seen him at bedside this morning. He denies any complaint of chest pain or palpitation but blood pressure has been in high 180s. Medications: Reviewed: Yes Vitals/I&O/Wt Last Vital Signs Temp 98.9 F 07/15/24 16:00 Pulse 83 07/15/24 16:00 Resp 23 H 07/15/24 16:00 BP 167/89 07/15/24 16:00 Pulse Ox 97 07/15/24 16:00 O2 Del Method Room Air 07/15/24 16:00 O2 Flow Rate 2 07/09/24 07:31 FiO2 21 07/15/24 03:15 07/15/24 07/15/24 07/15/24 06:59 14:59 22:59 Intake Total 360 / 360 Output Total 450 / 450 Balance -90 / -90 Weight last 48 hrs Weight 125.4 kg Weight 127.3 kg Physical Exam 2 Narrative: He is alert awake oriented x 3, obese, not in acute distress but seems highly anxious. Chest clear to auscultation bilaterally, HD catheter in place, pressure dressing present but bleeding still seen. Cardiovascular normal heart sounds Abdomen NAD Extremities no edema noted bilateral lower extremity Data 07/15/24 04:08 07/15/24 04:08 A&P Assessment and plan (1) Acute kidney injury superimposed on chronic kidney disease: (2) Diabetes mellitus: Qualifiers: Diabetes mellitus complication status: without complication Diabetes mellitus half-way insulin use: without tank systems maintainer use Diabetes mellitus type: t ype 2 Qualified Code(s): E11.9 - Type 2 diabetes mellitus without complications (3) Hypertension: (4) Peripheral neuropathy: (5) Morbid obesity: (6) Generalized anxiety disorder: (7) Major depressive disorder, recurrent severe without psychotic features: (8) GERD (gastroesophageal reflux disease): Plan Abimael Cochran is a 54 year old male with past medical history of uncontrolled hypertension, hyperlipidemia, major depressive disorder, generalized anxiety disorder, chronic low back pain, type 2 diabetes mellitus was referred by primary care physician for abnormal labs and found to have creatinine of 6.9, potassium of 3.0, BUN 49. Admit to [facility] Acute on chronic kidney disease- Nephrology consulted in ED Plan for hydration with IV fluids at 125cc/hr Follow up nephrology for further recommendations. Follow-up renal ultrasound Uncontrolled hypertension-systolic blood pressure in high 190s Also has component of anxiety, hence will do Xanax 0.5 mg 3 times daily as needed Captopril, diltiazem and metoprolol on hold secondary to Tommie Continue Coreg 12.5 mg twice daily, hydralazine 50 mg 3 times daily and nifedipine ER 30 mg daily as per nephrology. Monitor for now. Continue aspirin and Lipitor Type 2 diabetes mellitus-will continue with insulin glargine 60 units twice daily Monitor fingersticks 3 times daily with meals and bedtime Major depressive disorder/RODERICK-continue [employer] Cymbalta, Zoloft, trazodone and Rexulti Chronic low back pain-continue [employer] pregabalin GI prophylaxis with IV Pepcid DVT prophylaxis with SCD N.p.o. for now for possible HD catheter later today. 07/05-creatinine still 6.7 today. Spoke with nephrology, wants to monitor for 1 more day. In view of normal renal ultrasound, normal potassium levels, patient not uremic, as per nephrology patient can have an outpatient kidney biopsy and further intervention if needed. Blood pressure better controlled on current regimen. Will continue to monitor. 07/06-creatinine trending up to 7.3 today. Spoke with nephrology plan for permacath and initiation of hemodialysis. Surgery consulted. N.p.o. for procedure for now. Will continue Coreg, hydralazine and nifedipine for blood pressure control. Patient educated and counseled about plan of care.Had low sugars overnight, hence will change lantus to daily for now. 07/07-he received hemodialysis this morning. Creatinine trending down to 6.2 today. Blood pressure improved post dialysis, 148/82 on Coreg, hydralazine and nifedipine. Will continue to monitor and follow-up nephrology for further recommendations. 07/08-was plan to discharge today after hemodialysis but was found to have systolic blood pressure in 190s all throughout the hemodialysis session. Also complained of chest pain initially. Given IV hydralazine 10 mg x 1 with no significant change. Also given p.o. hydralazine 25 mg additional dose with no significant change hence will do Procardia XL 30 mg x 1 dose now. Check EKG and follow up. 07/09-discharge plan postponed due to uncontrolled hypertension/hypertensive urgency. Blood pressure still between 1 70-1 90s, started on nitro drip yesterday afternoon, continue nitro drip for now. 3 sets of troponins elevated at 118, 117, 123 but EKG did not show ST elevation. Since he is on nitro drip, will plan chemical stress test once blood pressure controlled. No more episodes of chest pain noted. Will do anticoagulation with subcutaneous Lovenox 120 mg daily as per creatinine clearance. Continue Coreg, hydralazine and Procardia for now. 07/10-blood pressure still 172/82. Will continue nitro drip. Blood pressure medications adjusted as per nephro, on Coreg 12.5 twice daily, Procardia XL 60 mg daily and Cozaar 50 mg daily. Will increase Coreg to 25 mg twice a day and titrate down nitro drip. Once off nitro drip will plan for stress test. Continue therapeutic Lovenox. 07/11-blood pressure still elevated and on nitro drip. Will follow-up nephrology for medication adjustment. Permacath site bleeding likely secondary to anticoagulation, will discontinue Lovenox. HD session today as per nephro. Once blood pressure stabilized, we will plan for stress test. 07/12-blood pressure slightly improved to 158/79. Nitro drip discontinued at 12 noon on 07/11. Will plan for stress test in a.m. he is n.p.o. past midnight. Going for hemodialysis today 07/13-s/p stress test today. Stress test positive. Need cardiology consult for further recommendations and intervention if needed. 07/14-cardiology consult appreciated. He is n.p.o. past midnight for coronary angiogram this morning. Will follow-up cardiology for further recommendations. Will have hemodialysis post cath. Monitor for blood pressure. 07/15--He is Status post PCI to mid LAD patient has a [id number] collaterals right coronary artery was occluded it was thought that mid LAD is a culprit it was treated with single drug-eluting stent continue aspirin statin beta-twyla and clopidogrel. Blood pressure this morning was 235/118. Received 2 doses of IV hydralazine 10 mg and blood pressure trended down to systolic of 180. Need to stay 1 more day for adjustment of blood pressure, medications currently adjusted to Coreg 12.5 mg twice a day, losartan 50 mg daily, hydralazine 50 mg 3 times daily and Procardia XL 30 mg twice daily. Anticipating discharge in a.m. if blood pressure stable with systolic of 1 50-1 60. Attestations 2 Medical Necessity Statement*: Needs 1 more day of monitoring for uncontrolled blood pressure Time Spent in Patient Care: 25 minutes Coding Level of Care Code Acute Code for Chg Fwd Diagnoses Acute kidney injury superimposed on chronic kidney disease N17.9; N18.9 Type 2 diabetes mellitus without complication, without long-term current use of insulin E11.9 Diabetes mellitus complication status: without complication Diabetes mellitus half-way insulin use: without tank systems maintainer use Diabetes mellitus type: type 2 Hypertension I10 Peripheral neuropathy G62.9 Morbid obesity E66.01 Generalized anxiety disorder F41.1 Major depressive disorder, recurrent severe without psychotic features F33.2 GERD (gastroesophageal reflux disease) K21.9 Time Spent (min) 25
[2024-07-15 20:29] LABS: Glucose Point of Care 206 mg/dL (70-110)
[2024-07-15] MEDS: trazodone 100 mg Tablet 400 MG PO (20:36)
--- NOTE | 2024-07-15 22:00 | P.PN_ITS ---
Subjective 2 Subjective: no new c/p s/p HD yestwrday and s/p LHC yesterday Medications: Reviewed: Yes Vitals/I&O/Wt Last Vital Signs Temp 98.6 F 07/15/24 20:00 Pulse 82 07/15/24 20:00 Resp 22 H 07/15/24 20:00 BP 167/89 07/15/24 16:00 Pulse Ox 97 07/15/24 20:00 O2 Del Method Nasal Cannula 07/15/24 20:00 O2 Flow Rate 2 07/09/24 07:31 FiO2 21 07/15/24 03:15 07/15/24 07/15/24 07/15/24 06:59 14:59 22:59 Intake Total 360 / 360 1240 / 1600 Output Total 450 / 450 Balance -90 / -90 1240 / 1150 Weight last 48 hrs Weight 125.4 kg Weight 127.3 kg Physical Exam 2 Narrative: Obese man in bed in no apparent distress Using oxygen. HEENT normocephalic atraumatic. Neck is supple no JVP. Lungs have dull bases. Heart is regular positive systolic murmur. Abdomen is soft positive bowel sounds. Extremities bilateral edema decreased Neuro awake alert oriented x 3. Patient has a right IJ permacath. Data 07/15/24 04:08 07/15/24 04:08 A&P Assessment and plan (1) Acute kidney injury superimposed on chronic kidney disease: 54-year-old gentleman with progressive renal insufficiency working diagnosis is diabetic hypertensive nephrosclerosis. 1. ESRD - HD per MW schedule 2. htn-s/p nitro-drip -, adjusting BP meds - - added Nifedipine and hydralazine 3. NSTEMI - s/p stress test , s/p LHC -LAD stent 4. anemia- monitor hgb. will order EPO seen and examined w/ RN- telehealth-pt consents to telehealth and HD Attestations 2 Medical Necessity Statement*: per oscar Coding Level of Care Code Acute Code for Chg Fwd Diagnoses Acute kidney injury superimposed on chronic kidney disease N17.9; N18.9
[2024-07-15] MEDS: NIFEdipine ER (24 hr) 30 mg Tablet 60 MG PO (22:41)
[2024-07-16] VITALS (7 sets, daily range): BP systolic 116–178; BP diastolic 60–96; PULSE 62–75; RESP 11–18; TEMP 36.7–37.1; O2SAT 96–98
[2024-07-16] MEDS: famotidine 20 mg/2 mL INJ IVP (05:41)
[2024-07-16 06:31] LABS: Glucose Point of Care 140 mg/dL (70-110)
--- NOTE | 2024-07-16 07:22 | P.DS_ITS ---
Discharge Providers Date of Admission: 07/04/24 13:28 Date of Discharge: July 16, 2024 Attending Provider at Admission: Yaneth Demarco MD Attending Provider at Discharge: Yaneth Demarco MD Primary Care Provider: ALONDRA Caldera Diagnoses at Discharge Discharge Diagnosis (1) Acute kidney injury superimposed on chronic kidney disease: Status: Acute Reason for Visit Reason for Visit: emergency dialysis doctor sent Brief History: Abimael Cochran is a 54 year old male with past medical history of uncontrolled hypertension, hyperlipidemia, major depressive disorder, generalized anxiety disorder, chronic low back pain, type 2 diabetes mellitus was referred by primary care physician for abnormal labs. He was found to have a creatinine of 6.9. He has been following up with nephrology as outpatient, last follow-up was 6 months ago. He has scheduled appointment after 1 week with nephrology for possible kidney biopsy. He denies any complaint of fever, chest pain, palpitations, dizziness, shortness of breath, urinary or bowel complaints. He has history of brief dialysis in 2014. Nephrology consulted in ER. As per the ER physician plan for for IV fluids and hydration for now. Nephrology to plan for HD catheter and dialysis later today. He is found to have acute on chronic kidney injury. As per his labs earlier this year he had creatinine of 3.4 and now with 6.9. Hospital Course Hospital Course Admited to CSU Acute on chronic kidney disease- Nephrology consulted in ED Plan for hydration with IV fluids at 125cc/hr Follow up nephrology for further recommendations. Follow-up renal ultrasound Uncontrolled hypertension-systolic blood pressure in high 190s Also has component of anxiety, hence will do Xanax 0.5 mg 3 times daily as needed Captopril, diltiazem and metoprolol on hold secondary to Tommie Continue Coreg 12.5 mg twice daily, hydralazine 50 mg 3 times daily and nifedipine ER 30 mg daily as per nephrology. Monitor for now. Continue aspirin and Lipitor Type 2 diabetes mellitus-will continue with insulin glargine 60 units twice daily Monitor fingersticks 3 times daily with meals and bedtime Major depressive disorder/RODERICK-continue ELECTRIC NEEDLE SPECIALIST Cymbalta, Zoloft, trazodone and Rexulti Chronic low back pain-continue ELECTRIC NEEDLE SPECIALIST pregabalin GI prophylaxis with IV Pepcid DVT prophylaxis with SCD N.p.o. for now for possible HD catheter later today. 07/05-creatinine still 6.7 today. Spoke with nephrology, wants to monitor for 1 more day. In view of normal renal ultrasound, normal potassium levels, patient not uremic, as per nephrology patient can have an outpatient kidney biopsy and further intervention if needed. Blood pressure better controlled on current regimen. Will continue to monitor. 07/06-creatinine trending up to 7.3 today. Spoke with nephrology plan for permacath and initiation of hemodialysis. Surgery consulted. N.p.o. for procedure for now. Will continue Coreg, hydralazine and nifedipine for blood pressure control. Patient educated and counseled about plan of care.Had low sugars overnight, hence will change lantus to daily for now. 07/07-he received hemodialysis this morning. Creatinine trending down to 6.2 today. Blood pressure improved post dialysis, 148/82 on Coreg, hydralazine and nifedipine. Will continue to monitor and follow-up nephrology for further recommendations. 07/08-was plan to discharge today after hemodialysis but was found to have systolic blood pressure in 190s all throughout the hemodialysis session. Also complained of chest pain initially. Given IV hydralazine 10 mg x 1 with no significant change. Also given p.o. hydralazine 25 mg additional dose with no significant change hence will do Procardia XL 30 mg x 1 dose now. Check EKG and follow up. 07/09-discharge plan postponed due to uncontrolled hypertension/hypertensive urgency. Blood pressure still between 1 70-1 90s, started on nitro drip yesterday afternoon, continue nitro drip for now. 3 sets of troponins elevated at 118, 117, 123 but EKG did not show ST elevation. Since he is on nitro drip, will plan chemical stress test once blood pressure controlled. No more episodes of chest pain noted. Will do anticoagulation with subcutaneous Lovenox 120 mg daily as per creatinine clearance. Continue Coreg, hydralazine and Procardia for now. 07/10-blood pressure still 172/82. Will continue nitro drip. Blood pressure medications adjusted as per nephro, on Coreg 12.5 twice daily, Procardia XL 60 mg daily and Cozaar 50 mg daily. Will increase Coreg to 25 mg twice a day and titrate down nitro drip. Once off nitro drip will plan for stress test. Continue therapeutic Lovenox. 07/11-blood pressure still elevated and on nitro drip. Will follow-up nephrology for medication adjustment. Permacath site bleeding likely secondary to anticoagulation, will discontinue Lovenox. HD session today as per nephro. Once blood pressure stabilized, we will plan for stress test. 07/12-blood pressure slightly improved to 158/79. Nitro drip discontinued at 12 noon on 07/11. Will plan for stress test in a.m. he is n.p.o. past midnight. Going for hemodialysis today 07/13-s/p stress test today. Stress test positive. Need cardiology consult for further recommendations and intervention if needed. 07/14-cardiology consult appreciated. He is n.p.o. past midnight for coronary angiogram this morning. Will follow-up cardiology for further recommendations. Will have hemodialysis post cath. Monitor for blood pressure. 07/15--He is Status post PCI to mid LAD patient has a [id number] collaterals right coronary artery was occluded it was thought that mid LAD is a culprit it was treated with single drug-eluting stent continue aspirin statin beta-twyla and clopidogrel. Blood pressure this morning was 235/118. Received 2 doses of IV hydralazine 10 mg and blood pressure trended down to systolic of 180. Need to stay 1 more day for adjustment of blood pressure, medications currently adjusted to Coreg 12.5 mg twice a day, losartan 50 mg daily, hydralazine 50 mg 3 times daily and Procardia XL 30 mg twice daily. Anticipating discharge in a.m. if blood pressure stable with systolic of 1 50-1 60. 07/16--He is doing well and blood pressure well controlled. Will discharge him home today. Physical Exam Narrative: He is alert awake oriented x 3, obese, not in acute distress but seems highly anxious. Chest clear to auscultation bilaterally, HD catheter in place, pressure dressing present but bleeding still seen. Cardiovascular normal heart sounds Abdomen NAD Extremities no edema noted bilateral lower extremity Discharge Data Studies Completed and Pending Completed Studies During Hospitalization Category Date Time Status DIRECT RESPONSE CONSULTANT request for service Routine Exams 07/14/24 09:23 Completed CXRP [XR chest 1V portable [id number]] Stat Exams 07/06/24 13:00 Completed Cardiac Stress Test MIBI [Sestamibi Stress Test Request Exams 07/13/24 06:27 Draft ] Routine XR chest 1V portable [id number] Routine Exams 07/09/24 03:31 Completed XR chest 1V portable [id number] Stat Exams 07/04/24 10:23 Completed NM amy perf SPECT r/s* [id number] Routine Nuc Med 07/13/24 14:40 Completed CV. echo complete* [id number] Routine Ultrasound 07/09/24 19:52 Completed US renal BI* [id number] Routine Ultrasound 07/04/24 14:45 Completed Radiology Impressions Renal Ultrasound 07/04/24 14:45 IMPRESSION: 1. No hydronephrosis in either kidney. 2. Normal-appearing bladder. 3. No other acute findings. C-Arm Fluoroscopy 07/06/24 12:12 Impression: Right dialysis catheter insertion. Chest X-Ray 07/09/24 03:31 IMPRESSION: 1. No acute cardiopulmonary findings. Laboratory Results WBC 5.00 10^3/uL (3.29-11.43) 07/15/24 04:08 RBC 3.12 10^6/uL (3.85-5.65) L 07/15/24 04:08 Hgb 8.60 g/dL (11.27-16.99) L 07/15/24 04:08 Hct 26.7 % (37-53) L 07/15/24 04:08 MCV 85.6 fl (82-101) 07/15/24 04:08 MCH 27.6 pg (27-33) 07/15/24 04:08 MCHC 32.2 g/dL (30-55) 07/15/24 04:08 RDW 13.2 % (12.1-15.1) 07/15/24 04:08 Plt Count 163 10^3/cmm (157-399) 07/15/24 04:08 MPV 10.8 fL (7.4-10.4) H 07/15/24 04:08 Neut % (Auto) 66.2 % 07/15/24 04:08 Lymph % (Auto) 18.6 % 07/15/24 04:08 [place] % (Auto) 10.0 % 07/15/24 04:08 Eos % (Auto) 3.6 % 07/15/24 04:08 Baso % (Auto) 1.2 % 07/15/24 04:08 Neut # (Auto) 3.31 10^3/uL (1.8-7.7) 07/15/24 04:08 Lymph # (Auto) 0.9 10^3/uL (0.8-4.8) 07/15/24 04:08 [place] # (Auto) 0.5 10^3/uL (0.2-0.9) 07/15/24 04:08 Eos # (Auto) 0.2 10^3/uL (0.0-0.8) 07/15/24 04:08 Baso # (Auto) 0.1 10^3/uL (0.0-0.1) 07/15/24 04:08 Nucleated RBC % (auto) 0 % 07/15/24 04:08 Nucleated RBCs # 0.0 /100WBC 07/15/24 04:08 Sodium 139 mmol/L (136-145) 07/15/24 04:08 Potassium 3.8 mmol/L (3.5-5.1) 07/15/24 04:08 Chloride 103 mmol/L (98-107) 07/15/24 04:08 Carbon Dioxide 27 mmol/L (22-29) 07/15/24 04:08 Anion Gap 12.8 (5-19) 07/15/24 04:08 BUN 21 mg/dL (6-20) H 07/15/24 04:08 Creatinine 4.4 mg/dL (0.7-1.2) H 07/15/24 04:08 GFR Calculation 14.1 mL/min (90-130) L 07/15/24 04:08 Glucose 120 mg/dL (65-115) H 07/15/24 04:08 POC Glucose 140 mg/dL (70-110) H 07/16/24 06:21 Calculated Osmolality 292 mOsm/kg (285-295) 07/15/24 04:08 Calcium 7.5 mg/dL (8.5-10.5) L 07/15/24 04:08 Phosphorus 4.5 mg/dL (2.5-4.5) 07/13/24 04:07 Magnesium 2.0 mg/dL (1.7-2.3) 07/13/24 04:07 Iron 16 ug/dL (59-158) L 07/10/24 03:18 TIBC 173 mcg/dl 07/10/24 03:18 % Saturation 9.2 % (20-50) L 07/10/24 03:18 Unsat Iron Binding 157 ug/dL (112-347) 07/10/24 03:18 Ferritin 243 ng/mL (30-400) 07/10/24 03:18 Total Bilirubin 0.2 mg/dL (0.15-1.2) 07/13/24 04:07 AST 12 U/L (0-40) 07/13/24 04:07 ALT < 5 U/L (0-41) 07/13/24 04:07 Alkaline Phosphatase 51 U/L (40-130) 07/13/24 04:07 Creatine Kinase 174 U/L (39-308) 07/04/24 10:17 Troponin T Baseline 118 ng/L (0-15) H* 07/08/24 19:00 Troponin T 120 Minute 117.2 ng/L (0-15) H 07/08/24 20:36 Delta Troponin T -0.8 ABS# (0-10) L 07/08/24 20:36 Troponin T Hi Sens 6Hr 123.9 ng/L (0-15) H 07/09/24 00:36 Troponin T Hi Sens 6Hr Delta 5.9 ng/L (0-12) 07/09/24 00:36 Total Protein 5.1 g/dL (6.6-8.7) L 07/13/24 04:07 Albumin 3.0 g/dL (3.5-5.2) L 07/13/24 04:07 Globulin 2.1 g/dL (1.3-4.6) 07/13/24 04:07 25-OH Vitamin D Total 10 ng/mL (30-100) L 07/10/24 03:18 PTH Intact 316.1 pg/mL (15-65) H 07/10/24 03:18 Calcium (PTH Intact) 7.5 mg/dL (8.5-10.5) L 07/10/24 03:18 Urine Color Yellow (Yellow) 07/05/24 00:10 Urine Appearance Clear (CLEAR) 07/05/24 00:10 Urine pH 6.5 (5-7) 07/05/24 00:10 Ur Specific [place] 1.011 (1.005-1.030) 07/05/24 00:10 Urine Protein 3+ (Negative) A 07/05/24 00:10 Urine Glucose (UA) 2+ (Normal) H 07/05/24 00:10 Urine Ketones Negative (Negative) 07/05/24 00:10 Urine Blood Trace (Negative) A 07/05/24 00:10 Urine Nitrate Negative (Negative) 07/05/24 00:10 Urine Bilirubin Negative (Negative) 07/05/24 00:10 Urine Urobilinogen 0.2 mg/dL (Negative) 07/05/24 00:10 Ur Leukocyte Esterase Negative (Negative) 07/05/24 00:10 Urine RBC 0-2 /hpf (0-2) 07/05/24 00:10 Urine WBC 0-5 /hpf (0-5) 07/05/24 00:10 Ur Squamous Epith Cells 0-5 /hpf (0-5) 07/05/24 00:10 Amorphous Sediment Not Reportable 07/05/24 00:10 Urine Bacteria None seen /hpf (NONE) 07/05/24 00:10 Hyaline Casts 0-4 /lpf H 07/05/24 00:10 U Random Total Protein 386 mg/dL 07/05/24 00:10 Ur Random Sodium 41 mmol/L 07/04/24 15:50 Urine Creatinine 42 mg/dL (39-259) 07/05/24 00:10 Serum Ketones Negative (Negative) 07/04/24 10:17 JULIANNE IFA Animal Tis Res Negative (NEGATIVE) 07/04/24 19:45 JIA-1 Antibody <1.0 neg AI (<1.0 NEG) 07/04/24 19:45 SS-A Antibody <1.0 neg AI (<1.0 NEG) 07/04/24 19:45 SS-B Antibody <1.0 neg AI (<1.0 NEG) 07/04/24 19:45 Sm (Stephens) Antibody <1.0 neg AI (<1.0 NEG) 07/04/24 19:45 STRIKE OPERATIONS OFFICER Antibody <1.0 neg AI (<1.0 NEG) 07/04/24 19:45 Scl-70 Antibody <1.0 neg AI (<1.0 NEG) 07/04/24 19:45 Anti-ds DNA IgG (Crith) Negative (NEGATIVE) 07/04/24 19:45 Centromere B Antibody <1.0 neg AI (<1.0 NEG) 07/04/24 19:45 Thyroid Peroxidase Ab 1 IU/mL (<9) 07/04/24 19:45 Complement C3 100 mg/dL (90-180) 07/04/24 18:37 Complement C3c 85 mg/dL (82-185) 07/04/24 19:45 Complement C4 31 mg/dL (10-40) 07/04/24 18:37 Complement C4c 28 mg/dL (15-53) 07/04/24 19:45 CH50 Classical Pathway 55 U/mL (31-60) 07/04/24 19:45 Hep Bs Antigen Non-reactive (Nonreactive) 07/04/24 19:45 Hep Bs Antibody < 3.5 (11.5-1000) L 07/04/24 19:45 Hepatitis C Antibody Non-reactive (Nonreactive) 07/04/24 19:45 Vitals Last Vital Signs Temp 98.7 F 07/16/24 04:00 Pulse 69 07/16/24 05:13 Resp 15 07/16/24 04:00 BP 116/60 07/16/24 04:00 Pulse Ox 98 07/16/24 04:00 O2 Del Method Room Air 07/16/24 04:00 O2 Flow Rate 2 07/09/24 07:31 FiO2 21 07/15/24 23:09 Discharge Plan Discharge Patient Disposition: Home Condition: Stable Prescriptions: New nifedipine 30 mg Tablet Extended Release 24hr 30 mg PO DAILY 30 Days Qty: 30 0RF carvedilol 12.5 mg Tablet 12.5 mg PO BID 30 Days Qty: 60 0RF hydralazine 50 mg Tablet 50 mg PO TID 30 Days Qty: 90 0RF losartan 50 mg Tablet 50 mg PO DAILY 15 Days Qty: 15 0RF nifedipine 30 mg Tablet Extended Release 24hr 30 mg PO Q12H 15 Days Qty: 30 0RF carvedilol 12.5 mg Tablet 25 mg PO BID 15 Days Qty: 60 0RF clopidogrel 75 mg Tablet 75 mg PO DAILY 90 Days Qty: 90 0RF hydralazine 50 mg Tablet 50 mg PO TID 15 Days Qty: 45 0RF Continued atorvastatin 40 mg tablet 40 mg PO DAILY cetirizine 10 mg tablet 10 mg PO DAILY fluticasone furoate 50 mcg/actuation blister with device 1 inh inhalation BID insulin aspart U-100 [Novolog FlexPen U-100 Insulin] 100 unit/mL (3 mL) insulin pen 100 unit SUBCUT DAILY PRN (Reason: blood sugar) tamsulosin [Flomax] 0.4 mg capsule 0.4 mg PO DAILY Toujeo Max U-300 SoloStar 300 unit/mL (3 mL) insulin pen 60 unit SUBCUT BID albuterol sulfate [Ventolin HFA] 90 mcg/actuation HFA aerosol inhaler 2 puff inhalation Q6H PRN (Reason: sob) metoprolol tartrate 75 mg tablet 75 mg PO TID pregabalin [Lyrica] 100 mg capsule 100 mg PO TID multivitamin Tablet 1 tab PO DAILY cyclobenzaprine 10 mg tablet 10 mg PO TID Farxiga 5 mg tablet 5 mg PO DAILY terazosin 1 mg capsule 1 mg PO DAILY Rexulti 2 mg tablet 2 mg PO DAILY Qty: 30 2RF duloxetine 60 mg capsule,delayed release(DR/EC) 120 mg PO DAILY Qty: 60 2RF sertraline [Zoloft] 100 mg tablet 200 mg PO DAILY Qty: 60 2RF trazodone 100 mg tablet 400 mg PO .HS PRN (Reason: insomnia) Qty: 120 2RF pantoprazole [Protonix] 40 mg tablet,delayed release (DR/EC) 40 mg PO DAILY 30 Days Qty: 30 3RF aspirin 81 mg Tablet,Delayed Release (Dr/Ec) 81 mg PO DAILY Hold Instructions: Resume on 07/23/21. Discontinued diltiazem HCl [Cartia XT] 240 mg capsule,extended release 24hr 240 mg PO DAILY oxycodone 10 mg tablet 10 mg PO Q6H PRN (Reason: Pain) captopril 25 mg tablet 25 mg PO TID testosterone cypionate 100 mg/mL oil 100 mg SUBCUT Q7D ondansetron HCl [Zofran] 4 mg tablet 4 mg PO Q6H PRN (Reason: nausea and vomiting) Qty: 30 2RF Discharge Orders: Discharge Order (Routine); Ordered 07/16/24 Ordered By: Yaneth Demarco Referrals: [facility] [Outside] - 07/17/24 12:50 pm (Your chair time for Dialysis is 12:50 on Wednesday, Wednesday, Wednesday. Please arrive 30 minutes prior on your 1st treatment to fill out paperwork. ) Horne,Funmilayo, ONLINE USER EXPERIENCE STRATEGIST [Primary Care Provider] - (Please call Funmilayo Horne's office on Wednesday to a follow appointment within 7-10 days.) Sirena Felix FNP [Nurse Practitioner] - 07/24/24 Discharge Diet: As Directed and Cardiac Discharge Activity: Increase activity as tolerated Patient Instructions: Generalized Anxiety Disorder, Type 2 Diabetes, Nifedipine (By mouth), Hydralazine (By mouth), Carvedilol (By mouth), Hypertension, Acute Kidney Injury (GEN), Dialysis Diet (DC), Depression (GEN), GERD (Gastroesophageal Reflux Disease) (GEN), Acute Wound Care (DC), Peripheral Neuropathy (GEN), Hemodialysis (DC), Opioid Safety, Post Anesthesia Care Plan of Treatment: Monitor blood pressure at home. Goal is <150/90 Discharge Attestations Time Spent in Discharge Care*: less than 30 min Status at Discharge: Cognitive status at discharge: cognitively intact , Behavioral status at discharge: cooperative , Quality Metrics Clinical Quality Measures [ No reported AMI, CVA or VTE this stay] Coding Level of Care Code Acute Code for Chg Fwd Diagnoses Acute kidney injury superimposed on chronic kidney disease N17.9; N18.9 Time Spent (min) 25
--- NOTE | 2024-07-16 08:13 | PM.PN ---
Subjective Subjective: feels better. He is off of the nitro drip his blood pressure is improving. He still requires BiPAP at night and has some edema. Medications: Reviewed: Yes Medication Review Details: Current Medications Acetaminophen (Acetaminophen 325 Mg Tablet) 650 mg PO Q4H PRN PRN Reason: MILD PAIN OR INCREASE TEMP Last Admin: 07/10/24 03:11 Dose: 650 mg Al Hydrox/Mg Hydrox/Simethicone (Dhxd-Qfj-Dimjezdsq-Domingo 30 Ml Udc) 30 ml PO Q15M PRN PRN Reason: INDIGESTION Albuterol Sulfate (Albuterol 2.5 Mg/3 Ml Neb) 2.5 mg INHALATION ONCE PRN PRN Reason: WHEEZING Alprazolam (Alprazolam 0.5 Mg Tablet) 0.5 mg PO TID PRN PRN Reason: ANXIETY Last Admin: 07/15/24 20:16 Dose: 0.5 mg Aspirin (Aspirin 81 Mg Ec Tablet) 81 mg PO DAILY [facility] Last Admin: 07/15/24 08:51 Dose: 81 mg Atorvastatin Calcium (Atorvastatin 40 Mg Tablet) 40 mg PO DAILY [facility] Last Admin: 07/15/24 08:51 Dose: 40 mg Atropine Sulfate (Atropine 1 Mg/Ml Sdv 1 Ml) 0.5 mg IVP PRN PRN PRN Reason: Symptomatic bradycardia Carvedilol (Carvedilol 12.5 Mg Tablet) 25 mg PO BID [facility] Last Admin: 07/15/24 17:24 Dose: 25 mg Clopidogrel Bisulfate (Clopidogrel 75 Mg Tablet) 75 mg PO DAILY [facility] Last Admin: 07/15/24 08:51 Dose: 75 mg Duloxetine HCl (Duloxetine 60 Mg Capsule) 120 mg PO DAILY [facility] Last Admin: 07/15/24 08:52 Dose: 120 mg Epoetin Jaren (Epoetin Jaren 20,000 Unit/Ml Mdv (Non-Esrd)) 10,000 unit SUBCUT ONCE ONE Stop: 07/16/24 22:04 Famotidine (Famotidine 20 Mg/2 Ml Inj) 20 mg IVP Q12H [facility] Last Admin: 07/16/24 05:41 Dose: 20 mg Famotidine (Famotidine 20 Mg/2 Ml Inj) 20 mg IVP ONCE PRN PRN Reason: HEARTBURN Fentanyl (Fentanyl 50 Mcg/Ml Inj 2ml) 50 mcg IVP PRN PRN PRN Reason: Prior to sheath removal Glucagon (Glucagon 1 Mg/Ml Kit 1 Ml) 1 mg IM ONCE PRN; Protocol PRN Reason: Adult Acute Hypoglycemia Nursing Prot. Hydralazine HCl (Hydralazine 50 Mg Tablet) 50 mg PO TID [facility] Last Admin: 07/15/24 20:16 Dose: 50 mg Dextrose (D5w) 500 mls @ 0 mls/hr IV ONCE PRN; Protocol PRN Reason: Adult Acute Hypoglycemia Prot Dextrose (D10w) 125 mls @ 750 mls/hr IV PRN PRN; Protocol PRN Reason: Adult Acute Hypoglycemia Nursing Protocol Dextrose (D10w) 250 mls @ 1,000 mls/hr IV PRN PRN; Protocol PRN Reason: Adult Acute Hypoglycemia Nursing Protocol Sodium Chloride (Sodium Chloride 0.9%) 1,000 mls @ 0 mls/hr IV .Q0M PRN PRN Reason: hypotension or symptomatic Albumin Human (Albumin) 12.5 gm in 50 mls @ 60 mls/hr IV PRN PRN PRN Reason: Hypotension and/or symptomatic Insulin Glargine (Insulin Glargine 100 Units/1 Ml) 40 unit SUBCUT DAILY [facility] Last Admin: 07/15/24 10:44 Dose: Not Given Insulin Glargine (Insulin Glargine 100 Units/1 Ml) 40 unit SUBCUT BEDTIME [facility] Last Admin: 07/12/24 20:45 Dose: 40 unit Ipratropium Newell (Ipratropium 0.5 Mg/2.5 Ml Neb) 0.5 mg INHALATION ONCE PRN PRN Reason: WHEEZING Losartan Potassium (Losartan 50 Mg Tablet) 50 mg PO DAILY [facility] Last Admin: 07/15/24 09:02 Dose: 50 mg Magnesium Hydroxide (Magnesium Hydroxide 30 Ml Udc) 30 ml PO DAILY PRN PRN Reason: CONSTIPATION Metoclopramide HCl (Metoclopramide 5 Mg/Ml Sdv 2 Ml) 10 mg IVP ONCE PRN PRN Reason: N/V if zofran ineffective Naloxone HCl (Naloxone 0.4 Mg/Ml Sdv) 0.1 mg IVP Q2M PRN PRN Reason: RESPIRATORY RATE < 8/MIN Nifedipine (Nifedipine Er (24 Hr) 30 Mg Tablet) 60 mg PO Q12H [facility] Last Admin: 07/15/24 22:41 Dose: 60 mg Nitroglycerin (Nitroglycerin 0.4 Mg Sublingual Tablet) 0.4 mg SUBLINGUAL Q5M PRN PRN Reason: CHEST PAIN Ondansetron HCl (Ondansetron 2 Mg/Ml Sdv 2 Ml) 4 mg IVP Q5M PRN PRN Reason: NAUSEA AND VOMITING Last Admin: 07/13/24 19:57 Dose: 4 mg Ondansetron HCl (Ondansetron 2 Mg/Ml Sdv 2 Ml) 4 mg IVP Q2M PRN PRN Reason: NAUSEA Scopolamine (Scopolamine 1.5 Patch) 1 patch TRANSDERMA ONCE PRN PRN Reason: Nausea/ Vomiting Prophylaxis Sertraline HCl (Sertraline 100 Mg Tablet) 200 mg PO DAILY [facility] Last Admin: 07/15/24 08:51 Dose: 200 mg Tamsulosin HCl (Tamsulosin 0.4 Mg Capsule) 0.4 mg PO DAILY [facility] Last Admin: 07/15/24 08:51 Dose: 0.4 mg Terazosin HCl (Terazosin 1 Mg Capsule) 1 mg PO DAILY [facility] Last Admin: 07/15/24 08:51 Dose: 1 mg Trazodone HCl (Trazodone 100 Mg Tablet) 400 mg PO BEDTIME PRN PRN Reason: insomnia Last Admin: 07/15/24 20:36 Dose: 400 mg Vitals/I&O/Wt Last Vital Signs Temp 98.1 F 07/16/24 07:35 Pulse 75 07/16/24 07:35 Resp 15 07/16/24 07:35 BP 148/81 07/16/24 07:35 Pulse Ox 98 07/16/24 07:35 O2 Del Method CPAP 07/16/24 07:35 O2 Flow Rate 2 07/09/24 07:31 FiO2 21 07/15/24 23:09 07/15/24 07/16/24 07/16/24 22:59 06:59 14:59 Intake Total 1240 / 1600 Output Total 500 / 950 0 / 950 Balance 740 / 650 0 / 650 Weight last 48 hrs Weight 125.4 kg Weight 125.4 kg Physical Exam Narrative: Obese man in bed in no apparent distress. vs noted uses CPAP at night HEENT normocephalic atraumatic. Neck is supple no JVP. Lungs have dull bases. Heart is regular positive systolic murmur. Abdomen is soft positive bowel sounds. Extremities bilateral edema decreased Neuro awake alert oriented x 3. Patient has a right IJ permacath. Data 07/15/24 04:08 07/15/24 04:08 A&P Assessment and plan (1) Acute kidney injury superimposed on chronic kidney disease: 54-year-old gentleman with progressive renal insufficiency working diagnosis is diabetic hypertensive nephrosclerosis. 1. ESRD - HD per MWF schedule 2. htn monitor bp as outpt- consider maxing arb dose 3. NSTEMI - s/p stress test , s/p LHC -LAD stent 4. anemia- monitor hgb. EPO seen and examined w/ RN- telehealth-pt consents to telehealth and HD Plan as above Attestations Medical Necessity Statement*: bp improving, esrd hd mwf. hopefully d/c soon Time Spent in Patient Care: 16 - 35 minutes (>than 50% of time spent in counselling and/or direct pt care on unit). Coding Level of Care Code Acute Code for g Fwd Diagnoses Acute kidney injury superimposed on chronic kidney disease N17.9; N18.9
[2024-07-16] MEDS: carvedilol 12.5 mg Tablet 25 MG PO (08:30)
[2024-07-16] MEDS: aspirin 81 mg EC Tablet PO (08:30)
[2024-07-16] MEDS: atorvastatin 40 mg Tablet PO (08:30)
[2024-07-16] MEDS: tamsulosin 0.4 mg Capsule PO (08:30)
[2024-07-16] MEDS: sertraline 100 mg Tablet 200 MG PO (08:31)
[2024-07-16] MEDS: losartan 50 mg Tablet PO (08:31)
[2024-07-16] MEDS: clopidogrel 75 mg Tablet PO (08:31)
[2024-07-16] MEDS: duloxetine 60 mg Capsule 120 MG PO (08:31)
[2024-07-16] MEDS: hyDRALAzine 50 mg Tablet PO (08:31)
--- NOTE | 2024-07-16 09:46 | PC.NURSE ---
Discharge Note Patient discharged to home via POV accompanied by spouse. Discharge instructions reviewed with patient and/or representative personal service. Mobile pharmacy medications and/or prescriptions provided. Belongings/home medications returned.
== END 2024-07-16 09:48 | disposition home or self-care (01) | DRG 981 ==
LOC: ER 12:36 → MEDSURG 13:28 → CSU 16:03
PROVIDERS: Hospitalist; Internal Medicine; Internal Medicine Cardiovascular Disease; Internal Medicine Nephrology; Student in an Organized Health Care Education/Training Program; Surgery; Admitting Provider Internal Medicine; Emergency Provider Family Medicine; PCP Nurse Practitioner Family; Visit Provider Internal Medicine
PROC: 0WHG33Z Insertion of Infusion Device into Peritoneal Cavity, Percutaneous Approach (ICD-10-PCS; principal; 2024-07-06 12:00)
PROC: 4A023N7 Measurement of Cardiac Sampling and Pressure, Left Heart, Percutaneous Approach (ICD-10-PCS; principal; 2024-07-14 11:00)
PROC: 027034Z Dilation of Coronary Artery, One Artery with Drug-eluting Intraluminal Device, Percutaneous Approach (ICD-10-PCS; 2024-07-14 11:00)
DX: N17.9 Acute kidney failure, unspecified (principal); I21.4 Non-ST elevation (NSTEMI) myocardial infarction; F33.9 Major depressive disorder, recurrent, unspecified; I12.0 Hypertensive chronic kidney disease with stage 5 chronic kidney disease or end stage renal disease; E11.22 Type 2 diabetes mellitus with diabetic chronic kidney disease; N18.6 End stage renal disease; F17.220 Nicotine dependence, chewing tobacco, uncomplicated; I1A.0 Resistant hypertension; E11.42 Type 2 diabetes mellitus with diabetic polyneuropathy; E78.5 Hyperlipidemia, unspecified; F41.9 Anxiety disorder, unspecified; G89.29 Other chronic pain; M54.50 Low back pain, unspecified; E66.01 Morbid (severe) obesity due to excess calories; E87.6 Hypokalemia; R51.9 Headache, unspecified; T85.838A Hemorrhage due to other internal prosthetic devices, implants and grafts, initial encounter; T45.515A Adverse effect of anticoagulants, initial encounter; Y83.8 Other surgical procedures as the cause of abnormal reaction of the patient, or of later complication, without mention of misadventure at the time of the procedure; Y92.239 Unspecified place in hospital as the place of occurrence of the external cause; I25.119 Atherosclerotic heart disease of native coronary artery with unspecified angina pectoris; Z79.891 Long term (current) use of opiate analgesic; Z79.82 Long term (current) use of aspirin; Z79.4 Long term (current) use of insulin; Z79.84 Long term (current) use of oral hypoglycemic drugs; Z68.30 Body mass index [BMI] 30.0-30.9, adult
CPT/HCPCS: 36415; 36416; 71045; 76770; 77001; 78452; 80048; 80053; 81001; 82009; 82306; 82310; 82550; 82575; 82728; 82962; 83540; 83550; 83735; 83970; 84100; 84156; 84300; 84484; 85014; 85018; 85025; 85347; 86160; 86162; 86235; 86255; 86376; 86706; 86803; 87340; 90935; 93005; 93017; 93306; 93458; 94660; 96360; 96372; 96375; 96376; 99152; 99153; 99285; A9270; A9500; C1725; C1750; C1769; C1874; C1887; C1894; C9600; J0360; J0690; J1100; J1644; J1650; J1815; J2250; J2405; J2704; J2785; J3010; J3480; J3490; J7030; Q3014; Q9967

== ENCOUNTER → 2024-08-15 12:24 | Outpatient (BNVA) | payer MEDICARE, MEDICAID, SELFPAY | PROVIDERS: PCP Nurse Practitioner Family; Visit Provider Nurse Practitioner Family | DX: I12.0 Hypertensive chronic kidney disease with stage 5 chronic kidney disease or end stage renal disease (principal); E11.22 Type 2 diabetes mellitus with diabetic chronic kidney disease; N18.6 End stage renal disease; Z99.2 Dependence on renal dialysis; Z87.891 Personal history of nicotine dependence; Z79.4 Long term (current) use of insulin; I25.10 Atherosclerotic heart disease of native coronary artery without angina pectoris | CPT/HCPCS: 99214 ==

== ENCOUNTER 2024-09-11 20:00 | Outpatient (CLI) | payer MEDICARE, MEDICAID, SELFPAY | END 2024-09-11 20:01 | disposition home or self-care (01) | LOC: SLEEP 23:19 | PROVIDERS: PCP Nurse Practitioner Family; Visit Provider Nurse Practitioner Family | DX: G47.33 Obstructive sleep apnea (adult) (pediatric) (principal) | CPT/HCPCS: 95811 ==

== ENCOUNTER 2024-09-22 11:53 | Outpatient (CLI) | payer MEDICARE, MEDICAID, SELFPAY ==
--- NOTE | 2024-09-22 12:02 | XR_ITS ---
WS: [id number] Exam: XR foot LT min 3V* [id number] Date/Time of Exam: 09/22/2024 12:06 PM Reason For Exam: PAIN IN LEFT FOOT Comparison 11/13/2013. No acute fracture. Old healed fracture of the proximal fifth metatarsal with hypertrophic bone format ion. There is also hypertrophic cortical thickening involving the proximal third and fourth metatarsa ls. No soft tissue foreign bodies are seen. Minimal DJD at the first MP joint. XR/XR foot LT min 3V* [id number] IMPRESSION: 1. No acute fracture. 2. Healed fracture with bony hypertrophy of the proximal fifth metatarsal. Also cortical thickening of the proximal fourth and third metatarsals.
== END 2024-09-22 11:54 | disposition home or self-care (01) ==
PROVIDERS: Absent Provider Podiatrist Foot & Ankle Surgery; PCP Nurse Practitioner Family; Visit Provider Nurse Practitioner Family
DX: M79.672 Pain in left foot (principal); M21.962 Unspecified acquired deformity of left lower leg; Z87.81 Personal history of (healed) traumatic fracture
CPT/HCPCS: 73630

== ENCOUNTER → 2024-09-28 14:27 | Outpatient (BNVA) | payer MEDICARE, MEDICAID, SELFPAY | PROVIDERS: PCP Nurse Practitioner Family; Visit Provider Podiatrist Foot & Ankle Surgery | DX: E11.42 Type 2 diabetes mellitus with diabetic polyneuropathy; G62.9 Polyneuropathy, unspecified; Z79.4 Long term (current) use of insulin | CPT/HCPCS: 73630; 99203 ==

== ENCOUNTER → 2024-10-19 15:05 | Outpatient (BNVA) | payer MEDICARE, MEDICAID, OTHER, SELFPAY | PROVIDERS: PCP Nurse Practitioner Family; Visit Provider Internal Medicine Cardiovascular Disease | DX: I13.2 Hypertensive heart and chronic kidney disease with heart failure and with stage 5 chronic kidney disease, or end stage renal disease (principal); E11.22 Type 2 diabetes mellitus with diabetic chronic kidney disease; I25.10 Atherosclerotic heart disease of native coronary artery without angina pectoris; I50.9 Heart failure, unspecified; E11.649 Type 2 diabetes mellitus with hypoglycemia without coma; Z79.4 Long term (current) use of insulin; E78.5 Hyperlipidemia, unspecified; N18.6 End stage renal disease; Z99.2 Dependence on renal dialysis; Z87.891 Personal history of nicotine dependence | CPT/HCPCS: 99214 ==

== ENCOUNTER 2024-11-22 16:54 | Emergency (ER) | payer MEDICARE, MEDICAID, SELFPAY ==
[2024-11-22] VITALS (7 sets, daily range): BP systolic 173–220; BP diastolic 92–110; PULSE 58–72; RESP 14–22; TEMP 36.4; O2SAT 95–99; BMI 27.8
--- NOTE | 2024-11-22 16:58 | ECG_ITS ---
[facility] Test Date: 2024-11-22 Pat Name: Abimael Cochran Department: Room: Gender: Male Classification Counselor: : 1970 Requested By: Leandro Jones Order Number: [id number] Benjamin MD: Kareem Ennis M.D. Measurements Intervals [place] Rate: 58 P: -4 AL: 185 QRS: 7 QRSD: 96 T: 38 QT: 473 QTc: 466 Interpretive Statements SINUS BRADYCARDIA SEPTAL MYOCARDIAL INFARCTION , OF INDETERMINATE AGE [40+ ms Q WAVE IN V1/V2] Compared to ECG 07/09/2024 06:28:27 Sinus rhythm no longer present Myocardial infarct finding still present Electronically Signed On 11-22-2024 17:20:36 DOCTOR OF OSTEOPATHY by Kareem Ennis M.D. [id number]
--- NOTE | 2024-11-22 17:15 | XRR_ITS ---
PROCEDURE INFORMATION: Exam: XR Chest Exam date and time: 11/22/2024 6:20 PM Age: 54 years old Clinical indication: Pain; Chest pressure; Additional info: Chest pain TECHNIQUE: Imaging protocol: Radiologic exam of the chest. Views: 1 view. COMPARISON: CR XR chest 1V portable [id number] 07/09/2024 5:04 AM FINDINGS: Tubes, catheters and devices: Right IJ dialysis catheter with tip in SVC without change. Lungs: No acute pulmonary pathology. Pleural spaces: No pleural effusion. Heart/Mediastinum: Cardiomediastinal contours within normal limits. Diaphragm: Unchanged elevation right hemidiaphragm with mild right lateral CP angle blunting. Bones/joints: No significant pathology. XR/XR chest 1V portable [id number] IMPRESSION: No acute pathology or significant interval change.
[2024-11-22 18:18] LABS: Troponin(5th) Baseline 76 ng/L (0-15)
[2024-11-22 18:33] LABS: Alanine Aminotransferase 10 U/L (0-41); Albumin Level 4.3 g/dL (3.5-5.2); Alkaline Phosphatase 90 U/L (40-130); Anion Gap 19.6 (5-19); Aspartate Amino Transferase 12 U/L (0-40); Blood Urea Nitrogen 27 mg/dL (6-20); Calcium 8.6 mg/dL (8.5-10.5); Carbon Dioxide 24 mmol/L (22-29); Chloride 100 mmol/L (98-107); Creatinine Clr Calc Pharmacy 19.0199; Globulin 1.7 g/dL (1.3-4.6); Glucose 131 mg/dL (65-115); NT Pro B Type Natriuretic Pept 15440 pg/mL (0-125); Osmolality Calculated 295 mOsm/kg (285-295); Potassium 4.6 mmol/L (3.5-5.1); Sodium 139 mmol/L (136-145); Total Bilirubin 0.4 mg/dL (0.15-1.2)
--- NOTE | 2024-11-22 19:12 | W.ED.CHESTPA ---
HPI - Chest Pain General: Chief Complaint: Chest Pain Stated Complaint: chest pain Time Seen by Provider: 11/22/24 18:04 History of Present Illness: Patient presents to the ER with complaints of chest pain that started earlier today he rated an 8 out of 10 that started substernally radiate down his left arm he had jaw pain at the same time. Patient does say he did take 324 mg aspirin and the pain has improved he now rates it a 2-3 out of 10. Patient does have a history of an NE with cardiac stent placement back in July of last year. He said it felt very similar to this. Patient does have significant hypertension and is on dialysis. Patient says he has been compliant with his medicine. Related Data Home Medications ?Medication ?Instructions ?Recorded ?Confirmed albuterol sulfate 90 mcg/actuation 2 puff inhalation Q6H PRN sob 11/07/20 11/16/24 aerosol inhaler (Ventolin HFA) atorvastatin 40 mg tablet 40 mg PO DAILY 11/07/20 11/16/24 cetirizine 10 mg tablet 10 mg PO DAILY 11/07/20 11/16/24 fluticasone furoate 50 1 inh inhalation BID 11/07/20 11/16/24 mcg/actuation blister powder for inhalation insulin aspart U-100 100 unit/mL 100 unit SUBCUT DAILY PRN blood 11/07/20 11/16/24 (3 mL) subcutaneous pen (Novolog sugar FlexPen U-100 Insulin aspart) insulin glargine U-300 conc 300 60 unit SUBCUT BID 11/07/20 11/16/24 unit/mL (3 mL) subcutaneous pen (Toujeo Max U-300 SoloStar) tamsulosin 0.4 mg capsule (Flomax) 0.4 mg PO DAILY 11/07/20 11/16/24 aspirin 81 mg tablet,delayed 81 mg PO DAILY 02/03/21 11/16/24 release metoprolol tartrate 75 mg tablet 75 mg PO TID 05/29/21 11/16/24 multivitamin 1 tab PO DAILY 05/29/21 11/16/24 pregabalin 100 mg capsule (Lyrica) 100 mg PO TID 05/29/21 11/16/24 dapagliflozin propanediol 5 mg 5 mg PO DAILY 03/22/23 11/16/24 tablet (Farxiga) bumetanide 0.5 mg tablet 0.5 mg PO DAILY 09/20/24 11/16/24 calcitriol 0.25 mcg capsule 0.25 mcg PO .Mon,Wed & Wed. 09/20/24 11/16/24 carvedilol 12.5 mg tablet 12.5 mg PO BID 09/20/24 11/16/24 cyclobenzaprine 10 mg tablet 10 mg PO TID PRN 09/20/24 11/16/24 famotidine 20 mg tablet 20 mg PO DAILY 09/20/24 11/16/24 nisoldipine 40 mg tablet,extended 60 mg PO DAILY 09/20/24 11/16/24 release 24 hr oxycodone 10 mg tablet 10 mg PO BID PRN 09/20/24 11/16/24 terazosin 1 mg capsule 15 mg PO DAILY 09/20/24 11/16/24 testosterone cypionate 200 mg/mL 200 mg SUBCUT Q7D 09/20/24 11/16/24 intramuscular oil clonidine 0.1 mg/24 hr weekly transdermal .Weekly 11/16/24 11/16/24 transdermal patch Previous Rx's ?Medication ?Instructions ?Recorded pantoprazole 40 mg tablet,delayed 40 mg PO DAILY POST GASTRIC SLEEVE 07/17/21 release (Protonix) 30 days #30 tabs hydralazine 50 mg tablet 50 mg PO TID #270 tabs 08/16/24 Diabetic Shoes with custom insert #1 ea 09/28/24 5513 clopidogrel 75 mg tablet (Plavix) 75 mg PO DAILY 90 days #30 tabs 10/19/24 losartan 100 mg tablet 100 mg PO DAILY 30 days #30 tabs 10/19/24 brexpiprazole 2 mg tablet (Rexulti) 2 mg PO DAILY #30 tabs 11/16/24 buspirone 10 mg tablet 10 mg PO BID #60 tabs 11/16/24 duloxetine 60 mg capsule,delayed 120 mg (2 x 60 mg) PO DAILY #60 11/16/24 release caps hydroxyzine HCl 50 mg tablet 50 mg PO QID PRN anxiety #120 tabs 11/16/24 sertraline 100 mg tablet (Zoloft) 200 mg (2 x 100 mg) PO DAILY #60 11/16/24 tabs trazodone 100 mg tablet 400 mg (4 x 100 mg) PO .HS PRN 11/16/24 insomnia #120 tabs Allergies Allergy/AdvReac Type Severity Reaction Status Date / Time diphenhydramine (From Allergy Unknown Unknown Verified 11/22/24 17:05 Benadryl) ertapenem (From Invanz) Allergy Unknown Unknown Verified 11/22/24 17:05 Review of Systems General: Reports: 10 or more systems reviewed and unremarkable except in HPI and below PFSH ED PFSH: Medical History Peripheral neuropathy Generalized anxiety disorder Major depressive disorder, 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 Diabetes mellitus Hypertension Psychiatric care GERD (gastroesophageal reflux disease) Chronic kidney disease Hypertension Hyperlipidemia Diabetes Morbid obesity Bereavement Chronic major depressive disorder Colon polyp Encounter for screening colonoscopy Surgical History History of colonoscopy with polypectomy History of tonsillectomy History of foot surgery History of shoulder surgery Family History Denies family history of Anesthesia complication Bleeding disorder Social History Smoking and tobacco/nicotine status: former use of tobacco/nicotine Quit status (tobacco/nicotine): has tried quititng Number of times tried to quit tobacco: 3 Second hand smoke exposure: Yes (Occ.) Alcohol intake: current Alcohol intake frequency: holidays/special occasions only Alcohol type: beer Substance/Drug Use: current Substance/Drug use frequency: few times a week Other substance/drug use details: A few times a week. Physical Exam Const: COMMON NORMALS: no acute distress, average body habitus, patient oriented x3, no limitations, healthy appearing, alert and well nourished HENMT: COMMON NORMALS: normocephalic, atraumatic, hearing grossly normal bilaterally, external ears normal, Normal external nose present, moist oral mucous membranes and oropharynx normal HEAD & SCALP: normocephalic and atraumatic NOSE: Normal external nose present EXTERNAL EAR: Yes external ears normal Neck/C-Spine: COMMON NORMALS: full ROM, no lymphadenopathy, supple, no meningeal signs, no JVD and Thyroid normal THYROID: Thyroid normal Chest: COMMONS NORMALS: normal inspection of the chest and normal palpation of entire chest wall Resp: COMMON NORMALS: normal respiratory effort, No retractions, No use of accessory muscles and clear to auscultation bilaterally AUSCULTATION: clear to auscultation bilaterally Cardio: COMMON NORMALS: no JVD, regular rate, regular rhythm, S1 normal heart sound present, S2 normal heart sound present, No gallops present (Cardio), No clicks present (Cardio), No murmurs present (Cardio) and No rub (Cardio) RATE: regular rate RHYTHM: regular rhythm HEART SOUNDS: S1 normal heart sound present and S2 normal heart sound present GI: COMMON NORMALS: Normal to inspection, nondistended, normoactive bowel sounds present, Soft to palpation, non-tender, No hepatosplenomegaly present and no masses PALPATION: Yes Soft to palpation and Yes No hepatosplenomegaly present Neuro: COMMON NORMALS: patient oriented x3 SENSORIUM/ORIENTATION: Yes alert MENINGEAL SIGNS: Yes no meningeal signs Course Vital Signs: Vital signs: Vital Signs Temperature 97.6 F 11/22/24 17:02 Pulse Rate 60 11/22/24 20:48 Respiratory Rate 20 H 11/22/24 20:48 Blood Pressure 173/95 11/22/24 20:50 Pulse Oximetry 95 11/22/24 20:48 Oxygen Delivery Me thod Room Air 11/22/24 20:48 MDM - Chest Pain Medical Decision Making Patient was given 20 mg of hydralazine IVP 4 mg morphine IVP, clonidine 0.1 mg p.o. and this improved the patient's blood pressure decreased patient's pain to resolved. Patient's initial troponin was 76 with a 2-hour troponin being 70 for delta of approximately -6, chest x-ray showed no acute pathology or significant interval change. Patient had an elevated BUN/creatinine of 27 and 6.5 but patient is known to be on dialysis. Patient be discharged home and is instructed to follow-up with his PCP/soap slabber within the next 7 days for further evaluation treatment or if his pain returns he should come back to the ER for further evaluation. Medical Records I reviewed the patient's medical records. Lab Data I reviewed the patient's lab results. 11/22/24 17:30 Radiology Impressions Chest X-Ray 11/22/24 17:15 IMPRESSION: No acute pathology or significant interval change. Laboratory Results Sodium 139 mmol/L (136-145) 11/22/24 17:30 Potassium 4.6 mmol/L (3.5-5.1) 11/22/24 17:30 Chloride 100 mmol/L (98-107) 11/22/24 17:30 Carbon Dioxide 24 mmol/L (22-29) 11/22/24 17:30 Anion Gap 19.6 (5-19) H 11/22/24 17:30 BUN 27 mg/dL (6-20) H 11/22/24 17:30 Creatinine 6.5 mg/dL (0.7-1.2) H* 11/22/24 17:30 GFR Calculation 9.0 mL/min (90-130) L 11/22/24 17:30 Glucose 131 mg/dL (65-115) H 11/22/24 17:30 Calculated Osmolality 295 mOsm/kg (285-295) 11/22/24 17:30 Calcium 8.6 mg/dL (8.5-10.5) 11/22/24 17:30 Phosphorus 5.5 mg/dL (2.5-4.5) H 11/22/24 19:30 Magnesium 2.2 mg/dL (1.7-2.3) 11/22/24 19:30 Total Bilirubin 0.4 mg/dL (0.15-1.2) 11/22/24 17:30 AST 12 U/L (0-40) 11/22/24 17:30 ALT 10 U/L (0-41) 11/22/24 17:30 Alkaline Phosphatase 90 U/L (40-130) 11/22/24 17:30 Troponin T Baseline 76 ng/L (0-15) H 11/22/24 17:30 Troponin T 120 Minute 70.77 ng/L (0-15) H 11/22/24 19:30 Delta Troponin T -5.23 ABS# (0-10) L 11/22/24 19:30 NT-Pro-B Natriuret Pep 43174 pg/mL (0-125) H 11/22/24 17:30 Total Protein 6.0 g/dL (6.6-8.7) L 11/22/24 17:30 Albumin 4.3 g/dL (3.5-5.2) 11/22/24 17:30 Globulin 1.7 g/dL (1.3-4.6) 11/22/24 17:30 All radiology interpretation(s) finalized by discharge Discharge Plan Discharge Patient Disposition: Home Clinical Impression: ESRD (end stage renal disease) on dialysis, Benign essential HTN Chest pain Qualifiers: Chest pain type: unspecified Qualified Code(s): R07.9 - Chest pain, unspecified Condition: Stable Prescriptions: No Action atorvastatin 40 mg tablet 40 mg PO DAILY cetirizine 10 mg tablet 10 mg PO DAILY fluticasone furoate 50 mcg/actuation blister with device 1 inh inhalation BID insulin aspart U-100 [Novolog FlexPen U-100 Insulin] 100 unit/mL (3 mL) insulin pen 100 unit SUBCUT DAILY PRN (Reason: blood sugar) tamsulosin [Flomax] 0.4 mg capsule 0.4 mg PO DAILY Toujeo Max U-300 SoloStar 300 unit/mL (3 mL) insulin pen 60 unit SUBCUT BID albuterol sulfate [Ventolin HFA] 90 mcg/actuation HFA aerosol inhaler 2 puff inhalation Q6H PRN (Reason: sob) metoprolol tartrate 75 mg tablet 75 mg PO TID pregabalin [Lyrica] 100 mg capsule 100 mg PO TID multivitamin Tablet 1 tab PO DAILY cyclobenzaprine 10 mg tablet 10 mg PO TID PRN Farxiga 5 mg tablet 5 mg PO DAILY clopidogrel [Plavix] 75 mg tablet 75 mg PO DAILY 90 Days Qty: 30 3RF losartan 100 mg tablet 100 mg PO DAILY 30 Days Qty: 30 5RF (DME) Diabetic Shoes with custom insert 5513 See Rx Instructions .Route .MEDSUPPLY Qty: 1 0RF Rx Instructions: As directed by the shoe deandre bumetanide 0.5 mg tablet 0.5 mg PO DAILY Rx Instructions: On non-dialysis days. nisoldipine 40 mg tablet extended release 24 hr 60 mg PO DAILY oxycodone 10 mg tablet 10 mg PO BID PRN Rx Instructions: Max of 2 Daily testosterone cypionate 200 mg/mL oil 200 mg SUBCUT Q7D carvedilol 12.5 mg tablet 12.5 mg PO BID Rx Instructions: must administer with a meal/food calcitriol 0.25 mcg capsule 0.25 mcg PO .Mon,Wed & Fri. famotidine 20 mg tablet 20 mg PO DAILY terazosin 1 mg capsule 15 mg PO DAILY Rx Instructions: 5 mg HS & 10 mg AM. Rexulti 2 mg tablet 2 mg PO DAILY Qty: 30 11RF buspirone 10 mg tablet 10 mg PO BID Qty: 60 11RF duloxetine 60 mg capsule,delayed release(DR/EC) 120 mg PO DAILY Qty: 60 11RF hydroxyzine HCl 50 mg tablet 50 mg PO QID PRN (Reason: anxiety) Qty: 120 11RF sertraline [Zoloft] 100 mg tablet 200 mg PO DAILY Qty: 60 11RF trazodone 100 mg tablet 400 mg PO .HS PRN (Reason: insomnia) Qty: 120 11RF clonidine 0.1 mg/24 hr patch weekly transdermal .Weekly hydralazine 50 mg tablet 50 mg PO TID Qty: 270 3RF pantoprazole [Protonix] 40 mg tablet,delayed release (DR/EC) 40 mg PO DAILY 30 Days Qty: 30 3RF aspirin 81 mg Tablet,Delayed Release (Dr/Ec) 81 mg PO DAILY Discharge Orders: Discharge ED (Routine); Ordered 11/22/24 Ordered By: Drew Gallagher Referrals: Ozzie,Funmilayo, CLINICAL SOCIAL WORKER [Primary Care Provider] - 1 week Patient Instructions: Hypertension, Chest Pain (ED), End Stage Kidney Disease (ED) Activity Restrictions/Additional Instructions: Your evaluation in the ER did not show any acute cardiac injury. However did show your blood pressure was significantly elevated. We gave you several medicines to help lower it. Please keep a blood pressure log and take this with you to your next appointment with your soap slabber and/or primary care practitioner within the next 7 days for further evaluation and treatment. If your chest pain returns please feel free to return to the ER. Print Language: Armenian Coding Level of Care Code ED Animal Care Assistant for Betito Jung
--- NOTE | 2024-11-22 19:15 | ECG_ITS ---
[facility] Test Date: 2024-11-22 Pat Name: Abimael Cochran Department: Room: Gender: Male Trade Clerk: : 1970 Requested By: Drew Gallagher Order Number: [id number] Benjamin MD: ROMIE KEATING Measurements Intervals [place] Rate: 57 P: -5 [place]: 178 QRS: 14 QRSD: 97 T: 7 QT: 484 QTc: 473 Interpretive Statements SINUS BRADYCARDIA WITH OCCASIONAL SUPRAVENTRICULAR PREMATURE COMPLEXES PROLONGED QT INTERVAL Compared to ECG 11/22/2024 16:58:13 Prolonged QT interval now present Myocardial infarct finding no longer present Electronically Signed On 11-25-2024 19:36:25 CMV DRIVER by ROMIE KEATING [email or web address] [id number]
[2024-11-22] MEDS: morphine 4 mg/mL SDV 1 mL IVP (19:36)
[2024-11-22] MEDS: hyDRALAzine 20 mg/mL INJ 1 mL IVP (19:36)
--- NOTE | 2024-11-22 19:46 | PC.NURSE ---
ASSUMED CARE OF PT AT 1900
[2024-11-22 19:52] LABS: Magnesium 2.2 mg/dL (1.7-2.3); Phosphorus 5.5 mg/dL (2.5-4.5)
[2024-11-22 19:53] LABS: Troponin 5 2HR 70.77 ng/L (0-15)
[2024-11-22 19:54] LABS: Troponin 5 2HR Delta -5.23 ABS# (0-10)
[2024-11-22] MEDS: cloNIDine 0.1 mg Tablet 0.2 MG PO (20:50)
--- NOTE | 2024-11-22 20:51 | PC.NURSE ---
PER PROVIDER, ONLY 0.1 OF CLONIDINE WAS GIVEN. PT BP WAS 173/95
== END 2024-11-22 21:24 | disposition home or self-care (01) ==
PROVIDERS: Emergency Provider Emergency Medicine; PCP Nurse Practitioner Family
DX: E11.22 Type 2 diabetes mellitus with diabetic chronic kidney disease (principal); I12.0 Hypertensive chronic kidney disease with stage 5 chronic kidney disease or end stage renal disease; N18.6 End stage renal disease; Z99.2 Dependence on renal dialysis; Z79.02 Long term (current) use of antithrombotics/antiplatelets; Z79.82 Long term (current) use of aspirin; Z87.891 Personal history of nicotine dependence; E78.5 Hyperlipidemia, unspecified
CPT/HCPCS: 36415; 71045; 80048; 80053; 83735; 83880; 84100; 84484; 93005; 96374; 96375; 99285; J0360; J2270

== ENCOUNTER → 2024-11-30 14:55 | Outpatient (BNVA) | payer MEDICARE, SELFPAY | PROVIDERS: PCP Nurse Practitioner Family; Visit Provider Podiatrist Foot & Ankle Surgery | DX: E11.29 Type 2 diabetes mellitus with other diabetic kidney complication (principal); L60.3 Nail dystrophy; L84 Corns and callosities; E11.649 Type 2 diabetes mellitus with hypoglycemia without coma; Z79.4 Long term (current) use of insulin; N18.6 End stage renal disease; Z99.2 Dependence on renal dialysis; G62.89 Other specified polyneuropathies | CPT/HCPCS: 11055; 11721 ==

== ENCOUNTER 2024-12-25 13:29 | Emergency (ER) | payer MEDICARE, MEDICAID, SELFPAY ==
--- NOTE | 2024-12-25 13:30 | XRR_ITS ---
PROCEDURE INFORMATION: Exam: XR Left Knee Exam date and time: 12/25/2024 1:42 PM Age: 54 years old Clinical indication: Injury or trauma; Fall; Blunt trauma; Knee; Left TECHNIQUE: Imaging protocol: Radiologic exam of the left knee. Views: 3 views. COMPARISON: MR knee LT wo con* [id number] 01/18/2018 4:11 PM FINDINGS: Bones/joints: There is no evidence for acute fracture or malalignment. Soft tissues: Normal. XR/XR knee LT 3V* [id number] IMPRESSION: No acute findings.
[2024-12-25 13:33] VITALS: BP 152/74; PULSE 57; TEMP 36.7; O2SAT 98; BMI 29.3
--- NOTE | 2024-12-25 13:41 | W.ED.EXTPRO ---
HPI - Extremity Problem General: Chief complaint: Extremity Injury, Lower Stated complaint: L knee pain, fall Time Seen by Provider: 12/25/24 13:31 Source: patient Mode of arrival: ambulatory Limitations: no limitations History of Present Illness: 54-year-old male states he fell this morning. States he fell onto his left knee and then twisted it as well he has been having severe knee pain since then states not able to bear weight on that left leg without pain. He denies any other injuries denies any hip pain denies hitting his head Associated symptoms: Deny chest pain, fever(s) or rash Related Data Home Medications ?Medication ?Instructions ?Recorded ?Confirmed atorvastatin 40 mg tablet 40 mg PO DAILY 11/07/20 12/25/24 insulin aspart U-100 100 unit/mL 100 unit SUBCUT DAILY PRN blood 11/07/20 12/25/24 (3 mL) subcutaneous pen (Novolog sugar FlexPen U-100 Insulin aspart) insulin glargine U-300 conc 300 60 unit SUBCUT BID 11/07/20 12/25/24 unit/mL (3 mL) subcutaneous pen (Toujeo Max U-300 SoloStar) tamsulosin 0.4 mg capsule (Flomax) 0.4 mg PO DAILY 11/07/20 12/25/24 aspirin 81 mg tablet,delayed 81 mg PO DAILY 02/03/21 12/25/24 release bumetanide 0.5 mg tablet 0.5 mg PO DAILY 09/20/24 12/25/24 carvedilol 12.5 mg tablet 12.5 mg PO BID 09/20/24 12/25/24 famotidine 20 mg tablet 20 mg PO DAILY 09/20/24 12/25/24 oxycodone 10 mg tablet 10 mg PO BID PRN Pain 09/20/24 12/25/24 testosterone cypionate 200 mg/mL 200 mg SUBCUT Q7D 09/20/24 12/25/24 intramuscular oil clonidine 0.1 mg/24 hr weekly 1 patch transdermal .Weekly 11/16/24 12/25/24 transdermal patch metoprolol tartrate 100 mg tablet 100 mg PO BID 12/25/24 12/25/24 nifedipine 60 mg tablet,extended 60 mg PO DAILY 12/25/24 12/25/24 release 24 hr sevelamer carbonate 800 mg tablet 800 mg PO TID 12/25/24 12/25/24 terazosin 5 mg capsule 5 mg PO DAILY 12/25/24 12/25/24 torsemide 10 mg tablet 10 mg PO .NONDIALYSISDAYS 12/25/24 12/25/24 Previous Rx's ?Medication ?Instructions ?Recorded pantoprazole 40 mg tablet,delayed 40 mg PO DAILY POST GASTRIC SLEEVE 07/17/21 release (Protonix) 30 days #30 tabs hydralazine 50 mg tablet 50 mg PO TID #270 tabs 08/16/24 clopidogrel 75 mg tablet (Plavix) 75 mg PO DAILY 90 days #30 tabs 10/19/24 losartan 100 mg tablet 100 mg PO DAILY 30 days #30 tabs 10/19/24 brexpiprazole 2 mg tablet (Rexulti) 2 mg PO DAILY #30 tabs 11/16/24 buspirone 10 mg tablet 10 mg PO BID #60 tabs 11/16/24 duloxetine 60 mg capsule,delayed 120 mg (2 x 60 mg) PO DAILY #60 11/16/24 release caps hydroxyzine HCl 50 mg tablet 50 mg PO QID PRN anxiety #120 tabs 11/16/24 sertraline 100 mg tablet (Zoloft) 200 mg (2 x 100 mg) PO DAILY #60 11/16/24 tabs trazodone 100 mg tablet 400 mg (4 x 100 mg) PO .HS PRN 11/16/24 insomnia #120 tabs Allergies Allergy/AdvReac Type Severity Reaction Status Date / Time diphenhydramine (From Allergy Unknown Unknown Verified 12/25/24 13:38 Benadryl) ertapenem (From Invanz) Allergy Unknown Unknown Verified 12/25/24 13:38 Review of Systems Const: Denies: fever(s), chills, body aches or change in appetite ENMT: Denies: throat pain or dental pain Card: Denies: chest pain Resp: Denies: dyspnea GI: Reports: abdominal pain; Denies: nausea, vomiting or diarrhea Musc: Reports: extremity pain; Denies: neck pain or back pain Skin/Breast: Denies: rash Neuro: Denies: headache(s) PFSH ED PFSH: Medical History Peripheral neuropathy Generalized anxiety disorder Major depressive disorder, 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 Diabetes mellitus Hypertension Psychiatric care GERD (gastroesophageal reflux disease) Chronic kidney disease Hypertension Hyperlipidemia Diabetes Morbid obesity Bereavement Chronic major depressive disorder Colon polyp Encounter for screening colonoscopy Surgical History History of colonoscopy with polypectomy History of tonsillectomy History of foot surgery History of shoulder surgery Family History Denies family history of Anesthesia complication Bleeding disorder Social History Smoking and tobacco/nicotine status: former use of tobacco/nicotine Quit status (tobacco/nicotine): has tried quititng Number of times tried to quit tobacco: 3 Second hand smoke exposure: Yes (Occ.) Alcohol intake: current Alcohol intake frequency: holidays/special occasions only Alcohol type: beer Substance/Drug Use: current Substance/Drug use frequency: few times a week Other substance/drug use details: A few times a week. Physical Exam Const: COMMON NORMALS: no acute distress, patient oriented x3 and healthy appearing HENMT: COMMON NORMALS: normocephalic and atraumatic HEAD & SCALP: normocephalic and atraumatic Eye: COMMON NORMALS: conjunctivae normal CONJUNCTIVA: Yes conjunctivae normal Neck/C-Spine: COMMON NORMALS: full ROM and supple Chest: COMMONS NORMALS: normal inspection of the chest Resp: COMMON NORMALS: normal respiratory effort Cardio: COMMON NORMALS: regular rate RATE: regular rate Extremity: NARRATIVE EXTREMITY EXAM: Tenderness noted left knee some swelling distal pulses sensation intact no pain to his ankle or hip Neuro: COMMON NORMALS: patient oriented x3, moves all extremities and no focal motor deficits Psych: COMMON NORMALS: mental status grossly normal, Normal thought process present and cooperative THOUGHT PROCESS: Normal thought process present Skin: COMMON NORMALS: no rashes or lesions noted and no wounds GENERAL SKIN EXAM: no rashes or lesions noted Course Vital Signs: Vital signs: Vital Signs Temperature 98.1 F 12/25/24 13:33 Pulse Rate 56 L 12/25/24 13:53 Blood Pressure 154/79 12/25/24 13:53 Pulse Oximetry 99 12/25/24 13:53 Oxygen Delivery Me thod Room Air 12/25/24 13:53 MDM - Extremity (Nontraumatic) Medical Decision Making Patient presents with a left knee sprain x-ray shows no fracture he is to be nonweightbearing placed him into crutches and knee immobilizer he is to follow-up with orthopedics return if worsening he understands agrees to plan. Medical Records I reviewed the patient's medical records. XR interpretation done by ED provider, pending radiology final review ED provider radiology interpretation(s): xr L knee: no acute abnormality Discharge Plan Discharge Patient Disposition: Home Clinical Impression: Left knee sprain Condition: Stable Prescriptions: No Action atorvastatin 40 mg tablet 40 mg PO DAILY insulin aspart U-100 [Novolog FlexPen U-100 Insulin] 100 unit/mL (3 mL) insulin pen 100 unit SUBCUT DAILY PRN (Reason: blood sugar) tamsulosin [Flomax] 0.4 mg capsule 0.4 mg PO DAILY Toujeo Max U-300 SoloStar 300 unit/mL (3 mL) insulin pen 60 unit SUBCUT BID clopidogrel [Plavix] 75 mg tablet 75 mg PO DAILY 90 Days Qty: 30 3RF losartan 100 mg tablet 100 mg PO DAILY 30 Days Qty: 30 5RF bumetanide 0.5 mg tablet 0.5 mg PO DAILY Rx Instructions: On non-dialysis days. oxycodone 10 mg tablet 10 mg PO BID PRN (Reason: Pain) Rx Instructions: Max of 2 Daily testosterone cypionate 200 mg/mL oil 200 mg SUBCUT Q7D carvedilol 12.5 mg tablet 12.5 mg PO BID Rx Instructions: must administer with a meal/food famotidine 20 mg tablet 20 mg PO DAILY Rexulti 2 mg tablet 2 mg PO DAILY Qty: 30 11RF buspirone 10 mg tablet 10 mg PO BID Qty: 60 11RF duloxetine 60 mg capsule,delayed release(DR/EC) 120 mg PO DAILY Qty: 60 11RF hydroxyzine HCl 50 mg tablet 50 mg PO QID PRN (Reason: anxiety) Qty: 120 11RF sertraline [Zoloft] 100 mg tablet 200 mg PO DAILY Qty: 60 11RF trazodone 100 mg tablet 400 mg PO .HS PRN (Reason: insomnia) Qty: 120 11RF clonidine 0.1 mg/24 hr patch weekly 1 patch transdermal .Weekly hydralazine 50 mg tablet 50 mg PO TID Qty: 270 3RF pantoprazole [Protonix] 40 mg tablet,delayed release (DR/EC) 40 mg PO DAILY 30 Days Qty: 30 3RF aspirin 81 mg Tablet,Delayed Release (Dr/Ec) 81 mg PO DAILY terazosin 5 mg capsule 5 mg PO DAILY metoprolol tartrate 100 mg tablet 100 mg PO BID torsemide 10 mg tablet 10 mg PO .NONDIALYSISDAYS nifedipine 60 mg tablet extended release 24hr 60 mg PO DAILY sevelamer carbonate 800 mg tablet 800 mg PO TID Discharge Orders: Discharge ED (Routine); Ordered 12/25/24 Ordered By: Raffy Krause Referrals: Jeremiah Colbert DO [Physician] - 4-7 days Horne,ALONDRA Mello [Primary Care Provider] - Discharge Diet: Advance as tolerated Discharge Activity: Limit activity as instructed and Use walker/crutches as instructed Patient Instructions: Knee Sprain (ED), Knee Immobilizer (ED) Print Language: Georgian Coding Level of Care Code ED [employer] for Betito Jung
[2024-12-25] MEDS: HYDROcodone-acetaminophen 7.5-325 mg Tablet 1 TAB PO (13:51)
[2024-12-25 13:53] VITALS: BP 154/79; PULSE 56; O2SAT 99
[2024-12-25 14:31] VITALS: BP 169/96; PULSE 61; O2SAT 97
--- NOTE | 2024-12-25 16:08 | DCPLANNER ---
messaged ortho for er f/u
== END 2024-12-25 14:32 | disposition home or self-care (01) ==
PROVIDERS: Emergency Provider Emergency Medicine; PCP Nurse Practitioner Family
DX: S83.92XA Sprain of unspecified site of left knee, initial encounter (principal); Z79.4 Long term (current) use of insulin; Z79.02 Long term (current) use of antithrombotics/antiplatelets; Z79.82 Long term (current) use of aspirin; Z87.891 Personal history of nicotine dependence; E78.5 Hyperlipidemia, unspecified; I10 Essential (primary) hypertension; E11.9 Type 2 diabetes mellitus without complications; I25.119 Atherosclerotic heart disease of native coronary artery with unspecified angina pectoris; W19.XXXA Unspecified fall, initial encounter
CPT/HCPCS: 29530; 73562; 99283; E0114; J9999

== ENCOUNTER 2025-01-02 06:00 | Outpatient (CLI) | payer OTHER, MEDICAID, SELFPAY | END 2025-01-02 23:59 | disposition home or self-care (01) | LOC: SPT 01-03 11:12 | PROVIDERS: Visit Provider Student in an Organized Health Care Education/Training Program | DX: Z46.89 Encounter for fitting and adjustment of other specified devices (principal); S83.8X2D Sprain of other specified parts of left knee, subsequent encounter; W19.XXXD Unspecified fall, subsequent encounter | CPT/HCPCS: 20610; 97760; 99204; J3301; J9999; L1812 ==

== ENCOUNTER → 2025-01-02 10:24 | Outpatient (BNVA) | payer MEDICARE, MEDICAID, SELFPAY | PROVIDERS: PCP Nurse Practitioner Family; Visit Provider Student in an Organized Health Care Education/Training Program | DX: S83.8X2A Sprain of other specified parts of left knee, initial encounter (principal); S89.92XA Unspecified injury of left lower leg, initial encounter; X58.XXXA Exposure to other specified factors, initial encounter | CPT/HCPCS: 73560; 73565 ==

== ENCOUNTER 2025-01-23 13:45 | Outpatient (CLI) | payer OTHER, MEDICAID, SELFPAY ==
[2025-01-03 10:37] VITALS: BP 146/81; BMI 28.8
--- NOTE | 2025-01-23 09:00 | CT_ITS ---
WS: [id number] CT LEFT KNEE, NONCONTRAST HISTORY: LEFT KNEE INJURY/FALL/RULE OUT FRACTURE Technique: All CT scans at [facility] use at least one of these dose optimization techniques: automated exposure control; mA and/or kV adjustment per patient size (includes targeted exams where dose is matched to clinical indication); or iterative reconstruction. DLP: 534.53 mGy.cm COMPARISON: Radiograph 01/02/2025 No displaced fracture is identified. Subtle line of increased density along the medial tibial plateau cortex. This is asymmetric to the lateral compartment and may represent an acute trabecular injury. There is no loose body or fragment. Numerous small curvilinear fragments along the medial femoral condyle. There is mild soft tissue thickening along the expected location of the MCL. Hypertrophic osteophyte along the central medial femoral condyle extends into the joint space nearly contacting the medial tibial spine. Fibular head is intact. Small suprapatellar joint effusion. Mild popliteal artery arthropathy. No intra- articular bodies. CT/CT knee LT wo con* [id number] IMPRESSION: 1. Medial tibial plateau subchondral area increased bone density. This may rep resent a very subtle trabecular injury. No definite fracture and no intra-artic ular body. 2. Numerous curvilinear osseous or calcific fragments along the medial femoral condyle. This can be seen with acute avulsion of the medial collateral ligamen t. Calcifications can also develop from a prior remote MCL tear (Trish-Sti kerry disease). 3. MRI LEFT knee would provide additional information concerning the acuteness of both MCL and medial tibial plateau.
== END 2025-01-23 13:46 | disposition home or self-care (01) ==
PROVIDERS: PCP Nurse Practitioner Family; Visit Provider Student in an Organized Health Care Education/Training Program
DX: S89.92XA Unspecified injury of left lower leg, initial encounter (principal); X58.XXXA Exposure to other specified factors, initial encounter; R93.6 Abnormal findings on diagnostic imaging of limbs; M79.89 Other specified soft tissue disorders; M25.762 Osteophyte, left knee; M25.462 Effusion, left knee; M12.862 Other specific arthropathies, not elsewhere classified, left knee
CPT/HCPCS: 73700; 80061; 83036

== ENCOUNTER → 2025-02-01 13:32 | Outpatient (BNVA) | payer OTHER, MEDICAID, SELFPAY ==
[2025-01-03 10:37] VITALS: BP 146/81; BMI 28.8
== END ==
PROVIDERS: PCP Nurse Practitioner Family; Visit Provider Podiatrist Foot & Ankle Surgery
DX: E11.29 Type 2 diabetes mellitus with other diabetic kidney complication (principal); L60.3 Nail dystrophy; L84 Corns and callosities; E11.649 Type 2 diabetes mellitus with hypoglycemia without coma; Z79.4 Long term (current) use of insulin; N18.6 End stage renal disease; Z99.2 Dependence on renal dialysis; G62.89 Other specified polyneuropathies
CPT/HCPCS: 11055; 11721

== ENCOUNTER 2025-02-06 11:25 | Outpatient (CLI) | payer OTHER, MEDICAID, SELFPAY ==
[2025-01-03 10:37] VITALS: BP 146/81; BMI 28.8
--- NOTE | 2025-02-06 11:45 | MR_ITS ---
WS: [id number] MRI LEFT KNEE NONCONTRAST TECHNIQUE: Axial PD, coronal PD fat sat, coronal PD, sagittal PD, and sagittal PD fat-sat images obtained. CLINICAL INFORMATION: left knee pain/injury FINDINGS: Advanced degenerative narrowing medial joint compartment. Moderate tricompartmental arthritis. Grade IV chondromalacia patella. Shallow trochlear groove similar to previous. Recommend correlation for patellar instability. ACL and PCL appear intact. Suggestion of a tiny hairline impaction fracture invol ving the medial tibial plateau with trace edema and increased trabecular density seen on the recent CT. Edema with irregularity involving the lateral posterior tibial plateau also consistent with small nondisplaced fracture with contusion. Small fracture lines with slight irregularity and slight depression visualized in this area. Chronic thinning of the medial and lateral meniscus. Chronic intrasubstance signal abnormality involving the posterior horn lateral meniscus. Horizontal tear involving the free edge of the lateral meniscus. Tiny horizontal tear involving the posterior horn medial meniscus extending to the articular surface. Normal lateral collateral ligament. Small amount of fluid and edema along the MCL which appears intact, compatible with grade 1-2 injury. MR/MR knee LT wo con* [id number] IMPRESSION: 1. Suspected nondisplaced fracture involving the posterior lateral tibial plat eau with a small fracture line visualized and edema. Slight depression. 2. Trace edema with a tiny nondisplaced fracture involving the medial tibial p lateau. 3. Grade 1-2 injury MCL. 4. ACL and PCL appear intact. 5. Grade IV chondromalacia patella with shallow trochlear groove. 6. Horizontal tears involving the peripheral lateral meniscus and posterior ho rn medial meniscus Outbridge grading: grade IV: full-thickness cartilage loss with underlying bone reactive changes
== END 2025-02-06 11:26 | disposition home or self-care (01) ==
PROVIDERS: PCP Nurse Practitioner Family; Visit Provider Student in an Organized Health Care Education/Training Program
DX: M17.12 Unilateral primary osteoarthritis, left knee (principal); R93.6 Abnormal findings on diagnostic imaging of limbs; M22.42 Chondromalacia patellae, left knee; S83.262A Peripheral tear of lateral meniscus, current injury, left knee, initial encounter; X58.XXXA Exposure to other specified factors, initial encounter
CPT/HCPCS: 73721

== ENCOUNTER → 2025-04-05 14:19 | Outpatient (BNVA) | payer MEDICARE, MEDICAID, SELFPAY ==
[2025-01-03 10:37] VITALS: BP 146/81; BMI 28.8
== END ==
PROVIDERS: PCP Nurse Practitioner Family; Visit Provider Student in an Organized Health Care Education/Training Program
DX: R63.4 Abnormal weight loss (principal); K92.1 Melena
CPT/HCPCS: 99204

== ENCOUNTER 2025-04-12 09:10 | Inpatient (IN) | payer MEDICARE, MEDICAID, SELFPAY ==
[2025-01-03 10:37] VITALS: BP 146/81; BMI 28.8
[2025-04-12] VITALS (7 sets, daily range): BP systolic 128–186; BP diastolic 62–95; PULSE 74–80; RESP 16–29; TEMP 36.5–37.1; O2SAT 90–96; BMI 27.0
--- NOTE | 2025-04-12 09:13 | ECG_ITS ---
[facility] Test Date: 2025-04-12 Pat Name: Abimael Cochran Department: Room: Gender: Male Box Stamper: : 1970 Requested By: Leandro Jones Order Number: [id number] Benjamin MD: Damaso Rivera M.D. Measurements Intervals [place] Rate: 72 P: 36 MN: 165 QRS: 7 QRSD: 105 T: 32 QT: 364 QTc: 399 Interpretive Statements SINUS RHYTHM WITH SINUS ARRHYTHMIA POSSIBLE LEFT ATRIAL ENLARGEMENT [-0.1mV P-WAVE IN V1/V2] POSSIBLE LEFT VENTRICULAR HYPERTROPHY [VOLTAGE CRITERIA PLUS LAE OR QRS WIDENING] POSSIBLE SEPTAL MYOCARDIAL INFARCTION , OF INDETERMINATE AGE [30 ms Q WAVE IN V1/V2] Compared to ECG 11/22/2024 19:10:29 Myocardial infarct finding now present Sinus bradycardia no longer present Prolonged QT interval no longer present Electronically Signed On 04-12-2025 09:18:03 CDT by Damaso Rivera M.D. [email or web address]
--- NOTE | 2025-04-12 09:13 | XR_ITS ---
WS: [id number] XR chest 1V portable [id number] REASON FOR EXAM: chest pain FINDINGS: Right IJ dialysis catheter in proper position unchanged compared to 11/22/2024. The heart is enlarged. Compared to the previous examination of 11/22/2024 there is blunting of the left costophrenic angle and reticular interstitial lung opacities in the left lower lung. On the right there are multiple opacities overlying the right lung which presumably represent overlying artifact. There may be similar pulmonary parenchymal findings as on the left. The right costophrenic angle is not clearly demonstrated. XR/XR chest 1V portable [id number] IMPRESSION: Cardiomegaly, possible bilateral pleural effusions. There may be interstitial edema in both lower lungs. As clinically warranted re peat chest x-ray with removal of all of the overlying artifact.
--- OUTSIDE RECORDS SUMMARY | 2025-04-12 09:17 | XMS_ITS | Encounter Summary ---
Author Organization [facility] Address [address] [place] [address] Care Team Providers Care Nuclear Medicine Technologist Name Role Phone Osmani Contreras MD Primary Care Provider [phone] Encounter Details Date Type Department Care Team (Latest Contact Info) Description 09/16/2004 Outpatient Historical [facility] [address] [place] [address] Theodore Lugo MD [address] [place] [phone] REFLUX ESOPHAGITIS (Primary Dx) Social History Tobacco Use Types Packs/Day Years Used Date Smoking Tobacco: Never Assessed Sex and Gender Information Value Date Recorded Sex Assigned at Not on file 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 Sex 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 Gender Identity Not on file Sexual Orientation Not on file documented as of this encounter Plan of Treatment Not on file documented as of this encounter Visit Diagnoses Diagnosis Reflux esophagitis- Primary documented in this encounter Additional Health Concerns Infection Onset Date Last Indicated Resolved Time C Diff Comment:Resolved 09/08/2018, Infection Prevention 03/11/16 ([facility]) 03/25/2016 03/25/2016 8 7:46 AM VEHICLE UPHOLSTERER documented as of this encounter Care Teams Nuclear Medicine Technologist Relationship Specialty Start Date End Date Osmani Contreras MD [address] [place] [address] PCP - General Family Practice 12/04/15 documented as of this encounter
--- OUTSIDE RECORDS SUMMARY | 2025-04-12 09:17 | XMS_ITS | Encounter Summary ---
Author Organization [facility] Address [address] [place] [address] Care Team Providers Care Store Clerk Checker Name Role Phone Osmani Contreras MD Primary Care Provider [phone] Encounter Details Date Type Department Care Team (Latest Contact Info) Description 09/08/2004 Outpatient Historical [facility] [address] [place] [phone] Sarwat Naidu MD [address] [place] [phone] ABDOMINAL PAIN UNSPEC SITE (Primary Dx); HYPERTENSION NOS Social History Tobacco Use Types Packs/Day Years Used Date Smoking Tobacco: Never Assessed Sex and Gender Information Value Date Recorded Sex Assigned at Not on file 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 Gender Identity Not on file Sexual Orientation Not on file documented as of this encounter Plan of Treatment Not on file documented as of this encounter Visit Diagnoses Diagnosis Abdominal pain, unspecified site- Primary Unspecified essential hypertension documented in this encounter Additional Health Concerns Infection Onset Date Last Indicated Resolved Time C Diff Comment:Resolved 09/08/2018, Infection Prevention 03/11/16 ([facility]) 03/25/2016 03/25/2016 8 7:46 AM TRAVELING PHLEBOTOMIST documented as of this encounter Care Teams Store Clerk Checker Relationship Specialty Start Date End Date Osmani Contreras MD [address] [place] [address] PCP - General Family Practice 12/04/15 documented as of this encounter
--- OUTSIDE RECORDS SUMMARY | 2025-04-12 09:17 | XMS_ITS | Encounter Summary ---
Author Organization [facility] Address [address] [place] [address] Care Team Providers Care Spray Booth Operator Name Role Phone Osmani Contreras MD Primary Care Provider [phone] Encounter Details Date Type Department Care Team (Latest Contact Info) Description 09/16/2004 Outpatient [facility] [place] [address] [facility] [address] [place] [address] Theodore Lugo MD [address] [place] [phone] ABDOMINAL PAIN EPIGASTRIC (Primary Dx); HEARTBURN; REFLUX ESOPHAGITIS Social History Tobacco Use Types Packs/Day Years Used Date Smoking Tobacco: Never Assessed Sex and Gender Information Value Date Recorded Sex Assigned at Not on file Legal Sex 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 Gender Identity Not on file Sexual Orientation Not on file documented as of this encounter Plan of Treatment Not on file documented as of this encounter Visit Diagnoses Diagnosis Abdominal pain, epigastric- Primary Heartburn Reflux esophagitis documented in this encounter Additional Health Concerns Infection Onset Date Last Indicated Resolved Time C Diff Comment:Resolved 09/08/2018, Infection Prevention 03/11/16 ([facility]) 03/25/2016 03/25/2016 8 7:46 AM ANIMAL IMPERSONATOR documented as of this encounter Care Teams Spray Booth Operator Relationship Specialty Start Date End Date Osmain Contreras MD [address] [place] [address] PCP - General Family Practice 12/04/15 documented as of this encounter
--- OUTSIDE RECORDS SUMMARY | 2025-04-12 09:17 | XMS_ITS | Encounter Summary ---
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 Gender Identity Not on file Sexual Orientation Not on file documented as of this encounter Plan of Treatment Not on file documented as of this encounter Procedures Procedure Name Priority Date/Time Associated Diagnosis Comments WOUND CULTURE WITH GRAM STAIN Routine 01/04/2012 9:00 PM CDT SICK [ICD-9-CM] CBC WITH DIFFERENTIAL Stat 01/04/2012 9:00 PM CDT SICK [ICD-9-CM] LIPID PANEL Stat 01/04/2012 9:00 PM CDT SICK [ICD-9-CM] BASIC METABOLIC PANEL Stat 01/04/2012 9:00 PM CDT SICK [ICD-9-CM] documented in this encounter Results * (ABNORMAL) WOUND CULTURE WITH GRAM STAIN (01/04/2012 9:00 PM CDT) CULTURE 4+ (heavy growth) Streptococcus salivarius(A) 01/06/2012 6:27 PM CDT [facility] GRAM STAIN Few Gram positive cocci 01/06/2012 6:27 PM CDT [facility] GRAM STAIN No WBC's observed 012 6:27 PM CDT [facility] Wound drainage 01/04/2012 9: 00 PM CDT 01/04/2012 11:02 PM CDT Narrative [facility] - 01/06/2012 6:27 PM CDT Left great toe. Sensitivity not normally preformed. Chelsey Prince [facility] MICROBIOLOGY - GENERAL ORDE L[address] Final Result [facility] Ortho Neuro Management [facility] CLIA # [id number] [address] [place] [address] * (ABNORMAL) CBC WITH DIFFERENTIAL (01/04/2012 9:00 PM CDT) WBC 7.6 4.2 - 9.1 K/uL 01/04/2012 11:09 PM CDT [facility] RBC 5.33 4.63 - 6.08 M/uL 01/04/2012 11:09 PM [facility] Ortho Neuro Management [facility] HEMOGLOBIN 15.3 13.7 - 17.5 g/dL 01/04/2012 11:09 PM [facility] Ortho Neuro Management [facility] HEMATOCRIT 42.0 40.1 - 51.0 % 01/04/2012 11:09 PM T [facility] Ortho Neuro Management [facility] MCV 78.8(L) 79.0 - 92.2 fL 01/04/2012 11:09 PM CDT [facility] Ortho Neuro Management [facility] MCH 28.7 25.7 - 32.2 pg 01/04/2012 11:09 PM [facility] MCHC 36.4 32.3 - 36.5 g/dL 01/04/2012 11:09 PM [facility] Ortho Neuro Management [facility] RDW 12.8 11.0 - 14.5 % 01/04/2012 11:09 PM CDT [facility] Ortho Neuro Management [facility] RDW-STDEV 36.6 fL 01/04/2012 11:09 PM CDT [facility] [place] PLATELETS 265 130 - 400 K/uL 01/04/2012 11:09 PM CDT [facility] [place] MPV 10.6 10.0 - 14.8 fL 01/04/2012 11:09 PM CDT [facility] [place] NEUTROPHILS 49 34 - 68 % 01/04/2012 11:09 PM CDT [facility] [place] LYMPHOCYTES 40 22 - 53 % 01/04/2012 11:09 PM CDT [facility] [place] MONOCYTES 9 5 - 12 % 01/04/2012 11:09 PM CDT [facility] [place] EOSINOPHILS 2 1 - 7 % 01/04/2012 11:09 PM CDT [facility] [place] BASOPHILS 1 0 - 1 % 01/04/2012 11:09 PM CDT [facility] [place] NEUTROPHIL ABSOLUTE 3.72 1.78 - 5.38 K/uL 01/04/2012 11:09 PM CDT [facility] [place] LYMPHOCYTE ABSOLUTE 3.03 1.20 - 3.40 K/uL 01/04/2012 11:09 PM CDT [facility] [place] MONOCYTE ABSOLUTE 0.65 0.30 - 0.82 K/uL 01/04/2012 11:09 PM CDT [facility] [place] EOSINOPHIL ABSOLUTE 0.11 0.04 - 0.54 K/uL 01/04/2012 11:09 PM CDT [facility] [place] BASOPHILS ABSOLUTE 0.04 0.01 - 0.08 K/uL 01/04/2012 11:09 PM CDT [facility] [place] Blood specimen (specimen) 01/04/2012 9:00 PM CDT 01/04/2012 11:02 PM CDT Chelsey Prince STAFFING CONSULTANT HEMATOLOGY ORDERABLES Final Result [facility] [place] CLIA # [id number] [address] [place] [address] * (ABNORMAL) LIPID PANEL (01/04/2012 9:00 PM CDT) CHOLESTEROL 231(H) 130 - 200 mg/dL 01/04/2012 11:32 PM CDT [facility] TRIGLYCERIDE 108 30 - 200 mg/dL 01/04/2012 11:32 PM CDT [facility] HDL 51 35 - 80 mg/dL 01/04/2012 11:32 PM CDT [facility] LDL CALCULATED 158(H) 0 - 100 mg/dL 01/04/2012 11:32 PM T [facility] Blood specimen (specimen) 01/04/2012 9:00 PM CDT 01/04/2012 11:02 PM CDT Narrative [facility] - 01/04/2012 11:32 PM CDT TOTAL CHOLESTEROL mg/dL Desirable <200 Borderline high 200-239 High >=240 TRIGLYCERIDES mg/dL Normal <150 Borderline high 150-199 High 200-499 Very high >=500 HDL CHOLESTEROL mg/dL Low <40 Normal 40-60 Desirable >60 LDL CHOLESTEROL mg/dL Optimal <100 Low risk 100-129 Borderline high 130-159 High 160-189 Very high >=190 Based on AHA/NCEP Guidelines Chelsey Prince STAFFING CONSULTANT CHEMISTRY ORDERABLES Final Result [facility] CLIA # [id number] [address] [place] [address] * (ABNORMAL) BASIC METABOLIC PANEL (01/04/2012 9:00 PM CDT) SODIUM 134(L) 136 - 145 mmol/L 01/04/2012 11:32 PM T [facility] Ortho Neuro Management [facility] POTASSIUM 3.7 3.5 - 5.1 mmol/L 01/04/2012 11:32 PM CDT [facility] LABOR[facility] CHLORIDE 97(L) 98 - 107 mmol/L 01/04/2012 11:32 PM T [facility] Ortho Neuro Management [facility] CO2 29 21 - 32 mmol/L 01/04/2012 11:32 PM CDT [facility] CALCIUM 9.2 8.5 - 10.1 mg/dL 01/04/2012 11:32 PM T [facility] BUN 19(H) 7 - 18 mg/dL 01/04/2012 11:32 PM CDT [facility] CREATININE 0.90 0.60 - 1.30 mg/dL 01/04/2012 11:32 PM T [facility] GLUCOSE 234(H) 74 - 106 mg/dL 01/04/2012 11:32 PM T [facility] GFR 93 >=60 mL/min/1.7 3 sq meter 01/04/2012 11:32 PM T [facility] GFR, 113 >=60 mL/min/1.7 3 sq meter 01/04/2012 11:32 PM T [facility] Blood specimen (specimen) 01/04/2012 9:00 PM CDT 01/04/2012 11:02 PM CDT Narrative [facility] - 01/04/2012 11:32 PM CDT eGFR has not been validated for use in the elderly (> 70 years of age), women, patients with serious co-morbid conditions, or persons with extremes of body size or muscle mass and should also be interpreted with caution in patients with acute kidney failure, dialysis dependant patients, patients reporting exceptional dietary intake (e.g. vegetarian diet, high protein diets, creatine supplementation), and patients with severe liver disease. Chelsey Prince STAFFING CONSULTANT CHEMISTRY ORDERABLES Final Result Performing Organization Address City/State/[facility] Co de Phone Number [id number] [address] [place] [phone] documented in this encounter Visit Diagnoses Diagnosis Sick Other unknown and unspecified cause of morbidity or mortality documented in this encounter Additional Health Concerns Infection Onset Date Last Indicated Resolved Time C Diff Comment:Resolved 09/08/2018, Infection Prevention 03/11/16 ([facility]) 03/25/2016 03/25/2016 8 7:46 AM MANOMETER TECHNICIAN documented as of this encounter Care Teams Inorganic Chemistry Professor Relationship Specialty Start Date End Date Osmani Contreras MD [address] [place] [address] PCP - General Family Practice 12/04/15 documented as of this encounter
--- OUTSIDE RECORDS SUMMARY | 2025-04-12 09:17 | XMS_ITS | Encounter Summary ---
Author Organization [facility] Address [address] [place] [address] Care Team Providers Care Cinema Operator Name Role Phone Osmani Contreras MD Primary Care Provider [phone] Encounter Details Date Type Department Care Team (Latest Contact Info) Description 08/15/2004 Outpatient Historical [facility] [address] [place] [phone] Sarwat Nadiu MD [address] [place] [address] HYPERTENSION NOS (Primary Dx) Social History Tobacco Use Types Packs/Day Years Used Date Smoking Tobacco: Never Assessed Sex and Gender Information Value Date Recorded Sex Assigned at Not on file 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 Gender Identity Not on file Sexual Orientation Not on file documented as of this encounter Plan of Treatment Not on file documented as of this encounter Visit Diagnoses Diagnosis Unspecified essential hypertension- Primary documented in this encounter Additional Health Concerns Infection Onset Date Last Indicated Resolved Time C Diff Comment:Resolved 09/08/2018, Infection Prevention 03/11/16 ([facility]) 03/25/2016 03/25/2016 8 7:46 AM BOILER WELDER documented as of this encounter Care Teams Cinema Operator Relationship Specialty Start Date End Date Osmani Contreras MD [address] [place] [address] PCP - General Family Practice 12/04/15 documented as of this encounter
--- OUTSIDE RECORDS SUMMARY | 2025-04-12 09:17 | XMS_ITS | Encounter Summary ---
Author Organization [facility] Address [address] [place] [address] Care Team Providers Care Cake Cutter Machine Name Role Phone Osmani Contreras MD Primary Care Provider [phone] Encounter Details Date Type Department Care Team ([facility] st Contact Info) Description 07/25/2004 Outpatient Historical [facility] [address] [place] [phone] Sarwat Naidu MD [address] [place] [phone] Social History Tobacco Use Types Packs/Day Years Used Date Smoking Tobacco: Never Assessed Sex and Gender Information Value Date Recorded Sex Assigned at Not on file 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 Sex Male 3: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 SPECIAL 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 INVESTIGATOR Gender Identity Not on file Sexual Orientation Not on file documented as of this encounter Plan of Treatment Not on file documented as of this encounter Visit Diagnoses Not on filedocumented in this encounter Additional Health Concerns Infection Onset Date Last Indicated Resolved Time C Diff Comment:Resolved 09/08/2018, Infection Prevention 03/11/16 ([facility]) 03/25/2016 03/25/2016 8 7:46 AM SPECIAL CRIMES INVESTIGATOR documented as of this encounter Care Teams Cake Cutter Machine Relationship Specialty Start Date End Date Osmani Contreras MD [address] [place] [address] PCP - General Family Practice 12/04/15 documented as of this encounter
--- OUTSIDE RECORDS SUMMARY | 2025-04-12 09:17 | XMS_ITS | Encounter Summary ---
Author Organization [facility] Address [address] [place] [address] Care Team Providers Care Rush Seater Name Role Phone Osmani Contreras MD Primary Care Provider [phone] Encounter Details Date Type Department Care Team (Latest Contact Info) Description 07/25/2004 Outpatient Historical [facility] [address] [place] [phone] Sarwat Naidu MD [address] [place] [phone] HYPERTENSION NOS (Primary Dx) Social History Tobacco Use Types Packs/Day Years Used Date Smoking Tobacco: Never Assessed Sex and Gender Information Value Date Recorded Sex Assigned at Not on file Legal Sex Male 3:06 AM PATIENT ACCOUNT LIAISON Gender Identity Not on file Sexual Orientation Not on file documented as of this encounter Plan of Treatment Not on file documented as of this encounter Visit Diagnoses Diagnosis Unspecified essential hypertension- Primary documented in this encounter Additional Health Concerns Infection Onset Date Last Indicated Resolved Time C Diff Comment:Resolved 09/08/2018, Infection Prevention 03/11/16 ([facility]) 03/25/2016 03/25/2016 8 7:46 AM PATIENT ACCOUNT LIAISON documented as of this encounter Care Teams Rush Seater Relationship Specialty Start Date End Date Osmani Contreras MD [address] [place] [address] PCP - General Family Practice 12/04/15 documented as of this encounter
--- OUTSIDE RECORDS SUMMARY | 2025-04-12 09:17 | XMS_ITS | Encounter Summary ---
Author Organization [facility] Address [address] [place] [address] Care Team Providers Care Procedure Tech Name Role Phone Osmani Contreras MD Primary Care Provider [phone] Encounter Details Date Type Department Care Team (Late st Contact Info) Description 01/11/2012 Ancillary Orders [facility] Laboratory Services [place] [address] [place] [address] DM (diabetes mellitus) ([facility]) Social History Tobacco Use Types Packs/Day Years Used Date Smoking Tobacco: Never Assessed Sex and Gender Information Value Date Recorded Sex Assigned at Not on file Legal Sex Male 3:06 AM KNOTTER HAND Gender Identity Not on file Sexual Orientation Not on file documented as of this encounter Plan of Treatment Not on file documented as of this encounter Procedures Procedure Name Priority Date/Time Associated Diagnosis Comments HEMOGLOBIN A1C Stat 01/11/2012 10:05 PM CDT DM (DIABETES MELLITUS) [ICD-9-CM] documented in this encounter Results * (ABNORMAL) HEMOGLOBIN A1C (01/11/2012 10:05 PM CDT) HEMOGLOBIN A1C 14.0(H) 4.5 - 6.2 % 01/12/2012 1:01 AM CDT [facility] SERVICES [facility] EST. AVG GLUCOSE, A1C 355 mg/dL 01/12/2012 1:01 AM CDT [facility] Blood specimen (specimen) 01/11/2012 10:05 PM CDT 01/11/2012 11:13 PM CDT us Osmani Contreras MD CHEMISTRY ORDERABLES Final Resu lt [facility] [place] CLIA # [id number] [address] [facility] [address] [place] [address] documented in this encounter Visit Diagnoses Diagnosis DM (diabetes mellitus) ([facility]) Type II or unspecified type diabetes mellitus without mention of complication, not stated as uncontrolled documented in this encounter Additional Health Concerns Infection Onset Date Last Indicated Resolved Time C Diff Comment:Resolved 09/08/2018, Infection Prevention 03/11/16 ([facility]) 03/25/2016 03/25/2016 8 7:46 AM KNOTTER HAND documented as of this encounter Care Teams Procedure Tech Relationship Specialty Start Date End Date Osmani Contreras MD [address] [place] [address] PCP - General Family Practice 12/04/15 documented as of this encounter
--- OUTSIDE RECORDS SUMMARY | 2025-04-12 09:17 | XMS_ITS | Encounter Summary ---
Author Organization [facility] Address [address] [place] [address] Care Team Providers Care Plant Wrapper Name Role Phone Osmani Contreras MD Primary Care Provider Encounter Details Date Type Department Care Team (Late st Contact Info) Description 08/20/1999 Outpatient Historical [facility] Bharathi Walker MD [address] [phone] Hernia of unspecified site of abdominal cavity without mention of obstruction or gangrene (Primary Dx) Social History Tobacco Use Types Packs/Day Years Used Date Smoking Tobacco: Never Assessed Sex and Gender Information Value Date Recorded Sex Assigned at Not on file 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 Sex 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 Gender Identity Not on file Sexual Orientation Not on file documented as of this encounter Plan of Treatment Not on file documented as of this encounter Visit Diagnoses Diagnosis Hernia of unspecified site of abdominal cavity without mention of obstruction or gangrene- Primary documented in this encounter Additional Health Concerns Infection Onset Date Last Indicated Resolved Time C Diff Comment:Resolved 09/08/2018, Infection Prevention 03/11/16 ([facility]) 03/25/2016 03/25/2016 8 7:46 AM ASSISTANT 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 documented as of this encounter Care Teams Plant Wrapper Relationship Specialty Start Date End Date Osmani Contreras MD [address] [place] [address] PCP - General Family Practice 12/04/15 documented as of this encounter
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
--- OUTSIDE RECORDS SUMMARY | 2025-04-12 09:17 | XMS_ITS | Encounter Summary ---
[facility] Organization [facility] Address [address] [place] [address] Care Team Providers Care Pharmaceutical Process Engineer Name Role Phone Osmani Contreras MD Primary Care Provider [phone] Encounter Details Date Type Department Care Team ([facility] Contact Info) Description 08/04/1999 Outpatient Historical [facility] Bharathi Walker MD [address] [phone] Abdominal pain, right upper quadrant (Primary Dx); Abdominal pain, epigastric Social History Tobacco Use Types Packs/Day Years Used Date Smoking Tobacco: Never Assessed Sex and Gender Information Value Date Recorded Sex Assigned at Not on file 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) 03/25/2016 03/25/2016 8 7:46 AM ENTRY TECH documented as of this encounter Care Teams Pharmaceutical Process Engineer Relationship Specialty Start Date End Date Osmani Contreras MD [address] [place] [address] PCP - General Family Practice 12/04/15 documented as of this encounter
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
--- OUTSIDE RECORDS SUMMARY | 2025-04-12 09:17 | XMS_ITS | Encounter Summary ---
Author Organization [facility] Address [address] [place] [address] Care Team Providers Care Certified Nurses' Aide Name Role Phone Osmani Contreras MD Primary Care Provider [phone] Encounter Details Date Type Department Care Team (Late st Contact Info) Description 07/08/2004 Outpatient Historical [facility] [address] [place] [phone] Ger Fabian MD [address] [place] [address] Social History Tobacco Use Types Packs/Day Years Used Date Smoking Tobacco: Never Assessed Sex and Gender Information Value Date Recorded Sex Assigned at Not on file 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 Gender Identity Not on file Sexual Orientation Not on file documented as of this encounter Plan of Treatment Not on file documented as of this encounter Visit Diagnoses Not on filedocumented in this encounter Additional Health Concerns Infection Onset Date Last Indicated Resolved Time C Diff Comment:Resolved 09/08/2018, Infection Prevention 03/11/16 ([facility]) 03/25/2016 03/25/2016 8 7:46 AM PATIENT FLOW COORDINATOR documented as of this encounter Care Teams Certified Nurses' Aide Relationship Specialty Start Date End Date Osmani Contreras MD [address] [place] [address] PCP - General Family Practice 12/04/15 documented as of this encounter
--- OUTSIDE RECORDS SUMMARY | 2025-04-12 09:17 | XMS_ITS | Encounter Summary ---
Author Organization [facility] Address [address] [facility] [address] [address] Care Team Providers Care General Doc Name Role Phone Osmani Contreras MD Primary Care Provider [phone] Encounter Details Date Type Department Care Team (Latest Contact Info) Description 07/24/2004 Outpatient Historical [facility] [address] [place] [phone] Sarwat Naidu MD [address] [place] [phone] HYPERTENSION NOS (Primary Dx) Social History Tobacco Use Types Packs/Day Years Used Date Smoking Tobacco: Never Assessed Sex and Gender Information Value Date Recorded Sex Assigned at Not on file Legal Sex Male 3:06 AM SAMPLE MOUNTER Gender Identity Not on file Sexual Orientation Not on file documented as of this encounter Plan of Treatment Not on file documented as of this encounter Visit Diagnoses Diagnosis Unspecified essential hypertension- Primary documented in this encounter Additional Health Concerns Infection Onset Date Last Indicated Resolved Time C Diff Comment:Resolved 09/08/2018, Infection Prevention 03/11/16 ([facility]) 03/25/2016 03/25/2016 8 7:46 AM SAMPLE MOUNTER documented as of this encounter Care Teams General Doc Relationship Specialty Start Date End Date Osmani Contreras MD [address] [place] [address] PCP - General Family Practice 12/04/15 documented as of this encounter
--- OUTSIDE RECORDS SUMMARY | 2025-04-12 09:17 | XMS_ITS | Encounter Summary ---
Author Organization [facility] Address [address] [place] [address] Care Team Providers Care Hematology Supervisor Name Role Phone Osmani Contreras MD Primary Care Provider [phone] Reason for Visit * Reason Comments Medication Refill Encounter Details Date Type Department Care Team (Late st Contact Info) Description 05/14/2016 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 Gender Identity Not on file Sexual Orientation Not on file Occupation Industry Job Start Date Job End Date Not on file Not on file Not on file Not on file documented as of this encounter Plan of Treatment Not on file documented as of this encounter Visit Diagnoses Not on filedocumented in this encounter Additional Health Concerns Infection Onset Date Last Indicated Resolved Time C Diff Comment:Resolved 09/08/2018, Infection Prevention 03/11/16 ([facility]) 03/25/2016 03/25/2016 8 7:46 AM 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
--- NOTE | 2025-04-12 09:29 | W.ED.CHESTPA ---
HPI - Chest Pain General: Chief Complaint: Chest Pain Stated Complaint: cp, sent from [facility] Time Seen by Provider: 04/12/25 09:13 History of Present Illness: 54-year-old male presents to the emergency room with complaint of chest pain. Patient has known history of coronary disease in July of last year he had stents placed he still is taking aspirin and clopidogrel beginning last night around 6 PM he had chest pain both at rest and with exertion. With exertion he got diaphoretic and dyspneic. It improved with rest patient has previously had a stroke as well. He also has end-stage renal disease and is on dialysis. Residential Support Specialist report reviewed was done July 14, [address] Ennis. Associated symptoms: Deny abdominal pain, dyspnea or fever(s) Related Data Home Medications ?Medication ?Instructions ?Recorded ?Confirmed atorvastatin 40 mg tablet 40 mg PO DAILY 11/07/20 04/12/25 tamsulosin 0.4 mg capsule (Flomax) 0.4 mg PO DAILY 11/07/20 04/12/25 aspirin 81 mg tablet,delayed 81 mg PO DAILY 02/03/21 04/12/25 release bumetanide 0.5 mg tablet 0.5 mg PO DAILY 09/20/24 04/12/25 famotidine 20 mg tablet 20 mg PO DAILY 09/20/24 04/12/25 clonidine 0.1 mg/24 hr weekly 1 patch transdermal .Weekly 11/16/24 04/12/25 transdermal patch metoprolol tartrate 100 mg tablet 100 mg PO BID 12/25/24 04/12/25 nifedipine 60 mg tablet,extended 60 mg PO DAILY 12/25/24 04/12/25 release 24 hr terazosin 5 mg capsule 5 mg PO DAILY 12/25/24 04/12/25 torsemide 10 mg tablet 10 mg PO .NONDIALYSISDAYS 12/25/24 04/12/25 megestrol 400 mg/10 mL (40 mg/mL) 10 mg PO DAILY 02/20/25 04/12/25 oral suspension hydralazine 100 mg tablet 100 mg PO BID 04/12/25 04/12/25 Previous Rx's ?Medication ?Instructions ?Recorded losartan 100 mg tablet 100 mg PO DAILY 30 days #30 tabs 10/19/24 buspirone 10 mg tablet 10 mg PO BID #60 tabs 11/16/24 duloxetine 60 mg capsule,delayed 120 mg (2 x 60 mg) PO DAILY #60 11/16/24 release caps sertraline 100 mg tablet (Zoloft) 200 mg (2 x 100 mg) PO DAILY #60 11/16/24 tabs trazodone 100 mg tablet 400 mg (4 x 100 mg) PO .HS PRN 11/16/24 insomnia #120 tabs Hinged Knee Brace #1 ea 01/02/25 clopidogrel 75 mg tablet (Plavix) 75 mg PO DAILY 90 days #30 tabs 03/06/25 bupropion HCl 300 mg 24 hr tablet, 300 mg PO QAM #30 tabs 03/20/25 extended release (Wellbutrin XL) pantoprazole 40 mg tablet,delayed 40 mg PO BID POST GASTRIC SLEEVE 04/05/25 release (Protonix) 30 days #60 tabs Allergies Allergy/AdvReac Type Severity Reaction Status Date / Time diphenhydramine (From Allergy Unknown Unknown Verified 04/12/25 08:52 Benadryl) ertapenem (From Invanz) Allergy Unknown Unknown Verified 04/12/25 08:52 Review of Systems Const: Denies: fever(s) or chills Card: Denies: chest pain Resp: Denies: dyspnea GI: Denies: abdominal pain : Denies: dysuria, urinary frequency or urinary urgency Musc: Denies: neck pain or back pain Skin/Breast: Denies: rash PFSH ED PFSH: Medical History Peripheral neuropathy Generalized anxiety disorder Major depressive disorder, recurrent severe without psychotic features Atherosclerotic heart disease comanche coronary artery w/angina pectoris Diabetes mellitus Hypertension Psychiatric care GERD (gastroesophageal reflux disease) Chronic kidney disease Hypertension Hyperlipidemia Diabetes Morbid obesity Bereavement Chronic major depressive disorder Colon polyp Encounter for screening colonoscopy Surgical History History of colonoscopy with polypectomy History of tonsillectomy History of foot surgery History of shoulder surgery Family History Denies family history of Anesthesia complication Bleeding disorder Social History Smoking and tobacco/nicotine status: former use of tobacco/nicotine Quit status (tobacco/nicotine): has tried quititng Number of times tried to quit tobacco: 3 Second hand smoke exposure: Yes (Occ.) Alcohol intake: current Alcohol intake frequency: holidays/special occasions only Alcohol type: beer Substance/Drug Use: current Substance/Drug use frequency: few times a week Other substance/drug use details: A few times a week. Physical Exam Const: COMMON NORMALS: no acute distress GENERAL APPEARANCE: cooperative and comfortable ORIENTATION/CONSCIOUSNESS: Yes awake, Yes oriented to person, Yes oriented to place and Yes oriented to time HENMT: COMMON NORMALS: normocephalic, atraumatic and hearing grossly normal bilaterally HEAD & SCALP: normocephalic and atraumatic Resp: COMMON NORMALS: normal respiratory effort, No retractions, No use of accessory muscles and clear to auscultation bilaterally AUSCULTATION: clear to auscultation bilaterally Cardio: COMMON NORMALS: regular rate, regular rhythm and No murmurs present (Cardio) RATE: regular rate RHYTHM: regular rhythm GI: COMMON NORMALS: Soft to palpation and No hepatosplenomegaly present AUSCULTATION: Yes normoactive bowel sounds PALPATION: Yes Soft to palpation, No Tenderness to palpation present (GI), No Guarding due to palpation present (GI) and Yes No hepatosplenomegaly present Extremity: COMMON NORMALS: normal to inspection, capillary refill normal, no clubbing, cyanosis or edema, no calf tenderness and no pedal edema Neuro: SENSORIUM/ORIENTATION: Yes oriented to person, Yes oriented to place and Yes oriented to time Skin: COMMON NORMALS: no rashes or lesions noted GENERAL SKIN EXAM: no rashes or lesions noted Course Vital Signs: Vital signs: Vital Signs Temperature 98.7 F 04/12/25 09:19 Pulse Rate 80 04/12/25 13:05 Respiratory Rate 20 H 04/12/25 13:05 Blood Pressure 141/79 04/12/25 13:05 Pulse Oximetry 93 04/12/25 13:05 Oxygen Delivery Me thod Room Air 04/12/25 12:52 MDM - Chest Pain Medical Decision Making Initial troponin elevated. Patient has known coronary disease previously stent within the last year. COVID back to review advised to the patient that his chest pain had increased he was reporting as a pressure of the scale of 5 out of 10. His first troponin is elevated similar to what was seen previously time he went to the Residential Support Specialist his baseline in the past has been more in the 70s range is [address] changes on EKG. Discussed with the hospitalist and cardiology will admit initiated heparin and nitro. Patient is hypertensive he does appear to be mildly fluid overloaded some of this may be heart strain from heart failure as well discussed with cardiology they will see the patient as well. Medical Records Diagnostic Cath Status: Elective Diagnostic Findings * The left main is a medium caliber vessel with no significant stenotic lesions. * Left anterior descending artery is a medium caliber vessel which appears to wraparound the LV apex. At the takeoff of the second septal truck sales manager, there was a segmental stenosis of around 70%. The rest of the artery was found to have mild diffuse intimal irregularities. The first diagonal branch is a relative small caliber vessel which was found to have around 50% proximal tubular narrowing. * The left circumflex artery is a medium caliber nondominant vessel which was found to have mild diffuse intimal irregularities. The first obtuse marginal branch was found to have around 40 to 50% diffuse tubular narrowing proximally. No other significant stenotic lesions were noted. * The right coronary artery is a medium to large caliber dominant vessel which appears to be totally occluded proximally after giving off the sinus akash branch. Grade 3 [id number] collaterals were noted during the left coronary injection. PCI Indication: NSTE - ACS Interventional Findings * Successful PCI to mid LAD. Lesion was prepared with 2.5 x 12 mm AB TREK balloon, followed by deployment of MDT FEDERICO 3.0 x 18 mm stent posted at high SANCHEZ of 12 mm. Stent was then post-dilated with serial dilatation of NC MDT EUPHORA 3.5 x 12 at 14 SANCHEZ in its entire length to ensure proper approximation. Excellent angiographic result with NATALIE-3 flow was achieved. Conclusions 1. 54-year-old white male with a history of hypertension, diabetes, dyslipidemia, end-stage renal disease, on hemodialysis, started having new onset onset of chest pain. He had an abnormal Myocardial perfusion imaging revealing myocardial scarring with ischemia in the distribution of the right coronary artery. For further evaluation of his coronary status, cardiac catheterization was recommended. Patient underwent left heart catheterization with a left and right coronary angiogram and LV angiogram today. The findings are as follows. 2. Short left main with no significant lesions. Left anterior descending artery was found to have a 70% segmental stenosis at the takeoff of the second septal truck sales manager. 40 to 50% tubular narrowing in the proximal segments of the first diagonal and first obtuse marginal branch. Total occlusion of the right coronary artery proximally, after the takeoff of the sinus akash branch. Grade 3 [id number] collaterals. LVEDP of 28 mmHg. LV ejection fraction of 50%.. 3. I reviewed and discussed the cardiac catheterization data with Dr. Flores. It was thought to be appropriate to consider PCI of the mid LAD lesion. Dr. Flores took over further management of this patient at this point. 4. Successful PCI to mid LAD using drug-eluting stent as described above. Lab Data 04/12/25 09:37 04/12/25 09:37 Radiology Impressions Chest X-Ray 04/12/25 09:13 IMPRESSION: Cardiomegaly, possible bilateral pleural effusions. There may be interstitial edema in both lower lungs. As clinically warranted repeat chest x-ray with removal of all of the overlying artifact. Laboratory Results WBC 4.25 10^3/uL (3.29-11.43) 04/12/25 09:37 RBC 3.31 10^6/uL (3.85-5.65) L 04/12/25 09:37 Hgb 8.80 g/dL (11.27-16.99) L 04/12/25 09:37 Hct 27.9 % (37-53) L 04/12/25 09:37 MCV 84.3 fl (82-101) 04/12/25 09:37 MCH 26.6 pg (27-33) L 04/12/25 09:37 MCHC 31.5 g/dL (30-55) 04/12/25 09:37 RDW 14.5 % (12.1-15.1) 04/12/25 09:37 Plt Count 139 10^3/cmm (157-399) L 04/12/25 09:37 MPV 10.2 fL (7.4-10.4) 04/12/25 09:37 Neut % (Auto) 72.8 % 04/12/25 09:37 Lymph % (Auto) 17.4 % 04/12/25 09:37 Power % (Auto) 6.8 % 04/12/25 09:37 Eos % (Auto) 1.9 % 04/12/25 09:37 Baso % (Auto) 0.9 % 04/12/25 09:37 Neut # (Auto) 3.09 10^3/uL (1.8-7.7) 04/12/25 09:37 Lymph # (Auto) 0.7 10^3/uL (0.8-4.8) L 04/12/25 09:37 Power # (Auto) 0.3 10^3/uL (0.2-0.9) 04/12/25 09:37 Eos # (Auto) 0.1 10^3/uL (0.0-0.8) 04/12/25 09:37 Baso # (Auto) 0.0 10^3/uL (0.0-0.1) 04/12/25 09:37 Nucleated RBC % (auto) 0 % 04/12/25 09:37 Nucleated RBCs # 0.0 /100WBC 04/12/25 09:37 Sodium 139 mmol/L (136-145) 04/12/25 09:37 Potassium 3.7 mmol/L (3.5-5.1) 04/12/25 09:37 Chloride 98 mmol/L (98-107) 04/12/25 09:37 Carbon Dioxide 29 mmol/L (22-29) 04/12/25 09:37 Anion Gap 15.7 (5-19) 04/12/25 09:37 BUN 15 mg/dL (6-20) 04/12/25 09:37 Creatinine 3.9 mg/dL (0.7-1.2) H 04/12/25 09:37 GFR Calculation 16.2 mL/min (90-130) L 04/12/25 09:37 Glucose 103 mg/dL (65-115) 04/12/25 09:37 Calculated Osmolality 289 mOsm/kg (285-295) 04/12/25 09:37 Calcium 8.9 mg/dL (8.5-10.5) 04/12/25 09:37 Total Bilirubin 0.4 mg/dL (0.15-1.2) 04/12/25 09:37 AST 10 U/L (0-40) 04/12/25 09:37 ALT < 5 U/L (0-41) 04/12/25 09:37 Alkaline Phosphatase 65 U/L (40-130) 04/12/25 09:37 Troponin T Baseline 124 ng/L (0-15) H* 04/12/25 09:37 Total Protein 5.9 g/dL (6.6-8.7) L 04/12/25 09:37 Albumin 3.6 g/dL (3.5-5.2) 04/12/25 09:37 Globulin 2.3 g/dL (1.3-4.6) 04/12/25 09:37 All radiology interpretation(s) finalized by discharge EKG Data EKG 1: Interpretation: EKG 7 2025-06-26 sinus rhythm rate of 72 [place] interval 165 QTc 399. Voltage criteria for LVH. Q waves in V1 and 2. No acute ST elevations or depression. Discharge Plan Discharge Patient Disposition: Admitted As Inpatient Admit Provider: Anthony Talamantes Clinical Impression: Unstable angina pectoris, S/P laparoscopic sleeve gastrectomy, Type 2 diabetes mellitus, Benign essential HTN, ESRD (end stage renal disease) on dialysis, Acute CHF Condition: Stable Coding Level of Care Code ED Crepe Maker for Betito Jung
[2025-04-12 09:45] LABS: Hematocrit 27.9 % (37-53); Hemoglobin 8.80 g/dL (11.27-16.99); Mean Corpuscular HGB Conc 31.5 g/dL (30-55); Mean Corpuscular Hemoglobin 26.6 pg (27-33); Mean Corpuscular Volume 84.3 fl (82-101); Nucleated Red Blood Cells % 0 %; Platelet Count 139 10^3/cmm (157-399); Red Blood Count 3.31 10^6/uL (3.85-5.65); White Blood Count 4.25 10^3/uL (3.29-11.43)
[2025-04-12 10:15] LABS: Alanine Aminotransferase < 5 U/L (0-41); Albumin Level 3.6 g/dL (3.5-5.2); Alkaline Phosphatase 65 U/L (40-130); Anion Gap 15.7 (5-19); Aspartate Amino Transferase 10 U/L (0-40); Blood Urea Nitrogen 15 mg/dL (6-20); Calcium 8.9 mg/dL (8.5-10.5); Carbon Dioxide 29 mmol/L (22-29); Chloride 98 mmol/L (98-107); Creatinine Clr Calc Pharmacy 28.2866; Globulin 2.3 g/dL (1.3-4.6); Glucose 103 mg/dL (65-115); Osmolality Calculated 289 mOsm/kg (285-295); Potassium 3.7 mmol/L (3.5-5.1); Sodium 139 mmol/L (136-145); Total Protein 5.9 g/dL (6.6-8.7)
[2025-04-12 10:17] LABS: Troponin(5th) Baseline 124 ng/L (0-15)
--- NOTE | 2025-04-12 10:37 | PC.NURSE ---
per micromedex and pharmacist arlene, heparin and nitro drip are compatible at y-site and administered by this nurse y-sited.
[2025-04-12] MEDS: morphine 4 mg/mL SDV 1 mL 2 MG IVP (10:51)
[2025-04-12] MEDS: nitroglycerin drip 50 MG/250 ML PREMIX IV (10:58)
[2025-04-12] MEDS: heparin drip 25,000 UNIT/500 ML PREMIX 29 UNIT IV (11:02)
[2025-04-12] MEDS: heparin 5,000 unit/mL INJ 1 mL IVP (11:05)
--- NOTE | 2025-04-12 11:13 | ECG_ITS ---
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
--- NOTE | 2025-04-12 11:26 | P.CONIM_ITS ---
<Statement entered by Shantel Flores MD - 04/12/25 12:51> Patient was evaluated and cared for in conjunction with an advanced practice practitioner. I personally examined the patient and reviewed the chart and all pertinent data including imaging, telemetry, and laboratory results. I discussed the patient in detail with the advanced practice practitioner. Please see their note for complete H&P testing result and agreed upon plan of care for the patient. 54-year-old male past medical history as defined below presented with shortness of breath PND orthopnea and chest pressure. There is no dynamic EKG changes however troponin is more than 110, his baseline troponin fifth generation stays around above 70 due to reduced clearance of the creatinine. He is also known to be hypertensive. He is on dialysis at home. He denies chest pain per se similar to the event when he had his stent. GENERAL: Patient is alert, awake and oriented x3. HEART: Regular S1 and S2. No murmur, rub or gallop. LUNGS: Clear to auscultate bilaterally. CENTRAL NERVOUS SYSTEM: Grossly nonfocal. EXTREMITIES: Lower extremities with out edema bilaterally. Assessment and plan Non-ST elevation VA: Most likely type II Hypertensive urgency Acute decompensated on chronic systolic heart failure Coronary artery disease with history of chronically occluded RCA with [id number] collaterals history of prior stent to LAD and nonobstructive coronary disease At this point patient appeared to me be more volume overloaded rather than true non-ST elevation VA. Troponin leak is due to demand ischemia. Agree with IV heparin for now Start patient on IV nitroglycerin to bring blood pressure down with the goal of less than 140/80 mmHg Continue aspirin statin beta-twyla and clopidogrel Start patient on IV Lasix 80 mg twice daily I am not sure how much urine he is making but he says he does make some Will request nephrology on board for possible dialysis and removing more fluid as it appeared to me patient has more CHF exacerbation than the true coronary ischemia. Echocardiogram will be obtained to assess LV function. Further plan will advise as per progress of the patient Providers/Reason For Consult 2 Consulting Physician/Specialty*: Dr Tameka Flores, cardiology Reason for Consult*: orthopnea, chest pain, elevated troponin Requesting Physician: Dr Almaraz Attending Physician: Anthony Talamantes Primary Care Provider: ALONDRA Caldera History of Present Illness History of Present Illness Abimael Cochran is a 54 year old male with past medical history of CAD (PCI to the mid LAD in July 2024, noted [employer] of the RCA with grade 3 [id number] collaterals, moderate stenosis of the diagonal and first obtuse marginal), CKD on HD, anemia of chronic disease, hypertension, hyperlipidemia, diabetes. He came to the cardiology clinic this morning for a visit, was sent to the emergency room for further evaluation. He had been having worsening shortness of breath, orthopnea and chest tightness. He notes the last 2 dialysis sessions has not required any fluid removal only filtration. Troponins are chronically elevated, usually in the 70-80 range, baseline troponin today 124. He had a normal LVEF 55 to 60% in June of last year. Chest x-ray in the emergency room reveals bilateral pleural effusions. Hemoglobin 8.8 and stable. Currently he endorses chest tightness, rated 4-5 out of 10. This does not feel like chest pain experienced with his previous stent to the LAD. EKG shows sinus rhythm, Q waves in leads V1 and V2 unchanged from EKG in November of this year. No T wave inversion or ST elevation. Review of Systems 2 Const: Reports: change in weight (Weight loss); Denies: fever(s), chills, fatigue or diaphoresis Eyes: Denies: change in vision ENMT: Denies: epistaxis Card: Reports: chest pain, dyspnea on exertion and orthopnea; Denies: palpitations, irregular heart rhythm, edema, syncope, pre-syncope or leg pain with exertion Resp: Denies: dyspnea, productive cough or wheezing GI: Denies: nausea, vomiting, hematemesis, hematochezia or melena : Denies: hematuria Musc: Denies: extremity swelling Liban/Lymph: Denies: easy bruising or easy bleeding Medications/Allergies Home Medications ?Medication ?Instructions ?Recorded ?Confirmed ?Last Taken ?Type atorvastatin 40 mg tablet 40 mg PO DAILY 11/07/20 07/01/0207/04/24 09:00 History insulin aspart U-100 100 unit/mL 100 unit SUBCUT DAILY PRN blood 11/07/20 04/12/25 07/09/21 History (3 mL) subcutaneous pen (Novolog sugar FlexPen U-100 Insulin aspart) insulin glargine U-300 conc 300 60 unit SUBCUT BID 04/12/25 07/04/24 09:00 History unit/mL (3 mL) subcutaneous pen (Toujeo Max U-300 SoloStar) tamsulosin 0.4 mg capsule (Flomax) 0.4 mg PO DAILY 04/12/25 07/04/24 History aspirin 81 mg tablet,delayed 81 mg PO DAILY 02/03/21 0 04/12/25 07/03/24 History release hydralazine 50 mg tablet 50 mg PO TID #270 tabs 08/1604/12/25 Unknown Rx bumetanide 0.5 mg tablet 0.5 mg PO DAILY 09/20/2401/02 Unknown History carvedilol 12.5 mg tablet 12.5 mg PO BID 09/20/2401/02 Unknown History famotidine 20 mg tablet 20 mg PO DAILY 09/20/2401/02 Unknown History testosterone cypionate 200 mg/mL 200 mg SUBCUT Q7D 09/0304/12/25 Unknown History intramuscular oil losartan 100 mg tablet 100 mg PO DAILY 30 days #30 tabs 10/19/24 04/12/25 Unknown Rx brexpiprazole 2 mg tablet (Rexulti) 2 mg PO DAILY #30 tabs 11/16/24 04/12/25 Unknown Rx buspirone 10 mg tablet 10 mg PO BID #60 tabs 04/12/25 Unknown Rx clonidine 0.1 mg/24 hr weekly 1 patch transdermal .Mónica king 11/16/24 04/12/25 Unknown History transdermal patch duloxetine 60 mg capsule,delayed 120 mg (2 x 60 mg) PO DAILY #60 11/16/24 04/12/25 Unknown Rx release caps hydroxyzine HCl 50 mg tablet 50 mg PO QID PRN anxiety #120 tabs 11/16/24 04/12/25 Unknown Rx sertraline 100 mg tablet (Zoloft) 200 mg (2 x 100 mg) PO DAILY #60 11/16/24 04/12/25 Unknown Rx tabs trazodone 100 mg tablet 400 mg (4 x 100 mg) PO .HS P RN 11/16/24 04/12/25 Unknown Rx insomnia #120 tabs metoprolol tartrate 100 mg tablet 100 mg PO BID 04/12/25 Unknown History nifedipine 60 mg tablet,extended 60 mg PO DAILY 04/12/25 Unknown History release 24 hr sevelamer carbonate 800 mg tablet 800 mg PO TID 04/12/25 Unknown History terazosin 5 mg capsule 5 mg PO DAILY 12/25/2404/12 Unknown History torsemide 10 mg tablet 10 mg PO .NONDIALYSISDAYS 04/12/25 Unknown History Hinged Knee Brace #1 ea 01/02/25 04/12/25 Unkn own Rx megestrol 400 mg/10 mL (40 mg/mL) 10 mg PO DAILY 02/2004/12/25 Unknown History oral suspension clopidogrel 75 mg tablet (Plavix) 75 mg PO DAILY 90 da ys #30 tabs 03/06/25 04/12/25 Unknown Rx bupropion HCl 300 mg 24 hr tablet, 300 mg PO QAM #30 t abs 03/20/25 04/12/25 Unknown Rx extended release (Wellbutrin XL) mupirocin 2 % topical ointment 1 applic topical TID 7 days #15 03/21/25 04/12/25 Unknown Rx (Centany) grams pantoprazole 40 mg tablet,delayed 40 mg PO BID POST GA STRIC SLEEVE 04/05/25 04/12/25 Unknown Rx release (Protonix) 30 days #60 tabs Allergies Allergy/AdvReac Type Severity Reaction Status Date / Time diphenhydramine (From Allergy Unknown Unknown Verified 04/12/25 08:52 Benadryl) ertapenem (From Invanz) Allergy Unknown Unknown Verified 04/12/25 08:52 Current Medications Generic Name Dose Route Start Last Admin Trade Name Freq PRN Reason Stop Dose Admin Heparin Sodium/Sodium Chloride 25,000 unit in 500 mls @ 0 mls/hr 04/12/25 10:30 04/12/25 11:02 Heparin Drip IV 14.4 unit/kg/hr CONT ISABEL 29 mls/hr Protocol Administration Per Protocol Nitroglycerin/Dextrose 50 mg in 250 mls @ 0 mls/hr 04/12/25 10:30 04/12/25 10:58 Nitroglycerin Drip IV 10 mcg/min .Q0M ISABEL 3 mls/hr Protocol Administration Per Protocol PFSH Acute 2 PFSH: Medical History Peripheral neuropathy Generalized anxiety disorder Major depressive disorder, recurrent severe without psychotic features Atherosclerotic heart disease [place] coronary artery w/angina pectoris Diabetes mellitus Hypertension Psychiatric care GERD (gastroesophageal reflux disease) Chronic kidney disease Hypertension Hyperlipidemia Diabetes Morbid obesity Bereavement Chronic major depressive disorder Colon polyp Encounter for screening colonoscopy Surgical History History of colonoscopy with polypectomy History of tonsillectomy History of foot surgery History of shoulder surgery Family History Denies family history of Anesthesia complication Bleeding disorder Social History Smoking and tobacco/nicotine status: former use of tobacco/nicotine Quit status (tobacco/nicotine): has tried quititng Number of times tried to quit tobacco: 3 Second hand smoke exposure: Yes (Occ.) Alcohol intake: current Alcohol intake frequency: holidays/special occasions only Alcohol type: beer Substance/Drug Use: current Substance/Drug use frequency: few times a week Other substance/drug use details: A few times a week. Vitals/I&O/Wt Last Vital Signs Temp 98.7 F 04/12/25 09:19 Pulse 74 04/12/25 11:25 Resp 16 04/12/25 11:25 BP 184/95 04/12/25 11:25 Pulse Ox 94 04/12/25 11:25 O2 Del Method Room Air 04/12/25 11:25 Weight last 48 hrs Weight 222 lb Physical Exam 2 Const: COMMON NORMALS: no acute distress and patient oriented x3 GENERAL APPEARANCE: cooperative and comfortable ORIENTATION/CONSCIOUSNESS: Yes awake, Yes oriented to person, Yes oriented to place and Yes oriented to time Chest: COMMONS NORMALS: normal inspection of the chest and normal palpation of entire chest wall CHEST: Yes Symmetrical chest wall rise Resp: COMMON NORMALS: normal respiratory effort, No retractions and No use of accessory muscles EFFORT & INSPECTION: Yes symmetric chest movement A USCULTATION: crackles Laterality: bilateral and posterior and diminished lung sounds bilateral in the lower lung burrell Cardio: COMMON NORMALS: regular rate, regular rhythm, S1 normal heart sound present, S2 normal heart sound present, No gallops present (Cardio), No clicks present (Cardio), No murmurs present (Cardio) and No rub (Cardio) RATE: r egular rate RHYTHM: regular rhythm HEART SOUNDS: S1 normal heart sound present and S2 normal heart sound present PERIPHERAL PULSES: radial pulses present Extremity: COMMON NORMALS: no pedal edema Neuro: COMMON NORMALS: patient oriented x3 and moves all extremities S ENSORIUM/ORIENTATION: Yes oriented to person, Yes oriented to place and Yes oriented to time Data 04/12/25 09:37 04/12/25 09:37 A&P Assessment and plan (1) Arteriosclerotic heart disease (ASHD): (2) Benign essential HTN: (3) Dyslipidemia (high LDL; low HDL): (4) Type 2 diabetes mellitus: (5) ESRD (end stage renal disease) on dialysis: (6) Acute CHF: Plan Will plan to diurese with Lasix 80 mg IV twice daily, request to consult nephrology for possible hemodialysis, ordered echocardiogram to evaluate cardiac status further. Trend troponin and EKGs. He has been started on a nitroglycerin infusion, which is improving his uncontrolled hypertension. Heparin infusion has been started as well. Discussed plan of care with his hospitalist Dr. Talamantes. 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
--- NOTE | 2025-04-12 11:44 | USCV_ITS ---
Abimael Cochran Age: 54 Gender: M : 1970 Exam Date: 04/12/2025 15:15 Ordering Phys: Sirena Felix Technologist: Claude Zee Exam Location: [facility] [place] Indication: cp sob BP: 132 / 81 HR: 70 Rhythm: Sinus Technical Quality: Adequate MEASUREMENTS (Male / Female) Normal Values 2D ECHO LV Diastolic Diameter PLAX 5.6 cm 4.2 - 5.9 / 3.9 - 5.3 cm IVS Diastolic Thickness 1.4 cm 0.6 - 1.0 / 0.6 - 0.9 cm IVS Systolic Thickness 2.2 cm LVPW Diastolic Thickness 1.3 cm 0.6 - 1.0 / 0.6 - 0.9 cm LVPW Systolic Thickness 2.6 cm LVOT Diameter 2.2 cm LV Ejection Fraction 2D Teich 68.6 % LV Ejection Fraction MOD 4C 62.6 % LV Ejection Fraction MOD 2C 59.5 % LV Ejection Fraction 2C AL 62.4 % LA Diameter 4.1 cm RA Systolic Volume 4C AL 86.8 ml RA Systolic Volume 4C MOD 85.9 ml LA Sys Volume AL 127.2 cm cubed LA Sys Volume Index AL 53.9 cm cubed/m squared Aorta at Sinotubular Diameter 2.9 cm M-MODE LA Ao Ratio MM 1.1 AV Cusp Separation MM 2.0 cm DOPPLER AV Peak Velocity 172.0 cm/s LVOT Peak Velocity 110.0 cm/s AV Area Cont Eq vti 2.7 cm squared AV Area Cont Eq pk 2.3 cm squared MV Peak Velocity 116.0 cm/s MV Area PHT 4.2 cm squared Mitral E to A Ratio 1.1 TV Peak Velocity 242.0 cm/s TR Peak Velocity 276.0 cm/s TR Peak Gradient 30.5 mmHg TV Peak E Velocity 123.0 cm/s PV Peak Velocity 106.0 cm/s FINDINGS Left Ventricle Normal left ventricular size, systolic function and wall thickness, with no regional wall motion abnormalities. Left ventricular ejection fraction is estimated at 55 %. Grade II/IV diastolic dysfunction, moderately elevated filling pressures. Right Ventricle The right ventricle is normal in size and function. Right Atrium The right atrium is normal in size. Left Atrium Moderately increased left atrial size. Mitral Valve Moderately thickened mitral valve. Moderate mitral annular calcification. No mitral valve stenosis. Mild mitral valve regurgitation. Aortic Valve Moderate aortic valve calcification. Mild aortic valve stenosis, mean gradient 4.8 mmHg, JANETTE 2.7 cm squared. Trace aortic valve regurgitation. Tricuspid Valve Mild tricuspid valve regurgitation. Pulmonic Valve Structurally normal pulmonic valve without significant stenosis. There is no pulmonic regurgitation. Pericardium Normal pericardium without effusion. Aorta Normal ascending aorta dimension. IVC The inferior vena cava appears normal. CONCLUSIONS Normal left ventricular size, systolic function and wall thickness, with no regional wall motion abnormalities. Left ventricular ejection fraction is estimated at 55 %. Grade II/IV diastolic dysfunction, moderately elevated filling pressures. Moderate aortic valve calcification. Mild aortic valve stenosis, mean gradient 4.8 mmHg, JANETTE 2.7 cm squared. Trace aortic valve regurgitation. Mild tricuspid valve regurgitation. There is no pericardial effusion. Right atrial pressure is around 5 mm of mercury. Shantel Flores MD (Electronically Signed) Final Date: 13 April 2025 18:03 S
[2025-04-12 11:54] LABS: Troponin 5 2HR Delta -0.5 ABS# (0-10)
[2025-04-12 11:55] LABS: Troponin 5 2HR 123.5 ng/L (0-15)
--- NOTE | 2025-04-12 12:36 | PC.NURSE ---
PTT ORDER SCHEDULED FOR 1700. ORDERED BY THIS NURSE.
--- NOTE | 2025-04-12 12:52 | PM.HP ---
Providers/Chief Complaint Admitting Physician: Anthony Talamantes Primary Care Provider: ALONDRA Caldera Chief Complaint: cp, [facility] History of Present Illness Abimael Cochran is a 54 year old patient with a history of diabetes mellitus, hypertension, hyperlipidemia, obesity, major depressive disorder, generalized anxiety disorder, peripheral neuropathy, chronic kidney disease on Wednesday/Wednesday/Wednesday hemodialysis, prior stroke, and known coronary artery disease status post mid-LAD stent placement (July) who presented to the emergency department for chest pain that started around 6 PM last night. The pain occurred both at rest and with exertion and was associated with diaphoresis and dyspnea. In the ED vital signs showed BP up to 186/91 mmHg, HR 78 bpm, RR 16, and SpO? 91?96 % on room air. Laboratory evaluation revealed normal WBC, chronic anemia with Hgb 8.8 g/dL, mild thrombocytopenia (139 K/?L), creatinine 3.9 mg/dL, and an elevated troponin (exact value not documented). Chest X-ray demonstrated cardiomegaly and possible bilateral pleural effusions with interstitial edema. Treatment in the ED included aspirin, initiation of a heparin infusion, nitroglycerin, IV furosemide 80 mg, and morphine, after which the chest discomfort eased. The patient reports several days of non-adherence to Plavix due to an upcoming fistula procedure. Additional complaints include chronic severe heartburn, intermittent nausea with dry heaves, watery diarrhea, and previously dark stools while on iron therapy; no vomiting, fever, chills, cough, or leg swelling were reported. GI history includes GERD treated with metoclopramide and a proton pump inhibitor, and prior gastric sleeve surgery. Cardiology has been consulted; nephrology consultation is planned. No recent echocardiogram has been performed. Review of Systems Const: Denies: fever(s), chills, body aches or malaise ENMT: Denies: throat pain Card: Reports: chest pain and dyspnea on exertion; Denies: edema or pre-syncope Resp: Denies: dyspnea, productive cough, change in phlegm color or hemoptysis GI: Reports: nausea and diarrhea; Denies: abdominal pain, vomiting, constipation, hematochezia or melena : Denies: flank pain, difficulty urinating, urinary frequency or hematuria Musc: Denies: back pain, joint swelling or joint redness Skin/Breast: Denies: rash or new lesions Neuro: Denies: headache(s) or confusion Medications/Allergies Home Medications ?Medication ?Instructions ?Recorded ?Confirmed ?Last Taken ?Type atorvastatin 40 mg tablet 40 mg PO DAILY 11/07/20 04/12/25 04/12/25 History tamsulosin 0.4 mg capsule (Flomax) 0.4 mg PO DAILY 11/07/20 04/12/25 04/11/25 History aspirin 81 mg tablet,delayed 81 mg PO DAILY 02/03/21 04/12/25 04/12/25 History release bumetanide 0.5 mg tablet 0.5 mg PO DAILY 09/20/24 04/12/25 Unknown History famotidine 20 mg tablet 20 mg PO DAILY 09/20/24 04/12/25 04/12/25 History losartan 100 mg tablet 100 mg PO DAILY 30 days #30 tabs 10/19/24 04/12/25 04/12/25 Rx buspirone 10 mg tablet 10 mg PO BID #60 tabs 11/16/24 04/12/25 04/12/25 Rx clonidine 0.1 mg/24 hr weekly 1 patch transdermal .Weekly 11/16/24 04/12/25 Unknown History transdermal patch duloxetine 60 mg capsule,delayed 120 mg (2 x 60 mg) PO DAILY #60 11/16/24 04/12/25 04/12/25 Rx release caps sertraline 100 mg tablet (Zoloft) 200 mg (2 x 100 mg) PO DAILY #60 11/16/24 04/12/25 04/12/25 Rx tabs trazodone 100 mg tablet 400 mg (4 x 100 mg) PO .HS PRN 11/16/24 04/12/25 Unknown Rx insomnia #120 tabs metoprolol tartrate 100 mg tablet 100 mg PO BID 12/25/24 04/12/25 04/12/25 History nifedipine 60 mg tablet,extended 60 mg PO DAILY 12/25/24 04/12/25 04/12/25 History release 24 hr terazosin 5 mg capsule 5 mg PO DAILY 12/25/24 04/12/25 04/12/25 History torsemide 10 mg tablet 10 mg PO .NONDIALYSISDAYS 12/25/24 04/12/25 Unknown History Hinged Knee Brace #1 ea 01/02/25 04/12/25 Unknown Rx megestrol 400 mg/10 mL (40 mg/mL) 10 mg PO DAILY 02/20/25 04/12/25 04/11/25 History oral suspension clopidogrel 75 mg tablet (Plavix) 75 mg PO DAILY 90 days #30 tabs 03/06/25 04/12/25 04/12/25 Rx bupropion HCl 300 mg 24 hr tablet, 300 mg PO QAM #30 tabs 03/20/25 04/12/25 04/12/25 Rx extended release (Wellbutrin XL) pantoprazole 40 mg tablet,delayed 40 mg PO BID POST GASTRIC SLEEVE 04/05/25 04/12/25 04/12/25 Rx release (Protonix) 30 days #60 tabs hydralazine 100 mg tablet 100 mg PO BID 04/12/25 04/12/25 04/12/25 History Allergies Allergy/AdvReac Type Severity Reaction Status Date / Time diphenhydramine (From Allergy Unknown Unknown Verified 04/12/25 08:52 Benadryl) ertapenem (From Invanz) Allergy Unknown Unknown Verified 04/12/25 08:52 PFSH Acute PFSH: Medical History Peripheral neuropathy Generalized anxiety disorder Major depressive disorder, recurrent severe without psychotic features Atherosclerotic heart disease [place] coronary artery w/angina pectoris Diabetes mellitus Hypertension [facility] care GERD (gastroesophageal reflux disease) Chronic kidney disease Hypertension Hyperlipidemia Diabetes Morbid obesity Bereavement Chronic major depressive disorder Colon polyp Encounter for screening colonoscopy Surgical History History of colonoscopy with polypectomy History of tonsillectomy History of foot surgery History of shoulder surgery Family History Denies family history of Anesthesia complication Bleeding disorder Social History Smoking and tobacco/nicotine status: former use of tobacco/nicotine Quit status (tobacco/nicotine): has tried quititng Number of times tried to quit tobacco: 3 Second hand smoke exposure: Yes (Occ.) Alcohol intake: current Alcohol intake frequency: holidays/special occasions only Alcohol type: beer Substance/Drug Use: current Substance/Drug use frequency: few times a week Other substance/drug use details: A few times a week. Vitals/I&O/Wt Last Vital Signs Temp 98.7 F 04/12/25 09:19 Pulse 78 04/12/25 12:15 Resp 16 04/12/25 11:25 BP 155/81 04/12/25 12:15 Pulse Ox 91 04/12/25 12:15 O2 Del Method Room Air 04/12/25 11:25 04/11/25 04/12/25 04/12/25 22:59 06:59 14:59 Intake Total 2.55 / 2.55 Balance 2.55 / 2.55 Weight last 48 hrs Weight 100.698 kg Physical Exam Narrative: Accompanied by his Const: COMMON NORMALS: patient oriented x3 and alert GENERAL APPEARANCE: cooperative ORIENTATION/CONSCIOUSNESS: Yes awake HENMT: COMMON NORMALS: oropharynx normal Neck/C-Spine: COMMON NORMALS: no JVD Resp: COMMON NORMALS: normal respiratory effort and clear to auscultation bilaterally AUSCULTATION: clear to auscultation bilaterally Cardio: COMMON NORMALS: no JVD, regular rhythm, S1 normal heart sound present, S2 normal heart sound present and No murmurs present (Cardio) RHYTHM: regular rhythm HEART SOUNDS: S1 normal heart sound present and S2 normal heart sound present GI: COMMON NORMALS: Normal to inspection, nondistended, normoactive bowel sounds present, Soft to palpation and non-tender PALPATION: Yes Soft to palpation Extremity: COMMON NORMALS: no joint enlargement and no pedal edema Neuro: COMMON NORMALS: patient oriented x3 and moves all extremities SENSORIUM/ORIENTATION: Yes alert Skin: COMMON NORMALS: no rashes or lesions noted GENERAL SKIN EXAM: no rashes or lesions noted Data 04/12/25 09:37 04/12/25 09:37 A&P Assessment and plan (1) NSTEMI (non-ST elevated myocardial infarction): Chest pain with elevated troponin, CAD with prior LAD stent, ; cardiology consulted; receiving aspirin, heparin, nitroglycerin; improvement noted. He missed a few days of Plavix due to running out of prescription and not having a refill, however, he has also been asked to hold Plavix now in anticipation of a planned fistulogram in [place] due to fistula malfunction. Reviewed vitals, CBC, CMP, troponin, EKG, chest x-ray, ED provider note, discussed with ED provider. Discussed with cardiology. - Continue aspirin therapy. - Restart clopidogrel - Maintain heparin infusion per cardiology protocol. Monitor risk of bleeding. Monitor PTT. Repeat blood counts. - Serial troponins and ECG monitoring. Monitor on telemetry with risk of arrhythmia. - Consider echocardiogram; reassess need for cardiac catheterization based on cardiology recommendations. - Monitor chest pain and report any recurrence immediately. (2) Acute CHF: With interstitial edema on chest x-ray. Dyspnea on exertion. Did have dialysis yesterday on his regular day. Has been started on IV diuresis with IV Lasix 80 mg twice daily. He does still produce some urine. Requesting nephrology consultation for hemodialysis. Monitor intake output. Monitor electrolytes. Monitor telemetry. (3) Hypertensive urgency: Blood pressure as high as 186/91, 180/95, with chest pain, troponin elevation of 224 at baseline, and 23.5 at 2 hours. Continue nitroglycerin drip. So far chest pain has subsided. Complete troponin EKG series. Assess echocardiogram. Continue antihypertensive agents including hydralazine losartan metoprolol nifedipine and clonidine. (4) Arteriosclerotic heart disease (ASHD): With prior stenting. Continue DAPT (5) ESRD (end stage renal disease) on dialysis: On dialysis MWF via right chest port. Has had fistula malfunction and plans were being made for fistulogram in [place] due to which he has been holding Plavix for a few days. Plan MDD, RODERICK: Continue to depressants GERD: He is on both PPI and famotidine due to inadequacy of single medication he states due to very bad GERD. Anemia: Has had some dark stools but states he is also on iron. Will request Hemoccult. Diarrhea: States has had bad diarrhea in the last 3 days. Will check C. difficile as he reports history of C. difficile. Reported history of diabetes, but on review A1c was normal PDMP PDMP Reviewed: Not Reviewed Attestations Medical Necessity Statement*: Admission over 2 midnights anticipated for assessment management of acute systolic CHF, NSTEMI, hypertensive urgency and interment with underlying CAD, ESRD on dialysis, additional comorbidities as above. and High MDM includes amount and/or complexity of data reviewed/ordered [ previous or external records, resulted lab(s)/test(s), ordered lab(s)/test(s) and other healthcare professional discussion] and described risk of complication, morbidity or mortality of management as documented Diagnoses NSTEMI (non-ST elevated myocardial infarction) I21.4 Acute CHF I50.9 Hypertensive urgency I16.0 Arteriosclerotic heart disease (ASHD) I25.10 ESRD (end stage renal disease) on dialysis N18.6; Z99.2
[2025-04-12] MEDS: FUROsemide 10 mg/mL SDV 10mL 80 MG IVP (13:40)
--- NOTE | 2025-04-12 15:33 | PM.CONSULT ---
Providers/Reason For Consult Consulting Physician/Specialty*: Guzman Summers MD/telenephrology Reason for Consult*: ESRD care Requesting Physician: Dr Sood Attending Physician: Anthony Talamantes Primary Care Provider: ALONDRA Caldera History of Present Illness History of Present Illness Abimael Cochran is a 54 year old male who presented with shortness of breath PND orthopnea and chest pressure. Patient was diagnosed with a non-ST elevation NM felt to be type II with hypertensive urgency acute decompensated on chronic systolic heart failure. Patient has underlying history of coronary artery disease history of a chronically occluded RCA with [id number] collaterals history of prior stent LAD. The patient was given IV Lasix and is now feeling better. The patient was seen by cardiology. Patient has history of ESRD started dialysis on his admission in June and July 2024. The patient is on dialysis Wednesday and Wednesday. Has history of CVA he has history of anemia. In the emergency room patient chest x-ray with bilateral pleural effusions patient was started heparin nitroglycerin furosemide morphine. [facility] was called to provide dialysis tomorrow by the time I see the patient he is comfortable Review of Systems Narrative: Shortness of breath and chest pain started last night is now improved. He denies nausea. Positive occasional headaches. No diarrhea no leg pains no itching or cramps. No hearing nursing issues. Patient states breathing is better. Patient denies headaches at this time. The patient did run out of some of his meds recently including his antiplatelet therapy and not sure if he is able to take or get all of his medications. Medications/Allergies Home Medications ?Medication ?Instructions ?Recorded ?Confirmed ?Last Taken ?Type atorvastatin 40 mg tablet 40 mg PO DAILY 11/07/20 04/12/25 04/12/25 History tamsulosin 0.4 mg capsule (Flomax) 0.4 mg PO DAILY 11/07/20 04/12/25 04/11/25 History aspirin 81 mg tablet,delayed 81 mg PO DAILY 02/03/21 04/12/25 04/12/25 History release bumetanide 0.5 mg tablet 0.5 mg PO DAILY 09/20/24 04/12/25 Unknown History famotidine 20 mg tablet 20 mg PO DAILY 09/20/24 04/12/25 04/12/25 History losartan 100 mg tablet 100 mg PO DAILY 30 days #30 tabs 10/19/24 04/12/25 04/12/25 Rx buspirone 10 mg tablet 10 mg PO BID #60 tabs 11/16/24 04/12/25 04/12/25 Rx clonidine 0.1 mg/24 hr weekly 1 patch transdermal .Weekly 11/16/24 04/12/25 Unknown History transdermal patch duloxetine 60 mg capsule,delayed 120 mg (2 x 60 mg) PO DAILY #60 11/16/24 04/12/25 04/12/25 Rx release caps sertraline 100 mg tablet (Zoloft) 200 mg (2 x 100 mg) PO DAILY #60 11/16/24 04/12/25 04/12/25 Rx tabs trazodone 100 mg tablet 400 mg (4 x 100 mg) PO .HS PRN 11/16/24 04/12/25 Unknown Rx insomnia #120 tabs metoprolol tartrate 100 mg tablet 100 mg PO BID 12/25/24 04/12/25 04/12/25 History nifedipine 60 mg tablet,extended 60 mg PO DAILY 12/25/24 04/12/25 04/12/25 History release 24 hr terazosin 5 mg capsule 5 mg PO DAILY 12/25/24 04/12/25 04/12/25 History torsemide 10 mg tablet 10 mg PO .NONDIALYSISDAYS 12/25/24 04/12/25 Unknown History Hinged Knee Brace #1 ea 01/02/25 04/12/25 Unknown Rx megestrol 400 mg/10 mL (40 mg/mL) 10 mg PO DAILY 02/20/25 04/12/25 04/11/25 History oral suspension clopidogrel 75 mg tablet (Plavix) 75 mg PO DAILY 90 days #30 tabs 03/06/25 04/12/25 04/12/25 Rx bupropion HCl 300 mg 24 hr tablet, 300 mg PO QAM #30 tabs 03/20/25 04/12/25 04/12/25 Rx extended release (Wellbutrin XL) pantoprazole 40 mg tablet,delayed 40 mg PO BID POST GASTRIC SLEEVE 04/05/25 04/12/25 04/12/25 Rx release (Protonix) 30 days #60 tabs hydralazine 100 mg tablet 100 mg PO BID 0704/12/25 04/12/25 History Allergies Allergy/AdvReac Type Severity Reaction Status Date / Time diphenhydramine (From Allergy Unknown Unknown Verified 04/12/25 08:52 Benadryl) ertapenem (From Invanz) Allergy Unknown Unknown Verified 04/12/25 08:52 Current Medications Generic Name Dose Route Start Last Admin Trade Name Freq PRN Reason Stop Dose Admin Furosemide 80 mg 04/12/25 12:00 04/12/25 13:40 Furosemide 10 Mg/Ml Sdv 10ml IVP 80 mg Q12H ISABEL Administration Heparin Sodium/Sodium Chloride 25,000 unit in 500 mls @ 0 mls/hr 04/12/25 10:30 04/12/25 11:02 Heparin Drip IV 14.4 unit/kg/hr CONT ISABEL 29 mls/hr Protocol Administration Per Protocol Nitroglycerin/Dextrose 50 mg in 250 mls @ 0 mls/hr 04/12/25 10:30 04/12/25 11:49 Nitroglycerin Drip IV 20 mcg/min .Q0M ISABEL 6 mls/hr Protocol Titration Per Protocol PFSH Acute PFSH: Medical History Peripheral neuropathy Generalized anxiety disorder Major depressive disorder, recurrent severe without psychotic features Atherosclerotic heart disease [place] coronary artery w/angina pectoris Diabetes mellitus Hypertension [facility] care GERD (gastroesophageal reflux disease) Chronic kidney disease Hypertension Hyperlipidemia Diabetes Morbid obesity Bereavement Chronic major depressive disorder Colon polyp Encounter for screening colonoscopy Surgical History History of colonoscopy with polypectomy History of tonsillectomy History of foot surgery History of shoulder surgery Family History Denies family history of Anesthesia complication Bleeding disorder Social History Smoking and tobacco/nicotine status: former use of tobacco/nicotine Quit status (tobacco/nicotine): has tried quititng Number of times tried to quit tobacco: 3 Second hand smoke exposure: Yes (Occ.) Alcohol intake: current Alcohol intake frequency: holidays/special occasions only Alcohol type: beer Substance/Drug Use: current Substance/Drug use frequency: few times a week Other substance/drug use details: A few times a week. Vitals/I&O/Wt Last Vital Signs Temp 98.7 F 04/12/25 09:19 Pulse 80 04/12/25 13:05 Resp 20 H 04/12/25 13:05 BP 141/79 04/12/25 13:05 Pulse Ox 93 04/12/25 13:05 O2 Del Method Room Air 04/12/25 12:52 04/12/25 04/12/25 04/12/25 06:59 14:59 22:59 Intake Total 2.55 / 2.55 Balance 2.55 / 2.55 Weight last 48 hrs Weight 100.698 kg Weight 100.698 kg Physical Exam Narrative: Patient is comfortable lying down not using any nasal cannula oxygen. Vital signs are now improved. HEENT normocephalic atraumatic. Neck is supple. Lungs dull bases bilaterally. Heart regular without significant rubs or gallops. Abdomen is soft positive bowel sounds. Extremities: Left upper extremity AV fistula with good thrill and bruit. However is not mature to use. Neuro awake alert oriented x 3 moves all extremities. Dialysis access is an IJ permacath. Patient was seen and examined with the aid of a nurse using audiovisual equipment. Data 04/12/25 09:37 04/12/25 09:37 A&P Assessment and plan (1) ESRD (end stage renal disease) on dialysis: Type II non-ST elevation NM as per cardiology 2. ESRD plan on dialysis in the morning. 3. Hypertension improving. Lower weight on dialysis. 4. Anemia-we will check iron studies. If okay with cardiology will start Epogen. Medications reviewed. May be difficult for patient to take all of these medications at home. Hopefully we can simplify his medical regimen soon Follow-up official echo reading tomorrow. Patient seen and examined using audiovisual equipment with the aid of a nurse patient consents to telehealth and to hemodialysis. Plan 54-year-old gentleman ESRD coronary artery disease, type 2 diabetes, hypertension, hyperlipidemia 1. Type II non-ST elevation NM as per cardiology 2. ESRD plan on dialysis in the morning. 3. Hypertension improving. Lower weight on dialysis. 4. Anemia-we will check iron studies. If okay with cardiology will start Epogen. Medications reviewed. May be difficult for patient to take all of these medications at home. Hopefully we can simplify his medical regimen soon Follow-up official echo reading tomorrow. Patient seen and examined using audiovisual equipment with the aid of a nurse patient consents to telehealth and to hemodialysis. PDMP PDMP Reviewed: Not Reviewed Consult Attestations Medical Necessity Statement: Hypertension chest pain end-stage renal disease shortness of breath. Time Spent in Patient Care: Greater than 35 minutes (>than 50% of time spent in counselling and/or direct pt care on unit). Coding Level of Care Code Acute Code for Chg Fwd Diagnoses ESRD (end stage renal disease) on dialysis N18.6; Z99.2
--- NOTE | 2025-04-12 15:35 | ECG_ITS ---
[employer] Test Date: 2025-04-12 Pat Name: Abimael Cochran Department: Room: 106 Gender: Male [place]: : 1970 Requested By: Leandro Jones Order Number: [id number] Reading MD: Measurements Intervals [place] Rate: 76 P: 47 ID: [id number] QRS: -9 QRSD: 103 T: 0 QT: 353 QTc: 398 Interpretive Statements SINUS RHYTHM POSSIBLE LEFT ATRIAL ENLARGEMENT [-0.1mV P-WAVE IN V1/V2] SEPTAL MYOCARDIAL INFARCTION , OF INDETERMINATE AGE [40+ ms Q WAVE IN V1/V2] Compared to ECG 04/12/2025 13:21:28 No significant changes [email or web address]
[2025-04-12 15:42] LABS: Troponin 5 6HR Delta -13.1 ng/L (0-12)
[2025-04-12 15:43] LABS: Troponin 5 6HR 110.9 ng/L (0-15)
[2025-04-12 16:25] LABS: Uric Acid 2.5 mg/dL (3.4-7.0)
[2025-04-12 16:30] LABS: Hepatitis B Surface Antigen Non-Reactive (Nonreactive)
[2025-04-12 17:23] LABS: Partial Thromboplastin Time 78.3 SECONDS (23.9-36.7)
[2025-04-12 23:45] LABS: Partial Thromboplastin Time 63.5 SECONDS (23.9-36.7)
[2025-04-13] VITALS (11 sets, daily range): BP systolic 129–199; BP diastolic 71–105; PULSE 67–84; RESP 16–21; TEMP 36.6–37.4; O2SAT 91–97
[2025-04-13] MEDS: FUROsemide 10 mg/mL SDV 10mL 80 MG IVP (00:34)
[2025-04-13] MEDS: heparin drip 25,000 UNIT/500 ML PREMIX 27 UNIT IV (05:16)
[2025-04-13 06:53] LABS: Hematocrit 25.7 % (37-53); Hemoglobin 8.20 g/dL (11.27-16.99); Mean Corpuscular HGB Conc 31.9 g/dL (30-55); Mean Corpuscular Hemoglobin 27.2 pg (27-33); Mean Corpuscular Volume 85.1 fl (82-101); Nucleated Red Blood Cells % 0 %; Platelet Count 134 10^3/cmm (157-399); Red Blood Count 3.02 10^6/uL (3.85-5.65); White Blood Count 3.80 10^3/uL (3.29-11.43)
[2025-04-13 07:03] LABS: Partial Thromboplastin Time 59.1 SECONDS (23.9-36.7)
[2025-04-13 07:08] LABS: Ferritin 545 ng/mL (30-400); Iron 62 ug/dL (59-158); Total Iron Binding Capacity 144 mcg/dl; Unsaturated Iron Binding 82 ug/dL (112-347)
[2025-04-13 07:09] LABS: Alanine Aminotransferase < 5 U/L (0-41); Albumin Level 3.3 g/dL (3.5-5.2); Alkaline Phosphatase 58 U/L (40-130); Anion Gap 15.9 (5-19); Aspartate Amino Transferase 9 U/L (0-40); Blood Urea Nitrogen 22 mg/dL (6-20); Calcium 8.4 mg/dL (8.5-10.5); Carbon Dioxide 26 mmol/L (22-29); Chloride 99 mmol/L (98-107); Creatinine Clr Calc Pharmacy 20.3851; Globulin 2.0 g/dL (1.3-4.6); Glucose 90 mg/dL (65-115); Magnesium 2.0 mg/dL (1.7-2.3); Osmolality Calculated 287 mOsm/kg (285-295); Potassium 3.9 mmol/L (3.5-5.1); Sodium 137 mmol/L (136-145); Total Protein 5.3 g/dL (6.6-8.7)
[2025-04-13 07:21] LABS: Calcium 8.2 mg/dL (8.5-10.5)
--- NOTE | 2025-04-13 07:32 | PC.NURSE ---
to dialysis via bed at 0715
--- NOTE | 2025-04-13 08:22 | PC.SOCIAL ---
IMM Update Pg. 2 of IMM Updated and copy provided at bedside.
--- NOTE | 2025-04-13 08:25 | P.PN_ITS ---
Subjective 2 Subjective: seen on dialysis. still has CP and SOB. no n/v/f/c/fletcher/d Medications: Reviewed: Yes Medication Review Details: Current Medications Acetaminophen (Acetaminophen 325 Mg Tablet) 650 mg PO Q6H PRN PRN Reason: Mild/Mod Pain Or Temp >/= 101 Aspirin (Aspirin 81 Mg Ec Tablet) 81 mg PO DAILY [facility] Atorvastatin Calcium (Atorvastatin 40 Mg Tablet) 40 mg PO DAILY [facility] Bupropion HCl (Bupropion Xl (24 Hr) 300 Mg Tablet) 300 mg PO QAM [facility] Last Admin: 04/13/25 05:15 Dose: 300 mg Clopidogrel Bisulfate (Clopidogrel 75 Mg Tablet) 75 mg PO DAILY [facility] Duloxetine HCl (Duloxetine 60 Mg Capsule) 120 mg PO DAILY [facility] Famotidine (Famotidine 20 Mg Tablet) 20 mg PO DAILY [facility] Furosemide (Furosemide 10 Mg/Ml Sdv 10ml) 80 mg IVP Q12H [facility] Last Admin: 04/13/25 00:34 Dose: 80 mg Heparin Sodium (Porcine) (Heparin 5,000 Unit/Ml Inj 1 Ml) 0 unit IVP PRN PRN; Protocol PRN Reason: Heparin Weight Based Protocol -Subsequent Bolus Hydralazine HCl (Hydralazine 50 Mg Tablet) 100 mg PO BID [facility] Last Admin: 04/12/25 17:13 Dose: 100 mg Heparin Sodium/Sodium Chloride (Heparin Drip) 25,000 unit in 500 mls @ 0 mls/hr IV CONT [facility]; Protocol Last Titration: 04/13/25 07:06 Dose: 13.41 unit/kg/hr, 27 mls/hr Nitroglycerin/Dextrose (Nitroglycerin Drip) 50 mg in 250 mls @ 0 mls/hr IV .Q0M [facility]; Protocol Last Titration: 04/12/25 11:49 Dose: 20 mcg/min, 6 mls/hr Losartan Potassium (Losartan 50 Mg Tablet) 100 mg PO DAILY [facility] Metoprolol Tartrate (Metoprolol Tartrate 50 Mg Tablet) 100 mg PO BID [facility] Last Admin: 04/12/25 17:13 Dose: 100 mg Morphine Sulfate (Morphine 4 Mg/Ml Sdv 1 Ml) 2 mg IVP Q4H PRN PRN Reason: SEVERE PAIN Nifedipine (Nifedipine Er (24 Hr) 30 Mg Tablet) 60 mg PO DAILY [facility] Ondansetron HCl (Ondansetron 2 Mg/Ml Sdv 2 Ml) 4 mg IVP Q6H PRN PRN Reason: NAUSEA AND VOMITING Pantoprazole Sodium (Pantoprazole Dr 40 Mg Tablet) 40 mg PO BID [facility] Last Admin: 04/12/25 17:13 Dose: 40 mg Sertraline HCl (Sertraline 100 Mg Tablet) 200 mg PO DAILY [facility] Trazodone HCl (Trazodone 100 Mg Tablet) 400 mg PO BEDTIME [facility] Last Admin: 04/12/25 22:12 Dose: 400 mg Vitals/I&O/Wt Last Vital Signs Temp 99.3 F 04/13/25 07:34 Pulse 74 04/13/25 07:34 Resp 18 04/13/25 07:34 BP 166/93 04/13/25 07:34 Pulse Ox 96 04/13/25 04:00 O2 Del Method Room Air 04/13/25 04:00 04/12/25 04/13/25 04/13/25 22:59 06:59 14:59 Intake Total 670.917 / 673.467 459.083 / 1132.550 49.5 / 49.5 Balance 670.917 / 673.467 459.083 / 1132.550 49.5 / 49.5 Weight last 48 hrs Weight 100.199 kg Weight 100.698 kg Weight 100.698 kg Physical Exam 2 Narrative: Patient is comfortable lying down not using any nasal cannula oxygen. Vital signs are now improved. HEENT normocephalic atraumatic. Neck is supple. Lungs dull bases bilaterally. Heart regular without significant rubs or gallops. Abdomen is soft positive bowel sounds. Extremities: Left upper extremity AV fistula with good thrill and bruit. However is not mature to use. Neuro awake alert oriented x 3 moves all extremities. Dialysis access is an rt IJ permacath. Patient was seen and examined with the aid of a nurse using audiovisual equipment. Data 04/13/25 06:22 04/13/25 06:22 A&P Assessment and plan (1) ESRD (end stage renal disease) on dialysis: Type II non-ST elevation MT as per cardiology 2. ESRD - seen on dialysis 3. Hypertension improving. Lower weight on dialysis. 4. Anemia-we will check iron studies. If okay with cardiology will start Epogen. Medications reviewed. May be difficult for patient to take all of these medications at home. Hopefully we can simplify his medical regimen soon Follow-up official echo reading tomorrow. Patient seen and examined using audiovisual equipment with the aid of a nurse patient consents to telehealth and to hemodialysis. Plan -dialysis now and monitor BP and cardiac status Patient seen and examined using audiovisual equipment with the aid of a nurse patient consents to telehealth and to hemodialysis. PDMP PDMP Reviewed: Not Reviewed Attestations 2 Medical Necessity Statement*: ESRD, CP, htn Time Spent in Patient Care: 16 - 35 minutes (>than 50% of time sp ent in counselling and/or direct pt care on unit) . Coding Level of Care Code Acute Code for Chg Fwd Diagnoses ESRD (end stage renal disease) on dialysis N18.6; Z99.2
--- NOTE | 2025-04-13 08:39 | P.PN_ITS ---
Subjective 2 Subjective: Chest pain although improved has not completely gone away. Breathing without worsening. So far no further diarrhea. Has not had a BM. Vitals/I&O/Wt Last Vital Signs Temp 99.3 F 04/13/25 07:34 Pulse 74 04/13/25 07:34 Resp 18 04/13/25 07:34 BP 166/93 04/13/25 07:34 Pulse Ox 96 04/13/25 04:00 O2 Del Method Room Air 04/13/25 04:00 04/12/25 04/13/25 04/13/25 22:59 06:59 14:59 Intake Total 670.917 / 673.467 459.083 / 1132.550 49.5 / 49.5 Balance 670.917 / 673.467 459.083 / 1132.550 49.5 / 49.5 Weight last 48 hrs Weight 100.199 kg Weight 100.698 kg Weight 100.698 kg Physical Exam 2 Narrative: Undergoing dialysis Const: COMMON NORMALS: patient oriented x3 and alert GENERAL APPEARANCE: c ooperative ORIENTATION/CONSCIOUSNESS: Yes awake HENMT: COMMON NORMALS: oropharynx normal Neck/C-Spine: COMMON NORMALS: no JVD Resp: COMMON NORMALS: normal respiratory effort and clear to auscultation bilaterally AUSCULTATION: clear to auscultation bilaterally Cardio: COMMON NORMALS: no JVD, regular rhythm, S1 normal heart sound present, S2 normal heart sound present and No murmurs present (Cardio) RHYTHM: regular rhythm HEART SOUNDS: S1 normal heart sound present and S2 normal heart sound present GI: COMMON NORMALS: Normal to inspection, nondistended, normoactive bowel sounds present, Soft to palpation and non-tender PALPATION: Yes Soft to palpation Extremity: COMMON NORMALS: no joint enlargement and no pedal edema Neuro: COMMON NORMALS: patient oriented x3 and moves all extremities S ENSORIUM/ORIENTATION: Yes alert Skin: COMMON NORMALS: no rashes or lesions noted GENERAL SKIN EXAM: no rashes or lesions noted Data 04/13/25 06:22 04/13/25 06:22 A&P Assessment and plan (1) NSTEMI (non-ST elevated myocardial infarction): Blood pressures overall with improvement down into 120s-130s overnight, although this morning up to 166/93 predialysis. Currently undergoing dialysis. Continue to monitor blood pressures. Continue heparin drip. Monitor for risk of bleeding, monitor blood counts, PTT. Pending echocardiogram results, follow-up. Pending cardiac reassessment. Continue aspirin, Plavix. Continue optimization of volume status and blood pressure control. Nitroglycerin drip. Monitor for risk of hypotension. Reviewed vitals, CBC, PTT, CMP, troponin series. (2) Acute CHF: Hemodialysis today. Does not appear to have had a response to IV diuretic. Monitor intake and output. With interstitial edema on chest x-ray. Dyspnea on exertion. Reviewed nephrology note. Monitor intake output. Monitor electrolytes. Monitor telemetry. (3) Hypertensive urgency: Blood pressures improved overnight after nitroglycerin drip, resumption of home medications. Again with some rise this morning up to 160/93, currently undergoing dialysis. Reassess. Further adjustments depending on blood pressures after dialysis. Assess echocardiogram. Continue antihypertensive agents including hydralazine losartan metoprolol nifedipine. He declined clonidine. (4) Arteriosclerotic heart disease (ASHD): With prior stenting. Continue DAPT (5) ESRD (end stage renal disease) on dialysis: Reviewed intake and output, chemistry, nephrology note. On dialysis MWF via right chest port. Has had fistula malfunction and plans were being made for fistulogram in [place] due to which he has been holding Plavix for a few days. Plan MDD, RODERICK: Continue antidepressants GERD: He is on both PPI and famotidine due to inadequacy of single medication he states due to very bad GERD. Anemia: Has had some dark stools but states he is also on iron. Requested Hemoccult. No BM so far. Diarrhea: So far resolved. States has had bad diarrhea in the preceding 3 days. Requested C. difficile as he reports history of C. difficile. Reported history of diabetes, but on review A1c was normal PDMP PDMP Reviewed: Not Reviewed Attestations 2 Medical Necessity Statement*: Continue admission for assessment and management of NSTEMI, acute CHF, optimization of control of hypertension. and High MDM includes described risk of complication, morbidity or mortality of management as documented Diagnoses NSTEMI (non-ST elevated myocardial infarction) I21.4 Acute CHF I50.9 Hypertensive urgency I16.0 Arteriosclerotic heart disease (ASHD) I25.10 ESRD (end stage renal disease) on dialysis N18.6; Z99.2
[2025-04-13] MEDS: FUROsemide 10 mg/mL SDV 10mL 40 MG IVP ×2 (11:34→20:14)
[2025-04-13] MEDS: NIFEdipine ER (24 hr) 30 mg Tablet 60 MG PO (11:36)
--- NOTE | 2025-04-13 11:46 | PC.NURSE ---
return from dialysis via bed at 1230.tolerated procedure well. 2.5 liters removed
[2025-04-13] MEDS: ondansetron 2 mg/ML SDV 2 mL 4 MG IVP (12:24)
[2025-04-13 13:16] LABS: Partial Thromboplastin Time 220.4 SECONDS (23.9-36.7)
--- NOTE | 2025-04-13 13:42 | PC.NURSE ---
ptt reported:240.4.heparin paused...stat ptt ordered
[2025-04-13 14:43] LABS: Partial Thromboplastin Time 51.4 SECONDS (23.9-36.7)
--- NOTE | 2025-04-13 16:46 | P.PN_ITS ---
Subjective 2 Subjective: Patient was seen during while getting dialysis. Denies any chest pain. Medications: Reviewed: Yes Medication Review Details: Current Medications Acetaminophen (Acetaminophen 325 Mg Tablet) 650 mg PO Q6H PRN PRN Reason: Mild/Mod Pain Or Temp >/= 101 Aspirin (Aspirin 81 Mg Ec Tablet) 81 mg PO DAILY [facility] Atorvastatin Calcium (Atorvastatin 40 Mg Tablet) 40 mg PO DAILY [facility] Bupropion HCl (Bupropion Xl (24 Hr) 300 Mg Tablet) 300 mg PO QAM [facility] Last Admin: 04/13/25 05:15 Dose: 300 mg Clopidogrel Bisulfate (Clopidogrel 75 Mg Tablet) 75 mg PO DAILY [facility] Duloxetine HCl (Duloxetine 60 Mg Capsule) 120 mg PO DAILY [facility] Famotidine (Famotidine 20 Mg Tablet) 20 mg PO DAILY [facility] Furosemide (Furosemide 10 Mg/Ml Sdv 10ml) 80 mg IVP Q12H [facility] Last Admin: 04/13/25 00:34 Dose: 80 mg Heparin Sodium (Porcine) (Heparin 5,000 Unit/Ml Inj 1 Ml) 0 unit IVP PRN PRN; Protocol PRN Reason: Heparin Weight Based Protocol -Subsequent Bolus Hydralazine HCl (Hydralazine 50 Mg Tablet) 100 mg PO BID [facility] Last Admin: 04/12/25 17:13 Dose: 100 mg Heparin Sodium/Sodium Chloride (Heparin Drip) 25,000 unit in 500 mls @ 0 mls/hr IV CONT [facility]; Protocol Last Titration: 04/13/25 07:06 Dose: 13.41 unit/kg/hr, 27 mls/hr Nitroglycerin/Dextrose (Nitroglycerin Drip) 50 mg in 250 mls @ 0 mls/hr IV .Q0M [facility]; Protocol Last Titration: 04/12/25 11:49 Dose: 20 mcg/min, 6 mls/hr Losartan Potassium (Losartan 50 Mg Tablet) 100 mg PO DAILY [facility] Metoprolol Tartrate (Metoprolol Tartrate 50 Mg Tablet) 100 mg PO BID [facility] Last Admin: 04/12/25 17:13 Dose: 100 mg Morphine Sulfate (Morphine 4 Mg/Ml Sdv 1 Ml) 2 mg IVP Q4H PRN PRN Reason: SEVERE PAIN Nifedipine (Nifedipine Er (24 Hr) 30 Mg Tablet) 60 mg PO DAILY [facility] Ondansetron HCl (Ondansetron 2 Mg/Ml Sdv 2 Ml) 4 mg IVP Q6H PRN PRN Reason: NAUSEA AND VOMITING Pantoprazole Sodium (Pantoprazole Dr 40 Mg Tablet) 40 mg PO BID [facility] Last Admin: 04/12/25 17:13 Dose: 40 mg Sertraline HCl (Sertraline 100 Mg Tablet) 200 mg PO DAILY [facility] Trazodone HCl (Trazodone 100 Mg Tablet) 400 mg PO BEDTIME [facility] Last Admin: 04/12/25 22:12 Dose: 400 mg Vitals/I&O/Wt Last Vital Signs Temp 98.2 F 04/13/25 16:00 Pulse 71 04/13/25 16:00 Resp 17 04/13/25 16:00 BP 154/81 04/13/25 16:00 Pulse Ox 91 04/13/25 16:00 O2 Del Method Room Air 04/13/25 16:00 04/13/25 04/13/25 04/13/25 06:59 14:59 22:59 Intake Total 459.083 / 1132.550 644.55 / 644.55 0 / 644.55 Output Total 2800 / 2800 Balance 459.083 / 1132.550 -2155.45 / -2155.45 0 / -2155.45 Weight last 48 hrs Weight 232 lb 12.93 oz Weight 220 lb 14.4 oz Weight 222 lb Weight 222 lb Physical Exam 2 Const: OTHER: GENERAL: Patient is alert, awake and oriented x3. HEART: Regular S1 and S2. No murmur, rub or gallop. LUNGS: Clear to auscultate bilaterally. CENTRAL NERVOUS SYSTEM: Grossly nonfocal. EXTREMITIES: Lower extremities with out edema bilaterally. Data 04/13/25 06:22 04/13/25 06:22 A&P Assessment and plan (1) Arteriosclerotic heart disease (ASHD): (2) Benign essential HTN: (3) Dyslipidemia (high LDL; low HDL): (4) Type 2 diabetes mellitus: (5) ESRD (end stage renal disease) on dialysis: (6) Acute CHF: (7) NSTEMI (non-ST elevated myocardial infarction): Plan Continue diuresis and dialysis Patient appeared to be well compensated Unfortunately due to unavailability of Electrician Technician secondary to technical reason left heart cath cannot be performed until Wednesday. Advised patient to transfer him but he declined since he is stable denies any chest pain no obvious continuing of ischemia we would therefore proceed with conservative management on the left heart cath next Wednesday continue current management Add isosorbide mononitrate PDMP PDMP Reviewed: Not Reviewed Attestations 2 Medical Necessity Statement*: As medicine Coding Level of Care Code Acute Code for Chg Fwd Diagnoses Arteriosclerotic heart disease (ASHD) I25.10 Benign essential HTN I10 Dyslipidemia (high LDL; low HDL) E78.5 Type 2 diabetes mellitus with hypoglycemia without coma, with long-term current use of insulin E11.649; Z79.4 Diabetes mellitus terminal carman insulin use: with terminal carman use Diabetes mellitus complication status: with hypoglycemia Diabetes mellitus complication detail: without coma ESRD (end stage renal disease) on dialysis N18.6; Z99.2 Acute CHF I50.9 NSTEMI (non-ST elevated myocardial infarction) I21.4
--- NOTE | 2025-04-13 19:53 | PC.NURSE ---
This nurse charted that nitrglycerin drip is paused, as per Justine on days the nitroglycerin drip has been off for quite some time.
[2025-04-13 22:15] LABS: Partial Thromboplastin Time 64.1 SECONDS (23.9-36.7)
[2025-04-13] MEDS: heparin drip 25,000 UNIT/500 ML PREMIX 29 UNIT IV (23:27)
[2025-04-14] VITALS (8 sets, daily range): BP systolic 147–169; BP diastolic 74–93; PULSE 73–95; RESP 17–32; TEMP 36.4–36.9; O2SAT 94–98
[2025-04-14 04:19] LABS: Hematocrit 26.1 % (37-53); Hemoglobin 8.20 g/dL (11.27-16.99); Mean Corpuscular HGB Conc 31.4 g/dL (30-55); Mean Corpuscular Hemoglobin 27.0 pg (27-33); Mean Corpuscular Volume 85.9 fl (82-101); Nucleated Red Blood Cells % 0 %; Platelet Count 139 10^3/cmm (157-399); Red Blood Count 3.04 10^6/uL (3.85-5.65); White Blood Count 4.03 10^3/uL (3.29-11.43)
[2025-04-14 04:30] LABS: Partial Thromboplastin Time 69.0 SECONDS (23.9-36.7)
[2025-04-14 04:37] LABS: Alanine Aminotransferase < 5 U/L (0-41); Albumin Level 3.3 g/dL (3.5-5.2); Alkaline Phosphatase 58 U/L (40-130); Anion Gap 14.0 (5-19); Aspartate Amino Transferase 9 U/L (0-40); Blood Urea Nitrogen 13 mg/dL (6-20); Calcium 8.5 mg/dL (8.5-10.5); Carbon Dioxide 28 mmol/L (22-29); Chloride 98 mmol/L (98-107); Creatinine Clr Calc Pharmacy 26.2000; Globulin 2.2 g/dL (1.3-4.6); Glucose 95 mg/dL (65-115); Osmolality Calculated 282 mOsm/kg (285-295); Potassium 4.0 mmol/L (3.5-5.1); Sodium 136 mmol/L (136-145); Total Protein 5.5 g/dL (6.6-8.7)
[2025-04-14] MEDS: FUROsemide 10 mg/mL SDV 10mL 40 MG IVP ×2 (07:54→20:47)
[2025-04-14] MEDS: NIFEdipine ER (24 hr) 30 mg Tablet 60 MG PO (07:55)
--- NOTE | 2025-04-14 14:06 | P.PN_ITS ---
Subjective 2 Subjective: seen today awaiting cath on wednesday pt does not want to be transferred Vitals/I&O/Wt Last Vital Signs Temp 97.6 F 04/14/25 12:00 Pulse 73 04/14/25 12:00 Resp 32 H 04/14/25 12:00 BP 169/93 04/14/25 12:00 Pulse Ox 97 04/14/25 12:00 O2 Del Method Room Air 04/14/25 07:11 04/13/25 04/14/25 04/14/25 22:59 06:59 14:59 Intake Total 613.017 / 1257.567 222.766 / 1480.333 600 / 600 Output Total 600 / 600 Balance 613.017 / -1542.433 222.766 / -1319.667 0 / 0 Weight last 48 hrs Weight 105.233 kg Weight 105.6 kg Weight 100.199 kg Physical Exam 2 Narrative: Undergoing dialysis Const: COMMON NORMALS: patient oriented x3 and alert GENERAL APPEARANCE: c ooperative ORIENTATION/CONSCIOUSNESS: Yes awake HENMT: COMMON NORMALS: oropharynx normal Resp: COMMON NORMALS: normal respiratory effort and clear to auscultation bilaterally AUSCULTATION: clear to auscultation bilaterally Cardio: COMMON NORMALS: regular rhythm, S1 normal heart sound present, S2 normal heart sound present and No murmurs present (Cardio) RHYTHM: regular rhythm HEART SOUNDS: S1 normal heart sound present and S2 normal heart sound present GI: COMMON NORMALS: Normal to inspection, nondistended, normoactive bowel sounds present, Soft to palpation and non-tender PALPATION: Yes Soft to palpation Extremity: COMMON NORMALS: no joint enlargement and no pedal edema Neuro: COMMON NORMALS: patient oriented x3 and moves all extremities S ENSORIUM/ORIENTATION: Yes alert Skin: COMMON NORMALS: no rashes or lesions noted GENERAL SKIN EXAM: no rashes or lesions noted Data 04/14/25 03:50 04/14/25 03:50 Micro: Microbiology 04/14/25 09:05 Occult Blood (FIT) - Final Stool Routine Collection A&P Assessment and plan (1) NSTEMI (non-ST elevated myocardial infarction): Blood pressures overall with improvement down into 120s-130s overnight, although this morning up to 166/93 predialysis. Currently undergoing dialysis. Continue to monitor blood pressures. Continue heparin drip. Monitor for risk of bleeding, monitor blood counts, PTT. Pending echocardiogram results, follow-up. Pending cardiac reassessment. Continue aspirin, Plavix. Continue optimization of volume status and blood pressure control. Nitroglycerin drip. Monitor for risk of hypotension. Reviewed vitals, CBC, PTT, CMP, troponin series. (2) Acute CHF: Hemodialysis today. Does not appear to have had a response to IV diuretic. Monitor intake and output. With interstitial edema on chest x-ray. Dyspnea on exertion. Reviewed nephrology note. Monitor intake output. Monitor electrolytes. Monitor telemetry. (3) Hypertensive urgency: Blood pressures improved overnight after nitroglycerin drip, resumption of home medications. Again with some rise this morning up to 160/93, currently undergoing dialysis. Reassess. Further adjustments depending on blood pressures after dialysis. Assess echocardiogram. Continue antihypertensive agents including hydralazine losartan metoprolol nifedipine. He declined clonidine. (4) Arteriosclerotic heart disease (ASHD): With prior stenting. Continue DAPT (5) ESRD (end stage renal disease) on dialysis: Reviewed intake and output, chemistry, nephrology note. On dialysis MWF via right chest port. Has had fistula malfunction and plans were being made for fistulogram in [place] due to which he has been holding Plavix for a few days. Plan MDD, RODERICK: Continue antidepressants GERD: He is on both PPI and famotidine due to inadequacy of single medication he states due to very bad GERD. Anemia: Has had some dark stools but states he is also on iron. Requested Hemoccult. No BM so far. Diarrhea: So far resolved. States has had bad diarrhea in the preceding 3 days. Requested C. difficile as he reports history of C. difficile. Reported history of diabetes, but on review A1c was normal 04/14/2025 seen today continue mgmt as per plan above awaiting cath on wednesday PDMP PDMP Reviewed: Not Reviewed Attestations 2 Medical Necessity Statement*: plan for cath on wednesday Diagnoses NSTEMI (non-ST elevated myocardial infarction) I21.4 Acute CHF I50.9 Hypertensive urgency I16.0 Arteriosclerotic heart disease (ASHD) I25.10 ESRD (end stage renal disease) on dialysis N18.6; Z99.2
--- NOTE | 2025-04-14 15:07 | PM.PN ---
Subjective Subjective: Admits still some chest pressure had dialysis She is making urine and had good output Medications: Reviewed: Yes Medication Review Details: Current Medications Acetaminophen (Acetaminophen 325 Mg Tablet) 650 mg PO Q6H PRN PRN Reason: Mild/Mod Pain Or Temp >/= 101 Aspirin (Aspirin 81 Mg Ec Tablet) 81 mg PO DAILY [facility] Atorvastatin Calcium (Atorvastatin 40 Mg Tablet) 40 mg PO DAILY [facility] Bupropion HCl (Bupropion Xl (24 Hr) 300 Mg Tablet) 300 mg PO QAM [facility] Last Admin: 04/13/25 05:15 Dose: 300 mg Clopidogrel Bisulfate (Clopidogrel 75 Mg Tablet) 75 mg PO DAILY [facility] Duloxetine HCl (Duloxetine 60 Mg Capsule) 120 mg PO DAILY [facility] Famotidine (Famotidine 20 Mg Tablet) 20 mg PO DAILY [facility] Furosemide (Furosemide 10 Mg/Ml Sdv 10ml) 80 mg IVP Q12H [facility] Last Admin: 04/13/25 00:34 Dose: 80 mg Heparin Sodium (Porcine) (Heparin 5,000 Unit/Ml Inj 1 Ml) 0 unit IVP PRN PRN; Protocol PRN Reason: Heparin Weight Based Protocol -Subsequent Bolus Hydralazine HCl (Hydralazine 50 Mg Tablet) 100 mg PO BID [facility] Last Admin: 04/12/25 17:13 Dose: 100 mg Heparin Sodium/Sodium Chloride (Heparin Drip) 25,000 unit in 500 mls @ 0 mls/hr IV CONT [facility]; Protocol Last Titration: 04/13/25 07:06 Dose: 13.41 unit/kg/hr, 27 mls/hr Nitroglycerin/Dextrose (Nitroglycerin Drip) 50 mg in 250 mls @ 0 mls/hr IV .Q0M [facility]; Protocol Last Titration: 04/12/25 11:49 Dose: 20 mcg/min, 6 mls/hr Losartan Potassium (Losartan 50 Mg Tablet) 100 mg PO DAILY [facility] Metoprolol Tartrate (Metoprolol Tartrate 50 Mg Tablet) 100 mg PO BID [facility] Last Admin: 04/12/25 17:13 Dose: 100 mg Morphine Sulfate (Morphine 4 Mg/Ml Sdv 1 Ml) 2 mg IVP Q4H PRN PRN Reason: SEVERE PAIN Nifedipine (Nifedipine Er (24 Hr) 30 Mg Tablet) 60 mg PO DAILY [facility] Ondansetron HCl (Ondansetron 2 Mg/Ml Sdv 2 Ml) 4 mg IVP Q6H PRN PRN Reason: NAUSEA AND VOMITING Pantoprazole Sodium (Pantoprazole Dr 40 Mg Tablet) 40 mg PO BID [facility] Last Admin: 04/12/25 17:13 Dose: 40 mg Sertraline HCl (Sertraline 100 Mg Tablet) 200 mg PO DAILY [facility] Trazodone HCl (Trazodone 100 Mg Tablet) 400 mg PO BEDTIME [facility] Last Admin: 04/12/25 22:12 Dose: 400 mg Vitals/I&O/Wt Last Vital Signs Temp 97.6 F 04/14/25 12:00 Pulse 74 04/14/25 14:00 Resp 32 H 04/14/25 12:00 BP 169/93 04/14/25 12:00 Pulse Ox 97 04/14/25 12:00 O2 Del Method Room Air 04/14/25 07:11 04/14/25 04/14/25 04/14/25 06:59 14:59 22:59 Intake Total 222.766 / 1480.333 600 / 600 Output Total 600 / 600 Balance 222.766 / -1319.667 0 / 0 Weight last 48 hrs Weight 232 lb Weight 232 lb 12.93 oz Weight 220 lb 14.4 oz Physical Exam Const: OTHER: GENERAL: Patient is alert, awake and oriented x3. HEART: Regular S1 and S2. No murmur, rub or gallop. LUNGS: Clear to auscultate bilaterally. CENTRAL NERVOUS SYSTEM: Grossly nonfocal. EXTREMITIES: Lower extremities with out edema bilaterally. Data 04/14/25 03:50 04/14/25 03:50 Micro: Microbiology 04/14/25 09:05 Occult Blood (FIT) - Final Stool Routine Collection A&P Assessment and plan (1) Arteriosclerotic heart disease (ASHD): (2) Benign essential HTN: (3) Dyslipidemia (high LDL; low HDL): (4) Type 2 diabetes mellitus: (5) ESRD (end stage renal disease) on dialysis: (6) Acute CHF: (7) NSTEMI (non-ST elevated myocardial infarction): Plan Chest pressure is atypical not suggestive of typical coronary artery disease paint, patient had angiogram few months ago with intervention. His chest pressure is different from the previous 1. At this point we will continue IV diuresis and dialysis and reassess him again if chest pain persist may end up left heart cath otherwise we will manage him medically Continue IV diuresis Continue diuretic continue dual antiplatelet therapy Add isosorbide mononitrate Will optimize medication to control blood pressure better PDMP PDMP Reviewed: Not Reviewed Attestations Medical Necessity Statement*: Require continuation of hospitalization for above defined care Coding Level of Care Code Acute Code for Chg Fwd Straight Forward/Low MDM (low) includes number and complexity of problems actively addressed during encounter as documented Diagnoses Arteriosclerotic heart disease (ASHD) I25.10 Benign essential HTN I10 Dyslipidemia (high LDL; low HDL) E78.5 Type 2 diabetes mellitus with hypoglycemia without coma, with long-term current use of insulin E11.649; Z79.4 Diabetes mellitus manager long term care insulin use: with usp use Diabetes mellitus complication status: with hypoglycemia Diabetes mellitus complication detail: without coma ESRD (end stage renal disease) on dialysis N18.6; Z99.2 Acute CHF I50.9 NSTEMI (non-ST elevated myocardial infarction) I21.4
--- NOTE | 2025-04-14 15:46 | ECG_ITS ---
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: : 1970 Requested By: Patricia Monsalve Order Number: [id number] Reading MD: Measurements Intervals [place] Rate: 75 P: 14 SC: 185 QRS: -10 QRSD: 106 T: 51 QT: 437 QTc: 491 Interpretive Statements SINUS RHYTHM POSSIBLE LEFT VENTRICULAR HYPERTROPHY [VOLTAGE CRITERIA PLUS LAE OR QRS WIDENING] NONSPECIFIC ST & T-WAVE ABNORMALITY PROLONGED QT INTERVAL Compared to ECG 04/12/2025 15:35:40 T-wave abnormality now present Prolonged QT interval now present Myocardial infarct finding no longer present [email or web address]
[2025-04-14] MEDS: heparin drip 25,000 UNIT/500 ML PREMIX 29 UNIT IV (16:12)
--- NOTE | 2025-04-14 16:22 | PC.NURSE ---
Provider is updated that patient is having chest pain 4/10. Patient states it is different from the chest pressure, it is more pain and stabbing under my left arm . EKG is done. Provider ordered a trop and Imdur 30mg daily, first one now.
[2025-04-14 16:42] LABS: Partial Thromboplastin Time 61.5 SECONDS (23.9-36.7)
[2025-04-14 16:51] LABS: Troponin T (5th) Once 145 ng/L (0-15)
--- NOTE | 2025-04-14 17:06 | P.PN_ITS ---
Subjective 2 Subjective: no new c/o Medications: Reviewed: Yes Vitals/I&O/Wt Last Vital Signs Temp 97.9 F 04/14/25 15:52 Pulse 79 04/14/25 15:52 Resp 19 H 04/14/25 15:52 BP 147/82 04/14/25 15:52 Pulse Ox 94 04/14/25 15:52 O2 Del Method Room Air 04/14/25 07:11 04/14/25 04/14/25 04/14/25 06:59 14:59 22:59 Intake Total 222.766 / 1480.333 600 / 600 357.184 / 957.184 Output Total 600 / 600 Balance 222.766 / -1319.667 0 / 0 357.184 / 357.184 Weight last 48 hrs Weight 105.233 kg Weight 105.6 kg Weight 100.199 kg Physical Exam 2 Narrative: Patient is comfortable lying down not using any nasal cannula oxygen. Vital signs are now improved. HEENT normocephalic atraumatic. Neck is supple. Lungs dull bases bilaterally. Heart regular without significant rubs or gallops. Abdomen is soft positive bowel sounds. Extremities: Left upper extremity AV fistula with good thrill and bruit. However is not mature to use. Neuro awake alert oriented x 3 moves all extremities. Dialysis access is an rt IJ permacath. Patient was seen and examined with the aid of a nurse using audiovisual equipment. Data 04/14/25 03:50 04/14/25 03:50 Micro: Microbiology 04/14/25 09:05 Occult Blood (FIT) - Final Stool Routine Collection A&P Assessment and plan (1) ESRD (end stage renal disease) on dialysis: . 1. ESRD - HD per MWF schedule 2. Hypertension improving. Lower weight on dialysis 3. . Anemia-we will check iron studies. will start Epogen. 4. chest pain , cards following Patient seen and examined using audiovisual equipment with the aid of a nurse patient consents to telehealth and to hemodialysis. PDMP PDMP Reviewed: Not Reviewed Attestations 2 Medical Necessity Statement*: per oscar Coding Level of Care Code Acute Code for Chg Fwd Diagnoses ESRD (end stage renal disease) on dialysis N18.6; Z99.2
[2025-04-14] MEDS: ondansetron 2 mg/ML SDV 2 mL 4 MG IVP (17:38)
[2025-04-14 18:26] LABS: Troponin 5 2HR 141.9 ng/L (0-15); Troponin 5 2HR Delta -3.1 ABS# (0-10)
[2025-04-14 22:14] LABS: Partial Thromboplastin Time 60.6 SECONDS (23.9-36.7)
[2025-04-14 22:19] LABS: Troponin 5 6HR 143.7 ng/L (0-15); Troponin 5 6HR Delta -1.3 ng/L (0-12)
[2025-04-15] VITALS (17 sets, daily range): BP systolic 141–168; BP diastolic 80–93; PULSE 67–86; RESP 12–22; TEMP 36.4–37.2; O2SAT 90–96
[2025-04-15 04:23] LABS: Hematocrit 22.7 % (37-53); Hemoglobin 7.30 g/dL (11.27-16.99); Mean Corpuscular HGB Conc 32.2 g/dL (30-55); Mean Corpuscular Hemoglobin 26.9 pg (27-33); Mean Corpuscular Volume 83.8 fl (82-101); Nucleated Red Blood Cells % 0 %; Platelet Count 151 10^3/cmm (157-399); Red Blood Count 2.71 10^6/uL (3.85-5.65); White Blood Count 4.53 10^3/uL (3.29-11.43)
[2025-04-15 04:37] LABS: Partial Thromboplastin Time 64.7 SECONDS (23.9-36.7)
[2025-04-15 04:45] LABS: Alanine Aminotransferase < 5 U/L (0-41); Albumin Level 3.1 g/dL (3.5-5.2); Alkaline Phosphatase 53 U/L (40-130); Anion Gap 14.0 (5-19); Aspartate Amino Transferase 10 U/L (0-40); Blood Urea Nitrogen 19 mg/dL (6-20); Calcium 8.3 mg/dL (8.5-10.5); Carbon Dioxide 26 mmol/L (22-29); Chloride 100 mmol/L (98-107); Creatinine Clr Calc Pharmacy 19.7342; Globulin 2.0 g/dL (1.3-4.6); Glucose 104 mg/dL (65-115); Osmolality Calculated 285 mOsm/kg (285-295); Potassium 4.0 mmol/L (3.5-5.1); Sodium 136 mmol/L (136-145); Total Protein 5.1 g/dL (6.6-8.7)
[2025-04-15] MEDS: NIFEdipine ER (24 hr) 30 mg Tablet 60 MG PO (08:18)
[2025-04-15] MEDS: FUROsemide 10 mg/mL SDV 10mL 40 MG IVP ×2 (08:19→21:26)
[2025-04-15] MEDS: heparin drip 25,000 UNIT/500 ML PREMIX 29 UNIT IV (09:37)
--- NOTE | 2025-04-15 10:22 | P.PN_ITS ---
Subjective 2 Subjective: hb 7.30 today with underlying nstemi, plan for 1 unit rbc today denies cp this morning was started on imdur yesterday Vitals/I&O/Wt Last Vital Signs Temp 98.4 F 04/15/25 08:00 Pulse 76 04/15/25 08:00 Resp 22 H 04/15/25 08:00 BP 168/93 04/15/25 08:00 Pulse Ox 94 04/15/25 08:00 O2 Del Method Room Air 04/15/25 08:00 04/14/25 04/15/25 04/15/25 22:59 06:59 14:59 Intake Total 864.117 / 1464.117 598.167 / 2062.284 373.633 / 373.633 Output Total 275 / 875 500 / 500 Balance 589.117 / 589.117 598.167 / 1187.284 -126.367 / -126.367 Weight last 48 hrs Weight 105.233 kg Weight 105.6 kg Physical Exam 2 Const: COMMON NORMALS: patient oriented x3 and alert GENERAL APPEARANCE: c ooperative ORIENTATION/CONSCIOUSNESS: Yes awake Resp: COMMON NORMALS: normal respiratory effort and clear to auscultation bilaterally AUSCULTATION: clear to auscultation bilaterally Cardio: COMMON NORMALS: regular rhythm, S1 normal heart sound present, S2 normal heart sound present and No murmurs present (Cardio) RHYTHM: regular rhythm HEART SOUNDS: S1 normal heart sound present and S2 normal heart sound present GI: COMMON NORMALS: Normal to inspection, nondistended, normoactive bowel sounds present, Soft to palpation and non-tender PALPATION: Yes Soft to palpation Neuro: COMMON NORMALS: patient oriented x3 and moves all extremities S ENSORIUM/ORIENTATION: Yes alert Data 04/15/25 04:20 04/15/25 04:20 Micro: Microbiology 04/14/25 09:05 Occult Blood (FIT) - Final Stool Routine Collection A&P Assessment and plan (1) NSTEMI (non-ST elevated myocardial infarction): Blood pressures overall with improvement down into 120s-130s overnight, although this morning up to 166/93 predialysis. Currently undergoing dialysis. Continue to monitor blood pressures. Continue heparin drip. Monitor for risk of bleeding, monitor blood counts, PTT. Pending echocardiogram results, follow-up. Pending cardiac reassessment. Continue aspirin, Plavix. Continue optimization of volume status and blood pressure control. Nitroglycerin drip. Monitor for risk of hypotension. Reviewed vitals, CBC, PTT, CMP, troponin series. (2) Acute CHF: Hemodialysis today. Does not appear to have had a response to IV diuretic. Monitor intake and output. With interstitial edema on chest x-ray. Dyspnea on exertion. Reviewed nephrology note. Monitor intake output. Monitor electrolytes. Monitor telemetry. (3) Hypertensive urgency: Blood pressures improved overnight after nitroglycerin drip, resumption of home medications. Again with some rise this morning up to 160/93, currently undergoing dialysis. Reassess. Further adjustments depending on blood pressures after dialysis. Assess echocardiogram. Continue antihypertensive agents including hydralazine losartan metoprolol nifedipine. He declined clonidine. (4) Arteriosclerotic heart disease (ASHD): With prior stenting. Continue DAPT (5) ESRD (end stage renal disease) on dialysis: Reviewed intake and output, chemistry, nephrology note. On dialysis MWF via right chest port. Has had fistula malfunction and plans were being made for fistulogram in [place] due to which he has been holding Plavix for a few days. Plan MDD, RODERICK: Continue antidepressants GERD: He is on both PPI and famotidine due to inadequacy of single medication he states due to very bad GERD. Anemia: Has had some dark stools but states he is also on iron. Requested Hemoccult. No BM so far. Diarrhea: So far resolved. States has had bad diarrhea in the preceding 3 days. Requested C. difficile as he reports history of C. difficile. Reported history of diabetes, but on review A1c was normal 04/14/2025 seen today continue mgmt as per plan above awaiting cath on wednesday04/15/2025 seen today continue mgmt as per plan above awaiting cath on wednesday order 1 unit prbc, with underlying nstemi, keep hb > 8 pt on heparin drip per cardiology, will discuss with them. continue imdur 30 daily PDMP PDMP Reviewed: Not Reviewed Attestations 2 Medical Necessity Statement*: plan for cath on wednesday Diagnoses NSTEMI (non-ST elevated myocardial infarction) I21.4 Acute CHF I50.9 Hypertensive urgency I16.0 Arteriosclerotic heart disease (ASHD) I25.10 ESRD (end stage renal disease) on dialysis N18.6; Z99.2
--- NOTE | 2025-04-15 11:11 | P.PN_ITS ---
Subjective 2 Subjective: no new c/o Medications: Reviewed: Yes Vitals/I&O/Wt Last Vital Signs Temp 98.1 F 04/15/25 10:35 Pulse 70 04/15/25 10:35 Resp 12 04/15/25 10:35 BP 157/84 04/15/25 10:35 Pulse Ox 94 04/15/25 10:35 O2 Del Method Room Air 04/15/25 10:35 04/14/25 04/15/25 04/15/25 22:59 06:59 14:59 Intake Total 864.117 / 1464.117 598.167 / 2062.284 373.633 / 373.633 Output Total 275 / 875 500 / 500 Balance 589.117 / 589.117 598.167 / 1187.284 -126.367 / -126.367 Weight last 48 hrs Weight 105.233 kg Weight 105.6 kg Physical Exam 2 Narrative: Patient is comfortable lying down not using any nasal cannula oxygen. Vital signs are now improved. HEENT normocephalic atraumatic. Neck is supple. Lungs dull bases bilaterally. Heart regular without significant rubs or gallops. Abdomen is soft positive bowel sounds. Extremities: Left upper extremity AV fistula with good thrill and bruit. However is not mature to use. Neuro awake alert oriented x 3 moves all extremities. Dialysis access is an rt IJ permacath. Patient was seen and examined with the aid of a nurse using audiovisual equipment. Data 04/15/25 04:20 04/15/25 04:20 Micro: Microbiology 04/14/25 09:05 Occult Blood (FIT) - Final Stool Routine Collection A&P Assessment and plan (1) ESRD (end stage renal disease) on dialysis: . 1. ESRD - HD per MWF schedule , next HD wednesday 2. Hypertension improving. Lower weight on dialysis 3. . Anemia-we will check iron studies. will start Epogen. 4. chest pain , cards following , awaiting [facility] Patient seen and examined using audiovisual equipment with the aid of a nurse patient consents to telehealth and to hemodialysis. PDMP PDMP Reviewed: Not Reviewed Attestations 2 Medical Necessity Statement*: per medicine Coding Level of Care Code Acute Code for Chg Fwd Diagnoses ESRD (end stage renal disease) on dialysis N18.6; Z99.2
--- NOTE | 2025-04-15 14:41 | P.PN_ITS ---
Subjective 2 Subjective: Today patient is feeling much better after getting blood and after diuresis denies any chest pressure Medications: Reviewed: Yes Medication Review Details: Current Medications Acetaminophen (Acetaminophen 325 Mg Tablet) 650 mg PO Q6H PRN PRN Reason: Mild/Mod Pain Or Temp >/= 101 Aspirin (Aspirin 81 Mg Ec Tablet) 81 mg PO DAILY [facility] Atorvastatin Calcium (Atorvastatin 40 Mg Tablet) 40 mg PO DAILY [facility] Bupropion HCl (Bupropion Xl (24 Hr) 300 Mg Tablet) 300 mg PO QAM [facility] Last Admin: 04/13/25 05:15 Dose: 300 mg Clopidogrel Bisulfate (Clopidogrel 75 Mg Tablet) 75 mg PO DAILY [facility] Duloxetine HCl (Duloxetine 60 Mg Capsule) 120 mg PO DAILY [facility] Famotidine (Famotidine 20 Mg Tablet) 20 mg PO DAILY [facility] Furosemide (Furosemide 10 Mg/Ml Sdv 10ml) 80 mg IVP Q12H [facility] Last Admin: 04/13/25 00:34 Dose: 80 mg Heparin Sodium (Porcine) (Heparin 5,000 Unit/Ml Inj 1 Ml) 0 unit IVP PRN PRN; Protocol PRN Reason: Heparin Weight Based Protocol -Subsequent Bolus Hydralazine HCl (Hydralazine 50 Mg Tablet) 100 mg PO BID [facility] Last Admin: 04/12/25 17:13 Dose: 100 mg Heparin Sodium/Sodium Chloride (Heparin Drip) 25,000 unit in 500 mls @ 0 mls/hr IV CONT [facility]; Protocol Last Titration: 04/13/25 07:06 Dose: 13.41 unit/kg/hr, 27 mls/hr Nitroglycerin/Dextrose (Nitroglycerin Drip) 50 mg in 250 mls @ 0 mls/hr IV .Q0M [facility]; Protocol Last Titration: 04/12/25 11:49 Dose: 20 mcg/min, 6 mls/hr Losartan Potassium (Losartan 50 Mg Tablet) 100 mg PO DAILY [facility] Metoprolol Tartrate (Metoprolol Tartrate 50 Mg Tablet) 100 mg PO BID [facility] Last Admin: 04/12/25 17:13 Dose: 100 mg Morphine Sulfate (Morphine 4 Mg/Ml Sdv 1 Ml) 2 mg IVP Q4H PRN PRN Reason: SEVERE PAIN Nifedipine (Nifedipine Er (24 Hr) 30 Mg Tablet) 60 mg PO DAILY [facility] Ondansetron HCl (Ondansetron 2 Mg/Ml Sdv 2 Ml) 4 mg IVP Q6H PRN PRN Reason: NAUSEA AND VOMITING Pantoprazole Sodium (Pantoprazole Dr 40 Mg Tablet) 40 mg PO BID [facility] Last Admin: 04/12/25 17:13 Dose: 40 mg Sertraline HCl (Sertraline 100 Mg Tablet) 200 mg PO DAILY [facility] Trazodone HCl (Trazodone 100 Mg Tablet) 400 mg PO BEDTIME [facility] Last Admin: 04/12/25 22:12 Dose: 400 mg Vitals/I&O/Wt Last Vital Signs Temp 98.4 F 04/15/25 13:45 Pulse 71 04/15/25 14:08 Resp 20 H 04/15/25 14:08 BP 151/85 04/15/25 14:08 Pulse Ox 94 04/15/25 14:08 O2 Del Method Room Air 04/15/25 10:35 04/14/25 04/15/25 04/15/25 22:59 06:59 14:59 Intake Total 864.117 / 1464.117 598.167 / 2062.284 859.150 / 859.150 Output Total 275 / 875 500 / 500 Balance 589.117 / 589.117 598.167 / 1187.284 359.150 / 359.150 Weight last 48 hrs Weight 234 lb Weight 232 lb Physical Exam 2 Const: OTHER: GENERAL: Patient is alert, awake and oriented x3. HEART: Regular S1 and S2. No murmur, rub or gallop. LUNGS: Clear to auscultate bilaterally. CENTRAL NERVOUS SYSTEM: Grossly nonfocal. EXTREMITIES: Lower extremities with out edema bilaterally. Data 04/15/25 04:20 04/15/25 04:20 Micro: Microbiology 04/14/25 09:05 Occult Blood (FIT) - Final Stool Routine Collection A&P Assessment and plan (1) Arteriosclerotic heart disease (ASHD): (2) Benign essential HTN: (3) Dyslipidemia (high LDL; low HDL): (4) Type 2 diabetes mellitus: (5) ESRD (end stage renal disease) on dialysis: (6) Acute CHF: (7) NSTEMI (non-ST elevated myocardial infarction): Plan Chest pressure is atypical not suggestive of typical coronary artery disease paint, patient had angiogram few months ago with intervention. His chest pressure is different from the previous 1. At this point we will continue IV diuresis and dialysis and reassess him again if chest pain persist may end up left heart cath otherwise we will manage him medically Continue IV diuresis Continue diuretic continue dual antiplatelet therapy Add isosorbide mononitrate Will optimize medication to control blood pressure better On today's visit dated 04/15/2025 patient is here for follow-up, patient denies chest pain shortness of breath PND orthopnea. Will continue to monitor tomorrow after dialysis will reassess the patient I think patient chest pressure was secondary due to volume overload status and not ischemic. At this point until unless patient has recurrence of chest pain taking him to [facility] is not on the plan. Added hydralazine for better blood pressure control. PDMP PDMP Reviewed: Not Reviewed Attestations 2 Medical Necessity Statement*: Patient require continuation hospitalization for above defined care. 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
[2025-04-15] MEDS: ondansetron 2 mg/ML SDV 2 mL 4 MG IVP (19:42)
[2025-04-15] MEDS: morphine 4 mg/mL SDV 1 mL 2 MG IVP (19:42)
[2025-04-16] VITALS (7 sets, daily range): BP systolic 150–192; BP diastolic 78–98; PULSE 0–75; RESP 14–27; TEMP 36.6–37.1; O2SAT 90–96
[2025-04-16 04:00] LABS: Hematocrit 27.9 % (37-53); Hemoglobin 9.00 g/dL (11.27-16.99); Mean Corpuscular HGB Conc 32.3 g/dL (30-55); Mean Corpuscular Hemoglobin 27.9 pg (27-33); Mean Corpuscular Volume 86.4 fl (82-101); Nucleated Red Blood Cells % 0 %; Platelet Count 147 10^3/cmm (157-399); Red Blood Count 3.23 10^6/uL (3.85-5.65); White Blood Count 5.32 10^3/uL (3.29-11.43)
[2025-04-16 04:05] LABS: Alanine Aminotransferase 6 U/L (0-41); Albumin Level 3.6 g/dL (3.5-5.2); Alkaline Phosphatase 61 U/L (40-130); Aspartate Amino Transferase 10 U/L (0-40); Blood Urea Nitrogen 29 mg/dL (6-20); Calcium 8.8 mg/dL (8.5-10.5); Carbon Dioxide 24 mmol/L (22-29); Chloride 101 mmol/L (98-107); Creatinine Clr Calc Pharmacy 16.6375; Globulin 2.1 g/dL (1.3-4.6); Glucose 88 mg/dL (65-115); Magnesium 2.1 mg/dL (1.7-2.3); Osmolality Calculated 289 mOsm/kg (285-295); Sodium 137 mmol/L (136-145); Total Protein 5.7 g/dL (6.6-8.7)
[2025-04-16 04:21] LABS: Anion Gap 16.2 (5-19); Potassium 4.2 mmol/L (3.5-5.1)
[2025-04-16] MEDS: NIFEdipine ER (24 hr) 30 mg Tablet 60 MG PO (08:31)
[2025-04-16] MEDS: FUROsemide 10 mg/mL SDV 10mL 40 MG IVP ×2 (08:32→20:07)
--- NOTE | 2025-04-16 09:33 | PC.SOCIAL ---
IMM Update pg 2 of IMM Updated and reviewed w/ patient. Copy provided and copy dated, initialed and placed in chart.
--- NOTE | 2025-04-16 11:50 | P.PN_ITS ---
Subjective 2 Subjective: no new c/o Medications: Reviewed: Yes Vitals/I&O/Wt Last Vital Signs Temp 98.4 F 04/16/25 10:05 Pulse 75 04/16/25 10:05 Resp 18 04/16/25 10:05 BP 192/98 04/16/25 10:05 Pulse Ox 90 04/16/25 03:30 O2 Del Method Room Air 04/16/25 03:30 04/15/25 04/16/25 04/16/25 22:59 06:59 14:59 Intake Total 624.483 / 1483.633 300 / 300 Output Total 200 / 700 3300 / 3300 Balance 424.483 / 783.633 -3000 / -3000 Weight last 48 hrs Weight 102.7 kg Weight 106.594 kg Weight 106.141 kg Physical Exam 2 Narrative: Patient is comfortable lying down not using any nasal cannula oxygen. Vital signs are now improved. HEENT normocephalic atraumatic. Neck is supple. Lungs dull bases bilaterally. Heart regular without significant rubs or gallops. Abdomen is soft positive bowel sounds. Extremities: Left upper extremity AV fistula with good thrill and bruit. However is not mature to use. Neuro awake alert oriented x 3 moves all extremities. Dialysis access is an rt IJ permacath. Patient was seen and examined with the aid of a nurse using audiovisual equipment. Data 04/16/25 02:19 04/16/25 02:19 A&P Assessment and plan (1) ESRD (end stage renal disease) on dialysis: . 1. ESRD - HD per MWF schedule , next HD today 2. Hypertension , BP elevated , increased hydralazine dose 3. . Anemia-we will check iron studies. on Epogen 4. chest pain , cards following , Patient seen and examined using audiovisual equipment with the aid of a nurse patient consents to telehealth and to hemodialysis. PDMP PDMP Reviewed: Not Reviewed Attestations 2 Medical Necessity Statement*: per oscar Coding Level of Care Code Acute Code for Chg Fwd Diagnoses ESRD (end stage renal disease) on dialysis N18.6; Z99.2
--- NOTE | 2025-04-16 13:14 | ECG_ITS ---
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 Measurements Intervals [place] Rate: 73 P: 34 PA: 179 QRS: -18 QRSD: 97 T: -3 QT: 403 QTc: 444 Interpretive Statements SINUS RHYTHM MINIMAL VOLTAGE CRITERIA FOR LVH, CONSIDER NORMAL VARIANT [MEETS CRITERIA IN ONE OF: R(aVL), S(V1), R(V5), R(V5/V6)+S(V1)] SEPTAL MYOCARDIAL INFARCTION , OF INDETERMINATE AGE [40+ ms Q WAVE IN V1/V2] Compared to ECG 04/14/2025 15:46:42 Myocardial infarct finding now present T-wave abnormality no longer present Prolonged QT interval no longer present Electronically Signed On 04-17-2025 08:20:02 CDT by Damaso Rivera M.D. [id number] [id number]
[2025-04-16] MEDS: morphine 4 mg/mL SDV 1 mL 2 MG IVP (13:56)
--- NOTE | 2025-04-16 15:04 | P.PN_ITS ---
Subjective 2 Subjective: He has still been having some chest pain today. Denies any shortness of breath. They discussed with cardiology regarding additional assessment with coronary angiogram tomorrow morning. Vitals/I&O/Wt Last Vital Signs Temp 97.8 F 04/16/25 12:00 Pulse 72 04/16/25 12:00 Resp 27 H 04/16/25 12:00 BP 177/91 04/16/25 12:00 Pulse Ox 96 04/16/25 12:00 O2 Del Method Room Air 04/16/25 03:30 04/16/25 04/16/25 04/16/25 06:59 14:59 22:59 Intake Total 540 / 540 Output Total 3600 / 3600 Balance -3060 / -3060 Weight last 48 hrs Weight 102.7 kg Weight 106.594 kg Weight 106.141 kg Physical Exam 2 Narrative: Accompanied by family. Const: COMMON NORMALS: patient oriented x3 and alert GENERAL APPEARANCE: c ooperative ORIENTATION/CONSCIOUSNESS: Yes awake HENMT: COMMON NORMALS: oropharynx normal Neck/C-Spine: COMMON NORMALS: no JVD Resp: COMMON NORMALS: normal respiratory effort and clear to auscultation bilaterally AUSCULTATION: clear to auscultation bilaterally Cardio: COMMON NORMALS: no JVD, regular rhythm, S1 normal heart sound present, S2 normal heart sound present and No murmurs present (Cardio) RHYTHM: regular rhythm HEART SOUNDS: S1 normal heart sound present and S2 normal heart sound present GI: COMMON NORMALS: Normal to inspection, nondistended, normoactive bowel sounds present, Soft to palpation and non-tender PALPATION: Yes Soft to palpation Extremity: COMMON NORMALS: no joint enlargement and no pedal edema Neuro: COMMON NORMALS: patient oriented x3 and moves all extremities S ENSORIUM/ORIENTATION: Yes alert Skin: COMMON NORMALS: no rashes or lesions noted GENERAL SKIN EXAM: no rashes or lesions noted Data 04/16/25 02:19 04/16/25 02:19 A&P Assessment and plan (1) NSTEMI (non-ST elevated myocardial infarction): Coronary angiogram planned for tomorrow. Still having chest pain. Continue nitroglycerin as needed. Continue morphine IV as needed. Continue aspirin and Plavix, beta-twyla, statin. N.p.o. after midnight. Monitor telemetry. Reviewed vitals, CBC, CMP, magnesium, cardiology, discussed with cardiology. Discussed with nursing and case management. Reviewed echocardiogram results. Noted grade 2 diastolic dysfunction, normal EF. (2) Acute CHF: Hemodialysis today per MWF schedule. Monitor intake and output. With interstitial edema on chest x-ray. Dyspnea on exertion. Reviewed nephrology note. Monitor intake output. Monitor electrolytes. Monitor telemetry. (3) Hypertensive urgency: Overall blood pressures have improved slightly but still with fluctuation and as high as 192/98 this morning. Hydralazine dose has been increased to 50 mg 3 times daily by nephrology. Continue to monitor blood pressures. Blood pressures improved overnight after nitroglycerin drip, resumption of home medications. Again with some rise this morning up to 160/93, currently undergoing dialysis. Reassess. Further adjustments depending on blood pressures after dialysis. Assess echocardiogram. Continue antihypertensive agents including hydralazine losartan metoprolol nifedipine. He declined clonidine. (4) Arteriosclerotic heart disease (ASHD): With prior stenting. Continue DAPT (5) ESRD (end stage renal disease) on dialysis: Reviewed intake and output, chemistry, nephrology note. On dialysis MWF via right chest port. Has had fistula malfunction and plans were being made for fistulogram in [place] due to which he has been holding Plavix for a few days prior to admit. Plan MDD, RODERICK: Continue antidepressants GERD: He is on both PPI and famotidine due to inadequacy of single medication he states due to very bad GERD. Anemia: Has had some dark stools but states he is also on iron. Reviewed Hemoccult, noted positive. Continue pantoprazole 40 mg twice daily. Diarrhea: So far resolved. States has had bad diarrhea in the preceding 3 days. Requested C. difficile as he reports history of C. difficile. Reported history of diabetes, but on review A1c was normal PDMP PDMP Reviewed: Not Reviewed Attestations 2 Medical Necessity Statement*: Continue admission for assessment management of NSTEMI, pending coronary angiography, CHF and gentleman with underlying ESRD. , Moderate MDM includes number and complexity of problems actively addressed during encounter as documented and High MDM includes amount and/or complexity of data reviewed/ordered [ previous or external records, resulted lab(s)/test(s) and other healthcare professional discussion] as documented Diagnoses NSTEMI (non-ST elevated myocardial infarction) I21.4 Acute CHF I50.9 Hypertensive urgency I16.0 Arteriosclerotic heart disease (ASHD) I25.10 ESRD (end stage renal disease) on dialysis N18.6; Z99.2
--- NOTE | 2025-04-16 15:36 | P.PN_ITS ---
<Statement entered by Shantel Flores MD - 04/17/25 21:20> Patient was evaluated and cared for in conjunction with an advanced practice practitioner. I personally examined the patient and reviewed the chart and all pertinent data including imaging, telemetry, and laboratory results. I discussed the patient in detail with the advanced practice practitioner. Please see their note for complete H&P testing result and agreed upon plan of care for the patient. Subjective 2 Subjective: Patient examined around 1 PM, was having chest pain at the time, no ST or T wave changes present on EKG. Will plan for coronary angiogram tomorrow- 599. Vitals/I&O/Wt Last Vital Signs Temp 97.8 F 04/16/25 12:00 Pulse 72 04/16/25 12:00 Resp 27 H 04/16/25 12:00 BP 177/91 04/16/25 12:00 Pulse Ox 96 04/16/25 12:00 O2 Del Method Room Air 04/16/25 03:30 04/16/25 04/16/25 04/16/25 06:59 14:59 22:59 Intake Total 540 / 540 Output Total 3600 / 3600 Balance -3060 / -3060 Weight last 48 hrs Weight 226 lb 6.636 oz Weight 235 lb Weight 234 lb Physical Exam 2 Const: COMMON NORMALS: no acute distress and patient oriented x3 GENERAL APPEARANCE: cooperative and comfortable ORIENTATION/CONSCIOUSNESS: Yes awake, Yes oriented to person, Yes oriented to place and Yes oriented to time Chest: COMMONS NORMALS: normal inspection of the chest and normal palpation of entire chest wall CHEST: Yes Symmetrical chest wall rise Resp: COMMON NORMALS: normal respiratory effort, No retractions, No use of accessory muscles and clear to auscultation bilaterally EFFORT & INSPECTION: Yes symmetric chest movement AUSCULTATION: clear to auscultation bilaterally Cardio: COMMON NORMALS: regular rate, regular rhythm, S1 normal heart sound present, S2 normal heart sound present, No gallops present (Cardio), No clicks present (Cardio), No murmurs present (Cardio) and No rub (Cardio) RATE: r egular rate RHYTHM: regular rhythm HEART SOUNDS: S1 normal heart sound present and S2 normal heart sound present PERIPHERAL PULSES: radial pulses present Extremity: COMMON NORMALS: no pedal edema Neuro: COMMON NORMALS: patient oriented x3 and moves all extremities S ENSORIUM/ORIENTATION: Yes oriented to person, Yes oriented to place and Yes oriented to time Data 04/16/25 02:19 04/16/25 02:19 A&P Assessment and plan (1) Arteriosclerotic heart disease (ASHD): (2) Benign essential HTN: (3) Dyslipidemia (high LDL; low HDL): (4) Type 2 diabetes mellitus: (5) ESRD (end stage renal disease) on dialysis: (6) Acute CHF: (7) NSTEMI (non-ST elevated myocardial infarction): Plan Due to continued chest discomfort after diuresis and blood products, will plan for coronary angiogram tomorrow. Continue Plavix, losartan, metoprolol, nifedipine, aspirin, atorvastatin, isosorbide mononitrate, hydralazine, Lasix. 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
[2025-04-17] VITALS (16 sets, daily range): BP systolic 142–216; BP diastolic 71–102; PULSE 66–77; RESP 14–43; TEMP 36.4–37; O2SAT 92–97
[2025-04-17 02:45] LABS: Hematocrit 29.0 % (37-53); Hemoglobin 9.30 g/dL (11.27-16.99); Mean Corpuscular HGB Conc 32.1 g/dL (30-55); Mean Corpuscular Hemoglobin 27.1 pg (27-33); Mean Corpuscular Volume 84.5 fl (82-101); Nucleated Red Blood Cells % 0 %; Platelet Count 148 10^3/cmm (157-399); Red Blood Count 3.43 10^6/uL (3.85-5.65); White Blood Count 5.34 10^3/uL (3.29-11.43)
[2025-04-17 03:16] LABS: Anion Gap 16.2 (5-19); Blood Urea Nitrogen 26 mg/dL (6-20); Calcium 8.7 mg/dL (8.5-10.5); Carbon Dioxide 25 mmol/L (22-29); Chloride 101 mmol/L (98-107); Creatinine Clr Calc Pharmacy 19.1852; Glucose 95 mg/dL (65-115); Osmolality Calculated 291 mOsm/kg (285-295); Potassium 4.2 mmol/L (3.5-5.1); Sodium 138 mmol/L (136-145)
--- NOTE | 2025-04-17 06:52 | PC.NURSE ---
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
--- NOTE | 2025-04-17 07:09 | W.PM.OPSUD ---
Surgery/Procedure H&P Update DATE OF PROCEDURE: April 17, 2025 DATE H&P PERFORMED: 04/12/25 PREOP DIAGNOSIS: Unstable angina PRIMARY INDICATION FOR PROCEDURE: Worsening of chest pain along with shortness of breath increase in frequency and duration and at rest despite of optimization of medicine blood transfusion Patient with prior history of severe coronary artery disease suggestive of unstable angina PLANNED PROCEDURE: Operation Date: 04/17/25 06:00 Proposed Procedures p Cardiac Catheterization(Not Applicable) - Shantel Flores MD PATIENT REASSESSED PRIOR TO SEDATION, WITH NO CHANGE NOTED: Yes PHYSICAL EXAM: alert, oriented x 3, clear to auscultation bilaterally, regular rate & rhythm and operative site marked AIRWAY EVAL/ANESTHESIA PLAN: ASA II, Risks, benefits & alternatives of sedation and/or procedure discussed and Patient agrees to continue as planned ADDITIONAL INFORMATION: All risk-benefit and alternative for the procedure has been explained to the patient. Patient understand 2% risk of stroke major bleed, patient understand 5% risk of major minor bleeding bruising infection hematoma contrast induced nephropathy, urgent emergent vascular bypass surgery pseudo aneurysm. Patient clearly understood and would like to proceed with it.
--- NOTE | 2025-04-17 08:26 | PM.PROC ---
Procedure Note: Date of procedure: 04/17/25 Pre-procedure diagnosis: Unstable angina, worsening of heart failure Post-procedure diagnosis: same Procedure: Left heart cath was performed due to indication of unstable angina worsening of heart failure and recurrent chest pain Left main: Normal LAD has patent previously placed mid LAD stent left circumflex has mid High-grade stenosis, obtuse marginal 1 has ostial high-grade stenosis Drug-eluting stent to mid left circumflex and balloon angioplasty of abuse marginal 1 drug-eluting stent to the mid circumflex was postdilated with noncompliant balloon. Excellent angiographic result NATALIE-3 flow was noted Continue aspirin statin beta-twyla and Plavix Bedrest for 4 hours CKD: Dialysis as per nephrology Possible discharge tomorrow if stable Coding Level of Care Code Acute Code for [facility]
--- NOTE | 2025-04-17 08:40 | PC.NURSE ---
Patient returned from labor relations supervisor with a right radial TR-band at 0830.
[2025-04-17] MEDS: FUROsemide 10 mg/mL SDV 10mL 40 MG IVP ×2 (08:54→20:15)
[2025-04-17] MEDS: NIFEdipine ER (24 hr) 30 mg Tablet 60 MG PO (08:56)
--- NOTE | 2025-04-17 09:06 | PC.NURSE ---
Sirena Felix NP walked into room as patient returned from industrial laborer. She is updated on the current blood pressure. She said to start with his normal 0900 medications and update her if it doesn't come down.
--- NOTE | 2025-04-17 09:44 | PC.NURSE ---
Dr Talamantes is updated on patient's currently blood pressures since returning from label rewinder. No new orders at this time.
--- NOTE | 2025-04-17 10:08 | P.PN_ITS ---
<Statement entered by Shantel Flores MD - 04/17/25 20:53> Patient was evaluated and cared for in conjunction with an advanced practice practitioner. I personally examined the patient and reviewed the chart and all pertinent data including imaging, telemetry, and laboratory results. I discussed the patient in detail with the advanced practice practitioner. Please see their note for complete H&P testing result and agreed upon plan of care for the patient. Patient underwent left heart catheterization for continuous off-and-on noted to have high-grade mid circumflex and ostial obtuse marginal 1 80-90% stenosis, mid left circumflex was treated with balloon angioplasty followed by drug-eluting stent while ostial and proximal obtuse marginal 1 was treated with balloon angioplasty with excellent angiographic result. Patent previously placed mid LAD stent. GENERAL: Patient is alert, awake and oriented x3. HEART: Regular S1 and S2. No murmur, rub or gallop. LUNGS: Clear to auscultate bilaterally. CENTRAL NERVOUS SYSTEM: Grossly nonfocal. EXTREMITIES: Lower extremities with out edema bilaterally. Assessment and plan Unstable angina Chronic kidney disease on hemodialysis Hypertension Blood pressure not well-controlled we will optimize medication Patient is status post PCI to circumflex and balloon angioplasty diabetes mellitus Continue aspirin and statin beta-twyla Possible discharge tomorrow optimize medication to control blood pressure Subjective 2 Subjective: He underwent left heart cath this morning, had stent to the left circumflex and balloon angioplasty to the obtuse marginal. Blood pressure hypertensive, restarting his scheduled oral medications, will watch carefully for blood pressure to come under control. No complications with right radial cath site, TR band still in place. Vitals/I&O/Wt Last Vital Signs Temp 98.6 F 04/17/25 00:35 Pulse 77 04/17/25 09:40 Resp 16 04/17/25 09:40 BP 209/93 04/17/25 09:40 Pulse Ox 96 04/16/25 16:00 O2 Del Method Room Air 04/16/25 03:30 04/16/25 04/17/25 04/17/25 22:59 06:59 14:59 Intake Total 720 / 1260 0 / 1260 Balance 720 / -2340 0 / -2340 Weight last 48 hrs Weight 226 lb Weight 226 lb 6.636 oz Weight 235 lb Weight 234 lb Physical Exam 2 Const: COMMON NORMALS: no acute distress and patient oriented x3 GENERAL APPEARANCE: cooperative ORIENTATION/CONSCIOUSNESS: Yes awake, Yes oriented to person, Yes oriented to place and Yes oriented to time Chest: COMMONS NORMALS: normal inspection of the chest and normal palpation of entire chest wall CHEST: Yes Symmetrical chest wall rise Resp: COMMON NORMALS: normal respiratory effort, No retractions, No use of accessory muscles and clear to auscultation bilaterally AUSCULTATION: clear to auscultation bilaterally Cardio: COMMON NORMALS: regular rate, regular rhythm, S1 normal heart sound present, S2 normal heart sound present, No gallops present (Cardio), No clicks present (Cardio), No murmurs present (Cardio) and No rub (Cardio) RATE: r egular rate RHYTHM: regular rhythm HEART SOUNDS: S1 normal heart sound present and S2 normal heart sound present PERIPHERAL PULSES: radial pulses present positive right 2+ and femoral pulses present positive right 2+ Neuro: COMMON NORMALS: patient oriented x3 and moves all extremities S ENSORIUM/ORIENTATION: Yes oriented to person, Yes oriented to place and Yes oriented to time Skin: WOUNDS: Yes surgical site (no hematoma palpable) Details: no odor Data 04/17/25 02:17 04/17/25 02:17 A&P Assessment and plan 1. Arteriosclerotic heart disease (ASHD): 2. Benign essential HTN: 3. Dyslipidemia (high LDL; low HDL): 4. Type 2 diabetes mellitus: 5. ESRD (end stage renal disease) on dialysis: 6. NSTEMI (non-ST elevated myocardial infarction): Plan: S/P stents to left circumflex and balloon angioplasty to obtuse marginal, no chest pain currently. Continue Plavix aspirin, atorvastatin, losartan, metoprolol, nifedipine, isosorbide mononitrate, hydralazine, Lasix. PDMP PDMP Reviewed: Not Reviewed Attestations 2 Medical Necessity Statement*: PCI, post-cath care Coding Level of Care Code Acute Code for [facility] Diagnoses Arteriosclerotic heart disease (ASHD) I25.10 Benign essential HTN I10 Dyslipidemia (high LDL; low HDL) E78.5 Type 2 diabetes mellitus E11.9 ESRD (end stage renal disease) on dialysis N18.6; Z99.2 NSTEMI (non-ST elevated myocardial infarction) I21.4
--- NOTE | 2025-04-17 12:53 | PC.NURSE ---
Provider is updated about patients blood pressures are still elevated. Provider ordered to restart home clonidine 0.1mg patch.
--- NOTE | 2025-04-17 15:45 | PC.NURSE ---
Provider is updated on patient's blood pressure. Abimael Cochran his BP is still elevated. Just took and it is 216/102 HR 72 and now he does have a headache. Provider entered order. Patient is also offered tylenol for his headache. Patient refused the tylenol at this time.
[2025-04-17] MEDS: hyDRALAzine 20 mg/mL INJ 1 mL 10 MG IVP (15:51)
[2025-04-17] MEDS: ondansetron 2 mg/ML SDV 2 mL 4 MG IVP (15:51)
--- NOTE | 2025-04-17 18:33 | PC.NURSE ---
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 Air is slowly removed, 2ml's at a time. TR-band is removed and dressing of 2x2 and tegaderm is applied. No hematoma is noted. Patient tolerated well. Patient is reeducated to not use his right wrist/hand for 24 hours. Patient states understanding.
[2025-04-17] MEDS: HYDROcodone-acetaminophen 5-325 mg Tablet 1 TAB PO (20:16)
--- NOTE | 2025-04-17 20:16 | P.PN_ITS ---
Subjective 2 Subjective: Status post coronary angiogram with PCI with stent to left circumflex and balloon angioplasty of obtuse marginal. He is doing well postprocedure. Chest pain has resolved. No difficulty breathing. No issues with access site in the right wrist. Vitals/I&O/Wt Last Vital Signs Temp 97.6 F 04/17/25 11:53 Pulse 73 04/17/25 15:34 Resp 19 H 04/17/25 15:34 BP 157/81 04/17/25 17:31 Pulse Ox 96 04/17/25 15:34 O2 Del Method Room Air 04/17/25 15:34 04/17/25 04/17/25 04/17/25 06:59 14:59 22:59 Intake Total 0 / 1260 600 / 600 120 / 720 Output Total 350 / 350 100 / 450 Balance 0 / -2340 250 / 250 20 / 270 Weight last 48 hrs Weight 102.512 kg Weight 102.7 kg Weight 106.594 kg Physical Exam 2 Narrative: Accompanied by his . Const: COMMON NORMALS: patient oriented x3 and alert GENERAL APPEARANCE: c ooperative ORIENTATION/CONSCIOUSNESS: Yes awake HENMT: COMMON NORMALS: oropharynx normal Neck/C-Spine: COMMON NORMALS: no JVD Resp: COMMON NORMALS: normal respiratory effort and clear to auscultation bilaterally AUSCULTATION: clear to auscultation bilaterally Cardio: COMMON NORMALS: no JVD, regular rhythm, S1 normal heart sound present, S2 normal heart sound present and No murmurs present (Cardio) RHYTHM: regular rhythm HEART SOUNDS: S1 normal heart sound present and S2 normal heart sound present GI: COMMON NORMALS: Normal to inspection, nondistended, normoactive bowel sounds present, Soft to palpation and non-tender PALPATION: Yes Soft to palpation Extremity: COMMON NORMALS: no joint enlargement and no pedal edema OTHER: TR band right wrist. No pulsatile mass or bleeding. Neuro: COMMON NORMALS: patient oriented x3 and moves all extremities S ENSORIUM/ORIENTATION: Yes alert Skin: COMMON NORMALS: no rashes or lesions noted GENERAL SKIN EXAM: no rashes or lesions noted Data 04/17/25 02:17 04/17/25 02:17 A&P Assessment and plan 1. NSTEMI (non-ST elevated myocardial infarction): Coronary angiogram today with stenting of LAD and balloon angioplasty of obtuse marginal. Continue post angiography care. His chest pain has resolved. Monitor telemetry with risk of arrhythmia with reperfusion injury postintervention. Reassess chemistry. . Discussed with him and his importance of continuation of aspirin and Plavix. Continue beta-twyla, statin. Reviewed vitals, CBC, CMP, cardiology notes, discussed with cardiology. Hemoglobin noted 9.3, platelets mildly decreased 148. Recheck blood counts. Discussed with nursing and case management in rounds. Echocardiogram with noted grade 2 diastolic dysfunction, normal EF. 2. Acute CHF: Hemodialysis today per MWF schedule. Monitor intake and output. Currently appears to be volume compensated. Saturating well on room air. On presentation with interstitial edema on chest x-ray. Dyspnea on exertion. Monitor intake output. Monitor electrolytes. Monitor telemetry. Recheck chemistry. 3. Hypertensive urgency: Continue hydralazine at increased dose to 50 mg 3 times daily by nephrology. Continue to monitor blood pressures. Blood pressures improved overnight after nitroglycerin drip, resumption of home medications. Again with some rise this morning up to 160/93, currently undergoing dialysis. Reassess. Further adjustments depending on blood pressures after dialysis. Assess echocardiogram. Continue antihypertensive agents including hydralazine losartan metoprolol nifedipine. He declined clonidine. 4. Arteriosclerotic heart disease (ASHD): With prior stenting. Continue DAPT 5. ESRD (end stage renal disease) on dialysis: Reviewed intake and output, chemistry. On dialysis MWF via right chest port. Has had fistula malfunction and plans were being made for fistulogram in [place] due to which he has been holding Plavix for a few days prior to admit. Plan: MDD, RODERICK: Continue antidepressants GERD: He is on both PPI and famotidine due to inadequacy of single medication he states due to very bad GERD. Anemia: Has had some dark stools but states he is also on iron. Reviewed Hemoccult, noted positive. Continue pantoprazole 40 mg twice daily. Reviewed hemoglobin, so far stable 9.3. Recheck blood counts. Diarrhea: So far resolved. States has had bad diarrhea in the preceding 3 days. Requested C. difficile as he reports history of C. difficile. So far has not had diarrhea to send a sample. Reported history of diabetes, but on review A1c was normal PDMP PDMP Reviewed: Not Reviewed Attestations 2 Medical Necessity Statement*: Continue admission for assessment management after NSTEMI and coronary intervention, CHF and gentleman with underlying ESRD. Diagnoses NSTEMI (non-ST elevated myocardial infarction) I21.4 Acute CHF I50.9 Hypertensive urgency I16.0 Arteriosclerotic heart disease (ASHD) I25.10 ESRD (end stage renal disease) on dialysis N18.6; Z99.2
--- NOTE | 2025-04-17 20:51 | P.PN_ITS ---
Subjective 2 Subjective: no new c/o Medications: Reviewed: Yes Vitals/I&O/Wt Last Vital Signs Temp 98.4 F 04/17/25 20:33 Pulse 73 04/17/25 20:33 Resp 16 04/17/25 20:33 BP 164/83 04/17/25 20:33 Pulse Ox 94 04/17/25 20:33 O2 Del Method Room Air 04/17/25 20:33 04/17/25 04/17/25 04/17/25 06:59 14:59 22:59 Intake Total 0 / 1260 600 / 600 1120 / 1720 Output Total 350 / 350 325 / 675 Balance 0 / -2340 250 / 250 795 / 1045 Weight last 48 hrs Weight 102.512 kg Weight 102.7 kg Weight 106.594 kg Physical Exam 2 Narrative: Patient is comfortable lying down not using any nasal cannula oxygen. Vital signs are now improved. HEENT normocephalic atraumatic. Neck is supple. Lungs dull bases bilaterally. Heart regular without significant rubs or gallops. Abdomen is soft positive bowel sounds. Extremities: Left upper extremity AV fistula with good thrill and bruit. However is not mature to use. Neuro awake alert oriented x 3 moves all extremities. Dialysis access is an rt IJ permacath. Patient was seen and examined with the aid of a nurse using audiovisual equipment. Data 04/17/25 02:17 04/17/25 02:17 A&P Assessment and plan 1. ESRD (end stage renal disease) on dialysis: . 1. ESRD - HD per MWF schedule , next HD tomorrow 2. Hypertension , BP elevated ,adjust meds 3. . Anemia-we will check iron studies. on Epogen 4. chest pain , cards following ,/p LHC and LAD stent Patient seen and examined using audiovisual equipment with the aid of a nurse patient consents to telehealth and to hemodialysis. PDMP PDMP Reviewed: Not Reviewed Attestations 2 Medical Necessity Statement*: per medicine Coding Level of Care Code Acute Code for [facility] Diagnoses ESRD (end stage renal disease) on dialysis N18.6; Z99.2
[2025-04-17] MEDS: morphine 4 mg/mL SDV 1 mL 2 MG IVP (22:46)
[2025-04-18] VITALS (8 sets, daily range): BP systolic 140–171; BP diastolic 77–91; PULSE 62–74; RESP 12–20; TEMP 36.6–36.8; O2SAT 91–97
[2025-04-18 02:47] LABS: Hematocrit 28.4 % (37-53); Hemoglobin 9.10 g/dL (11.27-16.99); Mean Corpuscular HGB Conc 32.0 g/dL (30-55); Mean Corpuscular Hemoglobin 27.6 pg (27-33); Mean Corpuscular Volume 86.1 fl (82-101); Nucleated Red Blood Cells % 0 %; Platelet Count 145 10^3/cmm (157-399); Red Blood Count 3.30 10^6/uL (3.85-5.65); White Blood Count 5.14 10^3/uL (3.29-11.43)
[2025-04-18 03:05] LABS: Anion Gap 18.6 (5-19); Blood Urea Nitrogen 35 mg/dL (6-20); Calcium 8.6 mg/dL (8.5-10.5); Carbon Dioxide 21 mmol/L (22-29); Chloride 98 mmol/L (98-107); Creatinine Clr Calc Pharmacy 16.1137; Glucose 101 mg/dL (65-115); Osmolality Calculated 284 mOsm/kg (285-295); Potassium 4.6 mmol/L (3.5-5.1); Sodium 133 mmol/L (136-145)
[2025-04-18] MEDS: FUROsemide 10 mg/mL SDV 10mL 40 MG IVP (08:29)
[2025-04-18] MEDS: NIFEdipine ER (24 hr) 30 mg Tablet 60 MG PO (08:30)
[2025-04-18 09:16] LABS: Iron 37 ug/dL (59-158); Thyroid Stimulating Hormone 4.87 uIU/mL (0.27-4.20); Total Iron Binding Capacity 152 mcg/dl; Unsaturated Iron Binding 115 ug/dL (112-347); Vitamin B12 412 pg/mL (232-1245)
--- NOTE | 2025-04-18 09:20 | PC.NURSE ---
Patient left [facility] for dialysis at 0920.
--- NOTE | 2025-04-18 10:48 | P.DS_ITS ---
Discharge Providers Date of Admission: 04/12/25 10:31 Date of Discharge: April 18, 2025 Attending Provider at Admission: Anthony Talamantes Attending Provider at Discharge: Brandon Nguyen MD Primary Care Provider: ALONDRA Caldera Diagnoses at Discharge Discharge Diagnosis 1. ESRD (end stage renal disease) on dialysis: Reason for Visit Reason for Visit: cp, sent from [facility] Brief History: History as per HPI: Abimael Cochran is a 54 year old patient with a history of diabetes mellitus, hypertension, hyperlipidemia, obesity, major depressive disorder, generalized anxiety disorder, peripheral neuropathy, chronic kidney disease on Wednesday/Wednesday/Wednesday hemodialysis, prior stroke, and known coronary artery disease status post mid-LAD stent placement (July) who presented to the emergency department for chest pain that started around 6 PM last night. The pain occurred both at rest and with exertion and was associated with diaphoresis and dyspnea. In the ED vital signs showed BP up to 186/91 mmHg, HR 78 bpm, RR 16, and SpO? 91?96 % on room air. Laboratory evaluation revealed normal WBC, chr onic anemia with Hgb 8.8 g/dL, mild thrombocytopenia (139 K/?L), creatinine 3.9 mg/dL, and an elevated troponin (exact value not documented). Chest X-ray demonstrated cardiomegaly and possible bilateral pleural effusions with interstitial edema. Treatment in the ED included aspirin, initiation of a heparin infusion, nitroglycerin, IV furosemide 80 mg, and morphine, after which the chest discomfort eased. The patient reports several days of non-adherence to Plavix due to an upcoming fistula procedure. Additional complaints include chronic severe heartburn, intermittent nausea with dry heaves, watery diarrhea, and previously dark stools while on iron therapy; no vomiting, fever, chills, cough, or leg swelling were reported. GI history includes GERD treated with metoclopramide and a proton pump inhibitor, and prior gastric sleeve surgery. Cardiology has been consulted; nephrology consultation is planned. No recent echocardiogram has been performed. Hospital Course Hospital Course Patient was admitted to the hospital for further evaluation and management of chest pain with concerns for non-ST elevation OH and congestive heart failure in setting of hypertensive urgency. Patient had been off his Plavix recently as per the direction from a vascular surgeon given requirement of fistulogram for faulty fistula. He has been getting dialysis through tunneled cath prior to admission. During hospitalization he was found to have non-ST elevation OH and was started on heparin drip. Cardiology and nephrology was consulted. He continued to get dialysis as per his dialysis schedule. Eventually because of ongoing chest pain he underwent cardiac angiogram which showed patent previously placed mid LAD stent, LCx having mid high-grade stenosis, obtuse marginal 1 having high-grade stenosis. He underwent PCI with SAKSHI to mid LCx and balloon angioplasty of obtuse marginal. Patient tolerated the procedure well and has been chest pain-free PCI. During hospitalization his antihypertensives were adjusted after which his blood pressures are better controlled. He has been discharged in hemodynamically stable condition with advised to continue with aspirin and Plavix for at least 6 months. She is to continue to get his dialysis as an outpatient through tunneled cath. He will follow-up with vascular surgeon as an outpatient for further fistulogram. Discharge was delayed as patient was getting dialysis prior to going home. Physical Exam Narrative: Accompanied by his . Const: COMMON NORMALS: patient oriented x3 and alert GENERAL APPEARANCE: cooperative ORIENTATION/CONSCIOUSNESS: Yes awake HENMT: COMMON NORMALS: oropharynx normal Neck/C-Spine: COMMON NORMALS: no JVD Resp: COMMON NORMALS: normal respiratory effort and clear to auscultation bilaterally AUSCULTATION: clear to auscultation bilaterally Cardio: COMMON NORMALS: no JVD, regular rhythm, S1 normal heart sound present, S2 normal heart sound present and No murmurs present (Cardio) RHYTHM: regular rhythm HEART SOUNDS: S1 normal heart sound present and S2 normal heart sound present GI: COMMON NORMALS: Normal to inspection, nondistended, normoactive bowel sounds present, Soft to palpation and non-tender PALPATION: Yes Soft to palpation Extremity: COMMON NORMALS: no joint enlargement and no pedal edema OTHER: TR band right wrist. No pulsatile mass or bleeding. Neuro: COMMON NORMALS: patient oriented x3 and moves all extremities SENSORIUM/ORIENTATION: Yes alert Skin: COMMON NORMALS: no rashes or lesions noted GENERAL SKIN EXAM: no rashes or lesions noted Discharge Data Studies Completed and Pending Completed Studies During Hospitalization Category Date Time Status XR chest 1V portable [id number] Stat Exams 04/12/25 09:13 Completed CV. 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 There may be interstitial edema in both lower lungs. As clinically warranted rep eat chest x-ray with removal of all of the overlying artifact. Echocardiogram: CONCLUSIONS Normal left ventricular size, systolic function and wall thickness, with no regional wall motion abnormalities. Left ventricular ejection fraction is estimated at 55 %. Grade II/IV diastolic dysfunction, moderately elevated filling pressures. Moderate aortic valve calcification. Mild aortic valve stenosis, mean gradient 4.8 mmHg, JANETTE 2.7 cm squared. Trace aortic valve regurgitation. Mild tricuspid valve regurgitation. There is no pericardial effusion. Right atrial pressure is around 5 mm of mercury. Shantel Flores MD (Electronically Signed) Final Date: 13 April 2025 Microbiology 04/14/25 09:05 Stool Routine Collection Occult Blood (FIT) - Final Laboratory Results WBC 5.14 10^3/uL (3.29-11.43) 04/18/25 02:34 RBC 3.30 10^6/uL (3.85-5.65) L 04/18/25 02:34 Hgb 9.10 g/dL (11.27-16.99) L 04/18/25 02:34 Hct 28.4 % (37-53) L 04/18/25 02:34 MCV 86.1 fl (82-101) 04/18/25 02:34 MCH 27.6 pg (27-33) 04/18/25 02:34 MCHC 32.0 g/dL (30-55) 04/18/25 02:34 RDW 15.5 % (12.1-15.1) H 04/18/25 02:34 Plt Count 145 10^3/cmm (157-399) L 04/18/25 02:34 MPV 10.2 fL (7.4-10.4) 04/18/25 02:34 Neut % (Auto) 68.9 % 04/18/25 02:34 Lymph % (Auto) 16.7 % 04/18/25 02:34 [place] % (Auto) 9.7 % 04/18/25 02:34 Eos % (Auto) 3.3 % 04/18/25 02:34 Baso % (Auto) 1.2 % 04/18/25 02:34 Neut # (Auto) 3.54 10^3/uL (1.8-7.7) 04/18/25 02:34 Lymph # (Auto) 0.9 10^3/uL (0.8-4.8) 04/18/25 02:34 [place] # (Auto) 0.5 10^3/uL (0.2-0.9) 04/18/25 02:34 Eos # (Auto) 0.2 10^3/uL (0.0-0.8) 04/18/25 02:34 Baso # (Auto) 0.1 10^3/uL (0.0-0.1) 04/18/25 02:34 Nucleated RBC % (auto) 0 % 04/18/25 02:34 Nucleated RBCs # 0.0 /100WBC 04/18/25 02:34 APTT 64.7 SECONDS (23.9-36.7) H 04/15/25 04:20 Sodium 133 mmol/L (136-145) L 04/18/25 02:34 Potassium 4.6 mmol/L (3.5-5.1) 04/18/25 02:34 Chloride 98 mmol/L (98-107) 04/18/25 02:34 Carbon Dioxide 21 mmol/L (22-29) L 04/18/25 02:34 Anion Gap 18.6 (5-19) 04/18/25 02:34 BUN 35 mg/dL (6-20) H 04/18/25 02:34 Creatinine 6.9 mg/dL (0.7-1.2) H* 04/18/25 02:34 GFR Calculation 8.4 mL/min (90-130) L 04/18/25 02:34 Glucose 101 mg/dL (65-115) 04/18/25 02:34 Calculated Osmolality 284 mOsm/kg (285-295) L 04/18/25 02:34 Uric Acid 2.5 mg/dL (3.4-7.0) L 04/12/25 09:37 Calcium 8.6 mg/dL (8.5-10.5) 04/18/25 02:34 Phosphorus 2.5 mg/dL (2.5-4.5) 04/15/25 04:20 Magnesium 2.1 mg/dL (1.7-2.3) 04/16/25 02:19 Iron 37 ug/dL (59-158) L 04/18/25 02:34 TIBC 152 mcg/dl 04/18/25 02:34 % Saturation 24.3 % (20-50) 04/18/25 02:34 Unsat Iron Binding 115 ug/dL (112-347) 04/18/25 02:34 Ferritin 545 ng/mL (30-400) H 04/13/25 06:22 Total Bilirubin 0.4 mg/dL (0.15-1.2) 04/16/25 02:19 AST 10 U/L (0-40) 04/16/25 02:19 ALT 6 U/L (0-41) 04/16/25 02:19 Alkaline Phosphatase 61 U/L (40-130) 04/16/25 02:19 Troponin T 5th Gen ng/L 145 ng/L (0-15) H* 04/14/25 16:05 Troponin T Baseline 124 ng/L (0-15) H* 04/12/25 09:37 Troponin T 120 Minute 141.9 ng/L (0-15) H 04/14/25 17:54 Delta Troponin T -3.1 ABS# (0-10) L 04/14/25 17:54 Troponin T Hi Sens 6Hr 143.7 ng/L (0-15) H 04/14/25 21:54 Troponin T Hi Sens 6Hr Delta -1.3 ng/L (0-12) L 04/14/25 21:54 Total Protein 5.7 g/dL (6.6-8.7) L 04/16/25 02:19 Albumin 3.6 g/dL (3.5-5.2) 04/16/25 02:19 Globulin 2.1 g/dL (1.3-4.6) 04/16/25 02:19 Vitamin B12 412 pg/mL (232-1245) 04/18/25 02:34 25-OH Vitamin D Total 21 ng/mL (30-100) L 04/13/25 06:22 TSH 4.87 uIU/mL (0.27-4.20) H 04/18/25 02:34 PTH Intact 31.5 pg/mL (15-65) 04/13/25 06:22 Calcium (PTH Intact) 8.2 mg/dL (8.5-10.5) L 04/13/25 06:22 C. difficile (PCR) Cancelled 04/14/25 09:05 Hep Bs Antigen Non-reactive (Nonreactive) 04/12/25 09:37 Hep Bs Antibody 85.8 (11.5-1000) 04/12/25 09:37 Hepatitis C Antibody Non-reactive (Nonreactive) 04/12/25 09:37 Blood Type A Negative 04/15/25 09:09 Rho(D) Type Rh negative 04/15/25 09:09 Antibody Screen Negative 04/15/25 09:09 Crossmatch See Detail 04/15/25 09:09 Vitals Last Vital Signs Temp 98.2 F 04/18/25 09:39 Pulse 70 04/18/25 09:39 Resp 16 04/18/25 09:39 BP 167/80 04/18/25 09:39 Pulse Ox 97 04/18/25 07:33 O2 Del Method Room Air 04/18/25 07:33 Discharge Plan Discharge Patient Disposition: Home Condition: Stable Prescriptions: New sucralfate [Carafate] 1 gram tablet 1 g PO TID 28 Days Qty: 84 0RF isosorbide mononitrate 30 mg Tablet Extended Release 24 Hr 30 mg PO BIDWM Qty: 60 0RF nitroglycerin 0.4 mg Tablet, Sublingual 0.4 mg sublingual Q5M PRN (Reason: Chest Pain) Qty: 20 0RF Continued atorvastatin 40 mg tablet 40 mg PO DAILY tamsulosin [Flomax] 0.4 mg capsule 0.4 mg PO DAILY losartan 100 mg tablet 100 mg PO DAILY 30 Days Qty: 30 5RF bumetanide 0.5 mg tablet 0.5 mg PO DAILY Rx Instructions: On non-dialysis days. megestrol 400 mg/10 mL (40 mg/mL) suspension 10 mg PO DAILY (DME) Hinged Knee Brace See Rx Instructions .Route .MEDSUPPLY Qty: 1 0RF Rx Instructions: As directed buspirone 10 mg tablet 10 mg PO BID Qty: 60 11RF duloxetine 60 mg capsule,delayed release(DR/EC) 120 mg PO DAILY Qty: 60 11RF sertraline [Zoloft] 100 mg tablet 200 mg PO DAILY Qty: 60 11RF trazodone 100 mg tablet 400 mg PO .HS PRN (Reason: insomnia) Qty: 120 11RF clonidine 0.1 mg/24 hr patch weekly 1 patch transdermal .Weekly bupropion HCl [Wellbutrin XL] 300 mg tablet extended release 24 hr 300 mg PO QAM Qty: 30 11RF pantoprazole [Protonix] 40 mg tablet,delayed release (DR/EC) 40 mg PO BID 30 Days Qty: 60 3RF clopidogrel [Plavix] 75 mg tablet 75 mg PO DAILY 90 Days Qty: 90 3RF aspirin 81 mg Tablet,Delayed Release (Dr/Ec) 81 mg PO DAILY hydralazine 100 mg tablet 100 mg PO BID terazosin 5 mg capsule 5 mg PO DAILY metoprolol tartrate 100 mg tablet 100 mg PO BID nifedipine 60 mg tablet extended release 24hr 60 mg PO DAILY Discontinued famotidine 20 mg tablet 20 mg PO DAILY torsemide 10 mg tablet 10 mg PO .NONDIALYSISDAYS Discharge Order = DC NOW: Discharge Order (Routine); Ordered 04/18/25 Ordered By: Brandon Nguyen Referrals: Kelsie Higuera NP [Nurse Practitioner, Cardiology] - 04/25/25 1:00 pm Funmilayo Horne FNP [Primary Care Provider, Nurse Practitioner] - 04/20/25 9:30 am Discharge Diet: Cardiac Discharge Activity: Resume usual activity and Increase activity as tolerated Patient Instructions: Coronary Angioplasty (DC), CHF Stoplight, Opioid Safety, Post Angiogram Home Care Instructions, Patient Portal & [place] Instructions Activity Restrictions/Additional Instructions: Follow-up with primary care provider within next 1 week. Repeat hemoglobin in 1 month. Please continue taking your aspirin and Plavix as before. Continue dialysis through tunneled HD catheter. Follow-up with your vascular surgeon as an outpatient for fistulogram. Discharge Attestations Time Spent in Discharge Care*: greater than 30 min Specific Discharge Activities: educating patient, educating and/or supporting family/caregiver, discussing with pcp/other providers, discussing with behavioral health case manager/social workers/dc planners, documenting/other paperwork and evaluating patient/reviewing data Status at Discharge: Cognitive status at discharge: cognitively intact , Behavioral status at discharge: cooperative , Functional status at discharge: independent ambulation , Overall status at discharge: patient is back to baseline Quality Metrics Clinical Quality Measures [ No reported AMI, CVA or VTE this stay] Coding Level of Care Code 60181 Total time (in minutes) for Discharge: 65 Diagnoses ESRD (end stage renal disease) on dialysis N18.6; Z99.2
--- NOTE | 2025-04-18 10:55 | P.PN_ITS ---
Subjective 2 Subjective: getting HD Medications: Reviewed: Yes Vitals/I&O/Wt Last Vital Signs Temp 98.2 F 04/18/25 09:39 Pulse 70 04/18/25 09:39 Resp 16 04/18/25 09:39 BP 167/80 04/18/25 09:39 Pulse Ox 97 04/18/25 07:33 O2 Del Method Room Air 04/18/25 07:33 04/17/25 04/18/25 04/18/25 22:59 06:59 14:59 Intake Total 1360 / 1960 240 / 2200 360 / 360 Output Total 325 / 675 375 / 375 Balance 1035 / 1285 240 / 1525 -15 / -15 Weight last 48 hrs Weight 102.512 kg Physical Exam 2 Narrative: Patient is comfortable lying down not using any nasal cannula oxygen. Vital signs are now improved. HEENT normocephalic atraumatic. Neck is supple. Lungs dull bases bilaterally. Heart regular without significant rubs or gallops. Abdomen is soft positive bowel sounds. Extremities: Left upper extremity AV fistula with good thrill and bruit. However is not mature to use. Neuro awake alert oriented x 3 moves all extremities. Dialysis access is an rt IJ permacath. Patient was seen and examined with the aid of a nurse using audiovisual equipment. Data 04/18/25 02:34 04/18/25 02:34 A&P Assessment and plan 1. ESRD (end stage renal disease) on dialysis: . 1. ESRD - HD per MWF schedule , next HD toDAY 2. Hypertension , BP elevated ,adjust meds 3. . Anemia-we will check iron studies. on Epogen 4. chest pain , cards following ,/p LHC and LAD stent Patient seen and examined using audiovisual equipment with the aid of a nurse patient consents to telehealth and to hemodialysis. PDMP PDMP Reviewed: Not Reviewed Attestations 2 Medical Necessity Statement*: per medicine Coding Level of Care Code Acute Code for Chg Fwd Diagnoses ESRD (end stage renal disease) on dialysis N18.6; Z99.2
--- NOTE | 2025-04-18 11:01 | P.PN_ITS ---
<Statement entered by Damaso Rivera M.D - 04/22/25 13:35> Patient was cared for in conjunction with an advanced practice practitioner.? I reviewed the chart and all pertinent data including imaging, telemetry, and laboratory results.? I discussed the patient in detail with the advanced practice practitioner.? Please see their note for complete progress note, testing results and agreed upon plan of care for the patient. Subjective 2 Subjective: He has done well overnight, no chest pain or shortness of breath this morning. Status post stent to the mid left circumflex and balloon angioplasty of the obtuse marginal 1 yesterday. No complications with right radial cath site. Vitals/I&O/Wt Last Vital Signs Temp 98.2 F 04/18/25 09:39 Pulse 70 04/18/25 09:39 Resp 16 04/18/25 09:39 BP 167/80 04/18/25 09:39 Pulse Ox 97 04/18/25 07:33 O2 Del Method Room Air 04/18/25 07:33 04/17/25 04/18/25 04/18/25 22:59 06:59 14:59 Intake Total 1360 / 2200 240 / 2200 360 / 360 Output Total 325 / 675 375 / 375 Balance 1035 / 1525 240 / 1525 -15 / -15 Weight last 48 hrs Weight 226 lb Physical Exam 2 Const: COMMON NORMALS: no acute distress and patient oriented x3 GENERAL APPEARANCE: cooperative ORIENTATION/CONSCIOUSNESS: Yes awake, Yes oriented to person, Yes oriented to place and Yes oriented to time Chest: COMMONS NORMALS: normal inspection of the chest and normal palpation of entire chest wall CHEST: Yes Symmetrical chest wall rise Resp: COMMON NORMALS: normal respiratory effort, No retractions, No use of accessory muscles and clear to auscultation bilaterally AUSCULTATION: clear to auscultation bilaterally Cardio: COMMON NORMALS: regular rate, regular rhythm, S1 normal heart sound present, S2 normal heart sound present, No gallops present (Cardio), No clicks present (Cardio), No murmurs present (Cardio) and No rub (Cardio) RATE: r egular rate RHYTHM: regular rhythm HEART SOUNDS: S1 normal heart sound present and S2 normal heart sound present PERIPHERAL PULSES: radial pulses present positive right 2+ and femoral pulses present positive right 2+ Neuro: COMMON NORMALS: patient oriented x3 and moves all extremities S ENSORIUM/ORIENTATION: Yes oriented to person, Yes oriented to place and Yes oriented to time Skin: WOUNDS: Yes surgical site (no hematoma palpable) Details: no odor Data 04/18/25 02:34 04/18/25 02:34 A&P Assessment and plan 1. Arteriosclerotic heart disease (ASHD): 2. Benign essential HTN: 3. Dyslipidemia (high LDL; low HDL): 4. Type 2 diabetes mellitus: 5. ESRD (end stage renal disease) on dialysis: 6. NSTEMI (non-ST elevated myocardial infarction): Plan: He is doing well post cath. Plan is to discharge to home after dialysis session today. Continue aspirin, Plavix, atorvastatin, losartan, metoprolol, nifedipine, isosorbide mononitrate, hydralazine, Lasix. Follow-up with cardiology clinic in 2 weeks. PDMP PDMP Reviewed: Not Reviewed Attestations 2 Medical Necessity Statement*: Plan to discharge home Coding Level of Care Code Acute Code for [facility] Diagnoses Arteriosclerotic heart disease (ASHD) I25.10 Benign essential HTN I10 Dyslipidemia (high LDL; low HDL) E78.5 Type 2 diabetes mellitus E11.9 ESRD (end stage renal disease) on dialysis N18.6; Z99.2 NSTEMI (non-ST elevated myocardial infarction) I21.4
[2025-04-18 11:20] LABS: Cholesterol 104 mg/dL (0-200); HDL Cholesterol 29 mg/dL (60-100); Triglycerides 70 mg/dL (0-150); VLDL Cholestrol Calculation 14 mg/dL (0-30)
--- NOTE | 2025-04-18 12:25 | PC.SOCIAL ---
IMM Update pg 2 of IMM Updated and reviewed w/ patient. Copy provided and copy dated, initialed and placed in chart.
== END 2025-04-18 14:05 | disposition home or self-care (01) | DRG 321 ==
LOC: ER 09:30 → CSU 10:31
PROVIDERS: Internal Medicine; Internal Medicine Cardiovascular Disease; Internal Medicine Nephrology; Admitting Provider Internal Medicine; Emergency Provider Family Medicine; PCP Nurse Practitioner Family; Visit Provider Student in an Organized Health Care Education/Training Program
PROC: 027034Z Dilation of Coronary Artery, One Artery with Drug-eluting Intraluminal Device, Percutaneous Approach (ICD-10-PCS; principal; 2025-04-17 06:00)
PROC: 027034Z Dilation of Coronary Artery, One Artery with Drug-eluting Intraluminal Device, Percutaneous Approach (ICD-10-PCS; 2025-04-17 06:00)
DX: I21.4 Non-ST elevation (NSTEMI) myocardial infarction (principal); I50.23 Acute on chronic systolic (congestive) heart failure; N18.6 End stage renal disease; I13.2 Hypertensive heart and chronic kidney disease with heart failure and with stage 5 chronic kidney disease, or end stage renal disease; F33.2 Major depressive disorder, recurrent severe without psychotic features; E11.42 Type 2 diabetes mellitus with diabetic polyneuropathy; E11.22 Type 2 diabetes mellitus with diabetic chronic kidney disease; Z99.2 Dependence on renal dialysis; E78.5 Hyperlipidemia, unspecified; E66.9 Obesity, unspecified; Z68.27 Body mass index [BMI] 27.0-27.9, adult; F41.1 Generalized anxiety disorder; Z86.73 Personal history of transient ischemic attack (TIA), and cerebral infarction without residual deficits; D63.1 Anemia in chronic kidney disease; Z79.02 Long term (current) use of antithrombotics/antiplatelets; Z79.4 Long term (current) use of insulin; Z90.3 Acquired absence of stomach [part of]; Z79.82 Long term (current) use of aspirin; I16.0 Hypertensive urgency; I25.10 Atherosclerotic heart disease of native coronary artery without angina pectoris; Z95.5 Presence of coronary angioplasty implant and graft
CPT/HCPCS: 36415; 36430; 71045; 80048; 80053; 80061; 82274; 82306; 82310; 82607; 82728; 83540; 83550; 83735; 83970; 84100; 84443; 84484; 84550; 85025; 85347; 85730; 86706; 86803; 86850; 86900; 86920; 87340; 90935; 92921; 93005; 93010; 93306; 93454; 96372; 96374; 96376; 99152; 99153; 99285; C1725; C1769; C1874; C1887; C1894; C9600; J0360; J1644; J1938; J2250; J2270; J2405; J3010; J3490; J7030; J9999; P9040; Q3014; Q5105; Q9967

== ENCOUNTER → 2025-04-25 12:46 | Outpatient (BNVA) | payer MEDICARE, MEDICAID, SELFPAY ==
[2025-01-03 10:37] VITALS: BP 146/81; BMI 28.8
== END ==
PROVIDERS: PCP Nurse Practitioner Family; Visit Provider Nurse Practitioner Family
DX: I25.10 Atherosclerotic heart disease of native coronary artery without angina pectoris (principal); Z09 Encounter for follow-up examination after completed treatment for conditions other than malignant neoplasm; I12.0 Hypertensive chronic kidney disease with stage 5 chronic kidney disease or end stage renal disease; E11.22 Type 2 diabetes mellitus with diabetic chronic kidney disease; N18.6 End stage renal disease; Z99.2 Dependence on renal dialysis; E78.2 Mixed hyperlipidemia; Z79.02 Long term (current) use of antithrombotics/antiplatelets; Z79.82 Long term (current) use of aspirin; Z95.5 Presence of coronary angioplasty implant and graft; Z87.891 Personal history of nicotine dependence; I10 Essential (primary) hypertension
CPT/HCPCS: 36415; 80048; 85025; 99213

== ENCOUNTER 2025-05-24 17:08 | Emergency (ER) | payer MEDICARE, MEDICAID, SELFPAY ==
--- OUTSIDE RECORDS SUMMARY | 2024-08-05 04:00 | XMS_ITS ---
Author Organization [facility] Address [address] [place] [address] Care Team Providers Care Needlemaker Name Role Phone Horne Funmilayo CANTU Primary Care Provider Unavailab Alverto Crocker Unavailable [phone] Migration, Provider Unavailable Unavailable REASON FOR VISIT EMR-Marcellus Encounters Encounter Location Date Provider Diagnosis Migrated_Facility 0 0 08/05/2024 Provider Migration Plan Of Treatment No Information Progress Notes * Abimael SAHU GDOB:1970 (54 yo M)Acc No.[id number]:08/05/2024 Patient: Jose Abimael ARAUJO :1970 A ge:54 Y S ex:Male Address:[address] [place], [address] Subjective: * Chief Complaints: * E MR-Marcellus * * Date:
--- OUTSIDE RECORDS SUMMARY | 2024-08-06 04:00 | XMS_ITS ---
Author Organization [facility] Address [address] [place] [address] Care Team Providers Care Informatics Specialist Name Role Phone Horne Funmilayo CANTU Primary Care Provider Unavailab Alverto Crocker Unavailable [phone] Migration, Provider Unavailable Unavailable Allergies Allergen (clinical [...] * Abimael SAHU GDOB:1970 (54 yo M)Acc No.[id number]:08/06/2024 Patient: Jose Abimael ARAUJO Stacie :1970 A ge:54 Y S ex:Male Address:[address] [place], [address] Subjective: * Chief Complaints: * E MR-Marcellus * Allergies: N ovocain: AllergyBenadryl: Allergy - Criticality HighINVanz: AllergyHydralazine: incontienence - Allergy * * Date:
[2025-01-03 10:37] VITALS: BP 146/81; BMI 28.8
[2025-05-24 17:13] VITALS: BP 154/77; PULSE 67; RESP 16; TEMP 36.9; O2SAT 97; BMI 25.7
--- OUTSIDE RECORDS SUMMARY | 2025-05-24 17:18 | XMS_ITS | Encounter Summary ---
Author Organization [facility], [facility] Address [address] [place] [address] Phone Care Team Providers Care Management Trainee Marketing Name Role Phone Unavailable Primary Care Provider Unavailabl e Encounter Details Date Type Department Care Team (Late st Contact Info) Description 05/16/2025 Orders Only [facility] [address] [place] [address] Shannon Cochran MD [address] [place] [address] Social History Tobacco Use Types Packs/Day Years Used Date Smoking Tobacco: Former Cigarettes Q uit: 10/11/2012 Sex and Gender Information Value Date Recorded Sex Assigned at Not on file Legal Sex Male 12:44 PM EST Gender Identity Not on file Sexual Orientation Not on file documented as of this encounter Plan of Treatment Not on file documented as of this encounter Procedures Procedure Name Priority Date/Time Associated Diagnosis Comments HD KINETICS Routine 05/16/2025 POST CHEMISTRY Routine 05/16/2025 HEMATOLOGY Routine 05/16/2025 CHEMISTRY Routine 05/16/2025 CHEMISTRY Routine 05/16/2025 [facility] RESULTS Routine 05/16/2025 documented in this encounter Results * [facility] Results (05/16/2025) spKt/V (Daugirdas II) 1.39 [facility] eKt/V (Tattersgardenia) 1.22 [facility] eKdrt/V 1.22 [facility] spKt/V Gotch 1.39 [facility] WSTDKT/V 2.3 [facility] nPCR_HD 0.50 [facility] eNPCR 0.48 [facility] eKt/V Gotch 1.22 [facility] e Manning PCR 47.15 [facility] 05/16/2025 05/16/2025 [facility] [place]ing Provider LAB BLOOD ORDERABLES Final Result [facility] Contact Performing lab Unknown, [place] * HD KINETICS (05/16/2025) Pathologist [facility] % Urea Reduction 72 65 - 80 % [facility] 05/16/2025 05/17/2025 4:1 2 PM CDT Narrative [facility] - 05/17/2025 Unless otherwise specified, test(s) performed at: [facility], [address] [place] [address] ART FRAMING MANAGER: Dar Kang M.D. For any questions, please call customer service at FREQUENCY:MONTHLY Resulting Agency Comment Specimen source: Plasma Shannon Cochran MD LAB BLOOD ORDERABLES Final Re sult [facility] See order comments or contact performing lab Unknown, [place] * (ABNORMAL) [facility] (05/16/2025) Pathologist [facility] BUN 25(H) 6 - 19 mg/dL [facility] Creatinine 6.23(H) 0.60 - 1.30 mg/dL [facility] BUN/Creatinine Ratio 4.0(L) 10.0 - 20.0 [facility] Sodium 135(L) 136 - 145 mEq/L [facility] Potassium 4.0 3.5 - 5.1 mEq/L [facility] Chloride 98 96 - 108 mEq/L [facility] Bicarbonate (CO2) 26 22 - 29 mEq/L [facility] Calcium 8.5 8.4 - 10.2 mg/dL [facility] Corrected Calcium 9.0 8.4 - 10.2 mg/dL [facility] Comment: Corrected Calcium is not equivalent to measured Ionized Calcium. Phosphorus 3.8 2.6 - 4.5 mg/dL [facility] Calcium Phosphorus Product 32 0 - 54 [facility] Calcium Phosporus Product, Cor 34 0 - 54 [facility] Total Protein 5.3(L) 6.0 - 8.5 g/dL [facility] Albumin 3.4(L) 3.5 - 5.2 g/dL [facility] Globulin, Total 1.9(L) 2.0 - 4.0 g/dL [facility] A/G Ratio 1.8 1.0 - 2.0 [facility] Glucose 125(H) 70 - 100 mg/dL [facility] Magnesium 2.1 1.6 - 2.6 mg/dL [facility] Iron 27(L) 45 - 160 mcg/dL [facility] UIBC 139(L) 155 - 355 mcg/dL [facility] TIBC 166(L) 185 - 515 mcg/dL [facility] Iron Saturation (TSat) 16(L) 20 - 55 % [facility] 05/16/2025 05/17/2025 4:0 7 PM CDT Narrative [facility] - 05/17/2025 Unless otherwise specified, test(s) performed at: [facility], [address] [place], [place] [id number] ART FRAMING MANAGER: Dar Kang M.D. For any questions, please call customer service at FREQUENCY:MONTHLY Resulting Agency Comment Specimen source: Serum Shannon Cochran MD LAB BLOOD ORDERABLES Final Re sult [facility] See order comments or contact performing lab Unknown, [place] * POST CHEMISTRY (05/16/2025) BUN Post Dialysis 7 6 - 19 mg/dL [facility] 05/16/2025 05/17/2025 4:1 2 PM CDT Narrative [facility] - 05/17/2025 Unless otherwise specified, test(s) performed at: [facility], [address] [place] [id number] ART FRAMING MANAGER: Dar Kang M.D. For any questions, please call customer service at FREQUENCY:MONTHLY Resulting Agency Comment Specimen source: Plasma Shannon Cochran MD LAB BLOOD ORDERABLES Final Re sult [facility] See order comments or contact performing lab Unknown, [place] * (ABNORMAL) HEMATOLOGY (05/16/2025) Neutrophils 71.1 40.0 - 75.0 % [facility] Lymphocytes Relative 15.9(L) 19.0 - 48.0 % [facility] Monocytes 5.7 3.0 - 10.0 % [facility] Eosinophils Relative 4.7 0.0 - 7.0 % [facility] Basophils Relative 1.4 0.0 - 1.5 % [facility] LENNY 1.2 0.0 - 4.0 % [facility] WBC 4.17(L) 4.80 - 10.80 1000/mcL [facility] RBC 3.44(L) 4.70 - 6.10 mill/mcL [facility] Hematocrit 29.2(L) 42.0 - 52.0 % [facility] MCV 85 80 - 100 fl [facility] MCH 27.6 27.0 - 31.0 pg [facility] MCHC 32.5 30.0 - 36.0 g/dL [facility] RDW 15.7(H) 11.5 - 14.5 % [facility] Hemoglobin 9.5(L) 14.0 - 18.0 g/dL [facility] Hemoglobin x 3 28.5(L) 42.0 - 54.0 % [facility] Platelets 140 130 - 400 1000/mcL [facility] 05/16/2025 05/17/2025 12: 41 PM CDT Narrative [facility] - 05/17/2025 Unless otherwise specified, test(s) performed at: [facility], [address] [place] [address] ART FRAMING MANAGER: Dar Kang M.D. For any questions, please call customer service at FREQUENCY:MONTHLY Resulting Agency Comment Specimen source: Blood us Shannon Cochran MD LAB BLOOD ORDERABLES Final Re sult [facility] See order comments or contact performing lab Unknown, [place] * [facility] Chemistry (05/16/2025) PTH 40 16 - 80 pg/mL [facility] 05/16/2025 05/17/2025 1:1 8 PM CDT Narrative [facility] - 05/17/2025 Unless otherwise specified, test(s) performed at: [facility], [address] [place] [id number] ART FRAMING MANAGER: Dar Kang M.D. For any questions, please call customer service at FREQUENCY:MONTHLY Resulting Agency Comment Specimen source: Plasma us Shannon Cochran MD LAB BLOOD ORDERABLES Final Re sult [facility] See order comments or contact performing lab Unknown, [place] documented in this encounter Visit Diagnoses Not on filedocumented in this encounter
--- OUTSIDE RECORDS SUMMARY | 2025-05-24 17:18 | XMS_ITS | Clinical Summary ---
Author Organization [facility] Facility Address [address] [place] [address] Care Team Providers Care Residential Finish Carpenter Name Role Phone Unavailable Primary Care Provider Unavailhans e Encounters Date Type Department Care Team Description 05/23/2025 Orders Only [facility], [facility] [address] [place] [address] Shannon Cochran MD 05/23/2025 Treatment [facility], [facility] [address] [place] [address] Merlyn Smith NP End stage renal disease; Dependence on renal dialysis 05/21/2025 [facility], [facility] [address] [place] [address] Shannon Cochran MD End stage renal disease; Dependence on renal dialysis 05/18/[address] [place] [address] [facility], [facility] [address] [place] [address] Beatrice Young NP End stage renal disease; Dependence on renal dialysis; Hypertensive chronic kidney disease with stage 1 through stage 4 chronic kidney disease, or unspecified chronic kidney disease 05/16/2025 Orders Only [facility] [address] [place] [address] Shannon Cochran MD 05/09/2025 Orders Only [facility] [address] [place] [address] Shannon Cochran MD 05/02/2025 Orders Only [facility] [address] [place] [address] Shannon Cochran MD 05/02/2025 Treatment [facility], [facility] [address] [place] [address] Shannon Cochran MD End stage renal disease; Dependence on renal dialysis 04/25/2025 Orders Only [facility], [facility] [address] [place] [address] Shannon Cochran MD 04/23/2025 Orders Only [facility], [facility] [address] [place] [address] Shannon Cochran MD 04/23/2025 TCM in Dialysis Clinic [facility], [facility] [address] [place] [address] Merlyn Smith NP 04/23/2025 Treatment [facility], [facility] [address] [place] [address] Merlyn Smith, MARGOT End stage renal disease; Dependence on renal dialysis; Hypertensive chronic kidney disease with stage 1 through stage 4 chronic kidney disease, or unspecified chronic kidney disease 04/20/2025 Orders Only [facility], [facility] [address] [place] [address] Shannon Cochran MD 04/20/2025 Documentation Only [facility], [facility] [address] [place] [address] Fouzia Franks MA 04/19/2025 [facility]phone [facility], [facility] [address] [place] [address] Beatrice Young NP 04/11/2025 [facility], [facility] [address] [place] [address] Shannon Cochran MD 04/11/2025 Treatment [facility], [facility] [address] [place] [address] Beatrice Young NP End stage renal disease; Dependence on renal dialysis 04/04/2025 Orders [facility], [facility] [address] [place] [address] Shannon Cochran MD 04/02/[address] [place] [address], [facility] [address] [place] [address] Merlyn Smith NP End stage renal disease; Dependence on renal dialysis 03/28/2025 Orders Only [facility], [facility] [address] [place] [address] Shannon Cochran MD 03/28/[address] [place] [address], [facility] [address] [place] [address] Shannon Cochran MD End stage renal disease; Dependence on renal dialysis; Hypertensive chronic kidney disease with stage 1 through stage 4 chronic kidney disease, or unspecified chronic kidney disease 03/21/2025 Orders Only [facility], [facility] [address] [place] [address] Shannon Cochran MD 03/19/[address] [place] [address], [facility] [address] [place] [address] Merlyn Smith NP End stage renal disease; Dependence on renal dialysis 03/14/2025 Orders Only [facility], [facility] [address] [place] [address] Shannon Cochran MD 03/12/[address] [place] [address], [facility] [address] [place] [address] Merlyn Smith NP End stage renal disease; Dependence on renal dialysis 03/07/2025 Orders Only [facility], [facility] [address] [place] [address] Shannon Cochran MD 03/07/2025 Treatment [facility] [address] [place] [address] Shannon Cochran MD End stage renal disease; Dependence on renal dialysis 02/26/2025 Treatment [facility] [address] [place] [address] Beatrice Young NP End stage renal disease; Dependence on renal dialysis; Hypertensive chronic kidney disease with stage 1 through stage 4 chronic kidney disease, or unspecified chronic kidney disease 02/21/2025 Orders Only [facility], [facility] [address] [place] [address] Shannon Cochran MD from Last 3 Months Family History Medical History Relation Comments Heart disease Father 2 Hypertension Father 2 Heart disease Mother 2 Hypertension Mother 2 Relation Status Comments Father 1 Father 2 Mother 1 Mother 2 Social History Tobacco Use Types Packs/Day Years Used Date Smoking Tobacco: Former Cigarettes Q uit: 10/11/2012 Sex and Gender Information Value Date Recorded Sex Assigned at Not on file Legal Sex Male 12:44 PM EST Gender Identity Not on file Sexual Orientation Not on file Last Filed Vital Signs Vital Sign Reading Time Taken Comments Blood Pressure 112/70 12/17/2016 11:00 AM QA ENGINEER Pulse 64 12/17/2016 11:00 AM QA ENGINEER Temperature - - Respiratory Rate - - Oxygen Saturation - - Inhaled Oxygen Concentration - - Weight 126 kg (277 lb 6.4 oz) 12/17/2016 11:00 A M QA ENGINEER Height 203.2 cm (6' 8 ) 12/17/2016 11:00 AM QA ENGINEER Body Mass Index 30.47 12/17/2016 11:00 AM QA ENGINEER Plan of Treatment Health Maintenance Due Date Last Done Comments Pneumococcal Vaccine: 50+ Ye ars (1 of 2 - PCV) 1989 Hepatitis B Vaccine (1 of 5 - Risk Dialysis 4-dose series) 1990 Colorectal Cancer Screening: Annual FOBT 2019 Colorectal Cancer Screening: Colonoscopy 2019 Colorectal Cancer Screening: Sigmoidoscopy 2019 Diabetes: Hemoglobin A1C 07/17/2024 03/31/2019, 03/0 04/2017 Diabetes: Pedal Pulse Checked 07/17/2024 Diabetes: Sensory Foot Exam 07/17/2024 Diabetes: Visual Foot Exam 07/17/2024 Influenza Vaccine (#1) 2025 07/26/2024, 2014 Diabetes: Ophthalmology Exam 08/10/2025 08/10/2024 Procedures Procedure Name Priority Date/Time Associated Diagnosis Comments HEMATOLOGY Routine 05/23/2025 [facility] RESULTS Routine 05/16/2025 HD KINETICS Routine 05/16/2025 CHEMISTRY Routine 05/16/2025 POST CHEMISTRY Routine 05/16/2025 HEMATOLOGY Routine 05/16/2025 CHEMISTRY Routine 05/16/2025 CHEMISTRY Routine 05/09/2025 HEMATOLOGY Routine 05/09/2025 CHEMISTRY Routine 05/02/2025 HEMATOLOGY Routine 05/02/2025 CHEMISTRY Routine 04/25/2025 HEMATOLOGY Routine 04/25/2025 [facility] LAB RESULTS Routine 04/23/2025 HD KINETICS Routine 04/23/2025 POST CHEMISTRY Routine 04/23/2025 CHEMISTRY Routine 04/23/2025 HEMATOLOGY Routine 04/23/2025 HEMATOLOGY Routine 04/20/2025 CHEMISTRY Routine 04/11/2025 HEMATOLOGY Routine 04/11/2025 HEMATOLOGY Routine 04/04/2025 CHEMISTRY Routine 04/04/2025 CHEMISTRY Routine 03/28/2025 HEMATOLOGY Routine 03/28/2025 CHEMISTRY Routine 03/21/2025 HEMATOLOGY Routine 03/21/2025 [facility] LAB RESULTS Routine 03/14/2025 CHEMISTRY Routine 03/14/2025 HD KINETICS Routine 03/14/2025 CHEMISTRY Routine 03/14/2025 HEMATOLOGY Routine 03/14/2025 POST CHEMISTRY Routine 03/14/2025 CHEMISTRY Routine 03/07/2025 HEMATOLOGY Routine 03/07/2025 CHEMISTRY Routine 02/21/2025 HEMATOLOGY Routine 02/21/2025 HEMOGLOBIN A1C Routine 12/15/2016 12:00 AM QA ENGINEER from Last 3 Months or Most Recently Relevant to Health Maintenance Results * (ABNORMAL) HEMATOLOGY (05/23/2025) Only the most recent of14 resultswithin the time period is included. Hemoglobin 9.7(L) 14.0 - 18.0 g/dL [facility] Hemoglobin x 3 29.1(L) 42.0 - 54.0 % [facility] 05/23/2025 05/24/2025 10: 52 AM CDT Narrative [facility] - 05/24/2025 Unless otherwise specified, test(s) performed at: [facility], [address] [place] [address] INFORMATICS NURSE SPECIALIST: Dar Kang M.D. For any questions, please call customer service at FREQUENCY:OTHER Resulting Agency Comment Specimen source: Blood Result Abdulkadir Cochran MD LAB BLOOD ORDERABLES Final Re sult Performing Organization Address [facility] Co de Phone Number [facility] See order comments or contact performing lab Unknown, [place] * HD KINETICS (05/16/2025) Only the most recent of3 resultswithin the time period is included. % Urea Reduction 72 65 - 80 % [facility] 05/16/2025 05/17/2025 4:1 2 PM CDT Narrative [facility] - 05/17/2025 Unless otherwise specified, test(s) performed at: [facility], [address] [place] [address] INFORMATICS NURSE SPECIALIST: Dar Kang M.D. For any questions, please call customer service at FREQUENCY:MONTHLY Resulting Agency Comment Specimen source: Plasma Result Abdulkadir Cochran MD LAB BLOOD ORDERABLES Final Re sult Performing Organization Address [facility] de Phone Number [facility] [employer] See order comments or contact performing lab Unknown, [place] * POST CHEMISTRY (05/16/2025) Only the most recent of3 resultswithin the time period is included. BUN Post Dialysis 7 6 - 19 mg/dL [facility] 05/16/2025 05/17/2025 4:1 2 PM CDT Narrative [facility] - 05/17/2025 Unless otherwise specified, test(s) performed at: [facility], [address] [place] [address] INFORMATICS NURSE SPECIALIST: Dar Kang M.D. For any questions, please call customer service at FREQUENCY:MONTHLY Resulting Agency Comment Specimen source: Plasma Result Abdulkadir Cochran MD LAB BLOOD ORDERABLES Final Re sult [facility] See order comments or contact performing lab Unknown, [place] * (ABNORMAL) [facility] Chemistry (05/16/2025) Only the most recent of14 resultswithin the time period is included. BUN 25(H) 6 - 19 mg/dL [facility] [...] 05/16/2025 05/17/2025 4:0 7 PM CDT Narrative [facility] - 05/17/2025 Unless otherwise specified, test(s) performed at: [facility], [address] [place] [address] INFORMATICS NURSE SPECIALIST: Dar Kang M.D. For any questions, please call customer service at FREQUENCY:MONTHLY Resulting Agency Comment Specimen source: Serum us Shannon Cochran MD LAB BLOOD ORDERABLES Final Re sult [facility] See order comments or contact performing lab Unknown, [place] * [facility] Lab Results (05/16/2025) Only the most recent of3 resultswithin the time period is included. spKt/V (Daugirdas II) 1.39 [facility] eKt/V (Tattersall) 1.22 [facility] eKdrt/V 1.22 [facility] spKt/V Gotch 1.39 [facility] [place] [facility] Center WSTDKT/V 2.3 [facility] nPCR_HD 0.50 [facility] eNPCR 0.48 [facility] eKt/V Gotch 1.22 [facility] e Center PCR 47.15 [facility] 05/16/2025 05/16/2025 us Luis Miguel Ordering Provider LAB BLOOD ORDERABLES Final Result [facility] Contact Performing lab Unknown, [place] * (ABNORMAL) Hemoglobin A1c (12/15/2016 12:00 AM QA ENGINEER) Hemoglobin A1C 8.6(H) 4.0 - 6.0 % [facility]NA Comment per courtesy lab ms SNA 12/15/2016 us Riki Vogel MD LAB BLOOD ORDERABLES Fi nal Result [facility]NA from Last 3 Months or Most Recently Relevant to Health Maintenance Insurance Medicaid [place] ([id number]) [facility] Medicare
--- OUTSIDE RECORDS SUMMARY | 2025-05-24 17:18 | XMS_ITS | Encounter Summary ---
Author Organization [place] [facility], [facility] Address [address] [place] [address] Phone Care Team Providers Care Heel Nail Rasper Name Role Phone Unavailable Primary Care Provider Unavailabl e Encounter Details Date Type Department Care Team (Late st Contact Info) Description 04/23/2025 TCM in Dialysis Clinic [facility] [address] [place] [address] Vania Dudley NP [address] [place] [address] Social History Tobacco Use Types Packs/Day Years Used Date Smoking Tobacco: Former Cigarettes Q uit: 10/11/2012 Sex and Gender Information Value Date Recorded Sex Assigned at Not on file Legal Sex Male 12:44 PM EST Gender Identity Not on file Sexual Orientation Not on file documented as of this encounter Progress Notes * Vania Dudley NP - 04/23/2025 12:00 AM CDT Patient: Abimael Sahu : 1970 Note Type: Dialysis TCM Service Date: 04/23/2025 The patient was seen for a [id number] visit as part of Transitional Care Management services. Primary cause of renal failure: I12.9 - Hypertensive chronic kidney disease with stage 1 through stage 4 chronic kidney disease, or unspecified chronic kidney disease Attending Wall Washer: NATE SAHU Dialysis Location: [facility] Schedule: Shift: 1 INTERACTIVE CONTACT Contact with the patient or caregiver was made or attempted within 2 business days of discharge - details in the medical record. HOSPITALIZATION SUMMARY Patient transitioned from: Hospital Patient transitioned to: Home Admit Date: 04/12/2025 Discharge Date: 04/18/2025 Discharged info reviewed: No outstanding diagnostic tests and treatments Reason for admission: CP and cardiac stent placed COMMENTS: Has follow up with cardiology Will call to arrange fistulogram HOME MEDICATIONS Discharge med list reviewed - changes reconciled and discussed with patient. Active treatment medication orders reviewed with changes noted. TREATMENT MEDICATIONS ORDERS Heparin Sodium (Porcine) 1,000 Units/mL Catheter Lock Arterial 2500 units Arterial Red Port Every Treatment Post Dialysis 09/27/2024 - 09/26/2025 Heparin Sodium (Porcine) 1,000 Units/mL Catheter Lock Venous 2400 units Venous Blue Port 3X Week Post Dialysis 10/16/2024 - 10/15/2025 Heparin Sodium (Porcine) 1,000 Units/mL Systemic 9000 units IVP Every Treatment 07/14/2024 - 07/13/2025 Iron Sucrose (Venofer) 100 mg IVP 3X Week During Dialysis 04/09/2025 - 04/30/2025 Mircera 60 mcg IVP Every 2 weeks During Dialysis 04/09/2025 - 04/08/2026 Vitamin D (Calcitriol) Oral 0.75 mcg ORAL 3X Week 11/03/2024 - 11/02/2025 PHYSICAL EXAM Exam performed. Vital Signs Reviewed. Lungs - Clear. CV - Blood pressure noted. CV - RRR. No edema. EXT - No ulcers. DIALYSIS PRESCRIPTION Dry weight during admission reviewed - no change to EDW. Treatment Data Treatment Date: 04/23/2025 started at: 8:36 AM Dialysate / Machine Temp (prescribed): 37.0*C Dialysate / Machine Temp (actual): 37.0*C BFR (prescribed): 450 BFR (actual): 450 DFR (prescribed): Autoflow 2.0 DFR (actual): 800 Prescribed Time: 04:15 EDW (kg): 103.0 Dialyzer: 180NRe Optiflux Dialysate: 3.0 K, 2.5 Ca, 1.0 Mg, 100 Dextrose (G3251) Sodium: 137 Bicarb: 35 Pre Dialysis Vitals Pre BP Sit: 136/71 Pre Wt (kg): 100.7 EDW Deviation (kg): -2.3 Temp: 97.6*F Current Dialysis Vitals BP Sit: 181/88 AP/SALES DIRECTOR: -- Pulse: 71 CARE COORDINATION Post-discharge follow-up appointments reviewed with the patient. Established or re-established referrals. COMMENTS: fistulogram IMPRESSION & PLAN COMMENTS: CP- heart cath s/p stent placement. Started Imdur ESRD- using CVC. Will have fistulogram done soon. HD per MWF. VISIT DIAGNOSES CPT Code 64437 - High complexity, seen within 7 days of discharge. I20.9 Angina pectoris, unspecified N18.6 End stage renal disease Signed by: VANIA DUDLEY NP on 04/23/2025 at 10:42:47 AM Transcribed by: VANIA DUDLEY NP on 04/23/2025 at 10:42:47 AM documented in this encounter Plan of Treatment Not on file documented as of this encounter Visit Diagnoses Not on filedocumented in this encounter
--- OUTSIDE RECORDS SUMMARY | 2025-05-24 17:18 | XMS_ITS | Encounter Summary ---
Author Organization [facility], [facility] Address [address] [place] [address] Phone Care Team Providers Care Shell Mold Bonding Machine Operator Name Role Phone Unavailable Primary Care Provider Unavailabl e Encounter Details Date Type Department Care Team (Late st Contact Info) Description 05/23/2025 Orders Only [facility] [address] [place] [address] Shannon Cochran MD [address] [place] [address] Social History Tobacco Use Types [...] Date/Time Associated Diagnosis Comments HEMATOLOGY Routine 05/23/2025 documented in this encounter Results * (ABNORMAL) HEMATOLOGY (05/23/2025) Hemoglobin 9.7(L) 14.0 - 18.0 g/dL [facility] Hemoglobin x 3 29.1(L) 42.0 - 54.0 % [facility] 05/23/2025 05/24/2025 10: 52 AM CDT Narrative [facility] - 05/24/2025 Unless otherwise specified, test(s) performed at: [facility], [address] [place] [address] PROJECT GEOPHYSICIST: Dar Kang M.D. For any questions, please call customer service at FREQUENCY:OTHER Resulting Agency Comment Specimen source: Blood us Shannon Cochran MD LAB BLOOD ORDERABLES Final Re sult [facility] See order comments or contact performing lab Unknown, [place] documented in this encounter Visit Diagnoses Not on filedocumented in this encounter
--- OUTSIDE RECORDS SUMMARY | 2025-05-24 17:18 | XMS_ITS | Encounter Summary ---
Author Organization [facility] [place] [facility], [facility] Address [address] [place] [address] Phone Care Team Providers Care Unmanned Equipment Operator Name Role Phone Unavailable Primary Care Provider Unavailabl e Encounter Details Date Type Department Care Team (Late st Contact Info) Description 05/18/2025 Treatment [facility], [facility] [address] [place] [address] Jose Yo NP [address] [place] [address] End stage renal disease; Dependence on renal dialysis; Hypertensive chronic kidney disease with stage 1 through stage 4 chronic kidney disease, or unspecified chronic kidney disease Social History Tobacco Use Types Packs/Day Years Used Date Smoking Tobacco: Former Cigarettes Q uit: 10/11/2012 Sex and Gender Information Value Date Recorded Sex Assigned at Not on file Legal Sex Male 12:44 PM EST Gender Identity Not on file Sexual Orientation Not on file documented as of this encounter Miscellaneous Notes * Dialysis Note - Jose Yo NP - 05/18/2025 12:00 AM CDT Patient: Abimael Sahu : 1970 Note Type: Dialysis Rounds-Comp Service Date: 05/18/2025 This patient was personally seen [id number] for a complete visit as part of routine monthly dialysis care for end stage renal disease. Primary cause of renal failure: I12.9 - Hypertensive chronic kidney disease with stage 1 through stage 4 chronic kidney disease, or unspecified chronic kidney disease Attending Manager Loan: NATE SAHU Dialysis Location: [facility] Schedule: Shift: 1 OVERVIEW Patient is stable. COMMENTS: Seen on HD. No concerns. HOME MEDICATIONS Medications reviewed. Current [facility] Outpatient Medications Adult Low Dose Aspirin 81 mg tablet,delayed release (DR/EC) Take 1 tablet by mouth once a day. albuterol sulfate 90 mcg/actuation HFA aerosol inhaler Inhale 1 puff as directed every six hours as needed. alpha lipoic acid 200 mg tablet Take 1 tablet by mouth twice a day. atorvastatin 40 mg tablet Take 1 tablet by mouth every night at bedtime. buspirone 10 mg tablet Take 1 tablet by mouth twice a day. [id number]-[id number]-4 0.1 mg/24 hr patch weekly Apply 1 patch patch once a week. Cialis 20 mg tablet 1 tablet as directed. clopidogrel 75 mg tablet Take 1 tablet by mouth once a day. cyclobenzaprine 10 mg tablet Take 1 tablet by mouth three times a day as needed. [taking as needed for muscle spasm] duloxetine 60 mg capsule,delayed release(DR/EC) Take 1 capsule by mouth once a day. fluticasone furoate 50 mcg/actuation blister with device Inhale 1 puff as directed twice a day. hydralazine 100 mg tablet Take 1 tablet by mouth twice a day. [hold if SBP less than 120mmhg] metoprolol tartrate 100 mg tablet Take 1 tablet by mouth twice a day. nifedipine 60 mg tablet extended release Take 1 tablet by mouth once a day as directed. Novolog FlexPen U-100 Insulin 100 unit/mL (3 mL) insulin pen Inject 1 unit subcutaneously three times a day with meals. [PER Sliding Scale: 100-150=4u, 151-200=6u, 201-250=8u, 251-300=10u, 301-350=12u, over 350 call] pregabalin 100 mg capsule Take 1 capsule by mouth three times a day. Rexulti 2 mg tablet Take 1 tablet by mouth once a day. sertraline 25 mg tablet Take 4 tablet by mouth once a day. sertraline 25 mg tablet Take 2 tablet by mouth every evening. Sevelamer Carbonate Tablet 800 mg tablet Take 1 Tablet By Mouth Three times a day With Meals. tamsulosin 0.4 mg capsule Take 1 capsule by mouth once a day as directed. terazosin 10 mg capsule Take 1 capsule by mouth every morning. terazosin 5 mg capsule Take 4 capsule by mouth every night. Toujeo Max U-300 SoloStar 300 unit/mL (3 mL) insulin pen Inject 40 subcutaneously twice a day as directed. trazodone 100 mg tablet Take 4 tablet by mouth at bedtime as needed. [For insomnia] Current [facility] Allergies Allergen: Benadryl Allergy Reaction: Unknown Allergen: ertapenem Reaction: Unknown DIALYSIS PRESCRIPTION Treatment Data Treatment Date: 05/18/2025 started at: 7:59 AM Dialysate / Machine Temp (prescribed): 37.0*C Dialysate / Machine Temp (actual): 36.9*C BFR (prescribed): 450 BFR (average delivered): 450 DFR (prescribed): Autoflow 2.0 DFR (average delivered): 800 Prescribed Time: 04:15 Actual Time: 04:16 EDW (kg): 102.6 Dialyzer: 180NRe Optiflux Dialysate: 3.0 K, 2.5 Ca, 1.0 Mg, 100 Dextrose (G3251) Sodium: 137 Bicarb: 35 Pre Dialysis Vitals Pre BP Sit: 158/78 Pre Wt (kg): 104.0 EDW Deviation (kg): 1.4 Temp: 97.3*F Post Dialysis Vitals Post BP Sit: 150/73 Post Wt (kg): 102.6 TREATMENT MEDICATIONS ORDERS Heparin Sodium (Porcine) 1,000 Units/mL Catheter Lock Arterial 2500 units Arterial Red Port Every Treatment Post Dialysis 09/27/2024 - 09/26/2025 Heparin Sodium (Porcine) 1,000 Units/mL Catheter Lock Venous 2400 units Venous Blue Port 3X Week Post Dialysis 10/16/2024 - 10/15/2025 Heparin Sodium (Porcine) 1,000 Units/mL Systemic 9000 units IVP Every Treatment 07/14/2024 - 07/13/2025 Mircera 75 mcg IVP Every 2 weeks During Dialysis 05/07/2025 - 05/06/2026 Vitamin D (Calcitriol) Oral 0.75 mcg ORAL 3X Week 11/03/2024 - 11/02/2025 BP AND FLUID ASSESSMENT Acceptable blood pressure. Fluid status acceptable. COMMENTS: On average, BP in goal Post BP Sit 150/73 - 05/18/2025 102/55 - 05/16/2025 137/61 - 05/14/2025 Post Wt (kg) 102.6 - 05/18/2025 103.2 - 05/16/2025 102.7 - 05/14/2025 EDW (kg) 102.6 - 05/18/2025 102.6 - 05/16/2025 102.6 - 05/14/2025 Deviation (kg) 0.0 - 05/18/2025 0.6 - 05/16/2025 0.1 - 05/14/2025 ADEQUACY ASSESSMENT spKt/V (Daugirdas II) 1.39 (05/16/25) 1.53 (04/23/25) 1.45 (03/14/25) eKdrt/V 1.22 (05/16/25) 1.32 (04/23/25) 1.29 (03/14/25) % Urea Reduction 72 (05/16/25) 75 (04/23/25) 73 (03/14/25) BUN 25 (05/16/25) 44 (04/23/25) 24 (04/11/25) BUN Post Dialysis 7 (05/16/25) 11 (04/23/25) 8 (03/14/25) Creatinine 6.23 (05/16/25) 6.02 (05/09/25) 5.03 (05/02/25) Bicarbonate (CO2) 26 (05/16/25) 25 (05/09/25) 24 (05/02/25) Sodium 135 (05/16/25) 140 (04/11/25) 138 (03/14/25) Target met. Prescription compliance acceptable. Missed Treatments 0 - Last 30 days 3 - Last 60 days Most recently missed on 04/18/2025 ACCESS ASSESSMENT Vascular access examined. CVCatheter Tunneled Chest Active (In Use) - 07/13/2024 Placed - 07/06/2024 ANEMIA ASSESSMENT Hemoglobin 9.5 (05/16/25) 10.0 (05/09/25) 9.1 (05/02/25) Iron Saturation (TSat) 16 (05/16/25) 32 (04/11/25) 21 (04/04/25) Ferritin 382 (04/04/25) 419 (03/14/25) 418 (01/17/25) Iron 27 (05/16/25) 60 (04/11/25) 43 (04/04/25) TIBC 166 (05/16/25) 189 (04/11/25) 201 (04/04/25) Reticulocyte Hemoglobin 29.3 (03/28/25) 31.1 (02/14/25) 32.8 (07/26/24) MCV 85 (05/16/25) 84 (04/11/25) 83 (03/14/25) Platelets 140 (05/16/25) 123 (04/11/25) 128 (03/14/25) Anemia targets not met. Hemoglobin not at target. JAK adjusted per protocol. Iron adjusted per protocol. BMM ASSESSMENT Calcium 8.5 05/16/25 8.4 04/11/25 8.1 03/14/25 Corrected Calcium 9.0 05/16/25 8.6 04/11/25 8.5 03/14/25 Phosphorus 3.8 05/16/25 2.8 04/11/25 3.9 03/14/25 Calcium Phosphorus Product 32 05/16/25 24 04/11/25 32 03/14/25 PTH 40 05/16/25 153 03/14/25 289 12/15/24 Magnesium 2.1 05/16/25 2.1 04/11/25 2.0 03/14/25 Alkaline Phosphatase 53 03/14/25 56 12/15/24 62 11/01/24 Aluminum ?5 12/15/24 ?5 07/19/24 PTH within target. Phosphorus controlled. Calcium controlled. Bone and mineral metabolism parameters reviewed. NUTRITION ASSESSMENT Albumin 3.4 05/16/25 3.7 04/11/25 3.5 03/14/25 Potassium 4.0 05/16/25 3.6 04/11/25 3.5 03/14/25 eNPCR 0.48 05/16/25 0.62 04/23/25 0.55 03/14/25 Albumin not at goal. Potassium controlled. Referred to saw grinder for further counseling. PHYSICAL EXAM Exam not performed. ADDITIONAL LABS WBC 4.17 (05/16/25) 4.25 (04/11/25) 5.35 (03/14/25) Hepatitis B Surface Ab 63 (12/15/24) ?10 (07/17/24) Signed by: JOSE YO NP on 05/20/2025 at 12:49:38 PM Transcribed by: JOSE YO NP on 05/20/2025 at 12:49:38 PM documented in this encounter Plan of Treatment Not on file documented as of this encounter Visit Diagnoses Diagnosis End stage renal disease Dependence on renal dialysis Hypertensive chronic kidney disease with stage 1 through stage 4 chronic kidney disease, or unspecified chronic kidney disease documented in this encounter
--- OUTSIDE RECORDS SUMMARY | 2025-05-24 17:18 | XMS_ITS | Encounter Summary ---
Author Organization [facility], [facility] Address [address] [place] [address] Phone Care Team Providers Care Travel Ticketing Reviewer Name Role Phone Unavailable Primary Care Provider Rupal e Encounter Details Date Type Department Care Team (Late st Contact Info) Description 05/21/2025 Treatment [facility], [facility] [address] [place] [address] Shannon Cochran MD [address] [place] [address] End stage renal disease; Dependence on renal dialysis Social History Tobacco Use Types Packs/Day Years Used Date Smoking Tobacco: Former Cigarettes Q uit: 10/11/2012 Sex and Gender Information Value Date Recorded Sex Assigned at Not on file Legal Sex Male 12:44 PM EST Gender Identity Not on file Sexual Orientation Not on file documented as of this encounter Miscellaneous Notes * Dialysis Note - Shannon Cochran MD - 05/21/2025 12:00 AM CDT Patient: Abimael Cochran, 1970, 54y, M Dialysis Location: [facility] Attending After School Program Director: Shannon Cochran Service Date: 05/21/2025 Service Provider: Shannon Cochran MD I met face to face with the patient today. OVERVIEW The patient presented with ESRD on dialysis Primary cause of renal failure: Acute kidney failure with tubular necrosis Comments: VSS, Seen on hd machine. He did have ches pain and had ACS. Did have stents placed. He is on plavix now. He does have a LUE AVF. He still has a tunneled HD catheter so now on plavix. Will not be able to take tunneled HD catheterout until ~ October 2025. He still wants to do HHD but not now. Medications and labs reviewed. LAST HOSPITALIZATION Discharge Diagnosis: I20.0 Unstable angina N18.6 End stage renal disease Admission Date 04/12/25 Discharge Date 04/18/25 DIALYSIS PRESCRIPTION IHD 3x Week Start date: 05/11/25 Dialyzer: 180NRe Optiflux BFR: 450 DFR: Autoflow 2 Potassium: 3.0 Sodium: 137 EDW: 102.6 Duration: 4:15 Calcium: 2.5 Bicarb: 35 Rx updated on: 05/11/2025 TREATMENT ASSESSMENT Comments: Stable at goal. BP Stand Pre 05/18/2025: 130/70 05/16/2025: 105/74 05/14/2025: 130/66 BP Sit Pre 05/18/2025: 158/78 05/16/2025: 135/74 05/14/2025: 137/72 BP Stand Post 05/18/2025: 132/64 05/16/2025: 117/39 05/14/2025: 117/74 BP Sit Post 05/18/2025: 150/73 05/16/2025: 102/55 05/14/2025: 137/61 Tx Duration 05/18/2025: 4:16 05/16/2025: 4:03 05/14/2025: 4:16 Missed Treatments 0 - last 30 days 0 - last 60 days FLUID ASSESSMENT Comments: Continue to challenge as tolerated EDW (kg) 05/18/2025: 102.6 05/16/2025: 102.6 05/14/2025: 102.6 Weight Pre (kg) 05/18/2025: 104.0 05/16/2025: 103.0 05/14/2025: 104.2 Weight Post (kg) 05/18/2025: 102.6 05/16/2025: 103.2 05/14/2025: 102.7 PWV (kg) 05/18/2025: 0.0 05/16/2025: 0.6 05/14/2025: 0.1 UF Rate (mL/kg/hr) 05/18/2025: 3.2 05/16/2025: -0.5 05/14/2025: 3.4 ADEQUACY ASSESSMENT Comments: Stable trend spKt/V, URR 05/16/2025: 1.39, 72.0 04/23/2025: 1.53, 75.0 03/14/2025: 1.45, 73.0 ACCESS ASSESSMENT Access Type: CVCatheter Access SubType: Tunneled Access Status: Active (In Use) - 07/13/2024 Access Location: Chest Placed: 07/06/2024 Comments: As above ANEMIA ASSESSMENT Comments: JAK and iron algorithms and therapies. HGB, TSAT 05/16/2025: 9.5, 16.0 05/09/2025: 10.0, - 05/02/2025: 9.1, - Ferritin 04/04/2025: 382.0 03/14/2025: 419.0 01/17/2025: 418.0 Mircera, IVP (mcg) 05/07/2025: 75 04/23/2025: 60 04/09/2025: 60 Iron Sucrose (Venofer) (mg) 05/09/2025: 100 05/07/2025: 100 04/30/2025: 100 BMM ASSESSMENT Comments: Calcitriol stopped today. PTH is low. PTH, Intact 05/16/2025: 40.0 03/14/2025: 153.0 12/15/2024: 289.0 Calcium, Phosphorus 05/16/2025: 8.5, 3.8 04/11/2025: 8.4, 2.8 03/14/2025: 8.1, 3.9 Vitamin D (Calcitriol) Oral (mcg) 05/18/2025: 0.75 05/16/2025: 0.75 05/14/2025: 0.75 NUTRITION ASSESSMENT Comments: Update: reporting some improvement in appetite with addition of megesterol: monitor Ed to eat protien in diet; hx of gastric sleeve so he does eat smaller meals. Potassium, Albumin 05/16/2025: 4.0, 3.4 04/11/2025: 3.6, 3.7 03/14/2025: 3.5, 3.5 eNPCR 05/16/2025: 0.48 04/23/2025: 0.62 03/14/2025: 0.55 PHYSICAL EXAM Exam Performed. Vital Signs Reviewed. CV - Blood pressure noted. EXT - No edema. EXT - No ulcers. AVF/AVG Positive thrill/bruit. DIAGNOSIS Chief Complaint: N18.6 End stage renal disease Patient is stable. Patient data updated 05/21/2025 at 12:46 PM Signed By: Shannon Cochran MD on 05/21/2025 12:48:02 PM documented in this encounter Plan of Treatment Not on file documented as of this encounter Visit Diagnoses Diagnosis End stage renal disease Dependence on renal dialysis documented in this encounter
--- OUTSIDE RECORDS SUMMARY | 2025-05-24 17:18 | XMS_ITS | Encounter Summary ---
Author Organization [employer] [facility], [facility] Address [address] [place] [address] Phone Care Team Providers Care Supervisor Inspecting Name Role Phone Unavailable Primary Care Provider Unavailabl e Encounter Details Date Type Department Care Team (Late st Contact Info) Description 05/23/[address] [facility], [facility] [address] [place] [address] Merlyn Smith NP [address] [place] [address] End stage renal disease; Dependence [...] encounter Miscellaneous Notes * Dialysis Note - Merlyn Smith NP - 05/23/2025 12:00 AM CDT Patient: Abimael Cochran, 1970, 54y, M Dialysis Location: [facility] Attending Pre Fabricator: Shannon Cochran Service Date: 05/23/2025 Service Provider: Merlyn Smith NP I met face to face with the patient today. OVERVIEW The patient presented with ESRD on dialysis Primary cause of renal failure: Acute kidney failure with tubular necrosis Comments: VSS, Seen on hd machine. He did have chets pain and had ACS. Did have stents [...] 05/11/2025 TREATMENT ASSESSMENT Comments: Stable at goal. Blood pressure controlled. No changes indicated. BP Stand Pre 05/21/2025: 105/63 05/18/2025: 130/70 05/16/2025: 105/74 BP Sit Pre 05/21/2025: 126/68 05/18/2025: 158/78 05/16/2025: 135/74 BP Stand Post 05/21/2025: 133/66 05/18/2025: 132/64 05/16/2025: 117/39 BP Sit Post 05/21/2025: 132/68 05/18/2025: 150/73 05/16/2025: 102/55 Tx Duration 05/21/2025: 4:27 05/18/2025: 4:16 05/16/2025: 4:03 Missed Treatments 0 - last 30 days 0 - last 60 days FLUID ASSESSMENT Comments: Continue to challenge as tolerated EDW (kg) 05/21/2025: 102.6 05/18/2025: 102.6 05/16/2025: 102.6 Weight Pre (kg) 05/21/2025: 103.9 05/18/2025: 104.0 05/16/2025: 103.0 Weight Post (kg) 05/21/2025: 103.0 05/18/2025: 102.6 05/16/2025: 103.2 PWV (kg) 05/21/2025: 0.4 05/18/2025: 0.0 05/16/2025: 0.6 UF Rate (mL/kg/hr) 05/21/2025: 2 05/18/2025: 3.2 05/16/2025: -0.5 ADEQUACY ASSESSMENT Comments: Stable trend spKt/V, URR 05/16/2025: 1.39, 72.0 04/23/2025: 1.53, 75.0 03/14/2025: 1.45, 73.0 ACCESS ASSESSMENT Access Type: CVCatheter Access SubType: Tunneled Access Status: Active (In Use) - 07/13/2024 Access Location: Chest Placed: 07/06/2024 Comments: As above Vascular access reviewed. ANEMIA ASSESSMENT Comments: JAK and iron algorithms and therapies. HGB, TSAT 05/16/2025: 9.5, 16.0 05/09/2025: 10.0, - 05/02/2025: 9.1, - Ferritin 04/04/2025: 382.0 03/14/2025: 419.0 01/17/2025: 418.0 Mircera, IVP (mcg) 05/21/2025: 75 05/07/2025: 75 04/23/2025: 60 Iron Sucrose (Venofer) (mg) 05/21/2025: 100 05/09/2025: 100 05/07/2025: 100 BMM ASSESSMENT Comments: Calcitriol stopped today. PTH is low. PTH, Intact 05/16/2025: 40.0 03/14/2025: 153.0 12/15/2024: 289.0 Calcium, Phosphorus 05/16/2025: 8.5, 3.8 04/11/2025: 8.4, 2.8 03/14/2025: 8.1, 3.9 Vitamin D (Calcitriol) Oral (mcg) 05/21/2025: 0.75 05/18/2025: 0.75 05/16/2025: 0.75 NUTRITION ASSESSMENT Comments: Update: reporting some improvement in appetite with addition of megesterol: monitor Ed to eat protien in diet; hx of gastric sleeve so he does eat smaller meals. Potassium, Albumin 05/16/2025: 4.0, 3.4 04/11/2025: 3.6, 3.7 03/14/2025: 3.5, 3.5 eNPCR 05/16/2025: 0.48 04/23/2025: 0.62 03/14/2025: 0.55 DIAGNOSIS Chief Complaint: N18.6 End stage renal disease Patient data updated 05/23/2025 at 9:23 AM Signed By: Merlyn Smith NP on 05/23/2025 9:24:40 AM documented in this encounter Plan of Treatment Not on file documented as of this encounter Visit Diagnoses Diagnosis End stage renal disease Dependence on renal dialysis documented in this encounter
--- OUTSIDE RECORDS SUMMARY | 2025-05-24 17:19 | XMS_ITS | Encounter Summary ---
Author Organization [facility] Address [address] [place] [address] Care Team Providers Care Sponge Hooker Name Role Phone Osmani Contreras MD Primary Care Provider Encounter Details Date Type Department Care Team (Late st Contact Info) Description 07/08/2004 Outpatient Historical [facility] [address] [place] [id number] Ger Fabian MD [address] [place] [address] Social History Tobacco Use Types Packs/Day Years Used Date Smoking Tobacco: Never Assessed Sex and Gender Information Value Date Recorded Sex Assigned at Not on file Legal Sex Male 3:06 AM QUALIFICATION ENGINEER Gender Identity Not on file Sexual Orientation Not on file documented as of this encounter Plan of Treatment Not on file documented as of this encounter Visit Diagnoses Not on filedocumented in this encounter Additional Health Concerns Infection Onset Date Last Indicated Resolved Time C Diff Comment:Resolved 09/08/2018, Infection Prevention 03/11/16 ([facility]) 03/25/2016 03/25/2016 8 7:46 AM QUALIFICATION ENGINEER documented as of this encounter Care Teams Sponge Hooker Relationship Specialty Start Date End Date Osmani Contreras MD [address] [place] [address] PCP - General Family Practice 12/04/15 documented as of this encounter
--- OUTSIDE RECORDS SUMMARY | 2025-05-24 17:19 | XMS_ITS | Clinical Summary ---
Author Organization [facility] Address [address] [place] [address] Care Team Providers Care Mixing House Operator Name Role Phone Osmani Conterras MD Primary Care Provider [phone] Allergies Active Allergy Reactions Criticality Noted Date Comments Diphenhydramine Hcl Other (See Comments) 2015 it makes me mean Ertapenem Unknown 09/06/2018 Procaine Unknown 09/06/2018 Medications cpap medical affairs specialist daily at bedtime. Auto titration CPAP [...] 18 mcg by inhalation daily. Active OTHER GARMENT FOLDER/GRABBER. 1 Each 0 6 Active diltiazem (CARDIZEM [...] with meals. 15 mL 09/09/2018 7:26 PM INSTRUCTIONAL SYSTEMS DESIGN CONSULTANT 8 Active ibuprofen (MOTRIN) 600 mg tablet [...] (09/06/2018): Added automatically from request for surgery [id number] Chronic left-sided low back pain without sciatic [...] on file Legal Sex Male 3:06 AM INSTRUCTIONAL SYSTEMS DESIGN CONSULTANT Gender Identity Not on file Sexual Orientation [...] 07/25/2018, 2014 Medical Devices Implanted Type [employer] Principal Device Identifier Shelf Expiration Date Model / Serial / Lot Screw Hex Int Rc Bl 6.4x110 [id number] - [id number] Implanted:Qty: 1 on 03/30/2019 by Colt Garza MD at [facility] Screw Right: Femur [employer] 07/30/2025 [id number] / / [id number] Screw Hex Int Rc Bl 6.4x115 [id number] - [id number] Implanted:Qty: 1 on 03/30/2019 by Colt Garza MD at [facility] Screw Right: Femur [employer] 01/08/2022 [id number] / / [id number] Screw Trgn Lp 5.0x50mm [id number] - [id number] Implanted:Qty: 1 on 03/30/2019 by Colt Garza MD at [facility] Screw Right: Femur [employer] 02/11/2029 [id number] / / [id number] Screw Trgn Lp 5.0x60mm [id number] - [id number] Implanted:Qty: 1 on 03/30/2019 by Colt Garza MD at [facility] Screw Right: Femur [employer] 10/11/2026 [id number] / / [id number] Nail Implanted:Qty: 1 on 03/30/2019 by Colt Garza MD at [facility] Right: Femur [employer] 08/10/2020 [id number] / / [id number] Explanted Type [employer] Principal Device Identifier Shelf Expiration Date Model / Serial / Lot Nail Fan Jud Rt [id number] - [id number] Implanted:Qty: 1 on 09/07/2018 by Colt Garza MD at [facility] Explanted:Qty: 1 on 03/30/2019 by Colt Garza MD at [facility] Nail Right: Femur [employer] 10/04/2025 [id number] / / [id number] Description:INV Screw Hex Int Rc Bl 6.4x110 [id number] - [id number] Implanted:Qty: 1 on 09/07/2018 by Colt Garza MD at [facility] Explanted:Qty: 1 on 03/30/2019 by Colt Garza MD at [facility] Screw Right: Femur [employer] 05/19/2027 [id number] / / [id number] Description:INV Screw Hex Int Rc Bl 6.4x115 [id number] - [id number] Implanted:Qty: 1 on 09/07/2018 by Colt Garza MD at [facility] Explanted:Qty: 1 on 03/30/2019 by Colt Garaz MD at [facility] Screw Right: Femur [employer] 12/08/2019 [id number] / / [id number] Description:INV Screw Trgn Lp 5.0x52.5mm [id number] - [id number] Implanted:Qty: 1 on 09/07/2018 by Colt Garza MD at [facility] Explanted:Qty: 1 on 03/30/2019 by Colt Garza MD at [facility] Screw Right: Femur [employer] 03/13/2028 [id number] / / [id number] Description:INV Screw Trgn Lp 5.0x47.5mm [id number] - [id number] Implanted:Qty: 1 on 09/07/2018 by Colt Garza MD at [facility] Explanted:Qty: 1 on 03/30/2019 by Colt Garza MD at [facility] Screw Right: Femur [employer] 02/03/2028 [id number] / / [id number] Description:INV Procedures Procedure Name Priority Date/Time Associated Diagnosis Comments HEMOGLOBIN A1C Stat 03/31/2019 10:06 AM CDT LIPID PANEL Stat 01/04/2012 9:00 PM CDT SICK [ICD-9-CM] from Last 3 Months or Most Recently Relevant to Health Maintenance Results * (ABNORMAL) HEMOGLOBIN A1C (03/31/2019 10:06 AM CDT) HEMOGLOBIN A1C 11.4(H) See comment % 03/31/2019 12:05 PM CDT [facility] EST. AVG GLUCOSE, A1C 280 mg/dL 03/31/2019 12:05 PM CDT [facility] Blood BLOOD SPECIMEN / Unknown Venipuncture / Unknown 03/31/2019 10:06 AM CDT 03/31/2019 10:33 AM CDT [facility] - 03/31/2019 12:05 PM CDT HGB A1C INTERPRETATION NORMAL: <5.7% PRE-DIABETES: 5.7 - 6.4% DIABETES: 6.5% OR GREATER Priya Tomas MD CHEMISTRY ORDERAB LES Final Result [facility] CLIA# [id number] [facility] [place] [address] * (ABNORMAL) LIPID PANEL (01/04/2012 9:00 PM CDT) CHOLESTEROL 231(H) 130 - 200 mg/dL 01/04/2012 11:32 PM CDT [facility] TRIGLYCERIDE 108 30 - 200 mg/dL 01/04/2012 11:32 PM T [facility] HDL 51 35 - 80 mg/dL 01/04/2012 11:32 PM CDT [facility] LDL CALCULATED 158(H) 0 - 100 mg/dL 01/04/2012 11:32 PM CDT [facility] Blood specimen (specimen) 01/04/2012 9:00 PM CDT 01/04/2012 11:02 PM CDT [facility] - 01/04/2012 11:32 PM CDT TOTAL CHOLESTEROL mg/dL Desirable <200 Borderline high 200-239 High >=240 TRIGLYCERIDES mg/dL Normal <150 Borderline high 150-199 High 200-499 Very high >=500 HDL CHOLESTEROL mg/dL Low <40 Normal 40-60 Desirable >60 LDL CHOLESTEROL mg/dL Optimal <100 Low risk 100-129 Borderline high 130-159 High 160-189 Very high >=190 Based on AHA/NCEP Guidelines Chelsey Garcia [place] MANAGER SECONDARY CHEMISTRY ORDERABLES Final Result [facility] CLIA # [id number] [address] [facility] [address] [place] [address] from Last 3 Months or Most Recently Relevant to Health Maintenance Insurance [facility] Medicare Part D [employer] PLUS [id number] O Advance Directives For more information, please contact: [phone] * Full Code (Latest Code Status on [...] 12:46 AM 04/05/2016 7:09 PM Care Teams Mixing House Operator Relationship Specialty Start Date End Date Osmani Contreras MD [address] [place] [address] PCP - General Family Practice 12/04/15
--- OUTSIDE RECORDS SUMMARY | 2025-05-24 17:19 | XMS_ITS | Encounter Summary ---
Author Organization [facility] Address [address] [place] [address] Care Team Providers Care Shop Estimator Name Role Phone Osmani Contreras MD Primary Care Provider [phone] Encounter Details Date Type Department Care Team (Late st Contact Info) Description 05/16/2025 External Device Data [place] ABSTRACTION Provider, Abstract NO ADDRESS ON FILE Social History Tobacco Use Types Packs/Day Years Used Date Smoking Tobacco: Former Cigarettes Q uit: 12/28/2012 Smokeless Tobacco: Current Chew Alcohol Use Standard Drinks/Week Comments Yes 0 (1 standard drink = 0.6 oz pur e alcohol) Sex and Gender Information Value Date Recorded Sex Assigned at Not on file Legal Sex Male 7:30 AM TUBE WINDER Gender Identity Not on file Sexual Orientation Not on file documented as of this encounter Plan of Treatment Upcoming Encounters Date Type Department Care Team (Late Contact Info) Description 08/09/2025 12:50 PM CDT Office Visit [facility] [place] [address] [address] Carol Morales MD [address] [place] [address] documented as of this encounter Visit Diagnoses Not on filedocumented in this encounter Care Teams Shop Estimator Relationship Specialty Start Date End Date Osmani Contreras MD [address] [place] [address] PCP - General Family Practice 12/04/15 documented as of this encounter
--- OUTSIDE RECORDS SUMMARY | 2025-05-24 17:19 | XMS_ITS | Encounter Summary ---
Author Organization [facility] Address [address] [place] [address] Care Team Providers Care Practice Director Name Role Phone Osmani Contreras MD Primary Care Provider [phone] Encounter Details Date Type Department Care Team ([facility] st Contact Info) Description 07/25/2004 Outpatient Historical [facility] [address] [place] [phone] Sarwat Naidu MD [address] [place] [address] Social History Tobacco Use Types Packs/Day Years Used Date Smoking Tobacco: Never Assessed Sex and Gender Information Value Date Recorded Sex Assigned at Not on file Legal Sex Male 3:06 AM PRESSER FIRST Gender Identity Not on file Sexual Orientation Not on file documented as of this encounter Plan of Treatment Not on file documented as of this encounter Visit Diagnoses Not on filedocumented in this encounter Additional Health Concerns Infection Onset Date Last Indicated Resolved Time C Diff Comment:Resolved 09/08/2018, Infection Prevention 03/11/16 ([facility]) 03/25/2016 03/25/2016 8 7:46 AM PRESSER FIRST documented as of this encounter Care Teams Practice Director Relationship Specialty Start Date End Date Osmani Contreras MD [address] [place] [address] PCP - General Family Practice 12/04/15 documented as of this encounter
--- OUTSIDE RECORDS SUMMARY | 2025-05-24 17:19 | XMS_ITS | Encounter Summary ---
Author Organization [facility] Address [address] [place] [address] Care Team Providers Care General Office Dispatcher Name Role Phone Osmani Contreras MD Primary Care Provider [phone] Encounter Details Date Type Department Care Team (Latest Contact Info) Description 08/20/1999 Outpatient Historical [facility] Bharathi Walker MD [address] [facility] [address] [place] [address] Hernia of unspecified site of abdominal cavity without mention of obstruction or gangrene (Primary Dx) Social History Tobacco Use Types Packs/Day Years Used Date Smoking Tobacco: Never Assessed Sex and Gender Information Value Date Recorded Sex Assigned at Not on file Legal Sex Male 3:06 AM SUPERVISOR VAT HOUSE Gender Identity Not on file Sexual Orientation [...] Diff Comment:Resolved 09/08/2018, Infection Prevention 03/11/16 ([facility]) 03/25/2016 03/25/2016 8 7:46 AM SUPERVISOR VAT HOUSE documented as of this encounter Care Teams General Office Dispatcher Relationship Specialty Start Date End Date Osmani Contreras MD [address] [place] [address] PCP - General Family Practice 12/04/15 documented as of this encounter
--- OUTSIDE RECORDS SUMMARY | 2025-05-24 17:19 | XMS_ITS | Encounter Summary ---
Author Organization [facility] Address [address] [place] [address] Care Team Providers Care Manager Business Information Name Role Phone Osmani Contreras MD Primary Care Provider [phone] Encounter Details Date Type Department Care Team (Latest Contact Info) Description 09/08/2004 Outpatient Historical [facility] [address] [place] [phone] Sarwat Naidu MD [address] [place] [phone] ABDOMINAL PAIN UNSPEC SITE (Primary Dx); HYPERTENSION NOS Social History Tobacco Use Types Packs/Day Years Used Date Smoking Tobacco: Never Assessed Sex and Gender Information Value Date Recorded Sex Assigned at Not on file Legal Sex Male 3:06 AM COOLER ROOM WORKER Gender Identity Not on file Sexual Orientation Not on file documented as of this encounter Plan of Treatment Not on file documented as of this encounter Visit Diagnoses Diagnosis Abdominal pain, unspecified site- Primary Unspecified essential hypertension documented in this encounter Additional Health Concerns Infection Onset Date Last Indicated Resolved Time C Diff Comment:Resolved 09/08/2018, Infection Prevention 03/11/16 ([facility]) 03/25/2016 03/25/2016 8 7:46 AM COOLER ROOM WORKER documented as of this encounter Care Teams Manager Business Information Relationship Specialty Start Date End Date Osmani Contreras MD [address] [place] [address] PCP - General Family Practice 12/04/15 documented as of this encounter
--- OUTSIDE RECORDS SUMMARY | 2025-05-24 17:19 | XMS_ITS | Encounter Summary ---
Author Organization [facility] Address [address] [place] [address] Care Team Providers Care Title Vehicle Service Attendant Name Role Phone Osmani Contreras MD Primary Care Provider [phone] Encounter Details Date Type Department Care Team (Latest Contact Info) Description 09/16/2004 Outpatient Historical [facility] [place] [address] [place] [address] Theodore Lugo MD [address] [place] [address] REFLUX ESOPHAGITIS (Primary Dx) Social History Tobacco Use Types Packs/Day Years Used Date Smoking Tobacco: Never Assessed Sex and Gender Information Value Date Recorded Sex Assigned at Not on file Legal Sex Male 3:06 AM WANT AD RECEIVER Gender Identity Not on file Sexual Orientation Not on file documented as of this encounter Plan of Treatment Not on file documented as of this encounter Visit Diagnoses Diagnosis Reflux esophagitis- Primary documented in this encounter Additional Health Concerns Infection Onset Date Last Indicated Resolved Time C Diff Comment:Resolved 09/08/2018, Infection Prevention 03/11/16 ([facility]) 03/25/2016 03/25/2016 8 7:46 AM WANT AD RECEIVER documented as of this encounter Care Teams Title Vehicle Service Attendant Relationship Specialty Start Date End Date Osmani Contreras MD [address] [place] [address] PCP - General Family Practice 12/04/15 documented as of this encounter
--- OUTSIDE RECORDS SUMMARY | 2025-05-24 17:19 | XMS_ITS | Encounter Summary ---
Author Organization [facility] Address [address] [place] [address] Care Team Providers Care Interactive Digital Media Specialist Name Role Phone Osmani Contreras MD Primary Care Provider [phone] Encounter Details Date Type Department Care Team (Latest Contact Info) Description 07/25/2004 Outpatient [facility] [address] [place] [phone] Sarwat Naidu MD [address] [place] [address] HYPERTENSION NOS (Primary Dx) Social History Tobacco Use Types Packs/Day Years Used Date Smoking Tobacco: Never Assessed Sex and Gender Information Value Date Recorded Sex Assigned at Not on file Legal Sex Male 3:06 AM WATER PURIFIER Gender Identity Not on file Sexual Orientation Not on file documented as of this encounter Plan of Treatment Not on file documented as of this encounter Visit Diagnoses Diagnosis Unspecified essential hypertension- Primary documented in this encounter Additional Health Concerns Infection Onset Date Last Indicated Resolved Time C Diff Comment:Resolved 09/08/2018, Infection Prevention 03/11/16 ([facility]) 03/25/2016 03/25/2016 8 7:46 AM WATER PURIFIER documented as of this encounter Care Teams Interactive Digital Media Specialist Relationship Specialty Start Date End Date Osmani Contreras MD [address] [place] [address] PCP - General Family Practice 12/04/15 documented as of this encounter
--- OUTSIDE RECORDS SUMMARY | 2025-05-24 17:19 | XMS_ITS | Encounter Summary ---
Author Organization [facility] Address [address] [place] [address] Care Team Providers Care Knife Changer Name Role Phone Osmani Contreras MD Primary Care Provider [phone] Encounter Details Date Type Department Care Team (Late st Contact Info) Description 01/11/2012 Ancillary Orders [facility] [place] [address] [place] [address] DM (diabetes mellitus) ([facility]) Social History Tobacco Use Types Packs/Day Years Used Date Smoking Tobacco: Never Assessed Sex and Gender Information Value Date Recorded Sex Assigned at Not on file Legal Sex Male 3: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 AVG GLUCOSE, A1C 355 mg/dL 01/12/2012 1:01 AM CDT [facility] Blood specimen (specimen) 01/11/2012 10:05 PM CDT 01/11/2012 11:13 PM CDT us Osmani Contreras MD CHEMISTRY ORDERABLES Final Resu lt [facility] CLIA # [id number] [address] [facility] [address] [place] [address] documented in this encounter Visit Diagnoses Diagnosis DM (diabetes mellitus) ([facility]) Type II or unspecified type diabetes mellitus without mention of complication, not stated as uncontrolled documented in this encounter Additional Health Concerns Infection Onset Date Last Indicated Resolved Time C Diff Comment:Resolved 09/08/2018, Infection Prevention 03/11/16 ([facility]) 03/25/2016 03/25/2016 8 7:46 AM MANAGEMENT INFORMATION SYSTEMS DIRECTOR documented as of this encounter Care Teams Knife Changer Relationship Specialty Start Date End Date Osmani Contreras MD [address] [place] [address] PCP - General Family Practice 12/04/15 documented as of this encounter
--- OUTSIDE RECORDS SUMMARY | 2025-05-24 17:19 | XMS_ITS | Encounter Summary ---
Author Organization [facility] Address [address] [place] [address] Care Team Providers Care Manager Behavior Name Role Phone Osmani Contreras MD Primary Care Provider [phone] Encounter Details Date Type Department Care Team (Latest Contact Info) Description 08/04/1999 Outpatient Historical [facility] Bharathi Walker MD [address] [facility] [address] [place] [address] Abdominal pain, right upper quadrant (Primary Dx); Abdominal pain, epigastric Social History Tobacco Use Types Packs/Day Years Used Date Smoking Tobacco: Never Assessed Sex and Gender Information Value Date Recorded Sex Assigned at Not on file 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 Sex 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 Gender Identity Not on file Sexual Orientation Not on file documented as of this encounter Plan of Treatment Not on file documented as of this encounter Visit Diagnoses Diagnosis Abdominal pain, right upper quadrant- Primary Abdominal pain, epigastric documented in this encounter Additional Health Concerns Infection Onset Date Last Indicated Resolved Time C Diff Comment:Resolved 09/08/2018, Infection Prevention 03/11/16 ([facility]) 03/25/2016 03/25/2016 8 7:46 AM NATURAL RESOURCES EXTENSION EDUCATOR documented as of this encounter Care Teams Manager Behavior Relationship Specialty Start Date End Date Osmani Contreras MD [address] [place] [address] PCP - General Family Practice 12/04/15 documented as of this encounter
--- OUTSIDE RECORDS SUMMARY | 2025-05-24 17:19 | XMS_ITS | Encounter Summary ---
Author Organization [facility] Address [address] [place] [address] Care Team Providers Care Smash Hand Name Role Phone Osmani Contreras MD Primary Care Provider [phone] Encounter Details Date Type Department Care Team (Latest Contact Info) Description 09/16/2004 Outpatient [facility] [place] [address] [facility] [address] [place] [address] Theodore Lugo MD [address] [place] [address] ABDOMINAL PAIN EPIGASTRIC (Primary Dx); HEARTBURN; REFLUX ESOPHAGITIS Social History Tobacco Use Types Packs/Day Years Used Date Smoking Tobacco: Never Assessed Sex and Gender Information Value Date Recorded Sex Assigned at Not on file Legal Sex Male 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 AM 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 Gender Identity Not on file Sexual Orientation Not on file documented as of this encounter Plan of Treatment Not on file documented as of this encounter Visit Diagnoses Diagnosis Abdominal pain, epigastric- Primary Heartburn Reflux esophagitis documented in this encounter Additional Health Concerns Infection Onset Date Last Indicated Resolved Time C Diff Comment:Resolved 09/08/2018, Infection Prevention 03/11/16 ([facility]) 03/25/2016 03/25/2016 8 7:46 AM 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 documented as of this encounter Care Teams Smash Hand Relationship Specialty Start Date End Date Osmani Contreras MD [address] [place] [address] PCP - General Family Practice 12/04/15 documented as of this encounter
--- OUTSIDE RECORDS SUMMARY | 2025-05-24 17:19 | XMS_ITS | Clinical Summary ---
Author Organization [facility] Address [address] [facility] Attn: [place] [address] Care Team Providers Care Barrel Drum Cutter Name Role Phone Osmani Contreras MD Primary Care Provider [phone] Allergies Active Allergy Reactions Criticality Noted Date [...] differently: 100 mgOralTWO TIMES DAILY, Reported on 05/10/2025 Saccharomyces boulardii (FLORASTOR) 250 mg Capsule Take 1 Capsule (250 mg) by mouth 2 times daily. 60 Capsule 0 9 Active traZODone (DESYREL) 50 mg tablet Take 1 Tablet (50 mg) by mouth nightly as needed for Insomnia. 30 Tablet 0 6 Active Additional Information Patient taking differently: 100 mgOral NIGHTLY PRN, Reported on 05/10/2025 cyclobenzaprin e (FLEXERIL) 10 mg tablet Take 1 Tablet (10 mg) by mouth 3 times daily as needed for Spasm. 30 Tablet 0 6 Active OTHER GAMBRELER HELPER/GRABBER. 1 Each 0 6 Active albuterol sulfate [...] 2 Active fluticasone propionate (FLONASE) 50 mcg/spray Valentine, Suspension nasal inhaler 2 Active aspirin (ECOTRIN EC) 81 mg Tablet, Delayed Release (E.C.) Take 81 mg by mouth daily. Active Alpha Lipoic Acid 200 mg Tablet Take 1 Tablet by mouth 2 times daily. 4 Active busPIRone (BUSPAR) 10 mg tablet Take 1 Tablet by mouth 2 times daily. 4 Active Wzmkfwfb-RWY-9 0.1 mg/24 hr patch Apply 1 Patch [...] mg tabletIndicati ons:ESRD (end stage renal disease) (CMS/[facility]) Take 1 Tablet by mouth every 4 [...] (02/06/2021): Added automatically from request for surgery [id number] Chronic left-sided low back pain without sciatic [...] Encounters Date Type Department Care Team Description 05/16/2025 External Device Data STL ABSTRACTION Provider, Abstract 05/10/2025 10:00 AM CDT - 05/10/2025 11:59 PM CDT Hospital Encounter [facility] Interventional Radiology [address] [place] [address] Francoise Kinney MD Hegg, Sanjeev Gates MD Discharge Disposition: Home or Self Care 05/09/2025 Telephone [facility] Interventional Radiology [address] [place] [phone] Josefa Seay, retort pre cooker 04/25/2025 External Device Data STL ABSTRACTION Provider, Abstract 04/25/2025 External Device Data STL ABSTRACTION Provider, Abstract 04/16/2025 Telephone [facility] Vascular Surgery [address] [address] Francoise Kinney MD Question 04/12/2025 Telephone [facility] Interventional Radiology [id number] [place] [address] Josefa Seay, retort pre cooker (Nurse attempted to call pt to give instructions for fistulogram on 04/16/25. Pt did not answer at 1422 and 1445) 03/28/2025 External Device Data STL ABSTRACTION Provider, Abstract 03/27/2025 External Device Data STL ABSTRACTION Provider, Abstract 03/20/2025 Telephone [facility] Vascular Surgery [address] [phone] Francoise Kinney MD Clinical Consult Before Scheduling 03/20/2025 Orders Only [facility] Vascular [address] [phone] Francoise Kinney MD ESRD (end stage renal disease) ([facility]) (Primary Dx) 03/15/2025 3:30 PM CDT Office Visit [facility] Vascular [address] [phone] Francoise Kinney MD AV fistula stenosis, subsequent encounter (Primary Dx); ESRD (end stage renal disease) ([facility]/HCC) 03/13/2025 Telephone [facility] Vascular [address] [phone] Francoise Kinney MD Needs Appointment 03/07/2025 Telephone [facility] [address] [address] Francoise Kinney MD Question 03/02/2025 External Device Data STL ABSTRACTION Provider, Abstract 02/28/2025 External Device Data STL ABSTRACTION Provider, Abstract 02/27/2025 External Device Data STL ABSTRACTION Provider, Abstract from Last 3 Months Immunizations Immunization Administration [...] on file Legal Sex Male 7:30 AM STRAWHAT SIZER Gender Identity Not on file Sexual Orientation Not on file Last Filed Vital Signs Vital Sign Reading Time Taken Comments Blood Pressure 132/73 05/10/2025 1:13 PM CDT Pulse 75 05/10/2025 1:13 PM CDT Temperature 36.9 C (98.5 F) 05/10/2025 1:13 PM CDT Respiratory Rate 16 05/10/2025 12:55 PM CDT Oxygen Saturation 93% 05/10/2025 12:55 PM CDT Inhaled Oxygen Concentration - - Weight 100.7 kg (222 lb) 05/10/2025 10:26 AM CDT Height 198.1 cm (6' 6 ) 05/10/2025 10:26 AM CDT Body Mass Index 25.65 05/10/2025 10:26 AM CDT Plan of Treatment Upcoming Encounters Date Type Department Care Team (Late st Contact Info) Description 08/09/2025 12:50 PM CDT Office Visit [facility] [place] [address] [place] [address] Carol Mroales MD [address] [place] [address] Health Maintenance Due Date Last Done [...] 03/31/2019, 03/31/2019, Additional history exists COVID-19 Vaccine ( - 2023-2 5 season) 2024 06/15/2021, 05/18/2021 INFLUENZA VACCINE (#1) 2025 , 07/25/2018, 09/21/2015 DIABETES ANNUAL RETINAL EXAM 08/10/2025, 08/10/2024, 08/10/2024, Additional history exists Abdominal Aortic Aneurysm (A AA) Screening Completed 03/22/2016 Medical Devices Implanted Type Area Agriculture Laborer Device Identifier Shelf Expiration Date Model / Serial / Lot Clip Ligating Horizon Med Ti [id number] - Csc - [id number] Implanted:Qty: 1 on 12/28/2024 by Francoise Kinney MD at [facility] Clip Left: Arm TELEFLEX- WECK CLOSURE SYS [id number] 07/18/2029 [id number] / / [id number] Clip Ligating Horizon Red [id number] - Csc - [id number] Implanted:Qty: 1 on 12/28/2024 by Francoise Kinney MD at [facility] Clip Left: Arm TELE[employer]LEX INC [id number] 09/02/2029 [id number] / / [id number] Coil Emb María .035 6mm 14cm Micro Pltnm [id number] - [id number] Implanted:Qty: 1 on 05/10/2025 by Sanjeev Espinosa MD at [facility] Coil Left: Vein COOK- INTERVENTIONAL RAD [id number] 02/22/2030 [id number] / / [id number] Coil Emb María .035 6mm 14cm Micro Pltnm [id number] - [id number] Implanted:Qty: 1 on 05/10/2025 by Sanjeev Espinosa MD at [facility] Coil Left: Vein COOK- INTERVENTIONAL RAD [id number] 02/12/2030 [id number] / / [id number] Coil Interlock-35 360 6.6vlm89ua [id number] - [id number] Implanted:Qty: 1 on 05/10/2025 by Sanjeev Espinosa MD at [facility] Coil Left: Vein [employer]- NEUROVASC [id number] 04/14/2027 [id number] / / [id number] Coil Emb María .035 6mm 14cm Micro Pltnm [id number] - [id number] Implanted:Qty: 1 on 05/10/2025 by Sanjeev Espinosa MD at [facility] Coil Left: Vein COOK- INTERVENTIONAL RAD [id number] 02/12/2030 [id number] / / [id number] Coil Emb María .035 6mm 14cm Micro Pltnm [id number] - [id number] Implanted:Qty: 1 on 05/10/2025 by Sanjeev Espinosa MD at [facility] Coil Left: Vein COOK- INTERVENTIONAL RAD [id number] 02/12/2030 [id number] / / [id number] Coil Emb María .035 6mm 14cm Micro Pltnm [id number] - [id number] Implanted:Qty: 1 on 05/10/2025 by Sanjeev Espinosa MD at [facility] Coil Left: Vein COOK- INTERVENTIONAL RAD [id number] 02/12/2030 [id number] / / [id number] Coil Emb María .035 6mm 14cm Micro Pltnm [id number] - [id number] Implanted:Qty: 1 on 05/10/2025 by Sanjeev Espinosa MD at [facility] Coil Left: Vein COOK- INTERVENTIONAL RAD [id number] 02/12/2030 [id number] / / [id number] Coil Emb María .035 6mm 14cm Micro Pltnm [id number] - [id number] Implanted:Qty: 1 on 05/10/2025 by Sanjeev Espinosa MD at [facility] Coil Left: Vein COOK- INTERVENTIONAL RAD [id number] 02/22/2030 [id number] / / [id number] Screw Hex Int Rc Bl 6.4x110 [id number] - [id number] Implanted:Qty: 1 on 03/30/2019 by Colt Garza MD Screw Right: Femur FOWLER NEPHEW ORTHO 07/30/2025 [id number] / / [id number] Screw Hex Int Rc Bl 6.4x115 [id number] - [id number] Implanted:Qty: 1 on 03/30/2019 by Colt Garza MD Screw Right: Femur FOWLER NEPHEW ORTHO 01/08/2022 [id number] / / [id number] Screw Trgn Lp 5.0x50mm 0828-7719 - [id number] Implanted:Qty: 1 on 03/30/2019 by Colt Garza MD Screw Right: Femur FOWLER NEPHEW ORTHO 02/11/2029 [id number] / / [id number] Screw Trgn Lp 5.0x60mm 3012-6857 - [id number] Implanted:Qty: 1 on 03/30/2019 by Colt Garza MD Screw Right: Femur FOWLER NEPHEW ORTHO 10/11/2026 [id number] / / [id number] Nail Implanted:Qty: 1 on 03/30/2019 by Colt Garza MD Right: Femur FOWLER NEPHEW ORTHO 08/10/2020 [id number] / / [id number] Explanted Type Area Agriculture Laborer Device Identifier Shelf Expiration Date Model / Serial / Lot Nail Fan Jud Rt [id number] - [id number] Implanted:Qty: 1 on 09/07/2018 by Colt Garza MD Explanted:Qty: 1 on 03/30/2019 by Colt Garza MD Nail Right: Femur FOWLER NEPHEW ORTHO 10/04/2025 [id number] / / [id number] Description:INV Screw Hex Int Rc Bl 6.4x110 [id number] - [id number] Implanted:Qty: 1 on 09/07/2018 by Colt Garza MD Explanted:Qty: 1 on 03/30/2019 by Colt Garza MD Screw Right: Femur FOWLER NEPHEW ORTHO 05/19/2027 [id number] / / [id number] Description:INV Screw Hex Int Rc Bl 6.4x115 [id number] - [id number] Implanted:Qty: 1 on 09/07/2018 by Colt Garza MD Explanted:Qty: 1 on 03/30/2019 by Colt Garza MD Screw Right: Femur FOWLER NEPHEW ORTHO 12/08/2019 [id number] / / [id number] Description:INV Screw Trgn Lp 5.0x47.5mm 2550-2553 - [id number] Implanted:Qty: 1 on 09/07/2018 by Colt Garza MD Explanted:Qty: 1 on 03/30/2019 by Colt Garza MD Screw Right: Femur FOWLER NEPHEW ORTHO 02/03/2028 [id number] / / [id number] Description:INV Screw Trgn Lp 5.0x52.5mm 2136-6434 - [id number] Implanted:Qty: 1 on 09/07/2018 by Colt Garza MD Explanted:Qty: 1 on 03/30/2019 by Colt Garza MD Screw Right: Femur FOWLER NEPHEW ORTHO 03/13/2028 [id number] / / [id number] Description:INV Procedures Procedure Name Priority Date/Time Associated Diagnosis Comments IR FISTULOGRAM Routine 05/10/2025 12:31 PM CDT ESRD (end stage renal disease) ([facility]) HEMOGLOBIN A1C Routine 03/31/2019 10:[address] ABDOMEN PELVIS WO CONTRAST IP Routine 03/22/2016 10:33 PM CDT from Last 3 Months or Most Recently Relevant to Health Maintenance Results * IR FISTULOGRAM (05/10/2025 12:31 PM CDT) Anatomical Region Laterality Modality X-Ray Angiograph y 05/10/2025 12:3 1 PM CDT Impressions 05/10/2025 2:51 PM CDT IMPRESSION: 1. Mild venous outflow stenosis treated with angioplasty. 2. Large proximal competing branch vein which was embolized with coils. I, Dr. Sanjeev Espinosa, certify that I was present for the entire procedure. Narrative 05/10/2025 2:51 PM CDT PROCEDURES: Ultrasound guided access of the left upper extremity fistula. Left upper extremity fistulogram. Angioplasty of a mild venous outflow stenosis in the arm. Coil embolization of a large competing branch vein in the arm. Moderate conscious sedation. HISTORY: Recently fistula, not functioning at OPERATORS: Dr. Sanjeev Espinosa. HAND HYGIENE: Soap and water. Avagard. BARRIER PRECAUTIONS: Maximum sterile barrier with operators fully gowned with mask, gowns and gloves. A full sterile drape was placed on the patient. Hand hygiene was performed with alcohol-based and rub antiseptic. Sterile single use ultrasound gel was used for the procedure during ultrasound guidance. CONSENT: The procedures as well as their risks, benefits, and alternatives were discussed in detail with the patient, and the patient given the opportunity to ask any questions. Written informed consent was then obtained. ESTIMATED BLOOD LOSS: 5 mL PROCEDURE DETAILS: Patient's left upper extremity dialysis fistula was prepped and draped in the usual sterile fashion with 2% chlorhexidine. Preprocedural timeout was performed. Versed and fentanyl were given IV by a radiology nurse who is a trained independent observer dedicated to patient monitoring during moderate sedation under my supervision. 1% lidocaine was infiltrated over the left upper extremity dialysis fistula for local anesthesia. Ultrasound was used and the left dialysis fistula was found to be patent. Next, under direct ultrasound visualization, the left upper extremity dialysis fistula was accessed with a 21 gauge micropuncture needle and a 0.018 wire was advanced into the venous outflow and a respective image was stored. The needle was exchanged for a micropuncture sheath. The indwelling 3 Fr dilator and 0.018 wire were removed and a 0.035 Glidewire was advanced through the micropuncture sheath into the venous outflow. Next, over a glide wire the micropuncture sheath was exchanged for a 6 Algerian vascular sheath. Fistulogram was performed through the sheath. Next, an 8 mm angioplasty balloon was advanced over the Glidewire and angioplasty was performed of the mild venous outflow stenosis in the arm. Follow-up venogram was performed. Next, an additional access was obtained with ultrasound guidance directed toward the arterial anastomosis with the micropuncture sheath and this was exchanged over the wire for a 5 Algerian vascular sheath.. The arterial anastomosis was crossed with a Berenstein catheter and Glidewire and the Glidewire was removed. Completion fistulogram was performed. Next, a large competing branch vein was selected and venogram performed within this. Next through the Berenstein catheter the two main branches of this competing vein were embolized with 035 coils. Follow-up venogram was performed. The catheter was removed. Access sheaths were removed and purse string sutures applied for hemostasis. The access sites were dressed with sterile dressing. The patient tolerated the procedure well with no immediate complications and was in stable condition at the completion of the procedure. FINDINGS: Mild venous outflow stenosis in the arm treated with 8 mm balloon angioplasty. No other venous outflow stenoses in the arm. No central venous stenoses. No arterial anastomotic stenosis. Prominent collateral venous flow in the arm, there is a large proximal competing vein nearly immediately bifurcates, both of the main branches of this competing vein were embolized with coils. Procedure Note Sanjeev Espinosa MD - 05/10/2025 PROCEDURES: Ultrasound guided access of the left upper extremity fistula. Left upper extremity fistulogram. Angioplasty of a mild venous outflow stenosis in the arm. Coil embolization of a large competing branch vein in the arm. Moderate conscious sedation. HISTORY: Recently fistula, not functioning at OPERATORS: Dr. Sanjeev Espinosa. HAND HYGIENE: Soap and water. Avagard. BARRIER PRECAUTIONS: Maximum sterile barrier with operators fully gowned with mask, gowns and gloves. A full sterile drape was placed on the patient. Hand hygiene was performed with alcohol-based and rub antiseptic. Sterile single use ultrasound gel was used for the procedure during ultrasound guidance. CONSENT: The procedures as well as their risks, benefits, and alternatives were discussed in detail with the patient, and the patient given the opportunity to ask any questions. Written informed consent was then obtained. ESTIMATED BLOOD LOSS: 5 mL PROCEDURE DETAILS: Patient's left upper extremity dialysis fistula was prepped and draped in the usual sterile fashion with 2% chlorhexidine. Preprocedural timeout was performed. Versed and fentanyl were given IV by a radiology nurse who is a trained independent observer dedicated to patient monitoring during moderate sedation under my supervision. 1% lidocaine was infiltrated over the left upper extremity dialysis fistula for local anesthesia. Ultrasound was used and the left dialysis fistula was found to be patent. Next, under direct ultrasound visualization, the left upper extremity dialysis fistula was accessed with a 21 gauge micropuncture needle and a 0.018 wire was advanced into the venous outflow and a respective image was stored. The needle was exchanged for a micropuncture sheath. The indwelling 3 Fr dilator and 0.018 wire were removed and a 0.035 Glidewire was advanced through the micropuncture sheath into the venous outflow. Next, over a glide wire the micropuncture sheath was exchanged for a 6 Algerian vascular sheath. Fistulogram was performed through the sheath. Next, an 8 mm angioplasty balloon was advanced over the Glidewire and angioplasty was performed of the mild venous outflow stenosis in the arm. Follow-up venogram was performed. Next, an additional access was obtained with ultrasound guidance directed toward the arterial anastomosis with the micropuncture sheath and this was exchanged over the wire for a 5 Algerian vascular sheath.. The arterial anastomosis was crossed with a Berenstein catheter and Glidewire and the Glidewire was removed. Completion fistulogram was performed. Next, a large competing branch vein was selected and venogram performed within this. Next through the Berenstein catheter the two main branches of this competing vein were embolized with 035 coils. Follow-up venogram was performed. The catheter was removed. Access sheaths were removed and purse string sutures applied for hemostasis. The access sites were dressed with sterile dressing. The patient tolerated the procedure well with no immediate complications and was in stable condition at the completion of the procedure. FINDINGS: Mild venous outflow stenosis in the arm treated with 8 mm balloon angioplasty. No other venous outflow stenoses in the arm. No central venous stenoses. No arterial anastomotic stenosis. Prominent collateral venous flow in the arm, there is a large proximal competing vein nearly immediately bifurcates, both of the main branches of this competing vein were embolized with coils. IMPRESSION: 1. Mild venous outflow stenosis treated with angioplasty. 2. Large proximal competing branch vein which was embolized with coils. I, Dr. Sanjeev Espinosa, certify that I was present for the entire procedure. us Francoise Kinney MD IR ORDERABLES Final Result * (ABNORMAL) HEMOGLOBIN A1C (03/31/2019 10:06 AM CDT) HEMOGLOBIN A1C 11.4(H) See comment % 03/31/2019 12:05 PM CDT [facility] Sh[facility] it! [facility] EST. AVG GLUCOSE, A1C 280 mg/dL 03/31/2019 12:05 PM CDT [facility] Blood BLOOD SPECIMEN / Unknown Venipuncture / Unknown 03/31/2019 10:06 AM CDT 03/31/2019 10:33 AM CDT Narrative [facility] - 03/31/2019 12:05 PM CDT HGB A1C INTERPRETATION NORMAL: <5.7% PRE-DIABETES: 5.7 - 6.4% DIABETES: 6.5% OR GREATER Priya Tomas MD CHEMISTRY ORDERAB LES Final Result Performing Organization Address City/State/[facility] Co de Phone Number [facility] CLIA# [id number] [address] [place] [address] [facility] CLIA# [id number] [address] [place] [id number] * CT ABDOMEN PELVIS WO CONTRAST (03/22/2016 [...] Most Recently Relevant to Health Maintenance Insurance [address] [place] [id number] [facility] DUAL COMPLETE HMO DSNP [facility] [id number] * Guarantor: ABIMAEL SAHU Account Type Relation to Patient Date of Phone Billing Address Personal/Family [id number] [place] [id number] [employer] Medicare Part D Advance Directives For more information, please contact: [phone] * Full Code (Latest Code Status on File) Date Activated Date Inactivated Comments 12/28/2024 5:56 AM 12/28/2024 12:08 PM Care Teams Barrel Drum Cutter Relationship Specialty Start Date End Date Osmani Contreras MD [address] [place] [address] PCP - General Family Practice 12/04/15
--- OUTSIDE RECORDS SUMMARY | 2025-05-24 17:19 | XMS_ITS | Encounter Summary ---
Author Organization [facility] Address [address] [place] [address] Care Team Providers Care Sheet Metal Worker Name Role Phone Osmani Contreras MD Primary Care Provider [phone] Encounter Details Date Type Department Care Team (Latest Contact Info) Description 08/15/2004 [facility] [address] [place] [phone] Sarwat Naidu MD [address] [place] [phone] HYPERTENSION NOS (Primary Dx) Social History Tobacco Use Types Packs/Day Years Used Date Smoking Tobacco: Never Assessed Sex and Gender Information Value Date Recorded Sex Assigned at Not on file 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 Gender Identity Not on file Sexual Orientation Not on file documented as of this encounter Plan of Treatment Not on file documented as of this encounter Visit Diagnoses Diagnosis Unspecified essential hypertension- Primary documented in this encounter Additional Health Concerns Infection Onset Date Last Indicated Resolved Time C Diff Comment:Resolved 09/08/2018, Infection Prevention 03/11/16 ([facility]) 03/25/2016 03/25/2016 8 7:46 AM 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
--- OUTSIDE RECORDS SUMMARY | 2025-05-24 17:19 | XMS_ITS | Encounter Summary ---
Author Organization [facility], [facility] Address [address] [place] [address] Phone Care Team Providers Care Supervisory Training Specialist Name Role Phone Unavailable Primary Care Provider Unavailabl e Reason for Visit * Reason Comments Med Refill Encounter Details Date Type Department Care Team (Late st Contact Info) Description 07/17/2024 Refill [place] [employer], [facility] [address] [place] [address] Shannon Cochran MD [address] [place] [address] Social History Tobacco Use Types [...] Date/Time Associated Diagnosis Comments HD KINETICS Routine 08/16/2024 POST CHEMISTRY Routine 08/16/2024 IMMUNO CHEMISTRY Routine 08/16/2024 HEMATOLOGY Routine 08/16/2024 CHEMISTRY Routine 08/16/2024 HEMATOLOGY Routine 08/08/2024 CHEMISTRY Routine 08/08/2024 IMMUNO CHEMISTRY Routine 08/02/2024 HEMATOLOGY Routine 08/02/2024 CHEMISTRY Routine 08/02/2024 URINE CLEARANCE Routine 07/31/2024 PATIENT INFORMATION Routine 07/31/2024 PATIENT INFORMATION Routine 07/31/2024 CHEMISTRY Routine 07/31/2024 CHEMISTRY Routine 07/31/2024 HEMATOLOGY Routine 07/26/2024 CHEMISTRY Routine 07/26/2024 TRACE ELEMENTS Routine 07/19/2024 HEMATOLOGY Routine 07/19/2024 CHEMISTRY Routine 07/19/2024 IMMUNO CHEMISTRY Routine 07/17/2024 documented in this encounter Results * HD KINETICS (08/16/2024) % Urea Reduction 69 65 - 80 % [facility] 08/16/2024 08/18/2024 9:1 6 AM SHEET FINISHER Narrative Resulting Agency Comment Specimen source: Plasma Shannon Cochran MD LAB BLOOD ORDERABLES Final Re sult [facility] See order comments or contact performing lab Unknown, [place] * POST CHEMISTRY (08/16/2024) BUN Post Dialysis 10 6 - 19 mg/dL [facility] 08/16/2024 08/18/2024 9:1 6 AM SHEET FINISHER Narrative [facility] - 08/18/2024 Unless otherwise specified, test(s) performed at: [facility], [address] [place] [id number] BUILDING RIGGER: Dar Kang M.D. For any questions, please call customer service at FREQUENCY:MONTHLY Resulting Agency Comment Specimen source: Plasma us Shannon Cochran MD LAB BLOOD ORDERABLES Final Re sult Performing Organization Address City/[facility]/ZIP Co de Phone Number [facility] See order comments or contact performing lab Unknown, [place] * IMMUNO CHEMISTRY (08/16/2024) Pathologist [facility] Hep B Surface Ag Negative Negative [facility] 08/16/2024 08/17/2024 1:3 9 PM SHEET FINISHER Narrative Resulting Agency Comment Specimen source: Serum us Shannon Cochran MD LAB BLOOD ORDERABLES Final Re sult Performing Organization Address [facility] Co de Phone Number [facility] See order comments or contact performing lab Unknown, [place] * (ABNORMAL) [facility] Chemistry (08/16/2024) [facility] BUN 32(H) 6 - 19 mg/dL [facility] Creatinine 5.70(H) 0.60 - 1.30 mg/dL [facility] BUN/Creatinine Ratio 5.6(L) 10.0 - 20.0 [facility] Sodium 135(L) 136 - 145 mEq/L [facility] Potassium 4.4 3.5 - 5.1 mEq/L [facility] Chloride 102 96 - 108 mEq/L [facility] Bicarbonate (CO2) 21(L) 22 - 29 mEq/L [facility] Calcium 8.4 8.4 - 10.2 mg/dL [facility] Corrected Calcium 8.6 8.4 - 10.2 mg/dL [facility] Comment: Corrected Calcium is not equivalent to measured Ionized Calcium. Phosphorus 5.4(H) 2.6 - 4.5 mg/dL [facility] Calcium Phosphorus Product 45 0 - 54 [facility] Calcium Phosporus Product, Cor 46 0 - 54 [facility] Total Protein 6.1 6.0 - 8.5 g/dL [facility] Albumin 3.7 3.5 - 5.2 g/dL [facility] Globulin, Total 2.4 2.0 - 4.0 g/dL [facility] A/G Ratio 1.5 1.0 - 2.0 [facility] Glucose 172(H) 70 - 100 mg/dL [facility] Magnesium 2.1 1.6 - 2.6 mg/dL [facility] Iron 79 45 - 160 mcg/dL [facility] UIBC 182 155 - 355 mcg/dL [facility] TIBC 261 185 - 515 mcg/dL [facility] Iron Saturation (TSat) 30 20 - 55 % [facility] 08/16/2024 08/17/2024 1:3 9 PM SHEET FINISHER Narrative [facility] - 08/17/2024 Unless otherwise specified, test(s) performed at: [facility], [address] [place], [place] [id number] BUILDING RIGGER: Dar Kang M.D. For any questions, please call customer service at FREQUENCY:MONTHLY Resulting Agency Comment Specimen source: Serum Shannon Cochran MD LAB BLOOD ORDERABLES Final Re sult [facility] See order comments or contact performing lab Unknown, [place] * (ABNORMAL) HEMATOLOGY (08/16/2024) Neutrophils 79.7(H) 40.0 - 75.0 % [facility] Lymphocytes Relative 10.1(L) 19.0 - 48.0 % [facility] Monocytes 4.6 3.0 - 10.0 % [facility] Eosinophils Relative 4.4 0.0 - 7.0 % [facility] Basophils Relative 0.5 0.0 - 1.5 % [facility] LENNY 0.7 0.0 - 4.0 % [facility] WBC 6.52 4.80 - 10.80 1000/mcL [facility] RBC 3.75(L) 4.70 - 6.10 mill/mcL [facility] Hematocrit 32.4(L) 42.0 - 52.0 % [facility] MCV 86 80 - 100 fl [facility] MCH 27.8 27.0 - 31.0 pg [facility] MCHC 32.2 30.0 - 36.0 g/dL [facility] RDW 15.6(H) 11.5 - 14.5 % [facility] Hemoglobin 10.4(L) 14.0 - 18.0 g/dL [facility] Hemoglobin x 3 31.2(L) 42.0 - 54.0 % [facility] Platelets 155 130 - 400 1000/mcL [facility] 08/16/2024 08/17/2024 1:4 4 PM SHEET FINISHER Narrative [facility] - 08/17/2024 Unless otherwise specified, test(s) performed at: [facility], [address] [place] [phone] BUILDING RIGGER: Dar Kang M.D. For any questions, please call customer service at FREQUENCY:MONTHLY Resulting Agency Comment Specimen source: Blood us Shannon Cochran MD LAB BLOOD ORDERABLES Final Re sult Performing Organization Address [facility] Co de Phone Number [facility] See order comments or contact performing lab Unknown, [place] * (ABNORMAL) [facility] Chemistry (08/08/2024) BUN 19 6 - 19 mg/dL [facility] Creatinine 3.31(H) 0.60 - 1.30 mg/dL [facility] BUN/Creatinine Ratio 5.7(L) 10.0 - 20.0 [facility] 08/08/2024 08/09/2024 9:5 2 AM CDT Narrative [facility] - 08/09/2024 Unless otherwise specified, test(s) performed at: [facility], [address] [place] [address] BUILDING RIGGER: Dar Kang M.D. For any questions, please call customer service at FREQUENCY:OTHER Resulting Agency Comment Specimen source: Serum us Shannon Cochran MD LAB BLOOD ORDERABLES Final Re sult Performing Organization Address [facility] Co de Phone Number [facility] See order comments or contact performing lab Unknown, [place] * (ABNORMAL) HEMATOLOGY (08/08/2024) Hemoglobin 9.4(L) 14.0 - 18.0 g/dL [facility] Hemoglobin x 3 28.2(L) 42.0 - 54.0 % [facility] 08/08/2024 08/09/2024 9:4 7 AM CDT Narrative [facility] - 08/09/2024 Unless otherwise specified, test(s) performed at: [facility] [address] BUILDING RIGGER: Dar Kang M.D. For any questions, please call customer service at FREQUENCY:OTHER Resulting Agency Comment Specimen source: Blood us Shannon Cochran MD LAB BLOOD ORDERABLES Final Re sult Performing Organization Address [facility] de Phone Number [facility] See order comments or contact performing lab Unknown, [place] * (ABNORMAL) HEMATOLOGY (08/02/2024) [facility] Hemoglobin 9.2(L) 14.0 - 18.0 g/dL [facility] Hemoglobin x 3 27.6(L) 42.0 - 54.0 % [facility] 08/02/2024 08/03/2024 11: 25 AM CDT Narrative [facility] - 08/03/2024 Unless otherwise specified, test(s) performed at: [facility] [address] BUILDING RIGGER: Dar Kang M.D. For any questions, please call customer service at FREQUENCY:OTHER Resulting Agency Comment Specimen source: Blood us Shannon Cochran MD LAB BLOOD ORDERABLES Final Re sult Performing Organization Address [facility] de Phone Number [facility] See order comments or contact performing lab Unknown, [place] * IMMUNO CHEMISTRY (08/02/2024) [facility] Hepatitis C Antibody Nonreactive Nonreactive [facility] Comment: No HCV antibody detected. The above test result was obtained using Siemens Centaur XP chemiluminescent method. Results obtained with different assay methods or kits cannot be used interchangeably. S/CO Ratio 0.06 0.00 - 0.79 [facility] Comment: s/co ratio Interpretation Supplemental testing <0.80 Nonreactive No further testing required. 0.80-0.99 Equivocal HCV RNA Quantitative Real-Time PCR is recommended. 1.00->11.00 Reactive HCV RNA Quantitative Real-Time PCR is recommended to distinguish active from resolved cases. 08/02/2024 08/03/2024 8:3 8 AM CDT Narrative Resulting Agency Comment Specimen source: Serum us Shannon Cochran MD LAB BLOOD ORDERABLES Final Re sult Performing Organization Address [facility] de Phone Number [facility] See order comments or contact performing lab Unknown, [place] * (ABNORMAL) [facility] Chemistry (08/02/2024) BUN 27(H) 6 - 19 mg/dL [facility] Creatinine 5.66(H) 0.60 - 1.30 mg/dL [facility] BUN/Creatinine Ratio 4.8(L) 10.0 - 20.0 [facility] Sodium 137 136 - 145 mEq/L [facility] Potassium 4.3 3.5 - 5.1 mEq/L [facility] Chloride 104 96 - 108 mEq/L [facility] Bicarbonate (CO2) 23 22 - 29 mEq/L [facility] 08/02/2024 08/03/2024 8:3 8 AM CDT Narrative [facility] - 08/03/2024 Unless otherwise specified, test(s) performed at: [facility], [address] [place] [address] BUILDING RIGGER: Dar Kang M.D. For any questions, please call customer service at FREQUENCY:OTHER Resulting Agency Comment Specimen source: Serum us Shannon oCchran MD LAB BLOOD ORDERABLES Final Re sul Performing Organization Address [facility] Co de Phone Number [facility] See order comments or contact performing lab Unknown, [place] * (ABNORMAL) URINE CLEARANCE (07/31/2024) Urea Nitrogen, Urine Timed 104 mg/dL [facility] Urea Nitrogen, Urine 24 Hr 1.8(L) 12.0 - 20.0 g/24 hr [facility] Urea Clearance, Urine 5.1(L) 64.0 - 99.0 mL/min [facility] Creatinine, Urine Timed 39.8 mg/dL [facility] Creatinine, 24H Ur 0.7 0.7 - 1.8 g/24 hr [facility] Creatinine Clear, Urine 8.1 mL/min [facility] Creat Clear, Urine Norm 5.3(L) 94.0 - 122.0 mL/min [facility] 07/31/2024 08/01/2024 10: 11 AM CDT Narrative [facility] - 08/01/2024 Unless otherwise specified, test(s) performed at: [facility], [address] [place], [place] [phone] BUILDING RIGGER: Dar Kang M.D. For any questions, please call customer service at FREQUENCY:OTHER Resulting Agency Comment Specimen source: Urine Shannon Cochran MD LAB URINE ORDERABLES Final Re sult Performing Organization Address City/[facility] Co de Phone Number [facility] See order comments or contact performing lab Unknown, [place] * (ABNORMAL) [facility] Chemistry (07/31/2024) BUN 24(H) 6 - 19 mg/dL [facility] Creatinine 5.80(H) 0.60 - 1.30 mg/dL [facility] BUN/Creatinine Ratio 4.1(L) 10.0 - 20.0 [facility] Total Protein 5.7(L) 6.0 - 8.5 g/dL [facility] Albumin 3.5 3.5 - 5.2 g/dL [facility] Globulin, Total 2.2 2.0 - 4.0 g/dL [facility] A/G Ratio 1.6 1.0 - 2.0 [facility] Magnesium 1.9 1.6 - 2.6 mg/dL [facility] 07/31/2024 08/01/2024 9:2 0 AM CDT Narrative [facility] - 08/01/2024 Unless otherwise specified, test(s) performed at: [facility], [address] [place] [id number] BUILDING RIGGER: Dar Kang M.D. For any questions, please call customer service at FREQUENCY:OTHER Resulting Agency Comment Specimen source: Serum us Shannon Cochran MD LAB BLOOD ORDERABLES Final Re sult Performing Organization Address City/[facility]/ZIP Co de Phone Number [facility] See order comments or contact performing lab Unknown, [place] * (ABNORMAL) [facility] Chemistry (07/31/2024) [facility] PTH 391(H) 16 - 80 pg/mL [facility] 07/31/2024 08/01/2024 10: 24 AM CDT Narrative [facility] - 08/01/2024 Unless otherwise specified, test(s) performed at: [facility], [address] [place] [address] BUILDING RIGGER: Dar Kang M.D. For any questions, please call customer service at FREQUENCY:OTHER Resulting Agency Comment Specimen source: Plasma Shannon Cochran MD LAB BLOOD ORDERABLES Final Re sult Performing Organization Address [facility] Co de Phone Number [facility] See order comments or contact performing lab Unknown, [place] * PATIENT INFORMATION (07/31/2024) [facility] Patient BSA 2.65 sq. M. [facility] Comment: Normalized values are calculated using the patient's actual BSA and normalized to the average BSA of 1.73m2. 07/31/2024 08/01/2024 9:2 0 AM CDT Narrative [facility] - 08/01/2024 Unless otherwise specified, test(s) performed at: [facility] [address] BUILDING RIGGER: Dar Kang M.D. For any questions, please call customer service at FREQUENCY:OTHER Resulting Agency Comment Specimen source: PD Fluid us Shannon Cochran MD LAB BLOOD ORDERABLES Final Re sult Performing Organization Address City/[facility]/ZIP Co de Phone Number [facility] See order comments or contact performing lab Unknown, [place] * PATIENT INFORMATION (07/31/2024) [facility] Patient Weight 127.3 [facility] Patient Height 203.0 [facility] Amputee Status NO [facility] Amputee Parts NONE [facility] Urine Volume 1,700 [facility] Collection Interval, Ur 24.0 [facility] 07/31/2024 07/31/2024 Narrative [facility] - 08/01/2024 Unless otherwise specified, test(s) performed at: [facility], [address] [place] [phone] BUILDING RIGGER: Dar Kang M.D. For any questions, please call customer service at FREQUENCY:OTHER Resulting Agency Comment Specimen source: PD Fluid Shannon Cochran MD LAB BLOOD ORDERABLES Final Re sult [facility] See order comments or contact performing lab Unknown, [place] * (ABNORMAL) HEMATOLOGY (07/26/2024) Pathologist [facility] Hemoglobin 9.6(L) 14.0 - 18.0 g/dL [facility] Hemoglobin x 3 28.8(L) 42.0 - 54.0 % [facility] Reticulocyte Hemoglobin 32.8(H) 25.4 - 31.8 pg [facility] 07/26/2024 07/27/2024 1:0 8 PM CDT Narrative [facility] - 07/27/2024 Unless otherwise specified, test(s) performed at: [facility], [address] [place] [phone] BUILDING RIGGER: Dar Kang M.D. For any questions, please call customer service at FREQUENCY:OTHER Resulting Agency Comment Specimen source: Blood Shannon Cochran MD LAB BLOOD ORDERABLES Final Re sult [facility]PS [facility] See order comments or contact performing lab Unknown, [place] * (ABNORMAL) [facility] (07/26/2024) BUN 25(H) 6 - 19 mg/dL [facility] Creatinine 5.66(H) 0.60 - 1.30 mg/dL [facility] BUN/Creatinine Ratio 4.4(L) 10.0 - 20.0 [facility] Sodium 138 136 - 145 mEq/L [facility] Potassium 4.6 3.5 - 5.1 mEq/L [facility] Chloride 104 96 - 108 mEq/L [facility] Bicarbonate (CO2) 23 22 - 29 mEq/L [facility] 07/26/2024 07/27/2024 8:5 6 AM CDT Narrative [facility] - 07/27/2024 Unless otherwise specified, test(s) performed at: [facility], [address] [place] [phone] BUILDING RIGGER: Dar Kang M.D. For any questions, please call customer service at FREQUENCY:OTHER Resulting Agency Comment Specimen source: Serum us Shannon Cochran MD LAB BLOOD ORDERABLES Final Re sult [facility] See order comments or contact performing lab Unknown, [place] * (ABNORMAL) [facility] Chemistry (07/19/2024) BUN 29(H) 6 - 19 mg/dL [facility] Creatinine 6.31(H) 0.60 - 1.30 mg/dL [facility] BUN/Creatinine Ratio 4.6(L) 10.0 - 20.0 [facility] Sodium 139 136 - 145 mEq/L [facility] Potassium 4.3 3.5 - 5.1 mEq/L [facility] Chloride 104 96 - 108 mEq/L [facility] Bicarbonate (CO2) 24 22 - 29 mEq/L [facility] Calcium 7.9(L) 8.4 - 10.2 mg/dL [facility] Phosphorus 4.8(H) 2.6 - 4.5 mg/dL [facility] Calcium Phosphorus Product 38 0 - 54 [facility] Alkaline Phosphatase 58 40 - 129 U/L [facility] Glucose 152(H) 70 - 100 mg/dL [facility] Ferritin 199 22 - 322 ng/mL [facility] Iron 84 45 - 160 mcg/dL [facility] UIBC 167 155 - 355 mcg/dL [facility] TIBC 251 185 - 515 mcg/dL [facility] Iron Saturation (TSat) 33 20 - 55 % [facility] 07/19/2024 07/20/2024 10: 58 AM CDT Narrative [facility] - 07/20/2024 Unless otherwise specified, test(s) performed at: [facility] [address] BUILDING RIGGER: Dar Kang M.D. For any questions, please call customer service at FREQUENCY:MONTHLY Resulting Agency Comment Specimen source: Serum Shannon Cochran MD LAB BLOOD ORDERABLES Final Re sult Performing Organization Address [facility] de Phone Number [facility] See order comments or contact performing lab Unknown, [place] * TRACE ELEMENTS (07/19/2024) Pathologist [facility] Aluminum <5 0 - 10 mcg/L [facility] Comment: This test was developed and its performance characteristics determined by [facility]. It has not been cleared or approved by the FDA. The laboratory is regulated under CLIA as qualified to perform high complexity testing. This test is used for clinical purposes. It should not be regarded as investigational or for research. 07/19/2024 07/20/2024 10: 49 AM CDT Narrative [facility] - 07/20/2024 Unless otherwise specified, test(s) performed at: [facility], [address] [place] [id number] BUILDING RIGGER: Dar Kang M.D. For any questions, please call customer service at FREQUENCY:MONTHLY Resulting Agency Comment Specimen source: Serum Shannon Cochran MD LAB BLOOD ORDERABLES Final Re [facility] Performing Organization Address [facility] de Phone Number [facility] See order comments or contact performing lab Unknown, [place] * (ABNORMAL) HEMATOLOGY (07/19/2024) Neutrophils 78.3(H) 40.0 - 75.0 % [facility] Lymphocytes Relative 11.6(L) 19.0 - 48.0 % [facility] Monocytes 4.9 3.0 - 10.0 % [facility] Eosinophils Relative 3.1 0.0 - 7.0 % [facility] Basophils Relative 1.0 0.0 - 1.5 % [facility] LENNY 1.1 0.0 - 4.0 % [facility] WBC 5.98 4.80 - 10.80 1000/mcL [facility] RBC 3.63(L) 4.70 - 6.10 mill/mcL [facility] Hematocrit 29.9(L) 42.0 - 52.0 % [facility] MCV 82 80 - 100 fl [facility] MCH 28.4 27.0 - 31.0 pg [facility] MCHC 34.4 30.0 - 36.0 g/dL [facility] RDW 13.7 11.5 - 14.5 % [facility] Hemoglobin 10.3(L) 14.0 - 18.0 g/dL [facility] Hemoglobin x 3 30.9(L) 42.0 - 54.0 % [facility] Platelets 235 130 - 400 1000/mcL [facility] 07/19/2024 07/20/2024 11: 32 AM CDT Narrative [facility] - 07/20/2024 Unless otherwise specified, test(s) performed at: [facility], [address] [place] [id number] BUILDING RIGGER: Dar Kang M.D. For any questions, please call customer service at FREQUENCY:MONTHLY Resulting Agency Comment Specimen source: Blood us Shannon Cochran MD LAB BLOOD ORDERABLES Final Re sult [facility] See order comments or contact performing lab [facility], [place] * IMMUNO CHEMISTRY (07/17/2024) Hepatitis B Surface Ab <10 mIU/mL [facility] Comment: Reference Range: <10 mIU/mL Non-Immune >=10 mIU/mL Immune The magnitude of the measured result above 10 mIU/mL is not indicative of the total amount of antibody present. Custom Exception Hep B Core Total Ab Negative Negative [facility] Comment: Hep B Core Ab, Total appears during the acute infection stage and remains reactive/positive throughout the recovery stage. The above test result was obtained using Siemens Centaur XP chemiluminescent method. Results obtained with different assay methods or kits cannot be used interchangeably. Hep B Surface Ag Negative Negative [facility] 07/17/2024 07/18/2024 11: 19 AM CDT Narrative [facility] - 07/18/2024 Unless otherwise specified, test(s) performed at: [facility], [address] [place] [id number] BUILDING RIGGER: Dar Kang M.D. For any questions, please call customer service at FREQUENCY:OTHER Resulting Agency Comment Specimen source: Serum us Shannon Cochran MD LAB BLOOD ORDERABLES Edited R esult - Final APS [facility] See order comments or contact performing lab Unknown, [place] documented in this encounter Visit Diagnoses Not on filedocumented in this encounter
--- OUTSIDE RECORDS SUMMARY | 2025-05-24 17:19 | XMS_ITS | Encounter Summary ---
Author Organization [facility] Address [address] [place] [address] Care Team Providers Care Data Processing Equipment Repairer Name Role Phone Osmani Contreras MD Primary Care Provider [phone] Encounter Details Date Type Department Care Team (Late st Contact Info) Description 01/04/2012 Ancillary Orders [facility] Laboratory Services [place] [address] [place] [address] Sick Social History Tobacco Use Types Packs/Day Years Used Date Smoking Tobacco: Never Assessed Sex and Gender Information Value Date Recorded Sex Assigned at Not on file Legal Sex Male 3:06 AM 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 GRAM STAIN Few Gram positive cocci 01/06/2012 6:27 PM CDT [facility] [place] GRAM STAIN No WBC's observed 012 6:27 PM CDT [facility] [place] Wound drainage 01/04/2012 9: 00 PM CDT 01/04/2012 11:02 PM CDT Narrative [facility] [facility] - 01/06/2012 6:27 PM CDT Left great toe. Sensitivity not normally preformed. Chelsey Prince [facility] MICROBIOLOGY - GENERAL ORDE LANE Final Result [facility] [employer] [facility] CLIA # [id number] [address] [place] [address] * (ABNORMAL) CBC WITH DIFFERENTIAL (01/04/2012 9:00 PM CDT) WBC 7.6 4.2 - 9.1 K/uL 01/04/2012 11:09 PM CDT [facility] RBC 5.33 4.63 - 6.08 M/uL 01/04/2012 11:09 PM [facility] [employer] [facility] HEMOGLOBIN 15.3 13.7 - 17.5 g/dL 01/04/2012 11:09 PM [facility] [employer] [facility] HEMATOCRIT 42.0 40.1 - 51.0 % 01/04/2012 11:09 PM T [facility] [employer] [facility] MCV 78.8(L) 79.0 - 92.2 fL 01/04/2012 11:09 PM CDT [facility] [employer] [facility] MCH 28.7 25.7 - 32.2 pg 01/04/2012 11:09 PM CDFORMERLY [facility] [employer] [facility] MCHC 36.4 32.3 - 36.5 g/dL 01/04/2012 11:09 PM [facility] [employer] [facility] RDW 12.8 11.0 - 14.5 % 01/04/2012 11:09 PM CDT [facility] [employer] [facility] RDW-STDEV 36.6 fL 01/04/2012 11:09 PM CDT [facility] [place] PLATELETS 265 130 - 400 K/uL 01/04/2012 11:09 PM CDT [facility] [place] MPV 10.6 10.0 - 14.8 fL 01/04/2012 11:09 PM CDT [facility] [place] NEUTROPHILS 49 34 - 68 % 01/04/2012 11:09 PM CDT [facility] [place] LYMPHOCYTES 40 22 - 53 % 01/04/2012 11:09 PM CDT [facility] [place] MONOCYTES 9 5 - 12 % 01/04/2012 11:09 PM CDT [facility] [place] EOSINOPHILS 2 1 - 7 % 01/04/2012 11:09 PM CDT [facility] [place] BASOPHILS 1 0 - 1 % 01/04/2012 11:09 PM CDT [facility] [place] NEUTROPHIL ABSOLUTE 3.72 1.78 - 5.38 K/uL 01/04/2012 11:09 PM CDT [facility] [place] LYMPHOCYTE ABSOLUTE 3.03 1.20 - 3.40 K/uL 01/04/2012 11:09 PM CDT [facility] [place] MONOCYTE ABSOLUTE 0.65 0.30 - 0.82 K/uL 01/04/2012 11:09 PM CDT [facility] [place] EOSINOPHIL ABSOLUTE 0.11 0.04 - 0.54 K/uL 01/04/2012 11:09 PM CDT [facility] [place] BASOPHILS ABSOLUTE 0.04 0.01 - 0.08 K/uL 01/04/2012 11:09 PM CDT [facility] [place] Blood specimen (specimen) 01/04/2012 9:00 PM CDT 01/04/2012 11:02 PM CDT Chelsey Prince CREDIT COLLECTION ASSOCIATE HEMATOLOGY ORDERABLES Final Result [facility] [place] CLIA # [id number] [address] [place] [address] * (ABNORMAL) LIPID PANEL (01/04/2012 9:00 PM CDT) CHOLESTEROL 231(H) 130 - 200 mg/dL 01/04/2012 11:32 PM CDT [facility] TRIGLYCERIDE 108 30 - 200 mg/dL 01/04/2012 11:32 PM CDT [facility] HDL 51 35 - 80 mg/dL 01/04/2012 11:32 PM CDT [facility] LDL CALCULATED 158(H) 0 - 100 mg/dL 01/04/2012 11:32 PM T [facility] Blood specimen (specimen) 01/04/2012 9:00 PM CDT 01/04/2012 11:02 PM CDT Narrative [facility] LAB[facility]ATORY [facility] - 01/04/2012 11:32 PM CDT TOTAL CHOLESTEROL mg/dL Desirable <200 Borderline high 200-239 High >=240 TRIGLYCERIDES mg/dL Normal <150 Borderline high 150-199 High 200-499 Very high >=500 HDL CHOLESTEROL mg/dL Low <40 Normal 40-60 Desirable >60 LDL CHOLESTEROL mg/dL Optimal <100 Low risk 100-129 Borderline high 130-159 High 160-189 Very high >=190 Based on AHA/NCEP Guidelines Chelsey Prince CREDIT COLLECTION ASSOCIATE CHEMISTRY ORDERABLES Final Result [facility] CLIA # [id number] [address] [place] [address]89 * (ABNORMAL) BASIC METABOLIC PANEL (01/04/2012 9:00 PM CDT) SODIUM 134(L) 136 - 145 mmol/L 01/04/2012 11:32 PM T [facility] [employer] [facility] POTASSIUM 3.7 3.5 - 5.1 mmol/L 01/04/2012 11:32 PM CDT [facility] LABORATORY [facility] CHLORIDE 97(L) 98 - 107 mmol/L 01/04/2012 11:32 PM T [facility] [employer] [facility] CO2 29 21 - 32 mmol/L 01/04/2012 11:32 PM CDT [facility] CALCIUM 9.2 8.5 - 10.1 mg/dL 01/04/2012 11:32 PM T [facility] BUN 19(H) 7 - 18 mg/dL 01/04/2012 11:32 PM CDT [facility] CREATININE 0.90 0.60 - 1.30 mg/dL 01/04/2012 11:32 PM T [facility] GLUCOSE 234(H) 74 - 106 mg/dL 01/04/2012 11:32 PM T [facility] GFR 93 >=60 mL/min/1.7 3 sq meter 01/04/2012 11:32 PM T [facility] GFR, 113 >=60 mL/min/1.7 3 sq meter 01/04/2012 11:32 PM T [facility] Blood specimen (specimen) 01/04/2012 9:00 PM CDT 01/04/2012 11:02 PM CDT Narrative [facility] - 01/04/2012 11:32 PM CDT eGFR [...] patients with severe liver disease. Chelsey Prince CREDIT COLLECTION ASSOCIATE CHEMISTRY ORDERABLES Final Result Performing Organization Address City/State/[facility] Co de Phone Number [facility] # [id number] [address] [place] [address] documented in this encounter Visit Diagnoses Diagnosis Sick Other unknown and unspecified cause of morbidity or mortality documented in this encounter Additional Health Concerns Infection Onset Date Last Indicated Resolved Time C Diff Comment:Resolved 09/08/2018, Infection Prevention 03/11/16 ([facility]) 03/25/2016 03/25/2016 8 7:46 AM STAIN APPLICATOR documented as of this encounter Care Teams Data Processing Equipment Repairer Relationship Specialty Start Date End Date Osmani Contreras MD [address] [place] [address] PCP - General Family Practice 12/04/15 documented as of this encounter
--- OUTSIDE RECORDS SUMMARY | 2025-05-24 17:19 | XMS_ITS | Encounter Summary ---
Author Organization [facility] Address [address] [facility] [place] [address] Care Team Providers Care Chemistry Professor Name Role Phone Osmani Contreras MD Primary Care Provider [phone] Encounter Details Date Type Department Care Team (Latest Contact Info) Description 07/24/2004 [facility] [address] [place] [id number] Sarwat Naidu MD [address] [place] [address] HYPERTENSION NOS (Primary Dx) Social History Tobacco Use Types Packs/Day Years Used Date Smoking Tobacco: Never Assessed Sex and Gender Information Value Date Recorded Sex Assigned at Not on file Legal Sex Male 3:06 AM 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 CABLE TOOL Gender Identity Not on file Sexual Orientation Not on file documented as of this encounter Plan of Treatment Not on file documented as of this encounter Visit Diagnoses Diagnosis Unspecified essential hypertension- Primary documented in this encounter Additional Health Concerns Infection Onset Date Last Indicated Resolved Time C Diff Comment:Resolved 09/08/2018, Infection Prevention 03/11/16 ([facility]) 03/25/2016 03/25/2016 8 7:46 AM 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 CABLE TOOL documented as of this encounter Care Teams Chemistry Professor Relationship Specialty Start Date End Date Osmani Contreras MD [address] [place] [address] PCP - General Family Practice 12/04/15 documented as of this encounter
--- OUTSIDE RECORDS SUMMARY | 2025-05-24 17:19 | XMS_ITS | Encounter Summary ---
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 NO ADDRESS ON FILE Social History Tobacco Use Types Packs/Day Years Used Date Smoking Tobacco: Former Smokeless Tobacco: Current Chew Alcohol Use Standard Drinks/Week Comments Yes 0 (1 standard drink = 0.6 oz pur e alcohol) rare Sex and Gender Information Value Date Recorded Sex Assigned at Not on file Legal Sex Male 3:06 AM MULTI TOWNSHIP ASSESSOR Gender Identity Not on file Sexual Orientation [...] C Diff Comment:Resolved 09/08/2018, Infection Prevention 03/11/16 ([facility]) 03/25/2016 03/25/2016 8 7:46 AM MULTI TOWNSHIP ASSESSOR documented as of this encounter Care Teams Inside Sales Supervisor Relationship Specialty Start Date End Date Osmani Contreras MD [address] [place] [address] PCP - General Family Practice 12/04/15 documented as of this encounter
--- OUTSIDE RECORDS SUMMARY | 2025-05-24 17:20 | XMS_ITS | Patient Health Record ---
Author Organization [facility] Address [address] [place] [address] Care Team Providers Care Histopathologist Name Role Phone Horne Funmilayo CANTU Primary Care Provider Unavailab Alverto Crocker Unavailable [phone] Migration, Provider Unavailable Unavailable Sharon Shaw Unavailable [phone] Allergies Allergen (clinical drug ingredient) Drug/Non Drug Allergy documented on EMR Reaction Allergy Type Onset Date Status diphenhydramine Benadryl Unknown Drug Allergy A ctive INVanz Unknown Drug Allergy Active Novocain Unknown Drug Allergy Active hydralazine Hydralazine incontienence Drug Allergy Active Reason For Referral No Information Medications Medication SIG (Take, Route, Frequency, Duration) Notes Start Date End Date Status traZODone HCl 100 MG Tablet 1 tablet at bedtime Orally Once a day Active Toujeo Max SoloStar 300 UNIT/ML Solution Pen-injector as directed Subcutaneous daily 3 ml daily Active Ventolin HFA 108 (90 Base) MCG/ACT Aerosol Solution 1 puff as needed Inhalation every 4 hrs Active Cyclobenzaprine HCl 10 MG Tablet 1 tablet at bedtime as needed Orally Once a day Active dilTIAZem HCl ER 240 MG Capsule Extended Release 24 Hour 1 capsule Orally Once a day Active Cetirizine HCl 10 MG Tablet 1 tablet Orally Once a day Active Atorvastatin Calcium 40 MG Tablet 1 tablet Orally Once a day Active Farxiga 10 MG Tablet 1 tablet Orally Onc e a day; Duration: 30 days Active Brexpiprazole 2 MG Tablet 1 tablet Orall y Once a day Active Aspirin 81 MG Tablet Chewable 1 tab(s) po qd Oral 02/03/2012 Active Captopril 25 MG Tablet TAKE 1 TABLET BY MOUTH 1 HOUR BEFORE OR 2 HOURS AFTER A MEAL THREE TIMES DAILY FOR 30 DAYS; Duration: 90 days Active DULoxetine HCl 60 MG Capsule Delayed Release Particles 1 capsule Orally Once a day Active Metoprolol Tartrate 75 MG Tablet 1 tablet with food Orally TID; Duration: 90 days 05/10/2024 Active Fluticasone Propionate 50 MCG/ACT Suspension 1 spray in each nostril Nasally Once a day Active Calcitriol 0.25 MCG Capsule 1 capsule Orally Three times a Week; Duration: 30 days Active Iron (Ferrous Sulfate) 325 (65 Fe) MG Tablet 1 tablet Orally Three times a Week; Duration: 30 day(s) Active Metoprolol Tartrate 75 MG Tablet Take 1 tablet(s) Orally TID 10/05/2013 Active Sertraline HCl 150 MG Capsule 1 capsule Orally Once a day Active Tamsulosin HCl 0.4 MG Capsule 1 capsule Orally Once a day Active Pantoprazole Sodium 40 MG Tablet Delayed Release 1 tablet Orally Once a day Active Pregabalin 100 MG Capsule 1 capsule Orally TID Active Ondansetron 4 MG Tablet Disintegrating 1 tablet on the tongue and allow to dissolve Orally Once a day Active oxyCODONE HCl 10 MG Tablet 1 tablet as needed Orally every 6 hrs Active Multi For Him - Tablet as directed Orally Active NovoLOG FlexPen 100 UNIT/ML Solution Pen-injector as directed Subcutaneous daily 3ml daily Active Immunizations Vaccine Route Administration Date Status Comme nts Flu vaccine no Preserv 3 and > IM Intramuscular 08/01/2012 Administered Pneumococcal polysaccharide PPV23 IM Intramuscular 04/27/2012 Administered Social History Social History Tobacco Use: Social Info Question Answer Notes xTobacco Use/Smoking Additional Findings : Tobacco User Chews fine cut tobacco Tobacco use other than smoking: Are you an other tobacco user? 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 De nies Do you drink alcohol? Socially Section Notes: Former smoker: He smoked 1.5 -2ppd for about 10 years; he stopped smoking [facility] 2004 Former smoker: He smoked 1.5 -2ppd for about 10 years; he stopped smoking [facility] 2004 Former smoker: He smoked 1.5 -2ppd for about 10 years; he stopped smoking [facility] 2004 Former smoker: He smoked 1.5 -2ppd for about 10 years; he stopped smoking . 2004 Former smoker: He smoked 1.5 -2ppd for about 10 years; he stopped smoking . 2004 Former smoker: He smoked 1.5 -2ppd for about 10 years; he stopped smoking . 2004 Problems Problem Type SNOMED Code ICD Code Onset Dates Problem Status W/U Status Risk Notes Problem Diabetic renal disease (089286163) Type 2 diabetes mellitus with diabetic chronic kidney disease (E11.22) Active confirmed Problem Hypomagnesemia (836873285) Hypomagnesemia (E83.42) Active confirmed Problem Chronic kidney disease due to hypertension (067060961393168) Hypertensive chronic kidney disease with stage 1 through stage 4 chronic kidney disease, or unspecified chronic kidney disease (I12.9) Active confirmed Problem Tubulointerstitial nephritis (disorder) (545793084) Renal tubulo-interstitial disease, unspecified (N15.9) Active confirmed Problem Secondary hyperparathyroidism of renal origin (58247495) Secondary hyperparathyroidism of renal origin (N25.81) Active confirmed Problem Long-term current use of insulin (237296670) dump operator (current) use of insulin (Z79.4) Active confirmed Problem Iron deficiency anemia (44529768) Iron deficiency anemia, unspecified iron deficiency anemia type (D50.9) Active confirmed Problem Chronic kidney disease stage 4 (507139807) CKD (chronic kidney disease), stage IV (N18.4) Active confirmed Problem Hyperparathyroidism (26651446) Hyperparathyroidism (E21.3) Active confirmed Problem Benign hypertension (00248657) Hypertension, benign (I10) Active confirmed Problem Vitamin D deficiency (98748136) Vitamin D deficiency (E55.9) Active confirmed Problem Acute kidney injury (25623333) Acute kidney injury (N17.9) Active confirmed Problem Hypoalbuminemia (163776882) Hypoalbuminemia (E88.09) Active confirmed Problem Chronic renal failure syndrome (26351061) Chronic kidney disease, unspecified CKD stage (N18.9) Active confirmed Problem Chronic kidney disease stage 3 (disorder) (258700038) Chronic kidney disease, stage 3 unspecified (N18.30) Active confirmed Problem Chronic kidney disease stage 3 (disorder) (903615018) Stage 3 chronic kidney disease, unspecified whether stage 3a or 3b CKD (N18.30) Active confirmed Problem Primary hypertension (39493417) Primary hypertension (I10) Active confirmed Problem Essential hypertension (67151150) Essential hypertension (401.1) 2013 Active confirmed [id number]- Problem Diabetes mellitus type 2 (disorder) (80054128) Type 2 diabetes (250.00) 2011 Active confirmed [id number]- Problem Foot ulcer (01541775) Ulcer of other part of foot (707.15) 2011 Problem resolved confirmed [id number]- Problem Shortness of breath (295855904) Shortness of breath (786.05) 2013 Problem resolved confirmed [id number]- Problem Androgen deficiency (48682041) Testosterone deficiency (257.2) 2013 Problem resolved confirmed [id number]- Problem Low back pain (099153533) Low back pain (724.2) 2013 Problem resolved confirmed [id number]- Problem Tinea corporis (34582331) Tinea corporis (110.5) 2012 Problem resolved confirmed [id number]- Problem Type II diabetes mellitus uncontrolled (534788382) Diabetes mellitus without mention of complications, type II or unspecified type, uncontrolled (250.02) 2013 Problem resolved confirmed [id number]- Problem Shoulder pain (94251468) Shoulder pain (719.41) 2012 Problem resolved confirmed [id number]- Problem Open wound of toe (185425468) Open wound of toe(s) (893.0) 2013 Problem resolved confirmed [id number]- Problem Intermittent claudication (99867981) Intermittent claudication (443.9) 2013 Problem resolved confirmed [id number]- Problem Foot pain (16136764) Foot pain (729.5) 2013 Problem resolved confirmed [id number]- Problem Peripheral neuropathy (745890606) Peripheral neuropathy (356.9) 2011 Problem resolved confirmed [id number]- Problem Needs influenza immunization (898713879) Vaccination against other viral diseases, Influenza (V04.81) 2011 Problem resolved confirmed [id number]- Problem Breast pain (18368670) Breast pain (611.71) 2011 Problem resolved confirmed [id number]- Problem Ankle pain (126286961) Ankle pain (719.47) 2012 Problem resolved confirmed [id number]- Problem Erectile dysfunc tion secondary to diabetes (607.84) 2013 Problem resolved confirmed [id number]- Problem Tinea pedis (1502908) Tinea pedis (110.4) 2012 Problem resolved confirmed [id number]- Problem Administration of vaccine product containing only Streptococcus pneumoniae antigen (procedure) (49664066) Vaccination against pneumococcal pneumonia (V03.82) 2011 Problem resolved confirmed [id number]- Problem Low back pain (423853920) Lower back pain (724.2) 2011 Problem resolved confirmed [id number]- Problem Hypertrophy of tonsils (46617264) Hypertrophy of tonsils (474.11) 2012 Problem resolved confirmed [id number]- Problem Neurologic disorder associated with type II diabetes mellitus (730972718) Peripheral neuropathy secondary to uncontrolled type II diabetes (250.62) 2013 Problem resolved confirmed [id number]- Problem 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 (13762294) Unspecified skin lesion (239.2) 2013 Problem resolved confirmed [id number]- Encounters Encounter Location Date Provider Diagnosis Migrated_Facility 0 0 08/05/2024 Provider Migration Migrated_Facility 0 0 08/06/2024 Provider Migration [facility]ly [facility], [facility] [place] [address] 06/05/2024 Alverto Cruz Hypertension, benign I10 Formerly [facility], [facility] [place] [address] 07/04/2024 Sharon Shaw [facility]ly [facility] Nephrology Clinic [address] [place] [address] [place] [address] 07/12/2024 Alverto Cruz [facility] Nephrology Clinic [address] [place] [address] [place] [address] 08/29/2024 Alverto Cruz Resistant hypertension I1A.0 Assessments Encounter Date Diagnosis (ICD Code) Assessment Notes Treatment Notes Treatment Clinical Notes Section Notes 06/05/2024 Hypertension, benign (ICD-10 - I10) 08/29/2024 Resistant hypertension (ICD-10 - I1A.0) Plan Of Treatment Pending Test Test Name Order Date Basic Metabolic Panel (BMP) 92370 2023 Ferritin 00434 01/31/2024 Hemoglobin 60707 01/31/2024 Iron Binding Capacity Total 42323 2023 Iron Level 58972 01/31/2024 Magnesium (B) 71265 01/31/2024 Phosphorus (B) 05686 01/31/2024 Protein (U) Random 20887 01/31/2024 Uric Acid (B) 66250 01/31/2024 Vitamin D Total (B) 77120 01/31/2024 Albumin (U) / Body Fluid 78586 Creatinine (U) 50666 01/31/2024 UA Reflex Micro, Reflex Cult 22810, 8101 5, 19175 01/31/2024 PTH Intact 38122 01/31/2024 % Iron Saturation (Fe & TIBC)--71715,835 50 01/31/2024 Future Test Test Name Order Date Albumin 41783 07/11/2024 Basic Metabolic Panel (BMP) 66674 2023 Ferritin 25847 07/11/2024 Hemoglobin 40546 07/11/2024 Iron Binding Capacity Total 84765 2023 Iron Level 72105 07/11/2024 Magnesium (B) 60004 07/11/2024 Phosphorus (B) 53963 07/11/2024 Protein (U) Random 52383 07/11/2024 Uric Acid (B) 12425 07/11/2024 Vitamin D Total (B) 29777 07/11/2024 Creatinine (U) 38619 07/11/2024 UA Reflex Micro, Reflex Cult 15536, 8101 5, 70541 07/11/2024 PTH Intact 79206 07/11/2024 % Iron Saturation (Fe & TIBC)--64441,835 50 07/11/2024 Insurance Providers Payer Name Payer Address Payer Phone Subscriber Number Group Number Insured Name Patient Relationship to Insured Coverage Start Date Coverage End Date UHC Medicare Dual Complete PPO [address] [address] [place] [phone] [id number] Abimael Cochran Self - patient is the insured Medical (General) History Medical History History ICD Code Hyperlipidemia Hypertension Sleep apnea erectile dysfunction Type 2 diabetes Diabetic retinopathy Diabetic neuropathy Depression Anxiety chronic back pain Anemia Nephrotic proteinuria Hypoalbuminemia Chronic kidney disease COPD Secondary hyperparathyroidism Anemia Surgical History Surgery Date(Month/Year) Tonsillectomy/Adenoidectomy Arthroscopy: left knee gastric bypass 07/16/2022 cardiac catheterization Hospitalization History Reason Date(Month/Year) see surgical hx
--- NOTE | 2025-05-24 18:30 | ECG_ITS ---
[facility] Test Date: 2025-05-24 Pat Name: Abimael Cochran Department: Room: Gender: Male Translator/Interpreter: : 1970 Requested By: Raghu Aquino Order Number: [id number] Reading MD: Measurements Intervals [place] Rate: 67 P: 85 WY: 183 QRS: 53 QRSD: 100 T: 79 QT: 409 QTc: 435 Interpretive Statements SINUS RHYTHM NONSPECIFIC T-WAVE ABNORMALITY No previous ECG available for comparison [email or web address]
--- NOTE | 2025-05-24 19:22 | USR_ITS ---
PROCEDURE INFORMATION: Exam: US Duplex Left Upper Extremity Veins, Limited Exam date and time: 05/24/2025 7:33 PM Age: 54 years old Clinical indication: Pain; Arm, upper; Prior surgery; Surgery date: 6+ months; Surgery type: Left a-v fistula dialysis graft with anastomosis into the left brachial artery; Additional info: Fistula and arm soreness TECHNIQUE: Imaging protocol: Real-time duplex ultrasound of the left extremity with 2-D mckeon scale, color Doppler flow and spectral waveform analysis including responses to compression and other maneuvers (when performed) with image documentation. Limited exam focused on the left upper extremity veins. COMPARISON: No relevant prior studies available. FINDINGS: Left deep veins: Internal jugular, subclavian, axillary, brachial, radial and ulnar veins patent without thrombus. Normal compressibility, augmentation response and/or Doppler waveforms. Superficial veins: Unremarkable. Visualized cephalic and basilic veins are patent without thrombus. Soft tissues: Subcutaneous edema in the forearm. US/[place] [id number] IMPRESSION: No sonographic evidence of deep vein thrombosis.
--- NOTE | 2025-05-24 19:24 | W.ED.EXTPRO ---
HPI - Extremity Problem General: Chief complaint: Extremity Problem,Nontraumatic Stated complaint: Dialysis 05/23 L arm painful/tight Time Seen by Provider: 05/24/25 19:17 Source: patient and family Mode of arrival: ambulatory Limitations: no limitations History of Present Illness: This patient made his way to the emergency department today because of concerns about swelling and discomfort in his left upper arm since yesterday. The patient has a dialysis fistula in that upper extremity. He went to dialysis yesterday and was bandaged in a abnormally tight fashion post dialysis. He states after removing the bandage later in the day he noted the arm was sore and swollen and that has continued today. He states that is quite uncomfortable and he cannot extend his arm at the elbow to full extension or bend it past approximately 75 degrees. He denies any fevers or chills. There was no trauma that preceded his dialysis run and has been no subsequent trauma. He denies any pain in his lower arm. He states he is taken all his usual medication including Plavix which was prescribed after he had a stent placed by cardiology in April of this year at this facility.i Complaint: extremity pain and extremity swelling Location: left and upper extremity Exacerbating factors: range of motion and palpation Associated symptoms: Deny rash Related Data Home Medications ?Medication ?Instructions ?Recorded ?Confirmed atorvastatin 40 mg tablet 40 mg PO DAILY 11/07/20 05/01/25 tamsulosin 0.4 mg capsule (Flomax) 0.4 mg PO DAILY 11/07/20 05/01/25 aspirin 81 mg tablet,delayed 81 mg PO DAILY 02/03/21 05/01/25 release bumetanide 0.5 mg tablet 0.5 mg PO DAILY 09/20/24 05/01/25 clonidine 0.1 mg/24 hr weekly 1 patch transdermal .Weekly 11/16/24 05/01/25 transdermal patch metoprolol tartrate 100 mg tablet 100 mg PO BID 12/25/24 05/01/25 nifedipine 60 mg tablet,extended 60 mg PO DAILY 12/25/24 05/01/25 release 24 hr terazosin 5 mg capsule 5 mg PO DAILY 12/25/24 05/01/25 megestrol 400 mg/10 mL (40 mg/mL) 10 mg PO DAILY 02/20/25 05/01/25 oral suspension hydralazine 100 mg tablet 100 mg PO BID 04/12/25 05/01/25 terazosin 10 mg capsule mg PO 04/25/25 05/01/25 Previous Rx's ?Medication ?Instructions ?Recorded buspirone 10 mg tablet 10 mg PO BID #60 tabs 11/16/24 duloxetine 60 mg capsule,delayed 120 mg (2 x 60 mg) PO DAILY #60 11/16/24 release caps sertraline 100 mg tablet (Zoloft) 200 mg (2 x 100 mg) PO DAILY #60 11/16/24 tabs trazodone 100 mg tablet 400 mg (4 x 100 mg) PO .HS PRN 11/16/24 insomnia #120 tabs Hinged Knee Brace #1 ea 01/02/25 bupropion HCl 300 mg 24 hr tablet, 300 mg PO QAM #30 tabs 03/20/25 extended release (Wellbutrin XL) pantoprazole 40 mg tablet,delayed 40 mg PO BID POST GASTRIC SLEEVE 04/05/25 release (Protonix) 30 days #60 tabs clopidogrel 75 mg tablet (Plavix) 75 mg PO DAILY 90 days #90 tabs 04/13/25 nitroglycerin 0.4 mg sublingual 0.4 mg sublingual Q5M PRN Chest 04/18/25 tablet Pain #20 tabs isosorbide mononitrate 30 mg 30 mg PO BIDWM #180 tabs 04/25/25 tablet,extended release 24 hr potassium chloride 20 mEq 20 meq PO BID #2 tabs 04/26/25 tablet,extended release (K-Tab) losartan 100 mg tablet 100 mg PO DAILY #90 tabs 05/10/25 Allergies Allergy/AdvReac Type Severity Reaction Status Date / Time diphenhydramine (From Allergy Unknown Unknown Verified 05/24/25 17:19 Benadryl) ertapenem (From Invanz) Allergy Unknown Unknown Verified 05/24/25 17:19 Review of Systems General: Reports: 10 or more systems reviewed and unremarkable except in HPI and below Musc: Reports: extremity pain Skin/Breast: Denies: rash or erythema Neuro: Denies: numbness in extremities or weakness in extremities Liban/Lymph: Reports: easy bruising and easy bleeding PFSH ED PFSH: Medical History Peripheral neuropathy Generalized anxiety disorder Major depressive disorder, 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 Diabetes mellitus Hypertension Psychiatric care GERD (gastroesophageal reflux disease) Chronic kidney disease Hypertension Hyperlipidemia Diabetes Morbid obesity Bereavement Chronic major depressive disorder Colon polyp Encounter for screening colonoscopy Surgical History History of colonoscopy with polypectomy History of tonsillectomy History of foot surgery History of shoulder surgery Family History Denies family history of Anesthesia complication Bleeding disorder Social History Smoking and tobacco/nicotine status: former use of tobacco/nicotine (December 2016) Quit status (tobacco/nicotine): has tried quititng Number of times tried to quit tobacco: 3 Second hand smoke exposure: Yes (Occ.) Alcohol intake: current Alcohol intake frequency: holidays/special occasions only Alcohol type: beer Substance/Drug Use: current Substance/Drug use frequency: few times a week Other substance/drug use details: A few times a week. Physical Exam Narrative: EXAM NARRATIVE: The patient appears to be in no acute distress answers questions appropriately. Const: COMMON NORMALS: no acute distress, average body habitus and patient oriented x3 GENERAL APPEARANCE: cooperative and comfortable HENMT: COMMON NORMALS: moist oral mucous membranes Eye: COMMON NORMALS: Equal, round and reactive pupils present PUPIL: Yes Equal, round and reactive pupils present Neck/C-Spine: COMMON NORMALS: full ROM, no lymphadenopathy, supple and No carotid bruits Lymph: LYMPHATIC: no lymphadenopathy noted Resp: COMMON NORMALS: normal respiratory effort and No use of accessory muscles EFFORT & INSPECTION: Yes able to speak in complete sentences Cardio: COMMON NORMALS: regular rate, regular rhythm and Peripheral pulses 2+ throughout RATE: regular rate RHYTHM: regular rhythm PERIPHERAL PULSES: Peripheral pulses 2+ throughout Back/Pelvis: COMMON NORMALS: thoraco-lumbar ROM normal Extremity: COMMON NORMALS: capillary refill normal NARRATIVE EXTREMITY EXAM: Extremity examination with attention to the left upper extremity reveals swelling and tender subcutaneous tissue to palpation with mild tenderness in the left upper arm. The skin is not erythematous. There is no lymphangitis or proximal lymphadenopathy. Palpation of his fistula reveals easily palpable thrill. The distal extremity appears to be normal. The pulses are palpated both in the radial and ulnar pulse. There is good capillary refill and normal range of motion at the wrist. His range of motion at the elbow is limited and that he cannot extend to 180 degrees. His flexion at the elbow is limited to approximately 75 degrees. There does not appear to be any disruption in the either bicep muscles. Neuro: COMMON NORMALS: patient oriented x3, moves all extremities, no focal motor deficits and no sensory deficits noted Skin: COMMON NORMALS: no rashes or lesions noted, no wounds, turgor normal and no petechiae GENERAL SKIN EXAM: no rashes or lesions noted and turgor normal Course Reevaluation(s): Reevaluation #1: The patient's ultrasound of his entire left arm vasculature is reassuring. There is no evidence of clot and there is certainly no evidence that suggest ongoing bleeding etc. in the left upper arm. No evidence to suggest infection etc. At this point I think is reasonable for us to discharge him to follow-up tomorrow morning with the dialysis clinic for reevaluation. The biggest concern was had a clot or thrombus developed in the venous system or there been a disruption in his fistula which does not appear to be the case at this time. He is comfortable with the plan of care and he is being discharged in stable condition. Time: 22:28 Vital Signs: Vital signs: Vital Signs Temperature 98.5 F 05/24/25 17:13 Pulse Rate 67 05/24/25 17:13 Respiratory Rate 16 05/24/25 17:13 Blood Pressure 154/77 05/24/25 17:13 Pulse Oximetry 97 05/24/25 17:13 Oxygen Delivery Me thod Room Air 05/24/25 17:13 MDM - Extremity (Nontraumatic) Medical Decision Making This patient presented as noted in the HPI. No evidence of trauma by history other than the fact that his postdialysis compression bandage was significantly tighter than normal per his history. Clinical examination revealed no evidence of infection. There was a palpable thrill on clinical examination and he had intact peripheral pulses. There was noticed no suggestion that of bony tenderness and there certainly was no evidence to suggest he had a bicep tendon rupture or bicep muscle rupture etc. Ultrasound was obtained to evaluate his vasculature of his left upper extremity which was reassuring. There was no evidence of thrombus disruption of his vascular anastomosis etc. at this time. Given these findings and the lack of other concerning clinical findings to suggest other emergency medicine conditions at this time he was felt to be stable to be discharged from the emergency department with dialysis follow-up the following morning and further evaluation as indicated. Lab Data Radiology Impressions Venous Duplex 05/24/25 19:22 IMPRESSION: No sonographic evidence of deep vein thrombosis. All radiology interpretation(s) finalized by discharge Discharge Plan Discharge Patient Disposition: Home Clinical Impression: Arm pain, left Condition: Stable Prescriptions: No Action atorvastatin 40 mg tablet 40 mg PO DAILY tamsulosin [Flomax] 0.4 mg capsule 0.4 mg PO DAILY bumetanide 0.5 mg tablet 0.5 mg PO DAILY Rx Instructions: On non-dialysis days. megestrol 400 mg/10 mL (40 mg/mL) suspension 10 mg PO DAILY (DME) Hinged Knee Brace See Rx Instructions .Route .MEDSUPPLY Qty: 1 0RF Rx Instructions: As directed terazosin 10 mg capsule PO isosorbide mononitrate 30 mg tablet extended release 24 hr 30 mg PO BIDWM Qty: 180 0RF buspirone 10 mg tablet 10 mg PO BID Qty: 60 11RF duloxetine 60 mg capsule,delayed release(DR/EC) 120 mg PO DAILY Qty: 60 11RF sertraline [Zoloft] 100 mg tablet 200 mg PO DAILY Qty: 60 11RF trazodone 100 mg tablet 400 mg PO .HS PRN (Reason: insomnia) Qty: 120 11RF clonidine 0.1 mg/24 hr patch weekly 1 patch transdermal .Weekly bupropion HCl [Wellbutrin XL] 300 mg tablet extended release 24 hr 300 mg PO QAM Qty: 30 11RF pantoprazole [Protonix] 40 mg tablet,delayed release (DR/EC) 40 mg PO BID 30 Days Qty: 60 3RF clopidogrel [Plavix] 75 mg tablet 75 mg PO DAILY 90 Days Qty: 90 3RF potassium chloride [K-Tab] 20 mEq tablet extended release 20 meq PO BID Qty: 2 0RF losartan 100 mg tablet 100 mg PO DAILY Qty: 90 3RF aspirin 81 mg Tablet,Delayed Release (Dr/Ec) 81 mg PO DAILY hydralazine 100 mg tablet 100 mg PO BID nitroglycerin 0.4 mg Tablet, Sublingual 0.4 mg sublingual Q5M PRN (Reason: Chest Pain) Qty: 20 0RF terazosin 5 mg capsule 5 mg PO DAILY metoprolol tartrate 100 mg tablet 100 mg PO BID nifedipine 60 mg tablet extended release 24hr 60 mg PO DAILY Discharge Orders: Discharge ED (Routine); Ordered 05/24/25 Ordered By: Raghu Aquino Referrals: Funmilayo Horne FNP [Primary Care Provider, Nurse Practitioner] Patient Instructions: Opioid Safety, Pain Management, Patient Portal & [place] Instructions Activity Restrictions/Additional Instructions: As we discussed while you are in the emergency department this evening there was no evidence that you had a blood clot or disruption of your fistula in your left arm. There was also no findings that suggested infection or other ongoing emergency medical condition however it is important that you continue to follow-up to ensure that any persistent or developing condition is cared for. Follow-up with dialysis in the morning and let them evaluate your arm to ensure that it is appropriate to be used for your dialysis run tomorrow. If at anytime he have any worsening or concerning symptoms you are welcome to return to the emergency department for reevaluation. Print Language: Kenyan Coding Level of Care Code ED Hospital Cleaning Specialist for Betito Jung
[2025-05-24] MEDS: HYDROcodone-acetaminophen 5-325 mg Tablet 1 TAB PO (22:37)
== END 2025-05-24 22:41 | disposition home or self-care (01) ==
PROVIDERS: Emergency Provider Emergency Medicine; PCP Nurse Practitioner Family
DX: M79.602 Pain in left arm (principal); Z79.82 Long term (current) use of aspirin; Z87.891 Personal history of nicotine dependence; I25.119 Atherosclerotic heart disease of native coronary artery with unspecified angina pectoris; E78.5 Hyperlipidemia, unspecified; E11.22 Type 2 diabetes mellitus with diabetic chronic kidney disease; I12.9 Hypertensive chronic kidney disease with stage 1 through stage 4 chronic kidney disease, or unspecified chronic kidney disease; N18.9 Chronic kidney disease, unspecified
CPT/HCPCS: 93005; 93971; 99284; J9999

== ENCOUNTER → 2025-05-30 15:18 | Outpatient (BNVA) | payer MEDICARE, MEDICAID, SELFPAY ==
[2025-01-03 10:37] VITALS: BP 146/81; BMI 28.8
== END ==
PROVIDERS: PCP Nurse Practitioner Family; Visit Provider Nurse Practitioner Family
DX: I25.10 Atherosclerotic heart disease of native coronary artery without angina pectoris (principal); I12.0 Hypertensive chronic kidney disease with stage 5 chronic kidney disease or end stage renal disease; E11.22 Type 2 diabetes mellitus with diabetic chronic kidney disease; N18.6 End stage renal disease; Z99.2 Dependence on renal dialysis; E78.2 Mixed hyperlipidemia; K92.1 Melena; E87.5 Hyperkalemia; Z79.02 Long term (current) use of antithrombotics/antiplatelets; Z79.82 Long term (current) use of aspirin; Z95.5 Presence of coronary angioplasty implant and graft; Z87.891 Personal history of nicotine dependence
CPT/HCPCS: 99213

== ENCOUNTER → 2025-06-06 15:25 | Outpatient (BNVA) | payer MEDICARE, MEDICAID, SELFPAY ==
[2025-01-03 10:37] VITALS: BP 146/81; BMI 28.8
== END ==
PROVIDERS: PCP Nurse Practitioner Family; Visit Provider Podiatrist Foot & Ankle Surgery
DX: E11.29 Type 2 diabetes mellitus with other diabetic kidney complication (principal); L60.3 Nail dystrophy; E11.649 Type 2 diabetes mellitus with hypoglycemia without coma; Z79.4 Long term (current) use of insulin; N18.6 End stage renal disease; Z99.2 Dependence on renal dialysis; G62.89 Other specified polyneuropathies
CPT/HCPCS: 11721

== ENCOUNTER 2025-07-23 07:49 | Emergency (ER) | payer OTHER, MEDICAID, SELFPAY ==
--- OUTSIDE RECORDS SUMMARY | 2024-08-06 04:00 | XMS_ITS ---
Author Organization [facility] Address [address] [place] [address] Care Team Providers Care Trench Trimmer Fine Name Role Phone Horne Funmilayo CANTU Primary Care Provider Unavailab Alverto Crocker Unavailable [phone] Migration, Provider Unavailable Unavailable Allergies Allergen (clinical [...] * Abimael SAHU GDOB:1970 (55 yo M)Acc No.[id number]:08/06/2024 Patient: Jose Abimael ARAUJO Stacie :1970 A ge:54 Y S ex:Male Address:[address] [place], [address] Subjective: * Chief Complaints: * E MR-Marcellus * Allergies: N ovocain: AllergyBenadryl: Allergy - Criticality HighINVanz: AllergyHydralazine: incontienence - Allergy * * Date:
[2025-01-03 10:37] VITALS: BP 146/81; BMI 28.8
[2025-07-23 07:43] VITALS: BP 161/83; PULSE 65; RESP 17; TEMP 36.5; O2SAT 94; BMI 24.7
--- NOTE | 2025-07-23 07:52 | XR_ITS ---
WS: [id number] XR chest 1V portable [id number] REASON FOR EXAM: dyspnea/cough FINDINGS: Right IJ dialysis catheter unchanged compared to 04/12/2025. Moderate ectasia and tortuosity of the aortic arch and thoracic aorta. Cardiomegaly. Mild central pulmonary venous congestion. No acute pulmonary parenchymal abnormality. Blunting of both costophrenic angles unchanged compared to 04/12/2025. XR/XR chest 1V portable [id number] IMPRESSION: Chest appears stable without acute abnormality as above.
--- OUTSIDE RECORDS SUMMARY | 2025-07-23 07:57 | XMS_ITS | Encounter Summary ---
Author Organization [place] [employer], [facility] Address [address] [place] [address] Phone Care Team Providers Care Public Address Technician Name Role Phone Unavailable Primary Care Provider Unavailabl e Encounter Details Date Type Department Care Team (Late st Contact Info) Description 04/23/2025 TCM in Dialysis Clinic [facility] [address] [place] [address] Vania Dudley NP [address] [place] [address] Social History Tobacco Use Types [...] 04/23/2025 The patient was seen for a [id number] visit as part of Transitional Care Management services. 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 Established or re-established referrals. COMMENTS: fistulogram IMPRESSION & PLAN COMMENTS: CP- heart cath s/p stent placement. Started Imdur ESRD- using CVC. Will have fistulogram done soon. HD per MWF. VISIT DIAGNOSES CPT Code 69725 - High complexity, seen within 7 days [...]
--- OUTSIDE RECORDS SUMMARY | 2025-07-23 07:57 | XMS_ITS | Clinical Summary ---
Author Organization [facility] Facility Address [address] [place] [address] Care Team Providers Care Gwot Ia/Ilo Intelligence Support Name Role Phone Unavailable Primary Care Provider Unavailabl e Encounters Date Type Department Care Team Description 07/19/2025 [facility] [address] [place] [address] Beatrice Young NP 07/18/2025 Orders Only [facility] [address] [place] [address] Shannon Cochran MD 07/18/2025 [facility] [address] [place] [address] Merlyn Smith NP End stage renal disease; Dependence on renal dialysis 07/11/2025 [facility] [address] [place] [address] Beatrice Young NP End stage renal disease; Dependence on renal dialysis 07/11/2025 Orders Only [facility] [address] [place] [address] Shannon Cochran MD 07/04/2025 Orders Only [facility] [address] [place] [address] Shannon Cochran MD 07/02/2025 [facility] [address] [place] [address] Shannon Cochran MD End stage renal disease; Dependence on renal dialysis 06/29/2025 [facility] [address] [place] [address] Shannon Cochran MD 06/27/[address] [place] [address], [facility] [address] [place] [address] Beatrice Young NP End stage renal disease; Dependence on renal dialysis; Hypertensive chronic kidney disease with stage 1 through stage 4 chronic kidney disease, or unspecified chronic kidney disease 06/27/2025 [facility], [facility] [address] [place] [address] Shannon Cochran MD 06/20/2025 [facility], [facility] [address] [place] [address] Shannon Cochran MD 06/18/[address] [place] [address], [facility] [address] [place] [address] Beatrice Young NP End stage renal disease; Dependence on renal dialysis; Hypertensive chronic kidney disease with stage 1 through stage 4 chronic kidney disease, or unspecified chronic kidney disease 06/13/2025 [facility], [facility] [address] [place] [address] Shannon Cochran MD 06/13/[address] [place] [address], [facility] [address] [place] [address] Merlyn Smith NP End stage renal disease; Dependence on renal dialysis 06/08/2025 [facility], [facility] [address] [place] [address] Shannon Cochran MD 06/04/2025 Orders Only [facility], [facility] [address] [place] [address] Shannon Cochran MD 06/04/[address] [place], [place] [address]rology [facility] [address] [place] [address] Merlyn Smith NP End stage renal disease; Dependence on renal dialysis 05/30/2025 Orders Only [facility], [facility] [address] [place] [address] Shannon Cochran MD 05/23/2025 Orders Only [facility], [facility] [address] [place] [address] Shannon Cochran MD 05/23/[address] [place] [address], [facility] [address] [place] [address] Merlyn Smith NP End stage renal disease; Dependence on renal dialysis 05/21/2025 Treatment 8[facility], [facility] [address] [place] [address] Shannon Cochran MD End stage renal disease; Dependence on renal dialysis 05/18/[address] [place] [address], [facility] [address] [place] [address] Beatrice Young NP End stage renal disease; Dependence on renal dialysis; Hypertensive chronic kidney disease with stage 1 through stage 4 chronic kidney disease, or unspecified chronic kidney disease 05/16/2025 Orders Only [facility], [facility] [address] [place] [address] Shannon Cochran MD 05/09/2025 Orders Only [facility], [facility] [address] [place] [address] Shannon Cochran MD 05/02/2025 Orders Only [facility], [facility] [address] [place] [address] Shannon Cochran MD 05/02/2025 [facility], [facility] [address] [place] [address] Shannon Cochran MD End stage renal disease; Dependence on renal dialysis 04/25/2025 Orders Only [facility], [facility] [address] [place] [address] Shannon Cochran MD 04/23/2025 Orders Only [facility], [facility] [address] [place] [address] Shannon Cochran MD 04/23/2025 [facility] [address] [place], [place] [address]rology [facility], [facility] [address] [place] [address] Merlyn Smith NP 04/23/[address] [place] [address], [facility] [address] [place] [address] Merlyn Smith NP End stage renal disease; Dependence on renal dialysis; Hypertensive chronic kidney disease with stage 1 through stage 4 chronic kidney disease, or unspecified chronic kidney disease from Last 3 Months Family History Medical [...] Comments Blood Pressure 112/70 12/17/2016 11:00 AM REPAIR TECHNICIAN Pulse 64 12/17/2016 11:00 AM REPAIR TECHNICIAN Temperature - - Respiratory Rate - - Oxygen Saturation - - Inhaled Oxygen Concentration - - Weight 126 kg (277 lb 6.4 oz) 12/17/2016 11:00 A M REPAIR TECHNICIAN Height 203.2 cm (6' 8 ) 12/17/2016 11:00 AM REPAIR TECHNICIAN Body Mass Index 30.47 12/17/2016 11:00 AM REPAIR TECHNICIAN Plan of Treatment Health Maintenance Due Date Last Done Comments Hepatitis B Vaccine (1 of 5 - Risk Dialysis 4-dose series) 1990 Pneumococcal Vaccine: 50+ Ye ars (2 of 2 - PCV) 10/20/2017 10/20/2016 Colorectal Cancer Screening: Annual FOBT 2019 Colorectal Cancer Screening: Colonoscopy 2019 Colorectal Cancer Screening: Sigmoidoscopy 2019 Diabetes: Hemoglobin A1C 07/17/2024 03/31/2019, 03/0 04/2017 Diabetes: Pedal Pulse Checked 07/17/2024 Diabetes: Sensory Foot Exam 07/17/2024 Diabetes: Visual Foot Exam 07/17/2024 Influenza Vaccine (#1) 2025 07/26/2024, 2014 Diabetes: Ophthalmology Exam 08/10/2025 08/10/2024 Pneumococcal Vaccine: Peds ( 0 to 5 Years) and At-Risk Patients (6 to 49 Years) Discontinued 10/20/2016 Procedures Procedure Name Priority Date/Time Associated Diagnosis Comments CHEMISTRY Routine 07/18/2025 HEMATOLOGY Routine 07/18/2025 [facility] LAB RESULTS Routine 07/11/2025 HD KINETICS Routine 07/11/2025 POST CHEMISTRY Routine 07/11/2025 CHEMISTRY Routine 07/11/2025 HEMATOLOGY Routine 07/11/2025 CHEMISTRY Routine 07/04/2025 HEMATOLOGY Routine 07/04/2025 HEMATOLOGY Routine 06/27/2025 CHEMISTRY Routine 06/27/2025 CHEMISTRY Routine 06/20/2025 HEMATOLOGY Routine 06/20/2025 SPECTRA LUIS MIGUEL LAB RESULTS Routine 06/13/2025 HD KINETICS Routine 06/13/2025 POST CHEMISTRY Routine 06/13/2025 CHEMISTRY Routine 06/13/2025 CHEMISTRY Routine 06/13/2025 TRACE ELEMENTS Routine 06/13/2025 HEMATOLOGY Routine 06/13/2025 CHEMISTRY Routine 06/04/2025 HEMATOLOGY Routine 06/04/2025 CHEMISTRY Routine 05/30/2025 HEMATOLOGY Routine 05/30/2025 CHEMISTRY Routine 05/23/2025 HEMATOLOGY Routine 05/23/2025 [facility]RA [facility]IS MIG[facility] LAB [...] 04/23/2025 CHEMISTRY Routine 04/23/2025 HEMATOLOGY Routine 04/23/2025 HEMOGLOBIN A1C Routine 12/15/2016 12:00 AM REPAIR TECHNICIAN from Last 3 Months or Most Recently Relevant to Health Maintenance Results * (ABNORMAL) HEMATOLOGY (07/18/2025) Only the most recent of14 resultswithin the time period is included. Hemoglobin 10.4(L) 14.0 - 18.0 g/dL [facility] Hemoglobin x 3 31.2(L) 42.0 - 54.0 % [facility] 07/18/2025 07/19/2025 11: 23 AM CDT Narrative [employer] - 07/19/2025 Unless otherwise specified, test(s) performed at: [facility], [address] [place] [id number] RACQUET MAKER: Dar Kang M.D. For any questions, please call customer service at FREQUENCY:OTHER Resulting Agency Comment Specimen source: Blood Shannon Cochrna MD LAB BLOOD ORDERABLES Final Re sult [email or web address] See order comments or contact performing lab Unknown, [place] * (ABNORMAL) [facility] Chemistry (07/18/2025) Only the most recent of16 resultswithin the time period is included. Pathologist [facility] BUN 28(H) 6 - 19 mg/dL [facility] Creatinine 6.01(H) 0.60 - 1.30 mg/dL [facility] BUN/Creatinine Ratio 4.7(L) 10.0 - 20.0 [facility] Chloride 99 96 - 108 mEq/L [facility] Bicarbonate (CO2) 27 22 - 29 mEq/L [facility] 07/18/2025 07/19/2025 10: 02 AM CDT Narrative [facility] 07/19/2025 Unless otherwise specified, test(s) performed at: [facility], [address] [place], [place] [id number] RACQUET MAKER: Dar Kang M.D. For any questions, please call customer service at FREQUENCY:OTHER Resulting Agency Comment Specimen source: Serum us Shannon Cochran MD LAB BLOOD ORDERABLES Final Re sult Performing Organization Address [facility] de Phone Number [facility] See order comments or contact performing lab Unknown, [place] * HD KINETICS (07/11/2025) Only the most recent of4 resultswithin the time period is included. Pathologist [facility] % Urea Reduction 72 65 - 80 % [facility] 07/11/2025 07/12/2025 10: 30 AM CDT Narrative Resulting Agency Comment Specimen source: Plasma us Shannon Cochran MD LAB BLOOD ORDERABLES Final Re sult Performing Organization Address [facility] Phone Number [facility] See order comments or contact performing lab Unknown, [place] * POST CHEMISTRY (07/11/2025) Only the most recent of4 resultswithin the time period is included. Pathologist [facility] BUN Post Dialysis 8 6 - 19 mg/dL [facility] 07/11/2025 07/12/2025 10: 30 AM CDT Narrative [facility] - 07/12/2025 Unless otherwise specified, test(s) performed at: [facility], [address] [place], [place] [id number] RACQUET MAKER: Dar Kang M.D. For any questions, please call customer service at FREQUENCY:MONTHLY Resulting Agency Comment Specimen source: Plasma us Shannon Cochran MD LAB BLOOD ORDERABLES Final Re sult Performing Organization Address [facility] de Phone Number [employer] [facility] See order comments or contact performing lab Unknown, [place] * [facility] Lab Results (07/11/2025) Only the most recent of4 resultswithin the time period is included. spKt/V (Daugirdas II) 1.46 [facility] eKt/V (Tattersall) 1.29 [facility] 07/11/2025 07/11/2025 Luis Miguel Ordering Provider LAB BLOOD ORDERABLES Final Result Performing Organization Address [facility] Co de Phone Number [facility] Contact Performing lab Unknown, [place] * TRACE ELEMENTS (06/13/2025) Aluminum 5 0 - 10 mcg/L [facility] Comment: This test was developed and its performance characteristics determined by [facility]. It has not been cleared or approved by the FDA. The laboratory is regulated under CLIA as qualified to perform high complexity testing. This test is used for clinical purposes. It should not be regarded as investigational or for research. 06/13/2025 06/14/2025 10: 46 AM CDT Narrative [facility] - 06/14/2025 Unless otherwise specified, test(s) performed at: [facility], [address] [place] [address] RACQUET MAKER: Dar Kang M.D. For any questions, please call customer service at FREQUENCY:MONTHLY Resulting Agency Comment Specimen source: Serum Shannon Cochran MD LAB BLOOD ORDERABLES Final Re sult Performing Organization Address [facility] de Phone Number [facility] See order comments or contact performing lab Unknown, [place] * (ABNORMAL) Hemoglobin A1c (12/15/2016 12:00 AM REPAIR TECHNICIAN) Hemoglobin A1C 8.6(H) 4.0 - 6.0 % SNA Comment per courtesy lab ms SNA 12/15/2016 Riki Vogel MD LAB BLOOD ORDERABLES Fi nal Result Performing Organization Address [facility]/ZIP Co de Phone Number SNA from Last 3 Months or Most Recently Relevant to Health Maintenance Insurance Medicaid [place] ([id number]) [facility] Medicare
--- OUTSIDE RECORDS SUMMARY | 2025-07-23 07:57 | XMS_ITS | Encounter Summary ---
Author Organization [facility] Address [address] [place] [address] Phone Care Team Providers Care Tile Professional Name Role Phone Unavailable Primary Care Provider Unavailabl e Encounter Details Date Type Department Care Team (Late st Contact Info) Description 07/11/[address] [facility] [address] [place] [address] Beatrice Young NP [address] [place] [address] End stage renal disease; Dependence [...] encounter Miscellaneous Notes * Dialysis Note - Beatrice Young NP - 07/11/2025 12:00 AM CDT Patient: Abimael Cochran, 1970, 55y, M Dialysis Location: [facility] Attending Firer Glost Kiln: Shannon Cochran Service Date: 07/11/2025 Service Provider: Beatrice Young NP I met face to face with the patient today. OVERVIEW The patient presented with ESRD on dialysis Primary cause of renal failure: Acute kidney failure with tubular necrosis Comments: VSS, Seen on hd machine. He did have chest pain and had ACS. Did have stents placed. He is on plavix now. He does have a LUE AVF. He still has a tunneled HD catheter so now on plavix. Will not be able to take tunneled HD catheterout until ~ October 2025. He still wants to do HHD but not now. Medications and labs reviewed. HOME MEDICATIONS Comments: on Requip 0.25 mg. Increased to 0.5 mg 06/13/2025 LAST HOSPITALIZATION Discharge Diagnosis: I20.0 Unstable angina N18.6 End stage renal disease Admission Date 04/12/25 Discharge Date 04/18/25 DIALYSIS PRESCRIPTION IHD 3x Week Start date: 07/02/25 Dialyzer: 180NRe Optiflux BFR: 450 DFR: Autoflow 2 Potassium: 3.0 Sodium: 137 EDW: 101.3 Duration: 4:15 Calcium: 2.5 Bicarb: 33 Rx updated on: 07/02/2025 TREATMENT ASSESSMENT Comments: Stable at goal. BP Stand Pre 07/13/2025: 145/98 07/11/2025: 117/58 07/09/2025: 101/65 BP Sit Pre 07/13/2025: 160/85 07/11/2025: 137/75 07/09/2025: 97/57 BP Stand Post 07/13/2025: 122/65 07/11/2025: 117/68 07/09/2025: 125/61 BP Sit Post 07/13/2025: 132/69 07/11/2025: 124/67 07/09/2025: 133/74 Prescribed Tx time 07/13/2025: 4:15 07/11/2025: 4:15 07/09/2025: 4:15 Tx Duration 07/13/2025: 4:20 07/11/2025: 4:18 07/09/2025: 4:19 Missed Treatments 0 - last 30 days 0 - last 60 days FLUID ASSESSMENT Comments: Continue to challenge as tolerated EDW (kg) 07/13/2025: 101.3 07/11/2025: 101.3 07/09/2025: 101.3 Weight Pre (kg) 07/13/2025: 103.4 07/11/2025: 102.8 07/09/2025: 103.7 Weight Post (kg) 07/13/2025: 101.6 07/11/2025: 101.5 07/09/2025: 101.8 PWV (kg) 07/13/2025: 0.3 07/11/2025: 0.2 07/09/2025: 0.5 UF Rate (mL/kg/hr) 07/13/2025: 4.1 07/11/2025: 3 07/09/2025: 4.3 ADEQUACY ASSESSMENT Comments: Stable trend Adequacy target met. spKt/V, URR 07/11/2025: 1.46, 72.0 06/13/2025: 1.42, 73.0 05/16/2025: 1.39, 72.0 ACCESS ASSESSMENT Access Type: CVCatheter Access SubType: Tunneled Access Status: Active (In Use) - 07/13/2024 Access Location: Chest Placed: 07/06/2024 Comments: Continues with cannulation and flow impairments in AVF. Repeat fistulograms locating stealers and significant cephalic stenosis. Team communicating with vascular services regarding ongoing dysfunction. Vascular access reviewed. ANEMIA ASSESSMENT Comments: JAK and iron algorithms and therapies. HGB at goal. HGB, TSAT 07/11/2025: 10.7, 23.0 07/04/2025: 10.8, - 06/27/2025: 10.4, - Ferritin 06/13/2025: 422.0 04/04/2025: 382.0 03/14/2025: 419.0 Mircera, IVP (mcg) 07/02/2025: 75 06/18/2025: 100 06/04/2025: 100 Iron Sucrose (Venofer) (mg) 07/09/2025: 50 07/02/2025: 50 06/25/2025: 50 BMM ASSESSMENT Comments: PTH is low: not on calcitriol PTH, Intact 06/13/2025: 95.0 05/16/2025: 40.0 03/14/2025: 153.0 Calcium, Phosphorus 07/11/2025: 8.8, 4.3 06/13/2025: 8.5, 4.4 05/16/2025: 8.5, 3.8 Vitamin D (Calcitriol) Oral (mcg) 05/21/2025: 0.75 05/18/2025: 0.75 05/16/2025: 0.75 NUTRITION ASSESSMENT Comments: Update: reporting some improvement in appetite with addition of megesterol: monitor Ed to eat protien in diet; hx of gastric sleeve so he does eat smaller meals. Albumin is better. Potassium, Albumin 07/11/2025: 4.3, 3.8 06/13/2025: 3.7, 3.8 05/16/2025: 4.0, 3.4 eNPCR 06/13/2025: 0.44 05/16/2025: 0.48 04/23/2025: 0.62 PHYSICAL EXAM Exam Not Performed. DIAGNOSIS Chief Complaint: N18.6 End stage renal disease Patient data updated 07/15/2025 at 11:08 AM Signed By: Beatrice Young NP on 07/15/2025 11:10:56 AM documented in this encounter Plan of Treatment Not on file documented as of this encounter Visit Diagnoses Diagnosis End stage renal disease Dependence on renal dialysis documented in this encounter
--- OUTSIDE RECORDS SUMMARY | 2025-07-23 07:58 | XMS_ITS | Encounter Summary ---
Author Organization [facility] [employer] Address [address] [place] [address] Phone Care Team Providers Care Soft Water Mechanic Name Role Phone Unavailable Primary Care Provider Unavailabl e Encounter Details Date Type Department Care Team (Late st Contact Info) Description 07/18/2025 Orders Only [facility] [address] [place] [address] Shannon Cochran MD [address] [place] [address] Social History Tobacco Use Types [...] Priority Date/Time Associated Diagnosis Comments HEMATOLOGY Routine 07/18/2025 CHEMISTRY Routine 07/18/2025 documented in this encounter Results * (ABNORMAL) [facility] (07/18/2025) BUN 28(H) 6 - 19 mg/dL [facility] Creatinine 6.01(H) 0.60 - 1.30 mg/dL [facility] BUN/Creatinine Ratio 4.7(L) 10.0 - 20.0 [facility] Chloride 99 96 - 108 mEq/L [facility] Bicarbonate (CO2) 27 22 - 29 mEq/L [facility] 07/18/2025 07/19/2025 10: 02 AM CDT Narrative [facility] - 07/19/2025 Unless otherwise specified, test(s) performed at: [facility], [address] [place] [address] TOBACCO BLENDER: Dar Kang M.D. For any questions, please call customer service at FREQUENCY:OTHER Resulting Agency Comment Specimen source: Serum us Shannon Cochran MD LAB BLOOD ORDERABLES Final Re sult Performing Organization Address [facility] de Phone Number [employer] See order comments or contact performing lab Unknown, [place] * (ABNORMAL) HEMATOLOGY (07/18/2025) Hemoglobin 10.4(L) 14.0 - 18.0 g/dL [facility] Hemoglobin x 3 31.2(L) 42.0 - 54.0 % [facility] 07/18/2025 07/19/2025 11: 23 AM CDT Narrative [facility] - 07/19/2025 Unless otherwise specified, test(s) performed at: [facility], [address] [place] [address] TOBACCO BLENDER: Dar Kang M.D. For any questions, please call customer service at FREQUENCY:OTHER Resulting Agency Comment Specimen source: Blood us Shannon Cochran MD LAB BLOOD ORDERABLES Final Re sult Performing Organization Address [facility] Co de Phone Number [employer] See order comments or contact performing lab Unknown, [place] documented in this encounter Visit Diagnoses Not on filedocumented in this encounter
--- OUTSIDE RECORDS SUMMARY | 2025-07-23 07:58 | XMS_ITS | Encounter Summary ---
Author Organization [facility] Address [address] [place] [address] Care Team Providers Care Title I Math Tutor Name Role Phone Osmani Contreras MD Primary Care Provider [phone] Encounter Details Date Type Department Care Team (Latest Contact Info) Description 08/20/1999 Outpatient Historical [facility] Bharathi Walker MD [address] [facility] [address] [place] [address] Hernia of unspecified site of abdominal cavity without mention of obstruction or gangrene (Primary Dx) Social History Tobacco Use Types Packs/Day Years Used Date Smoking Tobacco: Never Assessed Sex and Gender Information Value Date Recorded Sex Assigned at Not on file Legal Sex Male 3:06 AM FOOD SAFETY SPECIALIST Gender Identity Not on file Sexual [...] C Diff Comment:Resolved 09/08/2018, Infection Prevention 03/11/16 ([facility]) 03/25/2016 03/25/2016 8 7:46 AM FOOD SAFETY SPECIALIST documented as of this encounter Care Teams Title I Math Tutor Relationship Specialty Start Date End Date Osmani Contreras MD [address] [place] [address] PCP - General Family Practice 12/04/15 documented as of this encounter
--- OUTSIDE RECORDS SUMMARY | 2025-07-23 07:58 | XMS_ITS | Clinical Summary ---
Author Organization [facility] Address [address] Attn: [place] [address] Care Team Providers Care Music Copyist Name Role Phone Osmani Contreras MD Primary Care Provider [phone] Allergies Active Allergy Reactions Criticality Noted Date [...] differently: 100 mgOralTWO TIMES DAILY, Reported on 07/03/2025 Saccharomyces boulardii (FLORASTOR) 250 mg Capsule Take 1 Capsule (250 mg) by mouth 2 times daily. 60 Capsule 0 9 Active traZODone (DESYREL) 50 mg tablet Take 1 Tablet (50 mg) by mouth nightly as needed for Insomnia. 30 Tablet 0 6 Active Additional Information Patient taking differently: 100 mgOral NIGHTLY PRN, Reported on 07/03/2025 cyclobenzaprin e (FLEXERIL) 10 mg tablet Take 1 Tablet (10 mg) by mouth 3 times daily as needed for Spasm. 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 1 Each 0 6 Active albuterol sulfate [...] 2 Active fluticasone propionate (FLONASE) 50 mcg/spray [place], Suspension nasal inhaler 2 Active aspirin (ECOTRIN EC) 81 mg Tablet, Delayed Release (E.C.) Take 81 mg by mouth daily. Active Alpha Lipoic Acid 200 mg Tablet Take 1 Tablet by mouth 2 times daily. 4 Active busPIRone (BUSPAR) 10 mg tablet Take 1 Tablet by mouth 2 times daily. 4 Active Bgriktbx-YED-6 0.1 mg/24 hr patch Apply 1 Patch [...] mg tabletIndicati ons:ESRD (end stage renal disease) Take 1 Tablet by mouth every 4 hours as needed for Pain, Moderate. Max Daily Amount: 6 Tablets 20 Tablet 5 Active Ana-Yue 0.8 mg Tablet Take 1 Tablet by mouth daily. 5 Active megestroL (MEGACE) 400 mg/10 mL (10 mL) Suspension suspension Take 10 mL by mouth daily. 5 Active terazosin (HYTRIN) 5 mg capsule Take 5 mg by mouth daily at bedtime. Active Active Problems Problem Noted Date Diagnosed [...] (02/06/2021): Added automatically from request for surgery [id number] Chronic left-sided low back pain without sciatic [...] 09/24/2015 016 Bilateral low back pain 09/24/2015 02/05/2016 S/P biopsy 09/22/2015 05/04/2016 Right hip pain [...] Encounters Date Type Department Care Team Description 07/17/2025 External Device Data STL ABSTRACTION Provider, Abstract 07/03/2025 10:52 AM CDT - 07/03/2025 11:59 PM CDT Hospital Encounter [facility] [address] [place] [address] Shannon Sahu MD Birlew, Ryan Avery, MD Discharge Disposition: Home or Self Care 06/13/2025 External Device Data STL ABSTRACTION Provider, Abstract 06/12/2025 External Device Data ST[facility] ABSTRACTION Provider, Abstract 05/16/2025 External Device Data [facility] ABSTRACTION Provider, Abstract 05/10/2025 10:00 AM CDT - 05/10/2025 11:59 PM CDT Hospital Encounter [facility] [address] [place] [id number] Francoise Kinney MD Hegg, Sanjeev Gates MD Discharge Disposition: Home or Self Care 05/09/2025 Telephone [facility] [address] 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 [employer] Gender Identity Not on file Sexual Orientation Not on file Last Filed Vital Signs Vital Sign Reading Time Taken Comments Blood Pressure 153/81 07/03/2025 2:08 PM CDT Pulse 62 07/03/2025 2:08 PM CDT Temperature 36.4 C (97.6 F) 07/03/2025 2:08 PM CDT Respiratory Rate 16 07/03/2025 2:08 PM CDT Oxygen Saturation 94% 07/03/2025 2:08 PM CDT Inhaled Oxygen Concentration - - Weight 99.8 kg (220 lb) 07/03/2025 11:19 AM CDT Height 200 cm (6' 6.75 ) 07/03/2025 11:19 AM CDT Body Mass Index 24.94 07/03/2025 11:19 AM CDT Plan of Treatment Upcoming Encounters Date Type Department Care Team (Late st Contact Info) Description 08/09/2025 12:50 PM CDT Office Visit [facility] [place] [address] [place] [address] Carol Morales MD [address] [place] [address] Health Maintenance Due Date Last [...] MONTHS 02/11/20232021, 03/31/2019, 03/31/2019, Additional history exists INFLUENZA VACCINE (#1) 2025 , 07/25/2018, 09/21/2015 COVID-19 Vaccine (3 - 2024-2 6 season) 2025 06/15/2021, 05/18/2021 DIABETES ANNUAL RETINAL EXAM 08/10/2025, 08/10/2024, 08/10/2024, Additional history exists Abdominal Aortic Aneurysm (A AA) Screening Completed 03/22/2016 Medical Devices Implanted Type Area Director Strategy Device Identifier Shelf Expiration Date Model / Serial / Lot Clip Ligating Horizon Med Ti [id number] - Csc - [id number] Implanted:Qty: 1 on 12/28/2024 by Francoise Kinney MD at [facility] Clip Left: Arm TELEFLEX- WECK CLOSURE SYS [id number] 07/18/2029 [id number] / / [id number] Clip Ligating Horizon Red [id number] - Csc - [id number] Implanted:Qty: 1 on 12/28/2024 by Francoise Kinney MD at [facility] Clip Left: Arm [employer] [id number] 09/02/2029 / / [id number] Coil Emb María .035 6mm 14cm Micro Pltnm [id number] - [id number] Implanted:Qty: 1 on 05/10/2025 by Sanjeev Espinosa MD at [facility] Coil Left: Vein COOK- INTERVENTIONAL RAD [id number] 02/22/2030 [id number] / / [id number] Coil Emb María .035 6mm 14cm Micro Pltnm [id number] - [id number] Implanted:Qty: 1 on 05/10/2025 by Sanjeev Espinosa MD at [facility] Coil Left: Vein COOK- INTERVENTIONAL RAD [id number] 02/12/2030 [id number] / / [id number] Coil Interlock-35 360 [id number] - [id number] Implanted:Qty: 1 on 05/10/2025 by Sanjeev Espinosa MD at [facility] Coil Left: Vein [employer] SCI- NEUROVASC [id number] 04/14/2027 [id number] / / [id number] Coil Emb María .035 6mm 14cm Micro Pltnm [id number] - [id number] Implanted:Qty: 1 on 05/10/2025 by Sanjeev Espinosa MD at [facility] Coil Left: Vein COOK- INTERVENTIONAL RAD [id number] 02/12/2030 [id number] / / [id number] Coil Emb María .035 6mm 14cm Micro Pltnm [id number] - [id number] Implanted:Qty: 1 on 05/10/2025 by Sanjeev Espinosa MD at [facility] Coil Left: Vein COOK- INTERVENTIONAL RAD [id number] 02/12/2030 [id number] / / [id number] Coil Emb María .035 6mm 14cm Micro Pltnm Q53776 - [id number] Implanted:Qty: 1 on 05/10/2025 by Sanjeev Espinosa MD at [facility] Coil Left: Vein COOK- INTERVENTIONAL RAD [id number] 02/12/2030 [id number] / / [id number] Coil Emb María .035 6mm 14cm Micro Pltnm [id number] - [id number] Implanted:Qty: 1 on 05/10/2025 by Sanjeev Espinosa MD at [facility] Coil Left: Vein COOK- INTERVENTIONAL RAD [id number] 02/12/2030 [id number] / / [id number] Coil Emb María .035 6mm 14cm Micro Pltnm [id number] - [id number] Implanted:Qty: 1 on 05/10/2025 by Sanjeev Espinosa MD at [facility] Coil Left: Vein COOK- INTERVENTIONAL RAD [id number] 02/22/2030 [id number] / / [id number] Screw Hex Int Rc Bl 6.4x110 [id number] - [id number] Implanted:Qty: 1 on 03/30/2019 by Colt Garza MD Screw Right: Femur FOWLER NEPHEW ORTHO 07/30/2025 [id number] / / [id number] Screw Hex Int Rc Bl 6.4x115 [id number] - [id number] Implanted:Qty: 1 on 03/30/2019 by Colt Garza MD Screw Right: Femur FOWLER NEPHEW ORTHO 01/08/2022 [id number] / / [id number] Screw Trgn Lp 5.0x50mm 3653-8190 - [id number] Implanted:Qty: 1 on 03/30/2019 by Colt Garza MD Screw Right: Femur FOW[employer]ER NEPHEW ORTHO 02/11/2029 [id number] / / [id number] Screw Trgn Lp 5.0x60mm 8745-7927 - [id number] Implanted:Qty: 1 on 03/30/2019 by Colt Garza MD Screw Right: Femur FOWLER NEPHEW ORTHO 10/11/2026 [id number] / / [id number] Nail Implanted:Qty: 1 on 03/30/2019 by Colt Garza MD Right: Femur FOWLER NEPHEW ORTHO 08/10/2020 [id number] / / [id number] Explanted Type Area Director Strategy Device Identifier Shelf Expiration Date Model / Serial / Lot Nail Fan Jud Rt [id number] - [id number] Implanted:Qty: 1 on 09/07/2018 by Colt Garza MD Explanted:Qty: 1 on 03/30/2019 by Colt Garza MD Nail Right: Femur FOWLER [employer]PHEW ORTHO 10/04/2025 [id number] / / [id number] Description:INV Screw Hex Int Rc Bl 6.4x110 [id number] - [id number] Implanted:Qty: 1 on 09/07/2018 by Colt Garza MD Explanted:Qty: 1 on 03/30/2019 by Colt Garza MD Screw Right: Femur FOWLER NEPHEW ORTHO 05/19/2027 [id number] / / [id number] Description:INV Screw Hex Int Rc Bl 6.4x115 [id number] - [id number] Implanted:Qty: 1 on 09/07/2018 by Colt Garza MD Explanted:Qty: 1 on 03/30/2019 by Colt Garza MD Screw Right: Femur FOWLER NEPHEW ORTHO 12/08/2019 [id number] / / [id number] Description:INV Screw Trgn Lp 5.0x47.5mm 2947-9537 - [id number] Implanted:Qty: 1 on 09/07/2018 by Colt Garza MD Explanted:Qty: 1 on 03/30/2019 by Colt Garza MD Screw Right: Femur FOWLER NEPHEW ORTHO 02/03/2028 [id number] / / [id number] Description:INV Screw Trgn Lp 5.0x52.5mm 9723-1922 - [id number] Implanted:Qty: 1 on 09/07/2018 by Colt Garza MD Explanted:Qty: 1 on 03/30/2019 by Colt Garza MD Screw Right: Femur FOWLER NEPHEW ORTHO 03/13/2028 [id number] / / [id number] Description:INV Procedures Procedure Name Priority Date/Time Associated Diagnosis Comments IR FISTULOGRAM Routine 07/03/2025 1:28 PM CDT ESRD (end stage renal disease) ([facility]) IR FISTULOGRAM Routine 05/10/2025 12:31 PM CDT ESRD (end stage renal disease) ([facility]) HEMOGLOBIN A1C Routine 03/31/2019 10:[address] ABDOMEN PELVIS WO CONTRAST IP Routine 03/22/2016 10:33 PM CDT from Last 3 Months or Most Recently Relevant to Health Maintenance Results * IR FISTULOGRAM (07/03/2025 1:28 PM CDT) Only the most recent of2 resultswithin the time period is included. Anatomical Region Laterality Modality X-Ray Angiograph y 07/03/2025 1:28 PM CDT Impressions 07/03/2025 7:47 PM CDT IMPRESSION: Please see below. Exam: IR FISTULOGRAM 1. Ultrasound guided antegrade micropuncture access of the left brachiocephalic fistula 2. Central venogram including the left subclavian vein, left brachiocephalic vein, and superior vena cava 3. Left upper extremity brachiocephalic fistulogram 4. Reflux angiogram across the arterial anastomosis 5. Percutaneous transluminal angioplasty of recurrent moderate (60%) severity, moderate length stenosis of the cephalic vein outflow with 9 mm balloon and 9 mm Lutonix drug coated balloon 6. Completion angiogram Date/Time of Exam: 07/03/2025 1:28 PM REASON FOR EXAM: Whistling in fistula. DIAGNOSIS: ESRD (end stage renal disease) ([facility]). Medications: Fentanyl and versed were titrated to effect. Moderate (conscious) sedation for this procedure was performed with continuous physician supervision. Medical history, physical exam, drug dosages, routes of drug administration, monitoring data, and precise times of service are documented in the medical record on the [facility]-approved form, 'Sedative/Analgesic Administration for Diagnostic and Therapeutic Procedures'. Please see nursing flow sheets for dosage and time. Sedation was administered by a trained independent observer. I personally supervised 45 minutes of sedation. Contrast: 50 Isovue-300 Fluoroscopy time: 2.0 minutes Estimated Blood Loss: Minimal Complications:None Implantable Devices: None Procedure: After informed consent was obtained from the patient, the patient was taken to the angiography suite and placed supine on the angiography table. The patient's left arm was prepped and draped in sterile fashion. A timeout was performed. The fistula was evaluated with ultrasound. Under direct ultrasound guidance, antegrade micropuncture access was obtained in the periphery of the fistula after the skin was anesthetized with lidocaine. A fistulogram was performed and carried out centrally. The treated distal dilator was exchanged for a 6 Macanese vascular sheath over a 0.035 inch Glidewire. A 9 mm balloon was advanced into the cephalic vein outflow stenosis and angioplasty was performed. The sheath was then exchanged for a 7 Macanese sheath and a 9 mm Lutonix drug coated balloon was then deployed and inflated for 2.5 minutes. During the angioplasty, a reflux angiogram across the arterial anastomosis was performed. A completion angiogram was performed which revealed no residual significant stenosis. Hemostasis was achieved with pursestring but in suture technique. A sterile bandage was applied. The patient left the injury recently in good condition with decreased pulsatility in the fistula. Findings: 1. Ultrasound guided antegrade micropuncture access of the left brachiocephalic fistula demonstrates fistula patency. Needle entry was documented and sent to PACS. 2. Central venogram including the left subclavian vein, left brachiocephalic vein, and superior vena cava demonstrates no significant central stenosis. 3. Left upper extremity brachiocephalic fistulogram demonstrates recurrent moderate length segment of moderate severity (60%) stenosis in the cephalic vein outflow. 4. Reflux angiogram across the arterial anastomosis demonstrates no significant stenosis. 5. Percutaneous transluminal angioplasty of recurrent moderate (60%) severity, moderate length stenosis of the cephalic vein outflow with 9 mm balloon and 9 mm Lutonix drug coated balloon as above. 6. Completion angiogram reveals no residual stenosis. IMPRESSION: Recurrent moderate length segment of moderate severity stenosis in the cephalic vein outflow, successfully treated with 9 mm angioplasty and 9 mm Lutonix drug coated balloon. Narrative Procedure Note Sanjeev Gloria MD - 07/03/2025 IMPRESSION: Please see below. Exam: IR FISTULOGRAM 1. Ultrasound guided antegrade micropuncture access of the left brachiocephalic fistula 2. Central venogram including the left subclavian vein, left brachiocephalic vein, and superior vena cava 3. Left upper extremity brachiocephalic fistulogram 4. Reflux angiogram across the arterial anastomosis 5. Percutaneous transluminal angioplasty of recurrent moderate (60%) severity, moderate length stenosis of the cephalic vein outflow with 9 mm balloon and 9 mm Lutonix drug coated balloon 6. Completion angiogram Date/Time of Exam: 07/03/2025 1:28 PM REASON FOR EXAM: Whistling in fistula. DIAGNOSIS: ESRD (end stage renal disease) ([facility]). Medications: Fentanyl and versed were titrated to effect. Moderate (conscious) sedation for this procedure was performed with continuous physician supervision. Medical history, physical exam, drug dosages, routes of drug administration, monitoring data, and precise times of service are documented in the medical record on the [facility]-approved form, 'Sedative/Analgesic Administration for Diagnostic and Therapeutic Procedures'. Please see nursing flow sheets for dosage and time. Sedation was administered by a trained independent observer. I personally supervised 45 minutes of sedation. Contrast: 50 Isovue-300 Fluoroscopy time: 2.0 minutes Estimated Blood Loss: Minimal Complications:None Implantable Devices: None Procedure: After informed consent was obtained from the patient, the patient was taken to the angiography suite and placed supine on the angiography table. The patient's left arm was prepped and draped in sterile fashion. A timeout was performed. The fistula was evaluated with ultrasound. Under direct ultrasound guidance, antegrade micropuncture access was obtained in the periphery of the fistula after the skin was anesthetized with lidocaine. A fistulogram was performed and carried out centrally. The treated distal dilator was exchanged for a 6 Macanese vascular sheath over a 0.035 inch Glidewire. A 9 mm balloon was advanced into the cephalic vein outflow stenosis and angioplasty was performed. The sheath was then exchanged for a 7 Macanese sheath and a 9 mm Lutonix drug coated balloon was then deployed and inflated for 2.5 minutes. During the angioplasty, a reflux angiogram across the arterial anastomosis was performed. A completion angiogram was performed which revealed no residual significant stenosis. Hemostasis was achieved with pursestring but in suture technique. A sterile bandage was applied. The patient left the injury recently in good condition with decreased pulsatility in the fistula. Findings: 1. Ultrasound guided antegrade micropuncture access of the left brachiocephalic fistula demonstrates fistula patency. Needle entry was documented and sent to PACS. 2. Central venogram including the left subclavian vein, left brachiocephalic vein, and superior vena cava demonstrates no significant central stenosis. 3. Left upper extremity brachiocephalic fistulogram demonstrates recurrent moderate length segment of moderate severity (60%) stenosis in the cephalic vein outflow. 4. Reflux angiogram across the arterial anastomosis demonstrates no significant stenosis. 5. Percutaneous transluminal angioplasty of recurrent moderate (60%) severity, moderate length stenosis of the cephalic vein outflow with 9 mm balloon and 9 mm Lutonix drug coated balloon as above. 6. Completion angiogram reveals no residual stenosis. IMPRESSION: Recurrent moderate length segment of moderate severity stenosis in the cephalic vein outflow, successfully treated with 9 mm angioplasty and 9 mm Lutonix drug coated balloon. Shannon Sahu MD IR ORDERABLES Final Result * (ABNORMAL) HEMOGLOBIN A1C (03/31/2019 10:06 AM CDT) HEMOGLOBIN A1C 11.4(H) See comment % 03/31/2019 12:05 PM T [facility] EST. AVG GLUCOSE, A1C 280 mg/dL 03/31/2019 12:05 PM T [facility] Blood BLOOD SPECIMEN / Unknown Venipuncture / Unknown 03/31/2019 10:06 AM CDT 03/31/2019 10:33 AM CDT Narrative [facility] - 03/31/2019 12:05 PM CDT HGB A1C INTERPRETATION NORMAL: <5.7% PRE-DIABETES: 5.7 - 6.4% DIABETES: 6.5% OR GREATER Priya Tomas MD CHEMISTRY ORDERAB LES Final Result [facility] CLIA# [id number] [address] [place] [address] [facility]# [id number] [address] [place] [address] * CT ABDOMEN PELVIS WO CONTRAST (03/22/2016 [...] Most Recently Relevant to Health Maintenance Insurance UHC DUAL COMPLETE HMO [facility] [id number] [place] * Guarantor: ABIMAEL SAHU Account Type Relation to Patient Date of Phone Billing Address Personal/Family [address] [place] [address] [employer] Medicare Part D Advance Directives For more information, please contact: [phone] * Full Code (Latest Code Status on File) Date Activated Date Inactivated Comments 12/28/2024 5:56 AM 12/28/2024 12:08 PM Care Teams Music Copyist Relationship Specialty Start Date End Date Osmani Contreras MD [address] [place] [address] PCP - General Family Practice 12/04/15
--- OUTSIDE RECORDS SUMMARY | 2025-07-23 07:58 | XMS_ITS | Encounter Summary ---
Author Organization [facility], [facility] Address [address] [facility] [address] [place] [address] Phone Care Team Providers Care Elevator Constructor Supervisor Name Role Phone Unavailable Primary Care Provider Unavailabl e Reason for Visit * Reason Comments Med Refill Encounter Details Date Type Department Care Team (Late st Contact Info) Description [facility]20[facility] [address] [facility] [address] [place] [address] Beatrice Young NP [address] [facility] [address] [place] [address] Social History Tobacco Use Types [...]
--- OUTSIDE RECORDS SUMMARY | 2025-07-23 07:58 | XMS_ITS | Encounter Summary ---
Author Organization [email or web address], [facility] Address [address] [place] [address] Phone Care Team Providers Care Coagulating Bath Operator Name Role Phone Unavailable Primary Care Provider Unavailabl e Encounter Details Date Type Department Care Team (Late st Contact Info) Description 07/18/2025 Treatment [facility] [employer], [facility] [address] [place] [address] Merlyn Smith NP [address] [place] [address] End stage renal disease; Dependence [...] Dialysis Note - Merlyn Smith NP - 07/18/2025 12:00 AM CDT Patient: Abimael Cochran, 1970, 55y, M Dialysis Location: [facility] Attending Yard General Car Supervisor: Shannon Cochran Service Date: 07/18/2025 Service Provider: Merlyn Smith NP I met [...] wants to do HHD but not now. HOME MEDICATIONS Comments: on Requip 0.25 mg. Increased to 0.5 mg 06/13/2025 LAST HOSPITALIZATION Discharge Diagnosis: I20.0 Unstable angina N18.6 End stage renal disease Admission Date 04/12/25 Discharge Date 04/18/25 DIALYSIS PRESCRIPTION IHD 3x Week Start date: 07/18/25 Dialyzer: 180NRe Optiflux BFR: 500 DFR: Autoflow 2 Potassium: 3.0 Sodium: 137 EDW: 101.3 Duration: 4:15 Calcium: 2.5 Bicarb: 33 Rx updated on: 07/18/2025 TREATMENT ASSESSMENT Comments: Stable at goal. Blood pressure controlled. No changes indicated. BP Stand Pre 07/13/2025: 145/98 07/11/2025: 117/58 BP Sit Pre 07/16/2025: 99/54 07/13/2025: 160/85 07/11/2025: 137/75 BP Stand Post 07/16/2025: 120/65 07/13/2025: 122/65 07/11/2025: 117/68 BP Sit Post 07/16/2025: 123/65 07/13/2025: 132/69 07/11/2025: 124/67 Prescribed Tx time 07/16/2025: 4:15 07/13/2025: 4:15 07/11/2025: 4:15 Tx Duration 07/16/2025: 4:20 07/13/2025: 4:20 07/11/2025: 4:18 Missed Treatments 0 - last 30 days 0 - last 60 days FLUID ASSESSMENT Comments: Continue to challenge as tolerated EDW (kg) 07/16/2025: 101.3 07/13/2025: 101.3 07/11/2025: 101.3 Weight Pre (kg) 07/16/2025: 102.7 07/13/2025: 103.4 07/11/2025: 102.8 Weight Post (kg) 07/16/2025: 101.3 07/13/2025: 101.6 07/11/2025: 101.5 PWV (kg) 07/16/2025: 0.0 07/13/2025: 0.3 07/11/2025: 0.2 UF Rate (mL/kg/hr) 07/16/2025: 3.2 07/13/2025: 4.1 07/11/2025: 3 ADEQUACY ASSESSMENT Comments: Stable trend Adequacy target met. Prescription compliance acceptable. No changes indicated. spKt/V, URR 07/11/2025: 1.46, 72.0 06/13/2025: 1.42, 73.0 05/16/2025: 1.39, 72.0 ACCESS ASSESSMENT Access Type: AVFistula Access SubType: Standard Access Status: Active (In Use) - 07/11/2025 Access Location: Left Upper Arm Created: 12/28/2024 Comments: Continues with cannulation and flow impairments in AVF. Repeat fistulograms locating stealers and significant cephalic stenosis. Team communicating with vascular services regarding ongoing dysfunction. Vascular access reviewed. Current access is permanent and functioning well. ANEMIA ASSESSMENT Comments: JAK and iron algorithms and therapies. HGB, TSAT 07/11/2025: 10.7, 23.0 07/04/2025: 10.8, - 06/27/2025: 10.4, - Ferritin 06/13/2025: 422.0 04/04/2025: 382.0 03/14/2025: 419.0 Mircera, IVP (mcg) 07/16/2025: 75 07/02/2025: 75 06/18/2025: 100 Iron Sucrose (Venofer) (mg) 07/16/2025: 100 07/09/2025: 50 07/02/2025: 50 BMM ASSESSMENT Comments: PTH is low: [...] eNPCR 06/13/2025: 0.44 05/16/2025: 0.48 04/23/2025: 0.62 DIAGNOSIS Chief Complaint: N18.6 End stage renal disease Patient data updated 07/18/2025 at 9:43 AM Signed By: Merlyn Smith NP on 07/18/2025 9:46:04 AM documented in this encounter Plan of Treatment Not on file documented as of this encounter Visit Diagnoses Diagnosis End stage renal disease Dependence on renal dialysis documented in this encounter
--- OUTSIDE RECORDS SUMMARY | 2025-07-23 07:58 | XMS_ITS | Encounter Summary ---
Author Organization [facility] Address [address] [place] [address] Care Team Providers Care Analysis Intern Name Role Phone Osmani Contreras MD Primary Care Provider [phone] Reason for Visit * Reason Comments Medication Refill Encounter Details Date Type Department Care Team (Late st Contact Info) Description 05/14/2016 [facility]ill [facility] [address] [place] [address] [place] SKIN LAP BONDER NO ADDRESS ON FILE Social History Tobacco Use Types Packs/Day Years Used Date Smoking Tobacco: Former Smokeless Tobacco: Current Chew Alcohol Use Standard Drinks/Week Comments Yes 0 (1 standard drink = 0.6 oz pur e alcohol) rare Sex and Gender Information Value Date Recorded Sex Assigned at Not on file 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) 03/25/2016 03/25/2016 8 7:46 AM TUBE MAKING MACHINE OPERATOR documented as of this encounter Care Teams Analysis Intern Relationship Specialty Start Date End Date Osmani Contreras MD [address] [place] [address] PCP - General Family Practice 12/04/15 documented as of this encounter
--- OUTSIDE RECORDS SUMMARY | 2025-07-23 07:58 | XMS_ITS | Encounter Summary ---
Author Organization [facility] Address [address] [place] [address] Care Team Providers Care Engineering Team Supervisor Name Role Phone Osmani Contreras MD Primary Care Provider [phone] Encounter Details Date Type Department Care Team (Latest Contact Info) Description 08/04/1999 Outpatient Historical [facility] Bharathi Walker MD [address] [facility] [address] [place] [address] Abdominal pain, right upper quadrant (Primary Dx); Abdominal pain, epigastric Social History Tobacco Use Types Packs/Day Years Used Date Smoking Tobacco: Never Assessed Sex and Gender Information Value Date Recorded Sex Assigned at Not on file 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) 03/25/2016 03/25/2016 8 7:46 AM VETERINARY VIRUS SERUM INSPECTOR documented as of this encounter Care Teams Engineering Team Supervisor Relationship Specialty Start Date End Date Osmani Contreras MD [address] [place] [address] PCP - General Family Practice 12/04/15 documented as of this encounter
--- NOTE | 2025-07-23 07:59 | W.ED.WEAKNES ---
HPI - Weakness General: Chief complaint: Weakness Stated complaint: weakness History of Present Illness: 55-year-old male presents just generally being weak. He has a history of end-stage renal disease on dialysis usually is Wednesday he missed last week Wednesday. He denies any fever sweats chills dysuria urgency or frequency. He does still make some urine no cough or shortness of breath no abdominal pain Associated symptoms: Denies chest pain, chills, dysuria or fever(s) Related Data Home Medications ?Medication ?Instructions ?Recorded ?Confirmed atorvastatin 40 mg tablet 40 mg PO DAILY 11/07/20 07/23/25 tamsulosin 0.4 mg capsule (Flomax) 0.4 mg PO DAILY 11/07/20 07/23/25 aspirin 81 mg tablet,delayed 81 mg PO DAILY 02/03/21 07/23/25 release bumetanide 0.5 mg tablet 0.5 mg PO DAILY 09/20/24 07/23/25 clonidine 0.1 mg/24 hr weekly 1 patch transdermal .Weekly 11/16/24 07/23/25 transdermal patch metoprolol tartrate 100 mg tablet 100 mg PO BID 12/25/24 07/23/25 nifedipine 60 mg tablet,extended 60 mg PO DAILY 12/25/24 07/23/25 release 24 hr terazosin 5 mg capsule 5 mg PO DAILY 12/25/24 07/23/25 megestrol 400 mg/10 mL (40 mg/mL) 10 mg PO BID 02/20/25 07/23/25 oral suspension hydralazine 100 mg tablet 100 mg PO BID 04/12/25 07/23/25 brexpiprazole 2 mg tablet (Rexulti) 2 mg PO DAILY 07/23/25 07/23/25 cyclobenzaprine 10 mg tablet 10 mg PO TID PRN Muscle Spasm 07/23/25 07/23/25 famotidine 20 mg tablet 20 mg PO DAILY 07/23/25 07/23/25 hydroxyzine HCl 50 mg tablet 50 mg PO QID PRN Anxiety 07/23/25 07/23/25 ropinirole 0.5 mg tablet 0.5 mg PO BEDTIME 07/23/25 07/23/25 sevelamer carbonate 800 mg tablet 800 mg PO TID 07/23/25 07/23/25 vitamin B complex-vitamin C-folic 1 tab PO DAILY 07/23/25 07/23/25 acid 0.8 mg tablet (Ana-Yue) Previous Rx's ?Medication ?Instructions ?Recorded duloxetine 60 mg capsule,delayed 120 mg (2 x 60 mg) PO DAILY #60 11/16/24 release caps sertraline 100 mg tablet (Zoloft) 200 mg (2 x 100 mg) PO DAILY #60 11/16/24 tabs trazodone 100 mg tablet 400 mg (4 x 100 mg) PO .HS PRN 11/16/24 insomnia #120 tabs Hinged Knee Brace #1 ea 01/02/25 bupropion HCl 300 mg 24 hr tablet, 300 mg PO QAM #30 tabs 03/20/25 extended release (Wellbutrin XL) pantoprazole 40 mg tablet,delayed 40 mg PO BID POST GASTRIC SLEEVE 04/05/25 release (Protonix) 30 days #60 tabs clopidogrel 75 mg tablet (Plavix) 75 mg PO DAILY 90 days #90 tabs 04/13/25 nitroglycerin 0.4 mg sublingual 0.4 mg sublingual Q5M PRN Chest 04/18/25 tablet Pain #20 tabs isosorbide mononitrate 30 mg 30 mg PO BIDWM #180 tabs 04/25/25 tablet,extended release 24 hr losartan 100 mg tablet 100 mg PO DAILY #90 tabs 05/10/25 Allergies Allergy/AdvReac Type Severity Reaction Status Date / Time diphenhydramine (From Allergy Unknown Unknown Verified 06/06/25 15:27 Benadryl) ertapenem (From Invanz) Allergy Unknown Unknown Verified 06/06/25 15:27 Review of Systems Const: Denies: fever(s) or chills Card: Denies: chest pain Resp: Denies: dyspnea GI: Denies: abdominal pain : Denies: dysuria, urinary frequency or urinary urgency Musc: Denies: neck pain or back pain Skin/Breast: Denies: rash PFSH ED PFSH: Medical History Peripheral neuropathy Generalized anxiety disorder Major depressive disorder, 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 Diabetes mellitus Hypertension Psychiatric care GERD (gastroesophageal reflux disease) Chronic kidney disease Hypertension Hyperlipidemia Diabetes Morbid obesity Bereavement Chronic major depressive disorder Colon polyp Encounter for screening colonoscopy Surgical History History of colonoscopy with polypectomy History of tonsillectomy History of foot surgery History of shoulder surgery Family History Denies family history of Anesthesia complication Bleeding disorder Social History Smoking and tobacco/nicotine status: former use of tobacco/nicotine Quit status (tobacco/nicotine): has tried quititng Number of times tried to quit tobacco: 3 Second hand smoke exposure: Yes (Occ.) Alcohol intake: current Alcohol intake frequency: holidays/special occasions only Alcohol type: beer Substance/Drug Use: current Substance/Drug use frequency: few times a week Other substance/drug use details: A few times a week. Physical Exam Const: GENERAL APPEARANCE: cooperative ORIENTATION/CONSCIOUSNESS: Yes awake, Yes oriented to person, Yes oriented to place and Yes oriented to time HENMT: COMMON NORMALS: normocephalic, atraumatic and hearing grossly normal bilaterally HEAD & SCALP: normocephalic and atraumatic Resp: COMMON NORMALS: normal respiratory effort, No retractions, No use of accessory muscles and clear to auscultation bilaterally AUSCULTATION: clear to auscultation bilaterally Cardio: COMMON NORMALS: regular rate, regular rhythm and No murmurs present (Cardio) RATE: regular rate RHYTHM: regular rhythm GI: COMMON NORMALS: Soft to palpation and No hepatosplenomegaly present AUSCULTATION: Yes normoactive bowel sounds PALPATION: Yes Soft to palpation, No Tenderness to palpation present (GI), No Guarding due to palpation present (GI) and Yes No hepatosplenomegaly present Extremity: COMMON NORMALS: normal to inspection, capillary refill normal, no clubbing, cyanosis or edema, no calf tenderness and no pedal edema Neuro: SENSORIUM/ORIENTATION: Yes oriented to person, Yes oriented to place and Yes oriented to time Skin: COMMON NORMALS: no rashes or lesions noted GENERAL SKIN EXAM: no rashes or lesions noted Course Vital Signs: Vital signs: Vital Signs Temperature 97.7 F 07/23/25 07:43 Pulse Rate 68 07/23/25 10:17 Respiratory Rate 16 07/23/25 10:17 Blood Pressure 152/88 07/23/25 10:17 Pulse Oximetry 93 07/23/25 10:17 Oxygen Delivery Me thod Room Air 07/23/25 09:04 MDM - Weakness Medical Decision Making Laboratory test unremarkable his creatinine is significantly elevated as would be expected. His potassium though is not significantly elevated the rest of his electrolytes while slightly abnormal are not out of the range of expected given his his known underlying medical diagnosis. We contacted the clinic where he usually receives outpatient dialysis they do have a chair available for him today and be discharged home and should go to the dialysis clinic for his regular run today. Medical Records I reviewed the patient's medical records. Lab Data I reviewed the patient's lab results. 07/23/25 07:57 07/23/25 07:57 Radiology Impressions Chest X-Ray 07/23/25 07:52 IMPRESSION: Chest appears stable without acute abnormality as above. Laboratory Results WBC 5.45 10^3/uL (3.29-11.43) 07/23/25 07:57 RBC 3.95 10^6/uL (3.85-5.65) 07/23/25 07:57 Hgb 10.10 g/dL (11.27-16.99) L 07/23/25 07:57 Hct 31.8 % (37-53) L 07/23/25 07:57 MCV 80.5 fl (82-101) L 07/23/25 07:57 MCH 25.6 pg (27-33) L 07/23/25 07:57 MCHC 31.8 g/dL (30-55) 07/23/25 07:57 RDW 16.5 % (12.1-15.1) H 07/23/25 07:57 Plt Count 126 10^3/cmm (157-399) L 07/23/25 07:57 MPV 9.2 fL (7.4-10.4) 07/23/25 07:57 Neut % (Auto) 77.4 % 07/23/25 07:57 Lymph % (Auto) 13.2 % 07/23/25 07:57 Keith % (Auto) 5.7 % 07/23/25 07:57 Eos % (Auto) 2.2 % 07/23/25 07:57 Baso % (Auto) 0.9 % 07/23/25 07:57 Neut # (Auto) 4.22 10^3/uL (1.8-7.7) 07/23/25 07:57 Lymph # (Auto) 0.7 10^3/uL (0.8-4.8) L 07/23/25 07:57 Keith # (Auto) 0.3 10^3/uL (0.2-0.9) 07/23/25 07:57 Eos # (Auto) 0.1 10^3/uL (0.0-0.8) 07/23/25 07:57 Baso # (Auto) 0.1 10^3/uL (0.0-0.1) 07/23/25 07:57 Nucleated RBC % (auto) 0 % 07/23/25 07:57 Nucleated RBCs # 0.0 /100WBC 07/23/25 07:57 Sodium 132 mmol/L (136-145) L 07/23/25 07:57 Potassium 4.6 mmol/L (3.5-5.1) 07/23/25 07:57 Chloride 95 mmol/L (98-107) L 07/23/25 07:57 Carbon Dioxide 21 mmol/L (22-29) L 07/23/25 07:57 Anion Gap 20.6 (5-19) H 07/23/25 07:57 BUN 42 mg/dL (6-20) H 07/23/25 07:57 Creatinine 8.2 mg/dL (0.7-1.2) H* 07/23/25 07:57 GFR Calculation 6.8 mL/min (90-130) L 07/23/25 07:57 Glucose 133 mg/dL (65-115) H 07/23/25 07:57 Calculated Osmolality 286 mOsm/kg (285-295) 07/23/25 07:57 Lactic Acid 1.0 mmol/L (0.5-2.2) 07/23/25 08:21 Calcium 8.9 mg/dL (8.5-10.5) 07/23/25 07:57 Total Bilirubin 0.4 mg/dL (0.15-1.2) 07/23/25 07:57 AST 8 U/L (0-40) 07/23/25 07:57 ALT 6 U/L (0-41) 07/23/25 07:57 Alkaline Phosphatase 82 U/L (40-130) 07/23/25 07:57 Total Protein 6.3 g/dL (6.6-8.7) L 07/23/25 07:57 Albumin 4.2 g/dL (3.5-5.2) 07/23/25 07:57 Globulin 2.1 g/dL (1.3-4.6) 07/23/25 07:57 Urine Color Yellow (Yellow) 07/23/25 09:01 Urine Appearance Clear (CLEAR) 07/23/25 09:01 Urine pH 7 (5-7) 07/23/25 09:01 Ur Specific Pep 1.010 (1.005-1.030) 07/23/25 09:01 Urine Protein 3+ (Negative) H 07/23/25 09:01 Urine Glucose (UA) 1+ (Normal) H 07/23/25 09:01 Urine Ketones Negative (Negative) 07/23/25 09:01 Urine Blood 2+ (Negative) H 07/23/25 09:01 Urine Nitrate Negative (Negative) 07/23/25 09:01 Urine Bilirubin Neg (Negative) 07/23/25 09:01 Urine Urobilinogen Neg mg/dL (Negative) 07/23/25 09:01 Ur Leukocyte Esterase Negative (Negative) 07/23/25 09:01 Urine RBC 0-4 /hpf (0-2) H 07/23/25 09:01 Urine WBC 0-4 /hpf (0-5) H 07/23/25 09:01 Ur Squamous Epith Cells 0-4 /hpf (0-5) H 07/23/25 09:01 Amorphous Sediment Not Reportable 07/23/25 09:01 Urine Bacteria None /hpf (NONE) 07/23/25 09:01 All radiology interpretation(s) finalized by discharge EKG Data EKG 1: I personally reviewed and interpreted this EKG as follows: EKG interpretation date: 07/23/25 Prior EKG tracings: available for review Interpretation: EKG 07/23/2025 7:50 AM normal sinus rhythm Q waves noted in V1 and [address] changes noted rate of 64 MO interval 209 QTc 455. Compared to EKG 05/24/2025. No significant changes. Discharge Plan Discharge Patient Disposition: Home Clinical Impression: ESRD (end stage renal disease) on dialysis, Morbid obesity with BMI of 40.0-44.9, adult Condition: Stable Prescriptions: No Action atorvastatin 40 mg tablet 40 mg PO DAILY tamsulosin [Flomax] 0.4 mg capsule 0.4 mg PO DAILY bumetanide 0.5 mg tablet 0.5 mg PO DAILY Rx Instructions: On non-dialysis days. megestrol 400 mg/10 mL (40 mg/mL) suspension 10 mg PO BID (DME) Hinged Knee Brace See Rx Instructions .Route .MEDSUPPLY Qty: 1 0RF Rx Instructions: As directed isosorbide mononitrate 30 mg tablet extended release 24 hr 30 mg PO BIDWM Qty: 180 0RF duloxetine 60 mg capsule,delayed release(DR/EC) 120 mg PO DAILY Qty: 60 11RF sertraline [Zoloft] 100 mg tablet 200 mg PO DAILY Qty: 60 11RF trazodone 100 mg tablet 400 mg PO .HS PRN (Reason: insomnia) Qty: 120 11RF clonidine 0.1 mg/24 hr patch weekly 1 patch transdermal .Weekly bupropion HCl [Wellbutrin XL] 300 mg tablet extended release 24 hr 300 mg PO QAM Qty: 30 11RF pantoprazole [Protonix] 40 mg tablet,delayed release (DR/EC) 40 mg PO BID 30 Days Qty: 60 3RF clopidogrel [Plavix] 75 mg tablet 75 mg PO DAILY 90 Days Qty: 90 3RF losartan 100 mg tablet 100 mg PO DAILY Qty: 90 3RF aspirin 81 mg Tablet,Delayed Release (Dr/Ec) 81 mg PO DAILY hydralazine 100 mg tablet 100 mg PO BID nitroglycerin 0.4 mg Tablet, Sublingual 0.4 mg sublingual Q5M PRN (Reason: Chest Pain) Qty: 20 0RF terazosin 5 mg capsule 5 mg PO DAILY metoprolol tartrate 100 mg tablet 100 mg PO BID nifedipine 60 mg tablet extended release 24hr 60 mg PO DAILY ropinirole 0.5 mg tablet 0.5 mg PO BEDTIME cyclobenzaprine 10 mg tablet 10 mg PO TID PRN (Reason: Muscle Spasm) hydroxyzine HCl 50 mg tablet 50 mg PO QID PRN (Reason: Anxiety) famotidine 20 mg tablet 20 mg PO DAILY Ana-Yue 0.8 mg tablet 1 tab PO DAILY sevelamer carbonate 800 mg tablet 800 mg PO TID Rexulti 2 mg tablet 2 mg PO DAILY Discharge Orders: Discharge ED (Routine); Ordered 07/23/25 Ordered By: Leandro Almaraz Referrals: Funmilayo Horne FNP [Primary Care Provider, Nurse Practitioner] Discharge Diet: Usual diet Discharge Activity: Resume usual activity Patient Instructions: Opioid Safety, Pain Management, Patient Portal & Tirso Instructions Activity Restrictions/Additional Instructions: [facility] [place]. It is very important that you follow up as instructed or that you return to the Emergency Department should you have concerns or if your condition changes or worsens in any way. Emergency department visits are focused on emergent conditions, in some cases you may require further evaluation on an outpatient basis. You were seen in the emergency room with complaints of generalized weakness your laboratory test did not show anything that appeared clinically acute or emergent. Your creatinine is 8.2 this reflects your need for dialysis which is scheduled today and is higher than you typically run it because you had missed dialysis last week. Your potassium was in the normal today. We have contacted the dialysis clinic they are able to do a dialysis run for you today at noon. (Please note that included in your discharge packet is information concerning opioid safety and pain management. This information is given to all patients were discharged from the ER regardless of their discharge diagnosis or the medicines they usually take or are prescribed.) Print Language: Polish Coding Level of Care Code ED Licensed Staff Mft for Betito Jung
--- OUTSIDE RECORDS SUMMARY | 2025-07-23 07:59 | XMS_ITS | Encounter Summary ---
Author Organization [facility] Address 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 Gender Identity Not on file Sexual Orientation Not on file documented as of this encounter Plan of Treatment Upcoming Encounters Date Type Department Care Team (Late st Contact Info) Description 08/09/2025 12:50 PM CDT Office Visit [facility] [place] [address] [place] [address] Carol Morales MD [address] [place] [address] documented as of this encounter Visit Diagnoses Not on filedocumented in this encounter Care Teams Machine Rebuilder Relationship Specialty Start Date End Date Osmani Contreras MD [address] [place] [address] PCP - General Family Practice 12/04/15 documented as of this encounter
--- OUTSIDE RECORDS SUMMARY | 2025-07-23 07:59 | XMS_ITS | Encounter Summary ---
Author Organization [facility] Address [address] [place] [address] Care Team Providers Care Senior It Specialist Name Role Phone Osmani Contreras MD Primary Care Provider [phone] Encounter Details Date Type Department Care Team (Late st Contact Info) Description 01/11/2012 Ancillary Orders [facility] [place] [address] [place] [address] DM (diabetes mellitus) ([facility]) Social History Tobacco Use Types Packs/Day Years Used Date Smoking Tobacco: Never Assessed Sex and Gender Information Value Date Recorded Sex Assigned at Not on file 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 AVG GLUCOSE, A1C 355 mg/dL 01/12/2012 1:01 AM CDT [facility] Blood specimen (specimen) 01/11/2012 10:05 PM CDT 01/11/2012 11:13 PM CDT us Osmani Contreras MD CHEMISTRY ORDERABLES Final Resu lt [facility] CLIA # [id number] [address] [facility] [address] [place] [address] documented in this encounter Visit Diagnoses Diagnosis DM (diabetes mellitus) Type II or unspecified type diabetes mellitus without mention of complication, not stated as uncontrolled documented in this encounter Additional Health Concerns Infection Onset Date Last Indicated Resolved Time C Diff Comment:Resolved 09/08/2018, Infection Prevention 03/11/16 ([facility]) 03/25/2016 03/25/2016 8 7:46 AM PRODUCT SUPPORT ANALYST documented as of this encounter Care Teams Senior It Specialist Relationship Specialty Start Date End Date Osmani Contreras MD [address] [place] [address] PCP - General Family Practice 12/04/15 documented as of this encounter
--- OUTSIDE RECORDS SUMMARY | 2025-07-23 07:59 | XMS_ITS | Encounter Summary ---
Author Organization [facility] Address [address] [place] [address] Care Team Providers Care Store Sales Leader Name Role Phone Osmani Contreras MD Primary Care Provider Encounter Details Date Type Department Care Team (Late st Contact Info) Description 07/08/2004 Outpatient Historical [facility] [address] [place] [id number] Ger Fabian MD [address] [place] [address] Social History Tobacco Use Types Packs/Day Years Used Date Smoking Tobacco: Never Assessed Sex and Gender Information Value Date Recorded Sex Assigned at Not on file 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 Male 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 DOGGER Gender Identity Not on file Sexual Orientation Not on file documented as of this encounter Plan of Treatment Not on file documented as of this encounter Visit Diagnoses Not on filedocumented in this encounter Additional Health Concerns Infection Onset Date Last Indicated Resolved Time C Diff Comment:Resolved 09/08/2018, Infection Prevention 03/11/16 ([facility]) 03/25/2016 03/25/2016 8 7:46 AM DOGGER documented as of this encounter Care Teams Store Sales Leader Relationship Specialty Start Date End Date Osmani Contreras MD [address] [place] [address] PCP - General Family Practice 12/04/15 documented as of this encounter
--- OUTSIDE RECORDS SUMMARY | 2025-07-23 07:59 | XMS_ITS | Encounter Summary ---
Author Organization [facility] Address [address] [facility] [place] [address] Phone Care Team Providers Care Sight Mounter Name Role Phone Unavailable Primary Care Provider Unavailabl e Reason for Visit * Reason Comments Med Refill Encounter Details Date Type Department Care Team (Late st Contact Info) Description 06/27/2025 Refill [facility] [address] [place] [address] Shannon Cochran MD [address] [facility] [address] [facility] [address] [place] [address] Social History Tobacco Use Types [...] Priority Date/Time Associated Diagnosis Comments HEMATOLOGY Routine 06/27/2025 CHEMISTRY Routine 06/27/2025 documented in this encounter Results * (ABNORMAL) HEMATOLOGY (06/27/2025) Hemoglobin 10.4(L) 14.0 - 18.0 g/dL [facility] Hemoglobin x 3 31.2(L) 42.0 - 54.0 % [facility] Reticulocyte Hemoglobin 28.4 25.4 - 31.8 pg [facility] 06/27/2025 06/28/2025 2:0 1 PM CDT Narrative [facility] - 06/28/2025 Unless otherwise specified, test(s) performed at: [facility], [address] [place] [id number] TRIAL MANAGER: Dar Kang M.D. For any questions, please call customer service at FREQUENCY:OTHER Resulting Agency Comment Specimen source: Blood us hSannon Cochran MD LAB BLOOD ORDERABLES Final Re sult Performing Organization Address [facility] Co de Phone Number [facility] See order comments or contact performing lab Unknown, [place] * (ABNORMAL) [facility] (06/27/2025) Creatinine 5.64(H) 0.60 - 1.30 mg/dL [facility] Chloride 99 96 - 108 mEq/L [facility] Bicarbonate (CO2) 26 22 - 29 mEq/L [facility] 06/27/2025 06/28/2025 11: 09 AM CDT Narrative [facility] - 06/28/2025 Unless otherwise specified, test(s) performed at: [facility], [address] [place] [id number] TRIAL MANAGER: Dar Kang M.D. For any questions, please call customer service at FREQUENCY:OTHER Resulting Agency Comment Specimen source: Serum us Shannon Cochran MD LAB BLOOD ORDERABLES Final Re sult Performing Organization Address [facility] Co de Phone Number [facility] See order comments or contact performing lab Unknown, [place] documented in this encounter Visit Diagnoses Not on filedocumented in this encounter
--- OUTSIDE RECORDS SUMMARY | 2025-07-23 07:59 | XMS_ITS | Encounter Summary ---
Author Organization [facility], [facility] Address [address] [place] [address] Phone Care Team Providers Care Strawhat Blocking Operator Name Role Phone Unavailable Primary Care Provider Unavailabl e Reason for Visit * Reason Comments Med Refill Encounter Details Date Type Department Care Team (Late st Contact Info) Description 07/17/2024 Refill [place], [facility] [address] [place] [address] Shannon Cochran MD [address] [place] [address] Social History Tobacco Use Types [...] Urea Reduction 69 65 - 80 % [facility] 08/16/2024 08/18/2024 9:1 6 AM PROPOSAL ENGINEER Narrative Resulting Agency Comment Specimen source: Plasma Shannon Cochran MD LAB BLOOD ORDERABLES Final Re sult tibdit See order comments or contact performing lab Unknown, [place] * POST CHEMISTRY (08/16/2024) BUN Post Dialysis 10 6 - 19 mg/dL [facility] 08/16/2024 08/18/2024 9:1 6 AM PROPOSAL ENGINEER Narrative [facility] - 08/18/2024 Unless otherwise specified, test(s) performed at: [facility], [address] [place] [address] INSPECTOR SOLDERING: Dar Kang M.D. For any questions, please call customer service at FREQUENCY:MONTHLY Resulting Agency Comment Specimen source: Plasma us Shannon Cochran MD LAB BLOOD ORDERABLES Final Re sult Performing Organization Address City/[facility]/ZIP Co de Phone Number [facility] See order comments or contact performing lab Unknown, [place] * IMMUNO CHEMISTRY (08/16/2024) Pathologist [facility] Hep B Surface Ag Negative Negative [facility] 08/16/2024 08/17/2024 1:3 9 PM PROPOSAL ENGINEER Narrative Resulting Agency Comment Specimen source: Serum us Shannon Cochran MD LAB BLOOD ORDERABLES Final Re sult Performing Organization Address [facility] Co de Phone Number [facility] See order comments or contact performing lab Unknown, [place] * (ABNORMAL) [facility] Chemistry (08/16/2024) [facility] BUN 32(H) 6 - 19 mg/dL [facility] [...] [facility] 08/16/2024 08/17/2024 1:3 9 PM PROPOSAL ENGINEER Narrative [facility] - 08/17/2024 Unless otherwise specified, test(s) performed at: [facility], [address] [place], [place] [id number] INSPECTOR SOLDERING: Dar Kang M.D. For any questions, please call customer service at FREQUENCY:MONTHLY Resulting Agency Comment Specimen source: Serum Shannon Cochran MD LAB BLOOD ORDERABLES Final Re sult [facility] See order comments or contact performing lab [...] [facility] 08/16/2024 08/17/2024 1:4 4 PM PROPOSAL ENGINEER Narrative [facility] - 08/17/2024 Unless otherwise specified, test(s) performed at: [facility], [address] [place] [address] INSPECTOR SOLDERING: Dar Kang M.D. For any questions, please call customer service at FREQUENCY:MONTHLY Resulting Agency Comment Specimen source: Blood us Shannon Cochran MD LAB BLOOD ORDERABLES Final Re sult Performing Organization Address [facility] Co de Phone Number [facility] See order comments or contact performing lab Unknown, [place] * (ABNORMAL) [facility] Chemistry (08/08/2024) BUN 19 6 - 19 mg/dL [facility] Creatinine 3.31(H) 0.60 - 1.30 mg/dL [facility] BUN/Creatinine Ratio 5.7(L) 10.0 - 20.0 [facility] 08/08/2024 08/09/2024 9:5 2 AM CDT Narrative APS [facility] - 08/09/2024 Unless otherwise specified, test(s) performed at: [facility], [address] [place] [address] INSPECTOR SOLDERING: Dar Kang M.D. For any questions, please call customer service at FREQUENCY:OTHER Resulting Agency Comment Specimen source: Serum us Shannon Cochran MD LAB BLOOD ORDERABLES Final Re sult Performing Organization Address [facility] Co de Phone Number [facility]PS [facility] See order comments or contact performing lab Unknown, [place] * (ABNORMAL) HEMATOLOGY (08/08/2024) Hemoglobin 9.4(L) 14.0 - 18.0 g/dL [facility] Hemoglobin x 3 28.2(L) 42.0 - 54.0 % [facility] 08/08/2024 08/09/2024 9:4 7 AM CDT Narrative APS [facility] - 08/09/2024 Unless otherwise specified, test(s) performed at: [facility] [address] INSPECTOR SOLDERING: Dar Kang M.D. For any questions, please call customer service at FREQUENCY:OTHER Resulting Agency Comment Specimen source: Blood us Shannon Cochran MD LAB BLOOD ORDERABLES Final Re sult Performing Organization Address [facility] de Phone Number [facility] See order comments or contact performing lab Unknown, [place] * (ABNORMAL) HEMATOLOGY (08/02/2024) [facility] Hemoglobin 9.2(L) 14.0 - 18.0 g/dL [facility] Hemoglobin x 3 27.6(L) 42.0 - 54.0 % [facility] 08/02/2024 08/03/2024 11: 25 AM CDT Narrative [facility] - 08/03/2024 Unless otherwise specified, test(s) performed at: [facility] [address] INSPECTOR SOLDERING: Dar Kang M.D. For any questions, please call customer service at FREQUENCY:OTHER Resulting Agency Comment Specimen source: Blood us Shannon Cochran MD LAB BLOOD ORDERABLES Final Re sult Performing Organization Address [facility] de Phone Number [facility] See order comments or contact performing lab Unknown, [place] * IMMUNO CHEMISTRY (08/02/2024) [facility] Hepatitis C Antibody Nonreactive Nonreactive [facility] Comment: No HCV antibody detected. The above [...] ORDERABLES Final Re sult Performing Organization Address [facility] de Phone Number [facility] See order comments or contact [...] 08/03/2024 Unless otherwise specified, test(s) performed at: [facility], [address] [place] [address] INSPECTOR SOLDERING: Dar Kang M.D. For any questions, please call customer service at FREQUENCY:OTHER Resulting Agency Comment Specimen source: Serum us Shannon Cochran MD LAB BLOOD ORDERABLES Final Re sul Performing Organization Address [facility] Co de Phone Number [facility] See order comments or contact [...] 07/31/2024 08/01/2024 10: 11 AM CDT Narrative [facility] - 08/01/2024 Unless otherwise specified, test(s) performed at: [facility], [address] [place], [place] [phone] INSPECTOR SOLDERING: Dar Kang M.D. For any questions, please call customer service at FREQUENCY:OTHER Resulting Agency Comment Specimen source: Urine Shannon Cochran MD LAB URINE ORDERABLES Final Re sult Performing Organization Address City/[facility] Co de Phone Number [facility] See order comments or contact performing lab Unknown, [place] * (ABNORMAL) [facility] Chemistry (07/31/2024) BUN 24(H) 6 - 19 [...] 07/31/2024 08/01/2024 9:2 0 AM CDT Narrative [facility] - 08/01/2024 Unless otherwise specified, test(s) performed at: [facility], [address] [place] [address] INSPECTOR SOLDERING: Dar Kang M.D. For any questions, please call customer service at FREQUENCY:OTHER Resulting Agency Comment Specimen source: Serum us Shannon Cochran MD LAB BLOOD ORDERABLES Final Re sult Performing Organization Address City/[facility]/ZIP Co de Phone Number [facility] See order comments or contact performing lab Unknown, [place] * (ABNORMAL) [facility] Chemistry (07/31/2024) [facility] PTH 391(H) 16 - 80 pg/mL [facility] 07/31/2024 08/01/2024 10: 24 AM CDT Narrative [facility] - 08/01/2024 Unless otherwise specified, test(s) performed at: [facility], [address] [place] [address] INSPECTOR SOLDERING: Dar Kang M.D. For any questions, please call customer service at FREQUENCY:OTHER Resulting Agency Comment Specimen source: Plasma Shannon Cochran MD LAB BLOOD ORDERABLES Final Re sult Performing Organization Address [facility] Co de Phone Number [facility] See order comments or contact performing lab Unknown, [place] * PATIENT INFORMATION (07/31/2024) [facility] Patient BSA 2.65 sq. M. [facility] Comment: Normalized values are calculated using the patient's actual BSA and normalized to the average BSA of 1.73m2. 07/31/2024 08/01/2024 9:2 0 AM CDT Narrative [facility] - 08/01/2024 Unless otherwise specified, test(s) performed at: [facility] [address] INSPECTOR SOLDERING: Dar Kang M.D. For any questions, please call customer service at FREQUENCY:OTHER Resulting Agency Comment Specimen source: PD Fluid us Shannon Cochran MD LAB BLOOD ORDERABLES Final Re sult Performing Organization Address City/[facility]/ZIP Co de Phone Number [facility] See order comments or contact performing lab Unknown, [place] * PATIENT INFORMATION (07/31/2024) [facility] Patient Weight 127.3 [facility] Patient Height 203.0 [facility] Amputee Status NO [facility] Amputee Parts NONE [facility] Urine Volume 1,700 [facility] Collection Interval, Ur 24.0 [facility] 07/31/2024 07/31/2024 Narrative APS [facility] - 08/01/2024 Unless otherwise specified, test(s) performed at: [facility], [address] [place] [address] INSPECTOR SOLDERING: Dar Kang M.D. For any questions, please [...] 07/27/2024 Unless otherwise specified, test(s) performed at: [facility], [address] [place] [address] INSPECTOR SOLDERING: Dar Kang M.D. For any questions, please [...] 07/26/2024 07/27/2024 8:5 6 AM CDT Narrative [facility] - 07/27/2024 Unless otherwise specified, test(s) performed at: [facility], [address] [place] [address] INSPECTOR SOLDERING: Dar Kang M.D. For any questions, please [...] 07/19/2024 07/20/2024 10: 58 AM CDT Narrative [facility] - 07/20/2024 Unless otherwise specified, test(s) performed at: [facility] [address] INSPECTOR SOLDERING: Dar Kang M.D. For any questions, please call customer service at FREQUENCY:MONTHLY Resulting Agency Comment Specimen source: Serum Shannon Cochran MD LAB BLOOD ORDERABLES Final Re sult Performing Organization Address [facility] de Phone Number [facility] See order comments or contact performing lab Unknown, [place] * TRACE ELEMENTS (07/19/2024) Pathologist [facility] Aluminum <5 0 - 10 mcg/L [facility] Comment: This test was developed and its performance characteristics determined by [facility]. It has not been cleared or approved by the FDA. The laboratory is regulated under CLIA as qualified to perform high complexity testing. This test is used for clinical purposes. It should not be regarded as investigational or for research. 07/19/2024 07/20/2024 10: 49 AM CDT Narrative [facility] - 07/20/2024 Unless otherwise specified, test(s) performed at: [facility], [address] [place] [id number] INSPECTOR SOLDERING: Dar Kang M.D. For any questions, please call customer service at FREQUENCY:MONTHLY Resulting Agency Comment Specimen source: Serum Shannon Cochran MD LAB BLOOD ORDERABLES Final Re [facility] Performing Organization Address [facility] de Phone Number [facility] See order comments or contact [...] 07/19/2024 07/20/2024 11: 32 AM CDT Narrative [facility] - 07/20/2024 Unless otherwise specified, test(s) performed at: [facility], [address] [place] [address] INSPECTOR SOLDERING: Dar Kang M.D. For any questions, please call customer service at FREQUENCY:MONTHLY Resulting Agency Comment Specimen source: Blood us Shannon Cochran MD LAB BLOOD ORDERABLES Final Re sult [facility] See order comments or contact performing lab [facility], [place] * IMMUNO CHEMISTRY (07/17/2024) Hepatitis B Surface Ab <10 mIU/mL [facility] Comment: Reference Range: <10 mIU/mL Non-Immune >=10 mIU/mL Immune The magnitude of the measured result above 10 mIU/mL is not indicative of the total amount of antibody present. Custom Exception Hep B Core Total Ab Negative Negative [facility] Comment: Hep B Core Ab, Total appears during the acute infection stage and remains reactive/positive throughout the recovery stage. The above test result was obtained using Siemens Centaur XP chemiluminescent method. Results obtained with different assay methods or kits cannot be used interchangeably. Hep B Surface Ag Negative Negative [facility] 07/17/2024 07/18/2024 11: 19 AM CDT Narrative [facility] - 07/18/2024 Unless otherwise specified, test(s) performed at: [facility], [address] [place] [address] INSPECTOR SOLDERING: Dar Kang M.D. For any questions, please call customer service at FREQUENCY:OTHER Resulting Agency Comment Specimen source: Serum us Shannon Cochran MD LAB BLOOD ORDERABLES Edited R esult - Final APS [facility] See order comments or contact performing lab Unknown, [place] documented in this encounter Visit Diagnoses Not on filedocumented in this encounter
--- OUTSIDE RECORDS SUMMARY | 2025-07-23 07:59 | XMS_ITS | Encounter Summary ---
Author Organization [facility] Address [address] [place] [address] Care Team Providers Care Ichthyology Teacher Name Role Phone Osmani Contreras MD Primary Care Provider Encounter Details Date Type Department Care Team ([facility] st Contact Info) Description 07/25/2004 Outpatient Historical [facility] [address] [place] [phone] Sarwat Naidu MD [address] [place] [phone] Social History Tobacco Use Types Packs/Day Years Used Date Smoking Tobacco: Never Assessed Sex and Gender Information Value Date Recorded Sex Assigned at Not on file Legal Sex Male 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 Gender Identity Not on file Sexual Orientation Not on file documented as of this encounter Plan of Treatment Not on file documented as of this encounter Visit Diagnoses Not on filedocumented in this encounter Additional Health Concerns Infection Onset Date Last Indicated Resolved Time C Diff Comment:Resolved 09/08/2018, Infection Prevention 03/11/16 ([facility]) 03/25/2016 03/25/2016 8 7:46 AM CABLEWAY OPERATOR documented as of this encounter Care Teams Ichthyology Teacher Relationship Specialty Start Date End Date Osmani Contreras MD [address] [place] [address] PCP - General Family Practice 12/04/15 documented as of this encounter
--- OUTSIDE RECORDS SUMMARY | 2025-07-23 07:59 | XMS_ITS | Encounter Summary ---
Author Organization [facility] Address [address] [address] Care Team Providers Care Technical Support Coordinator Name Role Phone Osmani Contreras MD Primary Care Provider [phone] Encounter Details Date Type Department Care Team (Latest Contact Info) Description 09/08/2004 Outpatient Historical [facility] [address] [place] [phone] Sarwat Naidu MD [address] [place] [phone] ABDOMINAL PAIN UNSPEC SITE (Primary Dx); HYPERTENSION NOS Social History Tobacco Use Types Packs/Day Years Used Date Smoking Tobacco: Never Assessed Sex and Gender Information Value Date Recorded Sex Assigned at Not on file Legal Sex Male 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 Gender Identity Not on file Sexual Orientation Not on file documented as of this encounter Plan of Treatment Not on file documented as of this encounter Visit Diagnoses Diagnosis Abdominal pain, unspecified site- Primary Unspecified essential hypertension documented in this encounter Additional Health Concerns Infection Onset Date Last Indicated Resolved Time C Diff Comment:Resolved 09/08/2018, Infection Prevention 03/11/16 ([facility]) 03/25/2016 03/25/2016 8 7:46 AM FIBER TECHNOLOGIST documented as of this encounter Care Teams Technical Support Coordinator Relationship Specialty Start Date End Date Osmani Contreras MD [address] [place] [address] PCP - General Family Practice 12/04/15 documented as of this encounter
--- OUTSIDE RECORDS SUMMARY | 2025-07-23 07:59 | XMS_ITS | Encounter Summary ---
Author Organization [facility] Address [address] [place] [address] Care Team Providers Care Horizontal Drill Operator Name Role Phone Osmani Contreras MD Primary Care Provider [phone] Encounter Details Date Type Department Care Team (Late st Contact Info) Description 01/04/2012 Ancillary Orders [facility] Laboratory Services [place] [address] [place] [address] Sick Social History Tobacco Use Types Packs/Day Years Used Date Smoking Tobacco: Never Assessed Sex and Gender Information Value Date Recorded Sex Assigned at Not on file Legal Sex Male 3:06 AM FORM SETTER Gender Identity Not on file Sexual Orientation [...] growth) Streptococcus salivarius(A) 01/06/2012 6:27 PM CDT [facility] LABORATORY [facility] GRAM STAIN Few Gram positive cocci 01/06/2012 6:27 PM CDT [facility] GRAM STAIN No WBC's observed 012 6:27 PM CDT [facility] Wound drainage 01/04/2012 9: 00 PM CDT 01/04/2012 11:02 PM CDT Narrative [facility]OR[facility] - 01/06/2012 6:27 PM CDT Left great toe. Sensitivity not normally preformed. Chelsey Prince [facility] MICROBIOLOGY - GENERAL ORDE LANE Final Result [facility] [employer] [facility] CLIA # [id number] [address] [place] [address] * (ABNORMAL) CBC WITH DIFFERENTIAL (01/04/2012 9:00 PM CDT) WBC 7.6 4.2 - 9.1 K/uL 01/04/2012 11:09 PM CDT [facility] LABORAT[facility] RBC 5.33 4.63 - 6.08 M/uL 01/04/2012 11:09 PM [facility] [employer] [facility] HEMOGLOBIN 15.3 13.7 - 17.5 g/dL 01/04/2012 11:09 PM [facility] [place] [facility] HEMATOCRIT 42.0 40.1 - 51.0 % 01/04/2012 11:09 PM T [facility] [employer] [facility] MCV 78.8(L) 79.0 - 92.2 fL 01/04/2012 11:09 PM CDT [facility] [place] [facility] MCH 28.7 25.7 - 32.2 pg 01/04/2012 11:09 PM [facility] [place] [facility] MCHC 36.4 32.3 - 36.5 g/dL 01/04/2012 11:09 PM [facility] [place] [facility] RDW 12.8 11.0 - 14.5 % 01/04/2012 11:09 PM CDT [facility] [place] [facility] RDW-STDEV 36.6 fL 01/04/2012 11:09 PM CDT [facility] [place] PLATELETS 265 130 - 400 K/uL 01/04/2012 11:09 PM CDT [facility] [place] MPV 10.6 10.0 - 14.8 fL 01/04/2012 11:09 PM CDT [facility] [place] NEUTROPHILS 49 34 - 68 % 01/04/2012 11:09 PM CDT [facility] [place] LYMPHOCYTES 40 22 - 53 % 01/04/2012 11:09 PM CDT [facility] [place] MONOCYTES 9 5 - 12 % 01/04/2012 11:09 PM CDT [facility] [place] EOSINOPHILS 2 1 - 7 % 01/04/2012 11:09 PM CDT [facility] [place] BASOPHILS 1 0 - 1 % 01/04/2012 11:09 PM CDT [facility] [place] NEUTROPHIL ABSOLUTE 3.72 1.78 - 5.38 K/uL 01/04/2012 11:09 PM CDT [facility] [place] LYMPHOCYTE ABSOLUTE 3.03 1.20 - 3.40 K/uL 01/04/2012 11:09 PM CDT [facility] [place] MONOCYTE ABSOLUTE 0.65 0.30 - 0.82 K/uL 01/04/2012 11:09 PM CDT [facility] [place] EOSINOPHIL ABSOLUTE 0.11 0.04 - 0.54 K/uL 01/04/2012 11:09 PM CDT [facility] [place] BASOPHILS ABSOLUTE 0.04 0.01 - 0.08 K/uL 01/04/2012 11:09 PM CDT [facility] [place] Blood specimen (specimen) 01/04/2012 9:00 PM CDT 01/04/2012 11:02 PM CDT Chelsey Prince PHOTOGRAPHY PROFESSOR HEMATOLOGY ORDERABLES Final Result [facility] [place] CLIA # [id number] [address] [place] [address] * (ABNORMAL) LIPID PANEL (01/04/2012 9:00 PM CDT) CHOLESTEROL 231(H) 130 - 200 mg/dL 01/04/2012 11:32 PM CDT [facility] TRIGLYCERIDE 108 30 - 200 mg/dL 01/04/2012 11:32 PM CDT [facility] HDL 51 35 - 80 mg/dL 01/04/2012 11:32 PM CDT [facility] LDL CALCULATED 158(H) 0 - 100 mg/dL 01/04/2012 11:32 PM T [facility] Blood specimen (specimen) 01/04/2012 9:00 PM CDT 01/04/2012 11:02 PM CDT Narrative [facility] LABORATORY [facility] - 01/04/2012 11:32 PM CDT TOTAL CHOLESTEROL mg/dL Desirable <200 Borderline high 200-239 High >=240 TRIGLYCERIDES mg/dL Normal <150 Borderline high 150-199 High 200-499 Very high >=500 HDL CHOLESTEROL mg/dL Low <40 Normal 40-60 Desirable >60 LDL CHOLESTEROL mg/dL Optimal <100 Low risk 100-129 Borderline high 130-159 High 160-189 Very high >=190 Based on AHA/NCEP Guidelines Chelsey Prince PHOTOGRAPHY PROFESSOR CHEMISTRY ORDERABLES Final Result [facility] CLIA # [id number] [address] [place] [address] * (ABNORMAL) BASIC METABOLIC PANEL (01/04/2012 9:00 PM CDT) SODIUM 134(L) 136 - 145 mmol/L 01/04/2012 11:32 PM T [facility] [place] [facility] POTASSIUM 3.7 3.5 - 5.1 mmol/L 01/04/2012 11:32 PM CDT [facility] LABORATORY [facility] CHLORIDE 97(L) 98 - 107 mmol/L 01/04/2012 11:32 PM T [facility] [place] [facility] CO2 29 21 - 32 mmol/L 01/04/2012 11:32 PM CDT [facility] CALCIUM 9.2 8.5 - 10.1 mg/dL 01/04/2012 11:32 PM T [facility] BUN 19(H) 7 - 18 mg/dL 01/04/2012 11:32 PM CDT [facility] CREATININE 0.90 0.60 - 1.30 mg/dL 01/04/2012 11:32 PM T [facility] GLUCOSE 234(H) 74 - 106 mg/dL 01/04/2012 11:32 PM T [facility] GFR 93 >=60 mL/min/1.7 3 sq meter 01/04/2012 11:32 PM T [facility] GFR, 113 >=60 mL/min/1.7 3 sq meter 01/04/2012 11:32 PM T [facility] Blood specimen (specimen) 01/04/2012 9:00 PM CDT 01/04/2012 11:02 PM CDT Narrative [facility] - 01/04/2012 11:32 PM CDT eGFR has [...] patients with severe liver disease. Chelsey Prince PHOTOGRAPHY PROFESSOR CHEMISTRY ORDERABLES Final Result Performing Organization Address City/State/[facility] Co de Phone Number [facility] [id number] [address] [place] [address] documented in this encounter Visit Diagnoses Diagnosis Sick Other unknown and unspecified cause of morbidity or mortality documented in this encounter Additional Health Concerns Infection Onset Date Last Indicated Resolved Time C Diff Comment:Resolved 09/08/2018, Infection Prevention 03/11/16 ([facility]) 03/25/2016 03/25/2016 8 7:46 AM FORM SETTER documented as of this encounter Care Teams Horizontal Drill Operator Relationship Specialty Start Date End Date Osmani Contreras MD [address] [place] [address] PCP - General Family Practice 12/04/15 documented as of this encounter
--- OUTSIDE RECORDS SUMMARY | 2025-07-23 07:59 | XMS_ITS | Encounter Summary ---
Author Organization [facility] Address [address] [facility] [place] [address] Care Team Providers Care Associate Teacher Name Role Phone Osmani Contreras MD Primary Care Provider Encounter Details Date Type Department Care Team (Latest Contact Info) Description 08/15/2004 Outpatient Historical [facility] [address] [place] [phone] Sarwat Naidu MD [address] [place] [address] HYPERTENSION NOS (Primary Dx) Social History Tobacco Use Types Packs/Day Years Used Date Smoking Tobacco: Never Assessed Sex and Gender Information Value Date Recorded Sex Assigned at Not on file Legal Sex Male 3:06 AM PROMOTIONAL REPRESENTATIVE Gender Identity Not on file Sexual Orientation Not on file documented as of this encounter Plan of Treatment Not on file documented as of this encounter Visit Diagnoses Diagnosis Unspecified essential hypertension- Primary documented in this encounter Additional Health Concerns Infection Onset Date Last Indicated Resolved Time C Diff Comment:Resolved 09/08/2018, Infection Prevention 03/11/16 ([facility]) 03/25/2016 03/25/2016 8 7:46 AM PROMOTIONAL REPRESENTATIVE documented as of this encounter Care Teams Associate Teacher Relationship Specialty Start Date End Date Osmani Contreras MD [address] [place] [address] PCP - General Family Practice 12/04/15 documented as of this encounter
--- OUTSIDE RECORDS SUMMARY | 2025-07-23 07:59 | XMS_ITS | Encounter Summary ---
Author Organization [facility] Address [address] [place] [address] Care Team Providers Care Screw Machine Tool Setter Name Role Phone Osmani Contreras MD Primary Care Provider [phone] Encounter Details Date Type Department Care Team (Latest Contact Info) Description 09/16/2004 Outpatient [facility] [address] [facility] [address] [place] [address] Theodore Lugo MD [address] [place] [address] ABDOMINAL PAIN EPIGASTRIC (Primary Dx); HEARTBURN; REFLUX ESOPHAGITIS Social History Tobacco Use Types Packs/Day Years Used Date Smoking Tobacco: Never Assessed Sex and Gender Information Value Date Recorded Sex Assigned at Not on file Legal Sex Male 3:06 AM SUBWAREHOUSE SUPERVISOR Gender Identity Not on file Sexual Orientation Not on file documented as of this encounter Plan of Treatment Not on file documented as of this encounter Visit Diagnoses Diagnosis Abdominal pain, epigastric- Primary Heartburn Reflux esophagitis documented in this encounter Additional Health Concerns Infection Onset Date Last Indicated Resolved Time C Diff Comment:Resolved 09/08/2018, Infection Prevention 03/11/16 ([facility]) 03/25/2016 03/25/2016 8 7:46 AM SUBWAREHOUSE SUPERVISOR documented as of this encounter Care Teams Screw Machine Tool Setter Relationship Specialty Start Date End Date Osmani Contreras MD [address] [place] [address] PCP - General Family Practice 12/04/15 documented as of this encounter
--- OUTSIDE RECORDS SUMMARY | 2025-07-23 07:59 | XMS_ITS | Clinical Summary ---
Author Organization [facility] Address [address] [place] [address] Care Team Providers Care Look Out Tower Fire Watcher Name Role Phone Osmani Contreras MD Primary Care Provider [phone] Allergies Active Allergy Reactions Criticality Noted Date Comments Diphenhydramine Hcl Other (See Comments) 2015 it makes me mean Ertapenem Unknown 09/06/2018 Procaine Unknown 09/06/2018 Medications cpap medical laboratory technicians daily at bedtime. Auto titration CPAP set [...] mcg by inhalation daily. Active OTHER FIELD PARTY MANAGER/GRABBER. 1 Each 0 6 Active diltiazem (CARDIZEM [...] with meals. 15 mL 09/09/2018 7:26 PM MATTRESS AND FOUNDATION SEWER 8 Active ibuprofen (MOTRIN) 600 mg tablet [...] (09/06/2018): Added automatically from request for surgery [id number] Chronic left-sided low back pain without sciatic [...] on file Legal Sex Male 3:06 AM MATTRESS AND FOUNDATION SEWER Gender Identity Not on file Sexual Orientation [...] 07/25/2018, 2014 Medical Devices Implanted Type Area Cattle Alley Worker Device Identifier Shelf Expiration Date Model / Serial / Lot Screw Hex Int Rc Bl 6.4x110 [id number] - [id number] Implanted:Qty: 1 on 03/30/2019 by Colt Garza MD at [facility] Screw Right: Femur [employer] 07/30/2025 [id number] / / [id number] Screw Hex Int Rc Bl 6.4x115 [id number] - [id number] Implanted:Qty: 1 on 03/30/2019 by Colt Garza MD at [facility] Screw Right: Femur [employer] 01/08/2022 [id number] / / [id number] Screw Trgn Lp 5.0x50mm [id number] - [id number] Implanted:Qty: 1 on 03/30/2019 by Colt Garza MD at [facility] Screw Right: Femur [employer] 02/11/2029 [id number] / / [id number] Screw Trgn Lp 5.0x60mm 8975-3570 - [id number] Implanted:Qty: 1 on 03/30/2019 by Colt Garza MD at [facility] Screw Right: Femur [employer] 10/11/2026 [id number] / / [id number] Nail Implanted:Qty: 1 on 03/30/2019 by Colt Garza MD at [facility] Right: Femur [employer] 08/10/2020 [id number] / / [id number] Explanted Type Area Cattle Alley Worker Device Identifier Shelf Expiration Date Model / Serial / Lot Nail Fan Jud Rt [id number] - [id number] Implanted:Qty: 1 on 09/07/2018 by Colt Garza MD at [facility] Explanted:Qty: 1 on 03/30/2019 by Colt Garza MD at [facility] Nail Right: Femur [employer] 10/04/2025 [id number] / / [id number] Description:INV Screw Hex Int Rc Bl 6.4x110 [id number] - [id number] Implanted:Qty: 1 on 09/07/2018 by Colt Garza MD at [facility] Explanted:Qty: 1 on 03/30/2019 by Colt Garza MD at [facility] Screw Right: Femur [employer] 05/19/2027 [id number] / / [id number] Description:INV Screw Hex Int Rc Bl 6.4x115 [id number] - [id number] Implanted:Qty: 1 on 09/07/2018 by Colt Garza MD at [facility] Explanted:Qty: 1 on 03/30/2019 by Colt Garza MD at [facility] Screw Right: Femur [employer] 12/08/2019 [id number] / / [id number] Description:INV Screw Trgn Lp 5.0x52.5mm [id number] - [id number] Implanted:Qty: 1 on 09/07/2018 by Colt Garza MD at [facility] Explanted:Qty: 1 on 03/30/2019 by Colt Garza MD at [facility] Screw Right: Femur [employer] 03/13/2028 [id number] / / [id number] Description:INV Screw Trgn Lp 5.0x47.5mm [id number] - [id number] Implanted:Qty: 1 on 09/07/2018 by Colt Garza MD at [facility] Explanted:Qty: 1 on 03/30/2019 by Colt Garza MD at [facility] Screw Right: Femur [employer] 02/03/2028 [id number] / / [id number] Description:INV Procedures Procedure Name Priority Date/Time Associated [...] 10:06 AM CDT 03/31/2019 10:33 AM CDT [facility] - 03/31/2019 12:05 PM CDT HGB A1C INTERPRETATION NORMAL: <5.7% PRE-DIABETES: 5.7 - 6.4% DIABETES: 6.5% OR GREATER Priya Tomas MD CHEMISTRY ORDERAB LES Final Result [facility] CLIA# [id number] [facility] [place] [address] * (ABNORMAL) LIPID PANEL (01/04/2012 9:00 PM CDT) CHOLESTEROL 231(H) 130 - 200 mg/dL 01/04/2012 11:32 PM CDT [facility] TRIGLYCERIDE 108 30 - 200 mg/dL 01/04/2012 11:32 PM T [facility] HDL 51 35 - 80 mg/dL 01/04/2012 11:32 PM CDT [facility] LDL CALCULATED 158(H) 0 - 100 mg/dL 01/04/2012 11:32 PM CDT [facility] Blood specimen (specimen) 01/04/2012 9:00 PM CDT 01/04/2012 11:02 PM CDT [facility] - 01/04/2012 11:32 PM CDT TOTAL CHOLESTEROL mg/dL Desirable <200 Borderline high 200-239 High >=240 TRIGLYCERIDES mg/dL Normal <150 Borderline high 150-199 High 200-499 Very high >=500 HDL CHOLESTEROL mg/dL Low <40 Normal 40-60 Desirable >60 LDL CHOLESTEROL mg/dL Optimal <100 Low risk 100-129 Borderline high 130-159 High 160-189 Very high >=190 Based on AHA/NCEP Guidelines [facility] POLISHER BALANCE SCREWHEAD CHEMISTRY ORDERABLES Final Result [facility] CLIA # [id number] [address] [facility] [address] [place] [address] from Last 3 Months or Most Recently Relevant to Health Maintenance Insurance [employer] Medicare Part D [employer] PLUS [id number] O Advance Directives For more information, please contact: [phone] * Full Code (Latest Code Status on [...] 12:46 AM 04/05/2016 7:09 PM Care Teams Look Out Tower Fire Watcher Relationship Specialty Start Date End Date Osmani Contreras MD [address] [place] [address] PCP - General Family Practice 12/04/15
--- OUTSIDE RECORDS SUMMARY | 2025-07-23 07:59 | XMS_ITS | Encounter Summary ---
Author Organization [facility] Address [address] [facility] [place] [address] Care Team Providers Care Furniture Maker Name Role Phone Osmani Contreras MD Primary Care Provider [phone] Encounter Details Date Type Department Care Team (Latest Contact Info) Description 07/24/2004 Outpatient Historical [facility] [address] [place] [phone] Sarwat Naidu MD [address] [place] [phone] HYPERTENSION NOS (Primary Dx) Social History Tobacco Use Types Packs/Day Years Used Date Smoking Tobacco: Never Assessed Sex and Gender Information Value Date Recorded Sex Assigned at Not on file 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 ENGINEER Gender Identity Not on file Sexual Orientation Not on file documented as of this encounter Plan of Treatment Not on file documented as of this encounter Visit Diagnoses Diagnosis Unspecified essential hypertension- Primary documented in this encounter Additional Health Concerns Infection Onset Date Last Indicated Resolved Time C Diff Comment:Resolved 09/08/2018, Infection Prevention 03/11/16 ([facility]) 03/25/2016 03/25/2016 8 7:46 AM CYBER ENGINEER documented as of this encounter Care Teams Furniture Maker Relationship Specialty Start Date End Date Osmani Contreras MD [address] [place] [address] PCP - General Family Practice 12/04/15 documented as of this encounter
--- OUTSIDE RECORDS SUMMARY | 2025-07-23 07:59 | XMS_ITS | Encounter Summary ---
Author Organization [facility] Address [address] [facility] [address] [place] [address] Phone Care Team Providers Care Medical Insurance Coder Name Role Phone Unavailable Primary Care Provider Unavailabl e Reason for Visit * Reason Comments Med Refill Encounter Details Date Type Department Care Team (Late st Contact Info) Description 06/29/2025 Refill [facility] [address] [facility] [address] [place] [address] Shannon Cochran MD [address] [facility] [address] [place] [address] Social History Tobacco Use Types [...]
--- OUTSIDE RECORDS SUMMARY | 2025-07-23 07:59 | XMS_ITS | Encounter Summary ---
Author Organization [facility] Address [address] [place] [address] Care Team Providers Care Claim Examiner Name Role Phone Osmani Contreras MD Primary Care Provider [phone] Encounter Details Date Type Department Care Team (Latest Contact Info) Description 09/16/2004 Outpatient Historical [facility] [address] [place] [address] Theodore Lugo MD [address] [place] [address] REFLUX ESOPHAGITIS (Primary Dx) Social History Tobacco Use Types Packs/Day Years Used Date Smoking Tobacco: Never Assessed Sex and Gender Information Value Date Recorded Sex Assigned at Not on file Legal Sex Male 3:06 AM SPUD SORTER Gender Identity Not on file Sexual Orientation Not on file documented as of this encounter Plan of Treatment Not on file documented as of this encounter Visit Diagnoses Diagnosis Reflux esophagitis- Primary documented in this encounter Additional Health Concerns Infection Onset Date Last Indicated Resolved Time C Diff Comment:Resolved 09/08/2018, Infection Prevention 03/11/16 ([facility]) 03/25/2016 03/25/2016 8 7:46 AM SPUD SORTER documented as of this encounter Care Teams Claim Examiner Relationship Specialty Start Date End Date Osmani Contreras MD [address] [place] [address] PCP - General Family Practice 12/04/15 documented as of this encounter
--- OUTSIDE RECORDS SUMMARY | 2025-07-23 07:59 | XMS_ITS | Encounter Summary ---
Author Organization [facility] Address [address] [place] [address] Care Team Providers Care Coffee Taster Name Role Phone Osmani Contreras MD Primary Care Provider [phone] Encounter Details Date Type Department Care Team (Latest Contact Info) Description 07/25/2004 Outpatient Historical [facility] [address] [place] [phone] Sarwat Naidu MD [address] [place] [address] HYPERTENSION NOS (Primary Dx) Social History Tobacco Use Types Packs/Day Years Used Date Smoking Tobacco: Never Assessed Sex and Gender Information Value Date Recorded Sex Assigned at Not on file Legal Sex Male 3:06 AM FREELANCE GRAPHIC DESIGNER Gender Identity Not on file Sexual Orientation Not on file documented as of this encounter Plan of Treatment Not on file documented as of this encounter Visit Diagnoses Diagnosis Unspecified essential hypertension- Primary documented in this encounter Additional Health Concerns Infection Onset Date Last Indicated Resolved Time C Diff Comment:Resolved 09/08/2018, Infection Prevention 03/11/16 ([facility]) 03/25/2016 03/25/2016 8 7:46 AM FREELANCE GRAPHIC DESIGNER documented as of this encounter Care Teams Coffee Taster Relationship Specialty Start Date End Date Osmani Contreras MD [address] [place] [address] PCP - General Family Practice 12/04/15 documented as of this encounter
[2025-07-23 08:03] LABS: Hematocrit 31.8 % (37-53); Hemoglobin 10.10 g/dL (11.27-16.99); Mean Corpuscular HGB Conc 31.8 g/dL (30-55); Mean Corpuscular Hemoglobin 25.6 pg (27-33); Mean Corpuscular Volume 80.5 fl (82-101); Nucleated Red Blood Cells % 0 %; Platelet Count 126 10^3/cmm (157-399); Red Blood Count 3.95 10^6/uL (3.85-5.65); White Blood Count 5.45 10^3/uL (3.29-11.43)
[2025-07-23 08:05] VITALS: BP 157/87; PULSE 67; RESP 16; O2SAT 94
[2025-07-23 08:22] LABS: Alanine Aminotransferase 6 U/L (0-41); Albumin Level 4.2 g/dL (3.5-5.2); Alkaline Phosphatase 82 U/L (40-130); Anion Gap 20.6 (5-19); Aspartate Amino Transferase 8 U/L (0-40); Blood Urea Nitrogen 42 mg/dL (6-20); Calcium 8.9 mg/dL (8.5-10.5); Carbon Dioxide 21 mmol/L (22-29); Chloride 95 mmol/L (98-107); Creatinine Clr Calc Pharmacy 13.8407; Globulin 2.1 g/dL (1.3-4.6); Glucose 133 mg/dL (65-115); Osmolality Calculated 286 mOsm/kg (285-295); Potassium 4.6 mmol/L (3.5-5.1); Sodium 132 mmol/L (136-145); Total Protein 6.3 g/dL (6.6-8.7)
[2025-07-23 08:30] VITALS: BP 157/87; PULSE 67; RESP 16; O2SAT 94
--- NOTE | 2025-07-23 08:42 | ECG_ITS ---
[facility] [employer] Test Date: 2025-07-23 Pat Name: Abimael Cochran Department: Room: Gender: Male Roll Tender: : 1970 Requested By: Leandro Jones Order Number: [id number] Benjamin MD: Modesto Monroy M.D. Measurements Intervals Evans Rate: 64 P: 41 NE: 209 QRS: -19 QRSD: 116 T: 30 QT: 439 QTc: 455 Interpretive Statements SINUS RHYTHM POSSIBLE OLD INFERIOR INFARCTION NONSPECIFIC T WAVE FLATTENING SEPTAL MYOCARDIAL INFARCTION , OF INDETERMINATE AGE [40+ ms Q WAVE IN V1/V2] Compared to ECG 05/24/2025 17:18:29 SEPTAL AND INFERIOR Q WAVES CONSISTENT WITH NONACUTE INFARCTIONS ARE NEW Electronically Signed On 07-25-2025 21:43:38 CDT by Modesto Monroy M.D. [email or web address]
[2025-07-23 08:48] LABS: Lactic Sepsis W/Reflex 1.0 mmol/L (0.5-2.2)
[2025-07-23 09:04] VITALS: BP 168/103; PULSE 64; RESP 16; O2SAT 93
[2025-07-23 09:41] LABS: Specific Gravity, Urine 1.010 (1.005-1.030)
[2025-07-23 09:42] LABS: Add Urine Microscopic? YES; Glucose Urine UA 1+ (Normal); Nitrate Urine Negative (Negative); UA Manual Slide Review YES
[2025-07-23 10:17] VITALS: BP 152/88; PULSE 68; RESP 16; O2SAT 93
== END 2025-07-23 10:07 | disposition home or self-care (01) ==
PROVIDERS: Emergency Provider Family Medicine; PCP Nurse Practitioner Family
DX: N18.6 End stage renal disease (principal); Z99.2 Dependence on renal dialysis; E66.01 Morbid (severe) obesity due to excess calories; Z68.41 Body mass index [BMI] 40.0-44.9, adult; E11.9 Type 2 diabetes mellitus without complications; I10 Essential (primary) hypertension; E78.5 Hyperlipidemia, unspecified; Z79.82 Long term (current) use of aspirin
CPT/HCPCS: 36415; 71045; 80053; 81001; 83605; 85025; 87040; 93005; 99285

== ENCOUNTER → 2025-08-16 12:42 | Outpatient (BNVA) | payer MEDICARE, MEDICAID, SELFPAY ==
[2025-01-03 10:37] VITALS: BP 146/81; BMI 28.8
== END ==
PROVIDERS: PCP Nurse Practitioner Family; Visit Provider Podiatrist Foot & Ankle Surgery
DX: E11.8 Type 2 diabetes mellitus with unspecified complications (principal); L60.3 Nail dystrophy; L84 Corns and callosities; E11.649 Type 2 diabetes mellitus with hypoglycemia without coma; Z79.4 Long term (current) use of insulin; N18.6 End stage renal disease; Z99.2 Dependence on renal dialysis; G62.89 Other specified polyneuropathies
CPT/HCPCS: 11055; 11721

== ENCOUNTER 2025-09-11 10:35 | Emergency (ER) | payer MEDICARE, MEDICAID, SELFPAY ==
[2025-01-03 10:37] VITALS: BP 146/81; BMI 28.8
[2025-09-11 10:37] VITALS: BP 152/79; PULSE 64; RESP 18; TEMP 36.4; O2SAT 97; BMI 32.2
--- NOTE | 2025-09-11 10:44 | CT_ITS ---
WS: [id number] CT LUMBAR SPINE TECHNIQUE: Noncontrast CT of the lumbar spine with coronal and sagittal reformatted images. CLINICAL INFORMATION: trauma COMPARISON: None. DLP: 1078.[address] scans at [facility] use at least one of these dose optimization techniques: automated exposure control; mA and/or kV adjustment per patient size (includes targeted exams where dose is matched to clinical indication); or iterative reconstruction. FINDINGS: Acute appearing fracture of the RIGHT L2 transverse process laterally. No other visualized fractures. Advanced spondylitic changes lumbar spine with ankylosis in the lower thoracic and lumbar spine. Slight retrolisthesis L4 on L5. Disc space ankylosis lower thoracic spine extending through L3. Disc space narrowing L4-5. Appearance is similar in appearance to the prior MRI March 2024 L1-L2: Endplate osteophyte ridging. Mild LEFT foraminal narrowing. Spinal canal is patent. Moderate facet arthropathy. L2-L3: Mild central canal stenosis. Moderate LEFT bony foraminal narrowing. Mild RIGHT foraminal narrowing. Moderate facet arthropathy. L3-L4: Moderate LEFT foraminal narrowing. Spinal canal and RIGHT foramen are patent. Moderate facet arthropathy. L4-L5: Mild disc bulge with endplate ridging. Mild central canal stenosis. Slight narrowing of the subarticular recess. Mild LEFT greater than RIGHT foraminal narrowing. Moderate to advanced facet arthropathy. L5-S1: Advanced facet arthropathy. Mild RIGHT foraminal narrowing. Postoperative changes stomach partially visualized. Adrenal glands are normal. Shotty periaortic and retroperitoneal lymph nodes nonspecific but may be reactive. Vascular calcification. Sigmoid colon constipation. Partially visualized bladder wall thickening. CT/CT lumbar spine wo con* [id number] IMPRESSION: 1. No acute appearing compression fractures. 2. Fracture of the RIGHT L2 transverse process. 3. No high-grade central canal stenosis. 4. Moderate to advanced facet arthropathy lower lumbar spine. 5. No other acute findings.
--- NOTE | 2025-09-11 10:44 | XR_ITS ---
WS: [id number] Exam: XR hip BI 2V wo/w pel [id number] Date/Time of Exam: 09/11/2025 10:44 AM Reason For Exam: trauma No acute fracture of the LEFT hip.. Mild DJD of the joint compartment. Normal soft tissues. Healed fractures of the proximal RIGHT femur are noted and stabilized with an intramedullary patricia and femoral neck screws. No acute RIGHT hip fracture noted. XR/XR hip BI 2V wo/w pel [id number] IMPRESSION: 1. No acute fracture of the RIGHT or LEFT hip. 2. Old fractures of the proximal RIGHT femur with hardware.
--- NOTE | 2025-09-11 10:46 | W.ED.GENADLT ---
HPI - General Adult General: Chief complaint: Fall Stated complaint: Fall Time Seen by Provider: 09/11/25 10:36 History of Present Illness: 55-year-old male presents emergency room states he has weakness in his legs he fell 2 days ago. He has been ambulatory since. Main mention to the nurse that his right knee and hip hurt however I talked to him he focuses mainly on his right hip. He states his knee bothered him initially but now it is not hurting as bad he has chronic back pain. He denies any urinary retention or fecal incontinence, no saddle paresthesias. He has chronic radicular-like pain as well. He did not strike his head he did not lose consciousness when he fell. Associated symptoms: Deny chest pain, dyspnea or rash Related Data Home Medications ?Medication ?Instructions ?Recorded ?Confirmed atorvastatin 40 mg tablet 40 mg PO DAILY 11/07/20 08/16/25 tamsulosin 0.4 mg capsule (Flomax) 0.4 mg PO DAILY 11/07/20 08/16/25 aspirin 81 mg tablet,delayed 81 mg PO DAILY 02/03/21 08/16/25 release bumetanide 0.5 mg tablet 0.5 mg PO DAILY 09/20/24 08/16/25 clonidine 0.1 mg/24 hr weekly 1 patch transdermal .Weekly 11/16/24 08/16/25 transdermal patch metoprolol tartrate 100 mg tablet 100 mg PO BID 12/25/24 08/16/25 nifedipine 60 mg tablet,extended 60 mg PO DAILY 12/25/24 08/16/25 release 24 hr terazosin 5 mg capsule 5 mg PO DAILY 12/25/24 08/16/25 megestrol 400 mg/10 mL (40 mg/mL) 10 mg PO BID 02/20/25 08/16/25 oral suspension hydralazine 100 mg tablet 100 mg PO BID 04/12/25 08/16/25 brexpiprazole 2 mg tablet (Rexulti) 2 mg PO DAILY 07/23/25 08/16/25 cyclobenzaprine 10 mg tablet 10 mg PO TID PRN Muscle Spasm 07/23/25 08/16/25 famotidine 20 mg tablet 20 mg PO DAILY 07/23/25 08/16/25 hydroxyzine HCl 50 mg tablet 50 mg PO QID PRN Anxiety 07/23/25 08/16/25 ropinirole 0.5 mg tablet 0.5 mg PO BEDTIME 07/23/25 08/16/25 sevelamer carbonate 800 mg tablet 800 mg PO TID 07/23/25 08/16/25 vitamin B complex-vitamin C-folic 1 tab PO DAILY 07/23/25 08/16/25 acid 0.8 mg tablet (Ana-Yue) Previous Rx's ?Medication ?Instructions ?Recorded duloxetine 60 mg capsule,delayed 120 mg (2 x 60 mg) PO DAILY #60 11/16/24 release caps sertraline 100 mg tablet (Zoloft) 200 mg (2 x 100 mg) PO DAILY #60 11/16/24 tabs trazodone 100 mg tablet 400 mg (4 x 100 mg) PO .HS PRN 11/16/24 insomnia #120 tabs Hinged Knee Brace #1 ea 01/02/25 bupropion HCl 300 mg 24 hr tablet, 300 mg PO QAM #30 tabs 03/20/25 extended release (Wellbutrin XL) pantoprazole 40 mg tablet,delayed 40 mg PO BID POST GASTRIC SLEEVE 04/05/25 release (Protonix) 30 days #60 tabs clopidogrel 75 mg tablet (Plavix) 75 mg PO DAILY 90 days #90 tabs 04/13/25 nitroglycerin 0.4 mg sublingual 0.4 mg sublingual Q5M PRN Chest 04/18/25 tablet Pain #20 tabs losartan 100 mg tablet 100 mg PO DAILY #90 tabs 05/10/25 isosorbide mononitrate 30 mg 30 mg PO BIDWM #180 tabs 08/20/25 tablet,extended release 24 hr diclofenac sodium 75 mg 75 mg PO Q12H PRN pain #20 tabs 09/11/25 tablet,delayed release tizanidine 4 mg tablet 4 mg PO Q6H PRN muscle spasticity 09/11/25 #20 tabs Allergies Allergy/AdvReac Type Severity Reaction Status Date / Time diphenhydramine (From Allergy Unknown Unknown Verified 09/11/25 10:47 Benadryl) ertapenem (From Invanz) Allergy Unknown Unknown Verified 09/11/25 10:47 Review of Systems Const: Reports: fatigue; Denies: fever(s) or chills Card: Denies: chest pain Resp: Denies: dyspnea GI: Denies: abdominal pain : Denies: dysuria, urinary frequency or urinary urgency Musc: Reports: muscle weakness and decrease in muscle mass (Chronic); Denies: neck pain or back pain Skin/Breast: Denies: rash PFSH ED PFSH: Medical History Peripheral neuropathy Generalized anxiety disorder Major depressive disorder, 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 Diabetes mellitus Hypertension Psychiatric care GERD (gastroesophageal reflux disease) Chronic kidney disease Hypertension Hyperlipidemia Diabetes Morbid obesity Bereavement Chronic major depressive disorder Colon polyp Encounter for screening colonoscopy Surgical History History of colonoscopy with polypectomy History of tonsillectomy History of foot surgery History of shoulder surgery Family History Denies family history of Anesthesia complication Bleeding disorder Social History Smoking and tobacco/nicotine status: former use of tobacco/nicotine Quit status (tobacco/nicotine): has tried quititng Number of times tried to quit tobacco: 3 Second hand smoke exposure: Yes (Occ.) Alcohol intake: current Alcohol intake frequency: holidays/special occasions only Alcohol type: beer Substance/Drug Use: current Substance/Drug use frequency: few times a week Other substance/drug use details: A few times a week. Physical Exam Const: COMMON NORMALS: no acute distress GENERAL APPEARANCE: cooperative and comfortable ORIENTATION/CONSCIOUSNESS: Yes awake, Yes oriented to person, Yes oriented to place and Yes oriented to time HENMT: COMMON NORMALS: normocephalic, atraumatic and hearing grossly normal bilaterally HEAD & SCALP: normocephalic and atraumatic Resp: COMMON NORMALS: normal respiratory effort, No retractions, No use of accessory muscles and clear to auscultation bilaterally AUSCULTATION: clear to auscultation bilaterally Cardio: COMMON NORMALS: regular rate, regular rhythm and No murmurs present (Cardio) RATE: regular rate RHYTHM: regular rhythm GI: COMMON NORMALS: Soft to palpation and No hepatosplenomegaly present AUSCULTATION: Yes normoactive bowel sounds PALPATION: Yes Soft to palpation, No Tenderness to palpation present (GI), No Guarding due to palpation present (GI) and Yes No hepatosplenomegaly present Extremity: COMMON NORMALS: normal to inspection, capillary refill normal, no clubbing, cyanosis or edema, no calf tenderness and no pedal edema OTHER: Significant loss of muscle mass in the left lower extremity in both the upper and lower portion of the leg. And is able to raise the leg and hold for 8 to 10 seconds off the bed. Numbness tingling bilaterally remedies which is also chronic for the patient Neuro: SENSORIUM/ORIENTATION: Yes oriented to person, Yes oriented to place and Yes oriented to time Skin: COMMON NORMALS: no rashes or lesions noted GENERAL SKIN EXAM: no rashes or lesions noted Course Vital Signs: Vital signs: Vital Signs Temperature 97.6 F 09/11/25 10:37 Pulse Rate 69 09/11/25 13:23 Respiratory Rate 18 09/11/25 10:37 Blood Pressure 153/83 09/11/25 13:23 Pulse Oximetry 92 09/11/25 13:23 Oxygen Delivery Me thod Room Air 09/11/25 10:37 MDM - General Adult Medical Decision Making Medical decision making Social determinants: None I reviewed the patient's medical record. I reviewed the patient's current home meds> Alternate historians: None Differential diagnosis: Cauda equina syndrome lumbar radiculopathy lumbar fracture Lab Review: None Imaging: CT lumbar spine shows L2 transverse process fracture Assessment of risk Level of risk: Moderate Hospitalization considerations: Hospitalization for consultation considered however not required given findings of CT. Reexamination: Patient's pain is improved was able to ambulate without difficulty. Assessment and plan: No signs of cauda equina syndrome on exam or on imaging. Discussed with Dr. Lee who read the study. Does have an L2 spinous process fracture. Will discharge home with medications have him follow-up with orthopedic spine surgery return if has further problems. Patient is able to ambulate without difficulty prior to discharge. Lab Data Radiology Impressions Hip/Pelvis X-Ray 09/11/25 10:44 IMPRESSION: 1. No acute fracture of the RIGHT or LEFT hip. 2. Old fractures of the proximal RIGHT femur with hardware. Lumbar Spine CT 09/11/25 10:44 IMPRESSION: 1. No acute appearing compression fractures. 2. Fracture of the RIGHT L2 transverse process. 3. No high-grade central canal stenosis. 4. Moderate to advanced facet arthropathy lower lumbar spine. 5. No other acute findings. All radiology interpretation(s) finalized by discharge Discharge Plan Discharge Patient Disposition: Home Clinical Impression: Closed fracture of transverse process of lumbar vertebra Condition: Stable Prescriptions: New tizanidine 4 mg tablet 4 mg PO Q6H PRN (Reason: muscle spasticity) Qty: 20 0RF Rx Instructions: do not exceed 3 doses per 24 hrs diclofenac sodium 75 mg tablet,delayed release (DR/EC) 75 mg PO Q12H PRN (Reason: pain) Qty: 20 0RF No Action atorvastatin 40 mg tablet 40 mg PO DAILY tamsulosin [Flomax] 0.4 mg capsule 0.4 mg PO DAILY bumetanide 0.5 mg tablet 0.5 mg PO DAILY Rx Instructions: On non-dialysis days. megestrol 400 mg/10 mL (40 mg/mL) suspension 10 mg PO BID (DME) Hinged Knee Brace See Rx Instructions .Route .MEDSUPPLY Qty: 1 0RF Rx Instructions: As directed duloxetine 60 mg capsule,delayed release(DR/EC) 120 mg PO DAILY Qty: 60 11RF sertraline [Zoloft] 100 mg tablet 200 mg PO DAILY Qty: 60 11RF trazodone 100 mg tablet 400 mg PO .HS PRN (Reason: insomnia) Qty: 120 11RF clonidine 0.1 mg/24 hr patch weekly 1 patch transdermal .Weekly bupropion HCl [Wellbutrin XL] 300 mg tablet extended release 24 hr 300 mg PO QAM Qty: 30 11RF pantoprazole [Protonix] 40 mg tablet,delayed release (DR/EC) 40 mg PO BID 30 Days Qty: 60 3RF clopidogrel [Plavix] 75 mg tablet 75 mg PO DAILY 90 Days Qty: 90 3RF losartan 100 mg tablet 100 mg PO DAILY Qty: 90 3RF isosorbide mononitrate 30 mg tablet extended release 24 hr 30 mg PO BIDWM Qty: 180 0RF aspirin 81 mg Tablet,Delayed Release (Dr/Ec) 81 mg PO DAILY hydralazine 100 mg tablet 100 mg PO BID nitroglycerin 0.4 mg Tablet, Sublingual 0.4 mg sublingual Q5M PRN (Reason: Chest Pain) Qty: 20 0RF terazosin 5 mg capsule 5 mg PO DAILY metoprolol tartrate 100 mg tablet 100 mg PO BID nifedipine 60 mg tablet extended release 24hr 60 mg PO DAILY ropinirole 0.5 mg tablet 0.5 mg PO BEDTIME cyclobenzaprine 10 mg tablet 10 mg PO TID PRN (Reason: Muscle Spasm) hydroxyzine HCl 50 mg tablet 50 mg PO QID PRN (Reason: Anxiety) famotidine 20 mg tablet 20 mg PO DAILY Ana-Yue 0.8 mg tablet 1 tab PO DAILY sevelamer carbonate 800 mg tablet 800 mg PO TID Rexulti 2 mg tablet 2 mg PO DAILY Discharge Orders: Discharge ED (Routine); Ordered 09/11/25 Ordered By: Leandro Almaraz Referrals: Funmilayo Honre FNP [Primary Care Provider, Nurse Practitioner] Discharge Diet: Usual diet Discharge Activity: Increase activity as tolerated Patient Instructions: Opioid Safety, Pain Management, Patient Portal & [place] Instructions Activity Restrictions/Additional Instructions: Thank you for choosing [facility] for your healthcare needs today. It is very important that you follow up as instructed or that you return to the Emergency Department should you have concerns or if your condition changes or worsens in any way. Emergency department visits are focused on emergent conditions, in some cases you may require further evaluation on an outpatient basis. You are seen emergency room with back pain. You have a low transverse process fracture of your second lumbar vertebrae no other significant abnormality. Will discharge you home with pain medications muscle relaxers and refer you to the orthopedic spine clinic. (Please note that included in your discharge packet is information concerning opioid safety and pain management. This information is given to all patients were discharged from the ER regardless of their discharge diagnosis or the medicines they usually take or are prescribed.) Print Language: Danish Coding Level of Care Code ED Rug Cleaner Hand for Betito Jung
--- OUTSIDE RECORDS SUMMARY | 2025-09-11 11:35 | XMS_ITS | Clinical Summary ---
Author Organization [facility] Facility Address [address] [place] [address] Care Team Providers Care Joss House Keeper Name Role Phone Unavailable Primary Care Provider Unavailabl e Encounters Date Type Department Care Team Description 09/04/2025 Orders Only [facility], [facility] [address] [place] [address] Shannon Cochran MD 09/04/2025 Treatment [facility], [facility] [address] [place] [address] Beatrice Young NP End stage renal disease; Dependence on renal dialysis; Hypertensive chronic kidney disease with stage 1 through stage 4 chronic kidney disease, or unspecified chronic kidney disease 08/29/2025 Orders Only [facility], [facility] [address] [place] [address] Shannon Cochran MD 08/27/2025 Treatment [facility] [employer], [facility] [address] [place] [address] Shannon Cochran MD End stage renal disease; Dependence on renal dialysis 08/22/2025 Orders Only [facility], [facility] [address] [place] [address] Shannon Cochran MD 08/20/2025 Treatment [facility] [employer], [facility] [address] [place] [address] Beatrice Young NP End stage renal disease; Dependence on renal dialysis; Hypertensive chronic kidney disease with stage 1 through stage 4 chronic kidney disease, or unspecified chronic kidney disease 08/15/2025 Orders Only [facility] [employer], [facility] [address] [place] [address] Shannon Cochran MD 08/13/2025 Treatment 8[facility], [facility] [address] [place] [address] Beatrice Young NP End stage renal disease; Dependence on renal dialysis; Hypertensive chronic kidney disease with stage 1 through stage 4 chronic kidney disease, or unspecified chronic kidney disease 08/08/2025 [facility], [facility] [address] [place] [address] Shannon Cochran MD 08/06/[address] [place] [address], [facility] [address] [place] [address] Shannon Cochran MD End stage renal disease; Dependence on renal dialysis 08/03/2025 [facility], [facility] [address] [place] [address] hSannon Cochran MD 08/01/2025 Orders [facility], [facility] [address] [place] [address] Shannon Cochran MD 07/30/[address] [place], [place] [address], [facility] [address] [place] [address] Beatrice Young NP End stage renal disease; Dependence on renal dialysis; Hypertensive chronic kidney disease with stage 1 through stage 4 chronic kidney disease, or unspecified chronic kidney disease 07/19/2025 [facility]ill [facility], [facility] [address] [place] [address] Beatrice Young NP 07/18/2025 Orders Only [facility], [facility] [address] [place] [address] Shannon Cochran MD 07/18/[address] [place], [place] [address], [facility] [address] [place] [address] Merlyn Smith NP End stage renal disease; Dependence on renal dialysis 07/11/[address] [place], [place] [address], [facility] [address] [place] [address] Beatrice Young NP End stage renal disease; Dependence on renal dialysis 07/11/2025 [facility], [facility] [address] [place] [address] Shannon Cochran MD 07/04/2025 Orders [facility], [facility] [address] [place] [address] Shannon Cochran MD 07/02/[address] [place], [place] [address], [facility] [address] [place] [address] Shannon Cochran MD End stage renal disease; Dependence on renal dialysis 06/29/2025 [facility], [facility] [address] [place] [address] Shannon Cochran MD 06/27/[address] [place], [place] [address], [facility] [address] [place] [address] Beatrice Young NP End stage renal disease; Dependence on renal dialysis; Hypertensive chronic kidney disease with stage 1 through stage 4 chronic kidney disease, or unspecified chronic kidney disease 06/27/2025 [facility], [facility] [address] [place] [address] Shannon Cochran MD 06/20/2025 Orders Only [facility], [facility] [address] [place] [address] Shannon Cochran MD 06/18/[address] [place] [address] [facility], [facility] [address] [place] [address] Beatrice Young NP End stage renal disease; Dependence on renal dialysis; Hypertensive chronic kidney disease with stage 1 through stage 4 chronic kidney disease, or unspecified chronic kidney disease 06/13/2025 Orders Only [facility], [facility] [address] [place] [address] Shannon Cochran MD 06/13/2025 Treatment [facility], [facility] [address] [place] [address] Merlyn Smith NP End stage renal disease; Dependence on renal dialysis from Last 3 Months Family History Medical History Relation Comments Heart disease Father 2 Hypertension Father 2 Heart disease Mother 2 Hypertension Mother 2 Relation Status Comments Father 1 Father 2 Mother 1 Mother 2 Social History Tobacco Use Types Packs/Day Years Used Date Smoking Tobacco: Former Cigarettes 0 Q uit: 10/11/2012 Sex and Gender Information Value Date Recorded Sex Assigned at Not on file Legal Sex Male 12:44 PM EST Gender Identity Not on file Sexual Orientation Not on file Last Filed Vital Signs Vital Sign Reading Time Taken Comments Blood Pressure 112/70 12/17/2016 11:00 AM WAREHOUSE SPECIALIST Pulse 64 12/17/2016 11:00 AM WAREHOUSE SPECIALIST Temperature - - Respiratory Rate - - Oxygen Saturation - - Inhaled Oxygen Concentration - - Weight 126 kg (277 lb 6.4 oz) 12/17/2016 11:00 A M WAREHOUSE SPECIALIST Height 203.2 cm (6' 8 ) 12/17/2016 11:00 AM WAREHOUSE SPECIALIST Body Mass Index 30.47 12/17/2016 11:00 AM WAREHOUSE SPECIALIST Plan of Treatment Health Maintenance Due Date [...] (#1) 2025 07/26/2024, 2014 Diabetes: Ophthalmology Exam 08/09/2026 08/09/2025, 08/10/2024 Pneumococcal Vaccine: Peds ( 0 to 5 Years) and At-Risk Patients (6 to 49 Years) Discontinued 10/20/2016 Procedures Procedure Name Priority Date/Time Associated Diagnosis Comments HEMOGLOBIN Routine 09/04/2025 CO2, TOTAL Routine 09/04/2025 CHLORIDE Routine 09/04/2025 CREATININE, SERUM Routine 09/04/2025 HEMOGLOBIN Routine 08/29/2025 CO2, TOTAL Routine 08/29/2025 CHLORIDE Routine 08/29/2025 CREATININE, SERUM Routine 08/29/2025 HEMOGLOBIN Routine 08/22/2025 CO2, TOTAL Routine 08/22/2025 CHLORIDE Routine 08/22/2025 CREATININE, SERUM Routine 08/22/2025 [facility] RESULTS Routine 08/15/2025 DIFFERENTIAL WITH WBC Routine 08/15/2025 CBC Routine 08/15/2025 PLATELET COUNT Routine 08/15/2025 POST DIALYSIS BUN Routine 08/15/2025 IRON AND TIBC Routine 08/15/2025 MAGNESIUM Routine 08/15/2025 GLUCOSE, RANDOM Routine 08/15/2025 ALBUMIN Routine 08/15/2025 PROTEIN, TOTAL, SERUM Routine 08/15/2025 PHOSPHATE ( PHOSPHORUS) Routine 08/15/2025 CALCIUM Routine 08/15/2025 CO2, TOTAL Routine 08/15/2025 CHLORIDE Routine 08/15/2025 SODIUM Routine 08/15/2025 BUN Routine 08/15/2025 CREATININE, SERUM Routine 08/15/2025 POTASSIUM Routine 08/15/2025 CHEMISTRY Routine 08/08/2025 HEMATOLOGY Routine 08/08/2025 [facility] RESULTS Routine 08/03/2025 HD KINETICS Routine 08/03/2025 POST CHEMISTRY Routine 08/03/2025 CHEMISTRY Routine 08/03/2025 HEMATOLOGY Routine 08/01/2025 CHEMISTRY Routine 08/01/2025 CHEMISTRY Routine 07/18/2025 HEMATOLOGY Routine 07/18/2025 [facility] RESULTS Routine 07/11/2025 HD KINETICS Routine 07/11/2025 POST CHEMISTRY Routine 07/11/2025 CHEMISTRY Routine 07/11/2025 HEMATOLOGY Routine 07/11/2025 CHEMISTRY Routine 07/04/2025 HEMATOLOGY Routine 07/04/2025 HEMATOLOGY Routine 06/27/2025 CHEMISTRY Routine 06/27/2025 CHEMISTRY Routine 06/20/2025 HEMATOLOGY Routine 06/20/2025 [facility] RESULTS Routine 06/13/2025 HD KINETICS Routine 06/13/2025 POST CHEMISTRY Routine 06/13/2025 CHEMISTRY Routine 06/13/2025 CHEMISTRY Routine 06/13/2025 TRACE ELEMENTS Routine 06/13/2025 HEMATOLOGY Routine 06/13/2025 HEMOGLOBIN A1C Routine 12/15/2016 12:00 AM WAREHOUSE SPECIALIST from Last 3 Months or Most Recently Relevant to Health Maintenance Results * (ABNORMAL) Hemoglobin (09/04/2025) Only the most recent of3 resultswithin the time period is included. Hemoglobin 10.6(L) 13.2 - 14.0 g/dL [facility] 09/04/2025 09/03/2025 12: 17 PM WAREHOUSE SPECIALIST Narrative Resulting Agency Comment Performing Organization Information: Site ID: JOON Name: [facility] Address: [address] [address] Director: Sathya Coronado MD Shannon Cochran MD LAB BLOOD ORDERABLES Final Re sult Performing Organization Address [facility]/ZIP Co de Phone Number [facility] [place] [address] [place] [phone] * (ABNORMAL) Creatinine, serum (09/04/2025) Only the most recent of4 resultswithin the time period is included. Creatinine 5.42(H) 0.70 - 1.30 mg/dL [facility] 09/04/2025 09/03/2025 12: 17 PM WAREHOUSE SPECIALIST Narrative Resulting Agency Comment Performing Organization Information: Site ID: JOON Name: [facility] Address: [address] [place] [phone] Director: Sathya Coronado MD Shannon Cochran MD LAB BLOOD ORDERABLES Final Re sult Performing Organization Address [facility] Co de Phone Number [facility] [address] [place] [phone] * Chloride (09/04/2025) Only the most recent of4 resultswithin the time period is included. Chloride 105 98 - 110 mmol/L [facility] 09/04/2025 09/03/2025 12: 17 PM WAREHOUSE SPECIALIST Narrative Resulting Agency Comment Performing Organization Information: Site ID: JOON Name: [facility] Address: [address] [place] [phone] Director: Sathya Coronado MD Shannon Cochran MD LAB BLOOD ORDERABLES Final Re sult Performing Organization Address City/[facility] Co de Phone Number [facility] [address] [place] [address] [place] [address] * CO2 (09/04/2025) Only the most recent of4 resultswithin the time period is included. Bicarbonate (CO2) 23 20 - 29 mmol/L [facility] 09/04/2025 09/03/2025 12: 17 PM WAREHOUSE SPECIALIST Narrative Resulting Agency Comment Performing Organization Information: Site ID: JOON Name: [facility] Address: [address] [place] [phone] Director: Sathya Coronado MD us Shannon Cochran MD LAB BLOOD ORDERABLES Final Re sult Performing Organization Address [facility] de Phone Number [facility] [address] * (ABNORMAL) Iron and TIBC (08/15/2025) Iron, Total 98 50 - 180 mcg/dL [facility] TIBC 202(L) 250 - 425 mcg/dL (calc) [facility] Iron Saturation (TSat) 49(H) 20 - 48 % (calc) [facility] 08/15/2025 08/13/2025 9:4 0 AM WAREHOUSE SPECIALIST Narrative Resulting Agency Comment Performing Organization Information: Site ID: JOON Name: [facility] Address: [address] [place] [phone] Director: Sathya Coronado MD us Shannon Cochran MD LAB BLOOD ORDERABLES Final Re sult Performing Organization Address [facility] Phone Number [facility] [employer] [address] * [facility] Results (08/15/2025) Only the most recent of4 resultswithin the time period is included. eKt/V [facility]ch [facility] eNPCR 0.70 [facility] spKt/V Gotch 1.52 [facility] nPCR_HD 0.75 [facility] spKt/V (Daugirdas II) 1.50 [facility] eKdrt/V 1.32 [facility] PCR 63.80 [facility] eKt/V (Tattersall) 1.30 [facility] WSTDKT/V 2.4 [facility] 08/15/2025 08/15/2025 us Booker Ordering Provider LAB BLOOD ORDERABLES Final Result [facility] Contact Performing lab Unknown, [place] * Post Dialysis BUN (08/15/2025) Pathologist [facility] BUN Post Dialysis 11 7 - 25 mg/dL [facility] 08/15/2025 08/13/2025 9:4 0 AM WAREHOUSE SPECIALIST Narrative Resulting Agency Comment Performing Organization Information: Site ID: [place] Name: [facility] Address: [address] [place] [address] [place] [address] Director: Sathya Coronado MD us Shannon Cochran MD LAB BLOOD ORDERABLES Final Re sult [facility] [address] [place] [address] [place] [address] * (ABNORMAL) Differential with WBC (08/15/2025) Pathologist [facility] WBC 5.6 3.8 - 10.8 Thousand/ uL [facility] Neutrophils Absolute 4,262 1,500 - 7,800 cells/uL [facility] Band Neutrophils Absolute, Manual Count CANCELED 0 - 750 cells/uL [facility] Comment:Result canceled by t he ancillary. Metamyelocytes Absolute CANCELED 0 cells/uL [facility] Comment:Result canceled by t he ancillary. Absolute Myelocytes CANCELED 0 cells/uL [facility] Comment:Result canceled by t he ancillary. Absolute Promyelocytes CANCELED 0 cells/uL [facility] Comment:Result canceled by t he ancillary. Lymphocytes Absolute 622(L) 850 - 3,900 cells/uL [facility] Monocytes Absolute 470 200 - 950 cells/uL [facility] Eosinophils Absolute 174 15 - 500 cells/uL [facility] Basophils Absolute 73 0 - 200 cells/uL [facility] Blasts Absolute CANCELED 0 cells/uL [facility] Comment:Result canceled by t he ancillary. NRBC Absolute CANCELED 0 cells/uL [facility] Comment:Result canceled by t he ancillary. Neutrophils Relative 76.1 % [facility] Bands Absolute CANCELED % [facility] Comment:Result canceled by t he ancillary. Metamyelocytes Percent CANCELED % [facility] Comment:Result canceled by t he ancillary. Myelocytes Relative CANCELED % [facility] Comment:Result canceled by t he ancillary. Promyelocytes Relative CANCELED % [facility] Comment:Result canceled by t he ancillary. Lymphocytes 11.1 % [facility] Variant lymphocytes/100 WBC (Bld) CANCELED 0 - 10 % [facility] Comment:Result canceled by t he ancillary. Monocytes 8.4 % [facility] Eosinophils 3.1 % [facility] Basophils Relative 1.3 % [facility] Blasts CANCELED % [facility] Comment:Result canceled by t he ancillary. nRBC CANCELED 0 /100 WBC [facility] Comment:Result canceled by t he ancillary. Comment(s) CANCELED [facility] Comment:Result canceled by t he ancillary. 08/15/2025 08/13/2025 9:4 0 AM WAREHOUSE SPECIALIST Narrative Resulting Agency Comment Performing Organization Information: Site ID: [place] Name: [facility] Address: [address] [address] Director: Sathya Coronado MD us Shannon Cochran MD LAB BLOOD ORDERABLES Final Re sult [facility] [address] [address] * (ABNORMAL) Platelet count (08/15/2025) Platelets 133(L) 140 - 400 Thousand/uL [facility] 08/15/2025 08/13/2025 9:4 0 AM WAREHOUSE SPECIALIST Narrative Resulting Agency Comment Performing Organization Information: Site ID: JOON Name: [facility] Address: [address] [place] [address] [place] [address] Director: Sathya Coronado MD Shannon Cochran MD LAB BLOOD ORDERABLES Final Re sult [facility] [address] [place] [address] [place] [address] * (ABNORMAL) CBC (08/15/2025) WBC 5.6 3.8 - 10.8 Thousand/u L [facility] RBC 4.14(L) 4.20 - 5.80 Million/uL [facility] Hemoglobin 10.7(L) 13.2 - 14.0 g/dL [facility] Hematocrit 34.5(L) 38.5 - 50.0 % [facility] MCV 83.3 80.0 - 100.0 fL [facility] MCH 25.8(L) 27.0 - 33.0 pg [facility] MCHC 31.0(L) 32.0 - 36.0 g/dL [facility] Comment: For adults, a slight decrease in the calculated MCHC value (in the range of 30 to 32 g/dL) is most likely not clinically significant; however, it should be interpreted with caution in correlation with other red cell parameters and the patient's clinical condition. RDW 15.9(H) 11.0 - 15.0 % [facility] 08/15/2025 08/13/2025 9:4 0 AM WAREHOUSE SPECIALIST Narrative Resulting Agency Comment Performing Organization Information: Site ID: JOON Name: [facility] Address: [address] [place] [phone] Director: Sathya Coronado MD Shannon Cochran MD LAB BLOOD ORDERABLES Final Re sult Performing Organization Address [facility] de Phone Number [facility] [address] [place] [phone] * (ABNORMAL) BUN (08/15/2025) BUN 40(H) 7 - 25 mg/dL [facility] 08/15/2025 08/13/2025 9:4 0 AM WAREHOUSE SPECIALIST Narrative Resulting Agency Comment Performing Organization Information: Site ID: JOON Name: [facility] Address: [address] [place] [phone] Director: Sathya Coronado MD Shannon Cochran MD LAB BLOOD ORDERABLES Final Re sult Performing Organization Address [facility] Number [facility] [address] * (ABNORMAL) Sodium (08/15/2025) Sodium 134(L) 135 - 146 mmol/L [facility] 08/15/2025 08/13/2025 9:4 0 AM WAREHOUSE SPECIALIST Narrative Resulting Agency Comment Performing Organization Information: Site ID: JOON Name: [facility] Address: [address] [place] [phone] Director: Sathya Coronado MD Shannon Cochran MD LAB BLOOD ORDERABLES Final Re sult Performing Organization Address [facility] de Phone Number [facility] [address] * (ABNORMAL) Protein, total (08/15/2025) Total Protein 5.8(L) 6.1 - 8.1 g/dL [facility] 08/15/2025 08/13/2025 9:4 0 AM WAREHOUSE SPECIALIST Narrative Resulting Agency Comment Performing Organization Information: Site ID: JOON Name: [facility] Address: [address] [place] [phone] Director: Sathya Coronado MD us Shannon Cochran MD LAB BLOOD ORDERABLES Final Re sult Performing Organization Address [facility] de Phone Number [facility] [address] [place] [address] * Potassium (08/15/2025) Potassium 3.9 3.5 - 5.3 mmol/L [facility] 08/15/2025 08/13/2025 9:4 0 AM WAREHOUSE SPECIALIST Narrative Resulting Agency Comment Performing Organization Information: Site ID: JOON Name: [facility] Address: [address] [place] [phone] Director: Sathya Coronado MD us Shannon Cochran MD LAB BLOOD ORDERABLES Final Re sult Performing Organization Address [facility] de Phone Number [facility] [address] [place] [address] * (ABNORMAL) Phosphorus (08/15/2025) Phosphorus 6.1(H) 3.0 - 4.5 mg/dL [facility] 08/15/2025 08/13/2025 9:4 0 AM WAREHOUSE SPECIALIST Narrative Resulting Agency Comment Performing Organization Information: Site ID: JOON Name: [facility] Address: [address] [place] [phone] Director: Sathya Coronado MD us Shannon Cochran MD LAB BLOOD ORDERABLES Final Re sult Performing Organization Address [facility] Co de Phone Number [facility] [address] [place] [phone] * Magnesium (08/15/2025) Magnesium 2.0 1.6 - 2.5 mg/dL [facility] 08/15/2025 08/13/2025 9:4 0 AM WAREHOUSE SPECIALIST Narrative Resulting Agency Comment Performing Organization Information: Site ID: JOON Name: [facility] Address: [address] [place] [phone] Director: Sathya Coronado MD Shannon Cochran MD LAB BLOOD ORDERABLES Final Re sult Performing Organization Address [facility]/ZIP Co de Phone Number [facility] [address] [place] [phone] * (ABNORMAL) Glucose, random (08/15/2025) Glucose 130(H) 65 - 99 mg/dL [facility] Comment: For someone without known diabetes, a glucose value >125 mg/dL indicates that they may have diabetes and this should be confirmed with a follow-up test. 08/15/2025 08/13/2025 9:4 0 AM WAREHOUSE SPECIALIST Narrative Resulting Agency Comment Performing Organization Information: Site ID: JOON Name: [facility] Address: [address] [place] [phone] Director: Sathya Coronado MD us Shannon Cochran MD LAB BLOOD ORDERABLES Final Re sult [facility] [address] [place] [phone] * (ABNORMAL) Calcium (08/15/2025) Calcium 8.4(L) 8.6 - 10.0 mg/dL [facility] 08/15/2025 08/13/2025 9:4 0 AM WAREHOUSE SPECIALIST Narrative Resulting Agency Comment Performing Organization Information: Site ID: JOON Name: [facility] Address: [address] [place] [phone] Director: Sathya Coronado MD Shannon Cochran MD LAB BLOOD ORDERABLES Final Re sult Performing Organization Address [facility] Co de Phone Number [facility] [address] [place] [phone] * Albumin (08/15/2025) Albumin 3.9 3.6 - 5.1 g/dL [facility] 08/15/2025 08/13/2025 9:4 0 AM WAREHOUSE SPECIALIST Narrative Resulting Agency Comment Performing Organization Information: Site ID: [place] Name: [facility] Address: [address] [place] [phone] Director: Sathya Coronado MD Shannon Cochran MD LAB BLOOD ORDERABLES Final Re sult Performing Organization Address [facility] Co de Phone Number [facility] [address] [place] [phone] * (ABNORMAL) HEMATOLOGY (08/08/2025) Only the most recent of8 resultswithin the time period is included. Hemoglobin 10.5(L) 14.0 - 18.0 g/dL [facility] Hemoglobin x 3 31.5(L) 42.0 - 54.0 % [facility] 08/08/2025 08/09/2025 9:2 2 AM CDT Narrative [facility] - 08/09/2025 Unless otherwise specified, test(s) performed at: [facility], [address] [place] [address] SALES MARKETING DIRECTOR: Dar Kang M.D. For any questions, please call customer service at FREQUENCY:OTHER Resulting Agency Comment Specimen source: Blood us Shannon Cochran MD LAB BLOOD ORDERABLES Final Re sult Performing Organization Address [facility] de Phone Number [facility] See order comments or contact performing lab Unknown, [place] * (ABNORMAL) [facility] (08/08/2025) Only the most recent of10 resultswithin the time period is included. Creatinine 5.64(H) 0.60 - 1.30 mg/dL [facility] Chloride 98 96 - 108 mEq/L [facility] Bicarbonate (CO2) 25 22 - 29 mEq/L [facility] Ferritin 493(H) 22 - 322 ng/mL [facility] 08/08/2025 08/09/2025 9:0 2 AM CDT Narrative [facility] - 08/09/2025 Unless otherwise specified, test(s) performed at: [facility], [address] [place] [address] SALES MARKETING DIRECTOR: Dar Kang M.D. For any questions, please call customer service at FREQUENCY:OTHER Resulting Agency Comment Specimen source: Serum us Shannon Cochran MD LAB BLOOD ORDERABLES Edited R esult - Final Performing Organization Address [facility] de Phone Number [employer] See order comments or contact performing lab Unknown, [place] * [facility] [employer] (08/03/2025) Only the most recent of3 resultswithin the time period is included. % Urea Reduction 78 65 - 80 % [facility] 08/03/2025 08/04/2025 9:5 5 AM CDT Narrative Resulting Agency Comment Specimen source: Plasma us Shannon Cochran MD LAB BLOOD ORDERABLES Final Re sult Performing Organization Address [facility] de Phone Number [facility] See order comments or contact performing lab Unknown, [place] * (ABNORMAL) POST CHEMISTRY (08/03/2025) Only the most recent of3 resultswithin the time period is included. BUN Post Dialysis 5(L) 6 - 19 mg/dL [facility] 08/03/2025 08/04/2025 9:5 5 AM CDT Narrative [facility] - 08/04/2025 Unless otherwise specified, test(s) performed at: [facility], [address] [place] [address] SALES MARKETING DIRECTOR: Dar Kang M.D. For any questions, please call customer service at FREQUENCY:OTHER Resulting Agency Comment Specimen source: Plasma Shannon Cochran MD LAB BLOOD ORDERABLES Final Re sult [facility] See order comments or contact performing lab Unknown, [place] * [employer] (06/13/2025) Pathologist [facility] Aluminum 5 0 - 10 mcg/L [facility] Comment: This test was developed and its performance characteristics determined by [facility]. It has not been cleared or approved by the FDA. The laboratory is regulated under CLIA as qualified to perform high complexity testing. This test is used for clinical purposes. It should not be regarded as investigational or for research. 06/13/2025 06/14/2025 10: 46 AM CDT Narrative [facility] - 06/14/2025 Unless otherwise specified, test(s) performed at: [facility], [address] [place] [address] SALES MARKETING DIRECTOR: Dar Kang M.D. For any questions, please call customer service at FREQUENCY:MONTHLY Resulting Agency Comment Specimen source: Serum Shannon Cochran MD LAB BLOOD ORDERABLES Final Re sult [employer] [facility] See order comments or contact performing lab Unknown, [place] * (ABNORMAL) Hemoglobin A1c (12/15/2016 12:00 AM WAREHOUSE SPECIALIST) Pathologist [facility] Hemoglobin A1C 8.6(H) 4.0 - 6.0 % SNA Comment per courtesy lab ms SNA 12/15/2016 Riki Vogel MD LAB BLOOD ORDERABLES Fi nal Result SNA from Last 3 Months or Most Recently Relevant to Health Maintenance Insurance Medicaid [place] ([id number]) [facility] Medicare
--- OUTSIDE RECORDS SUMMARY | 2025-09-11 11:35 | XMS_ITS | Encounter Summary ---
Author Organization [place] [facility] [place], [facility] Address [address] [place] [address] Phone Care Team Providers Care Is Support Analyst Name Role Phone Unavailable Primary Care Provider Unavailabl e Encounter Details Date Type Department Care Team (Late st Contact Info) Description 04/23/2025 TCM in Dialysis Clinic [facility] [place], [facility] [address] [place] [address] Vania Dudley NP [address] [place] [address] Social History Tobacco Use Types [...] 04/23/2025 The patient was seen for a ydxc-[id number] visit as part of Transitional Care Management services. Primary cause of renal failure: I12.9 - Hypertensive chronic kidney disease with stage 1 through stage 4 chronic kidney disease, or unspecified chronic kidney disease Attending Architecture Analyst: NATE SAHU Dialysis Location: [facility] [...] 97.6*F Current Dialysis Vitals BP Sit: 181/88 AP/REHAB ASSISTANT: -- Pulse: 71 CARE COORDINATION Post-discharge follow-up appointments reviewed with the patient. Established or re-established referrals. COMMENTS: fistulogram IMPRESSION & PLAN COMMENTS: CP- heart cath s/p stent placement. Started [facility] ESRD- using CVC. Will have fistulogram done soon. HD per MWF. VISIT DIAGNOSES CPT Code 05199 - High complexity, seen within 7 days [...]
--- OUTSIDE RECORDS SUMMARY | 2025-09-11 11:36 | XMS_ITS | Encounter Summary ---
Author Organization [facility] Address [address] [place] [address] Care Team Providers Care Behavioral Interventionist Name Role Phone Osmani Contreras MD Primary Care Provider [phone] Encounter Details Date Type Department Care Team (Latest Contact Info) Description 07/25/2004 Outpatient [facility] [address] [place] [phone] Sarwat Naidu MD [address] [place] [phone] HYPERTENSION NOS (Primary Dx) Social History Tobacco Use Types Packs/Day Years Used Date Smoking Tobacco: Never Assessed Sex and Gender Information Value Date Recorded Sex Assigned at Not on file Legal Sex Male 3:06 AM PEDICURIST Gender Identity Not on file Sexual Orientation Not on file documented as of this encounter Plan of Treatment Not on file documented as of this encounter Visit Diagnoses Diagnosis Unspecified essential hypertension- Primary documented in this encounter Additional Health Concerns Infection Onset Date Last Indicated Resolved Time C Diff Comment:Resolved 09/08/2018, Infection Prevention 03/11/16 ([facility]) 03/25/2016 03/25/2016 8 7:46 AM PEDICURIST documented as of this encounter Care Teams Behavioral Interventionist Relationship Specialty Start Date End Date Osmani Contreras MD [address] [place] [address] PCP - General Family Practice 12/04/15 documented as of this encounter
--- OUTSIDE RECORDS SUMMARY | 2025-09-11 11:36 | XMS_ITS | Encounter Summary ---
Author Organization [facility] Address [address] [place] [address] Care Team Providers Care Outreach Consultant Name Role Phone Osmani Contreras MD Primary Care Provider [phone] Encounter Details Date Type Department Care Team (Latest Contact Info) Description 07/24/2004 Outpatient Historical [facility] [address] [place] [phone] Sarwat Naidu MD [address] [place] [phone] HYPERTENSION NOS (Primary Dx) Social History Tobacco Use Types Packs/Day Years Used Date Smoking Tobacco: Never Assessed Sex and Gender Information Value Date Recorded Sex Assigned at Not on file Legal Sex Male 3:06 AM AIRFIELD SERVICES OFFICER Gender Identity Not on file Sexual Orientation Not on file documented as of this encounter Plan of Treatment Not on file documented as of this encounter Visit Diagnoses Diagnosis Unspecified essential hypertension- Primary documented in this encounter Additional Health Concerns Infection Onset Date Last Indicated Resolved Time C Diff Comment:Resolved 09/08/2018, Infection Prevention 03/11/16 ([facility]) 03/25/2016 03/25/2016 8 7:46 AM AIRFIELD SERVICES OFFICER documented as of this encounter Care Teams Outreach Consultant Relationship Specialty Start Date End Date Osmani Contreras MD [address] [place] [address] PCP - General Family Practice 12/04/15 documented as of this encounter
--- OUTSIDE RECORDS SUMMARY | 2025-09-11 11:36 | XMS_ITS | Encounter Summary ---
Author Organization [facility] Address [address] [place] [address] Care Team Providers Care Muffle Operator Name Role Phone Osmani Contreras MD Primary Care Provider Encounter Details Date Type Department Care Team (Late st Contact Info) Description 07/08/2004 Outpatient Historical [facility] [address] [place] [phone] Ger Fabian MD [address] [place] [address] Social History Tobacco Use Types Packs/Day Years Used Date Smoking Tobacco: Never Assessed Sex and Gender Information Value Date Recorded Sex Assigned at Not on file Legal Sex Male 3:06 AM MILL REPRESENTATIVE Gender Identity Not on file Sexual Orientation Not on file documented as of this encounter Plan of Treatment Not on file documented as of this encounter Visit Diagnoses Not on filedocumented in this encounter Additional Health Concerns Infection Onset Date Last Indicated Resolved Time C Diff Comment:Resolved 09/08/2018, Infection Prevention 03/11/16 ([facility]) 03/25/2016 03/25/2016 8 7:46 AM MILL REPRESENTATIVE documented as of this encounter Care Teams Muffle Operator Relationship Specialty Start Date End Date Osmani Contreras MD [address] [place] [address] PCP - General Family Practice 12/04/15 documented as of this encounter
--- OUTSIDE RECORDS SUMMARY | 2025-09-11 11:36 | XMS_ITS | Encounter Summary ---
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 NO ADDRESS ON FILE Social History Tobacco Use Types Packs/Day Years Used Date Smoking Tobacco: Former Smokeless Tobacco: Current Chew Alcohol Use Standard Drinks/Week Comments Yes 0 (1 standard drink = 0.6 oz pur e alcohol) rare Sex and Gender Information Value Date Recorded Sex Assigned at Not on file Legal Sex Male 3:06 AM BACK LINE COOK Gender Identity Not on file Sexual Orientation [...] [facility]) 03/25/2016 03/25/2016 8 7:46 AM BACK LINE COOK documented as of this encounter Care Teams Rolling Mill Operator Helper Relationship Specialty Start Date End Date Osmani Contreras MD [address] [place] [address] PCP - General Family Practice 12/04/15 documented as of this encounter
--- OUTSIDE RECORDS SUMMARY | 2025-09-11 11:36 | XMS_ITS | Clinical Summary ---
Author Organization [facility] Address [address] [facility] Attn: [place] [address] Care Team Providers Care Electron Gun Assembler Name Role Phone Osmani Contreras MD Primary Care Provider Allergies Active Allergy Reactions Criticality Noted Date Comments Diphenhydramine Hcl Other (See Comments) 2015 it makes me mean Ertapenem Unknown 09/06/2018 Hydralazine Diarrhea Low 08/09/2025 Procaine Unknown 09/06/2018 Medications polyethylene glycol (MIRALAX) [...] Spasm. 30 Tablet 0 6 Active OTHER MASTER COOK/GRABBER. 1 Each 0 6 Active albuterol sulfate [...] 2 Active fluticasone propionate (FLONASE) 50 mcg/spray [place], Suspension nasal inhaler 2 Active aspirin (ECOTRIN EC) 81 mg Tablet, Delayed Release (E.C.) Take 81 mg by mouth daily. Active Alpha Lipoic Acid 200 mg Tablet Take 1 Tablet by mouth 2 times daily. 4 Active busPIRone (BUSPAR) 10 mg tablet Take 1 Tablet by mouth 2 times daily. 4 Active Rzcjzekm-JUV-5 0.1 mg/24 hr patch Apply 1 Patch [...] mg tabletIndicati ons:ESRD (end stage renal disease) (CMS/[facility]) Take 1 Tablet by mouth every 4 [...] mg by mouth daily at bedtime. Active vitamin B complex-vitami n C-folic acid (Renal Caps) 1 mg Capsule Take by mouth. 5 Active bumetanide (BUMEX) 0.5 mg tablet TAKE 1 TABLET BY MOUTH DAILY ON NON-DIALYSIS DAYS DIRECTED BY PHYSICIAN 5 Active buPROPion HCL (WELLBUTRIN XL) 150 mg Extended Release 24 hour tablet Take 150 mg by mouth daily in the morning. 5 Active buPROPion HCL (WELLBUTRIN XL) 300 mg Extended Release 24 hour tablet Take 300 mg by mouth daily in the morning. 5 Active carvediloL (COREG) 12.5 mg tablet Take 1 Tablet by mouth 2 times daily. 4 Active Active Problems Problem Noted Date Diagnosed [...] (02/06/2021): Added automatically from request for surgery [id number] Chronic left-sided low back pain without sciatic [...] ARF (acute renal failure) 03/22/2016 Muscular deconditioning 03/22/201605/12 Acute pulmonary edema 03/22/20162015 Edema extremities 03/22/2016 [...] Encounters Date Type Department Care Team Description 08/09/2025 12:50 PM CDT Office Visit [facility] Op[facility] [place] [address] [address] Carol Morales MD Type 2 diabetes mellitus with both eyes affected by mild nonproliferative retinopathy without macular edema, with long-term current use of insulin (CMS/HCC) (Primary Dx); 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 [address] Shannon Cochran MD Birlew, Ryan Avery, MD Discharge Disposition: [...] Smoking Tobacco: Former Cigarettes 0 Q uit: 12/28/2012 Smokeless Tobacco: Current Chew [...] on file Legal Sex Male 7:30 AM GIFTED TEACHER Gender Identity Not on file Sexual [...] Care Team (Late st Contact Info) Description 08/15/2026 11:00 AM GIFTED TEACHER Office Visit [facility] Ophthal[facility] [place] [address] [phone] Carol Morales MD [address] [place] [phone] Health Maintenance Due Date Last Done Comments [...] Additional history exists INFLUENZA VACCINE (#1) 2025 4, 08/17/2022, 07/23/2021, Additional history exists COVID-19 Vaccine (3 - 2024-2 6 season) 2025 06/15/2021, 05/18/2021 DIABETES ANNUAL RETINAL EXAM 08/09/2026, 08/09/2025, 08/09/2025, Additional history exists Abdominal Aortic Aneurysm (A AA) Screening Completed 03/22/2016 Medical Devices Implanted Type Area Shirt Ironer Device Identifier Shelf Expiration Date Model / Serial / Lot Clip Ligating Horizon Med Ti [id number] - Csc - [id number] Implanted:Qty: 1 on 12/28/2024 by Francoise Kinney MD at [facility] Clip Left: Arm TELEFLEX- WECK CLOSURE SYS [id number] 07/18/2029 [id number] / / [id number] Clip Ligating Horizon Red 769142 - Csc - [id number] Implanted:Qty: 1 on 12/28/2024 by Francoise Kinney MD at [facility] Clip Left: Arm TELE[employer]LEX INC [id number] 09/02/2029 [id number] / / [id number] Coil Emb María .035 6mm 14cm Micro Pltnm [id number] - [id number] Implanted:Qty: 1 on 05/10/2025 by Sanjeev Espinosa MD at [facility] Coil Left: Vein COOK- INTERVENTIONAL RAD [id number] 02/22/2030 [id number] / / [id number] Coil Emb María .035 6mm 14cm Micro Pltnm [id number] - [id number] Implanted:Qty: 1 on 05/10/2025 by Sanjeev Espinosa MD at [facility] Coil Left: Vein COOK- INTERVENTIONAL RAD [id number] 02/12/2030 [id number] / / [id number] Coil Interlock-35 360 6.9pex07co [id number] - [id number] Implanted:Qty: 1 on 05/10/2025 by Sanjeev Espinosa MD at [facility] Coil Left: Vein [employer] SCI- NEUROVASC [id number] 04/14/2027 [id number] / / [id number] Coil Emb María .035 6mm 14cm Micro Pltnm [id number] - [id number] Implanted:Qty: 1 on 05/10/2025 by Sanjeev Espinosa MD at [facility] Coil Left: Vein COOK- INTERVENTIONAL RAD [id number] 02/12/2030 [id number] / / [id number] Coil Emb María .035 6mm 14cm Micro Pltnm [id number] - [id number] Implanted:Qty: 1 on 05/10/2025 by Sanjeev Espinosa MD at [facility] Coil Left: Vein COOK- INTERVENTIONAL RAD [id number] 02/12/2030 [id number] / / [id number] Coil Emb María .035 6mm 14cm Micro Pltnm [id number] - [id number] Implanted:Qty: 1 on 05/10/2025 by Sanjeev Espinosa MD at [facility] Coil Left: Vein COOK- INTERVENTIONAL RAD [id number] 02/12/2030 [id number] / / [id number] Coil Emb María .035 6mm 14cm Micro Pltnm [id number] - [id number] Implanted:Qty: 1 on 05/10/2025 by Sanjeev Espinosa MD at [facility] Coil Left: Vein COOK- INTERVENTIONAL RAD [id number] 02/12/2030 [id number] / / [id number] Coil Emb María .035 6mm 14cm Micro Pltnm [id number] - [id number] Implanted:Qty: 1 on 05/10/2025 by Sanjeev Espinosa MD at [facility] Coil Left: Vein COOK- INTERVENTIONAL RAD [id number] 02/22/2030 [id number] / / [id number] Screw Hex Int Rc Bl 6.4x110 [id number] - [id number] Implanted:Qty: 1 on 03/30/2019 by oClt Garza MD Screw Right: Femur FOWLER NEPHEW ORTHO 07/30/2025 [id number] / / [id number] Screw Hex Int Rc Bl 6.4x115 [id number] - [id number] Implanted:Qty: 1 on 03/30/2019 by Colt Garza MD Screw Right: Femur FOWLER NEPHEW ORTHO 01/08/2022 [id number] / / [id number] Screw Trgn Lp 5.0x50mm [id number] - [id number] Implanted:Qty: 1 on 03/30/2019 by Colt Garza MD Screw Right: Femur FOWLER NEPHEW ORTHO 02/11/2029 [id number] / / [id number] Screw Trgn Lp 5.0x60mm 2748-7729 - [id number] Implanted:Qty: 1 on 03/30/2019 by Colt Garza MD Screw Right: Femur FOWLER NEPHEW ORTHO 10/11/2026 [id number] / / [id number] Nail Implanted:Qty: 1 on 03/30/2019 by Colt Garza MD Right: Femur FOWLER NEPHEW ORTHO 08/10/2020 [id number] / / [id number] Explanted Type Area Shirt Ironer Device Identifier Shelf Expiration Date Model / Serial / Lot Nail Fan Jud Rt 11.1ocx82qs [id number] - [id number] Implanted:Qty: 1 on 09/07/2018 by Colt Garza MD Explanted:Qty: 1 on 03/30/2019 by Colt Garza MD Nail Right: Femur FOWLER NEPHEW ORTHO 10/04/2025 [id number] / / [id number] Description:INV Screw Hex Int Rc Bl 6.4x110 [id number] - [id number] Implanted:Qty: 1 on 09/07/2018 by Colt Garza MD Explanted:Qty: 1 on 03/30/2019 by Colt Garza MD Screw Right: Femur FOWLER NEPHEW ORTHO 05/19/2027 [id number] / / [id number] Description:INV Screw Hex Int Rc Bl 6.4x115 [id number] - [id number] Implanted:Qty: 1 on 09/07/2018 by Colt Garza MD Explanted:Qty: 1 on 03/30/2019 by Colt Garza MD Screw Right: Femur FOWLER NEPHEW ORTHO 12/08/2019 [id number] / / [id number] Description:INV Screw Trgn Lp 5.0x47.5mm 5916-6544 - [id number] Implanted:Qty: 1 on 09/07/2018 by Colt Garza MD Explanted:Qty: 1 on 03/30/2019 by Colt Garza MD Screw Right: Femur FOWLER NEPHEW ORTHO 02/03/2028 [id number] / / [id number] Description:INV Screw Trgn Lp 5.0x52.5mm 0556-2362 - [id number] Implanted:Qty: 1 on 09/07/2018 by Colt Garza MD Explanted:Qty: 1 on 03/30/2019 by Colt Garza MD Screw Right: Femur FOWLER NEPHEW ORTHO 03/13/2028 [id number] / / [id number] Description:INV Procedures Procedure Name Priority Date/Time Associated Diagnosis Comments OCT, RETINA - OU - BOTH EYES Routine 08/09/2025 12:51 PM CDT Type 2 diabetes mellitus with both eyes affected by mild nonproliferative retinopathy without macular edema, with long-term current use of insulin ([facility]) EYE DROPS Routine 08/09/2025 12:36 PM CDT Type 2 diabetes mellitus with both eyes affected by mild nonproliferative retinopathy without macular edema, with long-term current use of insulin ([facility]) IR FISTULOGRAM Routine 07/03/2025 1:28 PM CDT ESRD (end stage renal disease) ([facility]) HEMOGLOBIN A1C Routine 03/31/2019 10:[address] ABDOMEN PELVIS WO CONTRAST IP Routine 03/22/2016 10:33 PM CDT from Last 3 Months or Most Recently Relevant to Health Maintenance Results * OCT, RETINA - OU - BOTH EYES (08/09/2025 12:51 PM CDT) Narrative [facility] OPHTHALMOLOGY ORDERS - 08/09/2025 1:38 PM CDT Optical coherence tomography ordered to evaluate the status of the macula: Right Eye: trace diabetic macular edema at the nasal fovea, improving from previous. Left Eye: normal foveal contour Carol Morales MD OPHTH TOMOGRAPHY Final Re sult [facility] OPHTHALMOLOGY ORDERS * EYE DROPS (08/09/2025 12:36 PM CDT) Narrative [facility] - 08/09/2025 1:38 PM CDT Medications Eye Drops: 1 Drop phenylephrine 2.5 % Route: Topical NDC: 50954-707-21, Lot: [id number], Expiration date: 10/11/2025 1 Drop proparacaine 0.5 % Route: Topical NDC: 18129-517-71, Lot: [id number], Expiration date: 11/11/2026 1 Drop tropicamide 1 % Route: Topical NDC: 94933-002-28, Lot: [id number], Expiration date: 05/11/2026 Notes Eye drop orders per protocol for Basic Compotype Operator Eye Exam (Dilated) 1 Drop proparacaine (OPHTHAINE) 0.5% ophthalmic solution prior to tonometry 1 Drop tropicamide (MYDRIACYL) 1% ophthalmic solution 1 Drop phenylephrine (AK-DILATE, MYDFRIN) 2.5% ophthalmic solution Carol Morales MD OPH CLINIC PROCEDURES F inal Result Performing Organization Address [facility]/ZIP Co de Phone Number [facility] CLIA# [id number] [address] [place] [address] * IR FISTULOGRAM (07/03/2025 1:28 PM CDT) Anatomical Region Laterality Modality X-Ray [...] fistula. DIAGNOSIS: ESRD (end stage renal disease) ([facility]). Medications: Fentanyl and versed were titrated to effect. Moderate (conscious) sedation for this procedure was performed with continuous physician supervision. Medical history, physical exam, drug dosages, routes of drug administration, monitoring data, and precise times of service are documented in the medical record on the [facility]-approved form, 'Sedative/Analgesic Administration for Diagnostic and Therapeutic [...] distal dilator was exchanged for a 6 [place] Islander vascular sheath over a 0.035 inch Glidewire. A 9 mm balloon was advanced into the cephalic vein outflow stenosis and angioplasty was performed. The sheath was then exchanged for a 7 [place]er sheath and a 9 mm Lutonix drug [...] fistula. DIAGNOSIS: ESRD (end stage renal disease) ([facility]). Medications: Fentanyl and versed were titrated to effect. Moderate (conscious) sedation for this procedure was performed with continuous physician supervision. Medical history, physical exam, drug dosages, routes of drug administration, monitoring data, and precise times of service are documented in the medical record on the [facility]-approved form, 'Sedative/Analgesic Administration for Diagnostic and Therapeutic [...] distal dilator was exchanged for a 6 [place]er vascular sheath over a 0.035 inch Glidewire. A 9 mm balloon was advanced into the cephalic vein outflow stenosis and angioplasty was performed. The sheath was then exchanged for a 7 [place] sheath and a 9 mm Lutonix drug [...] and 9 mm Lutonix drug coated balloon. us Shannon Cochran MD IR ORDERABLES Final Result * (ABNORMAL) HEMOGLOBIN A1C (03/31/2019 10:06 AM CDT) HEMOGLOBIN A1C 11.4(H) See comment % 03/31/2019 12:05 PM CDT [facility]OR[facility] EST. AVG GLUCOSE, A1C 280 mg/dL 03/31/2019 12:05 PM T [facility] Blood BLOOD SPECIMEN / Unknown Venipuncture / Unknown 03/31/2019 10:06 AM CDT 03/31/2019 10:33 AM CDT Narrative [facility] [employer] - 03/31/2019 12:05 PM CDT HGB A1C INTERPRETATION NORMAL: <5.7% PRE-DIABETES: 5.7 - 6.4% DIABETES: 6.5% OR GREATER Priya Tomas MD CHEMISTRY ORDERAB LES Final Result [facility] [employer] [facility] CLIA# [id number] [address] [place] [address] [facility] [employer] [facility] CLIA# [id number] [address] [place] [address] * CT ABDOMEN PELVIS WO CONTRAST (03/22/2016 [...] Most Recently Relevant to Health Maintenance Insurance [facility] DUAL COMPLETE HMO [facility] [id number] MEDICAID [place] * Guarantor: [id number] Stacie Account Type Relation to Patient Date of Phone Billing Address Personal/Family [address] [place] [address] RX Blued Medicare Part D Advance Directives For more information, please contact: [phone] * Full Code (Latest Code Status on File) Date Activated Date Inactivated Comments 12/28/2024 5:56 AM 12/28/2024 12:08 PM Care Teams Electron Gun Assembler Relationship Specialty Start Date End Date Osmani Contreras MD [address] [place] [address] PCP - General Family Practice 12/04/15
--- OUTSIDE RECORDS SUMMARY | 2025-09-11 11:36 | XMS_ITS | Encounter Summary ---
Author Organization [facility] Address [address] [place] [address] Care Team Providers Care Trampoline Team Coach Name Role Phone Osmani Contreras MD Primary Care Provider [phone] Encounter Details Date Type Department Care Team (Latest Contact Info) Description 09/16/2004 Outpatient Historical [facility] Endoscopy [place] [address] [place] [address] Theodore Lugo MD [address] [place] [phone] REFLUX ESOPHAGITIS (Primary Dx) Social History Tobacco Use Types Packs/Day Years Used Date Smoking Tobacco: Never Assessed Sex and Gender Information Value Date Recorded Sex Assigned at Not on file Legal Sex Male 3:06 AM DIANETIC COUNSELOR Gender Identity Not on file Sexual Orientation Not on file documented as of this encounter Plan of Treatment Not on file documented as of this encounter Visit Diagnoses Diagnosis Reflux esophagitis- Primary documented in this encounter Additional Health Concerns Infection Onset Date Last Indicated Resolved Time C Diff Comment:Resolved 09/08/2018, Infection Prevention 03/11/16 ([facility]) 03/25/2016 03/25/2016 8 7:46 AM DIANETIC COUNSELOR documented as of this encounter Care Teams Trampoline Team Coach Relationship Specialty Start Date End Date Osmani Contreras MD [address] [place] [address] PCP - General Family Practice 12/04/15 documented as of this encounter
--- OUTSIDE RECORDS SUMMARY | 2025-09-11 11:36 | XMS_ITS | Encounter Summary ---
Author Organization [facility] Address [address] [place] [address] Care Team Providers Care Postulant Name Role Phone Osmani Contreras MD Primary Care Provider [phone] Encounter Details Date Type Department Care Team (Late st Contact Info) Description 01/11/2012 Ancillary Orders [facility] Laboratory Services [place] [address] [place] [address] DM (diabetes mellitus) ([facility]) Social History Tobacco Use Types Packs/Day Years Used Date Smoking Tobacco: Never Assessed Sex and Gender Information Value Date Recorded Sex Assigned at Not on file Legal Sex Male 3:06 AM MARKETING INTELLIGENCE ANALYST Gender Identity Not on file Sexual [...] - 6.2 % 01/12/2012 1:01 AM CDT [facility] EST. AVG GLUCOSE, A1C 355 mg/dL 01/12/2012 1:01 AM CDT [facility] Blood specimen (specimen) 01/11/2012 10:05 PM CDT 01/11/2012 11:13 PM CDT us Osmani Contreras MD CHEMISTRY ORDERABLES Final Resu lt [facility] CLIA # [id number] [address] [facility] [address] [place] [address] documented in this encounter Visit Diagnoses Diagnosis DM (diabetes mellitus) (CMS/[facility]) Type II or unspecified type diabetes mellitus without mention of complication, not stated as uncontrolled documented in this encounter Additional Health Concerns Infection Onset Date Last Indicated Resolved Time C Diff Comment:Resolved 09/08/2018, Infection Prevention 03/11/16 ([facility]) 03/25/2016 03/25/2016 8 7:46 AM MARKETING INTELLIGENCE ANALYST documented as of this encounter Care Teams Postulant Relationship Specialty Start Date End Date Osmani Contreras MD [address] [place] [address] PCP - General Family Practice 12/04/15 documented as of this encounter
--- OUTSIDE RECORDS SUMMARY | 2025-09-11 11:36 | XMS_ITS | Encounter Summary ---
Author Organization [facility] Address [address] [place] [address] Care Team Providers Care Academic Coach Name Role Phone Osmani Contreras MD Primary Care Provider [phone] Encounter Details Date Type Department Care Team (Latest Contact Info) Description 08/15/2004 Outpatient Historical [facility] [address] [place] [phone] Sarwat Naidu MD [address] [place] [phone] HYPERTENSION NOS (Primary Dx) Social History Tobacco Use Types Packs/Day Years Used Date Smoking Tobacco: Never Assessed Sex and Gender Information Value Date Recorded Sex Assigned at Not on file Legal Sex Male 3:06 AM AIRCRAFT POWERPLANT REPAIRER Gender Identity Not on file Sexual Orientation Not on file documented as of this encounter Plan of Treatment Not on file documented as of this encounter Visit Diagnoses Diagnosis Unspecified essential hypertension- Primary documented in this encounter Additional Health Concerns Infection Onset Date Last Indicated Resolved Time C Diff Comment:Resolved 09/08/2018, Infection Prevention 03/11/16 ([facility]) 03/25/2016 03/25/2016 8 7:46 AM AIRCRAFT POWERPLANT REPAIRER documented as of this encounter Care Teams Academic Coach Relationship Specialty Start Date End Date Osmani Contreras MD [address] [place] [address] PCP - General Family Practice 12/04/15 documented as of this encounter
--- OUTSIDE RECORDS SUMMARY | 2025-09-11 11:36 | XMS_ITS | Clinical Summary ---
Author Organization [facility] Address [address] [place] [address] Care Team Providers Care Robot Technician Name Role Phone Osmani Contreras MD Primary Care Provider [phone] Allergies Active Allergy Reactions Criticality Noted Date Comments Diphenhydramine Hcl Other (See Comments) 2015 it makes me mean Ertapenem Unknown 09/06/2018 Procaine Unknown 09/06/2018 Medications cpap medical technologist generalist daily at bedtime. Auto titration CPAP set [...] 18 mcg by inhalation daily. Active OTHER COLLECTIONS ASSISTANT/GRABBER. 1 Each 0 6 Active diltiazem (CARDIZEM [...] with meals. 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 Screw Right: Femur [employer] 07/30/2025 [id number] / / [id number] Screw Hex Int Rc Bl 6.4x115 [id number] - [id number] Implanted:Qty: 1 on 03/30/2019 by Colt Garza MD at [facility] Screw Right: Femur [employer] 01/08/2022 [id number] / / [id number] Screw Trgn Lp 5.0x50mm [id number] - [id number] Implanted:Qty: 1 on 03/30/2019 by Colt Garza MD at [facility] Screw Right: Femur [employer] 02/11/2029 [id number] / / [id number] Screw Trgn Lp 5.0x60mm 8654-1215 - [id number] Implanted:Qty: 1 on 03/30/2019 by Colt Garza MD at [facility] Screw Right: Femur [employer] 10/11/2026 [id number] / / [id number] Nail Implanted:Qty: 1 on 03/30/2019 by Colt Garza MD at [facility] Right: Femur [employer] 08/10/2020 [id number] / / [id number] Explanted Type Area Burrer Marker Axle Device Identifier Shelf Expiration Date Model / Serial / Lot Nail Fan Jud Rt [id number] - [id number] Implanted:Qty: 1 on 09/07/2018 by Colt Garza MD at [facility] Explanted:Qty: 1 on 03/30/2019 by Colt Garza MD at [facility] Nail Right: Femur [employer] 10/04/2025 [id number] / / [id number] Description:INV Screw Hex Int Rc Bl 6.4x110 [id number] - [id number] Implanted:Qty: 1 on 09/07/2018 by Colt Garza MD at [facility] Explanted:Qty: 1 on 03/30/2019 by Colt Garza MD at [facility] Screw Right: Femur [employer] 05/19/2027 [id number] / / [id number] Description:INV Screw Hex Int Rc Bl 6.4x115 [id number] - [id number] Implanted:Qty: 1 on 09/07/2018 by Colt Garza MD at [facility] Explanted:Qty: 1 on 03/30/2019 by Colt Garza MD at [facility] Screw Right: Femur [employer] 12/08/2019 [id number] / / [id number] Description:INV Screw Trgn Lp 5.0x52.5mm 1787-8837 - [id number] Implanted:Qty: 1 on 09/07/2018 by Colt Garza MD at [facility] Explanted:Qty: 1 on 03/30/2019 by Colt Garza MD at [facility] Screw Right: Femur [employer] 03/13/2028 [id number] / / [id number] Description:INV Screw Trgn Lp 5.0x47.5mm 5061-2438 - [id number] Implanted:Qty: 1 on 09/07/2018 by Colt Garza MD at [facility] Explanted:Qty: 1 on 03/30/2019 by Colt Garza MD at [facility] Screw Right: Femur [employer] 02/03/2028 [id number] / / [id number] Description:INV Procedures Procedure Name Priority Date/Time Associated Diagnosis Comments HEMOGLOBIN A1C Stat 03/31/2019 10:06 AM CDT LIPID PANEL Stat 01/04/2012 9:00 PM CDT SICK [ICD-9-CM] from Last 3 Months or Most Recently Relevant to Health Maintenance Results * (ABNORMAL) HEMOGLOBIN A1C (03/31/2019 10:06 AM CDT) HEMOGLOBIN A1C 11.4(H) See comment % 03/31/2019 12:[address] [facility] EST. AVG GLUCOSE, A1C 280 mg/dL 03/31/2019 12:[address] [facility] Blood BLOOD SPECIMEN / Unknown Venipuncture / Unknown 03/31/2019 10:06 AM CDT 03/31/2019 10:33 AM CDT [facility] - 03/31/2019 12:05 PM CDT HGB A1C INTERPRETATION NORMAL: <5.7% PRE-DIABETES: 5.7 - 6.4% DIABETES: 6.5% OR GREATER Priya Tomas MD CHEMISTRY ORDERAB LES Final Result [facility] CLIA# [id number] [facility] [place] [address] * (ABNORMAL) LIPID PANEL (01/04/2012 9:00 PM CDT) CHOLESTEROL 231(H) 130 - 200 mg/dL 01/04/2012 11:32 PM CDT [facility] TRIGLYCERIDE 108 30 - 200 mg/dL 01/04/2012 11:32 PM T [facility] HDL 51 35 - 80 mg/dL 01/04/2012 11:32 PM CDT [facility] LDL CALCULATED 158(H) 0 - 100 mg/dL 01/04/2012 11:32 PM CDT [facility] Blood specimen (specimen) 01/04/2012 9:00 [...] >=190 Based on AHA/NCEP Guidelines Chelsey Garcia Penryn TOOLING SPECIALIST CHEMISTRY ORDERABLES Final Result [facility] CLIA # [id number] [address] [facility] [address] [place] [address] from Last 3 Months or Most Recently Relevant to Health Maintenance Insurance [employer] Medicare Part D [employer] PLUS [id number] O Advance Directives For more information, please contact: [phone] * Full Code (Latest Code Status on [...] 12:46 AM 04/05/2016 7:09 PM Care Teams Robot Technician Relationship Specialty Start Date End Date Osmani Contreras MD [address] [place] [address] PCP - General Family Practice 12/04/15
--- OUTSIDE RECORDS SUMMARY | 2025-09-11 11:36 | XMS_ITS | Encounter Summary ---
Author Organization [facility], [facility] Address [address] [place] [address] Phone Care Team Providers Care Carver Hand Name Role Phone Unavailable Primary Care Provider Unavailabl e Encounter Details Date Type Department Care Team (Late st Contact Info) Description 09/04/2025 Treatment [facility], [facility] [address] [place] [address] Jose Yo NP [address] [place] [address] End stage renal disease; Dependence [...] Dialysis Note - Jose Yo NP - 09/04/2025 12:00 AM CST BASIC NOTE Patient: Abimael Cochran : 1970 Note Author: JOSE YO NP Service Date: 09/04/2025 This patient was personally seen [id number] for a basic visit as part of routine monthly dialysis care for end stage renal disease. Primary cause of renal failure: I12.9 - Hypertensive chronic kidney disease with stage 1 through stage 4 chronic kidney disease, or unspecified chronic kidney disease Attending Agriculture Laboratory Technician: NATE COCHRAN MD Dialysis Location: [facility] Schedule: Shift: 1 OVERVIEW Patient is stable. Patient has no complaints. COMMENTS: Seen on HD. No concerns. Successfully developing button holes HOME MEDICATIONS Current [facility] Outpatient Medications Adult Low Dose Aspirin 81 [...] 1 tablet by mouth twice a day. Cialis 20 mg tablet 1 tablet as [...] day. [hold if SBP less than 120mmhg] losartan 100 mg tablet Take 1 tablet by mouth once a day. metoprolol tartrate 100 mg tablet Take 1 [...] every morning. terazosin 5 mg capsule Take 1 capsule by mouth every night. Toujeo Max U-300 SoloStar 300 unit/mL (3 mL) insulin pen Inject 40 subcutaneously twice a day as directed. trazodone 100 mg tablet Take 4 tablet by mouth at bedtime as needed. [For insomnia] Current [facility] Allergies Allergen: Benadryl Allergy Reaction: Unknown Allergen: ertapenem Reaction: Unknown DIALYSIS PRESCRIPTION Treatment Data Treatment Date: 09/04/2025 started at: 6:50 AM Dialysate / Machine Temp (prescribed): 37.0*C Dialysate / Machine Temp (actual): 37.0*C BFR (prescribed): 500 BFR (average delivered): 410 DFR (prescribed): Manual 800 DFR (average delivered): 800 Prescribed Time: 04:00 Actual Time: 04:06 EDW (kg): 102.3 Dialyzer: FX CorAL 80 Dialysate: 3.0 K, 2.5 Ca, 1.0 Mg, 100 Dextrose (G3251) Sodium: 137 Bicarb: 30 Pre Dialysis Vitals Pre BP Sit: 143/67 Pre Wt (kg): 105.8 EDW Deviation (kg): 3.5 Temp: 97.4*F Post Dialysis Vitals Post BP Sit: 113/63 Post Wt (kg): 102.5 TREATMENT MEDICATIONS ORDERS Heparin Sodium (Porcine) 1,000 Units/mL Catheter Lock Arterial 2500 units Arterial Red Port Every Treatment Post Dialysis 09/27/2024 - 09/26/2025 Heparin Sodium (Porcine) 1,000 Units/mL Catheter Lock Venous 2400 units Venous Blue Port 3X Week Post Dialysis 10/16/2024 - 10/15/2025 Heparin Sodium (Porcine) 1,000 Units/mL Systemic 6000 units IVP Every Treatment 08/31/2025 - 08/30/2026 Mircera 75 mcg IVP Every 2 weeks During Dialysis 07/02/2025 - 07/01/2026 BP AND FLUID ASSESSMENT Acceptable blood pressure. Fluid status acceptable. IDWG (kg) 3.7 - 09/04/2025 0.2 - 09/02/2025 1.5 - 08/31/2025 Post BP Sit 113/63 - 09/04/2025 134/73 - 09/02/2025 135/61 - 08/31/2025 Post Wt (kg) 102.5 - 09/04/2025 102.1 - 09/02/2025 102.9 - 08/31/2025 EDW (kg) 102.3 - 09/04/2025 102.3 - 09/02/2025 102.3 - 08/31/2025 Deviation (kg) 0.2 - 09/04/2025 -0.2 - 09/02/2025 0.6 - 08/31/2025 ADEQUACY ASSESSMENT spKt/V (Daugirdas II) 1.50 (08/15/25) 1.78 (08/03/25) 1.46 (07/11/25) eKdrt/V 1.32 (08/15/25) 1.60 (08/03/25) 1.25 (06/13/25) % Urea Reduction 78 (08/03/25) 72 (07/11/25) 73 (06/13/25) BUN 40 (08/15/25) 23 (08/03/25) 28 (07/18/25) BUN Post Dialysis 11 (08/15/25) 5 (08/03/25) 8 (07/11/25) Creatinine 6.41 (08/29/25) OTH (08/22/25) 6.19 (08/15/25) Bicarbonate (CO2) 24 (08/29/25) OTH (08/22/25) 21 (08/15/25) Sodium 134 (08/15/25) 136 (07/11/25) 137 (06/13/25) ACCESS ASSESSMENT Vascular access examined. AVF/AVG positive thrill/bruit. Current access is permanent and functioning well. AVFistula Standard Left Upper Arm Active (In Use) - 07/11/2025 Placed - 12/28/2024 ANEMIA ASSESSMENT Hemoglobin 10.3 (08/29/25) OTH (08/22/25) 10.7 (08/15/25) Iron Saturation (TSat) 49 (08/15/25) 23 (07/11/25) 34 (06/13/25) Ferritin 493 (08/08/25) 422 (06/13/25) 382 (04/04/25) Iron, Total 98 (08/15/25) Iron 48 (07/11/25) 66 (06/13/25) 27 (05/16/25) TIBC 202 (08/15/25) 210 (07/11/25) 197 (06/13/25) Reticulocyte Hemoglobin 28.4 (06/27/25) 29.3 (03/28/25) 31.1 (02/14/25) MCV 83.3 (08/15/25) 83 (07/11/25) 82 (06/13/25) Platelets 133 (08/15/25) 121 (07/11/25) 142 (06/13/25) BMM ASSESSMENT Calcium 8.4 08/15/25 8.8 07/11/25 8.5 06/13/25 Corrected Calcium 9.0 07/11/25 8.7 06/13/25 9.0 05/16/25 Phosphorus 6.1 08/15/25 4.3 07/11/25 4.4 06/13/25 Calcium Phosphorus Product 38 07/11/25 37 06/13/25 32 05/16/25 PTH 95 06/13/25 40 05/16/25 153 03/14/25 Magnesium 2.0 08/15/25 2.2 07/11/25 2.1 06/13/25 Alkaline Phosphatase 67 06/13/25 53 03/14/25 56 12/15/24 Aluminum 5 06/13/25 ?5 12/15/24 NUTRITION ASSESSMENT Albumin 3.9 08/15/25 3.8 07/11/25 3.8 06/13/25 Potassium 3.9 08/15/25 4.3 07/11/25 3.7 06/13/25 eNPCR 0.70 08/15/25 0.54 08/03/25 0.44 06/13/25 Glucose 130 08/15/25 89 07/11/25 105 06/13/25 ADDITIONAL LABS WBC 5.6 (08/15/25) 5.6 (08/15/25) 4.06 (07/11/25) Hepatitis B Surface Ab 63 (12/15/24) Signed by: JOSE YO NP on 09/04/2025 at 08:21:35 PM Transcribed by: JOSE YO NP on 09/04/2025 at 08:21:35 PM documented in this encounter Plan of Treatment Not on file documented as of this encounter Visit Diagnoses Diagnosis End stage renal disease Dependence on renal dialysis Hypertensive chronic kidney disease with stage 1 through stage 4 chronic kidney disease, or unspecified chronic kidney disease documented in this encounter
--- OUTSIDE RECORDS SUMMARY | 2025-09-11 11:36 | XMS_ITS | Encounter Summary ---
Author Organization [facility], [facility] Address [address] [place] [address] Phone Care Team Providers Care Roll Up Guider Operator Name Role Phone Unavailable Primary Care Provider Unavailabl e Reason for Visit * Reason Comments Med Refill Encounter Details Date Type Department Care Team (Late st Contact Info) Description 07/17/2024 Refill [facility], [facility] [address] [place] [address] Shannon Cochran MD [address] [place] [address] Social History Tobacco Use Types [...] Urea Reduction 69 65 - 80 % [facility] 08/16/2024 08/18/2024 9:1 6 AM OFFICE MACHINE INSTALLER Narrative Resulting Agency Comment Specimen source: Plasma Shannon Cochran MD LAB BLOOD ORDERABLES Final Re sult [facility] See order comments or contact performing lab Unknown, [place] * POST CHEMISTRY (08/16/2024) BUN Post Dialysis 10 6 - 19 mg/dL [facility] 08/16/2024 08/18/2024 9:1 6 AM OFFICE MACHINE INSTALLER Narrative [facility] - 08/18/2024 Unless otherwise specified, test(s) performed at: [facility], [address] [place] [address] MANAGER ADULT: Dar Kang M.D. For any questions, please call customer service at FREQUENCY:MONTHLY Resulting Agency Comment Specimen source: Plasma us Shannon Cochran MD LAB BLOOD ORDERABLES Final Re sult [facility] See order comments or contact performing lab Unknown, [place] * IMMUNO CHEMISTRY (08/16/2024) Pathologist [facility] Hep B Surface Ag Negative Negative [facility] 08/16/2024 08/17/2024 1:3 9 PM OFFICE MACHINE INSTALLER Narrative Resulting Agency Comment Specimen source: Serum us Shannon Cochran MD LAB BLOOD ORDERABLES Final Re sult Performing Organization Address [facility] Co de Phone Number [facility] See order comments or contact performing lab Unknown, [place] * (ABNORMAL) [facility] Chemistry (08/16/2024) Pathologist [facility] BUN 32(H) 6 - 19 mg/dL [facility] [...] [facility] 08/16/2024 08/17/2024 1:3 9 PM OFFICE MACHINE INSTALLER Narrative [facility] - 08/17/2024 Unless otherwise specified, test(s) performed at: [facility], [address] [place] [address] MANAGER ADULT: Dar Kang M.D. For any questions, please call customer service at FREQUENCY:MONTHLY Resulting Agency Comment Specimen source: Serum us Shannon Cochran MD LAB BLOOD ORDERABLES Final Re sult [facility]e [facility] See order comments or contact performing lab [...] [facility] 08/16/2024 08/17/2024 1:4 4 PM OFFICE MACHINE INSTALLER Narrative [facility] - 08/17/2024 Unless otherwise specified, test(s) performed at: [facility], [address] [place] [address] MANAGER ADULT: Dar Kang M.D. For any questions, please call customer service at FREQUENCY:MONTHLY Resulting Agency Comment Specimen source: Blood us Shannon Cochran MD LAB BLOOD ORDERABLES Final Re sult Performing Organization Address [facility] Co de Phone Number [facility] [...] 08/09/2024 Unless otherwise specified, test(s) performed at: [facility], [address] [place] [id number] MANAGER ADULT: Dar Kang M.D. For any questions, please call customer service at FREQUENCY:OTHER Resulting Agency Comment Specimen source: Serum us Shannon Cochran MD LAB BLOOD ORDERABLES Final Re sult Performing Organization Address [facility] Co de Phone Number [facility]PS [facility] See order comments or contact performing lab Unknown, [place] * (ABNORMAL) HEMATOLOGY (08/08/2024) Hemoglobin 9.4(L) 14.0 - 18.0 g/dL [facility] Hemoglobin x 3 28.2(L) 42.0 - 54.0 % [facility] 08/08/2024 08/09/2024 9:4 7 AM CDT Narrative [facility] - 08/09/2024 Unless otherwise specified, test(s) performed at: [facility] [address] MANAGER ADULT: Dar Kang M.D. For any questions, please call customer service at FREQUENCY:OTHER Resulting Agency Comment Specimen source: Blood us Shannon Cochran MD LAB BLOOD ORDERABLES Final Re sult Performing Organization Address [facility] de Phone Number [facility] See order comments or contact performing lab Unknown, [place] * (ABNORMAL) HEMATOLOGY (08/02/2024) [facility] Hemoglobin 9.2(L) 14.0 - 18.0 g/dL [facility] Hemoglobin x 3 27.6(L) 42.0 - 54.0 % [facility] 08/02/2024 08/03/2024 11: 25 AM CDT Narrative [facility] - 08/03/2024 Unless otherwise specified, test(s) performed at: [facility] [place] [phone] MANAGER ADULT: Dar Kang M.D. For any questions, please call customer service at FREQUENCY:OTHER Resulting Agency Comment Specimen source: Blood Shannon Cochran MD LAB BLOOD ORDERABLES Final Re sult Performing Organization Address [facility] de Phone Number [facility] See order comments or contact performing lab Unknown, [place] * IMMUNO CHEMISTRY (08/02/2024) [facility] Hepatitis C Antibody Nonreactive Nonreactive [facility] Comment: No HCV antibody detected. The [...] ORDERABLES Final Re sult Performing Organization Address [facility]/ZIP Co de Phone Number [facility] See order comments or contact [...] 08/03/2024 Unless otherwise specified, test(s) performed at: [facility], [address] [place] [address] MANAGER ADULT: Dar Kang M.D. For any questions, please call customer service at FREQUENCY:OTHER Resulting Agency Comment Specimen source: Serum us Shannon Cochran MD LAB BLOOD ORDERABLES Final Re sult Performing Organization Address [facility] Co de Phone Number [facility] See order comments [...] 07/31/2024 08/01/2024 10: 11 AM CDT Narrative [facility] - 08/01/2024 Unless otherwise specified, test(s) performed at: [facility], [address] [place], [place] [id number] MANAGER ADULT: Dar Kang M.D. For any questions, please call customer service at FREQUENCY:OTHER Resulting Agency Comment Specimen source: Urine Shannon Cochran MD LAB URINE ORDERABLES Final Re sult Performing Organization Address [facility] Co de Phone Number [facility] Finale [facility] See order comments or contact performing lab Unknown, [place] * (ABNORMAL) [facility] Chemistry (07/31/2024) BUN 24(H) 6 - [...] 07/31/2024 08/01/2024 9:2 0 AM CDT Narrative [facility] - 08/01/2024 Unless otherwise specified, test(s) performed at: [facility], [address] [place] [address] MANAGER ADULT: Dar Kang M.D. For any questions, please call customer service at FREQUENCY:OTHER Resulting Agency Comment Specimen source: Serum us Shannon Cochran MD LAB BLOOD ORDERABLES Final Re sult Performing Organization Address [facility]/ZIP Co de Phone Number [facility]e [facility] See order comments or contact performing lab Unknown, [place] * (ABNORMAL) [facility] (07/31/2024) [facility] PTH 391(H) 16 - 80 pg/mL [facility] 07/31/2024 08/01/2024 10: 24 AM CDT Narrative [facility] - 08/01/2024 Unless otherwise specified, test(s) performed at: [facility], [address] [place] [address] MANAGER ADULT: Dar Kang M.D. For any questions, please call customer service at FREQUENCY:OTHER Resulting Agency Comment Specimen source: Plasma us Shannon Cochran MD LAB BLOOD ORDERABLES Final Re sult Performing Organization Address [facility] Co de Phone Number [facility] See order comments or contact performing lab Unknown, [place] * PATIENT INFORMATION (07/31/2024) [facility] Patient BSA 2.65 sq. M. [facility] Comment: Normalized values are calculated using the patient's actual BSA and normalized to the average BSA of 1.73m2. 07/31/2024 08/01/2024 9:2 0 AM CDT Narrative [facility] - 08/01/2024 Unless otherwise specified, test(s) performed at: [facility] [address] MANAGER ADULT: Dar Kang M.D. For any questions, please call customer service at FREQUENCY:OTHER Resulting Agency Comment Specimen source: PD Fluid us Shannon Cochran MD LAB BLOOD ORDERABLES Final Re sult Performing Organization Address [facility]/ZIP Co de Phone Number [facility] See order comments or contact performing lab Unknown, [place] * PATIENT INFORMATION (07/31/2024) [facility] Patient Weight 127.3 [facility] Patient Height 203.0 [facility] Amputee Status NO [facility] Amputee Parts NONE [facility] Urine Volume 1,700 [facility] Collection Interval, Ur 24.0 [facility] 07/31/2024 07/31/2024 Narrative [facility]PS [facility] - 08/01/2024 Unless otherwise specified, test(s) performed at: [facility], [address] [place] [address] MANAGER ADULT: Dar Kang M.D. For any questions, please call customer service at FREQUENCY:OTHER Resulting Agency Comment Specimen source: PD Fluid Shannon Cochran MD LAB BLOOD ORDERABLES Final Re sult [facility] See order comments or contact performing lab Unknown, [place] * (ABNORMAL) HEMATOLOGY (07/26/2024) Pathologist [facility] Hemoglobin 9.6(L) 14.0 - 18.0 g/dL [facility] Hemoglobin x 3 28.8(L) 42.0 - 54.0 % [facility] Reticulocyte Hemoglobin 32.8(H) 25.4 - 31.8 pg [facility] 07/26/2024 07/27/2024 1:0 8 PM CDT Narrative [facility] - 07/27/2024 Unless otherwise specified, test(s) performed at: [facility], [address] [place] [id number] MANAGER ADULT: Dar Kang M.D. For any questions, please [...] 07/26/2024 07/27/2024 8:5 6 AM CDT Narrative [facility] - 07/27/2024 Unless otherwise specified, test(s) performed at: [facility], [address] [place] [address] MANAGER ADULT: Dar Kang M.D. For any questions, please call customer service at FREQUENCY:OTHER Resulting Agency Comment Specimen source: Serum us Shannon Cochran MD LAB BLOOD ORDERABLES Final Re sult [facility] See order comments or contact performing lab Unknown, [place] * (ABNORMAL) [facility] Chemistry (07/19/2024) BUN 29(H) 6 - 19 [...] 07/19/2024 07/20/2024 10: 58 AM CDT Narrative [facility] - 07/20/2024 Unless otherwise specified, test(s) performed at: [facility] [address] MANAGER ADULT: Dar Kang M.D. For any questions, please call customer service at FREQUENCY:MONTHLY Resulting Agency Comment Specimen source: Serum Shannon Cochran MD LAB BLOOD ORDERABLES Final Re sult Performing Organization Address [facility] de Phone Number [facility] See order comments or contact performing lab Unknown, [place] * TRACE ELEMENTS (07/19/2024) Pathologist [facility] Aluminum <5 0 - 10 mcg/L [facility] Comment: This test was developed and its performance characteristics determined by [facility]. It has not been cleared or approved by the FDA. The laboratory is regulated under CLIA as qualified to perform high complexity testing. This test is used for clinical purposes. It should not be regarded as investigational or for research. 07/19/2024 07/20/2024 10: 49 AM CDT Narrative [facility] - 07/20/2024 Unless otherwise specified, test(s) performed at: [facility], [address] [place] [address] MANAGER ADULT: Dar Kang M.D. For any questions, please call customer service at FREQUENCY:MONTHLY Resulting Agency Comment Specimen source: Serum Shannon Cochran MD LAB BLOOD ORDERABLES Final Re [facility] Performing Organization Address [facility] de Phone Number [facility] See order comments or contact performing lab Unknown, [place] * (ABNORMAL) HEMATOLOGY (07/19/2024) Pathologist [facility] Neutrophils 78.3(H) 40.0 - 75.0 % [facility] [...] 07/19/2024 07/20/2024 11: 32 AM CDT Narrative [facility] - 07/20/2024 Unless otherwise specified, test(s) performed at: [facility], [address] [place] [address] MANAGER ADULT: Dar Kang M.D. For any questions, please call customer service at FREQUENCY:MONTHLY Resulting Agency Comment Specimen source: Blood us Shannon Cochran MD LAB BLOOD ORDERABLES Final Re sult [facility] See order comments or contact performing lab [facility], [place] * IMMUNO CHEMISTRY (07/17/2024) Hepatitis B Surface Ab <10 mIU/mL [facility] Comment: Reference Range: <10 mIU/mL Non-Immune >=10 mIU/mL Immune The magnitude of the measured result above 10 mIU/mL is not indicative of the total amount of antibody present. Custom Exception Hep B Core Total Ab Negative Negative [facility] Comment: Hep B Core Ab, Total appears during the acute infection stage and remains reactive/positive throughout the recovery stage. The above test result was obtained using Siemens Centaur XP chemiluminescent method. Results obtained with different assay methods or kits cannot be used interchangeably. Hep B Surface Ag Negative Negative [facility] 07/17/2024 07/18/2024 11: 19 AM CDT Narrative [facility] Finale [facility] - 07/18/2024 Unless otherwise specified, test(s) performed at: [facility], [address] [place] [id number] MANAGER ADULT: Dar Kang M.D. For any questions, please call customer service at FREQUENCY:OTHER Resulting Agency Comment Specimen source: Serum us Shannon Cochran MD LAB BLOOD ORDERABLES Edited R esult - Final APS [facility] See order comments or contact performing lab Unknown, [place] documented in this encounter Visit Diagnoses Not on filedocumented in this encounter
--- OUTSIDE RECORDS SUMMARY | 2025-09-11 11:36 | XMS_ITS | Encounter Summary ---
Author Organization [facility] Address [address] [place] [address] Care Team Providers Care Apartment Leasing Agent Name Role Phone Osmani Contreras MD Primary Care Provider [phone] Encounter Details Date Type Department Care Team (Latest Contact Info) Description 08/04/1999 Outpatient Historical [facility] Bharathi Walker MD [address] [facility] [address] [place] [address] Abdominal pain, right upper quadrant (Primary Dx); Abdominal pain, epigastric Social History Tobacco Use Types Packs/Day Years Used Date Smoking Tobacco: Never Assessed Sex and Gender Information Value Date Recorded Sex Assigned at Not on file Legal Sex Male 3:06 AM DEATH CLAIM EXAMINER Gender Identity Not on file Sexual Orientation Not on file documented as of this encounter Plan of Treatment Not on file documented as of this encounter Visit Diagnoses Diagnosis Abdominal pain, right upper quadrant- Primary Abdominal pain, epigastric documented in this encounter Additional Health Concerns Infection Onset Date Last Indicated Resolved Time C Diff Comment:Resolved 09/08/2018, Infection Prevention 03/11/16 ([facility]) 03/25/2016 03/25/2016 8 7:46 AM DEATH CLAIM EXAMINER documented as of this encounter Care Teams Apartment Leasing Agent Relationship Specialty Start Date End Date Osmani Contreras MD [address] [place] [address] PCP - General Family Practice 12/04/15 documented as of this encounter
--- OUTSIDE RECORDS SUMMARY | 2025-09-11 11:36 | XMS_ITS | Encounter Summary ---
Author Organization [facility] Address [address] [facility] [place] [address] Care Team Providers Care Geomorphology Teacher Name Role Phone Osmani Contreras MD Primary Care Provider [phone] Encounter Details Date Type Department Care Team (Latest Contact Info) Description 09/08/2004 Outpatient Historical [facility] [address] [place] [id number] Sarwat Naidu MD [address] [place] [phone] ABDOMINAL PAIN UNSPEC SITE (Primary Dx); HYPERTENSION NOS Social History Tobacco Use Types Packs/Day Years Used Date Smoking Tobacco: Never Assessed Sex and Gender Information Value Date Recorded Sex Assigned at Not on file Legal Sex Male 3:06 AM FOUNDER Gender Identity Not on file Sexual Orientation Not on file documented as of this encounter Plan of Treatment Not on file documented as of this encounter Visit Diagnoses Diagnosis Abdominal pain, unspecified site- Primary Unspecified essential hypertension documented in this encounter Additional Health Concerns Infection Onset Date Last Indicated Resolved Time C Diff Comment:Resolved 09/08/2018, Infection Prevention 03/11/16 ([facility]) 03/25/2016 03/25/2016 8 7:46 AM FOUNDER documented as of this encounter Care Teams Geomorphology Teacher Relationship Specialty Start Date End Date Osmani Contreras MD [address] [place] [address] PCP - General Family Practice 12/04/15 documented as of this encounter
--- OUTSIDE RECORDS SUMMARY | 2025-09-11 11:36 | XMS_ITS | Encounter Summary ---
Author Organization [facility] Address [address] [place] [address] Care Team Providers Care Slab Installer Name Role Phone Osmani Contreras MD Primary Care Provider [phone] Encounter Details Date Type Department Care Team (Latest Contact Info) Description 09/16/2004 Outpatient [facility] [place] [address] [facility] [address] [place] [address] Theodore Lugo MD [address] [place] [phone] ABDOMINAL PAIN EPIGASTRIC (Primary Dx); HEARTBURN; REFLUX ESOPHAGITIS Social History Tobacco Use Types Packs/Day Years Used Date Smoking Tobacco: Never Assessed Sex and Gender Information Value Date Recorded Sex Assigned at Not on file 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 Sex Male 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 Gender Identity Not on file Sexual Orientation Not on file documented as of this encounter Plan of Treatment Not on file documented as of this encounter Visit Diagnoses Diagnosis Abdominal pain, epigastric- Primary Heartburn Reflux esophagitis documented in this encounter Additional Health Concerns Infection Onset Date Last Indicated Resolved Time C Diff Comment:Resolved 09/08/2018, Infection Prevention 03/11/16 ([facility]) 03/25/2016 03/25/2016 8 7:46 AM HEALTH OCCUPATIONS INSTRUCTOR documented as of this encounter Care Teams Slab Installer Relationship Specialty Start Date End Date Osmani Contreras MD [address] [place] [address] PCP - General Family Practice 12/04/15 documented as of this encounter
--- OUTSIDE RECORDS SUMMARY | 2025-09-11 11:36 | XMS_ITS | Encounter Summary ---
Author Organization [facility] Address [address] [place] [address] Care Team Providers Care Commercial Intern Name Role Phone Osmani Contreras MD Primary Care Provider [phone] Encounter Details Date Type Department Care Team (Late st Contact Info) Description 01/04/[address] [facility] Laboratory Services [place] [address] [place] [address] Sick Social History Tobacco Use Types Packs/Day Years Used Date Smoking Tobacco: Never Assessed Sex and Gender Information Value Date Recorded Sex Assigned at Not on file Legal Sex Male 3:06 AM MOBILE DEVICE ENGINEER Gender Identity Not on file Sexual [...] growth) Streptococcus salivarius(A) 01/06/2012 6:27 PM CDT [facility] GRAM STAIN Few Gram positive cocci 01/06/2012 6:27 PM CDT [facility] GRAM STAIN No WBC's observed 012 6:27 PM CDT [facility] Wound drainage 01/04/2012 9: 00 PM CDT 01/04/2012 11:02 PM CDT Narrative [facility] - 01/06/2012 6:27 PM CDT Left great toe. Sensitivity not normally preformed. Chelsey Prince [facility] MICROBIOLOGY - GENERAL ORDE LANE Final Result [facility] Foundation [facility] CLIA # [id number] [address] [place] [address] * (ABNORMAL) CBC WITH DIFFERENTIAL (01/04/2012 9:00 PM CDT) WBC 7.6 4.2 - 9.1 K/uL 01/04/2012 11:09 PM CDT [facility] RBC 5.33 4.63 - 6.08 M/uL 01/04/2012 11:09 PM [facility] Foundation [facility] HEMOGLOBIN 15.3 13.7 - 17.5 g/dL 01/04/2012 11:09 PM [facility] HEMATOCRIT 42.0 40.1 - 51.0 % 01/04/2012 11:09 PM [address] [facility] MCV 78.8(L) 79.0 - 92.2 fL 01/04/2012 11:09 PM CD[address] [facility] MCH 28.7 25.7 - 32.2 pg 01/04/2012 11:09 [facility] MCHC 36.4 32.3 - 36.5 g/dL 01/04/2012 11:09 PM [facility] RDW 12.8 11.0 - 14.5 % 01/04/2012 11:09 PM CD[address] [facility] RDW-STDEV 36.6 fL 01/04/2012 11:09 PM CDT [facility] [place] PLATELETS 265 130 - 400 K/uL 01/04/2012 11:09 PM CDT [facility] [place] MPV 10.6 10.0 - 14.8 fL 01/04/2012 11:09 PM CDT [facility] [place] NEUTROPHILS 49 34 - 68 % 01/04/2012 11:09 PM CDT [facility] [place] LYMPHOCYTES 40 22 - 53 % 01/04/2012 11:09 PM CDT [facility] [place] MONOCYTES 9 5 - 12 % 01/04/2012 11:09 PM CDT [facility] [place] EOSINOPHILS 2 1 - 7 % 01/04/2012 11:09 PM CDT [facility] [place] BASOPHILS 1 0 - 1 % 01/04/2012 11:09 PM CDT [facility] [place] NEUTROPHIL ABSOLUTE 3.72 1.78 - 5.38 K/uL 01/04/2012 11:09 PM CDT [facility] [place] LYMPHOCYTE ABSOLUTE 3.03 1.20 - 3.40 K/uL 01/04/2012 11:09 PM CDT [facility] [place] MONOCYTE ABSOLUTE 0.65 0.30 - 0.82 K/uL 01/04/2012 11:09 PM CDT [facility] [place] EOSINOPHIL ABSOLUTE 0.11 0.04 - 0.54 K/uL 01/04/2012 11:09 PM CDT [facility] [place] BASOPHILS ABSOLUTE 0.04 0.01 - 0.08 K/uL 01/04/2012 11:09 PM CDT [facility] [place] Blood specimen (specimen) 01/04/2012 9:00 PM CDT 01/04/2012 11:02 PM CDT Chelsey Prince CORPORATE TRAINER HEMATOLOGY ORDERABLES Final Result [facility] [place] CLIA # [id number] [address] [place] [address] * (ABNORMAL) LIPID PANEL (01/04/2012 9:00 PM CDT) CHOLESTEROL 231(H) 130 - 200 mg/dL 01/04/2012 11:32 PM CDT [facility] TRIGLYCERIDE 108 30 - 200 mg/dL 01/04/2012 11:32 PM CDT [facility] HDL 51 35 - 80 mg/dL 01/04/2012 11:32 PM CDT [facility] LDL CALCULATED 158(H) 0 - 100 mg/dL 01/04/2012 11:32 PM T [facility] Blood specimen (specimen) 01/04/2012 9:00 PM CDT 01/04/2012 11:02 PM CDT Narrative [facility] - 01/04/2012 11:32 PM CDT TOTAL CHOLESTEROL mg/dL Desirable <200 Borderline high 200-239 High >=240 TRIGLYCERIDES mg/dL Normal <150 Borderline high 150-199 High 200-499 Very high >=500 HDL CHOLESTEROL mg/dL Low <40 Normal 40-60 Desirable >60 LDL CHOLESTEROL mg/dL Optimal <100 Low risk 100-129 Borderline high 130-159 High 160-189 Very high >=190 Based on AHA/NCEP Guidelines Chelsey Prince CORPORATE TRAINER CHEMISTRY ORDERABLES Final Result [facility] CLIA # [id number] [address] [place] [address] * (ABNORMAL) BASIC METABOLIC PANEL (01/04/2012 9:00 PM CDT) SODIUM 134(L) 136 - 145 mmol/L 01/04/2012 11:32 PM T [facility] Foundation [facility] POTASSIUM 3.7 3.5 - 5.1 mmol/L 01/04/2012 11:[address] [facility] CHLORIDE 97(L) 98 - 107 mmol/L 01/04/2012 11:32 PM T [facility] CO2 29 21 - 32 mmol/L 01/04/2012 11:32 PM CDT [facility] CALCIUM 9.2 8.5 - 10.1 mg/dL 01/04/2012 11:32 PM T [facility] BUN 19(H) 7 - 18 mg/dL 01/04/2012 11:32 PM CDT [facility] CREATININE 0.90 0.60 - 1.30 mg/dL 01/04/2012 11:32 PM T [facility] GLUCOSE 234(H) 74 - 106 mg/dL 01/04/2012 11:32 PM T [facility] GFR 93 >=60 mL/min/1.7 3 sq meter 01/04/2012 11:32 PM T [facility] GFR, 113 >=60 mL/min/1.7 3 sq meter 01/04/2012 11:32 PM T [facility] Blood specimen (specimen) 01/04/2012 9:00 PM CDT 01/04/2012 11:02 PM CDT Narrative [facility] - 01/04/2012 11:32 PM CDT eGFR has [...] patients with severe liver disease. Chelsey Prince CORPORATE TRAINER CHEMISTRY ORDERABLES Final Result Performing Organization Address City/State/[facility] Co de Phone Number [facility] [id number] [address] [place] [address] documented in this encounter Visit Diagnoses Diagnosis Sick Other unknown and unspecified cause of morbidity or mortality documented in this encounter Additional Health Concerns Infection Onset Date Last Indicated Resolved Time C Diff Comment:Resolved 09/08/2018, Infection Prevention 03/11/16 ([facility]) 03/25/2016 03/25/2016 8 7:46 AM MOBILE DEVICE ENGINEER documented as of this encounter Care Teams Commercial Intern Relationship Specialty Start Date End Date Osmani Contreras MD [address] [place] [address] PCP - General Family Practice 12/04/15 documented as of this encounter
--- OUTSIDE RECORDS SUMMARY | 2025-09-11 11:36 | XMS_ITS | Encounter Summary ---
Author Organization [facility] Address [address] [place] [address] Care Team Providers Care Toddler Caregiver Name Role Phone Osmani Contreras MD Primary Care Provider [phone] Encounter Details Date Type Department Care Team (Latest Contact Info) Description 08/20/1999 Outpatient Historical [facility] Bharathi Walker MD [address] [facility] [address] [place] [address] Hernia of unspecified site of abdominal cavity without mention of obstruction or gangrene (Primary Dx) Social History Tobacco Use Types Packs/Day Years Used Date Smoking Tobacco: Never Assessed Sex and Gender Information Value Date Recorded Sex Assigned at Not on file Legal Sex Male 3:06 AM 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
--- OUTSIDE RECORDS SUMMARY | 2025-09-11 11:36 | XMS_ITS | Encounter Summary ---
Author Organization [facility] Address [address] [place] [address] Care Team Providers Care Big Data Solutions Architect Name Role Phone Osmani Contreras MD Primary Care Provider Encounter Details Date Type Department Care Team ([facility] st Contact Info) Description 07/25/2004 Outpatient Historical [facility] [address] [place] [phone] Sarwat Naidu MD [address] [place] [phone] Social History Tobacco Use Types Packs/Day Years Used Date Smoking Tobacco: Never Assessed Sex and Gender Information Value Date Recorded Sex Assigned at Not on file Legal Sex Male 3:06 AM INFORMATION ASSOC Gender Identity Not on file Sexual Orientation Not on file documented as of this encounter Plan of Treatment Not on file documented as of this encounter Visit Diagnoses Not on filedocumented in this encounter Additional Health Concerns Infection Onset Date Last Indicated Resolved Time C Diff Comment:Resolved 09/08/2018, Infection Prevention 03/11/16 ([facility]) 03/25/2016 03/25/2016 8 7:46 AM INFORMATION ASSOC documented as of this encounter Care Teams Big Data Solutions Architect Relationship Specialty Start Date End Date Osmani Contreras MD [address] [place] [address] PCP - General Family Practice 12/04/15 documented as of this encounter
--- OUTSIDE RECORDS SUMMARY | 2025-09-11 11:36 | XMS_ITS | Encounter Summary ---
Author Organization [facility], [facility] Address [address] [place] [address] Phone Care Team Providers Care Big 6 Dealer Name Role Phone Unavailable Primary Care Provider Unavailabl e Encounter Details Date Type Department Care Team (Late st Contact Info) Description 09/04/2025 Orders Only [facility] [employer] [address] [place] [address] Shannon Cochran MD [address] [place] [address] Social History Tobacco Use Types [...] Date/Time Associated Diagnosis Comments HEMOGLOBIN Routine 09/04/2025 CREATININE, SERUM Routine 09/04/2025 CHLORIDE Routine 09/04/2025 CO2, TOTAL Routine 09/04/2025 documented in this encounter Results * (ABNORMAL) Hemoglobin (09/04/2025) Hemoglobin 10.6(L) 13.2 - 14.0 g/dL [facility] 09/04/2025 09/03/2025 12: 17 PM CUSTODIAN MANAGER Narrative Resulting Agency Comment Performing Organization Information: Site ID: [id number] Name: [facility] Address: [address] [place] [phone] Director: Sathya Coronado MD Shannon Cochran MD LAB BLOOD ORDERABLES Final Re sult Performing Organization Address [facility] Co de Phone Number [facility] [id number] [place] [phone] * CO2 (09/04/2025) Bicarbonate (CO2) 23 20 - 29 mmol/L [facility] 09/04/2025 09/03/2025 12: 17 PM CUSTODIAN MANAGER Narrative Resulting Agency Comment Performing Organization Information: Site ID: [id number] Name: [facility] Address: [address] [place] [phone] Director: Sathya Coronado MD us Shannon Cochran MD LAB BLOOD ORDERABLES Final Re sult Performing Organization Address [facility] Co de Phone Number [facility] [address] [place] [phone] * Chloride (09/04/2025) Chloride 105 98 - 110 mmol/L [facility] 09/04/2025 09/03/2025 12: 17 PM CUSTODIAN MANAGER Narrative Resulting Agency Comment Performing Organization Information: Site ID: [place] Name: [facility] Address: [address] [place] [phone] Director: Sathya Coronado MD us Shannon Cochran MD LAB BLOOD ORDERABLES Final Re sult Performing Organization Address [facility] Co de Phone Number [facility] [address] [place] [phone] * (ABNORMAL) Creatinine, serum (09/04/2025) Creatinine 5.42(H) 0.70 - 1.30 mg/dL [facility] 09/04/2025 09/03/2025 12: 17 PM CUSTODIAN MANAGER Narrative Resulting Agency Comment Performing Organization Information: Site ID: [id number] Name: [facility] Address: [address] [place] [address] Director: Sathya Coronado MD us Shannon Cochran MD LAB BLOOD ORDERABLES Final Re sult [facility] [address] [place] [address] documented in this encounter Visit Diagnoses Not on filedocumented in this encounter
--- NOTE | 2025-09-11 12:43 | ECG_ITS ---
[facility]: 2025[facility]11 Pat Name: Abimael Cochran Department: Room: Gender: Male Hose Builder: : 1970 Requested By: Leandro Jones Order Number: [id number] Benjamin MD: Kareem Ennis M.D. Measurements Intervals [place] Rate: 68 P: 57 MN: 221 QRS: -21 QRSD: 121 T: 44 QT: 451 QTc: 482 Interpretive Statements SINUS RHYTHM WITH FIRST DEGREE AV BLOCK BORDERLINE LEFT AXIS DEVIATION [QRS AXIS < -20] MODERATE INTRAVENTRICULAR CONDUCTION DELAY [110+ ms QRS DURATION] PROLONGED QT INTERVAL Compared to ECG 07/23/2025 07:50:57 First degree AV block now present Intraventricular conduction delay now present Prolonged QT interval now present T-wave abnormality no longer present Myocardial infarct finding no longer present Electronically Signed On 09-11-2025 18:57:19 GUM COOK by Kareem Ennis M.D. [email or web address]
[2025-09-11 13:23] VITALS: BP 153/83; PULSE 69; O2SAT 92
== END 2025-09-11 13:24 | disposition home or self-care (01) ==
PROVIDERS: Emergency Provider Family Medicine; PCP Nurse Practitioner Family
DX: S32.029A Unspecified fracture of second lumbar vertebra, initial encounter for closed fracture (principal); W19.XXXA Unspecified fall, initial encounter; Z79.02 Long term (current) use of antithrombotics/antiplatelets; Z79.82 Long term (current) use of aspirin; Z87.891 Personal history of nicotine dependence; E78.5 Hyperlipidemia, unspecified; E11.22 Type 2 diabetes mellitus with diabetic chronic kidney disease; I12.9 Hypertensive chronic kidney disease with stage 1 through stage 4 chronic kidney disease, or unspecified chronic kidney disease; N18.9 Chronic kidney disease, unspecified
CPT/HCPCS: 72131; 73521; 93005; 99284

== ENCOUNTER → 2025-09-20 15:31 | Outpatient (BNVA) | payer MEDICARE, MEDICAID, SELFPAY ==
[2025-01-03 10:37] VITALS: BP 146/81; BMI 28.8
== END ==
PROVIDERS: PCP Nurse Practitioner Family; Visit Provider Orthopaedic Surgery
DX: M54.9 Dorsalgia, unspecified (principal); M54.50 Low back pain, unspecified; M25.561 Pain in right knee
CPT/HCPCS: 72100; 73560; 73565; 99204

== ENCOUNTER 2025-09-25 16:06 | Outpatient (CLI) | payer MEDICARE, MEDICAID, SELFPAY ==
[2025-01-03 10:37] VITALS: BP 146/81; BMI 28.8
--- NOTE | 2025-09-25 16:00 | MR_ITS ---
WS: [id number] MRI LUMBAR SPINE NONCONTRAST HISTORY: Pain, fall 2 weeks ago. COMPARISON: Lumbar spine MRI 04/03/2024, radiograph 09/20/2025, CT 09/11/2025 TECHNIQUE: Sagittal and axial multisequence imaging is submitted. RIGHT lateral curvature lumbar spine. Ankylosis across the L2-3 disc space is stable. Complete loss of the L2 disc space. Large anterior bridging osteophyte between several of the lumbar vertebral bodies. No marrow edema or acute fracture is noted in the lumbar spine. Disc spaces are severely narrowed and desiccated. Conus terminates normally at L1-2 disc level. L1-L2: No significant stenosis. Mild LEFT foraminal stenosis with facet joint arthritis. No change. L2-L3: Posterior laminectomy defect. Thecal sac is being deformed with displacement of the nerve roots, similar to the prior study. No disc protrusions. Moderate to severe LEFT foraminal stenosis and mild RIGHT foraminal stenosis. Stenosis has slightly progressed. L3-L4: Facet joint arthritis with mild encroachment upon the thecal sac. Very mild central stenosis with mild bilateral foraminal stenosis, no change. L4-L5: Diffuse annular disc bulge with osteophytic ridging and moderate facet arthritis. Mild bilateral foraminal stenosis. A slight disc encroachment upon the ventral thecal sac. L5-S1: Diffuse disc bulging with marked facet and ligamentum flavum hypertrophy. Mild bilateral foraminal stenosis, RIGHT greater than LEFT. Marked atrophy of the LEFT psoas muscle. Paraspinal muscles are also atrophied. MR/MR lumbar spine wo con* [id number] IMPRESSION: 1. No acute lumbar spine fracture. 2. Bony fusion across the L2-3 disc space. 3. Laminectomy defect at L2-3. 4. No high-grade central stenosis. Mild central stenosis at L3-4. 5. Mild progression of foraminal stenosis at L2-3. There is moderate to severe LEFT and mild RIGHT foraminal stenosis. 6. Mild LEFT foraminal stenosis at L1-2. 7. Mild bilateral foraminal stenosis at L5-S1, RIGHT greater than LEFT.
== END 2025-09-25 16:07 | disposition home or self-care (01) ==
LOC: RAD 16:07
PROVIDERS: PCP Nurse Practitioner Family; Visit Provider Orthopaedic Surgery
DX: M51.369 Other intervertebral disc degeneration, lumbar region without mention of lumbar back pain or lower extremity pain (principal); M47.816 Spondylosis without myelopathy or radiculopathy, lumbar region; M51.26 Other intervertebral disc displacement, lumbar region; M62.58 Muscle wasting and atrophy, not elsewhere classified, other site; M43.26 Fusion of spine, lumbar region; Z98.1 Arthrodesis status; M48.061 Spinal stenosis, lumbar region without neurogenic claudication; M99.63 Osseous and subluxation stenosis of intervertebral foramina of lumbar region
CPT/HCPCS: 72148

== ENCOUNTER 2025-10-07 12:09 | Emergency (ER) | payer MEDICARE, MEDICAID, SELFPAY ==
--- OUTSIDE RECORDS SUMMARY | 2024-08-05 03:00 | XMS_ITS ---
Author Organization [facility] Address [address] [place] [address] Care Team Providers Care Legal Counsel Name Role Phone Horne Funmilayo CANTU Primary Care Provider Unavailab Alverto Crocker Unavailable [phone] Migration, Provider Unavailable Unavailable REASON FOR VISIT [facility] Encounters Encounter Location Date Provider Diagnosis Migrated_Facility 0 0 08/05/2024 Provider Migration Plan Of Treatment No Information Progress Notes * Abimael SAHU GDOB:1970 (55 yo M)Acc No.[id number]:08/05/2024 Patient: Jose Abimael ARAUJO :1970 A ge:54 Y S ex:Male Address:[address] [place], [id number] Subjective: * Chief Complaints: * E MR[facility] * * Date:
--- OUTSIDE RECORDS SUMMARY | 2024-08-06 03:00 | XMS_ITS ---
Author Organization [facility] Address [address] [place] [address] Care Team Providers Care Bread Wrapping Machine Feeder Name Role Phone Horne Funmilayo CANTU Primary Care Provider Unavailab Alverto Crocker Unavailable [phone] Migration, Provider Unavailable Unavailable Allergies Allergen (clinical [...] * Abimael SAHU GDOB:1970 (55 yo M)Acc No.[id number]:08/06/2024 Patient: Jose Abimael ARAUJO Stacie :1970 A ge:54 Y S ex:Male Address:[address] [place], [address] Subjective: * Chief Complaints: * E MR-Marcellus * Allergies: N ovocain: AllergyBenadryl: Allergy - Criticality HighINVanz: AllergyHydralazine: incontienence - Allergy * * Date:
[2025-01-03 10:37] VITALS: BP 146/81; BMI 28.8
[2025-10-07 12:10] VITALS: BP 194/110; PULSE 102; TEMP 36.8; O2SAT 92; BMI 24.7
--- NOTE | 2025-10-07 12:15 | ECG_ITS ---
[facility] Date: 2025-10-07 Pat Name: Abimael Cochran Department: Room: Gender: Male Car Hiker: : 1970 Requested By: Leidy Bear Order Number: [id number] Benjamin MD: ROMIE KEATING Measurements Intervals [place] Rate: 98 P: 41 MS: 168 QRS: -12 QRSD: 108 T: 56 QT: 381 QTc: 487 Interpretive Statements SINUS RHYTHM POSSIBLE LEFT ATRIAL ENLARGEMENT [-0.1mV P-WAVE IN V1/V2] SEPTAL MYOCARDIAL INFARCTION , OF INDETERMINATE AGE [40+ ms Q WAVE IN V1/V2] Compared to ECG 09/11/2025 12:43:56 Myocardial infarct finding now present First degree AV block no longer present Intraventricular conduction delay no longer present Prolonged QT interval no longer present Electronically Signed On 10-07-2025 23:18:56 WELDER GAS by ROMIE KEATING [email or web address]
--- OUTSIDE RECORDS SUMMARY | 2025-10-07 12:16 | XMS_ITS | Encounter Summary ---
Author Organization [facility] [employer], [facility] Address [address] [place] [address] Phone Care Team Providers Care Psychiatric Registered Nurse Name Role Phone Unavailable Primary Care Provider Unavailabl e Encounter Details Date Type Department Care Team (Late st Contact Info) Description 09/26/2025 Orders Only [facility] [employer] [address] [place] [address] Shannon Cochran MD [address] [place] [address] Social History Tobacco Use Types Packs/Day Years Used Date Smoking Tobacco: Former Cigarettes 0 Q uit: 10/11/2012 Sex and Gender Information Value Date Recorded Sex Assigned at Not on file Legal Sex Male 12:44 PM EST Gender Identity Not on file Sexual Orientation Not on file documented as of this encounter Plan of Treatment Pending Results Name Type Priority Associated Diagnoses Date /Time Creatinine, serum Lab Routine 025 Chloride Lab Routine 09/26/2025 CO2 Lab Routine 09/26/2025 documented as of this encounter Procedures Procedure Name Priority Date/Time Associated Diagnosis Comments HEMOGLOBIN Routine 09/26/2025 documented in this encounter Results * Hemoglobin (09/26/2025) Hemoglobin OTH g/dL [facility] Comment: TEST NOT PERFORMED. An electronic test request was transmitted, but no specimen was received by the laboratory. Test has been cancelled. 09/26/2025 09/25/2025 7:5 0 AM SLIDE FASTENERS INSPECTOR Narrative Resulting Agency Comment Performing Organization Information: Site ID: [place] Name: [facility] Address: [address] [facility] [place] [address] Director: Sathya Coronado MD us Shannon Cochran MD LAB BLOOD ORDERABLES Final Re sult [facility] [address] [place] [address] documented in this encounter Visit Diagnoses Not on filedocumented in this encounter
--- OUTSIDE RECORDS SUMMARY | 2025-10-07 12:16 | XMS_ITS | Encounter Summary ---
Author Organization [place] [facility] [employer], [facility] Address [address] [place] [address] Phone Care Team Providers Care Restorer Paper And Prints Name Role Phone Unavailable Primary Care Provider Unavailabl e Encounter Details Date Type Department Care Team (Late st Contact Info) Description 04/23/2025 TCM in D[facility] [employer], [facility] [address] [place] [address] Vania Dudley NP [address] [place] [address] Social History Tobacco Use Types [...] 04/23/2025 The patient was seen for a [id number] visit as part of Transitional Care Management services. Primary cause of renal failure: I12.9 - Hypertensive chronic kidney disease with stage 1 through stage 4 chronic kidney disease, or unspecified chronic kidney disease Attending Missile Inspector Preflight: NATE SAUH Dialysis Location: [facility] Schedule: Shift: 1 INTERACTIVE CONTACT [...] 97.6*F Current Dialysis Vitals BP Sit: 181/88 AP/PERSONNEL AND PAYROLL TECHNICIAN: -- Pulse: 71 CARE COORDINATION Post-discharge follow-up appointments reviewed with the patient. Established or re-established referrals. COMMENTS: fistulogram IMPRESSION & PLAN COMMENTS: CP- heart cath s/p stent placement. Started Im[facility] ESRD- using CVC. Will have fistulogram done soon. HD per MWF. VISIT DIAGNOSES CPT Code 01170 - High complexity, seen within 7 days [...]
--- OUTSIDE RECORDS SUMMARY | 2025-10-07 12:16 | XMS_ITS | Encounter Summary ---
Author Organization [place] [facility] [employer], [facility] Address [address] [facility] [address] [place] [address] Phone Care Team Providers Care Dishroom Attendant Name Role Phone Unavailable Primary Care Provider Unavailabl e Reason for Visit * Reason Comments Med Refill Encounter Details Date Type Department Care Team (Late st Contact Info) Description 09/21/2025 [facility] [employer], [facility] [address] [facility] [employer] [facility] [address] [place] [address] Beatrice Young NP [address] [facility] [employer] [facility] [address] [place] [address] Social History Tobacco Use Types [...]
--- OUTSIDE RECORDS SUMMARY | 2025-10-07 12:16 | XMS_ITS | Clinical Summary ---
Author Organization [facility] Facility Address [address] [place] [address] Care Team Providers Care Transitional Living Specialist Name Role Phone Unavailable Primary Care Provider Unavailhans e Encounters Date Type Department Care Team Description 10/02/2025 Orders Only [facility] [address] [place] [address] Shannon Cochran MD 10/02/2025 Treatment [facility], [facility] [address] [place] [address] Shannon Cochran MD Hypertensive chronic kidney disease with stage 5 chronic kidney disease or end stage renal disease; End stage renal disease; Dependence on renal dialysis 09/[facility] [address] [place] [phone] Beatrice Young NP 09/26/2025 Orders Only [facility] [address] [place] [address] Shannon Cochran MD 09/26/2025 Refill [facility] [address] [place] [address] Beatrice Young NP 09/21/2025 Orders Only [facility] [address] [place] [address] Shannon Cochran MD 09/21/20[facility] [address] [place] [address] Beatrice Young NP 09/19/2025 Orders Only [facility] [address] [place] [address] Shannon Cochran MD 09/17/[address] [place] [address], [facility] [address] [place] [phone] Merlyn Smith NP End stage renal disease; Dependence on renal dialysis 09/12/2025 Orders Only [facility], [facility] [address] [place] [address] Shannon Cochran MD 09/12/[address] [place] [address], [facility] [address] [place] [address] Beatrice Young NP End stage renal disease; Dependence on renal dialysis; Hypertensive chronic kidney disease with stage 1 through stage 4 chronic kidney disease, or unspecified chronic kidney disease 09/04/2025 Orders Only [facility], [facility] [address] [place] [address] Shannon Cochran MD 09/04/[address] [place] [address], [facility] [address] [place] [address] Beatrice Young NP End stage renal disease; Dependence on renal dialysis; Hypertensive chronic kidney disease with stage 1 through stage 4 chronic kidney disease, or unspecified chronic kidney disease 08/29/[address] [facility], [facility] [address] [place] [address] Shannon Cochran MD 08/27/[address] [place] [address], [facility] [address] [place] [address] Shannon Cochran MD End stage renal disease; Dependence on renal dialysis 08/22/[address] [facility], [facility] [address] [place] [address] Shannon Cochran MD 08/20/[address] [place] [address], [facility] [address] [place] [address] Beatrice Young NP End stage renal disease; Dependence on renal dialysis; Hypertensive chronic kidney disease with stage 1 through stage 4 chronic kidney disease, or unspecified chronic kidney disease 08/15/[address] [facility], [facility] [address] [place] [address] Shannon Cochran MD 08/13/[address] [place] [address], [facility] [address] [place] [address] Beatrice Young NP End stage renal disease; Dependence on renal dialysis; Hypertensive chronic kidney disease with stage 1 through stage 4 chronic kidney disease, or unspecified chronic kidney disease 08/08/[address] [facility], [facility] [address] [place] [address] Shannon Cochran MD 08/06/2025 Treatment [facility] [address] [place] [address] Shannon Cochran MD End stage renal disease; Dependence on renal dialysis 08/03/[address] [facility], [facility] [address] [place] [address] Shannon Cochran MD 08/01/[address] [facility], [facility] [address] [place] [address] Shannon Cochran MD 07/30/[address] [place], [place] [address]rology [facility], [facility] [address] [place] [address] Beatrice Young NP End stage renal disease; Dependence on renal dialysis; Hypertensive chronic kidney disease with stage 1 through stage 4 chronic kidney disease, or unspecified chronic kidney disease 07/19/[address] [facility], [facility] [address] [place] [address] Beatrice Young NP 07/18/2025 Orders Only [facility] [address] [place] [address] Shannon Cochran MD 07/18/2025 Treatment [facility], [facility] [address] [place] [address] Merlyn Smith NP End stage renal disease; Dependence on renal dialysis 07/11/2025 Treatment [facility], [facility] [address] [place] [address] Beatrice Young NP End stage renal disease; Dependence on renal dialysis 07/11/2025 Orders Only [facility] [address] [place] [address] Shannon Cochran MD from Last 3 Months [...] Comments Blood Pressure 112/70 12/17/2016 11:00 AM QUANTITATIVE DEVELOPER Pulse 64 12/17/2016 11:00 AM QUANTITATIVE DEVELOPER Temperature - - Respiratory Rate - - Oxygen Saturation - - Inhaled Oxygen Concentration - - Weight 126 kg (277 lb 6.4 oz) 12/17/2016 11:00 A M QUANTITATIVE DEVELOPER Height 203.2 cm (6' 8 ) 12/17/2016 11:00 AM QUANTITATIVE DEVELOPER Body Mass Index 30.47 12/17/2016 11:00 AM QUANTITATIVE DEVELOPER Plan of Treatment Health Maintenance Due Date Last Done Comments Hepatitis B Vaccine (1 of 5 - Risk Dialysis 4-dose series) 1990 Pneumococcal Vaccine: 50+ Ye ars (2 of 2 - PCV) 10/20/2017 10/20/2016 Colorectal Cancer Screening: Annual FOBT 2019 Colorectal Cancer Screening: Colonoscopy 2019 Colorectal Cancer Screening: Sigmoidoscopy 2019 Diabetes: Hemoglobin A1C 07/17/2024 03/31/2019, 04/2017 Diabetes: Pedal Pulse Checked 07/17/2024 Diabetes: Sensory Foot Exam 07/17/2024 Diabetes: Visual Foot Exam 07/17/2024 Influenza Vaccine (#1) 2025 07/26/2024, 2014 Diabetes: Ophthalmology Exam 08/09/2026 08/09/2025, 08/10/2024 Pneumococcal Vaccine: Peds ( 0 to 5 Years) and At-Risk Patients (6 to 49 Years) Discontinued 10/20/2016 Procedures Procedure Name Priority Date/Time Associated Diagnosis Comments HEMOGLOBIN Routine 10/02/2025 HEMOGLOBIN Routine 09/26/2025 [facility] RESULTS Routine 09/21/2025 POST DIALYSIS BUN Routine 09/21/2025 BUN Routine 09/21/2025 HEMOGLOBIN Routine 09/19/2025 CO2, TOTAL Routine 09/19/2025 CHLORIDE Routine 09/19/2025 CREATININE, SERUM Routine 09/19/2025 [facility] RESULTS Routine 09/12/2025 FERRITIN Routine 09/12/2025 PTH, INTACT Routine 09/12/2025 DIFFERENTIAL WITH WBC Routine 09/12/2025 CBC Routine 09/12/2025 PLATELET COUNT Routine 09/12/2025 POST DIALYSIS BUN Routine 09/12/2025 IRON AND TIBC Routine 09/12/2025 MAGNESIUM Routine 09/12/2025 GLUCOSE, RANDOM Routine 09/12/2025 ALBUMIN Routine 09/12/2025 PROTEIN, TOTAL, SERUM Routine 09/12/2025 ALKALINE PHOSPHATASE Routine 09/12/2025 PHOSPHATE ( PHOSPHORUS) Routine 09/12/2025 CALCIUM Routine 09/12/2025 CO2, TOTAL Routine 09/12/2025 CHLORIDE Routine 09/12/2025 SODIUM Routine 09/12/2025 BUN Routine 09/12/2025 CREATININE, SERUM Routine 09/12/2025 POTASSIUM Routine 09/12/2025 HEMOGLOBIN Routine 09/04/2025 CO2, TOTAL Routine 09/04/2025 [...] 07/11/2025 CHEMISTRY Routine 07/11/2025 HEMATOLOGY Routine 07/11/2025 HEMOGLOBIN A1C Routine 12/15/2016 12:00 AM QUANTITATIVE DEVELOPER from Last 3 Months or Most Recently Relevant to Health Maintenance Results * (ABNORMAL) Hemoglobin (10/02/2025) Only the most recent of6 resultswithin the time period is included. Hemoglobin 11.4(L) 13.2 - 14.0 g/dL [facility] 10/02/2025 10/01/2025 9:0 1 AM QUANTITATIVE DEVELOPER Narrative Resulting Agency Comment Performing Organization Information: Site ID: [place] Name: [facility] Address: [address] [place] [address] Director: Sathya Coronado MD us Shannon Cochran MD LAB BLOOD ORDERABLES Final Re sult [facility] [address] [place] [address] * [facility] Results (09/21/2025) Only the most recent of5 resultswithin the time period is included. WSTDKT/V 3.2 Knowledge Center spKt/V (Daugirdas II) 1.44 Knowledge Center eKt/V (Tattersall) 1.26 [facility] Center 09/21/2025 09/21/2025 Booker Ordering Provider LAB BLOOD ORDERABLES Final Result [facility] Contact Performing lab Unknown, [place] * Post Dialysis BUN (09/21/2025) Only the most recent of3 resultswithin the time period is included. BUN Post Dialysis 10 7 - 25 mg/dL [facility] 09/21/2025 09/19/2025 4:1 1 PM QUANTITATIVE DEVELOPER Narrative Resulting Agency Comment Performing Organization Information: Site ID: [id number] Name: [facility] Address: [address] [place] [phone] Director: Sathya Coronado MD Shannon Cochran MD LAB BLOOD ORDERABLES Final Re sult [facility] [address] [place] [phone] * (ABNORMAL) BUN (09/21/2025) Only the most recent of3 resultswithin the time period is included. BUN 36(H) 7 - 25 mg/dL [facility] 09/21/2025 09/19/2025 4:1 1 PM QUANTITATIVE DEVELOPER Narrative Resulting Agency Comment Performing Organization Information: Site ID: [id number] Name: [facility] Address: [address] [place] [phone] Director: Sathya Coronado MD Shannon Cochran MD LAB BLOOD ORDERABLES Final Re sult Performing Organization Address [facility] Co de Phone Number [facility] [id number] [place] [phone] * (ABNORMAL) Creatinine, serum (09/19/2025) Only the most recent of6 resultswithin the time period is included. Creatinine 6.06(H) 0.70 - 1.30 mg/dL [facility] 09/19/2025 09/18/2025 7:4 9 AM QUANTITATIVE DEVELOPER Narrative Resulting Agency Comment Performing Organization Information: Site ID: [email or web address] Name: [email or web address] Address: [address] [place] [phone] Director: Sathya Coronado MD Shannon Cochran MD LAB BLOOD ORDERABLES Final Re sult Performing Organization Address [facility] Co de Phone Number [facility] [address] * Chloride (09/19/2025) Only the most recent of6 resultswithin the time period is included. Chloride 102 98 - 110 mmol/L [facility] 09/19/2025 09/18/2025 7:4 9 AM QUANTITATIVE DEVELOPER Narrative Resulting Agency Comment Performing Organization Information: Site ID: [email or web address] Name: [email or web address] Address: [address] [place] [phone] Director: Sathya Coronado MD us Shannon Cochran MD LAB BLOOD ORDERABLES Final Re sult Performing Organization Address [facility] Co de Phone Number [facility] [id number] [place] [phone] * CO2 (09/19/2025) Only the most recent of6 resultswithin the time period is included. Bicarbonate (CO2) 23 20 - 29 mmol/L [facility] 09/19/2025 09/18/2025 7:4 9 AM QUANTITATIVE DEVELOPER Narrative Resulting Agency Comment Performing Organization Information: Site ID: [id number] Name: [facility] Address: [address] [place] [phone] Director: Sathya Coronado MD Shannon Cochran MD LAB BLOOD ORDERABLES Final Re sult Performing Organization Address City/[facility] Co de Phone Number [facility] [address] * (ABNORMAL) Iron and TIBC (09/12/2025) Only the most recent of2 resultswithin the time period is included. Pathologist [facility] Iron, Total 68 50 - 180 mcg/dL [facility] TIBC 210(L) 250 - 425 mcg/dL (calc) [facility] Iron Saturation (TSat) 32 20 - 48 % (calc) [facility] 09/12/2025 09/11/2025 5:1 0 AM QUANTITATIVE DEVELOPER Narrative Resulting Agency Comment Performing Organization Information: Site ID: [id number] Name: [facility] Address: [address] [place] [phone] Director: Sathya Coronado MD Shannon Cochran MD LAB BLOOD ORDERABLES Final [facility] Performing Organization Address City/[facility]/ZIP Co de Phone Number [facility] [address] * (ABNORMAL) Differential with WBC (09/12/2025) Only the most recent of2 resultswithin the time period is included. Pathologist [facility] WBC 7.8 3.8 - 10.8 Thousand/u L [facility] Neutrophils Absolute 6,076 1,500 - 7,800 cells/uL [facility] Lymphocytes Absolute 647(L) 850 - 3,900 cells/uL [facility] Monocytes Absolute 640 200 - 950 cells/uL [facility] Eosinophils Absolute 343 15 - 500 cells/uL [facility] Basophils Absolute 94 0 - 200 cells/uL [facility] Neutrophils Relative 77.9 % [facility] Lymphocytes 8.3 % [facility] Monocytes 8.2 % [facility] Eosinophils 4.4 % [facility] Basophils Relative 1.2 % [facility] 09/12/2025 09/11/2025 5:1 0 AM QUANTITATIVE DEVELOPER Narrative Resulting Agency Comment Performing Organization Information: Site ID: [email or web address] [email or web address] Address: [address] [place] [phone] Director: Sathya Coronado MD Shannon Cochran MD LAB BLOOD ORDERABLES Final Re sult Performing Organization Address [facility] de Phone Number [facility] [address] * (ABNORMAL) Platelet count (09/12/2025) Only the most recent of2 resultswithin the time period is included. Platelets 123(L) 140 - 400 Thousand/uL [facility] 09/12/2025 09/11/2025 5:1 0 AM QUANTITATIVE DEVELOPER Narrative Resulting Agency Comment Performing Organization Information: Site ID: [email or web address] Name: [email or web address] Address: [address] [place] [phone] Director: Sathya Coronado MD us Shannon Cochran MD LAB BLOOD ORDERABLES Final Re sult Performing Organization Address [facility] Co de Phone Number [facility] [address] * (ABNORMAL) CBC (09/12/2025) Only the most recent of2 resultswithin the time period is included. WBC 7.8 3.8 - 10.8 Thousand/u L [facility] RBC 3.84(L) 4.20 - 5.80 Million/uL [facility] Hemoglobin 10.1(L) 13.2 - 14.0 g/dL [facility] Hematocrit 32.4(L) 39.4 - 51.1 % [facility] MCV 84.4 81.4 - 101.7 fL [facility] MCH 26.3(L) 27.0 - 33.0 pg [facility] MCHC 31.2(L) 31.6 - 35.4 g/dL [facility] Comment: For adults, a slight decrease in the calculated MCHC value (in the range of 30 to 32 g/dL) is most likely not clinically significant; however, it should be interpreted with caution in correlation with other red cell parameters and the patient's clinical condition. RDW 16.2(H) 11.0 - 15.0 % [facility] 09/12/2025 09/11/2025 5:1 0 AM QUANTITATIVE DEVELOPER Narrative Resulting Agency Comment Performing Organization Information: Site ID: [place] Name: [facility] Address: [address] [place] [phone] Director: Sathya Coronado MD Shannon Cochran MD LAB BLOOD ORDERABLES Final Re sult [facility] [address] [place] [phone] * (ABNORMAL) Sodium (09/12/2025) Only the most recent of2 resultswithin the time period is included. Sodium 132(L) 135 - 146 mmol/L [facility] 09/12/2025 09/11/2025 5:1 0 AM QUANTITATIVE DEVELOPER Narrative Resulting Agency Comment Performing Organization Information: Site ID: [place] Name: [facility] Address: [address] [place] [phone] Director: Sathya Coronado MD us Shannon Cochran MD LAB BLOOD ORDERABLES Final Re sult Performing Organization Address [facility] Co de Phone Number [facility] [id number] [place] [phone] * (ABNORMAL) Protein, total (09/12/2025) Only the most recent of2 resultswithin the time period is included. Total Protein 5.8(L) 6.1 - 8.1 g/dL [facility] 09/12/2025 09/11/2025 5:1 0 AM QUANTITATIVE DEVELOPER Narrative Resulting Agency Comment Performing Organization Information: Site ID: [id number] Name: [facility] Address: [address] [place] [phone] Director: Sathya Coronado MD us Shannon Cochran MD LAB BLOOD ORDERABLES Final Re sult Performing Organization Address [facility] Co de Phone Number [facility] [address] [place] [phone] * (ABNORMAL) Potassium (09/12/2025) Only the most recent of2 resultswithin the time period is included. Potassium 5.5(H) 3.5 - 5.3 mmol/L [facility] 09/12/2025 09/11/2025 5:1 0 AM QUANTITATIVE DEVELOPER Narrative Resulting Agency Comment Performing Organization Information: Site ID: [place] Name: [facility] Address: [address] [place] [phone] Director: Sathya Coronado MD us Shannon Cochran MD LAB BLOOD ORDERABLES Final Re sult Performing Organization Address [facility] Co de Phone Number [facility] [id number] [place] [phone] * (ABNORMAL) Phosphorus (09/12/2025) Only the most recent of2 resultswithin the time period is included. Phosphorus 8.2(H) 3.0 - 4.5 mg/dL [facility] 09/12/2025 09/11/2025 5:1 0 AM QUANTITATIVE DEVELOPER Narrative Resulting Agency Comment Performing Organization Information: Site ID: [place] Name: [email or web address] Address: [address] [place] [phone] Director: Sathya Coronado MD Shannon Cochran MD LAB BLOOD ORDERABLES Final Re sult Performing Organization Address [facility] Co de Phone Number [email or web address] [address] * Alkaline phosphatase (09/12/2025) Alkaline Phosphatase 75 35 - 144 U/L [email or web address] 09/12/2025 09/11/2025 5:1 0 AM QUANTITATIVE DEVELOPER Narrative Resulting Agency Comment Performing Organization Information: Site ID: [place] Name: [email or web address] Address: [address] [place] [phone] Director: Sathya Coronado MD Shannon Cochran MD LAB BLOOD ORDERABLES Final Re sult Performing Organization Address City/[facility] Co de Phone Number [email or web address] [address] * (ABNORMAL) PTH, Intact (09/12/2025) Parathyroid Hormone, Intact 87(H) 16 - 77 pg/mL [facility] Comment: Interpretive Guide Intact PTH Calcium ------- Normal Parathyroid Normal Normal Hypoparathyroidism Low or Low Normal Low Hyperparathyroidism Primary Normal or High High Secondary High Normal or Low Tertiary High High Non-Parathyroid Hypercalcemia Low or Low Normal High 09/12/2025 09/11/2025 5:1 0 AM QUANTITATIVE DEVELOPER Narrative Resulting Agency Comment Performing Organization Information: Site ID: [place] Name: [email or web address] Address: [address] [place], [place] [address] [address] Director: Sathya Coronado MD us Shannon Cochran MD LAB BLOOD ORDERABLES Final Re sult Performing Organization Address [facility]/ZIP Co de Phone Number [facility] [address] [place] [phone] * Magnesium (09/12/2025) Only the most recent of2 resultswithin the time period is included. Magnesium 2.5 1.6 - 2.5 mg/dL [facility] 09/12/2025 09/11/2025 5:1 0 AM QUANTITATIVE DEVELOPER Narrative Resulting Agency Comment Performing Organization Information: Site ID: [place] Name: [email or web address] Address: [address] [place] [phone] Director: Sathya Coronado MD us Shannon Cochran MD LAB BLOOD ORDERABLES Final Re sult Performing Organization Address [facility] Co de Phone Number [facility] [address] * (ABNORMAL) Glucose, random (09/12/2025) Only the most recent of2 resultswithin the time period is included. Glucose 146(H) 65 - 99 mg/dL [email or web address] Comment: For someone without known diabetes, a glucose value >125 mg/dL indicates that they may have diabetes and this should be confirmed with a follow-up test. 09/12/2025 09/11/2025 5:1 0 AM QUANTITATIVE DEVELOPER Narrative Resulting Agency Comment Performing Organization Information: Site ID: [place] Name: [email or web address] Address: [address] [place], [place] [address] [address] Director: Sathya Coronado MD us Shannon Cochran MD LAB BLOOD ORDERABLES Final Re sult Performing Organization Address City/[facility]/ZIP Co de Phone Number [facility] [address] * (ABNORMAL) Ferritin (09/12/2025) Ferritin 654(H) 38 - 380 ng/mL [facility] 09/12/2025 09/11/2025 5:1 0 AM QUANTITATIVE DEVELOPER Narrative Resulting Agency Comment Performing Organization Information: Site ID: [place] Name: [facility] Address: [address] [place] [phone] Director: Sathya Coronado MD us Shannon Cochran MD LAB BLOOD ORDERABLES Final Re sult Performing Organization Address [facility] Co de Phone Number [facility] [address] * (ABNORMAL) Calcium (09/12/2025) Only the most recent of2 resultswithin the time period is included. Calcium 8.3(L) 8.6 - 10.0 mg/dL [facility] 09/12/2025 09/11/2025 5:1 0 AM QUANTITATIVE DEVELOPER Narrative Resulting Agency Comment Performing Organization Information: Site ID: [place] Name: [facility] Address: [address] [place] [phone] Director: Sathya Coronado MD us Shannon Cochran MD LAB BLOOD ORDERABLES Final Re sult Performing Organization Address [facility] Co de Phone Number [facility] [address] * Albumin (09/12/2025) Only the most recent of2 resultswithin the time period is included. Albumin 3.9 3.6 - 5.1 g/dL [facility] 09/12/2025 09/11/2025 5:1 0 AM QUANTITATIVE DEVELOPER Narrative Resulting Agency Comment Performing Organization Information: Site ID: [id number] Name: [facility] Address: [address] [place] [address] Director: Sathya Coronado MD Shannon Cochran MD LAB BLOOD ORDERABLES Final Re sult Performing Organization Address [facility]/ZIP Co de Phone Number [facility] RES[facility] [address] [place] [address] * (ABNORMAL) HEMATOLOGY (08/08/2025) Only the most recent of4 resultswithin the time period is included. Pathologist [facility] Hemoglobin 10.5(L) 14.0 - 18.0 g/dL [facility] Hemoglobin x 3 31.5(L) 42.0 - 54.0 % [facility] 08/08/2025 08/09/2025 9:2 2 AM CDT Narrative [facility] - 08/09/2025 Unless otherwise specified, test(s) performed at: [facility], [address] [place] [address] GENERATING STATION MECHANIC: Dar Kang M.D. For any questions, please call customer service at FREQUENCY:OTHER Resulting Agency Comment Specimen source: Blood Shannon Cochran MD LAB BLOOD ORDERABLES Final Re sult Performing Organization Address City/[facility]/ZIP Co de Phone Number [facility] See order comments or contact performing lab Unknown, [place] * (ABNORMAL) [facility] Chemistry (08/08/2025) Only the most recent of5 resultswithin the time period is included. Creatinine 5.64(H) 0.60 - 1.30 mg/dL [facility] Chloride 98 96 - 108 mEq/L [facility] Bicarbonate (CO2) 25 22 - 29 mEq/L [facility] Ferritin 493(H) 22 - 322 ng/mL [facility] 08/08/2025 08/09/2025 9:0 2 AM CDT Narrative [facility] - 08/09/2025 Unless otherwise specified, test(s) performed at: [facility], [address] [place] [address] GENERATING STATION MECHANIC: Dar Kang M.D. For any questions, please call customer service at FREQUENCY:OTHER Resulting Agency Comment Specimen source: Serum us Shannon Cochran MD LAB BLOOD ORDERABLES Edited R esult - Final Performing Organization Address [facility] de Phone Number [facility] See order comments or contact performing lab Unknown, [place] * HD KINETICS (08/03/2025) Only the most recent of2 resultswithin the time period is included. % Urea Reduction 78 65 - 80 % [facility] 08/03/2025 08/04/2025 9:5 5 AM CDT Narrative Resulting Agency Comment Specimen source: Plasma us Shannon Cochran MD LAB BLOOD ORDERABLES Final Re sult Performing Organization Address [facility] de Phone Number [facility] See order comments or contact performing lab Unknown, [place] * (ABNORMAL) POST CHEMISTRY (08/03/2025) Only the most recent of2 resultswithin the time period is included. BUN Post Dialysis 5(L) 6 - 19 mg/dL [facility] 08/03/2025 08/04/2025 9:5 5 AM CDT Narrative [facility] - 08/04/2025 Unless otherwise specified, test(s) performed at: [facility], [address] [place] [address] GENERATING STATION MECHANIC: Dar Kang M.D. For any questions, please call customer service at FREQUENCY:OTHER Resulting Agency Comment Specimen source: Plasma us Shannon Cochran MD LAB BLOOD ORDERABLES Final Re sult [facility] See order comments or contact performing lab Unknown, [place] * (ABNORMAL) Hemoglobin A1c (12/15/2016 12:00 AM QUANTITATIVE DEVELOPER) Hemoglobin A1C 8.6(H) 4.0 - 6.0 % SNA Comment per courtesy lab ms SNA 12/15/2016 us Riki Vogel MD LAB BLOOD ORDERABLES Fi nal Result SNA from Last 3 Months or Most Recently Relevant to Health Maintenance Insurance Medicaid [place] ([id number]) [facility] Medicare
--- OUTSIDE RECORDS SUMMARY | 2025-10-07 12:16 | XMS_ITS | Encounter Summary ---
Author Organization [place] [facility] [employer], [facility] Address [address] [facility] [address] [place] [address] Phone Care Team Providers Care Farm Crops Teacher Name Role Phone Unavailable Primary Care Provider Unavailabl e Reason for Visit * Reason Comments Med Refill Encounter Details Date Type Department Care Team (Late st Contact Info) Description 09/26/2025 [facility] [address] [facility] [address] [place] [address] Beatrice Young NP [address] [facility] [address] [place] [address] Social History Tobacco Use Types [...]
--- OUTSIDE RECORDS SUMMARY | 2025-10-07 12:17 | XMS_ITS | Encounter Summary ---
Author Organization [place] [facility] [employer], [facility] Address [address] [facility] [address] [place] [address] Phone Care Team Providers Care Apprenticeship Representative Name Role Phone Unavailable Primary Care Provider Unavailabl e Reason for Visit * Reason Comments Med Refill Encounter Details Date Type Department Care Team (Late st Contact Info) Description 09/28/2025 [facility] [employer], [facility] [address] [facility] [address] [place] [address] Beatrice Young NP [address] [facility] [employer] [facility] [address] [place] [address] Social History Tobacco Use Types [...]
--- OUTSIDE RECORDS SUMMARY | 2025-10-07 12:17 | XMS_ITS | Encounter Summary ---
Author Organization [facility] Address [address] [place] [address] Care Team Providers Care Medical Billing And Coding Instructor Name Role Phone Osmani Contreras MD Primary Care Provider [phone] Encounter Details Date Type Department Care Team (Late st Contact Info) Description 01/04/2012 Ancillary Orders [facility] [place] [address] [place] [address] Sick Social History Tobacco Use Types Packs/Day Years Used Date Smoking Tobacco: Never Assessed Sex and Gender Information Value Date Recorded Sex Assigned at Not on file 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 Gender Identity Not on file Sexual [...] growth) Streptococcus salivarius(A) 01/06/2012 6:27 PM CDT [facility] GRAM STAIN Few Gram positive cocci 01/06/2012 6:27 PM CDT [facility] [place] GRAM STAIN No WBC's observed 012 6:27 PM CDT [facility] [place] Wound drainage 01/04/2012 9: 00 PM CDT 01/04/2012 11:02 PM CDT Narrative [facility] - 01/06/2012 6:27 PM CDT Left great toe. Sensitivity not normally preformed. Chelsey Prince [facility] MICROBIOLOGY - GENERAL ORDE LANE Final Result [facility] [employer] [facility] CLIA # [id number] [address] [place] [address] * (ABNORMAL) CBC WITH DIFFERENTIAL (01/04/2012 9:00 PM CDT) WBC 7.6 4.2 - 9.1 K/uL 01/04/2012 11:09 PM CDT [facility] RBC 5.33 4.63 - 6.08 M/uL 01/04/2012 11:09 PM [facility] [employer] [facility] HEMOGLOBIN 15.3 13.7 - 17.5 g/dL 01/04/2012 11:09 PM [facility] [employer] [facility] HEMATOCRIT 42.0 40.1 - 51.0 % 01/04/2012 11:09 PM T [facility] [employer] [facility] MCV 78.8(L) 79.0 - 92.2 fL 01/04/2012 11:09 PM CDT [facility] [employer] [facility] MCH 28.7 25.7 - 32.2 pg 01/04/2012 11:[facility] [employer] [facility] MCHC 36.4 32.3 - 36.5 g/dL 01/04/2012 11:09 PM [facility] [employer] [facility] RDW 12.8 11.0 - 14.5 % 01/04/2012 11:09 PM CDT [facility] [employer] [facility] [place] RDW-STDEV 36.6 fL 01/04/2012 11:09 PM CDT [email or web address] [place] PLATELETS 265 130 - 400 K/uL 01/04/2012 11:09 PM CDT [email or web address] [place] MPV 10.6 10.0 - 14.8 fL 01/04/2012 11:09 PM CDT [facility] [place] NEUTROPHILS 49 34 - 68 % 01/04/2012 11:09 PM CDT [facility] [place] LYMPHOCYTES 40 22 - 53 % 01/04/2012 11:09 PM CDT [facility] [place] MONOCYTES 9 5 - 12 % 01/04/2012 11:09 PM CDT [facility] [place] EOSINOPHILS 2 1 - 7 % 01/04/2012 11:09 PM CDT [facility] [place] BASOPHILS 1 0 - 1 % 01/04/2012 11:09 PM CDT [facility] [place] NEUTROPHIL ABSOLUTE 3.72 1.78 - 5.38 K/uL 01/04/2012 11:09 PM CDT [facility] [place] LYMPHOCYTE ABSOLUTE 3.03 1.20 - 3.40 K/uL 01/04/2012 11:09 PM CDT [facility] [place] MONOCYTE ABSOLUTE 0.65 0.30 - 0.82 K/uL 01/04/2012 11:09 PM CDT [email or web address] [place] EOSINOPHIL ABSOLUTE 0.11 0.04 - 0.54 K/uL 01/04/2012 11:09 PM CDT [facility] [place] BASOPHILS ABSOLUTE 0.04 0.01 - 0.08 K/uL 01/04/2012 11:09 PM CDT [email or web address] [place] Blood specimen (specimen) 01/04/2012 9:00 PM CDT 01/04/2012 11:02 PM CDT Chelsey Prince CLINICAL TRAINER HEMATOLOGY ORDERABLES Final Result [facility] [place] CLIA # [id number] [address] [place] [address] * (ABNORMAL) LIPID PANEL (01/04/2012 9:00 PM CDT) CHOLESTEROL 231(H) 130 - 200 mg/dL 01/04/2012 11:32 PM CDT [facility] TRIGLYCERIDE 108 30 - 200 mg/dL 01/04/2012 11:32 PM CDT [facility] HDL 51 35 - 80 mg/dL 01/04/2012 11:32 PM CDT [facility] LDL CALCULATED 158(H) 0 - 100 mg/dL 01/04/2012 11:32 PM T [facility] Blood specimen (specimen) 01/04/2012 9:00 PM CDT 01/04/2012 11:02 PM CDT Narrative [facility] - 01/04/2012 11:32 PM CDT TOTAL CHOLESTEROL mg/dL Desirable <200 Borderline high 200-239 High >=240 TRIGLYCERIDES mg/dL Normal <150 Borderline high 150-199 High 200-499 Very high >=500 HDL CHOLESTEROL mg/dL Low <40 Normal 40-60 Desirable >60 LDL CHOLESTEROL mg/dL Optimal <100 Low risk 100-129 Borderline high 130-159 High 160-189 Very high >=190 Based on AHA/NCEP Guidelines Chelsey Prince CLINICAL TRAINER CHEMISTRY ORDERABLES Final Result [facility] CLIA # [id number] [address] [place] [address] * (ABNORMAL) BASIC METABOLIC PANEL (01/04/2012 9:00 PM CDT) SODIUM 134(L) 136 - 145 mmol/L 01/04/2012 11:32 PM T [facility] [employer] [facility] POTASSIUM 3.7 3.5 - 5.1 mmol/L 01/04/2012 11:32 PM CDT [facility] CHLORIDE 97(L) 98 - 107 mmol/L 01/04/2012 11:32 PM T [facility] [employer] [facility] CO2 29 21 - 32 mmol/L 01/04/2012 11:32 PM CDT [facility] CALCIUM 9.2 8.5 - 10.1 mg/dL 01/04/2012 11:32 PM T [facility] BUN 19(H) 7 - 18 mg/dL 01/04/2012 11:32 PM CDT [facility] CREATININE 0.90 0.60 - 1.30 mg/dL 01/04/2012 11:32 PM T [facility] GLUCOSE 234(H) 74 - 106 mg/dL 01/04/2012 11:32 PM T [facility] GFR 93 >=60 mL/min/1.7 3 sq meter 01/04/2012 11:32 PM T [facility] GFR, 113 >=60 mL/min/1.7 3 sq meter 01/04/2012 11:32 PM T [facility] Blood specimen (specimen) 01/04/2012 9:00 PM CDT 01/04/2012 11:02 PM CDT Narrative [facility] - 01/04/2012 11:32 PM CDT eGFR has [...] patients with severe liver disease. Chelsey Prince CLINICAL TRAINER CHEMISTRY ORDERABLES Final Result Performing Organization Address City/State/[facility] Co de Phone Number [facility] [id number] [address] [place] [phone] documented in this encounter Visit Diagnoses Diagnosis Sick Other unknown and unspecified cause of morbidity or mortality documented in this encounter Additional Health Concerns Infection Onset Date Last Indicated Resolved Time C Diff Comment:Resolved 09/08/2018, Infection Prevention 03/11/16 ([facility]) 03/25/2016 03/25/2016 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
--- OUTSIDE RECORDS SUMMARY | 2025-10-07 12:17 | XMS_ITS | Encounter Summary ---
Author Organization [place] [facility] [employer], [facility] Address [address] [place] [address] Phone Care Team Providers Care Hospice Care Transitions Coordinator Name Role Phone Unavailable Primary Care Provider Rupal e Encounter Details Date Type Department Care Team (Late st Contact Info) Description 10/02/2025 [facility], [facility] [address] [place] [address] Shannon Cochran MD [address] [place] [address] Hypertensive chronic kidney disease with stage 5 [...] Dialysis Note - Shannon Cochran MD - 10/02/2025 12:00 AM CST Patient: Abimael Cochran, 1970, 55y, M Dialysis Location: [facility] Attending Batch Attendant: Shannon Cochran Service Date: 10/02/2025 Service Provider: Shannon Cochran MD I met face to face with the patient today. OVERVIEW The patient presented with ESRD on dialysis Primary cause of renal failure: Acute kidney failure with tubular necrosis Comments: VSS, Seen on hd machine. To meet with transplant in October 2025. He is not interested on home therapies again. Wanting some education on PD now but is still interested in HHD. Medications and labs reviewed. HOME MEDICATIONS Comments: on Requip 0.25 mg. Increased to 0.5 mg 06/13/2025 LAST HOSPITALIZATION Discharge Diagnosis: I20.0 Unstable angina N18.6 End stage renal disease Admission Date 04/12/25 Discharge Date 04/18/25 DIALYSIS PRESCRIPTION IHD 3x Week Start date: 10/03/25 Dialyzer: FX CorAL 80 BFR: 500 DFR: Manual 800 Potassium: 2.0 Sodium: 137 EDW: 102.4 Duration: 4:00 Calcium: 2.5 Bicarb: 30 Rx updated on: 10/02/2025 TREATMENT ASSESSMENT Comments: Stable at goal. BP Stand Pre 09/30/2025: 115/66 09/28/2025: 151/72 09/24/2025: 118/65 BP Sit Pre 09/30/2025: 132/74 09/28/2025: 139/70 09/24/2025: 151/82 BP Stand Post 09/30/2025: 124/71 09/28/2025: 113/63 09/24/2025: 150/74 BP Sit Post 09/30/2025: 140/71 09/28/2025: 137/70 09/24/2025: 131/68 Prescribed Tx time 09/30/2025: 4:00 09/28/2025: 4:00 09/24/2025: 4:00 Tx Duration 09/30/2025: 4:15 09/28/2025: 4:00 09/24/2025: 4:00 Missed Treatments 2 - last 30 days 3 - last 60 days 09/26 - recent FLUID ASSESSMENT Comments: Continue to challenge as tolerated EDW (kg) 09/30/2025: 102.4 09/28/2025: 102.4 09/24/2025: 102.4 Weight Pre (kg) 09/30/2025: 103.0 09/28/2025: 106.8 09/24/2025: 107.1 Weight Post (kg) 09/30/2025: 102.5 09/28/2025: 102.5 09/24/2025: 103.6 PWV (kg) 09/30/2025: 0.1 09/28/2025: 0.1 09/24/2025: 1.2 UF Rate (mL/kg/hr) 09/30/2025: 1.1 09/28/2025: 10.5 09/24/2025: 8.4 ADEQUACY ASSESSMENT Comments: Stable trend spKt/V, URR 09/21/2025: 1.44, 72.2 09/12/2025: 1.18, 64.1 08/15/2025: 1.5, 72.5 ACCESS ASSESSMENT Access Type: [email or web address] Access SubType: Standard Access Status: Active (In Use) - 07/11/2025 Access Location: Left Upper Arm Created: 12/28/2024 Flow 10/02/2025: ?199909/28/2025: 1980 Comments: For tunneled HD to be removed. Vascular access reviewed. Current access is permanent and functioning well. ANEMIA ASSESSMENT Comments: JAK and iron algorithms and therapies. HGB, TSAT 09/19/2025: 10.1, - 09/12/2025: 10.1, 32.0 09/04/2025: 10.6, - Ferritin 09/12/2025: 654.0 08/08/2025: 493.0 06/13/2025: 422.0 Mircera, IVP (mcg) 09/24/2025: 60 09/12/2025: 60 08/27/2025: 75 Iron Sucrose (Venofer) (mg) 08/24/2025: 100 08/20/2025: 100 08/17/2025: 100 BMM ASSESSMENT Comments: PTH is low: not on calcitriol Phos is usually well controlled. PTH, Intact 09/12/2025: 87.0 06/13/2025: 95.0 05/16/2025: 40.0 Calcium, Phosphorus 09/12/2025: 8.3, 8.2 08/15/2025: 8.4, 6.1 07/11/2025: 8.8, 4.3 NUTRITION ASSESSMENT Comments: Albumin is better. Potassium, Albumin 09/12/2025: 5.5, 3.9 08/15/2025: 3.9, 3.9 07/11/2025: 4.3, 3.8 eNPCR 09/12/2025: 0.88 08/15/2025: 0.7 08/03/2025: 0.54 PHYSICAL EXAM Exam Performed. Vital Signs Reviewed. CV - Blood pressure noted. EXT - No edema. EXT - No ulcers. AVF/AVG Positive thrill/bruit. DIAGNOSIS Chief Complaint: N18.6 End stage renal disease Patient is stable. ADDITIONAL DIAGNOSES Additional conditions addressed during visit: I12.0 Hypertensive chronic kidney disease with stage 5 chronic kidney disease or end stage renal disease Comments: Stable at goal. No changes. Monitor. Patient data updated 10/02/2025 at 9:59 AM Signed By: Shannon Cochran MD on 10/02/2025 10:01:30 AM documented in this encounter Plan of Treatment Not on file documented as of this encounter Visit Diagnoses Diagnosis Hypertensive chronic kidney disease with stage 5 chronic kidney disease or end stage renal disease End stage renal disease Dependence on renal dialysis documented in this encounter
--- OUTSIDE RECORDS SUMMARY | 2025-10-07 12:17 | XMS_ITS | Clinical Summary ---
Author Organization [facility] Address [address] [facility] Attn: [place] [address] Care Team Providers Care Lath Hand Name Role Phone Osmani Contreras MD [...] Spasm. 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 1 Each 0 6 Active albuterol sulfate [...] 2 Active fluticasone propionate (FLONASE) 50 mcg/spray [place], Suspension nasal inhaler 2 Active aspirin (ECOTRIN EC) 81 mg Tablet, Delayed Release (E.C.) Take 81 mg by mouth daily. Active Alpha Lipoic Acid 200 mg Tablet Take 1 Tablet by mouth 2 times daily. 4 Active busPIRone (BUSPAR) 10 mg tablet Take 1 Tablet by mouth 2 times daily. 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 Gender Identity Not on file Sexual Orientation [...] st Contact Info) Description 08/15/2026 11:00 AM 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 Office Visit [facility] [place] [address] [place] [address] Carol Morales MD [address] [place] [address] Health Maintenance Due Date Last [...] history exists INFLUENZA VACCINE (#1) 2025 , 08/17/2022, 07/23/2021, Additional history exists COVID-19 Vaccine (3 - 2024-2 6 season) 2025 06/15/2021, 05/18/2021 DIABETES ANNUAL RETINAL EXAM 08/09/2026, 08/09/2025, 08/09/2025, Additional history exists Abdominal Aortic Aneurysm (A AA) Screening Completed 03/22/2016 Medical Devices Implanted Type Area Grey Goods Tester Device Identifier Shelf Expiration Date Model / Serial / Lot Clip Ligating [facility] [id number] [facility] [place] [id number] Implanted:Qty: 1 on 12/28/2024 by Francoise Kinney MD at [facility] Clip Left: Arm TELEFLEX- WECK CLOSURE SYS [id number] 07/18/2029 [id number] / / [id number] Clip Ligating Horizon Red [id number] - Csc - [id number] Implanted:Qty: 1 on 12/28/2024 by Francoise Kinney MD at [facility] Clip Left: Arm TELE[employer]LEX INC [id number] 09/02/2029 [id number] / / [id number] Coil Emb María .035 6mm 14cm Micro Pltnm [id number] - [id number] Implanted:Qty: 1 on 05/10/2025 by Sanjeev Espinosa MD at [facility] Coil Left: Vein COOK- INTERVENTIONAL RAD [id number] 02/22/2030 [id number] / / [id number] Coil Emb María .035 6mm 14cm Micro Pltnm [id number] - [id number] Implanted:Qty: 1 on 05/10/2025 by Sanjeev Espinosa MD at [facility] Coil Left: Vein COOK- INTERVENTIONAL RAD [id number] 02/12/2030 [id number] / / [id number] Coil Interlock-35 360 6.1caz42iz [id number] - [id number] Implanted:Qty: 1 on 05/10/2025 by Sanjeev Espinosa MD at [facility] Coil Left: Vein [employer] SCI- NEUROVASC [id number] 04/14/2027 [id number] / / [id number] Coil Emb María .035 6mm 14cm Micro Pltnm [id number] - [id number] Implanted:Qty: 1 on 05/10/2025 by Sanjeev Espinosa MD at [facility] Coil Left: Vein COOK- INTERVENTIONAL RAD [id number] 02/12/2030 [id number] / / [id number] Coil Emb María .035 6mm 14cm Micro Pltnm [id number] - [id number] Implanted:Qty: 1 on 05/10/2025 by Sanjeev Espinosa MD at [facility] Coil Left: Vein COOK- INTERVENTIONAL RAD [id number] 02/12/2030 [id number] / / [id number] Coil Emb María .035 6mm 14cm Micro Pltnm [id number] - [id number] Implanted:Qty: 1 on 05/10/2025 by Sanjeev Espinosa MD at [facility] Coil Left: Vein COOK- INTERVENTIONAL RAD [id number] 02/12/2030 [id number] / / [id number] Coil Emb María .035 6mm 14cm Micro Pltnm [id number] - [id number] Implanted:Qty: 1 on 05/10/2025 by Sanjeev Espinosa MD at [facility] Coil Left: Vein COOK- INTERVENTIONAL RAD [id number] 02/12/2030 [id number] / / [id number] Coil Emb Maraí .035 6mm 14cm Micro Pltnm [id number] - [id number] Implanted:Qty: 1 on 05/10/2025 by Sanjeev Espinosa MD at [facility] Coil Left: Vein COOK- INTERVENTIONAL RAD [id number] 02/22/2030 [id number] / / [id number] Screw Hex Int Rc Bl 6.4x110 [id number] - [id number] Implanted:Qty: 1 on 03/30/2019 by Colt Garza MD Screw Right: Femur FOWLER NEPHEW ORTHO 07/30/2025 [id number] / / [id number] Screw Hex Int Rc Bl 6.4x115 [id number] - [id number] Implanted:Qty: 1 on 03/30/2019 by Colt Garza MD Screw Right: Femur FOWLER NEPHEW ORTHO 01/08/2022 [id number] / / [id number] Screw Trgn Lp 5.0x50mm 6761-4605 - [id number] Implanted:Qty: 1 on 03/30/2019 by Colt Garza MD Screw Right: Femur FOWLER NEPHEW ORTHO 02/11/2029 [id number] / / [id number] Screw Trgn Lp 5.0x60mm 0609-3489 - [id number] Implanted:Qty: 1 on 03/30/2019 by Colt Garza MD Screw Right: Femur FOWLER NEPHEW ORTHO 10/11/2026 [id number] / / [id number] Nail Implanted:Qty: 1 on 03/30/2019 by Colt Garza MD Right: Femur FOWLER NEPHEW ORTHO 08/10/2020 [id number] / / [id number] Explanted Type Area Grey Goods Tester Device Identifier Shelf Expiration Date Model / Serial / Lot Nail Fan Jud Rt [id number] - [id number] Implanted:Qty: 1 on 09/07/2018 by Colt Garza MD Explanted:Qty: 1 on 03/30/2019 by Colt Garza MD Nail Right: Femur FOWLER NEPHEW ORTHO 10/04/2025 [id number] / / [id number] Description:INV Screw Hex Int Rc Bl 6.4x110 [id number] - [id number] Implanted:Qty: 1 on 09/07/2018 by Colt Garza MD Explanted:Qty: 1 on 03/30/2019 by Colt Garza MD Screw Right: Femur FOWLER NEPHEW ORTHO 05/19/2027 [id number] / / [id number] Description:INV Screw Hex Int Rc Bl 6.4x115 [id number] - [id number] Implanted:Qty: 1 on 09/07/2018 by Colt Garza MD Explanted:Qty: 1 on 03/30/2019 by Colt Garza MD Screw Right: Femur FOWLER NEPHEW ORTHO 12/08/2019 [id number] / / [id number] Description:INV Screw Trgn Lp 5.0x47.5mm 9208-6872 - [id number] Implanted:Qty: 1 on 09/07/2018 by Colt Garza MD Explanted:Qty: 1 on 03/30/2019 by Colt Garza MD Screw Right: Femur FOWLER NEPHEW ORTHO 02/03/2028 [id number] / / [id number] Description:INV Screw Trgn Lp 5.0x52.5mm 2326-4998 - [id number] Implanted:Qty: 1 on 09/07/2018 by Colt Garza MD Explanted:Qty: 1 on 03/30/2019 by Colt Garza MD Screw Right: Femur FOWLER NEPHEW ORTHO 03/13/2028 [id number] / / [id number] Description:INV Procedures Procedure Name Priority Date/Time Associated Diagnosis Comments OCT, RETINA - OU - BOTH EYES Routine 08/09/2025 12:51 PM CDT Type 2 diabetes mellitus with both eyes affected by mild nonproliferative retinopathy without macular edema, with long-term current use of insulin ([facility]) EYE DROPS Routine 08/09/2025 12:36 PM CDT Type 2 diabetes mellitus with both eyes affected by mild nonproliferative retinopathy without macular edema, with long-term current use of insulin ([facility]) HEMOGLOBIN A1C Routine 03/31/2019 10:[address] ABDOMEN PELVIS WO CONTRAST IP Routine 03/22/2016 10:33 PM CDT from Last 3 Months or Most Recently Relevant to Health Maintenance Results * OCT, RETINA - OU - BOTH EYES (08/09/2025 12:51 PM CDT) Narrative [facility] OPHTHALMOLOGY ORDERS - 08/09/2025 1:38 PM CDT Optical coherence tomography ordered to evaluate the status of the macula: Right Eye: trace diabetic macular edema at the nasal fovea, improving from previous. Left Eye: normal foveal contour us Carol Morales MD OPHTH TOMOGRAPHY Final Re sult [facility] OPHTHALMOLOGY ORDERS * EYE DROPS (08/09/2025 12:36 PM CDT) Narrative [facility] OPHTHALMOLOGY-[place] - 08/09/2025 1:38 PM CDT Medications Eye Drops: 1 Drop phenylephrine 2.5 % Route: Topical NDC: 29849-971-38, Lot: [id number], Expiration date: 10/11/2025 1 Drop proparacaine 0.5 % Route: Topical NDC: 35719-723-96, Lot: [id number], Expiration date: 11/11/2026 1 Drop tropicamide 1 % Route: Topical NDC: 21064-731-72, Lot: [id number], Expiration date: 05/11/2026 Notes Eye drop orders per protocol for Basic [place] Actor Eye Exam (Dilated) 1 Drop proparacaine (OPHTHAINE) 0.5% ophthalmic solution prior to tonometry 1 Drop tropicamide (MYDRIACYL) 1% ophthalmic solution 1 Drop phenylephrine (AK-DILATE, MYDFRIN) 2.5% ophthalmic solution us Carol Morales MD OPH CLINIC PROCEDURES F inal Result Performing Organization Address City[facility]/ZIP Co de Phone Number [facility] [id number] [address] [place] [address] * (ABNORMAL) HEMOGLOBIN A1C (03/31/2019 10:06 AM CDT) HEMOGLOBIN A1C 11.4(H) See comment % 03/31/2019 12:05 PM CDT [facility] [employer] [facility] EST. AVG GLUCOSE, A1C 280 mg/dL 03/31/2019 12:05 PM T [facility] Blood BLOOD SPECIMEN / Unknown Venipuncture / Unknown 03/31/2019 10:06 AM CDT 03/31/2019 10:33 AM CDT Narrative [facility] [employer] [facility] - 03/31/2019 12:05 PM CDT HGB A1C INTERPRETATION NORMAL: <5.7% PRE-DIABETES: 5.7 - 6.4% DIABETES: 6.5% OR GREATER us Priya Tomas MD CHEMISTRY ORDERAB LES Final Result Performing Organization Address [facility]/ZIP Co de Phone Number [facility] CLIA# [id number] [address] [place] [address] [facility] [employer] [facility] CLIA# [id number] [address] [place] [address] * CT ABDOMEN PELVIS WO CONTRAST (03/22/2016 [...] Most Recently Relevant to Health Maintenance Insurance [facility] DUAL COMPLETE HMO [facility] [id number] MEDICAID [place] * Guarantor: ABIMAEL SAHU Account Type Relation to Patient Date of Phone Billing Address Personal/Family [address] [place] [address] [place] Medicare Part D Advance Directives For more information, please contact: [phone] * Full Code (Latest Code Status on File) Date Activated Date Inactivated Comments 12/28/2024 5:56 AM 12/28/2024 12:08 PM Care Teams Lath Hand Relationship Specialty Start Date End Date Osmani Contreras MD [address] [place] [address] PCP - General Family Practice 12/04/15
--- OUTSIDE RECORDS SUMMARY | 2025-10-07 12:17 | XMS_ITS | Clinical Summary ---
Author Organization [facility] Address [address] 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 Auto titration CPAP set [...] 18 mcg by inhalation daily. 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 1 Each 0 6 Active diltiazem (CARDIZEM [...] with meals. 15 mL 09/09/2018 7:26 PM DUSTLESS OPERATOR 8 Active ibuprofen (MOTRIN) 600 mg [...] (09/06/2018): Added automatically from request for surgery [id number] Chronic left-sided low back pain without sciatic [...] on file Legal Sex Male 3:06 AM DUSTLESS OPERATOR Gender Identity Not on file Sexual [...] 07/25/2018, 2014 Medical Devices Implanted Type Area Vortex Operator Device Identifier Shelf Expiration Date Model / Serial / Lot Screw Hex Int Rc Bl 6.4x110 [id number] - [id number] Implanted:Qty: 1 on 03/30/2019 by Colt Garza MD at [facility] Screw Right: Femur FOWLER NEPHEW ORTHO 07/30/2025 [id number] / / [id number] Screw Hex Int Rc Bl 6.4x115 [id number] - [id number] Implanted:Qty: 1 on 03/30/2019 by Colt Garza MD at [facility] Screw Right: Femur FOWLER NEPHEW ORTHO 01/08/2022 [id number] / / [id number] Screw Trgn Lp 5.0x50mm 4335-1756 - [id number] Implanted:Qty: 1 on 03/30/2019 by Colt Garza MD at [facility] Screw Right: Femur FOWLER NEPHEW ORTHO 02/11/2029 [id number] / / [id number] Screw Trgn Lp 5.0x60mm 9508-4066 - [id number] Implanted:Qty: 1 on 03/30/2019 by Colt Garza MD at [facility] Screw Right: Femur FOWLER NEPHEW ORTHO 10/11/2026 [id number] / / [id number] Nail Implanted:Qty: 1 on 03/30/2019 by Colt Garza MD at [facility] Right: Femur FOWLER NEPHEW ORTHO 08/10/2020 [id number] / / [id number] Explanted Type Area Vortex Operator Device Identifier Shelf Expiration Date Model / Serial / Lot Nail Fan Jud Rt [id number] - [id number] Implanted:Qty: 1 on 09/07/2018 by Colt Garza MD at [facility] Explanted:Qty: 1 on 03/30/2019 by Colt Garza MD at [facility] Nail Right: Femur FOWLER NEPHEW ORTHO 10/04/2025 [id number] / / [id number] Description:INV Screw Hex Int Rc Bl 6.4x110 [id number] - [id number] Implanted:Qty: 1 on 09/07/2018 by Colt Garza MD at [facility] Explanted:Qty: 1 on 03/30/2019 by Colt Garza MD at [facility] Screw Right: Femur FOWLER NEPHEW ORTHO 05/19/2027 [id number] / / [id number] Description:INV Screw Hex Int Rc Bl 6.4x115 [id number] - [id number] Implanted:Qty: 1 on 09/07/2018 by Colt Garza MD at [facility] Explanted:Qty: 1 on 03/30/2019 by Colt Garza MD at [facility] Screw Right: Femur FOWLER NEPHEW ORTHO 12/08/2019 [id number] / / [id number] Description:INV Screw Trgn Lp 5.0x52.5mm 6414-6684 - [id number] Implanted:Qty: 1 on 09/07/2018 by Colt Garza MD at [facility] Explanted:Qty: 1 on 03/30/2019 by Colt Garza MD at [facility] Screw Right: Femur FOWLER NEPHEW ORTHO 03/13/2028 [id number] / / [id number] Description:INV Screw Trgn Lp 5.0x47.5mm 4709-6870 - [id number] Implanted:Qty: 1 on 09/07/2018 by Colt Garza MD at [facility] Explanted:Qty: 1 on 03/30/2019 by Colt Garza MD at [facility] Screw Right: Femur FOWLER NEPHEW ORTHO 02/03/2028 [id number] / / [id number] Description:INV Procedures Procedure Name Priority Date/Time Associated Diagnosis Comments HEMOGLOBIN A1C Stat 03/31/2019 10:06 AM CDT LIPID PANEL Stat 01/04/2012 9:00 PM CDT SICK [ICD-9-CM] from Last 3 Months or Most Recently Relevant to Health Maintenance Results * (ABNORMAL) HEMOGLOBIN A1C (03/31/2019 10:06 AM CDT) HEMOGLOBIN A1C 11.4(H) See comment % 03/31/2019 12:05 PM CDT [facility] EST. AVG GLUCOSE, A1C 280 mg/dL 03/31/2019 12:05 PM CDT [facility] Blood BLOOD SPECIMEN / Unknown Venipuncture / Unknown 03/31/2019 10:06 AM CDT 03/31/2019 10:33 AM CDT [facility] - 03/31/2019 12:05 PM CDT HGB A1C INTERPRETATION NORMAL: <5.7% PRE-DIABETES: 5.7 - 6.4% DIABETES: 6.5% OR GREATER Priya Tomas MD CHEMISTRY ORDERAB LES Final Result [facility] CLIA# [id number] [facility] [place] [address] * (ABNORMAL) LIPID PANEL (01/04/2012 9:00 PM CDT) CHOLESTEROL 231(H) 130 - 200 mg/dL 01/04/2012 11:32 PM CDT [facility] TRIGLYCERIDE 108 30 - 200 mg/dL 01/04/2012 11:32 PM T [facility] HDL 51 35 - 80 mg/dL 01/04/2012 11:32 PM CDT [facility] LDL CALCULATED 158(H) 0 - 100 mg/dL 01/04/2012 11:32 PM CDT [facility] Blood specimen (specimen) 01/04/2012 9:00 PM CDT 01/04/2012 11:02 PM CDT [facility] - 01/04/2012 11:32 PM CDT TOTAL CHOLESTEROL mg/dL Desirable <200 Borderline high 200-239 High >=240 TRIGLYCERIDES mg/dL Normal <150 Borderline high 150-199 High 200-499 Very high >=500 HDL CHOLESTEROL mg/dL Low <40 Normal 40-60 Desirable >60 LDL CHOLESTEROL mg/dL Optimal <100 Low risk 100-129 Borderline high 130-159 High 160-189 Very high >=190 Based on AHA/NCEP Guidelines Chelsey Garcia [place] WARD SERVICE SUPERVISOR CHEMISTRY ORDERABLES Final Result [facility] CLIA # [id number] [address] [facility] [address] [place] [address] from Last 3 Months or Most Recently Relevant to Health Maintenance Insurance [employer] Medicare Part D [employer] [id number] O Advance Directives For more information, please contact: [phone] * Full Code (Latest Code Status on [...] 12:46 AM 04/05/2016 7:09 PM Care Teams Cnc Manufacturing Engineer Relationship Specialty Start Date End Date Osmani Contreras MD [address] [place] [address] PCP - General Family Practice 12/04/15
--- OUTSIDE RECORDS SUMMARY | 2025-10-07 12:17 | XMS_ITS | Encounter Summary ---
Author Organization [facility] Address [address] [place] [address] Care Team Providers Care Manager Of Planning Name Role Phone Osmani Contreras MD Primary Care Provider [phone] Encounter Details Date Type Department Care Team (Late st Contact Info) Description 01/11/2012 Ancillary Orders [facility] [place] [address] [place] [address] DM (diabetes mellitus) ([facility]) Social History Tobacco Use Types Packs/Day Years Used Date Smoking Tobacco: Never Assessed Sex and Gender Information Value Date Recorded Sex Assigned at Not on file 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 EST. AVG GLUCOSE, A1C 355 mg/dL 01/12/2012 1:01 AM CDT [facility] Blood specimen (specimen) 01/11/2012 10:05 PM CDT 01/11/2012 11:13 PM CDT us Osmani Contreras MD CHEMISTRY ORDERABLES Final Resu lt [facility] CLIA # [id number] [address] [facility] [address] [place] [address] documented in this encounter Visit Diagnoses Diagnosis DM (diabetes mellitus) (CMS/[facility]) Type II or unspecified type diabetes mellitus without mention of complication, not stated as uncontrolled documented in this encounter Additional Health Concerns Infection Onset Date Last Indicated Resolved Time C Diff Comment:Resolved 09/08/2018, Infection Prevention 03/11/16 ([facility]) 03/25/2016 03/25/2016 8 7:46 AM CAR SEALER documented as of this encounter Care Teams Manager Of Planning Relationship Specialty Start Date End Date Osmani Contreras MD [address] [place] [address] PCP - General Family Practice 12/04/15 documented as of this encounter
--- OUTSIDE RECORDS SUMMARY | 2025-10-07 12:17 | XMS_ITS | Encounter Summary ---
Author Organization [facility] Address [address] [place] [address] Care Team Providers Care Shellfish Manager Name Role Phone Osmani Contreras MD Primary Care Provider [phone] Encounter Details Date Type Department Care Team (Latest Contact Info) Description 09/16/2004 Outpatient Historical 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 Gender Identity Not on file Sexual Orientation Not on file documented as of this encounter Plan of Treatment Not on file documented as of this encounter Visit Diagnoses Diagnosis Reflux esophagitis- Primary documented in this encounter Additional Health Concerns Infection Onset Date Last Indicated Resolved Time C Diff Comment:Resolved 09/08/2018, Infection Prevention 03/11/16 ([facility]) 03/25/2016 03/25/2016 8 7:46 AM MANUFACTURER AGENT documented as of this encounter Care Teams Shellfish Manager Relationship Specialty Start Date End Date Osmani Contreras MD [address] [place] [address] PCP - General Family Practice 12/04/15 documented as of this encounter
--- OUTSIDE RECORDS SUMMARY | 2025-10-07 12:17 | XMS_ITS | Encounter Summary ---
Author Organization [facility] Address [address] [place] [address] Phone Care Team Providers Care Oracle Developer Name Role Phone Unavailable Primary Care Provider Unavailabl e Encounter Details Date Type Department Care Team (Late st Contact Info) Description 10/02/2025 Orders Only [facility] [place] [facility] [employer] [facility] [address] [place] [address] Shannon Cochran MD [address] [place] [address] Social History Tobacco Use Types [...] Date/Time Associated Diagnosis Comments HEMOGLOBIN Routine 10/02/2025 documented in this encounter Results * (ABNORMAL) Hemoglobin (10/02/2025) Hemoglobin 11.4(L) 13.2 - 14.0 g/dL [employer] 10/02/2025 10/01/2025 9:0 1 AM FIRE SUPPORT SPECIALIST Narrative Resulting Agency Comment Performing Organization Information: Site ID: [place] Name: [email or web address] Address: [address] [phone] Director: Sathya Coronado MD us Shannon Cochran MD LAB BLOOD ORDERABLES Final Re sult [facility] [address] [phone] documented in this encounter Visit Diagnoses Not on filedocumented in this encounter
--- OUTSIDE RECORDS SUMMARY | 2025-10-07 12:17 | XMS_ITS | Encounter Summary ---
Author Organization [facility] Address [address] [place] [address] Care Team Providers Care Validation Software Facilitator Name Role Phone Osmani Contreras MD Primary Care Provider Encounter Details Date Type Department Care Team ([facility] st Contact Info) Description 07/25/2004 Outpatient Historical [facility] [address] [place] [phone] Sarwat Naidu MD [address] [place] [address] Social History Tobacco Use Types Packs/Day Years Used Date Smoking Tobacco: Never Assessed Sex and Gender Information Value Date Recorded Sex Assigned at Not on file Legal Sex Male 3:06 AM 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 MANAGER Gender Identity Not on file Sexual Orientation Not on file documented as of this encounter Plan of Treatment Not on file documented as of this encounter Visit Diagnoses Not on filedocumented in this encounter Additional Health Concerns Infection Onset Date Last Indicated Resolved Time C Diff Comment:Resolved 09/08/2018, Infection Prevention 03/11/16 ([facility]) 03/25/2016 03/25/2016 8 7:46 AM 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 MANAGER documented as of this encounter Care Teams Validation Software Facilitator Relationship Specialty Start Date End Date Osmani Contreras MD [address] [place] [address] PCP - General Family Practice 12/04/15 documented as of this encounter
--- OUTSIDE RECORDS SUMMARY | 2025-10-07 12:17 | XMS_ITS | Encounter Summary ---
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 Social History Tobacco Use Types Packs/Day Years Used Date Smoking Tobacco: Former Smokeless Tobacco: Current Chew Alcohol Use Standard Drinks/Week Comments Yes 0 (1 standard drink = 0.6 oz pur e alcohol) rare Sex and Gender Information Value Date Recorded Sex Assigned at Not on file 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
--- OUTSIDE RECORDS SUMMARY | 2025-10-07 12:17 | XMS_ITS | Encounter Summary ---
Author Organization [facility] Address [address] [facility] [place] [address] Care Team Providers Care Goods Layer Name Role Phone Osmani Contreras MD Primary Care Provider [phone] Encounter Details Date Type Department Care Team (Latest Contact Info) Description 08/15/2004 Outpatient [facility] [address] [place] [phone] Sarwat Naidu MD [address] [place] [phone] HYPERTENSION NOS (Primary Dx) Social History Tobacco Use Types Packs/Day Years Used Date Smoking Tobacco: Never Assessed Sex and Gender Information Value Date Recorded Sex Assigned at Not on file Legal Sex Male 3:06 AM RESEARCH AIDE Gender Identity Not on file Sexual Orientation Not on file documented as of this encounter Plan of Treatment Not on file documented as of this encounter Visit Diagnoses Diagnosis Unspecified essential hypertension- Primary documented in this encounter Additional Health Concerns Infection Onset Date Last Indicated Resolved Time C Diff Comment:Resolved 09/08/2018, Infection Prevention 03/11/16 ([facility]) 03/25/2016 03/25/2016 8 7:46 AM RESEARCH AIDE documented as of this encounter Care Teams Goods Layer Relationship Specialty Start Date End Date Osmani Contreras MD [address] [place] [address] PCP - General Family Practice 12/04/15 documented as of this encounter
--- OUTSIDE RECORDS SUMMARY | 2025-10-07 12:17 | XMS_ITS | Encounter Summary ---
Author Organization [facility] Address [address] [place] [address] Care Team Providers Care Spool Sander Name Role Phone Osmani Contreras MD Primary Care Provider [phone] Encounter Details Date Type Department Care Team (Latest Contact Info) Description 09/16/2004 Outpatient [facility] [address] [facility] [address] [place] [address] Theodore Lugo MD [address] [place] [phone] ABDOMINAL PAIN EPIGASTRIC (Primary Dx); HEARTBURN; REFLUX ESOPHAGITIS Social History Tobacco Use Types Packs/Day Years Used Date Smoking Tobacco: Never Assessed Sex and Gender Information Value Date Recorded Sex Assigned at Not on file 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
--- OUTSIDE RECORDS SUMMARY | 2025-10-07 12:17 | XMS_ITS | Encounter Summary ---
Author Organization [facility], [facility] Address [address] [place] [address] Phone Care Team Providers Care Cooking Chef Name Role Phone Unavailable Primary Care Provider Unavailabl e Reason for Visit * Reason Comments Med Refill Encounter Details Date Type Department Care Team (Late st Contact Info) Description 07/17/2024 Refill [facility], [facility] [address] [place] [address] Shannon Cochran MD [address] [place] [address] Social History Tobacco Use Types [...] Urea Reduction 69 65 - 80 % [place] 08/16/2024 08/18/2024 9:1 6 AM CASH POSTING SPECIALIST Narrative Resulting Agency Comment Specimen source: Plasma Shannon Cochran MD LAB BLOOD ORDERABLES Final Re sult [facility] See order comments or contact performing lab Unknown, [place] * POST CHEMISTRY (08/16/2024) BUN Post Dialysis 10 6 - 19 mg/dL [email or web address] 08/16/2024 08/18/2024 9:1 6 AM CASH POSTING SPECIALIST Narrative [facility] - 08/18/2024 Unless otherwise specified, test(s) performed at: [facility] [address] [place] [address] BUSINESS AREA MANAGER: Dar Kang M.D. For any questions, please call customer service at FREQUENCY:MONTHLY Resulting Agency Comment Specimen source: Plasma us Shannon Cochran MD LAB BLOOD ORDERABLES Final Re sult [facility] See order comments or contact performing lab Unknown, [place] * IMMUNO CHEMISTRY (08/16/2024) Pathologist [facility] Hep B Surface Ag Negative Negative [facility] 08/16/2024 08/17/2024 1:3 9 PM CASH POSTING SPECIALIST Narrative Resulting Agency Comment Specimen source: Serum us Shannon Cochran MD LAB BLOOD ORDERABLES Final Re sult Performing Organization Address [facility] Co de Phone Number [facility] See order comments or contact performing lab Unknown, [place] * (ABNORMAL) [facility] Chemistry (08/16/2024) Pathologist [facility] BUN 32(H) 6 - 19 mg/dL [facility] [...] [facility] 08/16/2024 08/17/2024 1:3 9 PM CASH POSTING SPECIALIST Narrative [facility] - 08/17/2024 Unless otherwise specified, test(s) performed at: [facility] [address] [place] [address] BUSINESS AREA MANAGER: Dar Kang M.D. For any questions, please call customer service at FREQUENCY:MONTHLY Resulting Agency Comment Specimen source: Serum us Shannon Cochran MD LAB BLOOD ORDERABLES Final Re sult [facility] [place] See order comments or contact performing lab [...] [facility] 08/16/2024 08/17/2024 1:4 4 PM CASH POSTING SPECIALIST Narrative [facility] - 08/17/2024 Unless otherwise specified, test(s) performed at: [facility] [address] [place] [address] BUSINESS AREA MANAGER: Dar Kang M.D. For any questions, please call customer service at FREQUENCY:MONTHLY Resulting Agency Comment Specimen source: Blood us Shannon Cochran MD LAB BLOOD ORDERABLES Final Re sult Performing Organization Address [facility] Co de Phone Number [facility] [...] 08/09/2024 Unless otherwise specified, test(s) performed at: [facility] [address] [place] [address] BUSINESS AREA MANAGER: Dar Kang M.D. For any questions, please call customer service at FREQUENCY:OTHER Resulting Agency Comment Specimen source: Serum us Shannon Cochran MD LAB BLOOD ORDERABLES Final Re sult Performing Organization Address [facility] Co de Phone Number [facility]PS [facility] See order comments or contact performing lab Unknown, [place] * (ABNORMAL) HEMATOLOGY (08/08/2024) Hemoglobin 9.4(L) 14.0 - 18.0 g/dL [facility] Hemoglobin x 3 28.2(L) 42.0 - 54.0 % [facility] 08/08/2024 08/09/2024 9:4 7 AM CDT Narrative [facility] - 08/09/2024 Unless otherwise specified, test(s) performed at: [facility] [address] BUSINESS AREA MANAGER: Dar Kang M.D. For any questions, please call customer service at FREQUENCY:OTHER Resulting Agency Comment Specimen source: Blood us Shannon Cochran MD LAB BLOOD ORDERABLES Final Re sult Performing Organization Address [facility] de Phone Number [email or web address] See order comments or contact performing lab Unknown, [place] * (ABNORMAL) HEMATOLOGY (08/02/2024) [facility] Hemoglobin 9.2(L) 14.0 - 18.0 g/dL [facility] Hemoglobin x 3 27.6(L) 42.0 - 54.0 % [facility] 08/02/2024 08/03/2024 11: [address] [facility] - 08/03/2024 Unless otherwise specified, test(s) performed at: [facility] [phone] BUSINESS AREA MANAGER: Dar Kagn M.D. For any questions, please call customer service at FREQUENCY:OTHER Resulting Agency Comment Specimen source: Blood Shannon Cochran MD LAB BLOOD ORDERABLES Final Re sult Performing Organization Address [facility] de Phone Number [email or web address] See order comments or contact performing lab Unknown, [place] * IMMUNO CHEMISTRY (08/02/2024) [facility] Hepatitis C Antibody Nonreactive Nonreactive [email or web address] Comment: No HCV antibody detected. The above [...] Re sult Performing Organization Address [facility]/ZIP Co de Phone Number [facility] See order comments or contact [...] 08/03/2024 Unless otherwise specified, test(s) performed at: [facility] [address] [place] [address] BUSINESS AREA MANAGER: Dar Kang M.D. For any questions, please call customer service at FREQUENCY:OTHER Resulting Agency Comment Specimen source: Serum us Shannon Cochran MD LAB BLOOD ORDERABLES Final Re sult Performing Organization Address [facility] Co de Phone Number [facility] See order comments [...] 07/31/2024 08/01/2024 10: [address] [facility] - 08/01/2024 Unless otherwise specified, test(s) performed at: [facility] [address] [place], [place] [phone] BUSINESS AREA MANAGER: Dar Kang M.D. For any questions, please call customer service at FREQUENCY:OTHER Resulting Agency Comment Specimen source: Urine Shannon Cochran MD LAB URINE ORDERABLES Final Re sult Performing Organization Address [facility] Co de Phone Number [email or web address] See order comments or contact performing lab Unknown, [place] * (ABNORMAL) [facility] Chemistry (07/31/2024) BUN 24(H) 6 - [...] 07/31/2024 08/01/2024 9:[address] [facility] - 08/01/2024 Unless otherwise specified, test(s) performed at: [facility] [address] [place] [phone] BUSINESS AREA MANAGER: Dar Kang M.D. For any questions, please call customer service at FREQUENCY:OTHER Resulting Agency Comment Specimen source: Serum us Shannon Cochran MD LAB BLOOD ORDERABLES Final Re sult Performing Organization Address [place]/[facility]/ZIP Co de Phone Number [facility] See order comments or contact performing lab Unknown, [place] * (ABNORMAL) [facility] (07/31/2024) [facility] PTH 391(H) 16 - 80 pg/mL [facility] 07/31/2024 08/01/2024 10: [address] [facility] - 08/01/2024 Unless otherwise specified, test(s) performed at: [facility] [address] [place] [address] BUSINESS AREA MANAGER: Dar Kang M.D. For any questions, please call customer service at FREQUENCY:OTHER Resulting Agency Comment Specimen source: Plasma us Shannon Cochran MD LAB BLOOD ORDERABLES Final Re sult Performing Organization Address [facility] Co de Phone Number [email or web address] See order comments or contact performing lab Unknown, [place] * PATIENT INFORMATION (07/31/2024) [facility] Patient BSA 2.65 sq. M. [facility] Comment: Normalized values are calculated using the patient's actual BSA and normalized to the average BSA of 1.73m2. 07/31/2024 08/01/2024 9:[address] [facility] - 08/01/2024 Unless otherwise specified, test(s) performed at: [facility] [address] BUSINESS AREA MANAGER: Dar Kang M.D. For any questions, please call customer service at FREQUENCY:OTHER Resulting Agency Comment Specimen source: PD Fluid us Shannon Cochran MD LAB BLOOD ORDERABLES Final Re sult Performing Organization Address [place]/[facility]/ZIP Co de Phone Number [email or web address] See order comments or contact performing lab Unknown, [place] * PATIENT INFORMATION (07/31/2024) [facility] Patient Weight 127.3 [facility] Patient Height 203.0 [facility] Amputee Status NO [facility] Amputee Parts NONE [facility] Urine Volume 1,700 [facility] Collection Interval, Ur 24.0 [facility] 07/31/2024 07/31/2024 Narrative [facility]PS [facility] - 08/01/2024 Unless otherwise specified, test(s) performed at: [facility] [address] [place] [id number] BUSINESS AREA MANAGER: Dar Kang M.D. For any questions, please call customer service at FREQUENCY:OTHER Resulting Agency Comment Specimen source: PD Fluid Shannon Cochran MD LAB BLOOD ORDERABLES Final Re sult [facility] See order comments or contact performing lab Unknown, [place] * (ABNORMAL) HEMATOLOGY (07/26/2024) Pathologist [facility] Hemoglobin 9.6(L) 14.0 - 18.0 g/dL [facility] Hemoglobin x 3 28.8(L) 42.0 - 54.0 % [facility] Reticulocyte Hemoglobin 32.8(H) 25.4 - 31.8 pg [facility] 07/26/2024 07/27/2024 1:0 8 PM CDT Narrative [facility] - 07/27/2024 Unless otherwise specified, test(s) performed at: [facility] [address] [place] [phone] BUSINESS AREA MANAGER: Dar Kang M.D. For any questions, [...] 07/26/2024 07/27/2024 8:[address] [facility] - 07/27/2024 Unless otherwise specified, test(s) performed at: [facility] [address] [place] [address] BUSINESS AREA MANAGER: Dar Kang M.D. For any questions, please call customer service at FREQUENCY:OTHER Resulting Agency Comment Specimen source: Serum us Shannon Cochran MD LAB BLOOD ORDERABLES Final Re sult [facility] See order comments or contact performing lab Unknown, [place] * (ABNORMAL) [facility] Chemistry (07/19/2024) BUN 29(H) 6 - 19 [...] 07/19/2024 07/20/2024 10: [address] [facility] - 07/20/2024 Unless otherwise specified, test(s) performed at: [facility] [id number] BUSINESS AREA MANAGER: Dar Kang M.D. For any questions, please call customer service at FREQUENCY:MONTHLY Resulting Agency Comment Specimen source: Serum Shannon Cochran MD LAB BLOOD ORDERABLES Final Re sult Performing Organization Address [facility] de Phone Number [facility] See order comments or contact performing lab Unknown, [place] * TRACE ELEMENTS (07/19/2024) Pathologist [facility] Aluminum <5 0 - 10 mcg/L [facility] Comment: This test was developed and its performance characteristics determined by [facility] It has not been cleared or approved by the FDA. The laboratory is regulated under CLIA as qualified to perform high complexity testing. This test is used for clinical purposes. It should not be regarded as investigational or for research. 07/19/2024 07/20/2024 10: [address] [facility] - 07/20/2024 Unless otherwise specified, test(s) performed at: [facility] [address] [place] [id number] BUSINESS AREA MANAGER: Dar Kang M.D. For any questions, please call customer service at FREQUENCY:MONTHLY Resulting Agency Comment Specimen source: Serum Shannon Cochran MD LAB BLOOD ORDERABLES Final Re [facility] Performing Organization Address [facility] de Phone Number [facility] See order comments or contact performing lab Unknown, [place] * (ABNORMAL) HEMATOLOGY (07/19/2024) Pathologist [facility] Neutrophils 78.3(H) 40.0 - 75.0 % [facility] [...] 07/19/2024 07/20/2024 11: [address] [facility] - 07/20/2024 Unless otherwise specified, test(s) performed at: [facility] [address] [place] [address] BUSINESS AREA MANAGER: Dar Kang M.D. For any questions, please call customer service at FREQUENCY:MONTHLY Resulting Agency Comment Specimen source: Blood us Shannon Cochran MD LAB BLOOD ORDERABLES Final Re sult [facility] See order comments or contact performing lab [facility], [place] * IMMUNO CHEMISTRY (07/17/2024) Hepatitis B Surface Ab <10 mIU/mL [facility] Comment: Reference Range: <10 mIU/mL Non-Immune >=10 mIU/mL Immune The magnitude of the measured result above 10 mIU/mL is not indicative of the total amount of antibody present. Custom Exception Hep B Core Total Ab Negative Negative [facility] Comment: Hep B Core Ab, Total appears during the acute infection stage and remains reactive/positive throughout the recovery stage. The above test result was obtained using Siemens Centaur XP chemiluminescent method. Results obtained with different assay methods or kits cannot be used interchangeably. Hep B Surface Ag Negative Negative [facility] 07/17/2024 07/18/2024 11: 19 AM CDT Narrative [facility] - 07/18/2024 Unless otherwise specified, test(s) performed at: [facility] [address] [place] [address] BUSINESS AREA MANAGER: Dar Kang M.D. For any questions, please call customer service at FREQUENCY:OTHER Resulting Agency Comment Specimen source: Serum us Shannon Cochran MD LAB BLOOD ORDERABLES Edited R esult - Final APS [email or web address] See order comments or contact performing lab Unknown, [place] documented in this encounter Visit Diagnoses Not on filedocumented in this encounter
--- OUTSIDE RECORDS SUMMARY | 2025-10-07 12:17 | XMS_ITS | Encounter Summary ---
Author Organization [facility] Address [address] [facility] [address] [facility] [place] [address] Care Team Providers Care Counseling Aide Name Role Phone Osmani Contreras MD Primary Care Provider [phone] Encounter Details Date Type Department Care Team (Latest Contact Info) Description 07/24/2004 Outpatient [facility] [address] [place] [phone] Sarwat Naidu MD [address] [place] [phone] HYPERTENSION NOS (Primary Dx) Social History Tobacco Use Types Packs/Day Years Used Date Smoking Tobacco: Never Assessed Sex and Gender Information Value Date Recorded Sex Assigned at Not on file Legal Sex Male 3:06 AM TIRE CHANGER Gender Identity Not on file Sexual Orientation Not on file documented as of this encounter Plan of Treatment Not on file documented as of this encounter Visit Diagnoses Diagnosis Unspecified essential hypertension- Primary documented in this encounter Additional Health Concerns Infection Onset Date Last Indicated Resolved Time C Diff Comment:Resolved 09/08/2018, Infection Prevention 03/11/16 ([facility]) 03/25/2016 03/25/2016 8 7:46 AM TIRE CHANGER documented as of this encounter Care Teams Counseling Aide Relationship Specialty Start Date End Date Osmani Contreras MD [address] [place] [address] PCP - General Family Practice 12/04/15 documented as of this encounter
--- OUTSIDE RECORDS SUMMARY | 2025-10-07 12:17 | XMS_ITS | Encounter Summary ---
Author Organization [facility] Address [address] [place] [address] Care Team Providers Care Stunt Driver Name Role Phone Osmani Contreras MD Primary Care Provider [phone] Encounter Details Date Type Department Care Team (Latest Contact Info) Description 08/20/1999 Outpatient Historical [facility] hBarathi Walker MD [address] [facility] [address] [place] [address] Hernia of unspecified site of abdominal cavity without mention of obstruction or gangrene (Primary Dx) Social History Tobacco Use Types Packs/Day Years Used Date Smoking Tobacco: Never Assessed Sex and Gender Information Value Date Recorded Sex Assigned at Not on file Legal Sex Male 3:06 AM WRIST LINER Gender Identity Not on file Sexual Orientation [...] Diff Comment:Resolved 09/08/2018, Infection Prevention 03/11[facility] ([facility] 03/25/2016 03/25/2016 8 7:46 AM WRIST LINER documented as of this encounter Care Teams Stunt Driver Relationship Specialty Start Date End Date Osmani Contreras MD [address] [place] [address] PCP - General Family Practice 12/04/15 documented as of this encounter
--- OUTSIDE RECORDS SUMMARY | 2025-10-07 12:17 | XMS_ITS | Patient Health Record ---
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 2005 Former smoker: He smoked 1.5 -2ppd for about 10 years; he stopped smoking 2004 Former smoker: He smoked 1.5 -2ppd for about 10 years; he stopped smoking . 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) Renal tubulo-interstitial disease, unspecified (N15.9) Active confirmed Problem Secondary hyperparathyroidism of renal origin (36981901) Secondary hyperparathyroidism of renal origin (N25.81) Active confirmed Problem Long-term current use of insulin (648308589) 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 (Z79.4) Active confirmed Problem Iron deficiency anemia (86676304) Iron deficiency anemia, unspecified iron deficiency anemia type (D50.9) Active confirmed Problem Chronic kidney disease stage 4 (369670609) CKD (chronic kidney disease), stage IV (N18.4) Active confirmed Problem Hyperparathyroidism (57137704) Hyperparathyroidism (E21.3) Active confirmed Problem Benign hypertension (47331756) Hypertension, benign (I10) Active confirmed Problem Vitamin D deficiency (69140313) Vitamin D deficiency (E55.9) Active confirmed Problem Acute kidney injury (85729097) Acute kidney injury (N17.9) Active confirmed Problem Hypoalbuminemia (649053942) Hypoalbuminemia (E88.09) Active confirmed Problem Chronic renal failure syndrome (02103917) Chronic kidney disease, unspecified CKD stage (N18.9) Active confirmed Problem Chronic kidney disease stage 3 (disorder) (919430531) Chronic kidney disease, stage 3 unspecified (N18.30) Active confirmed Problem Chronic kidney disease stage 3 (disorder) (445477694) Stage 3 chronic kidney disease, unspecified whether stage 3a or 3b CKD (N18.30) Active confirmed Problem Primary hypertension (98080696) Primary hypertension (I10) Active confirmed Problem Essential hypertension (77252961) Essential hypertension (401.1) 2013 Active confirmed [id number]- Problem Diabetes mellitus type 2 (disorder) (20239325) Type 2 diabetes (250.00) 2011 Active confirmed [id number]- Problem Foot ulcer (46929771) Ulcer of other part of foot (707.15) 2011 Problem resolved confirmed [id number]- Problem Shortness of breath (256031235) Shortness of breath (786.05) 2013 Problem resolved confirmed [id number]- Problem Androgen deficiency (30662204) Testosterone deficiency (257.2) 2013 Problem resolved confirmed [id number]- Problem Low back pain (765172469) Low back pain (724.2) 2013 Problem resolved confirmed [id number]- Problem Tinea corporis (30087427) Tinea corporis (110.5) 2012 Problem resolved confirmed [id number]- Problem Type II diabetes mellitus uncontrolled (239571149) Diabetes mellitus without mention of complications, type II or unspecified type, uncontrolled (250.02) 2013 Problem resolved confirmed [id number]- Problem Shoulder pain (20520164) Shoulder pain (719.41) 2012 Problem resolved confirmed [id number]- Problem Open wound of toe (957457390) Open wound of toe(s) (893.0) 2013 Problem resolved confirmed [id number]- Problem Intermittent claudication (80334029) Intermittent claudication (443.9) 2013 Problem resolved confirmed [id number]- Problem Foot pain (07071766) Foot pain (729.5) 2013 Problem resolved confirmed [id number]- Problem Peripheral neuropathy (655815547) Peripheral neuropathy (356.9) 2011 Problem resolved confirmed [id number]- Problem Needs influenza immunization (213822451) Vaccination against other viral diseases, Influenza (V04.81) 2011 Problem resolved confirmed [id number]- Problem Breast pain (16225853) Breast pain (611.71) 2011 Problem resolved confirmed [id number]- Problem Ankle pain (647791280) Ankle pain (719.47) 2012 Problem resolved confirmed [id number]- Problem Erectile dysfunc tion secondary to diabetes (607.84) 2013 Problem resolved confirmed [id number]- Problem Tinea pedis (9295718) Tinea pedis (110.4) 2012 Problem resolved confirmed [id number]- Problem Administration of vaccine product containing only Streptococcus pneumoniae antigen (procedure) (77404491) Vaccination against pneumococcal pneumonia (V03.82) 2011 Problem resolved confirmed [id number]- Problem Low back pain (641859150) Lower back pain (724.2) 2011 Problem resolved confirmed [id number]- Problem Hypertrophy of tonsils (47479482) Hypertrophy of tonsils (474.11) 2012 Problem resolved confirmed [id number]- Problem Neurologic disorder associated with type II diabetes mellitus (531879762) Peripheral neuropathy secondary to uncontrolled type II diabetes (250.62) 2013 Problem resolved confirmed [id number]- Problem 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 (55283602) Unspecified skin lesion (239.2) 2013 Problem resolved confirmed [id number]- Plan Of Treatment Pending Test Test Name Order Date Basic Metabolic Panel (BMP) 46025 2023 Ferritin 89557 01/31/2024 Hemoglobin 85151 01/31/2024 Iron Binding Capacity Total 74028 2023 Iron Level 99448 01/31/2024 Magnesium (B) 12906 01/31/2024 Phosphorus (B) 31308 01/31/2024 Protein (U) Random 92973 01/31/2024 Uric Acid (B) 34010 01/31/2024 Vitamin D Total (B) 16424 01/31/2024 Albumin (U) / Body Fluid 82845 Creatinine (U) 23124 01/31/2024 UA Reflex Micro, Reflex Cult 03106, 8101 5, 09712 01/31/2024 PTH Intact 69709 01/31/2024 % Iron Saturation (Fe & TIBC)--07556,835 50 01/31/2024 Future Test Test Name Order Date Albumin 16204 07/11/2024 Basic Metabolic Panel (BMP) 37936 2023 Ferritin 82444 07/11/2024 Hemoglobin 55083 07/11/2024 Iron Binding Capacity Total 60578 2023 Iron Level 81943 07/11/2024 Magnesium (B) 23714 07/11/2024 Phosphorus (B) 15471 07/11/2024 Protein (U) Random 67817 07/11/2024 Uric Acid (B) 65726 07/11/2024 Vitamin D Total (B) 08421 07/11/2024 Creatinine (U) 09245 07/11/2024 UA Reflex Micro, Reflex Cult 03314, 8101 5, 45381 07/11/2024 PTH Intact 06142 07/11/2024 % Iron Saturation (Fe & TIBC)--25664,835 50 07/11/2024 Insurance Providers Payer Name Payer Address Payer Phone Subscriber Number Group Number Insured Name Patient Relationship to Insured Coverage Start Date Coverage End Date [facility] Medicare Dual Complete PPO [address] [address] [place] [address] [id number] Abimael Cochran Self - patient is the [...]
--- OUTSIDE RECORDS SUMMARY | 2025-10-07 12:17 | XMS_ITS | Encounter Summary ---
Author Organization [facility] Address [address] [place] [address] Care Team Providers Care Make Up Artist Name Role Phone Osmani Contreras MD Primary Care Provider [phone] Encounter Details Date Type Department Care Team (Latest Contact Info) Description 07/25/2004 Outpatient Historical [facility] [address] [place] [phone] Sarwat Naidu MD [address] [place] [phone] HYPERTENSION NOS (Primary Dx) Social History Tobacco Use Types Packs/Day Years Used Date Smoking Tobacco: Never Assessed Sex and Gender Information Value Date Recorded Sex Assigned at Not on file 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 Gender Identity Not on file Sexual Orientation Not on file documented as of this encounter Plan of Treatment Not on file documented as of this encounter Visit Diagnoses Diagnosis Unspecified essential hypertension- Primary documented in this encounter Additional Health Concerns Infection Onset Date Last Indicated Resolved Time C Diff Comment:Resolved 09/08/2018, Infection Prevention 03/11/16 ([facility]) 03/25/2016 03/25/2016 8 7:46 AM MACHINE PULLER AND LASTER documented as of this encounter Care Teams Make Up Artist Relationship Specialty Start Date End Date Osmani Contreras MD [address] [place] [address] PCP - General Family Practice 12/04/15 documented as of this encounter
--- OUTSIDE RECORDS SUMMARY | 2025-10-07 12:17 | XMS_ITS | Encounter Summary ---
Author Organization [facility] Address [address] [facility] [place] [address] Care Team Providers Care Resident Care Aide Name Role Phone Osmani Contreras MD Primary Care Provider [phone] Encounter Details Date Type Department Care Team (Latest Contact Info) Description 09/08/2004 Outpatient Historical [facility] [address] [place] [phone] Sarwat Naidu MD [address] [place] [phone] ABDOMINAL PAIN UNSPEC SITE (Primary Dx); HYPERTENSION NOS Social History Tobacco Use Types Packs/Day Years Used Date Smoking Tobacco: Never Assessed Sex and Gender Information Value Date Recorded Sex Assigned at Not on file Legal Sex Male 3:06 AM DATA MANAGEMENT CONSULTANT Gender Identity Not on file Sexual Orientation Not on file documented as of this encounter Plan of Treatment Not on file documented as of this encounter Visit Diagnoses Diagnosis Abdominal pain, unspecified site- Primary Unspecified essential hypertension documented in this encounter Additional Health Concerns Infection Onset Date Last Indicated Resolved Time C Diff Comment:Resolved 09/08/2018, Infection Prevention 03/11/16 ([facility]) 03/25/2016 03/25/2016 8 7:46 AM DATA MANAGEMENT CONSULTANT documented as of this encounter Care Teams Resident Care Aide Relationship Specialty Start Date End Date Osmani Contreras MD [address] [place] [address] PCP - General Family Practice 12/04/15 documented as of this encounter
--- OUTSIDE RECORDS SUMMARY | 2025-10-07 12:17 | XMS_ITS | Encounter Summary ---
[facility] Address [address] [place] [address] Care Team Providers Care Hand Wood Sander Name Role Phone Osmani Contreras MD Primary Care Provider [phone] Encounter Details Date Type Department Care Team (Latest Contact Info) Description 08/04/1999 Outpatient Historical [facility] Bharathi Walker MD [address] [facility] [address] [place] [address] Abdominal pain, right upper quadrant (Primary Dx); Abdominal pain, epigastric Social History Tobacco Use Types Packs/Day Years Used Date Smoking Tobacco: Never Assessed Sex and Gender Information Value Date Recorded Sex Assigned at Not on file Legal Sex Male 3:06 AM ADHESION TESTER Gender Identity Not on file Sexual Orientation Not on file documented as of this encounter Plan of Treatment Not on file documented as of this encounter Visit Diagnoses Diagnosis Abdominal pain, right upper quadrant- Primary Abdominal pain, epigastric documented in this encounter Additional Health Concerns Infection Onset Date Last Indicated Resolved Time C Diff Comment:Resolved 09/08/2018, Infection Prevention 03/11/16 ([facility]) 03/25/2016 03/25/2016 8 7:46 AM ADHESION TESTER documented as of this encounter Care Teams Hand Wood Sander Relationship Specialty Start Date End Date Osmani Contreras MD [address] [place] [address] PCP - General Family Practice 12/04/15 documented as of this encounter
--- OUTSIDE RECORDS SUMMARY | 2025-10-07 12:17 | XMS_ITS | Encounter Summary ---
Author Organization [facility] Address [address] [place] [address] Care Team Providers Care Big Data Engineer Name Role Phone Osmani Contreras MD Primary Care Provider [phone] Encounter Details Date Type Department Care Team (Late st Contact Info) Description 07/08/2004 Outpatient Historical [facility] [address] [place] [phone] Ger Fabian MD [address] [place] [address] Social History Tobacco Use Types Packs/Day Years Used Date Smoking Tobacco: Never Assessed Sex and Gender Information Value Date Recorded Sex Assigned at Not on file Legal Sex Male 3:06 AM NETWORK/TELECOM ENGINEER Gender Identity Not on file Sexual Orientation Not on file documented as of this encounter Plan of Treatment Not on file documented as of this encounter Visit Diagnoses Not on filedocumented in this encounter Additional Health Concerns Infection Onset Date Last Indicated Resolved Time C Diff Comment:Resolved 09/08/2018, Infection Prevention 03/11/16 ([facility]) 03/25/2016 03/25/2016 8 7:46 AM NETWORK/TELECOM ENGINEER documented as of this encounter Care Teams Big Data Engineer Relationship Specialty Start Date End Date Osmani Contreras MD [address] [place] [address] PCP - General Family Practice 12/04/15 documented as of this encounter
[2025-10-07 12:20] VITALS: BP 194/110; PULSE 99; RESP 26; O2SAT 94
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
--- NOTE | 2025-10-07 12:27 | CTR_ITS ---
PROCEDURE INFORMATION: Exam: CT Head Without Contrast Exam date and time: 10/07/2025 12:32 PM Age: 55 years old Clinical indication: Other: New seizure TECHNIQUE: Imaging protocol: Computed tomography of the head without contrast. Radiation optimization: All CT scans at this facility use at least one of these dose optimization techniques: automated exposure control; mA and/or kV adjustment per patient size (includes targeted exams where dose is matched to clinical indication); or iterative reconstruction. COMPARISON: No relevant prior studies available. RADIATION DOSE METRICS: Total DLP (mGy-cm): 920.48 FINDINGS: Brain: There is mild diffuse parenchymal volume loss. No intracranial hemorrhage, ischemic change, or abnormal calcification is apparent. The brain is developmentally normal with the exception of a probable arachnoid cyst overlying the posterosuperior left frontoparietal region, measuring 32.6 x 20.5 x of the 17.2 mm in AP, right left, and craniocaudal dimension. This is of doubtful clinical significance. Cerebral ventricles: No ventriculomegaly. Paranasal sinuses: Visualized sinuses are unremarkable. No fluid levels. Mastoid air cells: Visualized mastoid air cells are well aerated. Bones: Unremarkable. No acute fracture. Soft tissues: Unremarkable. CT/CT head wo con* [id number] IMPRESSION: 1. No evidence of acute intracranial pathology. 2. Suspect developmental arachnoid cyst, posterior left frontoparietal region.
[2025-10-07 12:30] LABS: Hematocrit 36.5 % (37-53); Hemoglobin 11.60 g/dL (11.27-16.99); Mean Corpuscular HGB Conc 31.8 g/dL (30-55); Mean Corpuscular Hemoglobin 26.5 pg (27-33); Mean Corpuscular Volume 83.3 fl (82-101); Nucleated Red Blood Cells % 0 %; Platelet Count 131 10^3/cmm (157-399); Red Blood Count 4.38 10^6/uL (3.85-5.65); White Blood Count 7.00 10^3/uL (3.29-11.43)
[2025-10-07 12:41] LABS: Alanine Aminotransferase 17 U/L (0-41); Albumin Level 4.3 g/dL (3.5-5.2); Alkaline Phosphatase 104 U/L (40-130); Anion Gap 26.8 (5-19); Aspartate Amino Transferase 18 U/L (0-40); Blood Urea Nitrogen 57 mg/dL (6-20); Calcium 8.9 mg/dL (8.5-10.5); Carbon Dioxide 16 mmol/L (22-29); Chloride 98 mmol/L (98-107); Globulin 2.5 g/dL (1.3-4.6); Glucose 161 mg/dL (65-115); Lactic Sepsis W/Reflex 3.4 mmol/L (0.5-2.2); Osmolality Calculated 301 mOsm/kg (285-295); Potassium 4.8 mmol/L (3.5-5.1); Sodium 136 mmol/L (136-145); Total Protein 6.8 g/dL (6.6-8.7)
[2025-10-07 12:42] LABS: Alcohol Level < 10 mg/dL (0-10)
[2025-10-07 12:53] LABS: Reflex Lactate Order REFLEX LACTIC ORDERD
[2025-10-07 13:16] VITALS: BP 205/113; PULSE 88; RESP 22; O2SAT 99
[2025-10-07] MEDS: levETIRAcetam 500 MG/100 ML PREMIX 400 MG IV (13:16)
[2025-10-07 13:30] VITALS: BP 211/115; PULSE 98; RESP 27; O2SAT 97
[2025-10-07 13:53] LABS: Glucose Urine UA 2+ (Normal); Nitrate Urine Negative (Negative); Specific Gravity, Urine 1.014 (1.005-1.030)
[2025-10-07 13:58] LABS: Add Urine Microscopic? YES
[2025-10-07 14:01] LABS: PCP Screen Urine Negative (Negative)
[2025-10-07] MEDS: NIFEdipine ER (24 hr) 30 mg Tablet 60 MG PO (14:44)
[2025-10-07 14:55] VITALS: BP 192/114; PULSE 102; O2SAT 98
--- NOTE | 2025-10-09 08:54 | DCPLANNER ---
Referral sent to [facility]
== END 2025-10-07 15:01 | disposition home or self-care (01) ==
PROVIDERS: Emergency Provider Physician Assistant; PCP Nurse Practitioner Family
DX: G40.909 Epilepsy, unspecified, not intractable, without status epilepticus (principal); R93.0 Abnormal findings on diagnostic imaging of skull and head, not elsewhere classified; Z79.02 Long term (current) use of antithrombotics/antiplatelets; Z79.82 Long term (current) use of aspirin; Z87.891 Personal history of nicotine dependence; I25.119 Atherosclerotic heart disease of native coronary artery with unspecified angina pectoris; E11.22 Type 2 diabetes mellitus with diabetic chronic kidney disease; I12.9 Hypertensive chronic kidney disease with stage 1 through stage 4 chronic kidney disease, or unspecified chronic kidney disease; N18.9 Chronic kidney disease, unspecified
CPT/HCPCS: 70450; 80053; 80306; 80307; 81001; 83605; 84146; 85025; 93005; 96365; 96375; 99285; J1100; J1953; J9999

== ENCOUNTER 2025-10-07 18:38 | Observation (INO) | payer MEDICARE, MEDICAID, SELFPAY ==
--- OUTSIDE RECORDS SUMMARY | 2024-08-05 03:00 | XMS_ITS ---
Author Organization [facility] Address [address] [place] [address] Care Team Providers Care Dye House Hand Name Role Phone Horne Funmilayo CANTU Primary Care Provider Unavailab Alverto Crocker Unavailable [phone] Migration, Provider Unavailable Unavailable REASON FOR VISIT EMR-Marcellus Encounters Encounter Location Date Provider Diagnosis Migrated_Facility 0 0 08/05/2024 Provider Migration Plan Of Treatment No Information Progress Notes * Abimael SAHU GDOB:1970 (55 yo M)Acc No.[id number]:08/05/2024 Patient: Jose Abimael ARAUJO :1970 A ge:54 Y S ex:Male Address:[address] [place], [address] Subjective: * Chief Complaints: * E MR-Marcellus * * Date:
--- OUTSIDE RECORDS SUMMARY | 2024-08-06 03:00 | XMS_ITS ---
Author Organization [facility] Address [address] [place] [address] Care Team Providers Care Emergency Department Director Name Role Phone Horne Funmilayo CANTU Primary Care Provider Unavailab Alverto Crocker Unavailable [phone] Migration, Provider Unavailable Unavailable Allergies Allergen (clinical drug ingredient) Drug/Non Drug Allergy documented on EMR Reaction Allergy Type Onset Date Status diphenhydramine Benadryl Unknown Drug Allergy A ctive INVanz Unknown Drug Allergy Active Novocain Unknown Drug Allergy Active hydralazine Hydralazine incontienence Drug Allergy Active REASON FOR VISIT EMR-Marcellus Encounters Encounter Location Date Provider Diagnosis Migrated_Facility 0 0 08/06/2024 Provider Migration Plan Of Treatment No Information Progress Notes * Abimael SAHU GDOB:1970 (55 yo M)Acc No.[id number]:08/06/2024 Patient: Jose Abimael ARAUJO Stacie :1970 A ge:54 Y S ex:Male Address:[address] [place], [address] Subjective: * Chief Complaints: * E MR-Marcellus * Allergies: N ovocain: AllergyBenadryl: Allergy - Criticality HighINVanz: AllergyHydralazine: incontienence - Allergy * * Date:
[2025-01-03 10:37] VITALS: BP 146/81; BMI 28.8
[2025-10-07] VITALS (7 sets, daily range): BP systolic 152–178; BP diastolic 80–92; PULSE 80–84; RESP 16; TEMP 36.3; O2SAT 96–98
--- OUTSIDE RECORDS SUMMARY | 2025-10-07 18:47 | XMS_ITS | Encounter Summary ---
Author Organization [facility], [facility] Address [address] [place] [address] Phone Care Team Providers Care Welfare Centre Manager Name Role Phone Unavailable Primary Care Provider Unavailabl e Encounter Details Date Type Department Care Team (Late st Contact Info) Description 04/23/2025 TCM in Dialysis Clinic [email or web address], [facility] [address] [place] [address] Vania Dudley NP [address] [place] [address] Social History Tobacco Use Types [...] 04/23/2025 The patient was seen for a qpgf-bo-dmth visit as part of Transitional Care Management services. Primary cause of renal failure: I12.9 - Hypertensive chronic kidney disease with stage 1 through stage 4 chronic kidney disease, or unspecified chronic kidney disease Attending Conduit Worker: NATE SAHU Dialysis Location: [facility] [...] 97.6*F Current Dialysis Vitals BP Sit: 181/88 AP/REWORK OPERATOR: -- Pulse: 71 CARE COORDINATION Post-discharge follow-up appointments reviewed with the patient. Established or re-established referrals. COMMENTS: fistulogram IMPRESSION & PLAN COMMENTS: CP- heart cath s/p stent placement. Started Imdur ESRD- using CVC. Will have fistulogram done soon. HD per MWF. VISIT DIAGNOSES CPT Code 08271 - High complexity, seen within 7 days [...]
--- OUTSIDE RECORDS SUMMARY | 2025-10-07 18:48 | XMS_ITS | Encounter Summary ---
Author Organization [facility] Address [address] [place] [address] Care Team Providers Care Ground Service Equipment Mechanic Name Role Phone Osmani Contreras MD Primary Care Provider [phone] Encounter Details Date Type Department Care Team (Late st Contact Info) Description 07/08/2004 Outpatient Historical [facility] [address] [place] [phone] Ger Fabian MD [address] [place] [address] Social History Tobacco Use Types Packs/Day Years Used Date Smoking Tobacco: Never Assessed Sex and Gender Information Value Date Recorded Sex Assigned at Not on file Legal Sex Male 3:06 AM TYING IN MACHINE OPERATOR Gender Identity Not on file Sexual Orientation Not on file documented as of this encounter Plan of Treatment Not on file documented as of this encounter Visit Diagnoses Not on filedocumented in this encounter Additional Health Concerns Infection Onset Date Last Indicated Resolved Time C Diff Comment:Resolved 09/08/2018, Infection Prevention 03/11/16 ([facility]) 03/25/2016 03/25/2016 8 7:46 AM TYING IN MACHINE OPERATOR documented as of this encounter Care Teams Ground Service Equipment Mechanic Relationship Specialty Start Date End Date Osmani Contreras MD [address] [place] [address] PCP - General Family Practice 12/04/15 documented as of this encounter
--- OUTSIDE RECORDS SUMMARY | 2025-10-07 18:48 | XMS_ITS | Encounter Summary ---
Author Organization [facility] Address [address] [facility] [address] Care Team Providers Care Enamel Machine Operator Name Role Phone Osmani Contreras MD Primary Care Provider [phone] Encounter Details Date Type Department Care Team (Latest Contact Info) Description 07/25/2004 [facility] [address] [place] [phone] Sarwat Naidu MD [address] [place] [phone] HYPERTENSION NOS (Primary Dx) Social History Tobacco Use Types Packs/Day Years Used Date Smoking Tobacco: Never Assessed Sex and Gender Information Value Date Recorded Sex Assigned at Not on file Legal Sex Male 3:06 AM HEAD OF BIOLOGY Gender Identity Not on file Sexual Orientation Not on file documented as of this encounter Plan of Treatment Not on file documented as of this encounter Visit Diagnoses Diagnosis Unspecified essential hypertension- Primary documented in this encounter Additional Health Concerns Infection Onset Date Last Indicated Resolved Time C Diff Comment:Resolved 09/08/2018, Infection Prevention 03/11/16 ([facility]) 03/25/2016 03/25/2016 8 7:46 AM HEAD OF BIOLOGY documented as of this encounter Care Teams Enamel Machine Operator Relationship Specialty Start Date End Date Osmani Contreras MD [address] [place] [address] PCP - General Family Practice 12/04/15 documented as of this encounter
--- OUTSIDE RECORDS SUMMARY | 2025-10-07 18:48 | XMS_ITS | Encounter Summary ---
Author Organization [facility] [place] Address [address] [facility] [address] [place] [address] Phone Care Team Providers Care Railroad Emergency Services Manager Name Role Phone Unavailable Primary Care Provider Unavailabl e Reason for Visit * Reason Comments Med Refill Encounter Details Date Type Department Care Team (Late st Contact Info) Description 09/[facility]2025 [facility] [place] [address] [facility] [address] [place] [address] Beatrice Young NP [address] [facility] [place] [facility] [address] [place] [address] Social History Tobacco Use Types [...]
--- OUTSIDE RECORDS SUMMARY | 2025-10-07 18:48 | XMS_ITS | Clinical Summary ---
Author Organization [facility] Address [address] [facility] Attn: [place] [address] Care Team Providers Care Certified Physical Therapist Assistant Name Role Phone Osmani Contreras MD Primary Care Provider [phone] Allergies Active Allergy Reactions Criticality Noted Date [...] Spasm. 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 1 Each 0 6 Active albuterol sulfate [...] 2 Active fluticasone propionate (FLONASE) 50 mcg/spray [place], Suspension nasal inhaler 2 Active aspirin (ECOTRIN EC) 81 mg Tablet, Delayed Release (E.C.) Take 81 mg by mouth daily. Active Alpha Lipoic Acid 200 mg Tablet Take 1 Tablet by mouth 2 times daily. 4 Active busPIRone (BUSPAR) 10 mg tablet Take 1 Tablet by mouth 2 times daily. 4 Active Dpqcbnul-EBA-9 0.1 mg/24 hr patch Apply 1 Patch [...] (02/06/2021): Added automatically from request for surgery [id number] Chronic left-sided low back pain without sciatic [...] Description 08/09/2025 12:50 PM CDT Office Visit [facility] [place] [address] [place] [address] Carol Morales MD Type 2 diabetes mellitus [...] on file Legal Sex Male 7:30 AM PLANT GENERAL MANAGER Gender Identity Not on file Sexual [...] st Contact Info) Description 08/15/2026 11:00 AM PLANT GENERAL MANAGER Office Visit [facility] [place] [address] [place] [address] Carol Morales MD [address] [place] [address] Health Maintenance Due Date Last [...] Completed 03/22/2016 Medical Devices Implanted Type Area Rubber Grinder Device Identifier Shelf Expiration Date Model / Serial / Lot Clip Ligating [facility] Med Ti 097635 - [facility] [place] [id number] Implanted:Qty: 1 on 12/28/2024 by Francoise Kinney MD at [facility] Clip Left: Arm TELEFLEX- WECK CLOSURE SYS [id number] 07/18/2029 [id number] / / [id number] Clip Ligating Horizon Red 103448 - Csc - [id number] Implanted:Qty: 1 on 12/28/2024 by Francoise Kinney MD at [facility] Clip Left: Arm [employer] INC [id number] 09/02/2029 [id number] / / [id number] Coil Emb María .035 6mm 14cm Micro Pltnm [id number] - [id number] Implanted:Qty: 1 on 05/10/2025 by Sanjeev Espinosa MD at [facility] Coil Left: Vein COOK- INTERVENTIONAL RAD [id number] 02/22/2030 [id number] / / [id number] Coil Emb María .035 6mm 14cm Micro Pltnm F38922 - [id number] Implanted:Qty: 1 on 05/10/2025 by Sanjeev Espinosa MD at [facility] Coil Left: Vein COOK- INTERVENTIONAL RAD [id number] 02/12/2030 [id number] / / [id number] Coil Interlock-35 360 6.8fsf49ju [id number] - [id number] Implanted:Qty: 1 on 05/10/2025 by Sanjeev Espinosa MD at [facility] Coil Left: Vein [employer]- NEUROVASC [id number] 04/14/2027 [id number] / / [id number] Coil Emb María .035 6mm 14cm Micro Pltnm V58733 - [id number] Implanted:Qty: 1 on 05/10/2025 by Sanjeev Espinosa MD at [facility] Coil Left: Vein COOK- INTERVENTIONAL RAD [id number] 02/12/2030 [id number] / / [id number] Coil Emb María .035 6mm 14cm Micro Pltnm U50090 - [id number] Implanted:Qty: 1 on 05/10/2025 by Sanjeev Espinosa MD at [facility] Coil Left: Vein COOK- INTERVENTIONAL RAD [id number] 02/12/2030 [id number] / / [id number] Coil Emb María .035 6mm 14cm Micro Pltnm W33425 - [id number] Implanted:Qty: 1 on 05/10/2025 by Sanjeev Espinosa MD at [facility] Coil Left: Vein COOK- INTERVENTIONAL RAD [id number] 02/12/2030 [id number] / / [id number] Coil Emb María .035 6mm 14cm Micro Pltnm Z67596 - [id number] Implanted:Qty: 1 on 05/10/2025 by Sanjeev Espinosa MD at [facility] Coil Left: Vein COOK- INTERVENTIONAL RAD [id number] 02/12/2030 [id number] / / [id number] Coil Emb María .035 6mm 14cm Micro Pltnm D44642 - [id number] Implanted:Qty: 1 on 05/10/2025 by Sanjeev Espinosa MD at [facility] Coil Left: Vein COOK- INTERVENTIONAL RAD [id number] 02/22/2030 [id number] / / [id number] Screw Hex Int Rc Bl 6.4x110 [id number] - [id number] Implanted:Qty: 1 on 03/30/2019 by Colt Garza MD Screw Right: Femur FOWLER [employer]PHEW ORTHO 07/30/2025 [id number] / / [id number] Screw Hex Int Rc Bl 6.4x115 [id number] - [id number] Implanted:Qty: 1 on 03/30/2019 by Colt Garza MD Screw Right: Femur FOW[employer] NEPHEW ORTHO 01/08/2022 [id number] / / [id number] Screw Trgn Lp 5.0x50mm [id number] - [id number] Implanted:Qty: 1 on 03/30/2019 by Colt Garza MD Screw Right: Femur [employer]OW[employer]ER NEPHEW ORTHO 02/11/2029 [id number] / / [id number] Screw Trgn Lp 5.0x60mm 6138-8430 - [id number] Implanted:Qty: 1 on 03/30/2019 by Colt Garza MD Screw Right: Femur [employer]OW[employer]PHEW ORTHO 10/11/2026 [id number] / / [id number] Nail Implanted:Qty: 1 on 03/30/2019 by Colt Garza MD Right: Femur [employer]PHEW ORTHO 08/10/2020 [id number] / / [id number] Explanted Type Area Rubber Grinder Device Identifier Shelf Expiration Date Model / Serial / Lot Nail Fan Jud Rt 11.7moq66tx [id number] - [id number] Implanted:Qty: 1 on 09/07/2018 by Colt Garza MD Explanted:Qty: 1 on 03/30/2019 by Colt Garza MD Nail Right: Femur [employer]PHEW ORTHO 10/04/2025 [id number] / / [id number] Description:INV Screw Hex Int Rc Bl 6.4x110 [id number] - [id number] Implanted:Qty: 1 on 09/07/2018 by Colt Garza MD Explanted:Qty: 1 on 03/30/2019 by Colt Garza MD Screw Right: Femur [employer]OW[employer]ER [employer]PHEW ORTHO 05/19/2027 [id number] / / [id number] Description:INV Screw Hex Int Rc Bl 6.4x115 [id number] - [id number] Implanted:Qty: 1 on 09/07/2018 by Colt Garza MD Explanted:Qty: 1 on 03/30/2019 by Colt Garza MD Screw Right: Femur FOWLER NEPHEW ORTHO 12/08/2019 [id number] / / [id number] Description:INV Screw Trgn Lp 5.0x47.5mm 5319-4030 - [id number] Implanted:Qty: 1 on 09/07/2018 by Colt Garza MD Explanted:Qty: 1 on 03/30/2019 by Colt Garza MD Screw Right: Femur FOWLER NEPHEW ORTHO 02/03/2028 [id number] / / [id number] Description:INV Screw Trgn Lp 5.0x52.5mm 6523-4969 - [id number] Implanted:Qty: 1 on 09/07/2018 by Colt Garza MD Explanted:Qty: 1 on 03/30/2019 by Colt Garza MD Screw Right: Femur FOWLER NEPHEW ORTHO 03/13/2028 [id number] / / [id number] Description:INV Procedures Procedure Name Priority Date/Time Associated Diagnosis Comments OCT, RETINA - OU - BOTH EYES Routine 08/09/2025 12:51 PM CDT Type 2 diabetes mellitus with both eyes affected by mild nonproliferative retinopathy without macular edema, with long-term current use of insulin ([facility]) EYE DROPS Routine 08/09/2025 12:36 PM CDT Type 2 diabetes mellitus with both eyes affected by mild nonproliferative retinopathy without macular edema, with long-term current use of insulin ([facility]) HEMOGLOBIN A1C Routine 03/31/2019 10:[address] ABDOMEN PELVIS WO CONTRAST IP Routine 03/22/2016 10:33 PM CDT from Last 3 Months or Most Recently Relevant to Health Maintenance Results * OCT, RETINA - OU - BOTH EYES (08/09/2025 12:51 PM CDT) Narrative [facility] OPHTHALMOLOGY ORDERS - 08/09/2025 1:38 PM CDT Optical coherence tomography ordered to evaluate the status of the macula: Right Eye: trace diabetic macular edema at the nasal fovea, improving from previous. Left Eye: normal foveal contour us Carol Morales MD OPHTH TOMOGRAPHY Final Re sult [facility] OPHTHALMOLOGY ORDERS * EYE DROPS (08/09/2025 12:36 PM CDT) Narrative [facility] OPHTHAL[facility]Y-[place] - 08/09/2025 1:38 PM CDT Medications Eye Drops: 1 Drop phenylephrine 2.5 % Route: Topical NDC: 81185-905-92, Lot: [id number], Expiration date: 10/11/2025 1 Drop proparacaine 0.5 % Route: Topical NDC: 68356-277-19, Lot: [id number], Expiration date: 11/11/2026 1 Drop tropicamide 1 % Route: Topical NDC: 55869-417-70, Lot: [id number], Expiration date: 05/11/2026 Notes Eye drop orders per protocol for Basic Welder Gun Eye Exam (Dilated) 1 Drop proparacaine (OPHTHAINE) 0.5% ophthalmic solution prior to tonometry 1 Drop tropicamide (MYDRIACYL) 1% ophthalmic solution 1 Drop phenylephrine (AK-DILATE, MYDFRIN) 2.5% ophthalmic solution us Carol Morales MD OPH CLINIC PROCEDURES F inal Result Performing Organization Address City/[facility]/ZIP Co de Phone Number [facility] CL[facility] [id number] [address] [place] [address] * (ABNORMAL) HEMOGLOBIN A1C (03/31/2019 10:06 AM CDT) HEMOGLOBIN A1C 11.4(H) See comment % 03/31/2019 12:05 PM CDT [facility] [employer] [facility] EST. AVG GLUCOSE, A1C 280 mg/dL 03/31/2019 12:05 PM T [facility] Blood BLOOD SPECIMEN / Unknown Venipuncture / Unknown 03/31/2019 10:06 AM CDT 03/31/2019 10:33 AM CDT Narrative [facility] [employer] [facility] - 03/31/2019 12:05 PM CDT HGB A1C INTERPRETATION NORMAL: <5.7% PRE-DIABETES: 5.7 - 6.4% DIABETES: 6.5% OR GREATER us Priya Tomas MD CHEMISTRY ORDERAB LES Final Result Performing Organization Address City/[facility]/ZIP Co de Phone Number [facility] CLIA# [id number] [address] [place] [address] [facility] [employer] [facility] CLIA# [id number] [address] [place] [address] * CT ABDOMEN PELVIS WO CONTRAST (03/22/2016 [...] Most Recently Relevant to Health Maintenance Insurance [facility] DUAL COMPLETE H[place] [facility] [place] [address] [place] * Guarantor: ABIMAEL SAHU Account Type Relation to Patient Date of Phone Billing Address Personal/Family [address] [place] [address] [employer] Medicare Part D Advance Directives For more information, please contact: [phone] * Full Code (Latest Code Status on File) Date Activated Date Inactivated Comments 12/28/2024 5:56 AM 12/28/2024 12:08 PM Care Teams Certified Physical Therapist Assistant Relationship Specialty Start Date End Date Osmani Contreras MD [address] [place] [address] PCP - General Family Practice 12/04/15
--- OUTSIDE RECORDS SUMMARY | 2025-10-07 18:48 | XMS_ITS | Encounter Summary ---
Author Organization [facility], [facility] Address [address] [facility] [address] [place] [address] Phone Care Team Providers Care Director Of Email Marketing Name Role Phone Unavailable Primary Care Provider Unavailabl e Reason for Visit * Reason Comments Med Refill Encounter Details Date Type Department Care Team (Late st Contact Info) Description 09/28/[address] [facility] [address] [facility] [address] [place] [address] Beatrice Young NP [address] [facility] [employer] [facility] [address] [place] [address] Social History Tobacco Use Types [...]
--- OUTSIDE RECORDS SUMMARY | 2025-10-07 18:48 | XMS_ITS | Encounter Summary ---
Author Organization [facility] [employer] [facility] Address [address] [place] [address] Phone Care Team Providers Care Teacher Education Director Name Role Phone Unavailable Primary Care Provider Unavailabl e Encounter Details Date Type Department Care Team (Late st Contact Info) Description 09/26/2025 Orders Only [facility] [employer] [address] [place] [address] Shannon Cochran MD [address] [place] [address] Social History Tobacco Use Types [...] Results * Hemoglobin (09/26/2025) Hemoglobin OTH g/dL [facility] Comment: TEST NOT PERFORMED. An electronic test request was transmitted, but no specimen was received by the laboratory. Test has been cancelled. 09/26/2025 09/25/2025 7:5 0 AM DEHYDRATION PLANT OPERATOR Narrative Resulting Agency Comment Performing Organization Information: Site ID: [place] Name: [facility] Address: [address] [facility] [place] [address] Director: Sathya Coronado MD us Shannon Cochran MD LAB BLOOD ORDERABLES Final Re sult [facility] [address] [place] [address] documented in this encounter Visit Diagnoses Not on filedocumented in this encounter
--- OUTSIDE RECORDS SUMMARY | 2025-10-07 18:48 | XMS_ITS | Encounter Summary ---
Author Organization [facility] Address [address] [place] [address] Care Team Providers Care Lockstitch Sleeve Setter Name Role Phone Osmani Contreras MD Primary Care Provider [phone] Encounter Details Date Type Department Care Team (Latest Contact Info) Description 09/16/2004 Outpatient Historical [facility] [place] [address] [place] [address] Theodore Lugo MD [address] [place] [address] REFLUX ESOPHAGITIS (Primary Dx) Social History Tobacco Use Types Packs/Day Years Used Date Smoking Tobacco: Never Assessed Sex and Gender Information Value Date Recorded Sex Assigned at Not on file Legal Sex Male 3:06 AM RECTIFICATION PRINTER Gender Identity Not on file Sexual Orientation Not on file documented as of this encounter Plan of Treatment Not on file documented as of this encounter Visit Diagnoses Diagnosis Reflux esophagitis- Primary documented in this encounter Additional Health Concerns Infection Onset Date Last Indicated Resolved Time C Diff Comment:Resolved 09/08/2018, Infection Prevention 03/11/16 ([facility]) 03/25/2016 03/25/2016 8 7:46 AM RECTIFICATION PRINTER documented as of this encounter Care Teams Lockstitch Sleeve Setter Relationship Specialty Start Date End Date Osmani Contreras MD [address] [place] [address] PCP - General Family Practice 12/04/15 documented as of this encounter
--- OUTSIDE RECORDS SUMMARY | 2025-10-07 18:48 | XMS_ITS | Encounter Summary ---
Author Organization [facility] Address [address] [place] [address] Care Team Providers Care Shorthand Reporter Name Role Phone Osmani Contreras MD Primary Care Provider Encounter Details Date Type Department Care Team ([facility] st Contact Info) Description 07/25/2004 Outpatient Historical [facility] [address] [place] [phone] Sarwat Naidu MD [address] [place] [address] Social History Tobacco Use Types Packs/Day Years Used Date Smoking Tobacco: Never Assessed Sex and Gender Information Value Date Recorded Sex Assigned at Not on file Legal Sex Male 3:06 AM WIRE CHARGER Gender Identity Not on file Sexual Orientation Not on file documented as of this encounter Plan of Treatment Not on file documented as of this encounter Visit Diagnoses Not on filedocumented in this encounter Additional Health Concerns Infection Onset Date Last Indicated Resolved Time C Diff Comment:Resolved 09/08/2018, Infection Prevention 03/11/16 ([facility]) 03/25/2016 03/25/2016 8 7:46 AM WIRE CHARGER documented as of this encounter Care Teams Shorthand Reporter Relationship Specialty Start Date End Date Osmani Contreras MD [address] [place] [address] PCP - General Family Practice 12/04/15 documented as of this encounter
--- OUTSIDE RECORDS SUMMARY | 2025-10-07 18:48 | XMS_ITS | Encounter Summary ---
Author Organization [facility] Address [address] [place] [address] Care Team Providers Care Case Finisher Name Role Phone Osmani Contreras MD Primary Care Provider [phone] Encounter Details Date Type Department Care Team (Latest Contact Info) Description 08/04/1999 Outpatient Historical [facility] Bharathi Walker MD [address] [facility] [address] [place] [address] Abdominal pain, right upper quadrant (Primary Dx); Abdominal pain, epigastric Social History Tobacco Use Types Packs/Day Years Used Date Smoking Tobacco: Never Assessed Sex and Gender Information Value Date Recorded Sex Assigned at Not on file Legal Sex Male 3:06 AM PEST CONTROLLER ASSISTANT Gender Identity Not on file Sexual Orientation Not on file documented as of this encounter Plan of Treatment Not on file documented as of this encounter Visit Diagnoses Diagnosis Abdominal pain, right upper quadrant- Primary Abdominal pain, epigastric documented in this encounter Additional Health Concerns Infection Onset Date Last Indicated Resolved Time C Diff Comment:Resolved 09/08/2018, Infection Prevention 03/11/16 ([facility]) 03/25/2016 03/25/2016 8 7:46 AM PEST CONTROLLER ASSISTANT documented as of this encounter Care Teams Case Finisher Relationship Specialty Start Date End Date Osmani Contreras MD [address] [place] [address] PCP - General Family Practice 12/04/15 documented as of this encounter
--- OUTSIDE RECORDS SUMMARY | 2025-10-07 18:48 | XMS_ITS | Encounter Summary ---
Author Organization [facility] Address [address] [place] [address] Care Team Providers Care Gear Hobber Set Up Operator Name Role Phone Osmani Contreras MD Primary Care Provider [phone] Encounter Details Date Type Department Care Team (Late st Contact Info) Description 01/04/2012 Ancillary Orders [facility] [place] [address] [place] [address] Sick Social History Tobacco Use Types Packs/Day Years Used Date Smoking Tobacco: Never Assessed Sex and Gender Information Value Date Recorded Sex Assigned at Not on file Legal Sex Male 3:06 AM HOGSHEAD OPENER Gender Identity Not on file Sexual Orientation [...] growth) Streptococcus salivarius(A) 01/06/2012 6:27 PM CDT [facility] GRAM STAIN Few Gram positive cocci 01/06/2012 6:27 PM CDT [facility] GRAM STAIN No WBC's observed 012 6:27 PM CDT [facility] Wound drainage 01/04/2012 9: 00 PM CDT 01/04/2012 11:02 PM CDT Narrative [facility] - 01/06/2012 6:27 PM CDT Left great toe. Sensitivity not normally preformed. Chelsey Prince [facility] MICROBIOLOGY - GENERAL ORDE LANE Final Result [facility] [employer] [facility] CLIA # [id number] [address] [place] [phone] * (ABNORMAL) CBC WITH DIFFERENTIAL (01/04/2012 9:00 PM CDT) WBC 7.6 4.2 - 9.1 K/uL 01/04/2012 11:09 PM CDT [facility] RBC 5.33 4.63 - 6.08 M/uL 01/04/2012 11:09 PM [facility] [employer] [facility] HEMOGLOBIN 15.3 13.7 - 17.5 g/dL 01/04/2012 11:09 PM [facility] [employer] [facility] HEMATOCRIT 42.0 40.1 - 51.0 % 01/04/2012 11:09 PM T [facility] [employer] [facility] MCV 78.8(L) 79.0 - 92.2 fL 01/04/2012 11:09 PM CDT [facility] [employer] [facility] MCH 28.7 25.7 - 32.2 pg 01/04/2012 11:09 PM [facility] MCHC 36.4 32.3 - 36.5 g/dL 01/04/2012 11:09 PM [facility] [employer] [facility] RDW 12.8 11.0 - 14.5 % 01/04/2012 11:09 PM CDT [facility] [employer] [facility] RDW-STDEV 36.6 fL 01/04/2012 11:09 PM CDT [facility] [place] PLATELETS 265 130 - 400 K/uL 01/04/2012 11:09 PM CDT [facility] [place] MPV 10.6 10.0 - 14.8 fL 01/04/2012 11:09 PM CDT [facility] [place] NEUTROPHILS 49 34 - 68 % 01/04/2012 11:09 PM CDT [facility] [place] LYMPHOCYTES 40 22 - 53 % 01/04/2012 11:09 PM CDT [facility] [place] MONOCYTES 9 5 - 12 % 01/04/2012 11:09 PM CDT [facility] [place] EOSINOPHILS 2 1 - 7 % 01/04/2012 11:09 PM CDT [facility] [place] BASOPHILS 1 0 - 1 % 01/04/2012 11:09 PM CDT [facility] [place] NEUTROPHIL ABSOLUTE 3.72 1.78 - 5.38 K/uL 01/04/2012 11:09 PM CDT [facility] [place] LYMPHOCYTE ABSOLUTE 3.03 1.20 - 3.40 K/uL 01/04/2012 11:09 PM CDT [facility] [place] MONOCYTE ABSOLUTE 0.65 0.30 - 0.82 K/uL 01/04/2012 11:09 PM CDT [facility] [place] EOSINOPHIL ABSOLUTE 0.11 0.04 - 0.54 K/uL 01/04/2012 11:09 PM CDT [facility] [place] BASOPHILS ABSOLUTE 0.04 0.01 - 0.08 K/uL 01/04/2012 11:09 PM CDT [facility] [place] Blood specimen (specimen) 01/04/2012 9:00 PM CDT 01/04/2012 11:02 PM CDT Chelsey Prince [employer] HEMATOLOGY ORDERABLES Final Result [facility] [place] CLIA # [id number] [address] [place] [phone] * (ABNORMAL) LIPID PANEL (01/04/2012 9:00 PM CDT) CHOLESTEROL 231(H) 130 - 200 mg/dL 01/04/2012 11:32 PM CDT [facility] TRIGLYCERIDE 108 30 - 200 mg/dL 01/04/2012 11:32 PM CDT [facility] HDL 51 35 - 80 mg/dL 01/04/2012 11:32 PM CDT [facility] LDL CALCULATED 158(H) 0 - 100 mg/dL 01/04/2012 11:32 PM T [facility] Blood specimen (specimen) 01/04/2012 9:00 PM CDT 01/04/2012 11:02 PM CDT Narrative [facility] - 01/04/2012 11:32 PM CDT TOTAL CHOLESTEROL mg/dL Desirable <200 Borderline high 200-239 High >=240 TRIGLYCERIDES mg/dL Normal <150 Borderline high 150-199 High 200-499 Very high >=500 HDL CHOLESTEROL mg/dL Low <40 Normal 40-60 Desirable >60 LDL CHOLESTEROL mg/dL Optimal <100 Low risk 100-129 Borderline high 130-159 High 160-189 Very high >=190 Based on AHA/NCEP Guidelines Chelsey Prince [employer] CHEMISTRY ORDERABLES Final Result [facility] CLIA # [id number] [address] [place] [phone] * (ABNORMAL) BASIC METABOLIC PANEL (01/04/2012 9:00 PM CDT) SODIUM 134(L) 136 - 145 mmol/L 01/04/2012 11:32 PM T [facility] [employer] [facility] POTASSIUM 3.7 3.5 - 5.1 mmol/L 01/04/2012 11:32 PM CDT [facility] CHLORIDE 97(L) 98 - 107 mmol/L 01/04/2012 11:32 PM T [facility] [employer] [facility] CO2 29 21 - 32 mmol/L 01/04/2012 11:32 PM CDT [facility] CALCIUM 9.2 8.5 - 10.1 mg/dL 01/04/2012 11:32 PM T [facility] BUN 19(H) 7 - 18 mg/dL 01/04/2012 11:32 PM CDT [facility] CREATININE 0.90 0.60 - 1.30 mg/dL 01/04/2012 11:32 PM T [facility] GLUCOSE 234(H) 74 - 106 mg/dL 01/04/2012 11:32 PM T [facility] GFR 93 >=60 mL/min/1.7 3 sq meter 01/04/2012 11:32 PM T [facility] GFR, 113 >=60 mL/min/1.7 3 sq meter 01/04/2012 11:32 PM T [facility] Blood specimen (specimen) 01/04/2012 9:00 PM CDT 01/04/2012 11:02 PM CDT Narrative [facility] - 01/04/2012 11:32 PM CDT eGFR [...] patients with severe liver disease. Chelsey Prince [employer] CHEMISTRY ORDERABLES Final Result Performing Organization Address City/State/[facility] Co de Phone Number [facility] [id number] [address] [place] [phone] documented in this encounter Visit Diagnoses Diagnosis Sick Other unknown and unspecified cause of morbidity or mortality documented in this encounter Additional Health Concerns Infection Onset Date Last Indicated Resolved Time C Diff Comment:Resolved 09/08/2018, Infection Prevention 03/11/16 ([facility]) 03/25/2016 03/25/2016 8 7:46 AM HOGSHEAD OPENER documented as of this encounter Care Teams Gear Hobber Set Up Operator Relationship Specialty Start Date End Date Osmani Contreras MD [address] [place] [address] PCP - General Family Practice 12/04/15 documented as of this encounter
--- OUTSIDE RECORDS SUMMARY | 2025-10-07 18:48 | XMS_ITS | Encounter Summary ---
Author Organization [facility] Address [address] 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 Gender Identity Not on file Sexual Orientation Not on file documented as of this encounter Plan of Treatment Not on file documented as of this encounter Visit Diagnoses Diagnosis Unspecified essential hypertension- Primary documented in this encounter Additional Health Concerns Infection Onset Date Last Indicated Resolved Time C Diff Comment:Resolved 09/08/2018, Infection Prevention 03/11/16 ([facility]) 03/25/2016 03/25/2016 8 7:46 AM CAREER REPRESENTATIVE documented as of this encounter Care Teams Brazing Machine Operator Relationship Specialty Start Date End Date Osmani Contreras MD [address] [place] [address] PCP - General Family Practice 12/04/15 documented as of this encounter
--- OUTSIDE RECORDS SUMMARY | 2025-10-07 18:48 | XMS_ITS ---
Author Name [facility], Clinic Address [address] [place] [address] Phone [phone] Organization [facility] e, NA DOCUMENT DISCLAIMER Multiple document versions may exist, please be sure you review the latest version. The information in the [facility] Continuity of Care Document represents a summary of certain health and medical information. It may not contain the complete medical history for the patient and should be independently verified. The represented time in the document is Eastern Time. PROBLEMS Problem Code Status Onset Date Hypertensive chronic kidney disease with stage 5 chronic kidney disease or end stage renal disease I12.0 Active October 02, 2025 End stage renal disease N18.6 Active April 24, 2025 Unstable angina I20.0 Active April 24 End stage renal disease N18.6 Active Dece [id number] Secondary hyperparathyroidism of renal origin N25.81 Active September 05, 2024 Type 2 diabetes mellitus wit h unspecified complications E11.8 Active August 08, 2024 Hypotension of hemodialysis I95.3 Active July 31, 2024 Iron deficiency anemia, unspecified D50.9 Activ e July 24, 2024 Encounter for immunization Z23 Active O ctober 2023 Anemia in chronic kidney disease D63.1 Active July 13, 2024 Coagulation defect, unspecified D68.9 Active July 13, 2024 Allergy, unspecified, initial encounter T78.40XA A ctive July 13, 2024 Anaphylactic shock, unspecified, initial encounter T78 .2XXA Active July 13, 2024 Gastro-esophageal reflux dis ease without esophagitis K21.9 Active July 12, 2024 Dependence on renal dialysis Z99.2 Active July 07, 2024 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 hypoglycemic drugs Z79 .84 Active July 07, 2024 shelter (current) use of aspirin Z79.82 Active July 07, 2024 termination clerk (current) use of insulin Z79.4 Active July 07, 2024 Tobacco use Z72.0 Active July 07 024 Chronic kidney disease, unspecified N18.9 Activ e July 07, 2024 Hypertensive chronic kidney disease with stage 1 through stage 4 chronic kidney disease, or unspecified chronic kidney disease I12.9 Active Raj saul 2023 Generalized anxiety disorder F41.1 Active July 07, 2024 Major depressive disorder, r ecurrent severe without psychotic features F33.2 Active July 07, 2024 Hyperlipidemia, unspecified E78.5 Active July 07, 2024 Morbid (severe) obesity due to excess calories E66.01 Active July 07, 2024 Type 2 diabetes mellitus wit h diabetic polyneuropathy E11.42 Active July 07, 2024 Type 2 diabetes mellitus wit h diabetic chronic kidney disease E11.22 Active July 07, 2024 ALLERGIES AND ADVERSE REACTIONS Substance Reaction Severity Status Benadryl Allergy Unknown Active ertapenem Unknown Active SOCIAL HISTORY Tobacco Use Status Tobacco Type Unknown if ever consumed tobacco - Caregiver Characteristics No Information Available Characteristics of Home environment No Information Available Gender and Sex Information Gender Identity Sexual Orientation Male Decline to answer MEDICATIONS Prescribed Medications for Dialysis Treatments Medication Instructions Dosage Route Start Date End Date Stat us Heparin Sodium (Porcine) 1,000 Units/mL Catheter Lock Arterial Post Dialysis, Every Treatment 2500 units Arterial Red Port September 27, 2024 September 26, 2025 Active Heparin Sodium (Porcine) 1,000 Units/mL Catheter Lock Arterial Every Treatment 2500 units Arterial Red Port September 28, 2025 September 27, 2026 Active Heparin Sodium (Porcine) 1,000 Units/mL Catheter Lock Venous Post Dialysis, 3X Week 2400 units Venous Blue Port October 16, 2024 October 15, 2025 Active Heparin Sodium (Porcine) 1,000 Units/mL Systemic Bolus, Every Treatment, Total treatment minutes 240 6000 units Intravenous - push August 31, 2025 August 30, 2026 Active Mircera During Dialysis, Every 2 weeks 60 mcg Intravenous - push September 10, 2025 September 09, 2026 Discontinued Home Medications Medication Instructions Dosage Route Start Date End Date Stat us Adult Low Dose Aspirin 81 mg Take by mouth once a day 1 tablet ORAL August 07, 2024 Active albuterol sulfate 90 mcg/actuation Inhale as directed every six hours as needed 1 puff INHALATION August 07, 2024 Active alpha lipoic acid 200 mg Take by mouth twice a day 1 tablet ORAL October 01, 2024 Active atorvastatin 40 mg Take by mouth every night at bedtime 1 tablet ORAL August 07, 2024 Active buspirone 10 mg Take by mouth twice a day 1 tablet ORAL October 01, 2024 Active Cialis 20 mg as directed 1 tablet ORAL August 16, 2024 Active clopidogrel 75 mg Take by mouth once a day 1 tablet ORAL August 07, 2024 Active cyclobenzaprine 10 mg Take by mouth three times a day as needed 1 tablet ORAL April 30, 2016 Active duloxetine 60 mg Take by mouth once a day 1 capsule ORAL August 16, 2024 Active fluticasone furoate 50 mcg/actuation Inhale as directed twice a day 1 puff INHALATION August 07, 2024 Active hydralazine 100 mg Take by mouth twice a day 1 tablet ORAL November 08, 2024 Active hydroxyzine HCl 50 mg Take by mouth four times a day for anxiety 1 tablet ORAL November 15, 2024 Active isosorbide mononitrate 30 mg Take twice a day ORAL April 18, 2025 Active losartan 100 mg Take by mouth once a day 1 tablet ORAL November 15, 2024 Active megestrol 400 mg/10 mL (10 mL) Take by mouth once a day 10 ml ORAL January 17, 2025 Active metoprolol tartrate 100 mg Take by mouth twice a day 1 tablet ORAL November 08, 2024 Active nifedipine 60 mg Take by mouth once a day as directed 1 tablet ORAL August 08, 2024 Active nitroglycerin 0[address] under tongue every five minutes 1 tablet SUBLINGUAL April 24, 2025 Active Novolog FlexPen U-100 Insulin 100 unit/mL (3 mL) Inject subcutaneously three times a day with meals 1 unit SUBCUTANEOUS August 16, 2024 Active pregabalin 100 mg Take by mouth three times a day 1 capsule ORAL August 07, 2024 Active Renal Caps 1 mg Take by mouth once a day 1 capsule ORAL January 23, 2025 Active Renvela 800 mg Take by mouth three times a day with meals 1 tablet ORAL October 13, 2024 Active Rexulti 2 mg Take by mouth once a day 1 tablet ORAL August 07, 2024 Active sertraline 25 mg Take by mouth once a day 4 tablet ORAL October 01, 2024 Active sertraline 25 mg Take by mouth every evening 2 tablet ORAL October 01, 2024 Active Sevelamer Carbonate Tablet 800 mg Take By Mouth Three times a day With Meals 1 Tablet By Mouth October 13, 2024 October 16, 2025 Active tamsulosin 0.4 mg Take by mouth once a day as directed 1 capsule ORAL April 30, 2016 Active terazosin 10 mg Take by mouth every morning 1 capsule ORAL September 01, 2024 Active terazosin 5 mg Take by mouth every night 1 capsule ORAL June 27, 2025 Active Cass Max U-300 SoloStar 300 unit/mL (3 mL) Inject subcutaneously twice a day as directed 40 SUBCUTANEOUS October 01, 2024 Active trazodone 100 mg Take by mouth at bedtime as needed 4 tablet ORAL August 07, 2024 Active VITAL SIGNS Post-Treatment Vital Signs Vital Sign Value Date / Time Blood Pressure-sitting 141/75 mmHg October 02, 2025 06:43 AM Blood Pressure-standing 105/57 mmHg October 02, 2025 06:43 AM Heart Rate 70 beats per minute October 02, 2025 06:43 AM Respiratory Rate 16 breaths per minute October 02, 2025 06:43 AM Temperature 97.3 deg. F October 02 06:43 AM Weight Vital Sign Value Date / Time Estimated Dry Weight 102.4 kg September 11:59 PM Pre-Dialysis 102.90 kg October 02 06:43 AM Post-Dialysis 102.50 kg October 02 06:43 AM Other Other Value Date / Time Height 197 cm August 25 12:00 AM Body Mass Index 26.39 kg/m2 October 02 11:28 AM HEALTH CONCERNS Tuberculosis Testing TST Date Administered TST Date Read TST Result 07/17/2024 07/19/2024 No information a vailable LAB RESULTS Hematology Result Type Result Value Relevant Referen ce Range Interpretation Date UIBC/TIBC 129 mcg/dL 155 - 355 mcg/dL Low April 11, 2025 TIBC (Calc) 189 mcg/dL 185 - 515 mcg/dL - April Transferrin Sat. (Calc) 32 % 20 - 55 % - April 11, 2025 WBC (No Diff) 4.25 1000/mcL 4.80 - 10.80 1000/mcL Low April 11, 2025 Neutrophils 70.9 % 40.0 - 75.0 % - April 11 Platelets 123 1000/mcL 130 - 400 1000/mcL Low April 11, 2025 UIBC/TIBC 139 mcg/dL 155 - 355 mcg/dL Low May Transferrin Sat. (Calc) 16 % 20 - 55 % Low May 16, 2025 TIBC (Calc) 166 mcg/dL 185 - 515 mcg/dL Low May 16, 2025 Platelets 140 1000/mcL 130 - 400 1000/mcL - 2024 Neutrophils 71.1 % 40.0 - 75.0 % - May 16, 2025 WBC (No Diff) 4.17 1000/mcL 4.80 - 10.80 1000/mcL Low May 16, 2025 Ferritin 422 ng/mL 22 - 322 ng/mL High June 13, 2025 Neutrophils 70.5 % 40.0 - 75.0 % - June 13, 2025 WBC (No Diff) 3.69 1000/mcL 4.80 - 10.80 1000/mcL Low June 13, 2025 Platelets 142 1000/mcL 130 - 400 1000/mcL - Jun Transferrin Sat. (Calc) 34 % 20 - 55 % - June 13, 2025 UIBC/TIBC 131 mcg/dL 155 - 355 mcg/dL Low e r 2024 TIBC (Calc) 197 mcg/dL 185 - 515 mcg/dL - 2024 Hemoglobin x 3 32.1 % 42.0 - 54.0 % Low July 11, 2025 Platelets 121 1000/mcL 130 - 400 1000/mcL Low 2024 Lymphocytes 19.4 % 19.0 - 48.0 % - July Monocytes 6.5 % 3.0 - 10.0 % - July 11, 2025 Neutrophils 68.5 % 40.0 - 75.0 % - July RDW 16.6 % 11.5 - 14.5 % High July 11, 2025 Eosinophil 2.9 % 0.0 - 7.0 % - July 11, 025 MCH 26.8 pg 27.0 - 31.0 pg Low July MCHC 32.3 g/dL 30.0 - 36.0 g/dL - July 11, 2025 WBC (No Diff) 4.06 1000/mcL 4.80 - 10.80 1000/mcL Low July 11, 2025 Basophils 1.3 % 0.0 - 1.5 % - July 11, 2 025 LENNY 1.3 % 0.0 - 4.0 % - July 11, 2 025 Iron 48 mcg/dL 45 - 160 mcg/dL - July UIBC/TIBC 162 mcg/dL 155 - 355 mcg/dL - July 11, 2025 TIBC (Calc) 210 mcg/dL 185 - 515 mcg/dL - July 11, 2025 Transferrin Sat. (Calc) 23 % 20 - 55 % - July 11, 2025 Hemoglobin x 3 31.2 % 42.0 - 54.0 % Low July 18, 2025 Hemoglobin x 3 32.7 % 42.0 - 54.0 % Low August 01, 2025 Hemoglobin x 3 31.5 % 42.0 - 54.0 % Low August 08, 2025 Ferritin 493 ng/mL 22 - 322 ng/mL High July Platelets 133 Thousand/uL 140 - 400 Thousand/uL Low August 15, 2025 WBC (No Diff) 5.6 Thousand/uL 3.8 - 10.8 Thousand/uL Normal August 15, 2025 TIBC (Calc) 202 mcg/dL (calc) 250 - 425 mcg/dL (calc) Low August 15, 2025 Transferrin Sat. (Calc) 49 % (calc) 20 - 48 % (calc) High August 15 Iron 98 mcg/dL 50 - 180 mcg/dL Normal August 15, 2025 MCH 25.8 pg 27.0 - 33.0 pg Low August MCHC 31.0 g/dL 32.0 - 36.0 g/dL Low August 15, 2025 RDW 15.9 % 11.0 - 15.0 % High August WBC (No Diff) 5.6 Thousand/uL 3.8 - 10.8 Thousand/uL Normal August 15, 2025 Neutrophils 76.1 % No Reference Ran ge Provided Normal August 15, 2025 Lymphocytes 11.1 % No Reference Ran ge Provided Normal August 15, 2025 Monocytes 8.4 % No Reference Ran ge Provided Normal August 15, 2025 Eosinophil 3.1 % No Reference Ran ge Provided Normal August 15, 2025 Basophils 1.3 % No Reference Ran ge Provided Normal August 15, 2025 Hemoglobin x 3 32.1 No Reference Ran ge Provided Normal August 15, 2025 Hemoglobin x 3 30.9 No Reference Ran ge Provided Normal August 29, 2025 Hemoglobin x 3 31.8 No Reference Ran ge Provided Normal September 04, 2025 TIBC (Calc) 210 mcg/dL (calc) 250 - 425 mcg/dL (calc) Low September 12, 2025 Transferrin Sat. (Calc) 32 % (calc) 20 - 48 % (calc) Normal September 12 Iron 68 mcg/dL 50 - 180 mcg/dL Normal September 12, 2025 Basophils 1.2 % No Reference Ran ge Provided Normal September 12, 2025 Eosinophil 4.4 % No Reference Ran ge Provided Normal September 12, 2025 Monocytes 8.2 % No Reference Ran ge Provided Normal September 12, 2025 Lymphocytes 8.3 % No Reference Ran ge Provided Normal September 12, 2025 Neutrophils 77.9 % No Reference Ran ge Provided Normal September 12, 2025 WBC (No Diff) 7.8 Thousand/uL 3.8 - 10.8 Thousand/uL Normal September 12, 2025 RDW 16.2 % 11.0 - 15.0 % High September MCHC 31.2 g/dL 31.6 - 35.4 g/dL Low September 12, 2025 MCH 26.3 pg 27.0 - 33.0 pg Low September HCT 32.4 % 39.4 - 51.1 % Low September HGB 10.1 g/dL 13.2 - 14.0 g/dL Low September 12, 2025 RBC 3.84 Million/uL 4.20 - 5.80 Million/uL Low September 12, 2025 WBC (No Diff) 7.8 Thousand/uL 3.8 - 10.8 Thousand/uL Normal September 12, 2025 Platelets 123 Thousand/uL 140 - 400 Thousand/uL Low September 12, 2025 Ferritin 654 ng/mL 38 - 380 ng/mL High September Hemoglobin x 3 30.3 No Reference Ran ge Provided Normal September 12, 2025 HGB 10.1 g/dL 13.2 - 14.0 g/dL Low September 19, 2025 Hemoglobin x 3 30.3 No Reference Ran ge Provided Normal September 19, 2025 HGB 11.4 g/dL 13.2 - 14.0 g/dL Low October 02, 2025 Hemoglobin x 3 34.2 No Reference Ran ge Provided Normal October 02, 2025 Metabolic/Renal Result Type Result Value Relevant Referen ce Range Interpretation Date URR, Calc 72 % 65 - 80 % - July 11 25 BUN, Post 8 mg/dL 6 - 19 mg/dL - July 11, 2025 BUN 29 mg/dL 6 - 19 mg/dL High July 11, 2025 Creatinine, Serum 5.98 mg/dL 0.60 - 1.30 mg/dL High July 11, 2025 BUN/Creat Ratio 4.8 10.0 - 20.0 Low July 11, 2025 Sodium 136 mEq/L 136 - 145 mEq/L - July Potassium 4.3 mEq/L 3.5 - 5.1 mEq/L - July Chloride 99 mEq/L 96 - 108 mEq/L - July Bicarbonate 27 mEq/L 22 - 29 mEq/L - July Bicarbonate 27 mEq/L 22 - 29 mEq/L - July BUN/Creat Ratio 4.7 10.0 - 20.0 Low July 18, 2025 Chloride 99 mEq/L 96 - 108 mEq/L - July BUN 28 mg/dL 6 - 19 mg/dL High July 18, 2025 Creatinine, Serum 6.01 mg/dL 0.60 - 1.30 mg/dL High July 18, 2025 Bicarbonate 27 mEq/L 22 - 29 mEq/L - July Creatinine, Serum 5.81 mg/dL 0.60 - 1.30 mg/dL High August 01, 2025 Chloride 99 mEq/L 96 - 108 mEq/L - July BUN 23 mg/dL 6 - 19 mg/dL High August 03, 2025 URR, Calc 78 % 65 - 80 % - August 03 BUN, Post 5 mg/dL 6 - 19 mg/dL Low August 03, 2025 Bicarbonate 25 mEq/L 22 - 29 mEq/L - July Creatinine, Serum 5.64 mg/dL 0.60 - 1.30 mg/dL High August 08, 2025 Chloride 98 mEq/L 96 - 108 mEq/L - July URR, Calc 72.5 No Reference Ran ge Provided Normal August 15, 2025 BUN, Post 11 mg/dL 7 - 25 mg/dL Normal August 15, 2025 BUN 40 mg/dL 7 - 25 mg/dL High August 15, 2025 Creatinine, Serum 6.19 mg/dL 0.70 - 1.30 mg/dL High August 15, 2025 BUN/Creat Ratio 6.5 No Reference Ran ge Provided Normal August 15, 2025 Bicarbonate 21 mmol/L 20 - 29 mmol/L Normal August 15, 2025 Potassium 3.9 mmol/L 3.5 - 5.3 mmol/L Normal August 15, 2025 Chloride 99 mmol/L 98 - 110 mmol/L Normal August 15, 2025 Sodium 134 mmol/L 135 - 146 mmol/L Low August 15, 2025 Creatinine, Serum 6.41 mg/dL 0.70 - 1.30 mg/dL High August 29, 2025 Bicarbonate 24 mmol/L 20 - 29 mmol/L Normal August 29, 2025 Chloride 99 mmol/L 98 - 110 mmol/L Normal August 29, 2025 Creatinine, Serum 5.42 mg/dL 0.70 - 1.30 mg/dL High September 04, 2025 Bicarbonate 23 mmol/L 20 - 29 mmol/L Normal September 04, 2025 Chloride 105 mmol/L 98 - 110 mmol/L Normal September 04, 2025 URR, Calc 64.1 No Reference Ran ge Provided Normal September 12, 2025 Sodium 132 mmol/L 135 - 146 mmol/L Low September 12, 2025 Potassium 5.5 mmol/L 3.5 - 5.3 mmol/L High September 12, 2025 Chloride 99 mmol/L 98 - 110 mmol/L Normal September 12, 2025 Bicarbonate 17 mmol/L 20 - 29 mmol/L Low September 12, 2025 BUN 64 mg/dL 7 - 25 mg/dL High September 12, 2025 Creatinine, Serum 9.25 mg/dL 0.70 - 1.30 mg/dL High September 12, 2025 BUN, Post 23 mg/dL 7 - 25 mg/dL Normal September 12, 2025 BUN/Creat Ratio 6.9 No Reference Ran ge Provided Normal September 12, 2025 Chloride 102 mmol/L 98 - 110 mmol/L Normal September 19, 2025 Creatinine, Serum 6.06 mg/dL 0.70 - 1.30 mg/dL High September 19, 2025 Bicarbonate 23 mmol/L 20 - 29 mmol/L Normal September 19, 2025 URR, Calc 72.2 No Reference Ran ge Provided Normal September 21, 2025 BUN 36 mg/dL 7 - 25 mg/dL High September 21, 2025 BUN, Post 10 mg/dL 7 - 25 mg/dL Normal September 21, 2025 HD Adequacy Result Type Result Value Relevant Referen ce Range Interpretation Date Krt/V 0.00 No Reference Ran ge Provided - April 23, 2025 Krt/V 0.00 No Reference Ran ge Provided - May 16, 2025 Krt/V 0.00 No Reference Ran ge Provided - June 13, 2025 spKt/V ([facility]) 1.46 No Reference Range Provided - July 11, 2025 eKt/V ([facility]) 1.29 No Reference Range Provided - July 11, 2025 wstdKt/V 2.6 No Reference Ran ge Provided - August 03, 2025 eKt/V ([facility]) 1.57 No Reference Range Provided - August 03, 2025 spKt/V Got 1.82 No Reference Ran ge Provided - August 03, 2025 wstdKt/V, residual 0.0 No Reference Range Provided - August 03, 2025 spKt/V ([facility]) 1.78 No Reference Range Provided - August 03, 2025 wstdKt/V without residual 2.6 No Reference Range Provided - August 03, 2025 Krt/V 0.00 No Reference Ran ge Provided - August 03, 2025 wstdKt/V without residual 2.4 No Reference Range Provided - August 15, 2025 wstdKt/V 2.4 No Reference Ran ge Provided - August 15, 2025 spKt/V Got 1.52 No Reference Ran ge Provided - August 15, 2025 Krt/V 0.00 No Reference Ran ge Provided - August 15, 2025 eKt/V ([facility]) 1.30 No Reference Range Provided - August 15, 2025 spKt/V ([facility]) 1.50 No Reference Range Provided - August 15, 2025 wstdKt/V, residual 0.0 No Reference Range Provided - August 15, 2025 spKt/V ([facility]) 1.18 No Reference Range Provided - September 12, 2025 wstdKt/V, residual 0.0 No Reference Range Provided - September 12, 2025 wstdKt/V without residual 1.4 No Reference Range Provided - September 12, 2025 Krt/V 0.00 No Reference Ran ge Provided - September 12, 2025 eKt/V ([facility]) 1.01 No Reference Range Provided - September 12, 2025 wstdKt/V 1.4 No Reference Ran ge Provided - September 12, 2025 spKt/V Gotch 1.19 No Reference Ran ge Provided - September 12, 2025 wstdKt/V without residual 3.2 No Reference Range Provided - September 21, 2025 wstdKt/V 3.2 No Reference Ran ge Provided - September 21, 2025 eKt/V ([place]) 1.26 No Reference Range Provided - September 21, 2025 wstdKt/V, residual 0.0 No Reference Range Provided - September 21, 2025 spKt/V ([facility]) 1.44 No Reference Range Provided - September 21, 2025 Bone/Mineral Result Type Result Value Relevant Referen ce Range Interpretation Date Magnesium 2.1 mg/dL 1.6 - 2.6 mg/dL - October 122024 Magnesium 2.1 mg/dL 1.6 - 2.6 mg/dL - November 15, 2024 Magnesium 2.1 mg/dL 1.6 - 2.6 mg/dL - December 15, 2024 Magnesium 2.2 mg/dL 1.6 - 2.6 mg/dL - January 10, 2025 Magnesium 3.7 mg/dL 1.6 - 2.6 mg/dL High February 14 Magnesium 2.0 mg/dL 1.6 - 2.6 mg/dL - March 14, 2025 Magnesium 2.1 mg/dL 1.6 - 2.6 mg/dL - April 11, 2025 Magnesium 2.1 mg/dL 1.6 - 2.6 mg/dL - May PTH-Intact, Plasma 40 pg/mL 16 - 80 pg/mL - May PTH-Intact, Plasma 95 pg/mL 16 - 80 pg/mL High Sep tember 2024 Magnesium 2.1 mg/dL 1.6 - 2.6 mg/dL - June 13, 2025 Corrected Ca x P Product 39 0 - 54 - July 11, 2025 Magnesium 2.2 mg/dL 1.6 - 2.6 mg/dL - July Calcium, Total 8.8 mg/dL 8.4 - 10.2 mg/dL - 2024 Phosphorus 4.3 mg/dL 2.6 - 4.5 mg/dL - July Ca x P Product 38 0 - 54 - July Phosphorus 6.1 mg/dL 3.0 - 4.5 mg/dL High August 15, 2025 Calcium, Total 8.4 mg/dL 8.6 - 10.0 mg/dL Low Nove 2024 Magnesium 2.0 mg/dL 1.6 - 2.5 mg/dL Normal August 15, 2025 Alkaline Phosphatase 75 U/L 35 - 144 U/L Normal De 2024 PTH-Intact, Plasma 87 pg/mL 16 - 77 pg/mL High Sep Calcium, Total 8.3 mg/dL 8.6 - 10.0 mg/dL Low Dece 2024 Magnesium 2.5 mg/dL 1.6 - 2.5 mg/dL Normal September 12, 2025 Phosphorus 8.2 mg/dL 3.0 - 4.5 mg/dL High September 12, 2025 Liver/Nutrition Result Type Result Value Relevant Referen ce Range Interpretation Date Globulin (Calc) 1.9 g/dL 2.0 - 4.0 g/dL Low 2024 A/G Ratio 2.0 1.0 - 2.0 - July 11 Glucose 89 mg/dL 70 - 100 mg/dL - July Total Protein 5.7 g/dL 6.0 - 8.5 g/dL Low July 11, 2025 Albumin (BCG) 3.8 g/dL 3.5 - 5.2 g/dL - July 11, 2025 eNPCR 0.54 No Reference Ran ge Provided - August 03, 2025 Total Protein 5.8 g/dL 6.1 - 8.1 g/dL Low 2024 Albumin (BCG) 3.9 g/dL 3.6 - 5.1 g/dL Normal 2024 A/G Ratio 2.1 No Reference Ran ge Provided Normal August 15, 2025 Globulin (Calc) 1.9 No Reference Ran ge Provided Normal August 15, 2025 eNPCR 0.70 No Reference Ran ge Provided - August 15, 2025 Glucose 130 mg/dL 65 - 99 mg/dL High August Glucose 146 mg/dL 65 - 99 mg/dL High September Globulin (Calc) 1.9 No Reference Ran ge Provided Normal September 12, 2025 eNPCR 0.88 No Reference Ran ge Provided - September 12, 2025 Total Protein 5.8 g/dL 6.1 - 8.1 g/dL Low Decee r 2024 Albumin (BCG) 3.9 g/dL 3.6 - 5.1 g/dL Normal [facility] 2024 A/G Ratio 2.1 No Reference Ran ge Provided Normal September 12, 2025 Immunochemistry Result Type Result Value Relevant Reference Range Interpre tation Date HCV s/co ratio 0.06 0.00 - 0.79 - December 15, 2024 Trace Elements Result Type Result Value Relevant Reference Range Interpre tation Date Aluminum < 5 mcg/L 0 - 10 mcg/L - December 15 Aluminum 5 mcg/L 0 - 10 mcg/L - June Infectious Diseases Result Type Result Value Relevant Referen ce Range Interpretation Date Hep B Surface Ab (anti-HBs) 63 mIU/mL No Reference Range Provided - December 15, 2024 Hep B Surface Ag (HBsAg) Negative No Reference Range Provided - December 15, 2024 HCV Ab (anti-HCV) Nonreactive No Reference R sena Provided - December 15, 2024 DIALYSIS PRESCRIPTION Conventional Hemodialysis Data Element Value Order Date/Time October 08, 2025 Frequency 3X Week Treatment Days MonWedFri Dialyzer FX CorAL 80 Treatment Time (Total Minutes) 240 min Blood Flow Rate (mL/min) 500 mL/min Dialysate Flow Rate Manual 800 Estimated Dry Weight 102.4 kg Dialysate Concentrate 2.0 K, 2.5 Ca, 1.0 Mg, 100 Dextrose (G2251) Sodium (mEq/L) 137 mEq/L Bicarb Machine Setting (mEq/L) 30 mEq/L Dialysis Access Hemodialysis-AV Fist tony-Standard, Left Upper Arm, Brachial Artery to Cephalic Vein Access Placed on December 28, 2024 Arterial Needle Size 15g1 Venous Needle Size 15g1 IMMUNIZATIONS Vaccine Date Dose Route Status HEPLISAV-B, Series 4 of December 15, 2024 Intram uscular Completed HEPLISAV-B, Series 3 of October 13, 2024 20.0 mcg Intr amuscular Completed HEPLISAV-B, Series 2 of September 13, 2024 20.0 mcg Int ramuscular Completed PREVNAR September 01, 2024 0.5 mL Intramuscular Comp leted HEPLISAV-B, Series 1 of 4 August 16, 2024 20.0 mcg Int ramuscular Completed Flu Vaccine - Flucelvax Trivalent July 26, 2024 0.5 mL Intramuscular Completed TRANSPLANT WAITLIST STATUS No Information on Transplant Waitlist Status ADVANCE DIRECTIVES Directive Description Ordered By Effective Date Resuscitation status Full Code Shannon Cochran Jul DIALYSIS TREATMENTS Conventional Hemodialysis Date Pre-Treatment Vitals Post-Treatment Dafne ls Duration (hr) BFR (mL/min) Dialysate Dialyzer Dialysis Access Meds Admin Decem 2024 Weight 106.80 kg Weight 102.50 kg 04:00:00 480 3.0 K, 2.5 Ca, 1.0 Mg, 100 Dextrose (G3251) FX CorAL 80 Blood Pressure-sitting 139/70 mmHg Blood Pressure-sit ting 137/70 mmHg Blood Pressure-standing 151/72 mmHg Blood Pressure-st anding 113/63 mmHg Heart Rate 70 beats per minute Heart Rate 73 beats per minute Respiratory Rate 16 breaths per minute Respiratory Rate 16 breaths per minute Temperature 97.5 deg. F Temperature 98.1 deg. F September 30, 2025 Weight 103.00 kg Weight 102.50 kg 04:15:00 490 3.0 K, 2.5 Ca, 1.0 Mg, 100 Dextrose (G3251) FX CorAL 80 Hemodialysis-AV Fistula-Standard, Left Upper Arm, Brachial Artery to Cephalic Vein Access Placed on December 28, 2024 Heparin Sodium (Porcine) 1,000 Units/mL Catheter Lock Arterial; 2500units,Arterial Red Port Heparin Sodium (Porcine) 1,000 Units/mL Catheter Lock Venous; 2400units,Venous Blue Port Heparin Sodium (Porcine) 1,000 Units/mL Systemic; 6000units,Intravenous - push Blood Pressure-sitting 132/74 mmHg Blood Pressure-sit ting 140/71 mmHg Blood Pressure-standing 115/66 mmHg Blood Pressure-st anding 124/71 mmHg Heart Rate 64 beats per minute Heart Rate 76 beats per minute Respiratory Rate 16 breaths per minute Respiratory Rate 16 breaths per minute Temperature 96.1 deg. F Temperature 97.2 deg. F October 02, 2025 Weight 102.90 kg Weight 102.50 kg 04:01:00 480 3.0 K, 2.5 Ca, 1.0 Mg, 100 Dextrose (G3251) FX CorAL 80 Hemodialysis-AV Fistula-Standard, Left Upper Arm, Brachial Artery to Cephalic Vein Access Placed on December 28, 2024 Heparin Sodium (Porcine) 1,000 Units/mL Catheter Lock Arterial; 2500units,Arterial Red [place] Heparin Sodium (Porcine) 1,000 Units/mL Catheter Lock Venous; 2400units,Venous Blue [place] Heparin Sodium (Porcine) 1,000 Units/mL Systemic; 6000units,Intravenous - push Blood Pressure-sitting 167/77 mmHg Blood Pressure-sit ting 141/75 mmHg Blood Pressure-standing 129/68 mmHg Blood Pressure-st anding 105/57 mmHg Heart Rate 64 beats per minute Heart Rate 70 beats per minute Respiratory Rate 16 breaths per minute Respiratory Rate 16 breaths per minute Temperature 97.1 deg. F Temperature 97.3 deg. F
--- OUTSIDE RECORDS SUMMARY | 2025-10-07 18:48 | XMS_ITS | Encounter Summary ---
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 ATTENDANT NO ADDRESS ON FILE Social History Tobacco Use Types Packs/Day Years Used Date Smoking Tobacco: Former Smokeless Tobacco: Current Chew Alcohol Use Standard Drinks/Week Comments Yes 0 (1 standard drink = 0.6 oz pur e alcohol) rare Sex and Gender Information Value Date Recorded Sex Assigned at Not on file 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
--- OUTSIDE RECORDS SUMMARY | 2025-10-07 18:48 | XMS_ITS | Clinical Summary ---
Author Organization [facility] Address [address] [place] [address] Care Team Providers Care Mail Handler Name Role Phone Osmani Contreras MD Primary Care Provider [phone] Allergies Active Allergy Reactions Criticality Noted Date Comments Diphenhydramine Hcl Other (See Comments) 2015 it makes me mean Ertapenem Unknown 09/06/2018 Procaine Unknown 09/06/2018 Medications cpap remote medical coder daily at bedtime. Auto titration CPAP set [...] 18 mcg by inhalation daily. 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 1 Each 0 6 Active diltiazem (CARDIZEM [...] with meals. 15 mL 09/09/2018 7:26 PM EQUIPMENT OPERAT0R 8 Active ibuprofen (MOTRIN) 600 mg tablet [...] (09/06/2018): Added automatically from request for surgery [id number] Chronic left-sided low back pain without sciatic [...] on file Legal Sex Male 3:06 AM EQUIPMENT OPERAT0R Gender Identity Not on file Sexual Orientation [...] 07/25/2018, 2014 Medical Devices Implanted Type Area Station Chief Device Identifier Shelf Expiration Date Model / Serial / Lot Screw Hex Int Rc Bl 6.4x110 [id number] - [id number] Implanted:Qty: 1 on 03/30/2019 by Colt Garza MD at [facility] Screw Right: Femur [employer] 07/30/2025 [id number] / / [id number] Screw Hex Int Rc Bl 6.4x115 [id number] - [id number] Implanted:Qty: 1 on 03/30/2019 by Colt Garza MD at [facility] Screw Right: Femur [employer] 01/08/2022 [id number] / / [id number] Screw Trgn Lp 5.0x50mm [id number] - [id number] Implanted:Qty: 1 on 03/30/2019 by Colt Garza MD at [facility] Screw Right: Femur [employer] 02/11/2029 [id number] / / [id number] Screw Trgn Lp 5.0x60mm [id number] - [id number] Implanted:Qty: 1 on 03/30/2019 by Colt Garza MD at [facility] Screw Right: Femur [employer] 10/11/2026 [id number] / / [id number] Nail Implanted:Qty: 1 on 03/30/2019 by Colt Garza MD at [facility] Right: Femur [employer] 08/10/2020 [id number] / / [id number] Explanted Type Area Station Chief Device Identifier Shelf Expiration Date Model / Serial / Lot Nail Fan Jud Rt [id number] - [id number] Implanted:Qty: 1 on 09/07/2018 by Colt Gazra MD at [facility] Explanted:Qty: 1 on 03/30/2019 by Colt Garza MD at [facility] Nail Right: Femur [employer] 10/04/2025 [id number] / / [id number] Description:INV Screw Hex Int Rc Bl 6.4x110 [id number] - [id number] Implanted:Qty: 1 on 09/07/2018 by Colt Garza MD at [facility] Explanted:Qty: 1 on 03/30/2019 by Colt Garza MD at [facility] Screw Right: Femur [employer] 05/19/2027 [id number] / / [id number] Description:INV Screw Hex Int Rc Bl 6.4x115 [id number] - [id number] Implanted:Qty: 1 on 09/07/2018 by Colt Garza MD at [facility] Explanted:Qty: 1 on 03/30/2019 by Colt Garza MD at [facility] Screw Right: Femur [employer] 12/08/2019 [id number] / / [id number] Description:INV Screw Trgn Lp 5.0x52.5mm [id number] - [id number] Implanted:Qty: 1 on 09/07/2018 by Colt Garza MD at [facility] Explanted:Qty: 1 on 03/30/2019 by Colt Garza MD at [facility] Screw Right: Femur [employer] 03/13/2028 [id number] / / [id number] Description:INV Screw Trgn Lp 5.0x47.5mm [id number] - [id number] Implanted:Qty: 1 on 09/07/2018 by Colt Garza MD at [facility] Explanted:Qty: 1 on 03/30/2019 by Colt Garza MD at [facility] Screw Right: Femur [employer] 02/03/2028 [id number] / / [id number] Description:INV Procedures Procedure Name Priority Date/Time Associated Diagnosis Comments HEMOGLOBIN A1C Stat 03/31/2019 10:06 AM CDT LIPID PANEL Stat 01/04/2012 9:00 PM CDT SICK [ICD-9-CM] from Last 3 Months or Most Recently Relevant to Health Maintenance Results * (ABNORMAL) HEMOGLOBIN A1C (03/31/2019 10:06 AM CDT) HEMOGLOBIN A1C 11.4(H) See comment % 03/31/2019 12:05 PM CDT [facility] EST. AVG GLUCOSE, A1C 280 mg/dL 03/31/2019 12:05 PM CDT [facility] Blood BLOOD SPECIMEN / Unknown Venipuncture / Unknown 03/31/2019 10:06 AM CDT 03/31/2019 10:33 AM CDT [facility] - 03/31/2019 12:05 PM CDT HGB A1C INTERPRETATION NORMAL: <5.7% PRE-DIABETES: 5.7 - 6.4% DIABETES: 6.5% OR GREATER Priya Tomas MD CHEMISTRY ORDERAB LES Final Result [facility] CLIA# [id number] [facility] [place] [address] * (ABNORMAL) LIPID PANEL (01/04/2012 9:00 PM CDT) CHOLESTEROL 231(H) 130 - 200 mg/dL 01/04/2012 11:32 PM CDT [facility] TRIGLYCERIDE 108 30 - 200 mg/dL 01/04/2012 11:32 PM T [facility] HDL 51 35 - 80 mg/dL 01/04/2012 11:32 PM CDT [facility] LDL CALCULATED 158(H) 0 - 100 mg/dL 01/04/2012 11:32 PM CDT [facility] Blood specimen (specimen) 01/04/2012 9:00 PM CDT 01/04/2012 11:[address] [facility] - 01/04/2012 11:32 PM CDT TOTAL CHOLESTEROL mg/dL Desirable <200 Borderline high 200-239 High >=240 TRIGLYCERIDES mg/dL Normal <150 Borderline high 150-199 High 200-499 Very high >=500 HDL CHOLESTEROL mg/dL Low <40 Normal 40-60 Desirable >60 LDL CHOLESTEROL mg/dL Optimal <100 Low risk 100-129 Borderline high 130-159 High 160-189 Very high >=190 Based on AHA/NCEP Guidelines Chelsey Garcia Lyman FURNITURE INSTALLER CHEMISTRY ORDERABLES Final Result [facility] CLIA # [id number] [address] [facility] [address] [place] [address] from Last 3 Months or Most Recently Relevant to Health Maintenance Insurance [employer] Medicare Part D [employer] PLUS [id number] O Advance Directives For more information, please contact: [phone] * Full Code (Latest Code Status on [...] 12:46 AM 04/05/2016 7:09 PM Care Teams Mail Handler Relationship Specialty Start Date End Date Osmani Contreras MD [address] [place] [address] PCP - General Family Practice 12/04/15
--- OUTSIDE RECORDS SUMMARY | 2025-10-07 18:48 | XMS_ITS | Encounter Summary ---
Author Organization [facility] Address [address] [place] [address] Care Team Providers Care Entertainment Director Name Role Phone Osmani Contreras MD Primary Care Provider [phone] Encounter Details Date Type Department Care Team (Late st Contact Info) Description 01/11/2012 Ancillary Orders [facility] [place] [address] [place] [address] DM (diabetes mellitus) ([facility]) Social History Tobacco Use Types Packs/Day Years Used Date Smoking Tobacco: Never Assessed Sex and Gender Information Value Date Recorded Sex Assigned at Not on file 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 AVG GLUCOSE, A1C 355 mg/dL 01/12/2012 1:01 AM CDT [facility] Blood specimen (specimen) 01/11/2012 10:05 PM CDT 01/11/2012 11:13 PM CDT us Osmani Contreras MD CHEMISTRY ORDERABLES Final Resu lt [facility] CLIA # [id number] [address] [facility] [address] [place] [address] documented in this encounter Visit Diagnoses Diagnosis DM (diabetes mellitus) ([facility]) Type II or unspecified type diabetes mellitus without mention of complication, not stated as uncontrolled documented in this encounter Additional Health Concerns Infection Onset Date Last Indicated Resolved Time C Diff Comment:Resolved 09/08/2018, Infection Prevention 03/11/16 ([facility]) 03/25/2016 03/25/2016 8 7:46 AM CONE WORKER documented as of this encounter Care Teams Entertainment Director Relationship Specialty Start Date End Date Osmani Contreras MD [address] [place] [address] PCP - General Family Practice 12/04/15 documented as of this encounter
--- OUTSIDE RECORDS SUMMARY | 2025-10-07 18:48 | XMS_ITS | Encounter Summary ---
Author Organization [facility] Address [address] [facility] [place] [address] Care Team Providers Care District Manager In Training Name Role Phone Osmani Contreras MD Primary Care Provider [phone] Encounter Details Date Type Department Care Team (Latest Contact Info) Description 07/24/2004 Outpatient Historical [facility] [address] [place] [phone] Sarwat Naidu MD [address] [place] [address] HYPERTENSION NOS (Primary Dx) Social History Tobacco Use Types Packs/Day Years Used Date Smoking Tobacco: Never Assessed Sex and Gender Information Value Date Recorded Sex Assigned at Not on file 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 Gender Identity Not on file Sexual Orientation Not on file documented as of this encounter Plan of Treatment Not on file documented as of this encounter Visit Diagnoses Diagnosis Unspecified essential hypertension- Primary documented in this encounter Additional Health Concerns Infection Onset Date Last Indicated Resolved Time C Diff Comment:Resolved 09/08/2018, Infection Prevention 03/11/16 ([facility]) 03/25/2016 03/25/2016 8 7:46 AM WINDMILL TECHNICIAN documented as of this encounter Care Teams District Manager In Training Relationship Specialty Start Date End Date Osmani Contreras MD [address] [place] [address] PCP - General Family Practice 12/04/15 documented as of this encounter
--- OUTSIDE RECORDS SUMMARY | 2025-10-07 18:48 | XMS_ITS | Encounter Summary ---
Author Organization [facility] Address [address] [place] [address] Care Team Providers Care Home Health Lpn Name Role Phone Osmani Contreras MD Primary Care Provider [phone] Encounter Details Date Type Department Care Team (Latest Contact Info) Description 08/20/1999 Outpatient Historical [facility] Bharathi Walker MD [address] [facility] [address] [place] [address] Hernia of unspecified site of abdominal cavity without mention of obstruction or gangrene (Primary Dx) Social History Tobacco Use Types Packs/Day Years Used Date Smoking Tobacco: Never Assessed Sex and Gender Information Value Date Recorded Sex Assigned at Not on file 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
--- OUTSIDE RECORDS SUMMARY | 2025-10-07 18:48 | XMS_ITS | Encounter Summary ---
Author Organization [facility] Address [address] [place] [address] Care Team Providers Care Vine Fruit Farming Supervisor Name Role Phone Osmani Contreras MD Primary Care Provider [phone] Encounter Details Date Type Department Care Team (Latest Contact Info) Description 09/16/2004 Outpatient [facility] [place] [address] 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 Gender Identity Not on file Sexual Orientation Not on file documented as of this encounter Plan of Treatment Not on file documented as of this encounter Visit Diagnoses Diagnosis Abdominal pain, epigastric- Primary Heartburn Reflux esophagitis documented in this encounter Additional Health Concerns Infection Onset Date Last Indicated Resolved Time C Diff Comment:Resolved 09/08/2018, Infection Prevention 03/11/16 ([facility]) 03/25/2016 03/25/2016 8 7:46 AM MOTORBOAT MECHANIC HELPER documented as of this encounter Care Teams Vine Fruit Farming Supervisor Relationship Specialty Start Date End Date Osmani Contreras MD [address] [place] [address] PCP - General Family Practice 12/04/15 documented as of this encounter
--- OUTSIDE RECORDS SUMMARY | 2025-10-07 18:48 | XMS_ITS | Encounter Summary ---
Author Organization [facility] Address [address] [place] [address] Care Team Providers Care Historic Preservationist Name Role Phone Osmani Contreras MD Primary Care Provider [phone] Encounter Details Date Type Department Care Team (Latest Contact Info) Description 09/08/2004 Outpatient Historical [facility] [address] [place] [phone] Sarwat Naidu MD [address] [place] [phone] ABDOMINAL PAIN UNSPEC SITE (Primary Dx); HYPERTENSION NOS Social History Tobacco Use Types Packs/Day Years Used Date Smoking Tobacco: Never Assessed Sex and Gender Information Value Date Recorded Sex Assigned at Not on file 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 Gender Identity Not on file Sexual Orientation Not on file documented as of this encounter Plan of Treatment Not on file documented as of this encounter Visit Diagnoses Diagnosis Abdominal pain, unspecified site- Primary Unspecified essential hypertension documented in this encounter Additional Health Concerns Infection Onset Date Last Indicated Resolved Time C Diff Comment:Resolved 09/08/2018, Infection Prevention 03/11/16 ([facility]) 03/25/2016 03/25/2016 8 7:46 AM MALT LIQUORS SALES REPRESENTATIVE documented as of this encounter Care Teams Historic Preservationist Relationship Specialty Start Date End Date Osmani Contreras MD [address] [place] [address] PCP - General Family Practice 12/04/15 documented as of this encounter
--- OUTSIDE RECORDS SUMMARY | 2025-10-07 18:48 | XMS_ITS | Encounter Summary ---
Author Organization [facility], [facility] Address [address] [place] [address] Phone Care Team Providers Care Social Security Assessor Name Role Phone Unavailable Primary Care Provider Unavailabl e Reason for Visit * Reason Comments Med Refill Encounter Details Date Type Department Care Team (Late st Contact Info) Description 07/17/2024 Refill [facility], [facility] [address] [place] [address] Shannon Cochran MD [address] [place] [address] Social History Tobacco Use Types [...] Urea Reduction 69 65 - 80 % [employer] 08/16/2024 08/18/2024 9:1 6 AM FIGURE REFINISHER AND REPAIRER Narrative Resulting Agency Comment Specimen source: Plasma Shannon Cochran MD LAB BLOOD ORDERABLES Final Re sult [employer] See order comments or contact performing lab Unknown, [place] * POST CHEMISTRY (08/16/2024) BUN Post Dialysis 10 6 - 19 mg/dL [facility] 08/16/2024 08/18/2024 9:1 6 AM FIGURE REFINISHER AND REPAIRER Narrative [facility] - 08/18/2024 Unless otherwise specified, test(s) performed at: [facility], [address] [place] [address] CHAIRMAN AND CEO: Dar Kang M.D. For any questions, please call customer service at FREQUENCY:MONTHLY Resulting Agency Comment Specimen source: Plasma us Shannon Cochran MD LAB BLOOD ORDERABLES Final Re sult [facility] See order comments or contact performing lab Unknown, [place] * IMMUNO CHEMISTRY (08/16/2024) Pathologist [facility] Hep B Surface Ag Negative Negative [facility] 08/16/2024 08/17/2024 1:3 9 PM FIGURE REFINISHER AND REPAIRER Narrative Resulting Agency Comment Specimen source: Serum us Shannon Cochran MD LAB BLOOD ORDERABLES Final Re sult Performing Organization Address [facility] Co de Phone Number [facility] See order comments or contact performing lab Unknown, [place] * (ABNORMAL) [facility] Chemistry (08/16/2024) Pathologist [facility] BUN 32(H) 6 - 19 mg/dL [facility] [...] [facility] 08/16/2024 08/17/2024 1:3 9 PM FIGURE REFINISHER AND REPAIRER Narrative [facility] - 08/17/2024 Unless otherwise specified, test(s) performed at: [facility], [address] [place] [address] CHAIRMAN AND CEO: Dar Kang M.D. For any questions, please call customer service at FREQUENCY:MONTHLY Resulting Agency Comment Specimen source: Serum us Shannon Cochran MD LAB BLOOD ORDERABLES Final Re sult [employer] See order comments or contact performing lab [...] [facility] 08/16/2024 08/17/2024 1:4 4 PM FIGURE REFINISHER AND REPAIRER Narrative [facility] - 08/17/2024 Unless otherwise specified, test(s) performed at: [facility], [address] [place] [address] CHAIRMAN AND CEO: Dar Kang M.D. For any questions, please call customer service at FREQUENCY:MONTHLY Resulting Agency Comment Specimen source: Blood us Shannon Cochran MD LAB BLOOD ORDERABLES Final Re sult Performing Organization Address [facility] Co de Phone Number [facility] See order comments or contact performing lab Unknown, [place] * (ABNORMAL) [facility] Chemistry (08/08/2024) BUN 19 6 - 19 mg/dL [facility] Creatinine 3.31(H) 0.60 - 1.30 mg/dL [facility] BUN/Creatinine Ratio 5.7(L) 10.0 - 20.0 [facility] 08/08/2024 08/09/2024 9:5 2 AM CDT Narrative [facility]PS [facility] - 08/09/2024 Unless otherwise specified, test(s) performed at: [facility], [address] [place] [address] CHAIRMAN AND CEO: Dar Kang M.D. For any questions, please call customer service at FREQUENCY:OTHER Resulting Agency Comment Specimen source: Serum us Shannon Cochran MD LAB BLOOD ORDERABLES Final Re sult Performing Organization Address [facility] Co de Phone Number [facility]PS [facility] See order comments or contact performing lab Unknown, [place] * (ABNORMAL) HEMATOLOGY (08/08/2024) Hemoglobin 9.4(L) 14.0 - 18.0 g/dL [facility] Hemoglobin x 3 28.2(L) 42.0 - 54.0 % [facility] 08/08/2024 08/09/2024 9:4 7 AM CDT Narrative [facility]PS [facility] - 08/09/2024 Unless otherwise specified, test(s) performed at: [facility] [address] CHAIRMAN AND CEO: Dra Kang M.D. For any questions, please call customer service at FREQUENCY:OTHER Resulting Agency Comment Specimen source: Blood us Shannon Cochran MD LAB BLOOD ORDERABLES Final Re sult Performing Organization Address [facility] de Phone Number [facility] See order comments or contact performing lab Unknown, [place] * (ABNORMAL) HEMATOLOGY (08/02/2024) [facility] Hemoglobin 9.2(L) 14.0 - 18.0 g/dL [facility] Hemoglobin x 3 27.6(L) 42.0 - 54.0 % [facility] 08/02/2024 08/03/2024 11: 25 AM CDT Narrative [facility] - 08/03/2024 Unless otherwise specified, test(s) performed at: [facility] [id number] CHAIRMAN AND CEO: Dar Kang M.D. For any questions, please call customer service at FREQUENCY:OTHER Resulting Agency Comment Specimen source: Blood Shannon Cochran MD LAB BLOOD ORDERABLES Final Re sult Performing Organization Address [facility] de Phone Number [facility] See order comments or contact performing lab Unknown, [place] * IMMUNO CHEMISTRY (08/02/2024) [facility] Hepatitis C Antibody Nonreactive Nonreactive [facility] Comment: No HCV antibody detected. The [...] ORDERABLES Final Re sult Performing Organization Address [facility]/ZIP Co de Phone Number [facility] See order comments or [...] 08/03/2024 Unless otherwise specified, test(s) performed at: [facility], [address] [place] [address] CHAIRMAN AND CEO: Dar Kang M.D. For any questions, please call customer service at FREQUENCY:OTHER Resulting Agency Comment Specimen source: Serum us Shannon Cochran MD LAB BLOOD ORDERABLES Final Re sult Performing Organization Address [facility] Co de Phone Number [facility] See order [...] 07/31/2024 08/01/2024 10: 11 AM CDT Narrative [facility] - 08/01/2024 Unless otherwise specified, test(s) performed at: [facility], [address] [place], [place] [id number] CHAIRMAN AND CEO: Dar Kang M.D. For any questions, please call customer service at FREQUENCY:OTHER Resulting Agency Comment Specimen source: Urine Shannon Cochran MD LAB URINE ORDERABLES Final Re sult Performing Organization Address [facility] Co de Phone Number [facility] [employer] [facility] See order comments or contact performing lab Unknown, [place] * (ABNORMAL) [facility] Chemistry (07/31/2024) BUN 24(H) 6 - [...] 07/31/2024 08/01/2024 9:2 0 AM CDT Narrative [facility] - 08/01/2024 Unless otherwise specified, test(s) performed at: [facility], [address] [place] [address] CHAIRMAN AND CEO: Dar Kang M.D. For any questions, please call customer service at FREQUENCY:OTHER Resulting Agency Comment Specimen source: Serum us Shannon Cochran MD LAB BLOOD ORDERABLES Final Re sult Performing Organization Address City/[facility]/ZIP Co de Phone Number [facility] [employer] [facility] See order comments or contact performing lab Unknown, [place] * (ABNORMAL) [facility] (07/31/2024) [facility] PTH 391(H) 16 - 80 pg/mL [facility] 07/31/2024 08/01/2024 10: 24 AM CDT Narrative [facility] - 08/01/2024 Unless otherwise specified, test(s) performed at: [facility], [address] [place] [address] CHAIRMAN AND CEO: Dar Kang M.D. For any questions, please call customer service at FREQUENCY:OTHER Resulting Agency Comment Specimen source: Plasma us Shannon Cochran MD LAB BLOOD ORDERABLES Final Re sult Performing Organization Address [facility] Co de Phone Number [facility] See order comments or contact performing lab Unknown, [place] * PATIENT INFORMATION (07/31/2024) [facility] Patient BSA 2.65 sq. M. [facility] Comment: Normalized values are calculated using the patient's actual BSA and normalized to the average BSA of 1.73m2. 07/31/2024 08/01/2024 9:2 0 AM CDT Narrative [facility] - 08/01/2024 Unless otherwise specified, test(s) performed at: [facility] [address] CHAIRMAN AND CEO: Dar Kang M.D. For any questions, please call customer service at FREQUENCY:OTHER Resulting Agency Comment Specimen source: PD Fluid us Shannon Cochran MD LAB BLOOD ORDERABLES Final Re sult Performing Organization Address City/[facility]/ZIP Co de Phone Number [facility] See order comments or contact performing lab Unknown, [place] * PATIENT INFORMATION (07/31/2024) [facility] Patient Weight 127.3 [facility] Patient Height 203.0 [facility] Amputee Status NO [facility] Amputee Parts NONE [facility] Urine Volume 1,700 [facility] Collection Interval, Ur 24.0 [facility] 07/31/2024 07/31/2024 Narrative [facility] - 08/01/2024 Unless otherwise specified, test(s) performed at: [facility], [address] [place] [address] CHAIRMAN AND CEO: Dar Kang M.D. For any questions, please call customer service at FREQUENCY:OTHER Resulting Agency Comment Specimen source: PD Fluid Shannon Cochran MD LAB BLOOD ORDERABLES Final Re sult [facility] See order comments or contact performing lab Unknown, [place] * (ABNORMAL) HEMATOLOGY (07/26/2024) Pathologist [facility] Hemoglobin 9.6(L) 14.0 - 18.0 g/dL [facility] Hemoglobin x 3 28.8(L) 42.0 - 54.0 % [facility] Reticulocyte Hemoglobin 32.8(H) 25.4 - 31.8 pg [facility] 07/26/2024 07/27/2024 1:0 8 PM CDT Narrative [facility] - 07/27/2024 Unless otherwise specified, test(s) performed at: [facility], [address] [place] [id number] CHAIRMAN AND CEO: Dar Kang M.D. For any questions, please [...] 07/26/2024 07/27/2024 8:5 6 AM CDT Narrative [facility] - 07/27/2024 Unless otherwise specified, test(s) performed at: [facility], [address] [place] [address] CHAIRMAN AND CEO: Dar Kang M.D. For any questions, please call customer service at FREQUENCY:OTHER Resulting Agency Comment Specimen source: Serum us Shannon Cochran MD LAB BLOOD ORDERABLES Final Re sult [facility] See order comments or contact performing lab Unknown, [place] * (ABNORMAL) [facility] Chemistry (07/19/2024) BUN 29(H) 6 - [...] 07/19/2024 07/20/2024 10: 58 AM CDT Narrative [facility] - 07/20/2024 Unless otherwise specified, test(s) performed at: [facility] [address] CHAIRMAN AND CEO: Dar Kang M.D. For any questions, please call customer service at FREQUENCY:MONTHLY Resulting Agency Comment Specimen source: Serum Shannon Cochran MD LAB BLOOD ORDERABLES Final Re sult Performing Organization Address [facility] de Phone Number [facility] See order comments or contact performing lab Unknown, [place] * TRACE ELEMENTS (07/19/2024) Pathologist [facility] Aluminum <5 0 - 10 mcg/L [facility] Comment: This test was developed and its performance characteristics determined by [facility]. It has not been cleared or approved by the FDA. The laboratory is regulated under CLIA as qualified to perform high complexity testing. This test is used for clinical purposes. It should not be regarded as investigational or for research. 07/19/2024 07/20/2024 10: 49 AM CDT Narrative [facility] - 07/20/2024 Unless otherwise specified, test(s) performed at: [facility], [address] [place] [address] CHAIRMAN AND CEO: Dar Kang M.D. For any questions, please call customer service at FREQUENCY:MONTHLY Resulting Agency Comment Specimen source: Serum Shannon Cochran MD LAB BLOOD ORDERABLES Final [facility] Performing Organization Address [facility] de Phone Number [facility] See order comments or contact performing lab Unknown, [place] * (ABNORMAL) HEMATOLOGY (07/19/2024) Pathologist [facility] Neutrophils 78.3(H) 40.0 - 75.0 % [facility] [...] 07/19/2024 07/20/2024 11: 32 AM CDT Narrative [facility] - 07/20/2024 Unless otherwise specified, test(s) performed at: [facility], [address] [place] [address] CHAIRMAN AND CEO: Dar Kang M.D. For any questions, please call customer service at FREQUENCY:MONTHLY Resulting Agency Comment Specimen source: Blood us Shannon Cochran MD LAB BLOOD ORDERABLES Final Re sult [facility] See order comments or contact performing lab [facility], [place] * IMMUNO CHEMISTRY (07/17/2024) Hepatitis B Surface Ab <10 mIU/mL [facility] Comment: Reference Range: <10 mIU/mL Non-Immune >=10 mIU/mL Immune The magnitude of the measured result above 10 mIU/mL is not indicative of the total amount of antibody present. Custom Exception Hep B Core Total Ab Negative Negative [facility] Comment: Hep B Core Ab, Total appears during the acute infection stage and remains reactive/positive throughout the recovery stage. The above test result was obtained using Siemens Centaur XP chemiluminescent method. Results obtained with different assay methods or kits cannot be used interchangeably. Hep B Surface Ag Negative Negative [facility] 07/17/2024 07/18/2024 11: 19 AM CDT Narrative [facility] [employer] [facility] - 07/18/2024 Unless otherwise specified, test(s) performed at: [facility], [address] [place] [address] CHAIRMAN AND CEO: Dar Kang M.D. For any questions, please call customer service at FREQUENCY:OTHER Resulting Agency Comment Specimen source: Serum us Shannon Cochran MD LAB BLOOD ORDERABLES Edited R esult - Final APS [facility] See order comments or contact performing lab Unknown, [place] documented in this encounter Visit Diagnoses Not on filedocumented in this encounter
--- OUTSIDE RECORDS SUMMARY | 2025-10-07 18:48 | XMS_ITS | Encounter Summary ---
Author Organization [facility], [facility] Address [address] [place] [address] Phone Care Team Providers Care Binding Nicker Name Role Phone Unavailable Primary Care Provider Unavailabl e Encounter Details Date Type Department Care Team (Late st Contact Info) Description 10/02/2025 Orders Only [facility], [facility] [address] [place] [address] Shannon Cochran MD [address] [place] [address] Social History Tobacco Use Types [...] (10/02/2025) Hemoglobin 11.4(L) 13.2 - 14.0 g/dL [facility] 10/02/2025 10/01/2025 9:0 1 AM CONSUMER ATTORNEY Narrative Resulting Agency Comment Performing Organization Information: Site ID: NE Name: [facility] Address: [address] [id number] Director: Sathya Coronado MD us Shannon Cochran MD LAB BLOOD ORDERABLES Final Re sult [facility] [id number] [id number] documented in this encounter Visit Diagnoses Not on filedocumented in this encounter
--- OUTSIDE RECORDS SUMMARY | 2025-10-07 18:48 | XMS_ITS | Clinical Summary ---
Author Organization [facility] Facility Address [address] [place] [address] Care Team Providers Care Program Mgr Name Role Phone Unavailable Primary Care Provider Unavailhans e Encounters Date Type Department Care Team Description 10/02/2025 Orders Only [facility] [address] [place] [address] Shannon Cochran MD 10/02/2025 Treatment [facility], [facility] [address] [place] [address] Shannon Cochran MD Hypertensive chronic kidney disease with stage 5 chronic kidney disease or end stage renal disease; End stage renal disease; Dependence on renal dialysis 09/[facility] [address] [place] [address] Beatrice Young NP 09/26/2025 Orders Only [facility] [address] [place] [address] Shannon Cochran MD 09/26/2025 Refill [facility] [address] [place] [address] Beatrice Young NP 09/21/2025 Orders Only [facility] [address] [place] [address] Shannon Cochran MD 09/21/[facility] [address] [place] [address] Beatrice Young NP 09/19/2025 Orders Only [facility] [address] [place] [address] Shannon Cochran MD 09/17/[address] [place] [address], [facility] [address] [place] [address] Merlyn Smith NP End stage renal disease; Dependence on renal dialysis 09/12/2025 Orders Only [facility], [facility] [address] [place] [address] Shannon Cochran MD 09/12/[address] [place] [address], [facility] [address] [place] [address] Beatrice Young NP End stage renal disease; Dependence on renal dialysis; Hypertensive chronic kidney disease with stage 1 through stage 4 chronic kidney disease, or unspecified chronic kidney disease 09/04/2025 Orders Only [facility], [facility] [address] [place] [address] Shannon Cochran MD 09/04/[address] [place] [address], [facility] [address] [place] [address] Beatrice Young NP End stage renal disease; Dependence on renal dialysis; Hypertensive chronic kidney disease with stage 1 through stage 4 chronic kidney disease, or unspecified chronic kidney disease 08/29/2025 [facility], [facility] [address] [place] [address] Shannon Cochran MD 08/27/[address] [place] [address], [facility] [address] [place] [address] Shannon Cochran MD End stage renal disease; Dependence on renal dialysis 08/22/2025 [facility], [facility] [address] [place] [address] Shannon Cochran MD 08/20/[address] [place] [address], [facility] [address] [place] [address] Beatrice Young NP End stage renal disease; Dependence on renal dialysis; Hypertensive chronic kidney disease with stage 1 through stage 4 chronic kidney disease, or unspecified chronic kidney disease 08/15/2025 [facility], [facility] [address] [place] [address] Shannon Cochran MD 08/13/[address] [place] [address], [facility] [address] [place] [address] Beatrice Young NP End stage renal disease; Dependence on renal dialysis; Hypertensive chronic kidney disease with stage 1 through stage 4 chronic kidney disease, or unspecified chronic kidney disease 08/08/2025 [facility], [facility] [address] [place] [address] Shannon Cochran MD 08/06/2025 [facility] [address] [place] [address] Shannon Cochran MD End stage renal disease; Dependence on renal dialysis 08/03/2025 [facility], [facility] [address] [place] [address] Shannon Cochran MD 08/01/2025 Orders [facility], [facility] [address] [place] [address] Shannon Cochran MD 07/30/[address] [place], [place] [address]rology [facility], [facility] [address] [place] [address] Beatrice Young NP End stage renal disease; Dependence on renal dialysis; Hypertensive chronic kidney disease with stage 1 through stage 4 chronic kidney disease, or unspecified chronic kidney disease 07/19/2025 [facility], [facility] [address] [place] [address] Beatrice Young NP 07/18/2025 Orders Only [facility] [address] [place] [address] Shannon Cochran MD 07/18/2025 Treatment [facility], [facility] [address] [place] [address] Merlyn Smith NP End stage renal disease; Dependence on renal dialysis 07/11/2025 Treatment [facility], [facility] [address] [place] [address] Beatrice Young NP End stage renal disease; Dependence on renal dialysis 07/11/2025 Orders Only [facility] [address] [place] [address] Shannon Cochran MD from Last 3 Months [...] Comments Blood Pressure 112/70 12/17/2016 11:00 AM MEDICAL AUDITOR Pulse 64 12/17/2016 11:00 AM MEDICAL AUDITOR Temperature - - Respiratory Rate - - Oxygen Saturation - - Inhaled Oxygen Concentration - - Weight 126 kg (277 lb 6.4 oz) 12/17/2016 11:00 A M MEDICAL AUDITOR Height 203.2 cm (6' 8 ) 12/17/2016 11:00 AM MEDICAL AUDITOR Body Mass Index 30.47 12/17/2016 11:00 AM MEDICAL AUDITOR Plan of Treatment Health Maintenance Due Date [...] 07/11/2025 HEMOGLOBIN A1C Routine 12/15/2016 12:00 AM MEDICAL AUDITOR from Last 3 Months or Most Recently Relevant to Health Maintenance Results * (ABNORMAL) Hemoglobin (10/02/2025) Only the most recent of6 resultswithin the time period is included. Hemoglobin 11.4(L) 13.2 - 14.0 g/dL [facility] 10/02/2025 10/01/2025 9:0 1 AM MEDICAL AUDITOR Narrative Resulting Agency Comment Performing Organization Information: Site ID: [place] Name: [facility] [place] Address: [address] [place] [address] Director: Sathya Coronado MD us Shannon Cochran MD LAB BLOOD ORDERABLES Final Re sult [facility] [address] [place] [address] * [facility] Results (09/21/2025) Only the most recent of5 resultswithin the time period is included. WSTDKT/V 3.2 Knowledge Center spKt/V (Daugirdas II) 1.44 Knowledge Center eKt/V (Tattersall) 1.26 [facility] 09/21/2025 09/21/2025 Booker Ordering Provider LAB BLOOD ORDERABLES Final Result [facility] Contact Performing lab Unknown, [place] * Post Dialysis BUN (09/21/2025) Only the most recent of3 resultswithin the time period is included. BUN Post Dialysis 10 7 - 25 mg/dL [facility] 09/21/2025 09/19/2025 4:1 1 PM MEDICAL AUDITOR Narrative Resulting Agency Comment Performing Organization Information: Site ID: JOON Name: [facility] Address: [address] [place] [phone] Director: Sathya Coronado MD Shannon Cochran MD LAB BLOOD ORDERABLES Final Re sult [facility] [id number] [place] [phone] * (ABNORMAL) BUN (09/21/2025) Only the most recent of3 resultswithin the time period is included. BUN 36(H) 7 - 25 mg/dL [facility] 09/21/2025 09/19/2025 4:1 1 PM MEDICAL AUDITOR Narrative Resulting Agency Comment Performing Organization Information: Site ID: JOON Name: [facility] Address: [address] [place] [phone] Director: Sathya Coronado MD Shannon Cochran MD LAB BLOOD ORDERABLES Final Re sult Performing Organization Address [facility] Co de Phone Number [facility] [id number] [place] [phone] * (ABNORMAL) Creatinine, serum (09/19/2025) Only the most recent of6 resultswithin the time period is included. Creatinine 6.06(H) 0.70 - 1.30 mg/dL [facility] 09/19/2025 09/18/2025 7:4 9 AM MEDICAL AUDITOR Narrative Resulting Agency Comment Performing Organization Information: Site ID: JOON Name: [facility] Address: [address] [place] [phone] Director: Sathya Coronado MD Shannon Cochran MD LAB BLOOD ORDERABLES Final Re sult Performing Organization Address [facility] Co de Phone Number [facility] [address] * Chloride (09/19/2025) Only the most recent of6 resultswithin the time period is included. Chloride 102 98 - 110 mmol/L [facility] 09/19/2025 09/18/2025 7:4 9 AM MEDICAL AUDITOR Narrative Resulting Agency Comment Performing Organization Information: Site ID: JOON Name: [facility] Address: [address] [place] [phone] Director: Sathya Coronado MD us Shannon Cochran MD LAB BLOOD ORDERABLES Final Re sult Performing Organization Address [facility] Co de Phone Number [facility] [id number] [place] [phone] * CO2 (09/19/2025) Only the most recent of6 resultswithin the time period is included. Bicarbonate (CO2) 23 20 - 29 mmol/L [facility] 09/19/2025 09/18/2025 7:4 9 AM MEDICAL AUDITOR Narrative Resulting Agency Comment Performing Organization Information: Site ID: JOON Name: [facility] Address: [address] [place] [phone] Director: Sathya Coronado MD Shannon Cochran MD LAB BLOOD ORDERABLES Final Re sult Performing Organization Address City/[facility] Co de Phone Number [facility] [address] * (ABNORMAL) Iron and TIBC (09/12/2025) Only the most recent of2 resultswithin the time period is included. Pathologist [facility] Iron, Total 68 50 - 180 mcg/dL [facility] TIBC 210(L) 250 - 425 mcg/dL (calc) [facility] Iron Saturation (TSat) 32 20 - 48 % (calc) [facility] 09/12/2025 09/11/2025 5:1 0 AM MEDICAL AUDITOR Narrative Resulting Agency Comment Performing Organization Information: Site ID: JOON Name: [facility] Address: [address] [place] [phone] Director: Sathya Coronado MD Shannon Cochran MD LAB BLOOD ORDERABLES Final [facility] Performing Organization Address City/[facility]/ZIP Co de Phone Number [facility] [address] * (ABNORMAL) Differential with WBC (09/12/2025) Only the most recent of2 resultswithin the time period is included. Pathologist [facility] WBC 7.8 3.8 - 10.8 Thousand/u L [...] [facility] 09/12/2025 09/11/2025 5:1 0 AM MEDICAL AUDITOR Narrative Resulting Agency Comment Performing Organization Information: Site ID: [place] Name: [facility] Address: [address] [place] [phone] Director: Sathya Coronado MD Shannon Cochran MD LAB BLOOD ORDERABLES Final Re sult Performing Organization Address [facility] de Phone Number [facility] [address] * (ABNORMAL) Platelet count (09/12/2025) Only the most recent of2 resultswithin the time period is included. Platelets 123(L) 140 - 400 Thousand/uL [facility] 09/12/2025 09/11/2025 5:1 0 AM MEDICAL AUDITOR Narrative Resulting Agency Comment Performing Organization Information: Site ID: JOON Name: [facility] Address: [address] [place] [phone] Director: Sathya Coronado MD us Shannon Cochran MD LAB BLOOD ORDERABLES Final Re sult Performing Organization Address [facility] Co de Phone Number [facility] [address] * (ABNORMAL) CBC (09/12/2025) Only the most [...] [facility] 09/12/2025 09/11/2025 5:1 0 AM MEDICAL AUDITOR Narrative Resulting Agency Comment Performing Organization Information: Site ID: [place] Name: [facility] [place] Address: [address] [place] [phone] Director: Sathya Coronado MD Shannon Cochran MD LAB BLOOD ORDERABLES Final Re sult [facility] [address] [place] [phone] * (ABNORMAL) Sodium (09/12/2025) Only the most recent of2 resultswithin the time period is included. Sodium 132(L) 135 - 146 mmol/L [facility] 09/12/2025 09/11/2025 5:1 0 AM MEDICAL AUDITOR Narrative Resulting Agency Comment Performing Organization Information: Site ID: [place] Name: [facility] [place] Address: [address] [place] [phone] Director: Sathya Coronado MD us Shannon Cochran MD LAB BLOOD ORDERABLES Final Re sult Performing Organization Address [facility] Co de Phone Number [facility] [id number] [place] [phone] * (ABNORMAL) Protein, total (09/12/2025) Only the most recent of2 resultswithin the time period is included. Total Protein 5.8(L) 6.1 - 8.1 g/dL [facility] 09/12/2025 09/11/2025 5:1 0 AM MEDICAL AUDITOR Narrative Resulting Agency Comment Performing Organization Information: Site ID: JOON Name: [facility] Address: [address] [place] [phone] Director: Sathya Coronado MD us Shannon Cochran MD LAB BLOOD ORDERABLES Final Re sult Performing Organization Address [facility] Co de Phone Number [facility] [address] [place] [phone] * (ABNORMAL) Potassium (09/12/2025) Only the most recent of2 resultswithin the time period is included. Potassium 5.5(H) 3.5 - 5.3 mmol/L [facility] 09/12/2025 09/11/2025 5:1 0 AM MEDICAL AUDITOR Narrative Resulting Agency Comment Performing Organization Information: Site ID: JOON Name: [facility] Address: [address] [place] [phone] Director: Sathya Coronado MD us Shannon Cochran MD LAB BLOOD ORDERABLES Final Re sult Performing Organization Address [facility] Co de Phone Number [facility] [address] [place] [phone] * (ABNORMAL) Phosphorus (09/12/2025) Only the most recent of2 resultswithin the time period is included. Phosphorus 8.2(H) 3.0 - 4.5 mg/dL [facility] 09/12/2025 09/11/2025 5:1 0 AM MEDICAL AUDITOR Narrative Resulting Agency Comment Performing Organization Information: Site ID: JOON Name: [facility] Address: [address] [place] [phone] Director: Sathya Coronado MD Shannon Cochran MD LAB BLOOD ORDERABLES Final Re sult Performing Organization Address [facility] Co de Phone Number [facility] [address] * Alkaline phosphatase (09/12/2025) Alkaline Phosphatase 75 35 - 144 U/L [facility] 09/12/2025 09/11/2025 5:1 0 AM MEDICAL AUDITOR Narrative Resulting Agency Comment Performing Organization Information: Site ID: JOON Name: [facility] [place] Address: [address] [place] [phone] Director: Sathya Coronado MD Shannon Cochran MD LAB BLOOD ORDERABLES Final Re sult Performing Organization Address [facility] Co de Phone Number [facility] [place] [address] * (ABNORMAL) PTH, Intact (09/12/2025) Parathyroid Hormone, Intact 87(H) 16 - 77 pg/mL [facility] Comment: Interpretive Guide Intact PTH Calcium ------- Normal Parathyroid Normal Normal Hypoparathyroidism Low or Low Normal Low Hyperparathyroidism Primary Normal or High High Secondary High Normal or Low Tertiary High High Non-Parathyroid Hypercalcemia Low or Low Normal High 09/12/2025 09/11/2025 5:1 0 AM MEDICAL AUDITOR Narrative Resulting Agency Comment Performing Organization Information: Site ID: JOON Name: [facility] Address: [address] [place], [place] [address] [address] Director: Sathya Coronado MD us Shannon Cochran MD LAB BLOOD ORDERABLES Final Re sult Performing Organization Address [facility]/ZIP Co de Phone Number [facility] [address] [place] [phone] * Magnesium (09/12/2025) Only the most recent of2 resultswithin the time period is included. Magnesium 2.5 1.6 - 2.5 mg/dL [facility] 09/12/2025 09/11/2025 5:1 0 AM MEDICAL AUDITOR Narrative Resulting Agency Comment Performing Organization Information: Site ID: JOON Name: [facility] Address: [address] [place] [phone] Director: Sathya Coronado MD us Shannon Cochran MD LAB BLOOD ORDERABLES Final Re sult Performing Organization Address [facility] Co de Phone Number [facility] [address] * (ABNORMAL) Glucose, random (09/12/2025) Only the most recent of2 resultswithin the time period is included. Glucose 146(H) 65 - 99 mg/dL [facility] Comment: For someone without known diabetes, a glucose value >125 mg/dL indicates that they may have diabetes and this should be confirmed with a follow-up test. 09/12/2025 09/11/2025 5:1 0 AM MEDICAL AUDITOR Narrative Resulting Agency Comment Performing Organization Information: Site ID: JOON Name: [facility] Address: [address] [place], [place] [address] [address] Director: Sathya Coronado MD us Shannon Cochran MD LAB BLOOD ORDERABLES Final Re sult Performing Organization Address City/[facility]/ZIP Co de Phone Number [facility] [address] * (ABNORMAL) Ferritin (09/12/2025) Ferritin 654(H) 38 - 380 ng/mL [facility] 09/12/2025 09/11/2025 5:1 0 AM MEDICAL AUDITOR Narrative Resulting Agency Comment Performing Organization Information: Site ID: JOON Name: [facility] Address: [address] [place] [phone] Director: Sathya Coronado MD us Shannon Cochran MD LAB BLOOD ORDERABLES Final Re sult Performing Organization Address [facility] Co de Phone Number [facility] [address] * (ABNORMAL) Calcium (09/12/2025) Only the most recent of2 resultswithin the time period is included. Calcium 8.3(L) 8.6 - 10.0 mg/dL [facility] 09/12/2025 09/11/2025 5:1 0 AM MEDICAL AUDITOR Narrative Resulting Agency Comment Performing Organization Information: Site ID: JOON Name: [facility] Address: [address] [place] [phone] Director: Sathya Coronado MD us Shannon Cochran MD LAB BLOOD ORDERABLES Final Re sult Performing Organization Address [facility] Co de Phone Number [facility] [address] * Albumin (09/12/2025) Only the most recent of2 resultswithin the time period is included. Albumin 3.9 3.6 - 5.1 g/dL [facility] 09/12/2025 09/11/2025 5:1 0 AM MEDICAL AUDITOR Narrative Resulting Agency Comment Performing Organization Information: Site ID: JOON Name: [facility] Address: [address] [place] [address] Director: Sathya Coronado MD Shannon Cochran MD LAB BLOOD ORDERABLES Final Re sult Performing Organization Address [facility]/ZIP Co de Phone Number [facility] [address] [place] [address] * (ABNORMAL) HEMATOLOGY (08/08/2025) Only the most recent of4 resultswithin the time period is included. Pathologist [facility] Hemoglobin 10.5(L) 14.0 - 18.0 g/dL [facility] Hemoglobin x 3 31.5(L) 42.0 - 54.0 % [facility] 08/08/2025 08/09/2025 9:2 2 AM CDT Narrative [facility] - 08/09/2025 Unless otherwise specified, test(s) performed at: [facility], [address] [place] [address] CHUCKING LATHE OPERATOR: Dar Kang M.D. For any questions, please call customer service at FREQUENCY:OTHER Resulting Agency Comment Specimen source: Blood Shannon Cochran MD LAB BLOOD ORDERABLES Final Re sult Performing Organization Address City/[facility]/ZIP Co de Phone Number [facility] [...] 08/09/2025 Unless otherwise specified, test(s) performed at: [facility], [address] [place] [address] CHUCKING LATHE OPERATOR: Dar Kang M.D. For any questions, please call customer service at FREQUENCY:OTHER Resulting Agency Comment Specimen source: Serum us Shannon Cochran MD LAB BLOOD ORDERABLES Edited R esult - Final Performing Organization Address [facility] de Phone Number [facility] See order comments or contact performing lab Unknown, [place] * HD [employer] (08/03/2025) Only the most recent of2 resultswithin the time period is included. % Urea Reduction 78 65 - 80 % [facility] 08/03/2025 08/04/2025 9:5 5 AM CDT Narrative Resulting Agency Comment Specimen source: Plasma us Shannon Cochran MD LAB BLOOD ORDERABLES Final Re sult Performing Organization Address [facility] de Phone Number [facility] See order comments or contact performing lab Unknown, [place] * (ABNORMAL) POST CHEMISTRY (08/03/2025) Only the most recent of2 resultswithin the time period is included. BUN Post Dialysis 5(L) 6 - 19 mg/dL [facility] 08/03/2025 08/04/2025 9:5 5 AM CDT Narrative [facility] - 08/04/2025 Unless otherwise specified, test(s) performed at: [facility], [address] [place] [address] CHUCKING LATHE OPERATOR: Dar Kang M.D. For any questions, please call customer service at FREQUENCY:OTHER Resulting Agency Comment Specimen source: Plasma us Shannon Cochran MD LAB BLOOD ORDERABLES Final Re sult [facility] See order comments or contact performing lab Unknown, [place] * (ABNORMAL) Hemoglobin A1c (12/15/2016 12:00 AM MEDICAL AUDITOR) Hemoglobin A1C 8.6(H) 4.0 - 6.0 % SNA Comment per courtesy lab ms SNA 12/15/2016 us Riki Vogel MD LAB BLOOD ORDERABLES Fi nal Result SNA from Last 3 Months or Most Recently Relevant to Health Maintenance Insurance Medicaid [place] ([id number]) UNIVERSITY [facility] Medicare
--- OUTSIDE RECORDS SUMMARY | 2025-10-07 18:48 | XMS_ITS | Encounter Summary ---
Author Organization [facility], [facility] Address [address] [place] [address] Phone Care Team Providers Care Hospital Carrier Name Role Phone Unavailable Primary Care Provider Unavailabl e Reason for Visit * Reason Comments Med Refill Encounter Details Date Type Department Care Team (Late st Contact Info) Description 09/21/20[facility] [address] [email or web address] [address] [place] [address] Beatrice Young NP [address] [employer] [address] [place] [address] Social History Tobacco Use Types [...]
--- OUTSIDE RECORDS SUMMARY | 2025-10-07 18:48 | XMS_ITS | Encounter Summary ---
Author Organization [facility], [facility] Address [address] [place] [address] Phone Care Team Providers Care Injection Molding Supervisor Name Role Phone Unavailable Primary Care Provider Rupal e Encounter Details Date Type Department Care Team (Late st Contact Info) Description 10/02/2025 Treatment [facility] [place], [facility] [address] [place] [address] Shannon Cochran MD [address] [place] [address] Hypertensive chronic kidney disease with [...] Abimael Cochran, 1970, 55y, M Dialysis Location: [facility] Attending Administration Specialist: Shanonn Cochran Service Date: 10/02/2025 Service Provider: Shannon [...]
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
[2025-10-07 21:10] LABS: Hematocrit 37.5 % (37-53); Hemoglobin 11.90 g/dL (11.27-16.99); Mean Corpuscular HGB Conc 31.7 g/dL (30-55); Mean Corpuscular Hemoglobin 26.4 pg (27-33); Mean Corpuscular Volume 83.1 fl (82-101); Nucleated Red Blood Cells % 0 %; Platelet Count 145 10^3/cmm (157-399); Red Blood Count 4.51 10^6/uL (3.85-5.65); White Blood Count 10.46 10^3/uL (3.29-11.43)
[2025-10-07 21:28] LABS: Alanine Aminotransferase 16 U/L (0-41); Albumin Level 4.2 g/dL (3.5-5.2); Alkaline Phosphatase 101 U/L (40-130); Anion Gap 24.1 (5-19); Aspartate Amino Transferase 16 U/L (0-40); Blood Urea Nitrogen 62 mg/dL (6-20); Calcium 9.2 mg/dL (8.5-10.5); Carbon Dioxide 17 mmol/L (22-29); Chloride 99 mmol/L (98-107); Globulin 2.4 g/dL (1.3-4.6); Glucose 213 mg/dL (65-115); Osmolality Calculated 302 mOsm/kg (285-295); Potassium 6.1 mmol/L (3.5-5.1); Sodium 134 mmol/L (136-145); Total Protein 6.6 g/dL (6.6-8.7)
--- NOTE | 2025-10-07 21:34 | CTR_ITS ---
PROCEDURE INFORMATION: Exam: CTA Chest With Contrast Exam date and time: 10/07/2025 9:59 PM Age: 55 years old Clinical indication: Cough and shortness of breath; Prior surgery; Surgery date: 6+ months; Surgery type: Dialysis cath. Coronary stents; C/O hemotpysis with SOB. History of copd. ; Additional info: Hemoptysis, esr on hd; Scan despite creatitine. TECHNIQUE: Imaging protocol: Computed tomographic angiography of the chest with contrast. Exam focused on the arteries. 3D rendering (Not supervised by radiologist): MIP and/or 3D reconstructed images were created by the technologist. Radiation optimization: All CT scans at this facility use at least one of these dose optimization techniques: automated exposure control; mA and/or kV adjustment per patient size (includes targeted exams where dose is matched to clinical indication); or iterative reconstruction. Contrast material: OMNI 350; Contrast volume: 80 ml; Contrast route: INTRAVENOUS (IV); COMPARISON: CR (CHEST, ) 10/07/2025 8:10 PM RADIATION DOSE METRICS: Total DLP (mGy-cm): 516.23 FINDINGS: Pulmonary arteries: Normal. No pulmonary emboli. Aorta: Unremarkable. No aortic aneurysm. No aortic dissection. Lungs: There is left lower lobe lung consolidation with air bronchograms. No dominant lung mass. Pleural spaces: There is a moderate left and small right pleural effusion. No pneumothorax. Heart: Unremarkable. No cardiomegaly. No pericardial effusion. Lymph nodes: Unremarkable. No enlarged lymph nodes. Bones/joints: Degenerative change is identified in the spine. There is no evidence for acute fracture or malalignment. Soft tissues: Unremarkable. CT/CT angio chest PE protcl [id number] IMPRESSION: There is left lower lobe lung consolidation consistent with pneumonia.
--- NOTE | 2025-10-07 21:35 | ECG_ITS ---
[facility] 2025[facility]10[facility]07 Pat Name: Abimael Cochran Department: Room: Gender: Male Electric Plater: : 1970 Requested By: Teresita Yougn Order Number: [id number] Benjamin MD: ROMIE KEATING Measurements Intervals [place] Rate: 79 P: 39 DE: 196 QRS: -20 QRSD: 108 T: 53 QT: 425 QTc: 489 Interpretive Statements SINUS RHYTHM MINIMAL VOLTAGE CRITERIA FOR LVH, CONSIDER NORMAL VARIANT [MEETS CRITERIA IN ONE OF: R(aVL), S(V1), R(V5), R(V5/V6)+S(V1)] NONSPECIFIC ST & T-WAVE ABNORMALITY Compared to ECG 10/07/2025 12:16:28 T-wave abnormality now present Myocardial infarct finding no longer present Electronically Signed On 10-07-2025 22:47:59 GOLF RANGE ATTENDANT by ROMIE KEATING [id number]
[2025-10-07 21:56] LABS: Troponin(5th) Baseline 98 ng/L (0-15)
[2025-10-07] MEDS: iohexol 350 mg/mL 500 mL Btl (per mL) IV (22:02)
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
--- NOTE | 2025-10-07 22:45 | ECG_ITS ---
[facility]07 Pat Name: Abimael Cochran Department: Room: Gender: Male Spool Maker: : 1970 Requested By: Teresita Young Order Number: [id number] Reading MD: ROMIE KEATING Measurements Intervals [place] Rate: 80 P: 41 MA: 198 QRS: -19 QRSD: 106 T: 58 QT: 429 QTc: 498 Interpretive Statements SINUS RHYTHM LEFT VENTRICULAR HYPERTROPHY AND ST-T CHANGE [VOLTAGE CRITERIA PLUS ST/T ABNORMALITY] Compared to ECG 10/07/2025 21:48:13 ST (T wave) deviation now present T-wave abnormality no longer present Electronically Signed On 10-07-2025 23:16:18 BEAN SNIPPER by ROMIE KEATING [id number]
[2025-10-07 22:56] LABS: NT Pro B Type Natriuretic Pept > 70000 pg/mL (0-125)
[2025-10-08] VITALS (14 sets, daily range): BP systolic 116–159; BP diastolic 64–86; PULSE 69–88; RESP 16–18; TEMP 36.4–36.7; O2SAT 90–96
[2025-10-08] MEDS: cefTRIAXone 1,000 mg SDV 1000 MG IVP ×2 (00:05→22:36)
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
--- NOTE | 2025-10-08 04:01 | USCV_ITS ---
Abimael Cochran Age: 55 Gender: M : 1970 Exam Date: 10/08/2025 09:52 Ordering Phys: Panchito Menjivar MD Technologist: Ex[place] [facility] [place]ication: as cp sob BP: 132 / 73 HR: 77 Rhythm: Sinus Technical Quality: Adequate MEASUREMENTS (Male / Female) Normal Values 2D ECHO LV Diastolic Diameter PLAX 5.8 cm 4.2 - 5.9 / 3.9 - 5.3 cm IVS Diastolic Thickness 1.3 cm 0.6 - 1.0 / 0.6 - 0.9 cm IVS Systolic Thickness 2.1 cm LVPW Diastolic Thickness 1.4 cm 0.6 - 1.0 / 0.6 - 0.9 cm LVPW Systolic Thickness 1.5 cm LVOT Diameter 2.2 cm LV Ejection Fraction 2D Teich 69.4 % LV Ejection Fraction MOD 4C 55.3 % LV Ejection Fraction MOD 2C 47.9 % LV Ejection Fraction 2C AL 48.1 % LA Diameter 4.9 cm RA Systolic Volume 4C AL 95.6 ml RA Systolic Volume 4C MOD 96.7 ml Aorta at Sinotubular Diameter 2.6 cm M-MODE LA Ao Ratio MM 1.6 AV Cusp Separation MM 2.4 cm DOPPLER AV Peak Velocity 161.7 cm/s LVOT Peak Velocity 104.0 cm/s AV Area Cont Eq vti 3.1 cm squared AV Area Cont Eq pk 2.4 cm squared MV Peak Velocity 149.0 cm/s MV Area PHT 4.6 cm squared Mitral E to A Ratio 1.3 TV Peak Velocity 268.0 cm/s TR Peak Velocity 307.0 cm/s TR Peak Gradient 37.7 mmHg TV Peak E Velocity 118.0 cm/s PV Peak Velocity 120.0 cm/s FINDINGS Left Ventricle Normal left ventricular size, systolic function and wall thickness, with no regional wall motion abnormalities. Left ventricular ejection fraction is estimated at 60 %. Grade II/IV diastolic dysfunction, moderately elevated filling pressures. Right Ventricle Normal right ventricular size and systolic function. Right Atrium Normal right atrial size. Left Atrium Moderately increased left atrial size. IA Septum Normal appearance of the interatrial septum. Mitral Valve Mildly thickened mitral valve. No mitral valve stenosis. Trace mitral valve regurgitation. Aortic Valve Normal aortic valve structure. No aortic valve stenosis or regurgitation. Tricuspid Valve Mild tricuspid valve regurgitation. Pulmonic Valve Normal pulmonic valve structure. No pulmonic valve stenosis or regurgitation. Pericardium No pericardial effusion. Aorta Normal diameter of the aortic root and ascending thoracic aorta. IVC Normal IVC diameter. CONCLUSIONS Normal left ventricular size, systolic function and wall thickness, with no regional wall motion abnormalities. Left ventricular ejection fraction is estimated at 60 %. Grade II/IV diastolic dysfunction, moderately elevated filling pressures. Mildly thickened mitral valve. No mitral valve stenosis. Trace mitral valve regurgitation. There is no pericardial effusion. Right atrial pressure is around 5 mm of mercury. Shantel Flores MD (Electronically Signed) Final Date: 08 October 2025 15:50 S
[2025-10-08 04:53] LABS: Procalcitonin 0.68 ng/mL (0-0.5)
[2025-10-08] MEDS: NIFEdipine ER (24 hr) 30 mg Tablet 60 MG PO (05:33)
[2025-10-08] MEDS: LOSARTAN 100 MG TABLET PO (05:33)
[2025-10-08] MEDS: heparin 5,000 unit/mL INJ 1 mL 5000 UNIT SUBCUT ×3 (05:55→21:28)
--- NOTE | 2025-10-08 10:51 | PM.CONSULT ---
Providers/Reason For Consult Consulting Physician/Specialty*: kommana/nephrology Reason for Consult*: ESRD Attending Physician: Francisca Lawler NP Primary Care Provider: ALONDRA Caldera History of Present Illness History of Present Illness Abimael Cochran is a 55 year old male Patient is a 55-year-old male with past medical history of end-stage renal disease on dialysis on dialysis per Wednesday schedule, hypertension, diabetes, coronary artery disease presented to the hospital due to syncope. Patient admits to dialysis x 2 sessions prior to arrival. Home medications reviewed, lab data reviewed-potassium is elevated at 6.1 creatinine was 9.1. Patient is currently getting dialysis, Patie Medications/Allergies Home Medications ?Medication ?Instructions ?Recorded ?Confirmed ?Last Taken ?Type atorvastatin 40 mg tablet 40 mg PO DAILY 11/07/20 09/20/25 07/22/25 History tamsulosin 0.4 mg capsule (Flomax) 0.4 mg PO DAILY 11/07/20 09/20/25 07/23/25 History aspirin 81 mg tablet,delayed 81 mg PO DAILY 02/03/21 09/20/25 07/23/25 History release bumetanide 0.5 mg tablet 0.5 mg PO DAILY 09/20/24 09/20/25 07/23/25 History clonidine 0.1 mg/24 hr weekly 1 patch transdermal .Weekly 11/16/24 09/20/25 07/16/25 History transdermal patch duloxetine 60 mg capsule,delayed 120 mg (2 x 60 mg) PO DAILY #60 11/16/24 09/20/25 07/23/25 Rx release caps sertraline 100 mg tablet (Zoloft) 200 mg (2 x 100 mg) PO DAILY #60 11/16/24 09/20/25 07/23/25 Rx tabs trazodone 100 mg tablet 400 mg (4 x 100 mg) PO .HS PRN 11/16/24 09/20/25 Unknown Rx insomnia #120 tabs metoprolol tartrate 100 mg tablet 100 mg PO BID 12/25/24 09/20/25 07/23/25 History nifedipine 60 mg tablet,extended 60 mg PO DAILY 12/25/24 09/20/25 07/23/25 History release 24 hr terazosin 5 mg capsule 5 mg PO DAILY 12/25/24 09/20/25 07/23/25 History Hinged Knee Brace #1 ea 01/02/25 09/20/25 Unknown Rx megestrol 400 mg/10 mL (40 mg/mL) 10 mg PO BID 02/20/25 09/20/25 07/23/25 History oral suspension bupropion HCl 300 mg 24 hr tablet, 300 mg PO QAM #30 tabs 03/20/25 09/20/25 07/23/25 Rx extended release (Wellbutrin XL) pantoprazole 40 mg tablet,delayed 40 mg PO BID POST GASTRIC SLEEVE 04/05/25 09/20/25 07/23/25 Rx release (Protonix) 30 days #60 tabs hydralazine 100 mg tablet 100 mg PO BID 04/12/25 09/20/25 07/23/25 History clopidogrel 75 mg tablet (Plavix) 75 mg PO DAILY 90 days #90 tabs 04/13/25 09/20/25 07/23/25 Rx nitroglycerin 0.4 mg sublingual 0.4 mg sublingual Q5M PRN Chest 04/18/25 09/20/25 Unknown Rx tablet Pain #20 tabs losartan 100 mg tablet 100 mg PO DAILY #90 tabs 05/10/25 09/20/25 07/23/25 Rx brexpiprazole 2 mg tablet (Rexulti) 2 mg PO DAILY 07/23/25 09/20/25 07/23/25 History cyclobenzaprine 10 mg tablet 10 mg PO TID PRN Muscle Spasm 07/23/25 09/20/25 Unknown History famotidine 20 mg tablet 20 mg PO DAILY 07/23/25 09/20/25 07/23/25 History hydroxyzine HCl 50 mg tablet 50 mg PO QID PRN Anxiety 07/23/25 09/20/25 Unknown History ropinirole 0.5 mg tablet 0.5 mg PO BEDTIME 07/23/25 09/20/25 07/22/25 History sevelamer carbonate 800 mg tablet 800 mg PO TID 07/23/25 09/20/25 07/23/25 History vitamin B complex-vitamin C-folic 1 tab PO DAILY 07/23/25 09/20/25 07/23/25 History acid 0.8 mg tablet (Ana-Yue) isosorbide mononitrate 30 mg 30 mg PO BIDWM #180 tabs 08/20/25 09/20/25 Unknown Rx tablet,extended release 24 hr diclofenac sodium 75 mg 75 mg PO Q12H PRN pain #20 tabs 09/11/25 09/20/25 Unknown Rx tablet,delayed release tizanidine 4 mg tablet 4 mg PO Q6H PRN muscle spasticity 09/11/25 09/20/25 Unknown Rx #20 tabs levetiracetam 500 mg tablet 500 mg PO DAILY 30 days #30 tabs 10/07/25 Unknown Rx (Keppra) methylprednisolone 4 mg tablets in See Rx Instructions PO .COMPLEX 10/07/25 Unknown Rx a dose pack (Medrol (Shayan)) #21 ea Allergies Allergy/AdvReac Type Severity Reaction Status Date / Time diphenhydramine (From Allergy Unknown Unknown Verified 10/07/25 18:52 Benadryl) ertapenem (From Invanz) Allergy Unknown Unknown Verified 10/07/25 18:52 Current Medications Generic Name Dose Route Start Last Admin [facility] Reason Stop Dose Admin Aspirin 81 mg 10/08/25 05:00 10/08/25 05:36 Aspirin 81 Mg Ec Tablet PO 81 mg DAILY ISABEL Administration Atorvastatin Calcium 40 mg 10/08/25 05:00 10/08/25 05:35 Atorvastatin 40 Mg Tablet PO 40 mg DAILY ISABEL Administration Bumetanide 0.5 mg 10/08/25 05:00 10/08/25 05:34 Bumetanide 1 Mg Tablet PO 0.5 mg DAILY ISABEL Administration Bupropion HCl 300 mg 10/08/25 05:00 10/08/25 05:34 Bupropion Xl (24 Hr) 300 Mg Tablet PO 300 mg QAM ISABEL Administration Clopidogrel Bisulfate 75 mg 10/08/25 05:00 10/08/25 05:31 Clopidogrel 75 Mg Tablet PO 75 mg DAILY ISABEL Administration Duloxetine HCl 120 mg 10/08/25 05:00 10/08/25 05:32 Duloxetine 60 Mg Capsule PO 120 mg DAILY ISABEL Administration Famotidine 20 mg 10/08/25 05:00 10/08/25 05:36 Famotidine 20 Mg Tablet PO 20 mg DAILY ISABEL Administration Heparin Sodium (Porcine) 5,000 unit 10/08/25 04:01 10/08/25 05:55 Heparin 5,000 Unit/Ml Inj 1 Ml SUBCUT 5,000 unit Q8H ISABEL Administration Hydralazine HCl 100 mg 10/08/25 05:00 10/08/25 05:35 Hydralazine 50 Mg Tablet PO 100 mg BID ISABEL Administration Insulin Human Lispro 0 unit 10/08/25 08:00 10/08/25 07:29 Insulin Lispro 100 Unit/1 Ml SUBCUT Not Given WM&BEDTIME [facility] Protocol Isosorbide Mononitrate 30 mg 10/08/25 08:00 10/08/25 09:08 Isosorbide Mononitrate Er 30 Mg Tablet PO 30 mg BIDWM ISABEL Administration Levetiracetam 500 mg 10/08/25 05:00 10/08/25 05:34 Levetiracetam 500 Mg Tablet PO 500 mg DAILY ISABEL Administration Losartan Potassium 100 mg 10/08/25 05:00 10/08/25 05:33 Losartan 100 Mg Tablet PO 100 mg DAILY ISABEL Administration Megestrol Acetate 10 mg 10/08/25 05:00 10/08/25 05:37 Megestrol 400 Mg/10 Ml Udc PO 10 mg BID ISABEL Administration Metoprolol Tartrate 100 mg 10/08/25 05:00 10/08/25 05:36 Metoprolol Tartrate 50 Mg Tablet DOBHOFF 100 mg BID ISABEL Administration Nifedipine 60 mg 10/08/25 05:00 10/08/25 05:33 Nifedipine Er (24 Hr) 30 Mg Tablet PO 60 mg DAILY ISABEL Administration Pantoprazole Sodium 40 mg 10/08/25 05:00 10/08/25 05:[address] 40 Mg Tablet PO 40 mg BID ISABEL Administration Sertraline HCl 200 mg 10/08/25 05:00 10/08/25 05:30 Sertraline 100 Mg Tablet PO 200 mg DAILY ISABEL Administration Sevelamer Carbonate 800 mg 10/08/25 05:00 10/08/25 05:33 Sevelamer 800 Mg Tablet PO 800 mg TID ISABEL Administration Tamsulosin HCl 0.4 mg 10/08/25 05:00 10/08/25 05:32 Tamsulosin 0.4 Mg Capsule PO 0.4 mg DAILY ISABEL Administration Tizanidine HCl 4 mg 10/08/25 04:32 10/08/25 05:36 Tizanidine 4 Mg Tablet PO 4 mg TID PRN Administration SPASMS PFSH Acute PFSH: Medical History (Updated 10/08/25 @ 04:00 by Panchito Menjivar MD) Peripheral neuropathy Generalized anxiety disorder Major depressive disorder, recurrent severe without psychotic features Atherosclerotic heart disease [place] coronary artery w/angina pectoris Diabetes mellitus Hypertension Psychiatric care GERD (gastroesophageal reflux disease) Chronic kidney disease Hypertension Hyperlipidemia Diabetes Morbid obesity Bereavement Chronic major depressive disorder Colon polyp Encounter for screening colonoscopy Surgical History History of colonoscopy with polypectomy History of tonsillectomy History of foot surgery History of shoulder surgery Family History Denies family history of Anesthesia complication Bleeding disorder Social History Smoking and tobacco/nicotine status: former use of tobacco/nicotine Quit status (tobacco/nicotine): has tried quititng Number of times tried to quit tobacco: 3 Second hand smoke exposure: Yes (Occ.) Alcohol intake: current Alcohol intake frequency: holidays/special occasions only Alcohol type: beer Substance/Drug Use: current Substance/Drug use frequency: few times a week Other substance/drug use details: A few times a week. Vitals/I&O/Wt Last Vital Signs Temp 98.0 F 10/08/25 08:14 Pulse 77 10/08/25 09:33 Resp 17 10/08/25 08:14 BP 136/72 10/08/25 09:33 Pulse Ox 94 10/08/25 08:14 O2 Del Method Room Air 10/08/25 08:14 O2 Flow Rate 2 10/08/25 02:30 10/07/25 10/08/25 10/08/25 22:59 06:59 14:59 Intake Total 360 / 360 Balance 360 / 360 Weight last 48 hrs Weight 99.79 kg Physical Exam Narrative: nt is awake alert, no acute distress Getting dialysis No JVD PERRLA S1-S2 regular rate and rhythm Lungs with decreased breath sounds bilaterally Abdomen soft nontender Extremities no pedal edema Skin no rash Data 10/07/25 21:03 10/07/25 21:03 A&P Assessment and plan 1. ESRD (end stage renal disease) on dialysis: Plan: 1. End-stage renal disease: On MWF schedule, missed HD, plan for hemodialysis today 2. History of hypertension: Resume home meds 3. Hyperkalemia, low K diet and HD as above 4. Syncope: Checking orthostatics and echocardiogram 5. Left lower lobe pneumonia, management per primary team Patient evaluated using audiovisual cart. Time spent 40 minutes. PDMP PDMP Reviewed: Not Reviewed Coding Level of Care Code Acute Code for Chg Fwd Diagnoses ESRD (end stage renal disease) on dialysis N18.6; Z99.2
--- NOTE | 2025-10-08 11:00 | PC.HD ---
LAVF with bruit and thrill. Patient also has R IJ HD Catheter. Per patient, his LAVF bleeds badly, and requests that we access the HD catheter instead. HD catheter accessed without difficulty.
[2025-10-08] MEDS: heparin, porcine 1,000 unit/mL INJ 10 mL 1000 UNIT IV (13:43)
[2025-10-08] MEDS: heparin, porcine 1,000 unit/mL INJ 10 mL 10000 UNIT INTRACATH (13:43)
[2025-10-09] VITALS (7 sets, daily range): BP systolic 101–149; BP diastolic 55–77; PULSE 72–81; RESP 16–18; TEMP 36.4–36.8; O2SAT 90–96
[2025-10-09] MEDS: NIFEdipine ER (24 hr) 30 mg Tablet 60 MG PO (05:40)
[2025-10-09] MEDS: LOSARTAN 100 MG TABLET PO (05:41)
[2025-10-09] MEDS: heparin 5,000 unit/mL INJ 1 mL 5000 UNIT SUBCUT ×3 (05:42→20:41)
[2025-10-09 07:05] LABS: Hematocrit 31.2 % (37-53); Hemoglobin 10.30 g/dL (11.27-16.99); Mean Corpuscular HGB Conc 33.0 g/dL (30-55); Mean Corpuscular Hemoglobin 27.6 pg (27-33); Mean Corpuscular Volume 83.6 fl (82-101); Nucleated Red Blood Cells % 0 %; Platelet Count 147 10^3/cmm (157-399); Red Blood Count 3.73 10^6/uL (3.85-5.65); White Blood Count 7.69 10^3/uL (3.29-11.43)
[2025-10-09 07:18] LABS: Anion Gap 22.8 (5-19); Blood Urea Nitrogen 46 mg/dL (6-20); Calcium 8.6 mg/dL (8.5-10.5); Carbon Dioxide 20 mmol/L (22-29); Chloride 98 mmol/L (98-107); Glucose 81 mg/dL (65-115); Osmolality Calculated 295 mOsm/kg (285-295); Potassium 3.8 mmol/L (3.5-5.1); Sodium 137 mmol/L (136-145)
--- NOTE | 2025-10-09 09:43 | PC.CHAP ---
Pastoral Care Encounter/Spiritual Assessment Type of Contact [] Declined order processing specialist visit [] Patient/Family/Request visit [] Outpatient visit [] Follow-up visit [] Physician referral [] Code/Alert [x] Routine visit [] Staff referral [] Actively dying [] Patient sleeping [x] Family support [] [] Out of room [] Palliative care [] [] Receiving care in room [] Pre-surgical visit [] Trauma [] Long length of stay [] ICU visit [] Other: Relational/Emotional Strength [x] Patient feels connected with others/family/visitors/staff [] Distress [] Loneliness/isolation [] Abandonment Spirituality of Patient [x] Person of Jania [] Attends Spiritism of their Jania [x] Believes in Prayer [] Reads Bible or Yazidism materials [] There are Spiritual issues to be addressed Applications Administrator Interventions [xx] Prayer [x] Active listening [] Non-anxious presence [x] Spiritual/emotional support [] Crisis/trauma care [] Spiritual counseling [] Bereavement support [] Provided bereavement packet [] Provided Bible/devotional materials [] Provided toy/stuffed animal, coloring book to patient or family member [] Provided Communion [] Anointing/[place] [] Salvation [x] Completed spiritual assessment [] Other: Impact on Illness or Injury [] Angry [] Fearful [] Anxious [] Often cries [] Exhaustion [] Unable to work [] Unable to attend congregational [] Unable to walk/stand [] Unable to read [] Unable to drive [] Unable to eat/drink [] Unable to sleep [] Unable to be with family [] Patient intubated [] Other: Summary Time spent with patient 5 min
--- NOTE | 2025-10-09 10:39 | P.PN_ITS ---
Subjective 2 Subjective: s/p hD yesterday Medications: Reviewed: Yes Vitals/I&O/Wt Last Vital Signs Temp 98.2 F 10/09/25 07:36 Pulse 79 10/09/25 07:36 Resp 17 10/09/25 07:36 BP 143/69 10/09/25 07:36 Pulse Ox 90 10/09/25 07:36 O2 Del Method Room Air 10/09/25 07:36 O2 Flow Rate 2 10/08/25 02:30 10/08/25 10/09/25 10/09/25 22:59 06:59 14:59 Intake Total 960 / 1820 250 / 2070 120 / 120 Output Total 375 / 3375 225 / 225 Balance 585 / -1555 250 / -1305 -105 / -105 Weight last 48 hrs Weight 103.5 kg Weight 99.79 kg Physical Exam 2 Narrative: nt is awake alert, no acute distress Getting dialysis No JVD PERRLA S1-S2 regular rate and rhythm Lungs with decreased breath sounds bilaterally Abdomen soft nontender Extremities no pedal edema Skin no rash Data 10/10/25 02:49 10/10/25 02:49 A&P Assessment and plan 1. ESRD (end stage renal disease) on dialysis: Plan: 1. End-stage renal disease: On MWF schedule, hd yesterday , next hd tomorrow 2. History of hypertension: Resume home meds 3. Hyperkalemia, low K diet and HD as above 4. Syncope: Checking orthostatics and echocardiogram 5. Left lower lobe pneumonia, management per primary team Patient evaluated using audiovisual cart. Time spent 40 minutes. PDMP PDMP Reviewed: Not Reviewed Attestations 2 Medical Necessity Statement*: per oscar Coding Level of Care Code Acute Code for Chg Fwd Diagnoses ESRD (end stage renal disease) on dialysis N18.6; Z99.2
--- NOTE | 2025-10-09 18:16 | P.PN_ITS ---
Subjective 2 Subjective: Patient is a very pleasant 55-year-old male seen and examined at bedside on hospital rounds this morning. Patient sitting up in bed with family at the bedside stating that he continues to feel weak but he feels so very much better today. Patient had dialysis yesterday and will have dialysis again tomorrow, greatly appreciate continued consultation and management with nephrology. Patient will have continued interventions inpatient. Reviewed vital signs very stable: Blood pressure 149/76, pulse 78, respiration 18, temp 98.0, O2 sat 90% on room air. Review of labs WBC 7.69, hemoglobin 10.30, improved creatinine 6.9, BUN 46, potassium 3.8, phosphorus 5.4. Vitals/I&O/Wt Last Vital Signs Temp 98.0 F 10/09/25 15:13 Pulse 78 10/09/25 15:13 Resp 18 10/09/25 15:13 BP 149/76 10/09/25 15:13 Pulse Ox 90 10/09/25 15:13 O2 Del Method Room Air 10/09/25 15:13 O2 Flow Rate 2 10/08/25 02:30 10/09/25 10/09/25 10/09/25 06:59 14:59 22:59 Intake Total 250 / 2070 480 / 480 120 / 600 Output Total 225 / 225 Balance 250 / -1305 255 / 255 120 / 375 Weight last 48 hrs Weight 103.5 kg Weight 99.79 kg Physical Exam 2 Const: COMMON NORMALS: no acute distress and patient oriented x3 GENERAL APPEARANCE: cooperative ORIENTATION/CONSCIOUSNESS: Yes awake, Yes oriented to person, Yes oriented to place and Yes oriented to time Chest: COMMONS NORMALS: normal inspection of the chest and normal palpation of entire chest wall CHEST: Yes Symmetrical chest wall rise Resp: COMMON NORMALS: normal respiratory effort, No retractions, No use of accessory muscles and clear to auscultation bilaterally AUSCULTATION: clear to auscultation bilaterally Cardio: COMMON NORMALS: regular rate, regular rhythm, S1 normal heart sound present, S2 normal heart sound present, No gallops present (Cardio), No clicks present (Cardio), No murmurs present (Cardio) and No rub (Cardio) RATE: r egular rate RHYTHM: regular rhythm HEART SOUNDS: S1 normal heart sound present and S2 normal heart sound present PERIPHERAL PULSES: radial pulses present positive right 2+ and femoral pulses present positive right 2+ Neuro: COMMON NORMALS: patient oriented x3 and moves all extremities S ENSORIUM/ORIENTATION: Yes oriented to person, Yes oriented to place and Yes oriented to time Data 10/09/25 05:35 10/09/25 05:35 A&P Assessment and plan 1. Syncope: - Resolved - Admit for ongoing telemetry monitoring - Update echocardiogram - Continue usual home medications - Patient states he has never taken Keppra before. Will continue this however. Outpatient neurologic follow-up with Dr. Hickey 2. Left lower lobe pneumonia: - As seen on chest imaging - However, clinically, does not appear to have pneumonia - Will continue antibiotics for now - Procalcitonin 0.68 3. ESRD (end stage renal disease) on dialysis: - Greatly appreciate nephrology consultation and management - Dialysis 10/08, repeat dialysis tomorrow 4. Benign essential HTN: - Continue home antihypertensive medications 5. Type 2 diabetes mellitus: - Placed on low SSI PDMP PDMP Reviewed: Not Reviewed Attestations 2 Medical Necessity Statement*: Continues inpatient to manage his pneumonia and ESRD, will most likely discharge in the next 24 to 48 hours. Coding Level of Care Code 91199 Diagnoses Syncope R55 Left lower lobe pneumonia J18.9 ESRD (end stage renal disease) on dialysis N18.6; Z99.2 Benign essential HTN I10 Type 2 diabetes mellitus E11.9
[2025-10-09] MEDS: cefTRIAXone 1,000 mg SDV 1000 MG IVP (22:19)
[2025-10-10 03:44] LABS: Hematocrit 31.8 % (37-53); Hemoglobin 10.10 g/dL (11.27-16.99); Mean Corpuscular HGB Conc 31.8 g/dL (30-55); Mean Corpuscular Hemoglobin 26.3 pg (27-33); Mean Corpuscular Volume 82.8 fl (82-101); Nucleated Red Blood Cells % 0 %; Platelet Count 156 10^3/cmm (157-399); Red Blood Count 3.84 10^6/uL (3.85-5.65); White Blood Count 7.45 10^3/uL (3.29-11.43)
[2025-10-10 04:00] VITALS: BP 160/82; PULSE 82; RESP 16; TEMP 36.4; O2SAT 93
[2025-10-10 04:01] LABS: Anion Gap 23.1 (5-19); Blood Urea Nitrogen 57 mg/dL (6-20); Calcium 8.5 mg/dL (8.5-10.5); Carbon Dioxide 19 mmol/L (22-29); Chloride 97 mmol/L (98-107); Glucose 95 mg/dL (65-115); Osmolality Calculated 296 mOsm/kg (285-295); Potassium 4.1 mmol/L (3.5-5.1); Sodium 135 mmol/L (136-145)
[2025-10-10] MEDS: NIFEdipine ER (24 hr) 30 mg Tablet 60 MG PO (04:46)
[2025-10-10] MEDS: heparin 5,000 unit/mL INJ 1 mL 5000 UNIT SUBCUT (04:46)
[2025-10-10] MEDS: LOSARTAN 100 MG TABLET PO (04:47)
[2025-10-10] MEDS: ondansetron 2 mg/ML SDV 2 mL 4 MG IVP (05:38)
[2025-10-10 05:44] VITALS: PULSE 67; RESP 18; O2SAT 97
[2025-10-10 07:54] VITALS: BP 150/79; PULSE 76; RESP 15; TEMP 36.7; O2SAT 90
[2025-10-10 09:44] VITALS: BP 140/79; PULSE 81; RESP 16; TEMP 36.6
--- NOTE | 2025-10-10 09:56 | PC.SOCIAL ---
IMM Update pg 2 of IMM Updated and reviewed w/ patient. Copy provided and copy dated, initialed and placed in chart.
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
[2025-10-10 11:00] VITALS: BP 160/90; PULSE 81; RESP 15
[2025-10-10 13:09] VITALS: BP 177/101; PULSE 80; RESP 18; TEMP 36.5
--- NOTE | 2025-10-10 14:53 | P.PN_ITS ---
Subjective 2 Subjective: getting HD Medications: Reviewed: Yes Vitals/I&O/Wt Last Vital Signs Temp 97.7 F 10/10/25 13:09 Pulse 80 10/10/25 13:09 Resp 18 10/10/25 13:09 BP 177/101 10/10/25 13:09 Pulse Ox 90 10/10/25 07:54 O2 Del Method Room Air 10/10/25 07:54 O2 Flow Rate 2 10/08/25 02:30 10/09/25 10/10/25 10/10/25 22:59 06:59 14:59 Intake Total 360 / 840 475 / 1315 840 / 840 Output Total 50 / 275 3500 / 3500 Balance 360 / 615 425 / 1040 -2660 / -2660 Weight last 48 hrs Weight 98.6 kg Physical Exam 2 Narrative: nt is awake alert, no acute distress Getting dialysis No JVD PERRLA S1-S2 regular rate and rhythm Lungs with decreased breath sounds bilaterally Abdomen soft nontender Extremities no pedal edema Skin no rash Data 10/10/25 02:49 10/10/25 02:49 A&P Assessment and plan 1. ESRD (end stage renal disease) on dialysis: Plan: 1. End-stage renal disease: On MWF schedule, hd yesterday , next hd today 2. History of hypertension: Resume home meds 3. Hyperkalemia, low K diet and HD as above 4. Syncope: Checking orthostatics and echocardiogram 5. Left lower lobe pneumonia, management per primary team Patient evaluated using audiovisual cart. Time spent 40 minutes. PDMP PDMP Reviewed: Not Reviewed Attestations 2 Medical Necessity Statement*: per oscar Coding Level of Care Code Acute Code for Chg Fwd Diagnoses ESRD (end stage renal disease) on dialysis N18.6; Z99.2
--- OUTSIDE RECORDS SUMMARY | 2025-10-15 14:43 | XMS_ITS | Encounter Summary ---
Author Organization [facility] Address [address] [facility] [address] [place] [address] Phone Care Team Providers Care Electrician Radio Name Role Phone Unavailable Primary Care Provider Unavailabl e Reason for Visit * Reason Comments Med Refill Encounter Details Date Type Department Care Team (Late st Contact Info) Description [facility] [address] [facility] [address] [place] [address] Beatrice Young NP [address] [facility] [employer] [facility] [address] [place] [address] Social History Tobacco Use Types [...]
--- OUTSIDE RECORDS SUMMARY | 2025-10-15 14:43 | XMS_ITS | Encounter Summary ---
Author Organization [facility] Address [address] [place] [address] Phone Care Team Providers Care Pay Per Click Strategist Name Role Phone Unavailable Primary Care Provider Unavailabl e Encounter Details Date Type Department Care Team (Late st Contact Info) Description 04/23/2025 TCM in Dialysis [facility] [address] [place] [address] Vania Dudley NP [address] [place] [address] Social History Tobacco Use Types [...] 04/23/2025 The patient was seen for a [id number] visit as part of Transitional Care Management services. Primary cause of renal failure: I12.9 - Hypertensive chronic kidney disease with stage 1 through stage 4 chronic kidney disease, or unspecified chronic kidney disease Attending Corn Husker: NATE SAHU Dialysis Location: [facility] Schedule: Shift: 1 INTERACTIVE CONTACT Contact [...] 97.6*F Current Dialysis Vitals BP Sit: 181/88 AP/DOCKET CLERK: -- Pulse: 71 CARE COORDINATION Post-discharge follow-up appointments reviewed with the patient. Established or re-established referrals. COMMENTS: fistulogram IMPRESSION & PLAN COMMENTS: CP- heart cath s/p stent placement. Started Imdur ESRD- using CVC. Will have fistulogram done soon. HD per MWF. VISIT DIAGNOSES CPT Code 88014 - High complexity, seen within 7 days [...]
--- OUTSIDE RECORDS SUMMARY | 2025-10-15 14:43 | XMS_ITS | Clinical Summary ---
Author Organization [facility] Facility Address [address] [place] [address] Care Team Providers Care Blow Up Operator Name Role Phone Unavailable Primary Care Provider Unavailhans e Encounters Date Type Department Care Team Description 10/15/2025 Treatment [email or web address], [facility] [address] [place] [address] Merlyn Smith NP Pneumonia; Syncope and collapse; End stage renal disease; Dependence on renal dialysis 10/15/2025 TCM in Dialysis Clinic [email or web address], [facility] [address] [place] [address] Merlyn Smith NP 10/12/2025 [facility] [address] [place] [address] Shannon Cochran MD 10/02/2025 Orders Only [facility] [address] [place] [address] Shannon Cochran MD 10/02/2025 Treatment [email or web address], [facility] [address] [place] [address] Shannon Cochran MD Hypertensive chronic kidney disease with stage 5 chronic kidney disease or end stage renal disease; End stage renal disease; Dependence on renal dialysis 09/28/2025 Refill [facility], [facility] [address] [place] [address] Beatrice Young NP 09/26/2025 Orders Only [facility], [facility] [address] [place] [address] Shannon Cochran MD 09/26/2025 Refill [facility], [facility] [address] [place] [address] Beatrice Young NP 09/21/2025 [facility], [facility] [address] [place] [address] Shannon Cochran MD 09/21/2025 [facility], [facility] [address] [place] [address] Beatrice Young NP 09/19/2025 Orders Only [facility], [facility] [address] [place] [address] Shannon Cochran MD 09/17/[address] [place], [place] [address], [facility] [address] [place] [address] Merlyn Smith NP End stage renal disease; Dependence on renal dialysis 09/12/2025 Orders Only [facility], [facility] [address] [place] [address] Shannon Cochran MD 09/12/[address] [place] [address] [facility], [facility] [address] [place] [address] Beatrice Young NP End stage renal disease; Dependence on renal dialysis; Hypertensive chronic kidney disease with stage 1 through stage 4 chronic kidney disease, or unspecified chronic kidney disease 09/04/2025 Orders Only [facility], [facility] [address] [place] [address] Shannon Cochran MD 09/04/[address] [place] [address] [facility], [facility] [address] [place] [address] Beatrice Young NP End stage renal disease; Dependence on renal dialysis; Hypertensive chronic kidney disease with stage 1 through stage 4 chronic kidney disease, or unspecified chronic kidney disease 08/29/2025 Orders Only [facility], [facility] [address] [place] [address] Shannon Cochran MD 08/27/2025 Treatment 8[facility], [facility] [address] [place] [address] Shannon Cochran MD End stage renal disease; Dependence on renal dialysis 08/22/2025 [facility], [facility] [address] [place] [address] Shannon Cochran MD 08/20/2025 Treatment 8[facility], [facility] [address] [place] [address] Beatrice Young NP End stage renal disease; Dependence on renal dialysis; Hypertensive chronic kidney disease with stage 1 through stage 4 chronic kidney disease, or unspecified chronic kidney disease 08/15/2025 Orders [facility], [facility] [address] [place] [address] Shannon Cochran MD 08/13/2025 Treatment 8[facility], [facility] [address] [place] [address] Beatrice Young NP End stage renal disease; Dependence on renal dialysis; Hypertensive chronic kidney disease with stage 1 through stage 4 chronic kidney disease, or unspecified chronic kidney disease 08/08/2025 Orders Only [facility], [facility] [address] [place] [address] Shannon Cochran MD 08/06/2025 [facility] [address] [place] [address] Shannon Cochran MD End stage renal disease; Dependence on renal dialysis 08/03/2025 Orders [facility], [facility] [address] [place] [address] Shannon Cochran MD 08/01/2025 Orders Only [facility], [facility] [address] [place] [address] Shannon Cochran MD 07/30/[address] [place] [address] [facility] [address] [place] [address] Beatrice Young NP End stage renal disease; Dependence on renal dialysis; Hypertensive chronic kidney disease with stage 1 through stage 4 chronic kidney disease, or unspecified chronic kidney disease 07/19/2025 Refill [facility], [facility] [address] [place] [address] Beatrice Young NP 07/18/2025 Orders Only [facility], [facility] [address] [place] [address] Shannon Cochran MD 07/18/[address] [place] [address] [facility], [facility] [address] [place] [address] Merlyn Smith NP End stage renal disease; [...] Comments Blood Pressure 112/70 12/17/2016 11:00 AM PARI MUTUAL TICKET CHECKER Pulse 64 12/17/2016 11:00 AM PARI MUTUAL TICKET CHECKER Temperature - - Respiratory Rate - - Oxygen Saturation - - Inhaled Oxygen Concentration - - Weight 126 kg (277 lb 6.4 oz) 12/17/2016 11:00 A M PARI MUTUAL TICKET CHECKER Height 203.2 cm (6' 8 ) 12/17/2016 11:00 AM PARI MUTUAL TICKET CHECKER Body Mass Index 30.47 12/17/2016 11:00 AM PARI MUTUAL TICKET CHECKER Plan of Treatment Health Maintenance Due Date [...] Priority Date/Time Associated Diagnosis Comments HEMOGLOBIN Routine 10/12/2025 HEMOGLOBIN Routine 10/02/2025 HEMOGLOBIN Routine 09/26/2025 CO2, TOTAL Routine 09/26/2025 CHLORIDE Routine 09/26/2025 CREATININE, SERUM Routine 09/26/2025 [facility] RESULTS Routine 09/21/2025 POST DIALYS[facility] BUN Routine 09/21/2025 BUN Routine 09/21/2025 HEMOGLOBIN Routine 09/19/2025 CO2, TOTAL Routine 09/19/2025 CHLORIDE Routine 09/19/2025 CREATININE, SERUM Routine 09/19/2025 [facility] RESULTS Routine 09/12/2025 FERRITIN Routine 09/12/2025 [...] Routine 08/22/2025 CREATININE, SERUM Routine 08/22/2025 [facility] RESULTS Routine 08/15/2025 DIFFERENTIAL WITH WBC [...] CHEMISTRY Routine 08/08/2025 HEMATOLOGY Routine 08/08/2025 [facility] RESULTS Routine 08/03/2025 HD KINETICS Routine 08/03/2025 POST CHEMISTRY Routine 08/03/2025 CHEMISTRY Routine 08/03/2025 HEMATOLOGY Routine 08/01/2025 CHEMISTRY Routine 08/01/2025 CHEMISTRY Routine 07/18/2025 HEMATOLOGY Routine 07/18/2025 HEMOGLOBIN A1C Routine 12/15/2016 12:00 AM PARI MUTUAL TICKET CHECKER from Last 3 Months or Most Recently Relevant to Health Maintenance Results * (ABNORMAL) Hemoglobin (10/12/2025) Only the most recent of7 resultswithin the time period is included. Hemoglobin 11.0(L) 13.2 - 14.0 g/dL [facility] 10/12/2025 10/12/2025 4:4 0 PM PARI MUTUAL TICKET CHECKER Narrative Resulting Agency Comment Performing Organization Information: Site ID: JOON Name: [facility] Address: [address] [address] Director: Sathya Coronado MD us Shannon Cochran MD LAB BLOOD ORDERABLES Final Re sult [facility] [address] [place] [address] * Creatinine, serum (09/26/2025) Only the most recent of7 resultswithin the time period is included. Creatinine OTH mg/dL [facility] Comment: TEST NOT PERFORMED. An electronic test request was transmitted, but no specimen was received by the laboratory. Test has been cancelled. 09/26/2025 09/25/2025 7:5 0 AM PARI MUTUAL TICKET CHECKER Narrative Resulting Agency Comment Performing Organization Information: Site ID: JOON Name: [facility] Address: [address] [place] [phone] Director: Sathya Coronado MD us Shannon Cochran MD LAB BLOOD ORDERABLES Final Re sult Performing Organization Address [facility] de Phone Number [facility] [id number] [place] [phone] * Chloride (09/26/2025) Only the most recent of7 resultswithin the time period is included. Chloride OTH mmol/L [facility] Comment: TEST NOT PERFORMED. An electronic test request was transmitted, but no specimen was received by the laboratory. Test has been cancelled. 09/26/2025 09/25/2025 7:5 0 AM PARI MUTUAL TICKET CHECKER Narrative Resulting Agency Comment Performing Organization Information: Site ID: JOON Name: [facility] Address: [address] [place] [phone] Director: Sathya Coronado MD us Shannon Cochran MD LAB BLOOD ORDERABLES Final Re sult Performing Organization Address City/[facility] Co de Phone Number [facility] [id number] [place] [phone] * CO2 (09/26/2025) Only the most recent of7 resultswithin the time period is included. Bicarbonate (CO2) OTH mmol/L [facility] Comment: TEST NOT PERFORMED. An electronic test request was transmitted, but no specimen was received by the laboratory. Test has been cancelled. 09/26/2025 09/25/2025 7:5 0 AM PARI MUTUAL TICKET CHECKER Narrative Resulting Agency Comment Performing Organization Information: Site ID: JOON Name: [facility] Address: [address] [place] [phone] Director: Sathya Coronado MD Shannon Cochran MD LAB BLOOD ORDERABLES Final Re sult Performing Organization Address City/[facility]/ZIP Co de Phone Number [facility] [address] [place] [phone] * [facility] Results (09/21/2025) Only the most recent of4 resultswithin the time period is included. Pathologist [facility] WSTDKT/V 3.2 Knowledge Center spKt/V (Daugirdas II) 1.44 Knowledge Center eKt/V (Tattersall) 1.26 [facility] 09/21/2025 09/21/2025 [facility] [place] [place] LAB BLOOD ORDERABLES Final Result Performing Organization Address [facility] Co de Phone Number [facility] Contact Performing lab Unknown, [place] * [facility] BUN (09/21/2025) Only the most recent of3 resultswithin the time period is included. Pathologist [facility] BUN [facility] 10 7 - 25 mg/dL [facility] 09/21/2025 09/19/2025 4:1 1 PM PARI MUTUAL TICKET CHECKER Narrative Resulting Agency Comment Performing Organization Information: Site ID: JOON Name: [facility] Address: [address] [place] [phone] Director: Sathya Coronado MD Shannon Cochran MD LAB BLOOD ORDERABLES Final Re sult Performing Organization Address [facility] Co de Phone Number [facility] [phone] [place] [phone] * (ABNORMAL) BUN (09/21/2025) Only the most recent of3 resultswithin the time period is included. BUN 36(H) 7 - 25 mg/dL [facility] 09/21/2025 09/19/2025 4:1 1 PM PARI MUTUAL TICKET CHECKER Narrative Resulting Agency Comment Performing Organization Information: Site ID: JOON Name: [facility] Address: [address] [place] [phone] Director: Sathya Coronado MD Shannon Cochran MD LAB BLOOD ORDERABLES Final Re sult Performing Organization Address [facility] Co de Phone Number [facility] [address] [place] [phone] * (ABNORMAL) Iron and TIBC (09/12/2025) Only the most recent of2 resultswithin the time period is included. Iron, Total 68 50 - 180 mcg/dL [facility] TIBC 210(L) 250 - 425 mcg/dL (calc) [facility] Iron Saturation (TSat) 32 20 - 48 % (calc) [facility] 09/12/2025 09/11/2025 5:1 0 AM PARI MUTUAL TICKET CHECKER Narrative Resulting Agency Comment Performing Organization Information: Site ID: JOON Name: [facility] Address: [address] [place] [phone] Director: Sathya Coronado MD us Shannon Cochran MD LAB BLOOD ORDERABLES Final Re sult Performing Organization Address [facility] Co de Phone Number [facility] [place] [address] * (ABNORMAL) Differential with WBC (09/12/2025) Only [...] [facility] 09/12/2025 09/11/2025 5:1 0 AM PARI MUTUAL TICKET CHECKER Narrative Resulting Agency Comment Performing Organization Information: Site ID: JOON Name: [facility] Address: [address] [place] [phone] Director: Sathya Coronado MD Shannon Cochran MD LAB BLOOD ORDERABLES Final [facility] [address] [place] [phone] * (ABNORMAL) Platelet count (09/12/2025) Only the most recent of2 resultswithin the time period is included. Platelets 123(L) 140 - 400 Thousand/uL [facility] 09/12/2025 09/11/2025 5:1 0 AM PARI MUTUAL TICKET CHECKER Narrative Resulting Agency Comment Performing Organization Information: Site ID: JOON Name: [facility] Address: [address] [place] [phone] Director: Sathya Coronado MD Shannon Cochran MD LAB BLOOD ORDERABLES Final Re sult Performing Organization Address City/[facility]/ZIP Co de Phone Number [facility] [address] [phone] * (ABNORMAL) CBC (09/12/2025) Only the most [...] [facility] 09/12/2025 09/11/2025 5:1 0 AM PARI MUTUAL TICKET CHECKER Narrative Resulting Agency Comment Performing Organization Information: Site ID: [place] Name: [facility] Address: [address] [address] Director: Sathya Coronado MD Shannon Cochran MD LAB BLOOD ORDERABLES Final Re sult [facility] [address] [phone] * (ABNORMAL) Sodium (09/12/2025) Only the most recent of2 resultswithin the time period is included. Sodium 132(L) 135 - 146 mmol/L [facility] 09/12/2025 09/11/2025 5:1 0 AM PARI MUTUAL TICKET CHECKER Narrative Resulting Agency Comment Performing Organization Information: Site ID: JOON Name: [facility] Address: [address] [place] [phone] Director: Sathya Coronado MD us Shannon Cochran MD LAB BLOOD ORDERABLES Final Re sult Performing Organization Address [facility]/ZIP Co de Phone Number [facility] [address] [place] [phone] * (ABNORMAL) Protein, total (09/12/2025) Only the most recent of2 resultswithin the time period is included. Total Protein 5.8(L) 6.1 - 8.1 g/dL [facility] 09/12/2025 09/11/2025 5:1 0 AM PARI MUTUAL TICKET CHECKER Narrative Resulting Agency Comment Performing Organization Information: Site ID: JOON Name: [facility] Address: [address] [place] [phone] Director: Sathya Coronado MD us Shannon Cochran MD LAB BLOOD ORDERABLES Final Re sult Performing Organization Address [facility]/ZIP Co de Phone Number [facility] [address] [place] [phone] * (ABNORMAL) Potassium (09/12/2025) Only the most recent of2 resultswithin the time period is included. Potassium 5.5(H) 3.5 - 5.3 mmol/L [facility] 09/12/2025 09/11/2025 5:1 0 AM PARI MUTUAL TICKET CHECKER Narrative Resulting Agency Comment Performing Organization Information: Site ID: JOON Name: [facility] Address: [address] [place] [phone] Director: Sathya Coronado MD us Shannon Cochran MD LAB BLOOD ORDERABLES Final Re sult Performing Organization Address [facility] Co de Phone Number [facility] [id number] [place] [phone] * (ABNORMAL) Phosphorus (09/12/2025) Only the most recent of2 resultswithin the time period is included. Phosphorus 8.2(H) 3.0 - 4.5 mg/dL [facility] 09/12/2025 09/11/2025 5:1 0 AM PARI MUTUAL TICKET CHECKER Narrative Resulting Agency Comment Performing Organization Information: Site ID: JOON Name: [facility] Address: [address] [place] [phone] Director: Sathya Coronado MD us Shannon Cochran MD LAB BLOOD ORDERABLES Final Re sult Performing Organization Address [facility] Co de Phone Number [facility] [address] [place] [phone] * Alkaline phosphatase (09/12/2025) Alkaline Phosphatase 75 35 - 144 U/L [facility] 09/12/2025 09/11/2025 5:1 0 AM PARI MUTUAL TICKET CHECKER Narrative Resulting Agency Comment Performing Organization Information: Site ID: [place] Name: [facility] Address: [address] [place] [phone] Director: Sathya Coronado MD us Shannon Cochran MD LAB BLOOD ORDERABLES Final Re sult Performing Organization Address [facility] Co de Phone Number [facility] [address] [place] [phone] * (ABNORMAL) PTH, Intact (09/12/2025) Parathyroid Hormone, Intact 87(H) 16 - 77 pg/mL [facility] Comment: Interpretive Guide Intact PTH Calcium ------- Normal Parathyroid Normal Normal Hypoparathyroidism Low or Low Normal Low Hyperparathyroidism Primary Normal or High High Secondary High Normal or Low Tertiary High High Non-Parathyroid Hypercalcemia Low or Low Normal High 09/12/2025 09/11/2025 5:1 0 AM PARI MUTUAL TICKET CHECKER Narrative Resulting Agency Comment Performing Organization Information: Site ID: [place] Name: [facility] Address: [address] [place] [phone] Director: Sathya Coronado MD Shannon Cochran MD LAB BLOOD ORDERABLES Final Re sult Performing Organization Address [facility] Co de Phone Number [facility] [phone] * Magnesium (09/12/2025) Only the most recent of2 resultswithin the time period is included. Magnesium 2.5 1.6 - 2.5 mg/dL [facility] 09/12/2025 09/11/2025 5:1 0 AM PARI MUTUAL TICKET CHECKER Narrative Resulting Agency Comment Performing Organization Information: Site ID: [place] Name: [facility] Address: [address] [place] [phone] Director: Sathya Coronado MD Shannon Cochran MD LAB BLOOD ORDERABLES Final Re sult Performing Organization Address [facility] Co de Phone Number [facility] [address] [place] [phone] * (ABNORMAL) Glucose, random (09/12/2025) Only the most recent of2 resultswithin the time period is included. Glucose 146(H) 65 - 99 mg/dL [facility] Comment: For someone without known diabetes, a glucose value >125 mg/dL indicates that they may have diabetes and this should be confirmed with a follow-up test. 09/12/2025 09/11/2025 5:1 0 AM PARI MUTUAL TICKET CHECKER Narrative Resulting Agency Comment Performing Organization Information: Site ID: JOON Name: [facility] Address: [address] [place] [phone] Director: Sathya Coronado MD Shannon Cochran MD LAB BLOOD ORDERABLES Final Re sult Performing Organization Address City/[facility]/ZIP Co de Phone Number [facility] [address] [place] [phone] * (ABNORMAL) Ferritin (09/12/2025) Ferritin 654(H) 38 - 380 ng/mL [facility] 09/12/2025 09/11/2025 5:1 0 AM PARI MUTUAL TICKET CHECKER Narrative Resulting Agency Comment Performing Organization Information: Site ID: JOON Name: [facility] Address: [address] [place] [phone] Director: Sathya Coronado MD Shannon Cochran MD LAB BLOOD ORDERABLES Final Re sult Performing Organization Address [facility] Co de Phone Number [facility] [address] [place] [phone] * (ABNORMAL) Calcium (09/12/2025) Only the most recent of2 resultswithin the time period is included. Calcium 8.3(L) 8.6 - 10.0 mg/dL [facility] 09/12/2025 09/11/2025 5:1 0 AM PARI MUTUAL TICKET CHECKER Narrative Resulting Agency Comment Performing Organization Information: Site ID: JO[place] Name: [facility] Address: [address] [place] [phone] Director: Sathya Coronado MD us Shannon Cochran MD LAB BLOOD ORDERABLES Final Re sult Performing Organization Address [facility] de Phone Number [facility] [address] [place] [address] * Albumin (09/12/2025) Only the most recent of2 resultswithin the time period is included. Albumin 3.9 3.6 - 5.1 g/dL [facility] 09/12/2025 09/11/2025 5:1 0 AM PARI MUTUAL TICKET CHECKER Narrative Resulting Agency Comment Performing Organization Information: Site ID: [place] Name: [facility] Address: [address] [place] [phone] Director: Sathya Coronado MD us Shannon Cochran MD LAB BLOOD ORDERABLES Final Re sult Performing Organization Address [facility] de Phone Number [facility] [address] [place] [address] * (ABNORMAL) HEMATOLOGY (08/08/2025) Only the most recent of3 resultswithin the time period is included. Hemoglobin 10.5(L) 14.0 - 18.0 g/dL [facility] Hemoglobin x 3 31.5(L) 42.0 - 54.0 % [facility] 08/08/2025 08/09/2025 9:2 2 AM CDT Narrative [facility] - 08/09/2025 Unless otherwise specified, test(s) performed at: [facility], [address] [place] [address] APPRAISER ART: Dar Kang M.D. For any questions, please call customer service at FREQUENCY:OTHER Resulting Agency Comment Specimen source: Blood us Shannon Cochran MD LAB BLOOD ORDERABLES Final Re sult Performing Organization Address [facility] Co de Phone Number [facility] See order comments or contact performing lab Unknown, [place] * (ABNORMAL) [facility] (08/08/2025) Only the most recent of4 resultswithin the time period is included. Creatinine 5.64(H) 0.60 - 1.30 mg/dL [facility] Chloride 98 96 - 108 mEq/L [facility] Bicarbonate (CO2) 25 22 - 29 mEq/L [facility] Ferritin 493(H) 22 - 322 ng/mL [facility] 08/08/2025 08/09/2025 9:0 2 AM CDT Narrative [facility] - 08/09/2025 Unless otherwise specified, test(s) performed at: [facility], [address] [place] [address] APPRAISER ART: Dar Kang M.D. For any questions, please call customer service at FREQUENCY:OTHER Resulting Agency Comment Specimen source: Serum Shannon Cochran MD LAB BLOOD ORDERABLES Edited R esult - Final Performing Organization Address [facility] Co de Phone Number [facility] See order comments or contact performing lab Unknown, [place] * HD KINETICS (08/03/2025) % Urea Reduction 78 65 - 80 % [facility] 08/03/2025 08/04/2025 9:5 5 AM CDT Narrative Resulting Agency Comment Specimen source: Plasma Shannon Cochran MD LAB BLOOD ORDERABLES Final Re sult Performing Organization Address [facility] Co de Phone Number [facility] See order comments or contact performing lab Unknown, [place] * (ABNORMAL) POST CHEMISTRY (08/03/2025) BUN Post Dialysis 5(L) 6 - 19 mg/dL [facility] 08/03/2025 08/04/2025 9:5 5 AM CDT Narrative [facility] - 08/04/2025 Unless otherwise specified, test(s) performed at: [facility], [address] [place] [id number] APPRAISER ART: Dar Kang M.D. For any questions, please call customer service at FREQUENCY:OTHER Resulting Agency Comment Specimen source: Plasma us Shannon Cochran MD LAB BLOOD ORDERABLES Final Re sult [facility] See order comments or contact performing lab Unknown, [place] * (ABNORMAL) Hemoglobin A1c (12/15/2016 12:00 AM [employer] MUTUAL TICKET CHECKER) Hemoglobin A1C 8.6(H) 4.0 - 6.0 % SNA Comment per courtesy lab ms SNA 12/15/2016 us Riki Vogel MD LAB BLOOD ORDERABLES Fi nal Result SNA from Last 3 Months or Most Recently Relevant to Health Maintenance Insurance Medicaid [place] ([id number]) [facility] Medicare
--- OUTSIDE RECORDS SUMMARY | 2025-10-15 14:43 | XMS_ITS | Encounter Summary ---
Author Organization [place] [facility], [facility] Address [address] [address] [place] [address] Phone Care Team Providers Care Hospice Care Transitions Coordinator Name Role Phone Unavailable Primary Care Provider Unavailabl e Reason for Visit * Reason Comments Med Refill Encounter Details Date Type Department Care Team (Late st Contact Info) Description 09/26/2025 [facility] [address] [facility] [address] [place] [address] Beatrice Young NP [address] [facility] [employer] [facility] [address] [place] [address] Social History Tobacco Use Types [...]
--- OUTSIDE RECORDS SUMMARY | 2025-10-15 14:44 | XMS_ITS | Encounter Summary ---
Author Organization [place] [facility], [facility] Address [address] [place] [address] Phone Care Team Providers Care Painter Ordnance Name Role Phone Unavailable Primary Care Provider Unavailabl e Encounter Details Date Type Department Care Team (Late st Contact Info) Description 10/15/2025 TCM in Dialysis Clinic [facility], [facility] [address] [place] [address] Merlyn Smith NP [address] [place] [address] Social History Tobacco Use Types Packs/Day Years Used Date Smoking Tobacco: Former Cigarettes 0 Q uit: 10/11/2012 Sex and Gender Information Value Date Recorded Sex Assigned at Not on file Legal Sex Male 12:44 PM EST Gender Identity Not on file Sexual Orientation Not on file documented as of this encounter Progress Notes * Merlyn Smith NP - 10/15/2025 12:00 AM CST Patient: Abimael Cochran, 1970, 55y, M Dialysis Location: [facility] Attending Ethnoarchaeologist: Shannon Cochran Service Date: 10/15/2025 Service Provider: Merlyn Smith NP I met face to face with the patient today. INITIAL PATIENT CONTACT Contact with the patient or caregiver was made or attempted within 2 business days of discharge - details in the medical record HOSPITALIZATION SUMMARY Patient has transitioned in the past 30 days from: Hospital. Setting patient transitioned to: Home. Admission Date: 10/08/2025 Discharge Date: 10/10/2025 Discharge diagnosis: R55 Syncope and collapse J18.9 Pneumonia, unspecified organism Discharge information reviewed: No outstanding diagnostic tests and treatments DIAGNOSES Conditions addressed during visit: J18.9 Pneumonia, unspecified organism Comments: Pneumonia. Completed abx therapy. Continue to monitor. R55 Syncope and collapse Comments: Syncope- resolved. Continue to monitor MEDICATIONS Comments: No changes Discharge med list reviewed and reconciled - no changes. Active treatment medication orders reviewed - no changes. PHYSICAL EXAM Exam Performed. Vital Signs Reviewed. Lungs - Clear. CV - Blood pressure noted. CV - RRR. EXT - No edema. EXT - No ulcers. IMPRESSION & PLAN Comments: pnuemonia- completed antibiotic therapy. Monitor syncope- resolved. Continue to monitor ESRD- continue hd MWF Signed By: Merlyn Smith, HEADING AND PRIMING OPERATOR on 10/15/2025 9:44:05 AM documented in this encounter Plan of Treatment Not on file documented as of this encounter Visit Diagnoses Not on filedocumented in this encounter
--- OUTSIDE RECORDS SUMMARY | 2025-10-15 14:44 | XMS_ITS | Encounter Summary ---
Author Organization [facility] Address [address] [place] [address] Care Team Providers Care Noise Abatement Engineer Name Role Phone Osmani Contreras MD Primary Care Provider [phone] Encounter Details Date Type Department Care Team (Latest Contact Info) Description 09/16/2004 Outpatient [facility] [address] [facility] [address] [place] [address] Theodore Lugo MD [address] [place] [address] ABDOMINAL PAIN EPIGASTRIC (Primary Dx); HEARTBURN; REFLUX ESOPHAGITIS Social History Tobacco Use Types Packs/Day Years Used Date Smoking Tobacco: Never Assessed Sex and Gender Information Value Date Recorded Sex Assigned at Not on file Legal Sex Male 3:06 AM RN OSTOMY Gender Identity Not on file Sexual Orientation Not on file documented as of this encounter Plan of Treatment Not on file documented as of this encounter Visit Diagnoses Diagnosis Abdominal pain, epigastric- Primary Heartburn Reflux esophagitis documented in this encounter Additional Health Concerns Infection Onset Date Last Indicated Resolved Time C Diff Comment:Resolved 09/08/2018, Infection Prevention 03/11/16 () 03/25/2016 03/25/2016 8 7:46 AM RN OSTOMY documented as of this encounter Care Teams Noise Abatement Engineer Relationship Specialty Start Date End Date Osmani Contreras MD [address] [place] [address] PCP - General Family Practice 12/04/15 documented as of this encounter
--- OUTSIDE RECORDS SUMMARY | 2025-10-15 14:44 | XMS_ITS | Encounter Summary ---
Author Organization [place] [facility], [facility] Address [address] [place] [address] Phone Care Team Providers Care Health Insurance Adjuster Name Role Phone Unavailable Primary Care Provider Unavailabl e Encounter Details Date Type Department Care Team (Late st Contact Info) Description 10/15/2025 Treatment [facility], [facility] [address] [place] [address] Merlyn Smith NP [address] [place] [address] Pneumonia; Syncope and collapse; End stage renal [...] Dialysis Note - Merlyn Smith NP - 10/15/2025 12:00 AM CST Patient: Abimael Cochran, 1970, 55y, M Dialysis Location: [facility] Attending Automatic Furnace Operator: Shannon Cochran Service Date: 10/15/2025 Service Provider: [...] now but is still interested in HHD. HOME MEDICATIONS Comments: on Requip 0.25 mg. Increased to 0.5 mg 06/13/2025 LAST HOSPITALIZATION Discharge Diagnosis: R55 Syncope and collapse J18.9 Pneumonia, unspecified organism Admission Date 10/08/25 Discharge Date 10/10/25 DIALYSIS PRESCRIPTION IHD 3x Week Start date: 10/08/25 Dialyzer: FX CorAL 80 BFR: 500 DFR: Manual 800 Potassium: 2.0 Sodium: 137 EDW: 102.4 Duration: 4:00 Calcium: 2.5 Bicarb: 30 Rx updated on: 10/06/2025 TREATMENT ASSESSMENT Comments: Stable at goal. Blood pressure controlled. No changes indicated. BP Stand Pre 10/12/2025: 134/68 10/02/2025: 129/68 09/30/2025: 115/66 BP Sit Pre 10/12/2025: 155/85 10/02/2025: 167/77 09/30/2025: 132/74 BP Stand Post 10/12/2025: 162/82 10/02/2025: 105/57 09/30/2025: 124/71 BP Sit Post 10/12/2025: 171/83 10/02/2025: 141/75 09/30/2025: 140/71 Prescribed Tx time 10/12/2025: 4:00 10/02/2025: 4:00 09/30/2025: 4:00 Tx Duration 10/12/2025: 4:06 10/02/2025: 4:01 09/30/2025: 4:15 Missed Treatments 4 - last 30 days 6 - last 60 days 10/07 - recent FLUID ASSESSMENT Comments: Continue to challenge as tolerated Fluid status acceptable. Interdialytic weight gain acceptable. No changes indicated. EDW (kg) 10/12/2025: 102.4 10/02/2025: 102.4 09/30/2025: 102.4 Weight Pre (kg) 10/12/2025: 103.3 10/02/2025: 102.9 09/30/2025: 103.0 Weight Post (kg) 10/12/2025: 102.6 10/02/2025: 102.5 09/30/2025: 102.5 PWV (kg) 10/12/2025: 0.2 10/02/2025: 0.1 09/30/2025: 0.1 UF Rate (mL/kg/hr) 10/12/2025: 1.7 10/02/2025: 1 09/30/2025: 1.1 ADEQUACY ASSESSMENT Comments: Stable trend Adequacy target met. Prescription compliance acceptable. No changes indicated. spKt/V, URR 09/21/2025: 1.44, 72.2 09/12/2025: 1.18, 64.1 08/15/2025: 1.5, 72.5 ACCESS ASSESSMENT Access Type: AVFistula Access SubType: Standard Access Status: Active (In Use) - 07/11/2025 Access Location: Left Upper Arm Created: 12/28/2024 Flow 10/02/2025: ?199909/28/2025: 1979 Comments: For tunneled HD to be removed. Vascular access reviewed. Current access is permanent and functioning well. ANEMIA ASSESSMENT Comments: JAK and iron algorithms and therapies. HGB 10/12/2025: 11.0 10/02/2025: 11.4 09/19/2025: 10.1 Ferritin 09/12/2025: 654.0 08/08/2025: 493.0 06/13/2025: 422.0 Mircera, IVP (mcg) 09/24/2025: 60 09/12/2025: 60 08/27/2025: 75 Iron Sucrose (Venofer) (mg) 08/24/2025: 100 08/20/2025: 100 08/17/2025: 100 BMM ASSESSMENT Comments: PTH is low: not on calcitriol Phos is usually well controlled. PTH controlled. Phosphorus elevated. Referred to dietitian. PTH, Intact 09/12/2025: 87.0 06/13/2025: 95.0 05/16/2025: [...] - No edema. EXT - No ulcers. DIAGNOSIS Chief Complaint: N18.6 End stage renal disease Patient data updated 10/15/2025 at 9:44 AM Signed By: Merlyn Smith NP on 10/15/2025 9:45:44 AM documented in this encounter Plan of Treatment Not on file documented as of this encounter Visit Diagnoses Diagnosis Pneumonia Syncope and collapse End stage renal disease Dependence on renal dialysis documented in this encounter
--- OUTSIDE RECORDS SUMMARY | 2025-10-15 14:44 | XMS_ITS | Encounter Summary ---
Author Organization [facility] Address [address] [place] [address] Care Team Providers Care Dietary Aide Name Role Phone Osmani Contreras MD Primary Care Provider [phone] Encounter Details Date Type Department Care Team (Latest Contact Info) Description 07/24/2004 [facility]patient [facility] [address] [place] [phone] Sarwat Naidu MD [address] [place] [phone] HYPERTENSION NOS (Primary Dx) Social History Tobacco Use Types Packs/Day Years Used Date Smoking Tobacco: Never Assessed Sex and Gender Information Value Date Recorded Sex Assigned at Not on file Legal Sex Male 3:06 AM LABOR DELIVERY RN Gender Identity Not on file Sexual Orientation Not on file documented as of this encounter Plan of Treatment Not on file documented as of this encounter Visit Diagnoses Diagnosis Unspecified essential hypertension- Primary documented in this encounter Additional Health Concerns Infection Onset Date Last Indicated Resolved Time C Diff Comment:Resolved 09/08/2018, Infection Prevention 03/11/16 ([facility]) 03/25/2016 03/25/2016 8 7:46 AM LABOR DELIVERY RN documented as of this encounter Care Teams Dietary Aide Relationship Specialty Start Date End Date Osmani Contreras MD [address] [place] [address] PCP - General Family Practice 12/04/15 documented as of this encounter
--- OUTSIDE RECORDS SUMMARY | 2025-10-15 14:44 | XMS_ITS | Encounter Summary ---
Author Organization [facility], [facility] Address [address] [place] [address] Phone Care Team Providers Care Observer Electrical Prospecting Name Role Phone Unavailable Primary Care Provider Unavailabl e Reason for Visit * Reason Comments Med Refill Encounter Details Date Type Department Care Team (Late st Contact Info) Description 07/17/2024 Refill [facility], [facility] [address] [place] [address] Shannon Cochran MD [address] [place] [address] Social History Tobacco Use Types [...] Urea Reduction 69 65 - 80 % [facility] 08/16/2024 08/18/2024 9:1 6 AM INSPECTION MACHINE TENDER Narrative Resulting Agency Comment Specimen source: Plasma Shannon Cochran MD LAB BLOOD ORDERABLES Final Re sult [email or web address] See order comments or contact performing lab Unknown, [place] * POST CHEMISTRY (08/16/2024) BUN Post Dialysis 10 6 - 19 mg/dL [facility] 08/16/2024 08/18/2024 9:1 6 AM INSPECTION MACHINE TENDER Narrative [facility] - 08/18/2024 Unless otherwise specified, test(s) performed at: [facility], [address] [place] [address] IT INFRASTRUCTURE SPECIALIST: Dar Kang M.D. For any questions, please call customer service at FREQUENCY:MONTHLY Resulting Agency Comment Specimen source: Plasma us Shannon Cochran MD LAB BLOOD ORDERABLES Final Re sult [facility] See order comments or contact performing lab Unknown, [place] * IMMUNO CHEMISTRY (08/16/2024) Pathologist [facility] Hep B Surface Ag Negative Negative [facility] 08/16/2024 08/17/2024 1:3 9 PM INSPECTION MACHINE TENDER Narrative Resulting Agency Comment Specimen source: Serum us Shannon Cochran MD LAB BLOOD ORDERABLES Final Re sult Performing Organization Address [facility] Co de Phone Number [facility] See order comments or contact performing lab Unknown, [place] * (ABNORMAL) [facility] Chemistry (08/16/2024) Pathologist [facility] BUN 32(H) 6 - 19 mg/dL [facility] [...] [facility] 08/16/2024 08/17/2024 1:3 9 PM INSPECTION MACHINE TENDER Narrative [facility] - 08/17/2024 Unless otherwise specified, test(s) performed at: [facility], [address] [place] [address] IT INFRASTRUCTURE SPECIALIST: Dar Kang M.D. For any questions, please call customer service at FREQUENCY:MONTHLY Resulting Agency Comment Specimen source: Serum us Shannon Cochran MD LAB BLOOD ORDERABLES Final Re sult [facility] See order comments or contact performing [...] [facility] 08/16/2024 08/17/2024 1:4 4 PM INSPECTION MACHINE TENDER Narrative [facility] - 08/17/2024 Unless otherwise specified, test(s) performed at: [facility], [address] [place] [address] IT INFRASTRUCTURE SPECIALIST: Dar Kang M.D. For any questions, please call customer service at FREQUENCY:MONTHLY Resulting Agency Comment Specimen source: Blood us Shannon Cochran MD LAB BLOOD ORDERABLES Final Re sult Performing Organization Address [facility] Co de Phone Number [facility] [...] 08/09/2024 Unless otherwise specified, test(s) performed at: [facility], [address] [place] [address] IT INFRASTRUCTURE SPECIALIST: Dar Kang M.D. For any questions, please call customer service at FREQUENCY:OTHER Resulting Agency Comment Specimen source: Serum us Shannon Cochran MD LAB BLOOD ORDERABLES Final Re sult Performing Organization Address [facility] Co de Phone Number [facility] See order comments or contact performing lab Unknown, [place] * (ABNORMAL) HEMATOLOGY (08/08/2024) Hemoglobin 9.4(L) 14.0 - 18.0 g/dL [facility] Hemoglobin x 3 28.2(L) 42.0 - 54.0 % [facility] 08/08/2024 08/09/2024 9:4 7 AM CDT Narrative [facility] - 08/09/2024 Unless otherwise specified, test(s) performed at: [facility] [address] IT INFRASTRUCTURE SPECIALIST: Dar Kang M.D. For any questions, please call customer service at FREQUENCY:OTHER Resulting Agency Comment Specimen source: Blood us Shannon Cochran MD LAB BLOOD ORDERABLES Final Re sult Performing Organization Address [facility] de Phone Number [facility] See order comments or contact performing lab Unknown, [place] * (ABNORMAL) HEMATOLOGY (08/02/2024) [facility] Hemoglobin 9.2(L) 14.0 - 18.0 g/dL [facility] Hemoglobin x 3 27.6(L) 42.0 - 54.0 % [facility] 08/02/2024 08/03/2024 11: 25 AM CDT Narrative [facility] - 08/03/2024 Unless otherwise specified, test(s) performed at: [facility] [id number] IT INFRASTRUCTURE SPECIALIST: Dar Kang M.D. For any questions, please call customer service at FREQUENCY:OTHER Resulting Agency Comment Specimen source: Blood Shannon Cochran MD LAB BLOOD ORDERABLES Final Re sult Performing Organization Address [facility] de Phone Number [facility] See order comments or contact performing lab Unknown, [place] * IMMUNO CHEMISTRY (08/02/2024) [facility] Hepatitis C Antibody Nonreactive Nonreactive [facility] Comment: No HCV antibody detected. The [...] Final Re sult Performing Organization Address [facility]/ZIP Co de Phone Number [facility] See order comments [...] 08/03/2024 Unless otherwise specified, test(s) performed at: [facility], [address] [place] [address] IT INFRASTRUCTURE SPECIALIST: Dar Kang M.D. For any questions, please call customer service at FREQUENCY:OTHER Resulting Agency Comment Specimen source: Serum us Shannon Cochran MD LAB BLOOD ORDERABLES Final Re sult Performing Organization Address [facility] Co de Phone Number [facility] See order [...] 07/31/2024 08/01/2024 10: 11 AM CDT Narrative [facility] - 08/01/2024 Unless otherwise specified, test(s) performed at: [facility], [address] [place], [place] [id number] IT INFRASTRUCTURE SPECIALIST: Dar Kang M.D. For any questions, please call customer service at FREQUENCY:OTHER Resulting Agency Comment Specimen source: Urine Shannon Cochran MD LAB URINE ORDERABLES Final Re sult Performing Organization Address [facility] Co de Phone Number [facility] See order comments or contact performing lab Unknown, [place] * (ABNORMAL) [facility] Chemistry (07/31/2024) BUN 24(H) 6 [...] 07/31/2024 08/01/2024 9:2 0 AM CDT Narrative [facility] - 08/01/2024 Unless otherwise specified, test(s) performed at: [facility], [address] [place] [address] IT INFRASTRUCTURE SPECIALIST: Dar Kang M.D. For any questions, please call customer service at FREQUENCY:OTHER Resulting Agency Comment Specimen source: Serum us Shannon Cochran MD LAB BLOOD ORDERABLES Final Re sult Performing Organization Address City/[facility]/ZIP Co de Phone Number [facility] See order comments or contact performing lab Unknown, [place] * (ABNORMAL) [facility] Chemistry (07/31/2024) [facility] PTH 391(H) 16 - 80 pg/mL [facility] 07/31/2024 08/01/2024 10: 24 AM CDT Narrative [facility] - 08/01/2024 Unless otherwise specified, test(s) performed at: [facility], [address] [place] [address] IT INFRASTRUCTURE SPECIALIST: Dar Kang M.D. For any questions, please call customer service at FREQUENCY:OTHER Resulting Agency Comment Specimen source: Plasma us Shannon Cochran MD LAB BLOOD ORDERABLES Final Re sult Performing Organization Address [facility] Co de Phone Number [facility] See order comments or contact performing lab Unknown, [place] * PATIENT INFORMATION (07/31/2024) [facility] Patient BSA 2.65 sq. M. [facility] Comment: Normalized values are calculated using the patient's actual BSA and normalized to the average BSA of 1.73m2. 07/31/2024 08/01/2024 9:2 0 AM CDT Narrative [facility] - 08/01/2024 Unless otherwise specified, test(s) performed at: [facility] [address] IT INFRASTRUCTURE SPECIALIST: Dar Kang M.D. For any questions, please call customer service at FREQUENCY:OTHER Resulting Agency Comment Specimen source: PD Fluid us Shannon Cochran MD LAB BLOOD ORDERABLES Final Re sult Performing Organization Address City/[facility]/ZIP Co de Phone Number [facility] See order comments or contact performing lab Unknown, [place] * PATIENT INFORMATION (07/31/2024) [facility] Patient Weight 127.3 [facility] Patient Height 203.0 [facility] Amputee Status NO [facility] Amputee Parts NONE [facility] Urine Volume 1,700 [facility] Collection Interval, Ur 24.0 [facility] 07/31/2024 07/31/2024 Narrative [facility]PS [facility] - 08/01/2024 Unless otherwise specified, test(s) performed at: [facility], [address] [place] [address] IT INFRASTRUCTURE SPECIALIST: Dar Kang M.D. For any questions, please call customer service at FREQUENCY:OTHER Resulting Agency Comment Specimen source: PD Fluid Shannon Cochran MD LAB BLOOD ORDERABLES Final Re sult [facility] See order comments or contact performing lab Unknown, [place] * (ABNORMAL) HEMATOLOGY (07/26/2024) Pathologist [facility] Hemoglobin 9.6(L) 14.0 - 18.0 g/dL [facility] Hemoglobin x 3 28.8(L) 42.0 - 54.0 % [facility] Reticulocyte Hemoglobin 32.8(H) 25.4 - 31.8 pg [facility] 07/26/2024 07/27/2024 1:0 8 PM CDT Narrative [facility] - 07/27/2024 Unless otherwise specified, test(s) performed at: [facility], [address] [place] [address] IT INFRASTRUCTURE SPECIALIST: Dar Kang M.D. For any questions, [...] 07/26/2024 07/27/2024 8:5 6 AM CDT Narrative [facility] - 07/27/2024 Unless otherwise specified, test(s) performed at: [facility], [address] [place] [address] IT INFRASTRUCTURE SPECIALIST: Dar Kang M.D. For any questions, please call customer service at FREQUENCY:OTHER Resulting Agency Comment Specimen source: Serum us Shannon Cochran MD LAB BLOOD ORDERABLES Final Re sult [facility] See order comments or contact performing lab Unknown, [place] * (ABNORMAL) [facility] Chemistry (07/19/2024) BUN 29(H) 6 [...] 07/19/2024 07/20/2024 10: 58 AM CDT Narrative [facility] - 07/20/2024 Unless otherwise specified, test(s) performed at: [facility] [address] IT INFRASTRUCTURE SPECIALIST: Dar Kang M.D. For any questions, please call customer service at FREQUENCY:MONTHLY Resulting Agency Comment Specimen source: Serum Shannon Cochran MD LAB BLOOD ORDERABLES Final Re sult Performing Organization Address [facility] de Phone Number [facility] See order comments or contact performing lab Unknown, [place] * TRACE ELEMENTS (07/19/2024) Pathologist [facility] Aluminum <5 0 - 10 mcg/L [facility] Comment: This test was developed and its performance characteristics determined by [facility]. It has not been cleared or approved by the FDA. The laboratory is regulated under CLIA as qualified to perform high complexity testing. This test is used for clinical purposes. It should not be regarded as investigational or for research. 07/19/2024 07/20/2024 10: 49 AM CDT Narrative [facility] - 07/20/2024 Unless otherwise specified, test(s) performed at: [facility], [address] [place] [address] IT INFRASTRUCTURE SPECIALIST: Dar Kang M.D. For any questions, please call customer service at FREQUENCY:MONTHLY Resulting Agency Comment Specimen source: Serum Shannon Cochran MD LAB BLOOD ORDERABLES Final Re [facility] Performing Organization Address [facility] de Phone Number [facility] See order comments or contact performing lab Unknown, [place] * (ABNORMAL) HEMATOLOGY (07/19/2024) Pathologist [facility] Neutrophils 78.3(H) 40.0 - 75.0 % [facility] [...] 07/19/2024 07/20/2024 11: 32 AM CDT Narrative [facility] - 07/20/2024 Unless otherwise specified, test(s) performed at: [facility], [address] [place] [address] IT INFRASTRUCTURE SPECIALIST: Dar Kang M.D. For any questions, please call customer service at FREQUENCY:MONTHLY Resulting Agency Comment Specimen source: Blood us Shannon Cochran MD LAB BLOOD ORDERABLES Final Re sult [facility] See order comments or contact performing lab [facility], [place] * IMMUNO CHEMISTRY (07/17/2024) Hepatitis B Surface Ab <10 mIU/mL [facility] Comment: Reference Range: <10 mIU/mL Non-Immune >=10 mIU/mL Immune The magnitude of the measured result above 10 mIU/mL is not indicative of the total amount of antibody present. Custom Exception Hep B Core Total Ab Negative Negative [facility] Comment: Hep B Core Ab, Total appears during the acute infection stage and remains reactive/positive throughout the recovery stage. The above test result was obtained using Siemens Centaur XP chemiluminescent method. Results obtained with different assay methods or kits cannot be used interchangeably. Hep B Surface Ag Negative Negative [facility] 07/17/2024 07/18/2024 11: 19 AM CDT Narrative [facility] - 07/18/2024 Unless otherwise specified, test(s) performed at: [facility], [address] [place] [address] IT INFRASTRUCTURE SPECIALIST: Dar Kang M.D. For any questions, please call customer service at FREQUENCY:OTHER Resulting Agency Comment Specimen source: Serum us Shannon Cochran MD LAB BLOOD ORDERABLES Edited R esult - Final APS [facility] See order comments or contact performing lab Unknown, [place] documented in this encounter Visit Diagnoses Not on filedocumented in this encounter
--- OUTSIDE RECORDS SUMMARY | 2025-10-15 14:44 | XMS_ITS | Encounter Summary ---
Author Organization [facility], [facility] Address [address] [place] [address] Phone Care Team Providers Care C++ Quant Developer Name Role Phone Unavailable Primary Care Provider Unavailabl e Encounter Details Date Type Department Care Team (Late st Contact Info) Description 10/12/2025 Orders Only [facility] [address] [place] [address] Shannon Cochran MD [address] [place] [address] Social History Tobacco Use Types [...] Date/Time Associated Diagnosis Comments HEMOGLOBIN Routine 10/12/2025 documented in this encounter Results * (ABNORMAL) Hemoglobin (10/12/2025) Hemoglobin 11.0(L) 13.2 - 14.0 g/dL [facility] 10/12/2025 10/12/2025 4:4 0 PM JALOUSIES INSTALLER Narrative Resulting Agency Comment Performing Organization Information: Site ID: [place] Name: [facility] Address: [address] [id number] Director: Sathya Coronado MD us Shannon Cochran MD LAB BLOOD ORDERABLES Final Re sult [facility] [address] [id number] documented in this encounter Visit Diagnoses Not on filedocumented in this encounter
--- OUTSIDE RECORDS SUMMARY | 2025-10-15 14:44 | XMS_ITS | Encounter Summary ---
Author Organization [facility] Address [address] [place] [address] Care Team Providers Care Poultry Farm Supervisor Name Role Phone Osmani Contreras MD Primary Care Provider [phone] Encounter Details Date Type Department Care Team (Latest Contact Info) Description 08/20/1999 Outpatient Historical [facility] Bharathi Walker MD [address] [place] [address] Hernia of unspecified site of abdominal cavity without mention of obstruction or gangrene (Primary Dx) Social History Tobacco Use Types Packs/Day Years Used Date Smoking Tobacco: Never Assessed Sex and Gender Information Value Date Recorded Sex Assigned at Not on file Legal Sex Male 3:06 AM BLIND ESCORT Gender Identity Not on file Sexual Orientation [...] Diff Comment:Resolved 09/08/2018, Infection Prevention 03/11/16 ([facility]) 03/25/2016 03/25/2016 8 7:46 AM BLIND ESCORT documented as of this encounter Care Teams Poultry Farm Supervisor Relationship Specialty Start Date End Date Osmani Contreras MD [address] [place] [address] PCP - General Family Practice 12/04/15 documented as of this encounter
--- OUTSIDE RECORDS SUMMARY | 2025-10-15 14:44 | XMS_ITS | Encounter Summary ---
Author Organization [facility] Address [address] [place] [address] Care Team Providers Care Funeral Pre Arrangement Specialist Name Role Phone Osmani Contreras MD Primary Care Provider Encounter Details Date Type Department Care Team (Late st Contact Info) Description 07/08/2004 Outpatient Historical [facility] [address] [place] [phone] Ger Fabian MD [address] [place] [address] Social History Tobacco Use Types Packs/Day Years Used Date Smoking Tobacco: Never Assessed Sex and Gender Information Value Date Recorded Sex Assigned at Not on file Legal Sex Male 3:06 AM ASSIGNMENT MANAGER Gender Identity Not on file Sexual Orientation Not on file documented as of this encounter Plan of Treatment Not on file documented as of this encounter Visit Diagnoses Not on filedocumented in this encounter Additional Health Concerns Infection Onset Date Last Indicated Resolved Time C Diff Comment:Resolved 09/08/2018, Infection Prevention 03/11/[address]) 03/25/2016 03/25/2016 8 7:46 AM ASSIGNMENT MANAGER documented as of this encounter Care Teams Funeral Pre Arrangement Specialist Relationship Specialty Start Date End Date Osmani Contreras MD [address] [place] [address] PCP - General Family Practice 12/04/15 documented as of this encounter
--- OUTSIDE RECORDS SUMMARY | 2025-10-15 14:44 | XMS_ITS | Encounter Summary ---
Author Organization [facility] Address [address] [place] [address] Care Team Providers Care Anatomical Embalmer Name Role Phone Osmani Contreras MD Primary Care Provider [phone] Encounter Details Date Type Department Care Team (Latest Contact Info) Description 07/25/2004 Outpatient Historical [facility] [address] [place] [phone] Sarwat Naidu MD [address] [place] [phone] HYPERTENSION NOS (Primary Dx) Social History Tobacco Use Types Packs/Day Years Used Date Smoking Tobacco: Never Assessed Sex and Gender Information Value Date Recorded Sex Assigned at Not on file Legal Sex Male 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) 03/25/2016 03/25/2016 8 7:46 AM MEDICAL RECORD LIBRARIANS TEACHER documented as of this encounter Care Teams Anatomical Embalmer Relationship Specialty Start Date End Date Osmani Contreras MD [address] [place] [address] PCP - General Family Practice 12/04/15 documented as of this encounter
--- OUTSIDE RECORDS SUMMARY | 2025-10-15 14:44 | XMS_ITS | Encounter Summary ---
Author Organization [facility] Address [address] [place] [address] Care Team Providers Care Set Up Mechanic Automatic Line Name Role Phone Osmani Contreras MD Primary Care Provider [phone] Encounter Details Date Type Department Care Team (Latest Contact Info) Description 08/15/2004 Outpatient Historical [facility] [address] [place] [phone] Sarwat Naidu MD [address] [place] [phone] HYPERTENSION NOS (Primary Dx) Social History Tobacco Use Types Packs/Day Years Used Date Smoking Tobacco: Never Assessed Sex and Gender Information Value Date Recorded Sex Assigned at Not on file 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 Sex Male 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 Gender Identity Not on file Sexual Orientation Not on file documented as of this encounter Plan of Treatment Not on file documented as of this encounter Visit Diagnoses Diagnosis Unspecified essential hypertension- Primary documented in this encounter Additional Health Concerns Infection Onset Date Last Indicated Resolved Time C Diff Comment:Resolved 09/08/2018, Infection Prevention 03/11/16 ([facility]) 03/25/2016 03/25/2016 8 7:46 AM HEAD ANIMAL KEEPER documented as of this encounter Care Teams Set Up Mechanic Automatic Line Relationship Specialty Start Date End Date Osmani Contreras MD [address] [place] [address] PCP - General Family Practice 12/04/15 documented as of this encounter
--- OUTSIDE RECORDS SUMMARY | 2025-10-15 14:44 | XMS_ITS | Clinical Summary ---
Author Organization [facility] Address [address] Attn: [place] [address] Care Team Providers Care Cab Station Attendant Name Role Phone Osmani Contreras MD [...] Spasm. 30 Tablet 0 6 Active OTHER GEOSPATIAL IMAGERY INTELLIGENCE ANALYST/GRABBER. 1 Each 0 6 Active albuterol sulfate [...] 2 Active fluticasone propionate (FLONASE) 50 mcg/spray [place], Suspension nasal inhaler 2 Active aspirin (ECOTRIN EC) 81 mg Tablet, Delayed Release (E.C.) Take 81 mg by mouth daily. Active Alpha Lipoic Acid 200 mg Tablet Take 1 Tablet by mouth 2 times daily. 4 Active busPIRone (BUSPAR) 10 mg tablet Take 1 Tablet by mouth 2 times daily. 4 Active Orxhaiue-CBL-7 0.1 mg/24 hr patch Apply 1 Patch [...] mg tabletIndicati ons:ESRD (end stage renal disease) (CMS/[facility]) Take 1 Tablet by mouth every [...] (02/06/2021): Added automatically from request for surgery [id number] Chronic left-sided low back pain without sciatic [...] Description 08/09/2025 12:50 PM CDT Office Visit [facility] [place] [address] [place] [address] Carol Morales MD Type 2 diabetes mellitus [...] on file Legal Sex Male 7:30 AM SCRAP WHEELER Gender Identity Not on file Sexual Orientation [...] st Contact Info) Description 08/15/2026 11:00 AM SCRAP WHEELER Office Visit [facility] [place] [address] [place] [address] Carol Morales MD [address] [place] [address] Health Maintenance Due Date Last [...] Completed 03/22/2016 Medical Devices Implanted Type Area Scrap Wheeler Device Identifier Shelf Expiration Date Model / Serial / Lot Clip Ligating [facility] Med Ti [id number] - [facility] [place] - [id number] Implanted:Qty: 1 on 12/28/2024 by Francoise Kinney MD at [facility] Clip Left: Arm TELEFLEX- WECK CLOSURE SYS [id number] 07/18/2029 [id number] / / [id number] Clip Ligating Horizon Red 729350 - Csc - [id number] Implanted:Qty: 1 on 12/28/2024 by Francoise Kinney MD at [facility] Clip Left: Arm [employer] INC [id number] 09/02/2029 [id number] / / [id number] Coil Emb María .035 6mm 14cm Micro Pltnm [id number] - [id number] Implanted:Qty: 1 on 05/10/2025 by Sanjeev Espinosa MD at [facility] Coil Left: Vein COOK- INTERVENTIONAL RAD [id number] 02/22/2030 [id number] / / [id number] Coil Emb María .035 6mm 14cm Micro Pltnm [id number] - [id number] Implanted:Qty: 1 on 05/10/2025 by Sanjeev Espinosa MD at [facility] Coil Left: Vein COOK- INTERVENTIONAL RAD [id number] 02/12/2030 [id number] / / [id number] Coil Interlock-35 360 [id number] - [id number] Implanted:Qty: 1 on 05/10/2025 by Sanjeev Espinosa MD at [facility] Coil Left: Vein [employer]- NEUROVASC [id number] 04/14/2027 [id number] / / [id number] Coil Emb María .035 6mm 14cm Micro Pltnm [id number] - [id number] Implanted:Qty: 1 on 05/10/2025 by Sanjeev Espinosa MD at [facility] Coil Left: Vein COOK- INTERVENTIONAL RAD [id number] 02/12/2030 [id number] / / [id number] Coil Emb María .035 6mm 14cm Micro Pltnm [id number] - [id number] Implanted:Qty: 1 on 05/10/2025 by Sanjeev Espinosa MD at [facility] Coil Left: Vein COOK- INTERVENTIONAL RAD [id number] 02/12/2030 [id number] / / [id number] Coil Emb María .035 6mm 14cm Micro Pltnm [id number] - [id number] Implanted:Qty: 1 on 05/10/2025 by Sanjeev Espinosa MD at [facility] Coil Left: Vein COOK- INTERVENTIONAL RAD [id number] 02/12/2030 [id number] / / [id number] Coil Emb María .035 6mm 14cm Micro Pltnm [id number] - [id number] Implanted:Qty: 1 on 05/10/2025 by Sanjeev Espinosa MD at [facility] Coil Left: Vein COOK- INTERVENTIONAL RAD [id number] 02/12/2030 [id number] / / [id number] Coil Emb María .035 6mm 14cm Micro Pltnm [id number] - [id number] Implanted:Qty: 1 on 05/10/2025 by Sanjeev Espinosa MD at [facility] Coil Left: Vein COOK- INTERVENTIONAL RAD [id number] 02/22/2030 [id number] / / [id number] Screw Hex Int Rc Bl 6.4x110 [id number] - [id number] Implanted:Qty: 1 on 03/30/2019 by Colt Garza MD Screw Right: Femur FOWLER NEPHEW ORTHO 07/30/2025 [id number] / / [id number] Screw Hex Int Rc Bl 6.4x115 [id number] - [id number] Implanted:Qty: 1 on 03/30/2019 by Colt Garza MD Screw Right: Femur FOWLER NEPHEW ORTHO 01/08/2022 [id number] / / [id number] Screw Trgn Lp 5.0x50mm [id number] - [id number] Implanted:Qty: 1 on 03/30/2019 by Colt Garza MD Screw Right: Femur FOWLER NEPHEW ORTHO 02/11/2029 [id number] / / [id number] Screw Trgn Lp 5.0x60mm 9192-5700 - [id number] Implanted:Qty: 1 on 03/30/2019 by Colt Garza MD Screw Right: Femur FOWLER NEPHEW ORTHO 10/11/2026 [id number] / / [id number] Nail Implanted:Qty: 1 on 03/30/2019 by Colt Garza MD Right: Femur FOWLER NEPHEW ORTHO 08/10/2020 [id number] / / [id number] Explanted Type Area Scrap Wheeler Device Identifier Shelf Expiration Date Model / Serial / Lot Nail Fan Jud Rt [id number] - [id number] Implanted:Qty: 1 on 09/07/2018 by Colt Garza MD Explanted:Qty: 1 on 03/30/2019 by Colt Garza MD Nail Right: Femur FOWLER NEPHEW ORTHO 10/04/2025 [id number] / / [id number] Description:INV Screw Hex Int Rc Bl 6.4x110 [id number] - [id number] Implanted:Qty: 1 on 09/07/2018 by Colt Garza MD Explanted:Qty: 1 on 03/30/2019 by Colt Garza MD Screw Right: Femur FOWLER NEPHEW ORTHO 05/19/2027 [id number] / / [id number] Description:INV Screw Hex Int Rc Bl 6.4x115 [id number] - [id number] Implanted:Qty: 1 on 09/07/2018 by Colt Garza MD Explanted:Qty: 1 on 03/30/2019 by Colt Garza MD Screw Right: Femur FOWLER NEPHEW ORTHO 12/08/2019 [id number] / / [id number] Description:INV Screw Trgn Lp 5.0x47.5mm [id number] - [id number] Implanted:Qty: 1 on 09/07/2018 by Colt Garza MD Explanted:Qty: 1 on 03/30/2019 by Colt Garza MD Screw Right: Femur FOWLER NEPHEW ORTHO 02/03/2028 [id number] / / [id number] Description:INV Screw Trgn Lp 5.0x52.5mm 9214-5514 - [id number] Implanted:Qty: 1 on 09/07/2018 by Colt Garza MD Explanted:Qty: 1 on 03/30/2019 by Clot Garza MD Screw Right: Femur FOWLER NEPHEW ORTHO 03/13/2028 [id number] / / [id number] Description:INV Procedures Procedure Name Priority Date/Time Associated Diagnosis Comments OCT, RETINA - OU - BOTH EYES Routine 08/09/2025 12:51 PM CDT Type 2 diabetes mellitus with both eyes affected by mild nonproliferative retinopathy without macular edema, with long-term current use of insulin ([facility]) EYE DROPS Routine 08/09/2025 12:36 PM CDT Type 2 diabetes mellitus with both eyes affected by mild nonproliferative retinopathy without macular edema, with long-term current use of insulin ([facility]) HEMOGLOBIN A1C Routine 03/31/2019 10:[address] ABDOMEN PELVIS WO CONTRAST IP Routine 03/22/2016 10:33 PM CDT from Last 3 Months or Most Recently Relevant to Health Maintenance Results * OCT, RETINA - OU - BOTH EYES (08/09/2025 12:51 PM CDT) Narrative [facility] [place] - 08/09/2025 1:38 PM CDT Optical coherence tomography ordered to evaluate the status of the macula: Right Eye: trace diabetic macular edema at the nasal fovea, improving from previous. Left Eye: normal foveal contour us Carol Morales MD OPHTH TOMOGRAPHY Final Re sult [facility] [place] * EYE DROPS (08/09/2025 12:36 PM CDT) Narrative [facility] OPHTHAL[facility]-[place] - 08/09/2025 1:38 PM CDT Medications Eye Drops: 1 Drop phenylephrine 2.5 % Route: Topical NDC: 27225-982-06, Lot: [id number], Expiration date: 10/11/2025 1 Drop proparacaine 0.5 % Route: Topical NDC: 87602-015-04, Lot: [id number], Expiration date: 11/11/2026 1 Drop tropicamide 1 % Route: Topical NDC: 16046-527-82, Lot: [id number], Expiration date: 05/11/2026 Notes Eye drop orders per protocol for Basic Oracle Database Developer Eye Exam (Dilated) 1 Drop proparacaine (OPHTHAINE) 0.5% ophthalmic solution prior to tonometry 1 Drop tropicamide (MYDRIACYL) 1% ophthalmic solution 1 Drop phenylephrine (AK-DILATE, MYDFRIN) 2.5% ophthalmic solution us Carol Morales MD OPH CLINIC PROCEDURES F inal Result Performing Organization Address City/[facility]/ZIP Co de Phone Number [facility] CL[facility]# [id number] [address] [place] [address] * (ABNORMAL) HEMOGLOBIN A1C (03/31/2019 10:06 AM CDT) HEMOGLOBIN A1C 11.4(H) See comment % 03/31/2019 12:05 PM CDT [facility] [employer] [facility] EST. AVG GLUCOSE, A1C 280 mg/dL 03/31/2019 12:05 PM T [facility] Blood BLOOD SPECIMEN / Unknown Venipuncture / Unknown 03/31/2019 10:06 AM CDT 03/31/2019 10:33 AM CDT Narrative [facility] [employer] [facility] - 03/31/2019 12:05 PM CDT HGB A1C INTERPRETATION NORMAL: <5.7% PRE-DIABETES: 5.7 - 6.4% DIABETES: 6.5% OR GREATER us Priya Tomas MD CHEMISTRY ORDERAB LES Final Result Performing Organization Address City/[facility]/ZIP Co de Phone Number [facility] CLIA# [id number] [address] [place] [address] [facility] [employer] [facility] CLIA# [id number] [address] [place] [address] * CT ABDOMEN PELVIS WO CONTRAST (03/22/2016 [...] Most Recently Relevant to Health Maintenance Insurance [facility] DUAL COMPLETE HMO [facility] [id number] MEDICAID [place] * Guarantor: ABIMAEL SAHU Account Type Relation to Patient Date of Phone Billing Address Personal/Family [address] [place] [address] [facility] Medicare Part D Advance Directives For more information, please contact: [phone] * Full Code (Latest Code Status on File) Date Activated Date Inactivated Comments 12/28/2024 5:56 AM 12/28/2024 12:08 PM Care Teams Cab Station Attendant Relationship Specialty Start Date End Date Osmani Contreras MD [address] [place] [address] PCP - General Family Practice 12/04/15
--- OUTSIDE RECORDS SUMMARY | 2025-10-15 14:44 | XMS_ITS | Encounter Summary ---
Author Organization [facility] Address [address] [place] [address] Care Team Providers Care Apprentice Machinist Outside Name Role Phone Osmani Contreras MD Primary Care Provider [phone] Encounter Details Date Type Department Care Team (Latest Contact Info) Description 08/04/1999 Outpatient Historical [facility] Bharathi Walker MD [address] [place] [address] Abdominal pain, right upper quadrant (Primary Dx); Abdominal pain, epigastric Social History Tobacco Use Types Packs/Day Years Used Date Smoking Tobacco: Never Assessed Sex and Gender Information Value Date Recorded Sex Assigned at Not on file Legal Sex Male 3:06 AM DIRECTOR OF ASSESSING Gender Identity Not on file Sexual Orientation [...] [facility]) 03/25/2016 03/25/2016 8 7:46 AM DIRECTOR OF ASSESSING documented as of this encounter Care Teams Apprentice Machinist Outside Relationship Specialty Start Date End Date Osmani Contreras MD [address] [place] [address] PCP - General Family Practice 12/04/15 documented as of this encounter
--- OUTSIDE RECORDS SUMMARY | 2025-10-15 14:44 | XMS_ITS | Encounter Summary ---
Author Organization [facility] Address [address] [place] [address] Care Team Providers Care Director Financial Analysis Name Role Phone Osmani Contreras MD Primary Care Provider [phone] Encounter Details Date Type Department Care Team ([facility] st Contact Info) Description 07/25/[address] [facility] [address] [place] [phone] Sarwat Naidu MD [address] [place] [address] Social History Tobacco Use Types Packs/Day Years Used Date Smoking Tobacco: Never Assessed Sex and Gender Information Value Date Recorded Sex Assigned at Not on file Legal Sex Male 3:06 AM CUT FILER Gender Identity Not on file Sexual Orientation Not on file documented as of this encounter Plan of Treatment Not on file documented as of this encounter Visit Diagnoses Not on filedocumented in this encounter Additional Health Concerns Infection Onset Date Last Indicated Resolved Time C Diff Comment:Resolved 09/08/2018, Infection Prevention 03/11/16 ([facility]) 03/25/2016 03/25/2016 8 7:46 AM CUT FILER documented as of this encounter Care Teams Director Financial Analysis Relationship Specialty Start Date End Date Osmani Contreras MD [address] [place] [address] PCP - General Family Practice 12/04/15 documented as of this encounter
--- OUTSIDE RECORDS SUMMARY | 2025-10-15 14:44 | XMS_ITS | Encounter Summary ---
Author Organization [facility] Address [address] [place] [address] Care Team Providers Care Network Operations Center Technician Name Role Phone Osmani Contreras MD Primary Care Provider [phone] Encounter Details Date Type Department Care Team (Late st Contact Info) Description 01/11/2012 Ancillary Orders [facility] Laboratory Services [place] [address] [place] [address] DM (diabetes mellitus) ([facility]) Social History Tobacco Use Types Packs/Day Years Used Date Smoking Tobacco: Never Assessed Sex and Gender Information Value Date Recorded Sex Assigned at Not on file Legal Sex Male 3:06 AM GALLERY OR MUSEUM ATTENDANT Gender Identity Not on file Sexual Orientation [...] - 6.2 % 01/12/2012 1:01 AM CDT [facility] EST. AVG GLUCOSE, A1C 355 mg/dL 01/12/2012 1:01 AM CDT [facility] Blood specimen (specimen) 01/11/2012 10:05 PM CDT 01/11/2012 11:13 PM CDT us Osmani Contreras MD CHEMISTRY ORDERABLES Final Resu lt [facility] CLIA # [id number] [address] [facility] [address] [place] [address] documented in this encounter Visit Diagnoses Diagnosis DM (diabetes mellitus) (CMS/[facility]) Type II or unspecified type diabetes mellitus without mention of complication, not stated as uncontrolled documented in this encounter Additional Health Concerns Infection Onset Date Last Indicated Resolved Time C Diff Comment:Resolved 09/08/2018, Infection Prevention 03/11/16 ([facility]) 03/25/2016 03/25/2016 8 7:46 AM GALLERY OR MUSEUM ATTENDANT documented as of this encounter Care Teams Network Operations Center Technician Relationship Specialty Start Date End Date Osmani Contreras MD [address] [place] [address] PCP - General Family Practice 12/04/15 documented as of this encounter
--- OUTSIDE RECORDS SUMMARY | 2025-10-15 14:44 | XMS_ITS | Encounter Summary ---
Author Organization [place] [employer], [facility] Address [address] [facility] [facility] [address] [place] [address] Phone Care Team Providers Care Sewer Maintenance Supervisor Name Role Phone Unavailable Primary Care Provider Unavailabl e Reason for Visit * Reason Comments Med Refill Encounter Details Date Type Department Care Team (Late st Contact Info) Description 09/28/2025 [facility] [employer] [address] [facility] [address] [place] [address] Beatrice Young NP [address] [facility] [employer] [facility] [address] [place] [address] Social History Tobacco Use Types [...]
--- OUTSIDE RECORDS SUMMARY | 2025-10-15 14:44 | XMS_ITS | Encounter Summary ---
Author Organization [facility] Address [address] [facility] [place] [address] Care Team Providers Care Power Transformer Inspector Name Role Phone Osmani Contreras MD Primary Care Provider [phone] Encounter Details Date Type Department Care Team (Latest Contact Info) Description 09/08/2004 Outpatient Historical [facility] [address] [place] [phone] Sarwat Naidu MD [address] [place] [phone] ABDOMINAL PAIN UNSPEC SITE (Primary Dx); HYPERTENSION NOS Social History Tobacco Use Types Packs/Day Years Used Date Smoking Tobacco: Never Assessed Sex and Gender Information Value Date Recorded Sex Assigned at Not on file Legal Sex Male 3:06 AM LIFE SKILLS COORDINATOR VOLUNTEER Gender Identity Not on file Sexual Orientation [facility]) 03/25/2016 03/25/2016 8 7:46 AM LIFE SKILLS COORDINATOR VOLUNTEER documented as of this encounter Care Teams Power Transformer Inspector Relationship Specialty Start Date End Date Osmani Contreras MD [address] [place] [address] PCP - General Family Practice 12/04/15 documented as of this encounter
--- OUTSIDE RECORDS SUMMARY | 2025-10-15 14:44 | XMS_ITS | Encounter Summary ---
Author Organization [facility] Address [address] [place] [address] Care Team Providers Care Knife Grinder Name Role Phone Osmani Contreras MD Primary Care Provider [phone] Encounter Details Date Type Department Care Team (Latest Contact Info) Description 09/16/2004 Outpatient Historical [facility] Endoscopy [place] [address] [place] [address] Theodore Lugo MD [address] [place] [address] REFLUX ESOPHAGITIS (Primary Dx) Social History Tobacco Use Types Packs/Day Years Used Date Smoking Tobacco: Never Assessed Sex and Gender Information Value Date Recorded Sex Assigned at Not on file Legal Sex Male 3:06 AM CHAIN BUILDER Gender Identity Not on file Sexual Orientation Not on file documented as of this encounter Plan of Treatment Not on file documented as of this encounter Visit Diagnoses Diagnosis Reflux esophagitis- Primary documented in this encounter Additional Health Concerns Infection Onset Date Last Indicated Resolved Time C Diff Comment:Resolved 09/08/2018, Infection Prevention 03/11/16 ([facility]) 03/25/2016 03/25/2016 8 7:46 AM CHAIN BUILDER documented as of this encounter Care Teams Knife Grinder Relationship Specialty Start Date End Date Osmani Contreras MD [address] [place] [address] PCP - General Family Practice 12/04/15 documented as of this encounter
--- OUTSIDE RECORDS SUMMARY | 2025-10-15 14:44 | XMS_ITS | Clinical Summary ---
Author Organization [facility] Address [address] 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 Auto titration CPAP set [...] 18 mcg by inhalation daily. 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 1 Each 0 6 Active diltiazem [...] with meals. 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 AND BURR OPERATOR Gender Identity Not on file Sexual [...] 07/25/2018, 2014 Medical Devices Implanted Type Area Service Dispatcher Device Identifier Shelf Expiration Date Model / Serial / Lot Screw Hex Int Rc Bl 6.4x110 [id number] - [id number] Implanted:Qty: 1 on 03/30/2019 by Colt Garza MD at [facility] Screw Right: Femur [employer] 07/30/2025 [id number] / / [id number] Screw Hex Int Rc Bl 6.4x115 [id number] - [id number] Implanted:Qty: 1 on 03/30/2019 by Colt Garza MD at [facility] Screw Right: Femur [employer] 01/08/2022 [id number] / / [id number] Screw Trgn Lp 5.0x50mm 1084-2854 - [id number] Implanted:Qty: 1 on 03/30/2019 by Colt Garza MD at [facility] Screw Right: Femur [employer] 02/11/2029 [id number] / / [id number] Screw Trgn Lp 5.0x60mm 8924-9003 - [id number] Implanted:Qty: 1 on 03/30/2019 by Colt Garza MD at [facility] Screw Right: Femur [employer] 10/11/2026 [id number] / / [id number] Nail Implanted:Qty: 1 on 03/30/2019 by Colt Garza MD at [facility] Right: Femur [employer] 08/10/2020 [id number] / / [id number] Explanted Type Area Service Dispatcher Device Identifier Shelf Expiration Date Model / Serial / Lot Nail Fan Jud Rt 11.2vmm08ct [id number] - [id number] Implanted:Qty: 1 on 09/07/2018 by Colt Garza MD at [facility] Explanted:Qty: 1 on 03/30/2019 by Colt Garza MD at [facility] Nail Right: Femur [employer] 10/04/2025 [id number] / / [id number] Description:INV Screw Hex Int Rc Bl 6.4x110 [id number] - [id number] Implanted:Qty: 1 on 09/07/2018 by Colt Garza MD at [facility] Explanted:Qty: 1 on 03/30/2019 by Colt Garza MD at [facility] Screw Right: Femur [employer] 05/19/2027 [id number] / / [id number] Description:INV Screw Hex Int Rc Bl 6.4x115 [id number] - [id number] Implanted:Qty: 1 on 09/07/2018 by Colt Garza MD at [facility] Explanted:Qty: 1 on 03/30/2019 by Colt Garza MD at [facility] Screw Right: Femur [employer] 12/08/2019 [id number] / / [id number] Description:INV Screw Trgn Lp 5.0x52.5mm 1735-9545 - [id number] Implanted:Qty: 1 on 09/07/2018 by Colt Garza MD at [facility] Explanted:Qty: 1 on 03/30/2019 by Colt Garza MD at [facility] Screw Right: Femur [employer] 03/13/2028 [id number] / / [id number] Description:INV Screw Trgn Lp 5.0x47.5mm 7049-0608 - [id number] Implanted:Qty: 1 on 09/07/2018 by Colt Garza MD at [facility] Explanted:Qty: 1 on 03/30/2019 by Colt Garza MD at [facility] Screw Right: Femur [employer] 02/03/2028 [id number] / / [id number] Description:INV Procedures Procedure Name Priority Date/Time Associated Diagnosis Comments HEMOGLOBIN A1C Stat 03/31/2019 10:06 AM CDT LIPID PANEL Stat 01/04/2012 9:00 PM CDT SICK [ICD-9-CM] from Last 3 Months or Most Recently Relevant to Health Maintenance Results * (ABNORMAL) HEMOGLOBIN A1C (03/31/2019 10:06 AM CDT) HEMOGLOBIN A1C 11.4(H) See comment % 03/31/2019 12:05 PM CDT [facility] EST. AVG GLUCOSE, A1C 280 mg/dL 03/31/2019 12:05 PM CDT [facility] Blood BLOOD SPECIMEN / Unknown Venipuncture / Unknown 03/31/2019 10:06 AM CDT 03/31/2019 10:33 AM CDT [facility] - 03/31/2019 12:05 PM CDT HGB A1C INTERPRETATION NORMAL: <5.7% PRE-DIABETES: 5.7 - 6.4% DIABETES: 6.5% OR GREATER Priya Tomas MD CHEMISTRY ORDERAB LES Final Result [facility] CLIA# [id number] [facility] [place] [address] * (ABNORMAL) LIPID PANEL (01/04/2012 9:00 PM CDT) CHOLESTEROL 231(H) 130 - 200 mg/dL 01/04/2012 11:[address] [facility] TRIGLYCERIDE 108 30 - 200 mg/dL 01/04/2012 11:[address] [facility] HDL 51 35 - 80 mg/dL 01/04/2012 11:[address] [facility] LDL CALCULATED 158(H) 0 - 100 mg/dL 01/04/2012 11:[address] [facility] Blood specimen (specimen) 01/04/2012 9:00 PM CDT 01/04/2012 11:02 PM CDT [facility] - 01/04/2012 11:32 PM CDT TOTAL CHOLESTEROL mg/dL Desirable <200 Borderline high 200-239 High >=240 TRIGLYCERIDES mg/dL Normal <150 Borderline high 150-199 High 200-499 Very high >=500 HDL CHOLESTEROL mg/dL Low <40 Normal 40-60 Desirable >60 LDL CHOLESTEROL mg/dL Optimal <100 Low risk 100-129 Borderline high 130-159 High 160-189 Very high >=190 Based on AHA/NCEP Guidelines Chelsey Garcia [place] HAT CUTTER CHEMISTRY ORDERABLES Final Result [facility] CLIA # [id number] [address] [facility] [address] [place] [address] from Last 3 Months or Most Recently Relevant to Health Maintenance Insurance [place] Medicare Part D [id number] PLUS [id number] O Advance Directives For more information, please contact: [phone] * Full Code (Latest Code Status on [...] 12:46 AM 04/05/2016 7:09 PM Care Teams Heavy Lift Rigger Relationship Specialty Start Date End Date Osmani Contreras MD [address] [place] [address] PCP - General Family Practice 12/04/15
--- OUTSIDE RECORDS SUMMARY | 2025-10-15 14:44 | XMS_ITS | Encounter Summary ---
Author Organization [facility] Address [address] [place] [address] Care Team Providers Care Aircraft Instrument Mechanic Name Role Phone Osmani Contreras MD Primary Care Provider [phone] Reason for Visit * Reason Comments Medication Refill Encounter Details Date Type Department Care Team (Late st Contact Info) Description 05/14/2016 [facility]ill [facility] [address] [place] [address] [facility] [place] [facility] NO ADDRESS ON FILE Social History Tobacco Use Types Packs/Day Years Used Date Smoking Tobacco: Former Smokeless Tobacco: Current Chew Alcohol Use Standard Drinks/Week Comments Yes 0 (1 standard drink = 0.6 oz pur e alcohol) rare Sex and Gender Information Value Date Recorded Sex Assigned at Not on file Legal Sex Male 3:06 AM SENIOR TECHNICAL BUSINESS ANALYST Gender Identity Not on file Sexual [...] [facility]) 03/25/2016 03/25/2016 8 7:46 AM SENIOR TECHNICAL BUSINESS ANALYST documented as of this encounter Care Teams Aircraft Instrument Mechanic Relationship Specialty Start Date End Date Osmani Contreras MD [address] [place] [address] PCP - General Family Practice 12/04/15 documented as of this encounter
--- OUTSIDE RECORDS SUMMARY | 2025-10-15 14:44 | XMS_ITS | Encounter Summary ---
Author Organization [facility] Address [address] [place] [address] Care Team Providers Care Business Owner/Engineer Name Role Phone Osmani Contreras MD Primary Care Provider [phone] Encounter Details Date Type Department Care Team (Late st Contact Info) Description 01/04/2012 Ancillary Orders [facility] [place] [address] [place] [address] Sick Social History Tobacco Use Types Packs/Day Years Used Date Smoking Tobacco: Never Assessed Sex and Gender Information Value Date Recorded Sex Assigned at Not on file Legal Sex Male 3:06 AM MEDICAL RECORDS RECEPTIONIST Gender Identity Not on file Sexual Orientation [...] growth) Streptococcus salivarius(A) 01/06/2012 6:27 PM CDT [facility] GRAM STAIN Few Gram positive cocci 01/06/2012 6:27 PM CDT [facility] GRAM STAIN No WBC's observed 012 6:27 PM CDT [facility] Wound drainage 01/04/2012 9: 00 PM CDT 01/04/2012 11:02 PM CDT Narrative [facility] - 01/06/2012 6:27 PM CDT Left great toe. Sensitivity not normally preformed. Chelsey Prince [facility] MICROBIOLOGY - GENERAL ORDE LANE Final Result [facility] [employer] [facility] CLIA # [id number] [address] [place] [address] * (ABNORMAL) CBC WITH DIFFERENTIAL (01/04/2012 9:00 PM CDT) WBC 7.6 4.2 - 9.1 K/uL 01/04/2012 11:09 PM CDT [facility] RBC 5.33 4.63 - 6.08 M/uL 01/04/2012 11:09 PM [facility] [employer] [facility] HEMOGLOBIN 15.3 13.7 - 17.5 g/dL 01/04/2012 11:09 PM [facility] [employer] [facility] HEMATOCRIT 42.0 40.1 - 51.0 % 01/04/2012 11:09 PM T [facility] [employer] [facility] MCV 78.8(L) 79.0 - 92.2 fL 01/04/2012 11:09 PM CDT [facility] [employer] [facility] MCH 28.7 25.7 - 32.2 pg 01/04/2012 [facility] MCHC 36.4 32.3 - 36.5 g/dL 01/04/2012 11:09 PM [facility] [employer] [facility] RDW 12.8 11.0 - 14.5 % 01/04/2012 11:09 PM CDT [facility] [employer] [facility] RDW-STDEV 36.6 fL 01/04/2012 11:09 PM CDT [facility] [place] PLATELETS 265 130 - 400 K/uL 01/04/2012 11:09 PM CDT [facility] [place] MPV 10.6 10.0 - 14.8 fL 01/04/2012 11:09 PM CDT [facility] [place] NEUTROPHILS 49 34 - 68 % 01/04/2012 11:09 PM CDT [facility] [place] LYMPHOCYTES 40 22 - 53 % 01/04/2012 11:09 PM CDT [facility] [place] MONOCYTES 9 5 - 12 % 01/04/2012 11:09 PM CDT [facility] [place] EOSINOPHILS 2 1 - 7 % 01/04/2012 11:09 PM CDT [facility] [place] BASOPHILS 1 0 - 1 % 01/04/2012 11:09 PM CDT [facility] [place] NEUTROPHIL ABSOLUTE 3.72 1.78 - 5.38 K/uL 01/04/2012 11:09 PM CDT [facility] [place] LYMPHOCYTE ABSOLUTE 3.03 1.20 - 3.40 K/uL 01/04/2012 11:09 PM CDT [facility] [place] MONOCYTE ABSOLUTE 0.65 0.30 - 0.82 K/uL 01/04/2012 11:09 PM CDT [facility] [place] EOSINOPHIL ABSOLUTE 0.11 0.04 - 0.54 K/uL 01/04/2012 11:09 PM CDT [facility] [place] BASOPHILS ABSOLUTE 0.04 0.01 - 0.08 K/uL 01/04/2012 11:09 PM CDT [facility] [place] Blood specimen (specimen) 01/04/2012 9:00 PM CDT 01/04/2012 11:02 PM CDT Chelsey Prince DIPLOMATIC INTERPRETER/TRANSLATOR HEMATOLOGY ORDERABLES Final Result [facility] [place] CLIA # [id number] [address] [place] [address] * (ABNORMAL) LIPID PANEL (01/04/2012 9:00 PM CDT) CHOLESTEROL 231(H) 130 - 200 mg/dL 01/04/2012 11:32 PM CDT [facility] TRIGLYCERIDE 108 30 - 200 mg/dL 01/04/2012 11:32 PM CDT [facility] HDL 51 35 - 80 mg/dL 01/04/2012 11:32 PM CDT [facility] LDL CALCULATED 158(H) 0 - 100 mg/dL 01/04/2012 11:32 PM T [facility] Blood specimen (specimen) 01/04/2012 9:00 PM CDT 01/04/2012 11:02 PM CDT Narrative [facility] - 01/04/2012 11:32 PM CDT TOTAL CHOLESTEROL mg/dL Desirable <200 Borderline high 200-239 High >=240 TRIGLYCERIDES mg/dL Normal <150 Borderline high 150-199 High 200-499 Very high >=500 HDL CHOLESTEROL mg/dL Low <40 Normal 40-60 Desirable >60 LDL CHOLESTEROL mg/dL Optimal <100 Low risk 100-129 Borderline high 130-159 High 160-189 Very high >=190 Based on AHA/NCEP Guidelines Chelsey Prince DIPLOMATIC INTERPRETER/TRANSLATOR CHEMISTRY ORDERABLES Final Result [facility] CLIA # [id number] [address] [place] [address] * (ABNORMAL) BASIC METABOLIC PANEL (01/04/2012 9:00 PM CDT) SODIUM 134(L) 136 - 145 mmol/L 01/04/2012 11:32 PM T [facility] [employer] [facility] POTASSIUM 3.7 3.5 - 5.1 mmol/L 01/04/2012 11:32 PM CDT [facility] CHLORIDE 97(L) 98 - 107 mmol/L 01/04/2012 11:32 PM T [facility] [employer] [facility] CO2 29 21 - 32 mmol/L 01/04/2012 11:32 PM CDT [facility] CALCIUM 9.2 8.5 - 10.1 mg/dL 01/04/2012 11:32 PM T [facility] BUN 19(H) 7 - 18 mg/dL 01/04/2012 11:32 PM CDT [facility] CREATININE 0.90 0.60 - 1.30 mg/dL 01/04/2012 11:32 PM T [facility] GLUCOSE 234(H) 74 - 106 mg/dL 01/04/2012 11:32 PM T [facility] GFR 93 >=60 mL/min/1.7 3 sq meter 01/04/2012 11:32 PM T [facility] GFR, 113 >=60 mL/min/1.7 3 sq meter 01/04/2012 11:32 PM T [facility] Blood specimen (specimen) 01/04/2012 9:00 PM CDT 01/04/2012 11:02 PM CDT Narrative [facility] - 01/04/2012 11:32 PM CDT eGFR has [...] patients with severe liver disease. Chelsey Prince DIPLOMATIC INTERPRETER/TRANSLATOR CHEMISTRY ORDERABLES Final Result Performing Organization Address City/State/[facility] Co de Phone [id number] [address] [place] [address] documented in this encounter Visit Diagnoses Diagnosis Sick Other unknown and unspecified cause of morbidity or mortality documented in this encounter Additional Health Concerns Infection Onset Date Last Indicated Resolved Time C Diff Comment:Resolved 09/08/2018, Infection Prevention 03/11/16 ([facility]) 03/25/2016 03/25/2016 8 7:46 AM MEDICAL RECORDS RECEPTIONIST documented as of this encounter Care Teams Business Owner/Engineer Relationship Specialty Start Date End Date Osmani Contreras MD [address] [place] [address] PCP - General Family Practice 12/04/15 documented as of this encounter
--- OUTSIDE RECORDS SUMMARY | 2025-10-15 14:45 | XMS_ITS | Patient Health Record ---
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 Children: 3 Living with: alone : No [...] Status Risk Notes Problem Diabetic renal disease (522234399) Type 2 diabetes mellitus with diabetic chronic kidney disease (E11.22) Active confirmed Problem Hypomagnesemia (691396399) Hypomagnesemia (E83.42) Active confirmed Problem Chronic kidney disease due to hypertension (009545953353995) Hypertensive chronic kidney disease with stage 1 through stage 4 chronic kidney disease, or unspecified chronic kidney disease (I12.9) Active confirmed Problem 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) Renal tubulo-interstitial disease, unspecified (N15.9) Active confirmed Problem Secondary hyperparathyroidism of renal origin (80080791) Secondary hyperparathyroidism of renal origin (N25.81) Active confirmed Problem Long-term current use of insulin (498417962) parts counterman (current) use of insulin (Z79.4) Active confirmed Problem Iron deficiency anemia (08893616) Iron deficiency anemia, unspecified iron deficiency anemia type (D50.9) Active confirmed Problem Chronic kidney disease stage 4 (530450572) CKD (chronic kidney disease), stage IV (N18.4) Active confirmed Problem Hyperparathyroidism (80413114) Hyperparathyroidism (E21.3) Active confirmed Problem Benign hypertension (58775693) Hypertension, benign (I10) Active confirmed Problem Vitamin D deficiency (61954600) Vitamin D deficiency (E55.9) Active confirmed Problem Acute kidney injury (62451066) Acute kidney injury (N17.9) Active confirmed Problem Hypoalbuminemia (640549733) Hypoalbuminemia (E88.09) Active confirmed Problem Chronic renal failure syndrome (02052760) Chronic kidney disease, unspecified CKD stage (N18.9) Active confirmed Problem Chronic kidney disease stage 3 (disorder) (936349598) Chronic kidney disease, stage 3 unspecified (N18.30) Active confirmed Problem Chronic kidney disease stage 3 (disorder) (552382336) Stage 3 chronic kidney disease, unspecified whether stage 3a or 3b CKD (N18.30) Active confirmed Problem Primary hypertension (78772127) Primary hypertension (I10) Active confirmed Problem Essential hypertension (74726373) Essential hypertension (401.1) 2013 Active confirmed [id number]- Problem Diabetes mellitus type 2 (disorder) (40132637) Type 2 diabetes (250.00) 2011 Active confirmed [id number]- Problem Foot ulcer (27907612) Ulcer of other part of foot (707.15) 2011 Problem resolved confirmed [id number]- Problem Shortness of breath (120076355) Shortness of breath (786.05) 2013 Problem resolved confirmed [id number]- Problem Androgen deficiency (40981633) Testosterone deficiency (257.2) 2013 Problem resolved confirmed [id number]- Problem Low back pain (770058639) Low back pain (724.2) 2013 Problem resolved confirmed [id number]- Problem Tinea corporis (03247822) Tinea corporis (110.5) 2012 Problem resolved confirmed [id number]- Problem Type II diabetes mellitus uncontrolled (880681201) Diabetes mellitus without mention of complications, type II or unspecified type, uncontrolled (250.02) 2013 Problem resolved confirmed [id number]- Problem Shoulder pain (48287593) Shoulder pain (719.41) 2012 Problem resolved confirmed [id number]- Problem Open wound of toe (746240676) Open wound of toe(s) (893.0) 2013 Problem resolved confirmed [id number]- Problem Intermittent claudication (69856882) Intermittent claudication (443.9) 2013 Problem resolved confirmed [id number]- Problem Foot pain (06753141) Foot pain (729.5) 2013 Problem resolved confirmed [id number]- Problem Peripheral neuropathy (327376970) Peripheral neuropathy (356.9) 2011 Problem resolved confirmed [id number]-[id number] [id number]- Problem Needs influenza immunization (065974340) Vaccination against other viral diseases, Influenza (V04.81) 2011 Problem resolved confirmed [id number]- Problem Breast pain (85541601) Breast pain (611.71) 2011 Problem resolved confirmed [id number]- Problem Ankle pain (955088034) Ankle pain (719.47) 2012 Problem resolved confirmed [id number]- Problem Erectile dysfunc tion secondary to diabetes (607.84) 2013 Problem resolved confirmed [id number]- Problem Tinea pedis (1468447) Tinea pedis (110.4) 2012 Problem resolved confirmed [id number]- Problem Administration of vaccine product containing only Streptococcus pneumoniae antigen (procedure) (47410961) Vaccination against pneumococcal pneumonia (V03.82) 2011 Problem resolved confirmed [id number]- Problem Low back pain (652996770) Lower back pain (724.2) 2011 Problem resolved confirmed [id number]- Problem Hypertrophy of tonsils (93183618) Hypertrophy of tonsils (474.11) 2012 Problem resolved confirmed [id number]- Problem Neurologic disorder associated with type II diabetes mellitus (024504045) Peripheral neuropathy secondary to uncontrolled type II diabetes (250.62) 2013 Problem resolved confirmed [id number]- Problem 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) Unspecified skin lesion (239.2) 2013 Problem resolved confirmed [id number]- Plan Of Treatment Pending Test Test Name Order Date Basic Metabolic Panel (BMP) 05592 2023 Ferritin 32364 01/31/2024 Hemoglobin 21917 01/31/2024 Iron Binding Capacity Total 22419 2023 Iron Level 05752 01/31/2024 Magnesium (B) 11237 01/31/2024 Phosphorus (B) 76355 01/31/2024 Protein (U) Random 74785 01/31/2024 Uric Acid (B) 06263 01/31/2024 Vitamin D Total (B) 60052 01/31/2024 Albumin (U) / Body Fluid 09447 Creatinine (U) 68975 01/31/2024 UA Reflex Micro, Reflex Cult 68343, 8101 5, 02508 01/31/2024 PTH Intact 21867 01/31/2024 % Iron Saturation (Fe & TIBC)--33992,835 50 01/31/2024 Future Test Test Name Order Date Albumin 70895 07/11/2024 Basic Metabolic Panel (BMP) 25925 2023 Ferritin 27128 07/11/2024 Hemoglobin 49697 07/11/2024 Iron Binding Capacity Total 82274 2023 Iron Level 33237 07/11/2024 Magnesium (B) 04528 07/11/2024 Phosphorus (B) 53797 07/11/2024 Protein (U) Random 03360 07/11/2024 Uric Acid (B) 04018 07/11/2024 Vitamin D Total (B) 22099 07/11/2024 Creatinine (U) 84976 07/11/2024 UA Reflex Micro, Reflex Cult 69019, 8101 5, 72536 07/11/2024 PTH Intact 43859 07/11/2024 % Iron Saturation (Fe & TIBC)--56636,835 50 07/11/2024 Insurance Providers Payer Name Payer Address Payer Phone Subscriber Number Group Number Insured Name Patient Relationship to Insured Coverage Start Date Coverage End Date [facility] Medicare Dual Complete PPO [address] [address] [place] [address] [phone] [id number] Abimael Cochran Self - patient is the [...]
== END 2025-10-10 14:30 | disposition home or self-care (01) ==
LOC: ER 10-08 01:08 → ER IP 10-08 01:19 → MEDSURG 10-08 07:18 → ER IP 10-15 13:42 → MEDSURG 10-15 13:42
PROVIDERS: Physician Assistant; Admitting Provider Family Medicine; Emergency Provider Emergency Medicine; PCP Nurse Practitioner Family; Visit Provider Registered Nurse
DX: E11.22 Type 2 diabetes mellitus with diabetic chronic kidney disease (principal); I12.0 Hypertensive chronic kidney disease with stage 5 chronic kidney disease or end stage renal disease; N18.6 End stage renal disease; Z99.2 Dependence on renal dialysis; J18.9 Pneumonia, unspecified organism; Z79.4 Long term (current) use of insulin; Z79.82 Long term (current) use of aspirin; Z79.02 Long term (current) use of antithrombotics/antiplatelets; K21.9 Gastro-esophageal reflux disease without esophagitis; I25.10 Atherosclerotic heart disease of native coronary artery without angina pectoris; G62.9 Polyneuropathy, unspecified; F33.9 Major depressive disorder, recurrent, unspecified; E78.5 Hyperlipidemia, unspecified; E66.01 Morbid (severe) obesity due to excess calories; Z68.24 Body mass index [BMI] 24.0-24.9, adult; Z87.891 Personal history of nicotine dependence; F41.9 Anxiety disorder, unspecified
CPT/HCPCS: 36415; 36416; 71045; 71275; 80048; 80053; 82962; 83880; 84100; 84145; 84484; 85025; 86140; 90935; 93005; 93306; 94640; 96372; 96374; 99285; G0378; J0456; J0696; J1644; J1815; J2405; J7050; J7613; J9999; Q0144; Q3014